=== PATIENT | female | born 1965 | race Caucasian/White ===

== ENCOUNTER 2017-02-21 08:10 | Inpatient (IN) | payer OTHER ==
[2017-02-21] MEDS ORDERED: levETIRAcetam 500 MG/5 ML INJECTION VIAL IVPB ONE ×2 (08:25→08:26)
[2017-02-21] MEDS ORDERED: LORAZEPAM CARPU-JECT 2 MG/ML DISP.SYRIN IVPUSH ONE (08:32)
[2017-02-21] MEDS ORDERED: LORAZEPAM CARPU-JECT 2 MG/ML DISP.SYRIN ONE (08:33)
--- NOTE | 2017-02-21 08:43 | PDOC ---
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 As per EMS, the patient at baseline is non verbal and non ambulatory Patient was noted to have multiple seizures at the Assisted and EMS was activated. En route, she had 2 witnessed seizures of what appeared to be tonic clonic seizures as per EMS. She was given 5 mg of IV Versed en route. As per her mortgage processor, the patients last seizure was 6 months ago. HPI is limited. <Tiffany Deng - Last Filed: 02/21/17 11:43> - General History Source: EMS, Assisted Records Exam Limitations: Clinical Condition <Josh Crabtree - Last Filed: 02/21/17 12:16> - General Chief Complaint: Seizure Stated Complaint: SEIZURE Time Seen by Provider: 02/21/17 08:15 Past History <Tiffany Deng - Last Filed: 02/21/17 11:43> - Past Medical History Seizures: Yes (EPILEPSY; NO SEIZURE SINCE 1994) Thyroid Disease: (EXOTROPIA/CONSTIPATION) - Immunization History Immunization Up to Date: Yes - Psycho/Social/Smoking Cessation Hx Anxiety: No Suicidal Ideation: No Smoking History: Never smoked Number of Cigarettes Smoked Daily: 0 Hx Alcohol Use: No Drug/Substance Use Hx: No Substance Use Type: None <Josh Crabtree - Last Filed: 02/21/17 12:16> - Past Medical History Allergies/Adverse Reactions: Allergies Allergy/AdvReac Type Severity Reaction Status Date / Time No Known Allergies Allergy Verified 02/21/17 08:45 Home Medications: Ambulatory Orders Baclofen 10 mg PO TID 05/06/15 Calcium Carbonate/Vitamin D3 [Oyster Shell 500 mg + Vit D Tb] 1 each PO BID Calcium Carbonate/Vitamin D3 [Vitamin D-3 400 Units Tablet] 1 each PO BID Carboxymethylcellulose Sodium [Refresh Liquigel] 15 ml OP Q4H 05/06/15 Cetirizine HCl [Zyrtec -] 10 mg PO DAILY 05/06/15 Chlorhexidine Gluconate 473 ml MM BID 05/06/15 Diazepam [Valium -] 15 mg PO BID 05/06/15 Docusate Liquid [Colace Liquid -] 25 mg PO DAILY 05/06/15 Olopatadine HCl [Pataday] 1 drop OU DAILY 05/06/15 Ranitidine [Zantac -] 150 mg PO BID 05/06/15 Docusate Sodium [Colace -] 100 mg PO DAILY #30 capsule 09/12/16 Review of Systems - Review of Systems Able to Perform ROS?: No <Tiffany Deng - Last Filed: 02/21/17 11:43> *Physical Exam - Vital Signs Last Vital Signs Temp Pulse Resp BP Pulse Ox 95.6 F L 80 20 133/95 100 02/21/17 08:40 02/21/17 08:40 02/21/17 08:40 02/21/17 08:40 02/21/17 08:40 - Physical Exam Comments: 02/21/17 08:56 GENERAL: Non ambulatory, non verbal. Profound mental retardation HEAD: No signs of trauma EYES: Sluggish pupils but reactive. Sclera anicteric, conjunctiva clear ENT: Auricles normal inspection, hearing grossly normal, nares patent, oropharynx clear without exudates. Moist mucosa NECK: Supple. LUNGS: Breath sounds equal, clear to auscultation bilaterally. No wheezes, and no crackles HEART: Regular rate and rhythm, normal S1 and S2, no murmurs, rubs or gallops ABDOMEN: Soft, nontender, normoactive bowel sounds. No guarding, no rebound. No masses MUSCULOSKELETAL: Severe scoliosis. EXTREMITIES: Contracted upper/lower extremities. NEUROLOGICAL: Does not follow commands. <Tiffany Deng - Last Filed: 02/21/17 11:43> Heart Score/ECG Review #1 ECG reviewed & interpreted by me at: 09:35 02/21/17 11:48 NSR 98 with 1st degree AV block, TWI III, T wave flat V5-v6, NO STD/SHONDA, QTC 474 <Josh Crabtree - Last Filed: 02/21/17 12:16> ED Treatment Course - LABORATORY CBC & Chemistry Diagram: 02/21/17 08:25 02/21/17 08:25 - RADIOLOGY Radiograph Interpretation: 02/21/17 09:19 EXAM: RAD/CHEST X-RAY PORTABLE Interpreted by Dr. Spencer Mobley IMPRESSION: Since the prior study of 01/20/2017, again noted is the severe scoliosis with convexity to the left with prominent mediastinum but clear lung lee. There is abdominal distention and an elevated right hemidiaphragm. EXAM: CT/HEAD CT WITHOUT CONTRAST Interpreted by Dr. Parag Vera IMPRESSION: No definite interval change is seen in comparison to a previous CT exam of 09/12/2016. There is no discrete infarct within the limitations of CT. No intracranial hemorrhage is noted. There is no obvious mass lesion on noncontrast imaging. No extra-axial fluid collection is seen. As on the prior study there is at least moderate dilatation of the lateral ventricles and third ventricle. The fourth ventricle is unremarkable in size. No periventricular interstitial edema is noted. As on the prior study there is partial imaging of bilateral ethmoid sinus mucosal thickening and a left sphenoid sinus mucus retention cyst/polyp. <Tiffany Deng - Last Filed: 02/21/17 11:43> - LABORATORY CBC & Chemistry Diagram: 02/21/17 08:25 02/21/17 08:25 - RADIOLOGY Radiology Studies Ordered: Category Date Time Status HEAD CT WITHOUT CONTRAST [CT] Stat CT Scan 02/21/17 08:25 Ordered CHEST X-RAY PORTABLE* [RAD] Stat Radiology 02/21/17 08:25 Ordered <Josh Crabtree - Last Filed: 02/21/17 12:16> Medical Decision Making - Medical Decision Making 02/21/17 10:48 Case discussed with Neurologist, Dr. Vincent Long. 02/21/17 11:43 MicroBlogged [facility] Hospitalist. <Tiffany Deng - Last Filed: 02/21/17 11:43> - Medical Decision Making 02/21/17 08:46 A portion of this note was documented by scribe services under my direction. I have reviewed the details of the note, within reason, and agree with the documentation with the following case summary and management plan written by me. Patient treated in the ED. Nursing notes are reviewed and incorporated into the medical decision-making. Vital signs reviewed. Peripheral IV access obtained by the nurse, laboratory studies are drawn and sent, reviewed and interpreted by myself. Vital Signs Temp Pulse Resp BP Pulse Ox 95.6 F L 80 20 133/95 100 02/21/17 08:40 02/21/17 08:40 02/21/17 08:40 02/21/17 08:40 02/21/17 08:40 51-year-old female from [facility] with history of profound mental retardation, [place] palsy with spastic quadriplegia, scoliosis, epilepsy, bilateral foot deformities, bilateral hip deformity disease status post right hip surgery, constipation, stigmatism, seizure disorder but not on medications presents with multiple seizures today. According to EMS and the mortgage processor, the patient typically does not have seizures. Patient has had multiple seizures. She is nonverbal. To was witnessed by EMS patient was given 5 IM with versed. One was witnessed by me which demonstrated left sided gaze deviation and grand mal seizures. Patient was given 1 g of Keppra and two grams of IV Ativan. We'll need to workup status epilepticus. We'll need to find underlying cause such as infectious. Head CT, labs, ECG, control seizures, and admit. 02/21/17 12:13 CBC, BMP 02/21/17 08:25 02/21/17 08:25 CMP Sodium 140 mmol/L (136-145) 02/21/17 08:25 Potassium 4.0 mmol/L (3.5-5.1) 02/21/17 08:25 Chloride 100 mmol/L (98-107) 02/21/17 08:25 Carbon Dioxide 31 mmol/L (21-32) 02/21/17 08:25 Anion Gap 9 (8-16) 02/21/17 08:25 BUN 10 mg/dL (7-18) D 02/21/17 08:25 Creatinine 0.6 mg/dL (0.55-1.02) D 02/21/17 08:25 Creat Clearance w eGFR > 60 (>60) 02/21/17 08:25 Random Glucose 81 mg/dL (74-106) 02/21/17 08:25 Lactic Acid 4.2 mmol/L (0.4-2.0) H* 02/21/17 08:25 Calcium 9.0 mg/dL (8.5-10.1) 02/21/17 08:25 Total Bilirubin 0.2 mg/dL (0.2-1.0) 02/21/17 08:25 AST 181 U/L (15-37) H D 02/21/17 08:25 ALT 205 U/L (12-78) H D 02/21/17 08:25 Alkaline Phosphatase 150 U/L (45-117) H D 02/21/17 08:25 Creatine Kinase 196 IU/L (26-192) H 02/21/17 08:25 CK-MB (CK-2) 6.729 ng/ml (0.5-3.6) H 02/21/17 08:25 Troponin I < 0.02 ng/ml (0.00-0.05) 02/21/17 08:25 Total Protein 7.2 g/dl (6.4-8.2) D 02/21/17 08:25 Albumin 3.4 g/dl (3.4-5.0) D 02/21/17 08:25 CT head and chest xray reviewed. No acute findings. UA negative. Given low temp, covered with vanc and zosyn. Case discussed with Dr. Long. Will follow as a disaster recovery consultant. Since given keppra, pt has not had another seizure. She has been stable. Case discussed with [facility] hospitalist. Will admit under med/surg admission. Case discussed in detail with admitting physician including history, physical exam and ancillary studies. Admitting physician has assumed care for the patient, will follow all pending diagnostics and will complete the evaluation and treatment. <Josh Crabtree - Last Filed: 02/21/17 12:16> *DC/Admit/Observation/Transfer - Attestations Scribe Attestion: 02/21/17 08:56 Documentation prepared by Tiffany Deng, acting as medical professionals for Josh Crabtree MD. <Tiffany Deng - Last Filed: 02/21/17 11:43> - Discharge Dispostion Admit: Yes <Josh Crabtree - Last Filed: 02/21/17 12:16> Diagnosis at time of Disposition: Status epilepticus - Discharge Dispostion Condition at time of disposition: Stable
[2017-02-21 08:44] VITALS: BMI 14.6
[2017-02-21 09:26] LABS: BASOPHIL 0.3 % (0-2.0); MCH 29.3 pg (25.7-33.7); MCHC 33.3 g/dl (32.0-36.0); MEAN CELL VOLUME 88.1 fl (80-96); MEAN PLT VOLUME 9.4 fl (7.5-11.1); NEUTROPHILS 78.2 % (42.8-82.8); PLATELET COUNT 125 K/MM3 (134-434); RDW 17.7 % (11.6-15.6); WHITE BLOOD COUNT 5.8 K/mm3 (4.0-10.0)
[2017-02-21 09:39] LABS: INR 0.96 (0.82-1.09); PROTHROMBIN TIME (PATIENT) 10.6 SEC (9.98-11.88)
[2017-02-21 09:42] LABS: ACTIVATED PTT 44.2 SECONDS (26.9-34.4)
[2017-02-21 09:49] LABS: ALBUMIN 3.4 g/dl (3.4-5.0); ANION GAP 9 (8-16); BILIRUBIN,TOTAL 0.2 mg/dL (0.2-1.0); CO2 31 mmol/L (21-32); COCKROFT - GAULT 60.2395; CREATININE 0.6 mg/dL (0.55-1.02); GLUCOSE,RANDOM 81 mg/dL (74-106); SGOT/AST 181 U/L (15-37); SGPT/ALT 205 U/L (12-78); TOT PROT 7.2 g/dl (6.4-8.2)
[2017-02-21 09:51] LABS: ALK PHOS 150 U/L (45-117); TROPONIN I < 0.02 ng/ml (0.00-0.05)
[2017-02-21] MEDS ORDERED: PIPERACILLIN/TAZOB 3.375 GM/50 ML PRE-DOCKED IVPB ONE (10:26)
[2017-02-21] MEDS ORDERED: VANCOMYCIN 1,000 MG in DEXTROSE 5%-WATER - 250 ML IVPB ONE (10:27)
[2017-02-21] MEDS ORDERED: PIPERACILLIN/TAZOB 3.375 GM 50 ML IVPB ONE (10:31)
[2017-02-21] MEDS ORDERED: DEXTROSE 50%-WATER 50 ML VIAL IVPUSH ONE (10:49)
[2017-02-21 11:04] LABS: URINE APPEARANCE CLEAR; URINE BILIRUBIN NEGATIVE (NEGATIVE); URINE BLOOD NEGATIVE (NEGATIVE); URINE COLOR STRAW; URINE GLUCOSE (UA) NEGATIVE (NEGATIVE); URINE KETONE NEGATIVE (NEGATIVE); URINE LEUK ESTERASE NEGATIVE (NEGATIVE); URINE NITRITE NEGATIVE (NEGATIVE); URINE PROTEIN NEGATIVE (NEGATIVE); URINE UROBILINOGEN NEGATIVE E.U./dl (0.2-1.0)
[2017-02-21] MEDS ORDERED: DEXTROSE 50%-WATER 50 ML DISP.SYRIN ONE (11:54)
--- NOTE | 2017-02-21 13:03 | HP ---
CHIEF COMPLAINT: Seizure PCP: Dr. Michele ([facility]) HISTORY OF PRESENT ILLNESS: This is a 51-year-old female resident of the [facility] with a history of profound mental retardation, cerebral palsy with spastic quadriplegia, scoliosis, epilepsy (maintained on diazepam 15mg po bid), and chronic constipation brought in to the ED via EMS following multiple seizures this morning. She had two tonic-clonic seizures en route and was given 5mg Versed IM by EMS. She had another witnessed seizure in the ED and was given 2mg Ativan IVP and 1g Keppra IVPB without further seizure episodes. ER course was notable for: (1) Lactic acid 4.2 (2) Head CT: Moderate dilatation of the lateral ventricles and the third ventricle which could be on the basis of aqueduct stenosis; no interval change when compared with prior study performed on 09/12/2016 Recent Travel: None Social History: [facility] resident Smoking: None Alcohol: None Family History: Non-contributory Allergies No Known Allergies Allergy (Verified 02/21/17 08:45) HOME MEDICATIONS: Home Medications Medication Instructions Recorded Baclofen 10 mg PO TID 05/06/15 Calcium Carbonate/Vitamin D3 1 each PO BID 05/06/15 [Oyster Shell 500 mg + Vit D Tb] Calcium Carbonate/Vitamin D3 1 each PO BID 05/06/15 [Vitamin D-3 400 Units Tablet] Carboxymethylcellulose Sodium 15 ml OP Q4H 05/06/15 [Refresh Liquigel] Cetirizine HCl [Zyrtec -] 10 mg PO DAILY 05/06/15 Chlorhexidine Gluconate 473 ml MM BID 05/06/15 Diazepam [Valium -] 15 mg PO BID 05/06/15 Docusate Liquid [Colace Liquid -] 25 mg PO DAILY 05/06/15 Olopatadine HCl [Pataday] 1 drop OU DAILY 05/06/15 Ranitidine [Zantac -] 150 mg PO BID 05/06/15 Docusate Sodium [Colace -] 100 mg PO DAILY #30 capsule 09/12/16 REVIEW OF SYSTEMS Patient is unable to participate. Mother and ticket printer and tagger have not been told that she had fevers or any other issues recently at the [facility]. PHYSICAL EXAMINATION GENERAL: Cachectic, contracted. HEAD: Normal with no signs of trauma. EYES: Pupils equal, round and reactive to light, extraocular movements intact, sclera anicteric, conjunctiva clear. No lid lag. EARS, NOSE, THROAT: Ears normal, nares patent, oropharynx clear without exudates. Moist mucous membranes. NECK: Normal range of motion, supple without lymphadenopathy, JVD, or masses. LUNGS: Scattered ronchi. No accessory muscle use. HEART: Regular rate and rhythm, normal S1 and S2 without murmur, rub or gallop. ABDOMEN: Soft, nontender, not distended, normoactive bowel sounds, no guarding, no rebound, no masses. No hepatomegaly or splenomegaly. MUSCULOSKELETAL: Normal range of motion at all joints. No bony deformities or tenderness. No CVA tenderness. UPPER EXTREMITIES: Contracted. No cyanosis. No clubbing. No peripheral edema. LOWER EXTREMITIES: Contracted. 2+ pulses, warm, well-perfused. No calf tenderness. No peripheral edema. NEUROLOGICAL: Nonverbal at baseline. SKIN: Warm, dry, normal turgor, no rashes or lesions noted, normal capillary refill. ASSESSMENT/PLAN: 51 year old female with known history of epilepsy presenting with breakthrough seizures. Problem List - Problem (1) Seizures Assessment/Plan: -Given Keppra 1g in ED; continue 500mg po bid -Seizure precautions Code(s): R56.9 - UNSPECIFIED CONVULSIONS (2) Thrombocytopenia Assessment/Plan: -Mild, no planned procedures or active bleeding -Monitor Code(s): D69.6 - THROMBOCYTOPENIA, UNSPECIFIED (3) Hypothermia Assessment/Plan: -Isolated measurement on arrival, repeat is normal -No other SIRS criteria present -Given antibiotics in ED out of suspicion for infection based on high lactate, however lactate may be secondary to seizure activity alone. Observe off abx. Give IVF, re-check lactate -Scattered ronchi on exam; repeat CXR tomorrow Code(s): T68.XXXA - HYPOTHERMIA, INITIAL ENCOUNTER (4) Elevated transaminase level Assessment/Plan: -Abdominal u/s -Follow Code(s): R74.0 - NONSPEC ELEV OF LEVELS OF TRANSAMNS & LACTIC ACID DEHYDRGNSE (5) DVT prophylaxis Assessment/Plan: -Lovenox 40mg sq daily Code(s): [id number] - Visit type - Emergency Visit Emergency Visit: Yes ED Registration Date: 02/21/17 Care time: The patient presented to the Emergency Department on the above date and was hospitalized for further evaluation of their emergent condition. - New Patient This patient is new to me today: Yes Date on this admission: 02/21/17 - Critical Care Critical Care patient: No
[2017-02-21] MEDS ORDERED: ONDANSETRON 4 MG/2 ML VIAL IVPB PRN (13:17)
[2017-02-21] MEDS ORDERED: LORAZEPAM CARPU-JECT 2 MG/ML DISP.SYRIN IVPUSH PRN (13:17)
[2017-02-21] MEDS ORDERED: BISACODYL 10 MG SUPP.RECT RC PRN (13:29)
[2017-02-21] MEDS ORDERED: SODIUM CHLORIDE 1,000 ML IV SCH (13:45)
--- NOTE | 2017-02-21 15:27 | EKG ---
Test Reason : Blood Pressure : / mmHG Vent. Rate : 098 BPM Atrial Rate : 098 BPM P-R Int : 216 ms QRS Dur : 082 ms QT Int : 372 ms P-R-T Axes : 031 029 001 degrees QTc Int : 474 ms SINUS RHYTHM WITH 1ST DEGREE A-V BLOCK NONSPECIFIC T WAVE ABNORMALITY ABNORMAL ECG WHEN COMPARED WITH ECG OF 20-JAN-2017 13:26, VENT. RATE HAS INCREASED BY 36 BPM NONSPECIFIC T WAVE ABNORMALITY, WORSE IN INFERIOR LEADS NONSPECIFIC T WAVE ABNORMALITY, WORSE IN ANTEROLATERAL LEADS CLINICAL CORRELATION IS RECOMMENDED BASELINE ARTIFACT Confirmed by MARI CORREA, THERESA ([id number]) on 02/21/2017 3:27:14 PM Referred By: Confirmed By:THERESA GUERRA MD
[2017-02-21] MEDS ORDERED: HYDROmorphone HCL CARPU-JECT 1 MG/1 ML DISP.SYRIN ONE (17:28)
[2017-02-21] MEDS ORDERED: ONDANSETRON 4 MG/2 ML VIAL ONE (17:28)
--- NOTE | 2017-02-21 18:27 | CONSULT ---
Consult - text type - Consultation Consultation Note: NEUROLOGY CONSULTATION is greatly appreciated: Events reviewed and patient examined in ED with her mother and [facility] childcare aide present. Both aide in history. 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 On baclofen, cetirizine, ranitidine and diazepam 15 mg BID. Last seizure was 6 mos. According to mother, Pt has been o Dilantin for most of her life. Transferred to [facility] 2 mos ago. According to Aide, Pt has not been on AED's since admission. Now transferred to ED after witnessed seizure. Given lorazepam and loaded with levetiracetam 500 mg IV. On levetiracetam 50 mg MARY ANN: febrile (?). Neck rigid. Scoliotic. Severe, contractures elbows, wrists, fingers, hips, knees, ankles. Dysmorphic. Neuro: Opens and closes eyes. Follows no commands. PE2 mm RRLA. No response to threat. Withdraws all 4's to pinch. Clonus at both wrists, ankles Brisk reflexes. IMP: Severe, B/L cerebral dysfunction (Severe static encephalopathy/ Cerebral palsy). Spastic tetrapareisis. Seizure disorder. SUGGEST: Continue levetiracetam elixor 500 mg q 12 hrs. R/o occult infection and Rx if indicated. Thank you very much, Vincent Long MD
[2017-02-21] MEDS: diazePAM 5 MG TABLET PO SCH (22:48)
[2017-02-21] MEDS: RANITIDINE HCL 150 MG TABLET (FP) PO SCH (22:48)
[2017-02-21] MEDS: CALCIUM 500MG/VIT-D 200 UNITS COMBO TABLET (FP) PO SCH (22:48)
[2017-02-21] MEDS: CHOLECALCIFEROL (VIT D3 ORAL SOLUTION) 400 UNIT/1 ML DROPS PO SCH (23:30)
[2017-02-21] MEDS: CHLORHEXIDINE GLUCONATE 0.12% 15ML CUP MM SCH (23:31)
[2017-02-21] MEDS: levETIRAcetam 500 MG/5 ML ORAL SOLUTION (UNIT-DOSE CUPS) PO SCH (23:31)
[2017-02-22 07:56] LABS: CALCIUM 8.8 mg/dL (8.5-10.1)
[2017-02-22 08:02] LABS: ALBUMIN 2.9 g/dl (3.4-5.0); ALK PHOS 136 U/L (45-117); ANION GAP 12 (8-16); BILIRUBIN,TOTAL 0.4 mg/dL (0.2-1.0); CO2 26 mmol/L (21-32); CREATININE 0.5 mg/dL (0.55-1.02); GLUCOSE,RANDOM 70 mg/dL (74-106); MAGNESIUM 1.9 mg/dL (1.8-2.4); SGOT/AST 156 U/L (15-37); SGPT/ALT 176 U/L (12-78); TOT PROT 6.2 g/dl (6.4-8.2)
[2017-02-22 08:14] LABS: MCH 29.3 pg (25.7-33.7); MCHC 33.7 g/dl (32.0-36.0); MEAN CELL VOLUME 87.1 fl (80-96); MEAN PLT VOLUME 9.2 fl (7.5-11.1); PLATELET COUNT 135 K/MM3 (134-434); RDW 18.1 % (11.6-15.6); WHITE BLOOD COUNT 9.7 K/mm3 (4.0-10.0)
[2017-02-22] MEDS ORDERED: SENNOSIDES 8.6MG TABLET (FP) PO SCH (10:00)
[2017-02-22] MEDS ORDERED: LORATADINE 10 MG TABLET PO SCH (10:00)
[2017-02-22 10:05] LABS: PLATELET ESTIMATE ADEQUATE (NORMAL)
[2017-02-22] MEDS: ENOXAPARIN NA (PORCINE) 40 MG/0.4 ML DISP.SYRIN SQ SCH (10:10)
[2017-02-22] MEDS: diazePAM 5 MG TABLET PO SCH (10:10)
[2017-02-22] MEDS: CHLORHEXIDINE GLUCONATE 0.12% 15ML CUP MM SCH (10:11)
[2017-02-22] MEDS: RANITIDINE HCL 150 MG TABLET (FP) PO SCH (10:11)
[2017-02-22] MEDS: CALCIUM 500MG/VIT-D 200 UNITS COMBO TABLET (FP) PO SCH (10:11)
[2017-02-22] MEDS: CHOLECALCIFEROL (VIT D3 ORAL SOLUTION) 400 UNIT/1 ML DROPS PO SCH (10:13)
[2017-02-22] MEDS: levETIRAcetam 500 MG/5 ML ORAL SOLUTION (UNIT-DOSE CUPS) PO SCH (10:13)
[2017-02-22] MEDS ORDERED: ACETAMINOPHEN 325 MG TABLET (FP) ONE (11:18)
--- NOTE | 2017-02-22 13:19 | PN ---
Physical Exam: SUBJECTIVE: Patient seen and examined. Aide at the bedside attempting to feed patient. Noted patient not swallowing spoonfuls properly. Patient warm to touch. Aide said pt drank small sips of apple juice this morning. OBJECTIVE: abdomen grossly distended, hypoactive bowel wounds Appears to be vomiting bile, NPO now, insert NGT to protect airway Adominal xray to r/o obstruction +blood culture pending organism, ID consulted Repeated blood cultures Tylenol for fever Vital Signs Period Temp Pulse Resp BP Sys/Ascencio Pulse Ox Last 24 Hr 97.0 F-100.3 F 95-117 18-20 83-102/57-73 96-99 GENERAL: lethargic NECK: Trachea midline, full range of motion, supple. LUNGS: Breath sounds diminished, HEART: tachycardia @117 ABDOMEN: distended abdomen, hypoactive bowel sounds EXTREMITIES: no edema. NEUROLOGICAL: Lethargic, has profound MR Laboratory Results - last 24 hr 02/22/17 02/22/17 06:00 06:00 WBC 9.7 D RBC 4.33 Hgb 12.7 Hct 37.7 MCV 87.1 MCHC 33.7 RDW 18.1 H Plt Count 135 MPV 9.2 Neutrophils % 90.0 H Lymphocytes % 5.0 L D Monocytes % 4.0 Eosinophils % 0.0 D Basophils % 0.0 Band Neutrophils 0.0 Differential Comment Manual diff done Platelet Estimate Adequate Sodium 138 Potassium 3.9 Chloride 100 Carbon Dioxide 26 Anion Gap 12 BUN 12 Creatinine 0.5 L Creat Clearance w eGFR > 60 Random Glucose 70 L Calcium 8.8 Magnesium 1.9 Total Bilirubin 0.4 D AST 156 H ALT 176 H Alkaline Phosphatase 136 H Total Protein 6.2 L Albumin 2.9 L Active Medications Generic Name Dose Route Start Last Admin Trade Name Freq PRN Reason Stop Dose Admin Bisacodyl 10 mg 02/21/17 13:29 Dulcolax Suppository - RC DAILY PRN CONSTIPATION Calcium Carbonate/Cholecalciferol 1 tab 02/21/17 22:00 02/22/17 10:11 Os-Hitesh 500+D - PO 1 tab BID DARWIN Administration Chlorhexidine Gluconate 30 ml 02/21/17 22:00 02/22/17 10:11 Peridex - MM 30 ml BID DARWIN Administration Cholecalciferol 400 unit 02/21/17 22:00 02/22/17 10:13 Vitamin D3 Oral Solution - PO 1 ml BID DARWIN Administration Diazepam 15 mg 02/21/17 22:00 02/22/17 10:10 Valium - PO 15 mg BID DARWIN Administration Enoxaparin Sodium 40 mg 02/22/17 10:00 02/22/17 10:10 Lovenox - SQ 40 mg DAILY DARWIN Administration Levetiracetam 500 mg 02/21/17 22:00 02/22/17 10:13 Keppra Oral Solution - PO 500 mg BID DARWIN Administration Loratadine 10 mg 02/22/17 10:00 02/22/17 10:11 Claritin - PO 10 mg DAILY DARWIN Administration Lorazepam 1 mg 02/21/17 13:17 Ativan Injection - IVPUSH Q2H PRN seizure Non-Formulary Medication 15 ml 02/21/17 14:00 Carboxymethylcellulose Sodium [Refresh Liquigel] OP QID DARWIN Ondansetron HCl 4 mg 02/21/17 13:17 Zofran Injection IVPB Q6H PRN NAUSEA Ranitidine HCl 150 mg 02/21/17 22:00 02/22/17 10:11 Zantac - PO 150 mg BID DARWIN Administration Senna 2 tab 02/22/17 10:00 02/22/17 10:11 Senna - PO 2 tab DAILY DARWIN Administration ASSESSMENT/PLAN: Patient is a 51 year old female who resides at [facility]. 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 She was reported to have had multiple seizures in the [facility] as well as en route to the hospital, where she had 2 witnessed seizures which appeared to be tonic clonic seizures as per ED notes. Neurology: Seizures - acute on chronic Assessment/Plan: Patients presents to ER with multiple witnessed seizure activity In ED given Lorazepam and loaded with levetiracetam 500 mg IV On Keppra 500mg q12 IV and Valium 15mg PO BID (home dose) Last seizure reported to be over 6 months ago Neuro notes reviewed, spoke to Dr. Long about NPO status and converting Valium to standing Ativan 0.5mg for suspected SBO Neurologist aware and in agreement GI: Abdominal distention/rule out SBO Assessment/Plan: Abdomen XRay pending Keep NPO NGT to low intermittent suction Convert Keppra to IV, will d/c valium and convert to standing dose of ativan 0.5mg q6 Monitor for seizures Consider GI consult if no improvement ID: Sepsis rule out - acute Assessement/Plan: Patient now having fevers, tachycardia, lethargy, hypotension Lactic acidosis on admission, now resolved blood culture pending organism, Repeated blood cultures pending ID consulted, started on Vancomycin Endocrine: Hypoglycemia - acute vs. chronic Assessment/Plan: BGMs q4 while NPO F.E.N. Fluids: D5 NS @ 75cc/hr Electrolytes: monitor BMP Nutrition: NPO - NG tube to LIT Prophylaxis: GI: Reglan, Protonix DVT: Lovenox 40mg Disposition: Full Code. Visit type - Emergency Visit Emergency Visit: Yes ED Registration Date: 02/21/17 Care time: The patient presented to the Emergency Department on the above date and was hospitalized for further evaluation of their emergent condition. - New Patient This patient is new to me today: Yes Date on this admission: 02/22/17 - Critical Care Critical Care patient: No - Discharge Referral Referred to [facility] Med [facility].C[facility] No
--- NOTE | 2017-02-22 13:25 | CONSULT ---
Consult Consult Specialty:: infectious diseases Reason for Consultation:: bacteremia,sepsis,lactic acidosis - History of Present Illness History of Present Illness: a 51-year-old female resident of the [facility] with a history of profound mental retardation, cerebral palsy with spastic quadriplegia, scoliosis, epilepsy (maintained on diazepam 15mg po bid), and chronic constipation In the ed patient had seizures and was treated for the same was called because now patient has positive blood cx patient on evaluation looks septic and has distended stomach - History Source History Provided By: Medical Record Limitations to Obtaining History: Clinical Condition - Alcohol/Substance Use Hx Alcohol Use: No - Smoking History Smoking history: Never smoked Aproximately how many cigarettes per day: 0 Home Medications - Allergies Allergies/Adverse Reactions: Allergies Allergy/AdvReac Type Severity Reaction Status Date / Time No Known Allergies Allergy Verified 02/21/17 08:45 - Home Medications Home Medications: Ambulatory Orders Bisacodyl [Biscolax] 10 mg RC DAILY PRN 02/21/17 Calcium 500Mg/Vit-D 200 Units [Os-Hitesh 500+D -] 1 combo PO BID 02/21/17 Carboxymethylcellulose Sodium [Refresh Liquigel] 15 ml OP QID 02/21/17 Cetirizine HCl [24Hour Allergy] 10 mg PO DAILY 02/21/17 Chlorhexidine Gluconate 30 ml MM BID 02/21/17 Cholecalciferol (Vitamin D3) [Vitamin D3 Oral Solution -] 400 unit PO BID Diazepam [Valium] 15 mg PO BID 02/21/17 Ranitidine [Zantac -] 150 mg PO BID 02/21/17 Sennosides [Senna] 2 tab PO DAILY 02/21/17 Review of Systems Unable to obtain ROS, reason: unable to obtain Physical Exam Vital Signs: Vital Signs Temperature 100.3 F H 02/22/17 10:00 Pulse Rate 117 H 02/22/17 10:00 Respiratory Rate 18 02/22/17 10:00 Blood Pressure 102/60 02/22/17 10:00 O2 Sat by Pulse Oximetry (%) 96 02/22/17 09:00 Constitutional: Yes: Other (contracted) Cardiovascular: Yes: Regular Rate and Rhythm Respiratory: Yes: Regular, Rhonchi Gastrointestinal: Yes: Distention, Hyperactive Bowel Sounds Musculoskeletal: Yes: Other Extremities: Yes: Other Neurological: Yes: Other (obtunded) Psychiatric: Yes: Other Labs: CBC, BMP 02/22/17 06:00 02/22/17 06:00 Imaging - Results Chest X-ray: Report Reviewed, Image Reviewed X-ray: Report Reviewed, Image Reviewed Cat Scan: Report Reviewed, Image Reviewed Assessment/Plan Seizures Abdominal distention Sepsis Hypoglycemia lactic acidosis plan iv fluids continue abx zosyn and vanco ng tube close monitoring for fever
[2017-02-22] MEDS ORDERED: ACETAMINOPHEN 1000 MG/100 ML VIAL (NON FORMULARY) IVPB ONE ×2 (13:28→15:15)
[2017-02-22] MEDS ORDERED: ACETAMINOPHEN 650 MG SUPP.RECT PR PRN (13:56)
[2017-02-22] MEDS ORDERED: PANTOPRAZOLE SODIUM 40 MG in SODIUM CHLORIDE 100 ML IVPB SCH (14:00)
[2017-02-22] MEDS ORDERED: LORAZEPAM CARPU-JECT 2 MG/ML DISP.SYRIN IVPUSH PRN (15:46)
[2017-02-22] MEDS ORDERED: LORAZEPAM CARPU-JECT 2 MG/ML DISP.SYRIN IVPUSH SCH ×3 (16:00→17:15)
[2017-02-22] MEDS: METOCLOPRAMIDE HCL INJECTION 10 MG/2 ML VIAL IVPB SCH ×2 (16:55→22:12)
[2017-02-22] MEDS: VANCOMYCIN 1,250 MG in DEXTROSE 5%-WATER - 250 ML IVPB SCH (16:55)
[2017-02-22] MEDS: DEXTROSE 5%-NORMAL SALINE 1,000 ML IV SCH (17:02)
[2017-02-22] MEDS ORDERED: PANTOPRAZOLE SODIUM 100 ML IVPB SCH (17:15)
[2017-02-22] MEDS ORDERED: BISACODYL 10 MG SUPP.RECT RC ONE (17:40)
[2017-02-22] MEDS ORDERED: BISACODYL 10 MG SUPP.RECT PR ONE (17:40)
[2017-02-22] MEDS ORDERED: PIPERACILLIN/TAZOB 3.375 GM/50 ML PRE-DOCKED IVPB ONE ×2 (20:00→22:15)
[2017-02-22] MEDS: LORazepam 2 MG/ML SDV VIAL IVPUSH SCH (22:12)
[2017-02-22] MEDS: levETIRAcetam 500 MG/5 ML INJECTION VIAL IVPB SCH (22:12)
[2017-02-23] MEDS: LORazepam 2 MG/ML SDV VIAL IVPUSH SCH ×3 (04:09→15:02)
[2017-02-23] MEDS: METOCLOPRAMIDE HCL INJECTION 10 MG/2 ML VIAL IVPB SCH ×2 (06:13→15:13)
[2017-02-23 08:10] LABS: BASOPHIL 0.3 % (0-2.0); EOSINOPHIL 0.1 % (0-4.5); MCH 29.6 pg (25.7-33.7); MCHC 33.6 g/dl (32.0-36.0); MEAN CELL VOLUME 88.1 fl (80-96); MEAN PLT VOLUME 9.4 fl (7.5-11.1); PLATELET COUNT 122 K/MM3 (134-434); RDW 18.3 % (11.6-15.6); WHITE BLOOD COUNT 9.5 K/mm3 (4.0-10.0)
--- NOTE | 2017-02-23 08:34 | PN ---
Physical Exam: SUBJECTIVE: Patient seen and examined. Aide at the bedside. Patient is non verbal at baseline. OBJECTIVE: abdomen less distended, hypoactive bowel wounds Vomiting yesterday, made NPO and NGT to protect airway Adominal xray shows large amount of retained stool +blood culture pending organism, ID consulted Repeated blood cultures pending Remains febrile 101F, hypotensive and tachycardic, now on Vanco and Zosyn Will order one time IV Tylenol and monitor AST/ALT elevated Vital Signs Period Temp Pulse Resp BP Sys/Ascencio Pulse Ox Last 24 Hr 97.3 F-100.4 F 104-130 18-20 88-102/49-62 96-96 GENERAL: lethargic NECK: Trachea midline, full range of motion, supple. LUNGS: Breath sounds diminished, HEART: tachycardia @101 ABDOMEN: less distended abdomen, hypoactive bowel sounds EXTREMITIES: no edema. NEUROLOGICAL: Lethargic, has profound MR, seizure precautions Laboratory Results - last 24 hr 02/22/17 02/22/17 02/23/17 06:00 17:29 07:15 WBC 9.5 RBC 3.86 Hgb 11.4 D Hct 34.0 MCV 88.1 MCHC 33.6 RDW 18.3 H Plt Count 122 L MPV 9.4 Neutrophils % 90.0 H 84.0 H Lymphocytes % 5.0 L D 8.9 D Monocytes % 4.0 6.7 Eosinophils % 0.0 D 0.1 D Basophils % 0.0 0.3 D Band Neutrophils 0.0 Differential Comment Manual diff done Platelet Estimate Adequate POC Glucometer 108 Active Medications Generic Name Dose Route Start Last Admin Trade Name Zhouq PRN Reason Stop Dose Admin Acetaminophen 650 mg 02/22/17 13:56 Tylenol Suppository - W[place] Q6H PRN FEVER OR PAIN Bisacodyl 10 mg 02/21/17 13:29 Dulcolax Suppository - RC DAILY PRN CONSTIPATION Enoxaparin Sodium 40 mg 02/22/17 10:00 02/22/17 10:10 Lovenox - SQ 40 mg DAILY DARWIN Administration Vancomycin HCl 1,250 mg/ 250 mls @ 166.667 mls/hr 02/22/17 13:30 02/22/17 16:55 Dextrose IVPB 166.667 mls/hr DAILY DARWIN Administration Protocol Dextrose/Sodium Chloride 1,000 mls @ 75 mls/hr 02/22/17 14:15 02/22/17 17:02 D5-Ns - IV 75 mls/hr ASDIR DARWIN Administration Levetiracetam 500 mg 02/22/17 22:00 02/22/17 22:12 Keppra Injection - IVPB 500 mg BID DARWIN Administration Lorazepam 0.5 mg 02/22/17 17:39 02/23/17 04:09 Ativan Injection - IVPUSH 0.5 mg Q6H-IV DARWIN Administration Metoclopramide HCl 10 mg 02/22/17 14:15 02/23/17 06:13 Reglan Injection - IVPB 10 mg Q8H DARWIN Administration Non-Formulary Medication 15 ml 02/21/17 14:00 Carboxymethylcellulose Sodium [Refresh Liquigel] OP QID DARWIN Ondansetron HCl 4 mg 02/21/17 13:17 Zofran Injection IVPB Q6H PRN NAUSEA Piperacillin Sod/Tazobactam Sod 3.375 gm 02/23/17 02:00 Zosyn 3.375gm Ivpb (Pre-Docked) IVPB Q8H-IV DARWIN Protocol ASSESSMENT/PLAN: Patient is a 51 year old female who resides at [facility]. 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 She was reported to have had multiple seizures in the [facility] as well as en route to the hospital, where she had 2 witnessed seizures which appeared to be tonic clonic seizures as per ED notes. ID: Sepsis - acute Assessement/Plan: Patient continues to have fevers, tachycardia, lethargy, hypotension Lactic acidosis on admission, now resolved blood culture pending organism, Repeated blood cultures pending ID consulted, started on Vancomycin and Zosyn Continue to keep NPO, IVFs, vitals q4 Neurology: Seizures - acute on chronic Assessment/Plan: Patients presents to ER with multiple witnessed seizure activity In ED given Lorazepam and loaded with levetiracetam 500 mg IV On Keppra 500mg q12 IV and Valium 15mg PO BID (home dose) Pt is NPO, Valium on hold and replaced with Ativan 0.5mg q6 Last seizure reported to be over 6 months ago GI: Abdominal distention/rule out SBO Assessment/Plan: Abdomen XRay shows fecal retention, no acute pathology Abdomen less distended today, hypoactive bowels NGT to LIT to protect airway for vomiting episodes apx 200cc of brown drainage noted hmg/hct stable Elevated AST/ALT Assessment/Plan: AST 181>156, ALT 205>176 Continue to trend Hepatitis panel ordered GI consult Endocrine: Hypoglycemia - acute vs. chronic Assessment/Plan: BGMs q4 while NPO F.E.N. Fluids: D5 NS @ 75cc/hr Electrolytes: monitor BMP Nutrition: NPO - NG tube to LIT Prophylaxis: GI: Reglan, Protonix BID DVT: Lovenox 40mg Disposition: Full Code. Visit type - Emergency Visit Emergency Visit: Yes ED Registration Date: 02/21/17 Care time: The patient presented to the Emergency Department on the above date and was hospitalized for further evaluation of their emergent condition. - New Patient This patient is new to me today: No - Critical Care Critical Care patient: No - Discharge Referral Referred to [facility] Med P.C.: No
[2017-02-23] MEDS ORDERED: ACETAMINOPHEN 1000 MG/100 ML VIAL (NON FORMULARY) IVPB ONE (08:35)
[2017-02-23 08:40] LABS: ALBUMIN 2.5 g/dl (3.4-5.0); ANION GAP 10 (8-16); CO2 25 mmol/L (21-32); GLUCOSE,RANDOM 90 mg/dL (74-106)
[2017-02-23 08:45] LABS: ALK PHOS 103 U/L (45-117); BILIRUBIN,TOTAL 0.5 mg/dL (0.2-1.0); CREATININE 0.5 mg/dL (0.55-1.02); SGOT/AST 98 U/L (15-37); SGPT/ALT 128 U/L (12-78); TOT PROT 5.4 g/dl (6.4-8.2)
[2017-02-23] MEDS ORDERED: PANTOPRAZOLE SODIUM 80 MG in SODIUM CHLORIDE 100 ML IVPB SCH (09:00)
[2017-02-23] MEDS ORDERED: PIPERACILLIN/TAZOB 3.375 GM/50 ML PRE-DOCKED IVPB ONE (09:00)
[2017-02-23] MEDS: levETIRAcetam 500 MG/5 ML INJECTION VIAL IVPB SCH ×2 (09:01→21:30)
[2017-02-23] MEDS: ENOXAPARIN NA (PORCINE) 40 MG/0.4 ML DISP.SYRIN SQ SCH (09:01)
[2017-02-23] MEDS ORDERED: POTASSIUM CHLORIDE 10 MEQ in DEXTROSE 5%-NORMAL SALINE 1,000 ML IVPB SCH ×2 (09:45→13:52)
[2017-02-23] MEDS ORDERED: PANTOPRAZOLE SODIUM 100 ML IVPB SCH ×2 (10:00→22:00)
[2017-02-23] MEDS: VANCOMYCIN 1,250 MG in DEXTROSE 5%-WATER - 250 ML IVPB SCH (10:57)
--- NOTE | 2017-02-23 14:05 | PN ---
Progress Note, Physician History of Present Illness: patient still not doing well still with sepsis and fevers but looks better than yesterday - Current Medication List Current Medications: Active Medications Acetaminophen (Tylenol Suppository -) 650 mg MS Q6H PRN PRN Reason: FEVER OR PAIN Last Admin: 02/23/17 09:29 Dose: 650 mg Acetaminophen (Ofirmev Injection -) 1,000 mg IVPB ONCE ONE Stop: 02/23/17 08:36 Last Admin: 02/23/17 09:52 Dose: Not Given Bisacodyl (Dulcolax Suppository -) 10 mg RC DAILY PRN PRN Reason: CONSTIPATION Last Admin: 02/23/17 09:28 Dose: 10 mg Enoxaparin Sodium (Lovenox -) 40 mg SQ DAILY [facility] Last Admin: 02/23/17 09:01 Dose: 40 mg Vancomycin HCl 1,250 mg/ (Dextrose) 250 mls @ 166.667 mls/hr IVPB DAILY DARWIN PRN Reason: Protocol Last Admin: 02/23/17 10:57 Dose: 166.667 mls/hr Dextrose/Sodium Chloride (D5-Ns -) 1,000 mls @ 75 mls/hr IV ASDIR [facility] Last Admin: 02/22/17 17:02 Dose: 75 mls/hr Pantoprazole Sodium (Protonix 40mg Ivpb (Pre-Docked)) 100 mls @ 200 mls/hr IVPB BID [facility] Last Admin: 02/23/17 10:18 Dose: 200 mls/hr Potassium Chloride 10 meq/ (Dextrose/Sodium Chloride) 1,005 mls @ 75 mls/hr IVPB Q13H [facility] Levetiracetam (Keppra Injection -) 500 mg IVPB BID [facility] Last Admin: 02/23/17 09:01 Dose: 500 mg Lorazepam (Ativan Injection -) 0.5 mg IVPUSH Q6H-IV DARWIN Last Admin: 02/23/17 09:38 Dose: Not Given Metoclopramide HCl (Reglan Injection -) 10 mg IVPB Q8H [facility] Last Admin: 02/23/17 06:13 Dose: 10 mg Non-Formulary Medication (Carboxymethylcellulose Sodium [Refresh Liquigel]) 15 ml OP QID [facility] Ondansetron HCl (Zofran Injection) 4 mg IVPB Q6H PRN PRN Reason: NAUSEA Piperacillin Sod/Tazobactam Sod (Zosyn 3.375gm Ivpb (Pre-Docked)) 3.375 gm IVPB Q8H-IV DARWIN PRN Reason: Protocol - Objective Vital Signs: Vital Signs Temperature 98.8 F 02/23/17 10:00 Pulse Rate 101 H 02/23/17 10:00 Respiratory Rate 18 02/23/17 10:00 Blood Pressure 94/59 02/23/17 10:00 O2 Sat by Pulse Oximetry (%) 96 02/23/17 09:00 Constitutional: Yes: Calm, Mild Distress Cardiovascular: Yes: Regular Rate and Rhythm Respiratory: Yes: Regular, Poor Air Entry Gastrointestinal: Yes: Soft, Other (ng tube in place) Musculoskeletal: Yes: Other Extremities: Yes: Other (contracted) Psychiatric: Yes: Other Labs: CBC, BMP 02/23/17 07:15 02/23/17 07:15 INR, PTT INR 0.96 (0.82-1.09) 02/21/17 08:25 Assessment/Plan Seizures Abdominal distention Sepsis Hypoglycemia lactic acidosis plan iv fluids cx result noted continue abx hydration
[2017-02-23] MEDS: PIPERACILLIN/TAZOB 3.375 GM 50 ML IVPB SCH ×2 (15:01→17:30)
[2017-02-23] MEDS: PIPERACILLIN/TAZOB 3.375 GM/50 ML PRE-DOCKED IVPB SCH (15:03)
[2017-02-23] MEDS ORDERED: SODIUM CHLORIDE 500 ML IV STA (16:14)
[2017-02-23] MEDS ORDERED: ONDANSETRON 4 MG/2 ML VIAL IVPB PRN (17:37)
[2017-02-23] MEDS ORDERED: BISACODYL 10 MG SUPP.RECT RC PRN (17:37)
[2017-02-23] MEDS: CARBOXYMETHYLCELLULOSE SODIUM OP SCH ×3 (17:46→18:17)
[2017-02-23] MEDS ORDERED: ACETAMINOPHEN 650 MG SUPP.RECT PR SCH (18:00)
[2017-02-23] MEDS: DEXTROSE 5%-NORMAL SALINE 1,000 ML IV SCH (18:17)
--- NOTE | 2017-02-23 18:47 | CON.GI ---
Consult Consult Specialty:: GI Referred by:: Hospitalists Reason for Consultation:: Abnormal LFTs, abdominal distention - History of Present Illness Chief Complaint: Patient non-verbal History of Present Illness: 51F admitted from [facility] for evaluation of seizures through ER. Her LFTs were elevated on admission, her abdomen was described as distended, she was disimpacted and started having BM's, had an NGT placed with 200cc aspirate suctioned as of now. She was noted to be hypotensive, started on Abx, seen by ID and is being transferred to the ICU. LDFTs have trended down and abdominal US was unable to evaluate soft tissue structures in the abdomen given her body habitus - History Source History Provided By: Medical Record, Caregiver (Nurse) - Past Medical History Additional Medical History: Profound MR - Alcohol/Substance Use Hx Alcohol Use: No - Smoking History Smoking history: Never smoked Aproximately how many cigarettes per day: 0 - Social History Usual Living Arrangement: Jail ADL: Support Services Place of : [facility] Home Medications - Allergies Allergies/Adverse Reactions: Allergies Allergy/AdvReac Type Severity Reaction Status Date / Time No Known Allergies Allergy Verified 02/21/17 08:45 - Home Medications Home Medications: Ambulatory Orders Bisacodyl [Biscolax] 10 mg RC DAILY PRN 02/21/17 Calcium 500Mg/Vit-D 200 Units [Os-Hitesh 500+D -] 1 combo PO BID 02/21/17 Carboxymethylcellulose Sodium [Refresh Liquigel] 15 ml OP QID 02/21/17 Cetirizine HCl [24Hour Allergy] 10 mg PO DAILY 02/21/17 Chlorhexidine Gluconate 30 ml MM BID 02/21/17 Cholecalciferol (Vitamin D3) [Vitamin D3 Oral Solution -] 400 unit PO BID Diazepam [Valium] 15 mg PO BID 02/21/17 Ranitidine [Zantac -] 150 mg PO BID 02/21/17 Sennosides [Senna] 2 tab PO DAILY 02/21/17 Family Disease History - Family Disease History Family History: Unable to Obtain Review of Systems Unable to obtain ROS, reason: Patient non-verbal Physical Exam-GI Vital Signs: Vital Signs Temperature 100.2 F H 02/23/17 14:00 Pulse Rate 102 H 02/23/17 14:00 Respiratory Rate 20 02/23/17 14:00 Blood Pressure 85/57 02/23/17 14:00 O2 Sat by Pulse Oximetry (%) 96 02/23/17 09:00 Constitutional: Yes: Anxious Eyes: No: Sclera Icterus Cardiovascular: Yes: Regular Rate and Rhythm Respiratory: Yes: Other (breath sounds by upper airway noise) Labs: CBC, BMP 02/23/17 07:15 02/23/17 07:15 INR, PTT INR 0.96 (0.82-1.09) 02/21/17 08:25 Imaging - Results Ultrasound: Report Reviewed Problem List - Problems (1) Elevated liver enzymes Assessment/Plan: Trending down without intervention. Suspect ractive secondary to systemic process and from seizure activity. Abdominal US was not a viable modaliy for evaluating solid organs. CT scan of the abdomen/pelvis could be considered to evaluate liver/biliary tract Continue to monitor LFTs Avoid hepatotoxic agents Code(s): R74.8 - ABNORMAL LEVELS OF OTHER SERUM ENZYMES (2) Constipation Assessment/Plan: MiraLAX 17g daily Ok with dulcolax suppository daily PRN Code(s): K59.00 - CONSTIPATION, UNSPECIFIED Qualifiers: Constipation type: unspecified constipation type Qualified Code(s): K59.00 - Constipation, unspecified
[2017-02-23] MEDS: LORAZEPAM CARPU-JECT 2 MG/ML DISP.SYRIN IVPUSH SCH (21:21)
[2017-02-23] MEDS ORDERED: PT OWN MED DRAWER 7, Y5N ONE (21:31)
[2017-02-23] MEDS ORDERED: PANTOPRAZOLE SODIUM 40 MG/100 ML PRE-DOCKED IVPB SCH (22:00)
[2017-02-23] MEDS ORDERED: METOCLOPRAMIDE HCL INJECTION 10 MG/2 ML VIAL IVPB SCH (22:00)
--- NOTE | 2017-02-23 23:07 | CONSULT ---
Consult Consult Specialty:: Pulmonary/Critical Care Reason for Consultation:: Shock - History of Present Illness Chief Complaint: Shock History of Present Illness: This is a 51 year old Group Home resident with a past medical history of severe mental retardation, cerebral palsy with spastic quadriplegia, scoliosis, and epilepsy BIBEMS for seizure activity with hospital course complicated by fever and hypotension now being admitted to ICU for further management of presumed septic shock. At baseline, patient is non-verbal and non-ambulatory. She was noticed to have multiple seizures in the [facility] for which EMS was activated. By report she had tonic clonic seizures for which she received versed with resolution. She was admitted and continued on AEDs. She has chronic constipation and was noted to have a distended abdomen and is s/p NGT placement on 02/22. Today she was febrile (TMax 100.3) and hypotensive to 80s/50s concerning for septic shock. Of note on admission blood cultures from 02/21 were positive for coag negative staph though repeat cultures have remained negative. She was started on Vanc/Zosyn and given 1 L IVF. She is now being admitted to the ICU for further management of shock. On arrival she is normotensive though hypoxic to low 90s on RA with productive cough of yellow sputum. STAT CXR ordered, gutierrez-culture ordered. Continued on Vanc/Zo. - History Source History Provided By: Medical Record Limitations to Obtaining History: Unresponsive - Past Medical History [employer]IT[employer] TE[employer]ER: Yes: Seizure, Other (MR, cerebral palsy) Additional Medical History: Profound MR - Alcohol/Substance Use Hx Alcohol Use: No - Smoking History Smoking history: Never smoked Aproximately how many cigarettes per day: 0 - Social History Usual Living Arrangement: Group Home ADL: Support Services Home Medications - Allergies Allergies/Adverse Reactions: Allergies Allergy/AdvReac Type Severity Reaction Status Date / Time No Known Allergies Allergy Verified 02/21/17 08:45 - Home Medications Home Medications: Ambulatory Orders Bisacodyl [Biscolax] 10 mg RC DAILY PRN 02/21/17 Calcium 500Mg/Vit-D 200 Units [Os-Hitesh 500+D -] 1 combo PO BID 02/21/17 Carboxymethylcellulose Sodium [Refresh Liquigel] 15 ml OP QID 02/21/17 Cetirizine HCl [24Hour Allergy] 10 mg PO DAILY 02/21/17 Chlorhexidine Gluconate 30 ml MM BID 02/21/17 Cholecalciferol (Vitamin D3) [Vitamin D3 Oral Solution -] 400 unit PO BID Diazepam [Valium] 15 mg PO BID 02/21/17 Ranitidine [Zantac -] 150 mg PO BID 02/21/17 Sennosides [Senna] 2 tab PO DAILY 02/21/17 Family Disease History - Family Disease History Family History: Unable to Obtain Review of Systems Unable to obtain ROS, reason: unresponsive Physical Exam Vital Signs: Vital Signs Temperature 99 F 02/23/17 20:02 Pulse Rate 99 H 02/23/17 20:02 Respiratory Rate 20 02/23/17 20:02 Blood Pressure 105/69 02/23/17 20:02 O2 Sat by Pulse Oximetry (%) 96 02/23/17 09:00 Home Medication List Medication Instructions Recorded Confirmed Type Bisacodyl [Biscolax] 10 mg RC DAILY PRN 02/21/17 02/21/17 History Calcium 500Mg/Vit-D 200 Units 1 combo PO BID 02/21/17 02/21/17 History [Os-Hitesh 500+D -] Carboxymethylcellulose Sodium 15 ml OP QID 02/21/17 02/21/17 History [Refresh Liquigel] Cetirizine HCl [24Hour Allergy] 10 mg PO DAILY 02/21/17 02/21/17 History Chlorhexidine Gluconate 30 ml MM BID 02/21/17 02/21/17 History Cholecalciferol (Vitamin D3) 400 unit PO BID 02/21/17 02/21/17 History [Vitamin D3 Oral Solution -] Diazepam [Valium] 15 mg PO BID 02/21/17 02/21/17 History Ranitidine [Zantac -] 150 mg PO BID 02/21/17 02/21/17 History Sennosides [Senna] 2 tab PO DAILY 02/21/17 02/21/17 History Active Medications Generic Name Dose Route Start Last Admin Trade Name Freq PRN Reason Stop Dose Admin Bisacodyl 10 mg 02/23/17 17:37 Dulcolax Suppository - RC DAILY PRN CONSTIPATION Enoxaparin Sodium 40 mg 02/24/17 10:00 Lovenox - SQ DAILY DARWIN Potassium Chloride 10 meq/ 1,005 mls @ 75 mls/hr 02/24/17 02:52 Dextrose/Sodium Chloride IVPB Q13H DARWIN Piperacillin Sod/Tazobactam Sod 50 mls @ 100 mls/hr 02/24/17 02:00 Zosyn 3.375gm Ivpb (Pre-Docked) IVPB Q8H-IV DARWIN Protocol Levetiracetam 500 mg 02/23/17 22:00 02/23/17 21:30 Keppra Injection - IVPB 500 mg BID DARWIN Administration Lorazepam 0.5 mg 02/23/17 21:00 02/23/17 21:21 Ativan Injection - IVPUSH Not Given Q6H-IV DARWIN Ondansetron HCl 4 mg 02/23/17 17:37 Zofran Injection IVPB Q6H PRN NAUSEA Constitutional: Yes: No Distress Eyes: Yes: PERRL HENT: Yes: Normocephalic Cardiovascular: Yes: Regular Rate and Rhythm, S1, S2 Respiratory: Yes: Cough, On Nasal O2, Rhonchi Gastrointestinal: Yes: Soft, Hypoactive Bowel Sounds Renal/: Yes: WNL Musculoskeletal: Yes: Joint Stiffness Extremities: Yes: Deformity Edema: No Integumentary: Yes: WNL Neurological: Yes: Unresponsive Labs: CBC WBC 7.8 K/mm3 (4.0-10.0) 02/23/17 23:00 RBC 3.76 M/mm3 (3.60-5.2) 02/23/17 23:00 Hgb 10.8 GM/dL (10.7-15.3) 02/23/17 23:00 Hct 33.0 % (32.4-45.2) 02/23/17 23:00 MCV 87.7 fl (80-96) 02/23/17 23:00 MCHC 32.7 g/dl (32.0-36.0) 02/23/17 23:00 RDW 18.3 % (11.6-15.6) H 02/23/17 23:00 Plt Count 113 K/MM3 (134-434) L 02/23/17 23:00 MPV 8.8 fl (7.5-11.1) 02/23/17 23:00 Neutrophils % 77.9 % (42.8-82.8) 02/23/17 23:00 Lymphocytes % 11.9 % (8-40) D 02/23/17 23:00 Monocytes % 9.2 % (3.8-10.2) 02/23/17 23:00 Eosinophils % 0.7 % (0-4.5) D 02/23/17 23:00 Basophils % 0.3 % (0-2.0) 02/23/17 23:00 Band Neutrophils 0.0 % (0-10) 02/22/17 06:00 Differential Comment Manual diff done 02/22/17 06:00 Platelet Estimate Adequate (NORMAL) 02/22/17 06:00 CMP Sodium 140 mmol/L (136-145) 02/23/17 07:15 Potassium 3.3 mmol/L (3.5-5.1) L 02/23/17 07:15 Chloride 105 mmol/L (98-107) 02/23/17 07:15 Carbon Dioxide 25 mmol/L (21-32) 02/23/17 07:15 Anion Gap 10 (8-16) 02/23/17 07:15 BUN 16 mg/dL (7-18) D 02/23/17 07:15 Creatinine 0.5 mg/dL (0.55-1.02) L 02/23/17 07:15 Creat Clearance w eGFR > 60 (>60) 02/23/17 07:15 POC Glucometer 108 UNITS (()) 02/22/17 17:29 Random Glucose 90 mg/dL (74-106) D 02/23/17 07:15 Lactic Acid 1.1 mmol/L (0.4-2.0) 02/21/17 11:44 Calcium 8.0 mg/dL (8.5-10.1) L 02/23/17 07:15 Magnesium 1.9 mg/dL (1.8-2.4) 02/22/17 06:00 Total Bilirubin 0.5 mg/dL (0.2-1.0) D 02/23/17 07:15 AST 98 U/L (15-37) H D 02/23/17 07:15 ALT 128 U/L (12-78) H D 02/23/17 07:15 Alkaline Phosphatase 103 U/L (45-117) D 02/23/17 07:15 Creatine Kinase 196 IU/L (26-192) H 02/21/17 08:25 CK-MB (CK-2) 6.729 ng/ml (0.5-3.6) H 02/21/17 08:25 Troponin I < 0.02 ng/ml (0.00-0.05) 02/21/17 08:25 Total Protein 5.4 g/dl (6.4-8.2) L 02/23/17 07:15 Albumin 2.5 g/dl (3.4-5.0) L 02/23/17 07:15 Hepatic Panel Total Bilirubin 0.5 mg/dL (0.2-1.0) D 02/23/17 07:15 AST 98 U/L (15-37) H D 02/23/17 07:15 ALT 128 U/L (12-78) H D 02/23/17 07:15 Alkaline Phosphatase 103 U/L (45-117) D 02/23/17 07:15 Albumin 2.5 g/dl (3.4-5.0) L 02/23/17 07:15 Imaging - Results Chest X-ray: Pending X-ray: Pending (abdominal xray for NGTube placement ordered) EKG: Pending Problem List - Problems (1) Seizures Code(s): R56.9 - UNSPECIFIED CONVULSIONS (2) Altered mental status Code(s): R41.82 - ALTERED MENTAL STATUS, UNSPECIFIED Qualifiers: Altered mental status type: unspecified Qualified Code(s): R41.82 - Altered mental status, unspecified (3) Fever Code(s): R50.9 - FEVER, UNSPECIFIED (4) Hypotension Code(s): I95.9 - HYPOTENSION, UNSPECIFIED Assessment/Plan This is a 51[place] resident with a past medical history of mental retardation , cerebral palsy with spastic quadriplegia, and seizures admitted with new onset seizure activity with course complicated by fever and hypotension now being transferred to the ICU for further management of shock presumably septic in the setting of hospital acquired PNA v. UTI v. bacteremia v. abdominal source. -ID following, continue Vanc/Zo -Gutierrez-culture -Trend lactate -IVFs as needed for goal MAP > 65 -CXR STAT -Abd XRay -Continue NGT to low intermittent suction -Aspiration precautions -NPO for now -Continue AEDs - Lovenox for DVT ppx FULL CODE MAC [place] CC Time: 35 minutes
[2017-02-23 23:13] LABS: BASOPHIL 0.3 % (0-2.0); EOSINOPHIL 0.7 % (0-4.5); MCH 28.7 pg (25.7-33.7); MCHC 32.7 g/dl (32.0-36.0); MEAN CELL VOLUME 87.7 fl (80-96); MEAN PLT VOLUME 8.8 fl (7.5-11.1); NEUTROPHILS 77.9 % (42.8-82.8); PLATELET COUNT 113 K/MM3 (134-434); RDW 18.3 % (11.6-15.6); WHITE BLOOD COUNT 7.8 K/mm3 (4.0-10.0)
[2017-02-23 23:29] LABS: INR 1.14 (0.82-1.09); PROTHROMBIN TIME (PATIENT) 12.6 SEC (9.98-11.88)
[2017-02-23 23:31] LABS: ACTIVATED PTT 35.3 SECONDS (26.9-34.4)
[2017-02-23 23:38] LABS: ALBUMIN 2.5 g/dl (3.4-5.0); ANION GAP 9 (8-16); BILIRUBIN,DIRECT 0.1 mg/dL (0.0-0.2); BILIRUBIN,TOTAL 0.5 mg/dL (0.2-1.0); CALCIUM 7.8 mg/dL (8.5-10.1); CO2 25 mmol/L (21-32); CREATININE 0.4 mg/dL (0.55-1.02); GLUCOSE,RANDOM 87 mg/dL (74-106); SGOT/AST 82 U/L (15-37); SGPT/ALT 117 U/L (12-78); TOT PROT 5.5 g/dl (6.4-8.2); TOT PROT 5.6 g/dl (6.4-8.2)
[2017-02-23 23:39] LABS: ALK PHOS 103 U/L (45-117)
[2017-02-24] MEDS ORDERED: ACETAMINOPHEN 650 MG SUPP.RECT PR SCH
[2017-02-24] MEDS: KCL 10 MEQ IVPB 100 ML IVPB SCH ×3 (00:45→02:26)
[2017-02-24] MEDS: PIPERACILLIN/TAZOB 3.375 GM 50 ML IVPB SCH ×3 (01:14→18:51)
[2017-02-24] MEDS ORDERED: POTASSIUM CHLORIDE 10 MEQ in DEXTROSE 5%-NORMAL SALINE 1,000 ML IVPB SCH (02:52)
[2017-02-24] MEDS: LORAZEPAM CARPU-JECT 2 MG/ML DISP.SYRIN IVPUSH SCH (03:00)
[2017-02-24 06:27] LABS: BASOPHIL 0.2 % (0-2.0); EOSINOPHIL 0.8 % (0-4.5); MCH 29.1 pg (25.7-33.7); MCHC 32.8 g/dl (32.0-36.0); MEAN CELL VOLUME 88.7 fl (80-96); MEAN PLT VOLUME 9.4 fl (7.5-11.1); NEUTROPHILS 79.3 % (42.8-82.8); PLATELET COUNT 117 K/MM3 (134-434); RDW 18.4 % (11.6-15.6); WHITE BLOOD COUNT 7.8 K/mm3 (4.0-10.0)
[2017-02-24 07:00] LABS: ALBUMIN 2.4 g/dl (3.4-5.0); ANION GAP 7 (8-16); CALCIUM 7.5 mg/dL (8.5-10.1); CO2 25 mmol/L (21-32); CREATININE 0.4 mg/dL (0.55-1.02); GLUCOSE,RANDOM 197 mg/dL (74-106); SGOT/AST 66 U/L (15-37); SGPT/ALT 104 U/L (12-78)
[2017-02-24 07:01] LABS: ALK PHOS 94 U/L (45-117); BILIRUBIN,TOTAL 0.4 mg/dL (0.2-1.0); TOT PROT 5.3 g/dl (6.4-8.2)
--- NOTE | 2017-02-24 07:15 | PN ---
Physical Exam: SUBJECTIVE: Patient seen and examined nonverbal, awake, alert, productive cough in bed. Aide at bedside says at baseline, pt does not have a cough. pt was transferred to ICU from med/surg floor due to concern for septic shock as pt was becoming hypotensive. OBJECTIVE: Vital Signs Period Temp Pulse Resp BP Sys/Ascencio Pulse Ox Last 24 Hr 98.6 F-100.3 F 90-116 18-26 85-122/57-78 96-96 GENERAL: The patient is awake in no acute distress. contracted in bed EYES: PERRL, sclera anicteric, conjunctiva clear ENT: oropharynx clear without exudates, moist mucous membranes. LUNGS: rhonchi, scattered crackles at bases. no wheezing, no accessory muscle use. HEART: Regular rhythm, tachycardic, S1, S2 without murmur, rub or gallop. ABDOMEN: Soft, nontender, nondistended, hypoactive bowel sounds, EXTREMITIES: + radial pulses, warm, well-perfused, no edema. all extremities contracted, severe scoliosis of the spine NEUROLOGICAL: pt is nonverbal/noncommunicative, profound MR Laboratory Results - last 24 hr 02/23/17 02/23/17 02/23/17 07:15 07:15 23:00 WBC 9.5 7.8 RBC 3.86 3.76 Hgb 11.4 D 10.8 Hct 34.0 33.0 MCV 88.1 87.7 MCHC 33.6 32.7 RDW 18.3 H 18.3 H Plt Count 122 L 113 L MPV 9.4 8.8 Neutrophils % 84.0 H 77.9 Lymphocytes % 8.9 D 11.9 D Monocytes % 6.7 9.2 Eosinophils % 0.1 D 0.7 D Basophils % 0.3 D 0.3 INR PTT (Actin FS) Sodium 140 Potassium 3.3 L Chloride 105 Carbon Dioxide 25 Anion Gap 10 BUN 16 D Creatinine 0.5 L Creat Clearance w eGFR > 60 Random Glucose 90 D Lactic Acid Calcium 8.0 L Total Bilirubin 0.5 D Direct Bilirubin AST 98 H D ALT 128 H D Alkaline Phosphatase 103 D Total Protein 5.4 L Albumin 2.5 L 02/23/17 02/23/17 02/23/17 23:00 23:00 23:00 WBC RBC Hgb Hct MCV MCHC RDW Plt Count MPV Neutrophils % Lymphocytes % Monocytes % Eosinophils % Basophils % INR 1.14 PTT (Actin FS) 35.3 H Sodium 141 Potassium 3.1 L Chloride 107 Carbon Dioxide 25 Anion Gap 9 BUN 13 Creatinine 0.4 L Creat Clearance w eGFR > 60 Random Glucose 87 Lactic Acid 0.7 Calcium 7.8 L Total Bilirubin 0.5 Direct Bilirubin AST 82 H ALT 117 H Alkaline Phosphatase 103 Total Protein 5.6 L Albumin 2.5 L 02/23/17 02/24/17 02/24/17 23:00 05:15 05:15 WBC 7.8 RBC 3.70 Hgb 10.8 Hct 32.8 MCV 88.7 MCHC 32.8 RDW 18.4 H Plt Count 117 L MPV 9.4 Neutrophils % 79.3 Lymphocytes % 11.6 Monocytes % 8.1 Eosinophils % 0.8 Basophils % 0.2 INR PTT (Actin FS) Sodium 141 Potassium 4.1 D Chloride 109 H Carbon Dioxide 25 Anion Gap 7 L BUN 11 Creatinine 0.4 L Creat Clearance w eGFR > 60 Random Glucose 197 H D Lactic Acid Calcium 7.5 L Total Bilirubin 0.5 0.4 Direct Bilirubin 0.1 AST 82 H 66 H ALT 118 H 104 H Alkaline Phosphatase 104 94 Total Protein 5.5 L 5.3 L Albumin 2.5 L 2.4 L Active Medications Generic Name Dose Route Start Last Admin Trade Name Freq PRN Reason Stop Dose Admin Bisacodyl 10 mg 02/23/17 17:37 Dulcolax Suppository - RC DAILY PRN CONSTIPATION Enoxaparin Sodium 40 mg 02/24/17 10:00 Lovenox - SQ DAILY BRANDEE Piperacillin Sod/Tazobactam Sod 50 mls @ 100 mls/hr 02/24/17 02:00 02/24/17 01: 14 Zosyn 3.375gm Ivpb (Pre-Docked) IVPB 100 mls/hr Q8H-IV BRANDEE Administration Protocol Levetiracetam 500 mg 02/23/17 22:00 02/23/17 21:30 Keppra Injection - IVPB 500 mg BID BRANDEE Administration Lorazepam 0.5 mg 02/23/17 21:00 02/24/17 03:00 Ativan Injection - IVPUSH Not Given Q6H-IV BRANDEE Ondansetron HCl 4 mg 02/23/17 17:37 Zofran Injection IVPB Q6H PRN NAUSEA ASSESSMENT/PLAN: 51 yr old woman with severe static encephalopathy, chronic spastic tetraparesis , and seizure disorder from [place] admitted for seizures found to have fever , hypoxia, and episode hypotension non-responsive to fluid bolus on med/surg floor transferred for concern of septic shock. Cardiovascular - pt did not require pressure support overnight, BP improved in the unit - tachycardia likely caused by fever Infectious Disease sepsis from UTI or aspiration pna zosyn 3.375gm IVPB q8hr gutierrez-cxed last night, pending results Renal florence in place for I&O monitoring Pulmonary saturing well on nasal cannula GI underwent disimpaction yesterday evening, has a hx of chronic constipation bowel regimen with dulcolax suppository zofran 4mg prn IVPB q6hr transaminitis- hepatitis panel pending pending swallow evaluation Neurological seizure d/o [id number] IVPB BID brandee ativan q6h, changed from brandee to prn as pt has not had seizure activity overnight and appears to be lethargic currently functional quadraplegia consult: Dr. bo DVT: lovenox 40sq diet; npo pending speech and swallow eval, at baseline pt takes po without difficulty a [place] Dispo: patient's condition has improved and she can be monitored further on Med/ surg floor Visit type - Emergency Visit Emergency Visit: No - New Patient This patient is new to me today: Yes Date on this admission: 02/24/17 - Critical Care Critical Care patient: Yes Total Critical Care Time (in minutes): 36 Critical Care Statement: The care of this patient involved high complexity decision making to prevent further life threatening deterioration of the patient 's condition and/or to evalute & treat vital organ system(s) failure or risk of failure.
[2017-02-24] MEDS ORDERED: LORAZEPAM CARPU-JECT 2 MG/ML DISP.SYRIN IVPUSH PRN (07:56)
[2017-02-24 09:18] LABS: URINE APPEARANCE SLCLOUDY; URINE BILIRUBIN NEGATIVE (NEGATIVE); URINE COLOR DKYELLOW; URINE GLUCOSE (UA) NEGATIVE (NEGATIVE); URINE KETONE 1+ (NEGATIVE); URINE NITRITE NEGATIVE (NEGATIVE); URINE PROTEIN NEGATIVE (NEGATIVE); URINE UROBILINOGEN NEGATIVE E.U./dl (0.2-1.0)
--- NOTE | 2017-02-24 09:19 | PN ---
Physical Exam: SUBJECTIVE: Patient seen and examined in the ICU. Non verbal at baseline. More awake, alert, eyes open. OBJECTIVE: Transferred to the ICU overnight Minimal output from NGT - will d/c Chest xray read with no evidence of pulmonary consol. or vascular congestion: on my read there is congestion of the right lung base +crackles of right lung base auscultated breathing rate in the 30s Vital Signs Period Temp Pulse Resp BP Sys/Ascencio Pulse Ox Last 24 Hr 98.6 F-100.3 F 90-116 18-26 85-122/57-78 96-99 GENERAL: lethargic, eyes open NECK: Trachea midline, full range of motion, supple. LUNGS: Breath sounds diminished, +crackles at right lung base HEART: sinus rhythm 93 on library monitor ABDOMEN: less distended abdomen, hypoactive bowel sounds EXTREMITIES: no edema. NEUROLOGICAL: Lethargic, has profound MR, seizure precautions Laboratory Results - last 24 hr 02/23/17 02/23/17 02/23/17 23:00 23:00 23:00 WBC 7.8 RBC 3.76 Hgb 10.8 Hct 33.0 MCV 87.7 MCHC 32.7 RDW 18.3 H Plt Count 113 L MPV 8.8 Neutrophils % 77.9 Lymphocytes % 11.9 D Monocytes % 9.2 Eosinophils % 0.7 D Basophils % 0.3 INR 1.14 PTT (Actin FS) 35.3 H Sodium 141 Potassium 3.1 L Chloride 107 Carbon Dioxide 25 Anion Gap 9 BUN 13 Creatinine 0.4 L Creat Clearance w eGFR > 60 Random Glucose 87 Lactic Acid Calcium 7.8 L Total Bilirubin 0.5 Direct Bilirubin AST 82 H ALT 117 H Alkaline Phosphatase 103 Total Protein 5.6 L Albumin 2.5 L Random Vancomycin 02/23/17 02/23/17 02/24/17 23:00 23:00 05:15 WBC 7.8 RBC 3.70 Hgb 10.8 Hct 32.8 MCV 88.7 MCHC 32.8 RDW 18.4 H Plt Count 117 L MPV 9.4 Neutrophils % 79.3 Lymphocytes % 11.6 Monocytes % 8.1 Eosinophils % 0.8 Basophils % 0.2 INR PTT (Actin FS) Sodium Potassium Chloride Carbon Dioxide Anion Gap BUN Creatinine Creat Clearance w eGFR Random Glucose Lactic Acid 0.7 Calcium Total Bilirubin 0.5 Direct Bilirubin 0.1 AST 82 H ALT 118 H Alkaline Phosphatase 104 Total Protein 5.5 L Albumin 2.5 L Random Vancomycin 02/24/17 02/24/17 05:15 05:15 WBC RBC Hgb Hct MCV MCHC RDW Plt Count MPV Neutrophils % Lymphocytes % Monocytes % Eosinophils % Basophils % INR PTT (Actin FS) Sodium 141 Potassium 4.1 D Chloride 109 H Carbon Dioxide 25 Anion Gap 7 L BUN 11 Creatinine 0.4 L Creat Clearance w eGFR > 60 Random Glucose 197 H D Lactic Acid Calcium 7.5 L Total Bilirubin 0.4 Direct Bilirubin AST 66 H ALT 104 H Alkaline Phosphatase 94 Total Protein 5.3 L Albumin 2.4 L Random Vancomycin 9.562 Active Medications Generic Name Dose Route Start Last Admin Trade Name Freq PRN Reason Stop Dose Admin Bisacodyl 10 mg 02/23/17 17:37 Dulcolax Suppository - RC DAILY PRN CONSTIPATION Enoxaparin Sodium 40 mg 02/24/17 10:00 Lovenox - SQ DAILY D[facility]WIN Piperacillin Sod/Tazobactam Sod 50 mls @ 100 mls/hr 02/24/17 02:00 02/24/17 01: 14 Zosyn 3.375gm Ivpb (Pre-Docked) IVPB 100 mls/hr Q8H-IV [facility]AR[facility] Administration Protocol Levetiracetam 500 mg 02/23/17 22:00 02/23/17 21:30 Keppra Injection - IVPB 500 mg BID [facility]WIN Administration Lorazepam 0.5 mg 02/24/17 07:56 Ativan Injection - IVPUSH Q6H-IV PRN MUSCLE SPASMS Ondansetron HCl 4 mg 02/23/17 17:37 Zofran Injection IVPB Q6H PRN NAUSEA ASSESSMENT/PLAN: Patient is a 51 year old female who resides at [facility]. 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 She was reported to have had multiple seizures in the [facility] as well as en route to the hospital, where she had 2 witnessed seizures which appeared to be tonic clonic seizures as per ED notes. Chest xray 02/23/2017: no evidence of pulmonary consol. or vascular congestion: on my read there is congestion of the right lung base, clinical finding + crackles ID: Sepsis - acute Assessement/Plan: Patient now with low grade fevers, heart rate 90s, more wake , blood pressure stabilizing - not on pressors Lactic acidosis on admission, now resolved initial blood culture with staph coag, repeated blood cultures pending ID consulted, started on Zosyn (day 2), was given one dose of Vancomycin 02/22 Continue IVFs Neurology: Seizures - acute on chronic Assessment/Plan: Patients presents to ER with multiple witnessed seizure activity On Keppra 500mg q12 IV and Ativan 0.5mg q6 Last reported seizure prior to admission was over 6 months ago GI: Abdominal distention/rule out SBO Assessment/Plan: Abdomen XRay shows fecal retention, no acute pathology Abdomen less distended today, hypoactive bowels NGT to be removed, minimal drainage overnight of 150cc Elevated AST/ALT Assessment/Plan: AST, ALT trending down Continue to trend Hepatitis panel ordered GI following Endocrine: Hypoglycemia - acute vs. chronic Assessment/Plan: BGMs q4 while NPO F.E.N. Fluids: D5 NS @ 75cc/hr Electrolytes: monitor BMP Nutrition: remove NGT, swallow evaluation Prophylaxis: GI: Reglan, Protonix BID DVT: Lovenox 40mg Disposition: Full Code. Visit type - Emergency Visit Emergency Visit: Yes ED Registration Date: 02/21/17 Care time: The patient presented to the Emergency Department on the above date and was hospitalized for further evaluation of their emergent condition. - New Patient This patient is new to me today: No - Critical Care Critical Care patient: Yes Total Critical Care Time (in minutes): 45 Critical Care Statement: The care of this patient involved high complexity decision making to prevent further life threatening deterioration of the patient 's condition and/or to evalute & treat vital organ system(s) failure or risk of failure.
[2017-02-24 09:36] LABS: URINE BLOOD 3+ (NEGATIVE); URINE LEUK ESTERASE 1+ (NEGATIVE)
[2017-02-24 09:41] LABS: URINE MUCUS RARE; URINE RBC 80 /hpf (0-3); URINE WBC 12 /hpf (3-5)
[2017-02-24] MEDS: levETIRAcetam 500 MG/5 ML INJECTION VIAL IVPB SCH ×2 (10:11→22:51)
[2017-02-24] MEDS: ENOXAPARIN NA (PORCINE) 40 MG/0.4 ML DISP.SYRIN SQ SCH (10:14)
--- NOTE | 2017-02-24 10:36 | CONSULT ---
Admitting History and Physical - Primary Care Physician PCP: Justyn Morse - Admission History of Present Illness: Per emr : "Patient is a 51 year old female who resides at [facility]. 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, Other (MR, cerebral palsy) - Smoking History Smoking history: Never smoked Aproximately how many cigarettes per day: 0 - Alcohol/Substance Use Hx Alcohol Use: No - Social History ADL: Support Services History - Admission Reason For Visit: STATUS EPILEPTICUS - Diagnostics X-ray: Report Reviewed - General Mental Status: Awake and Alert Ability to Follow Directions: Poor Head/Neck Control: Needs Assist Speech Evaluation - Communication Communication: Yes: Non-Communicable Oral Expression Ability: Yes: Non-Verbal, Non-Vocal - Swallow Evaluation/Bedside Assessment Current Nutritional Intake: NPO Oral Secretions: Yes: Drooling, Pooling Dentition: Yes: Adequate Lingual Movement: Symmetric Recommendations - Speech Evaluation, Impression/Plan Impression: Pt with profound cognitive deficits secondary to CP/MR, [facility] resident ,onset of seizures, resulting in admission. Pt is awake, intermittently establishes eye contact. Opens mouth responsively to spoon/cup. Tongue thrust, with tongue remaining fully extended outside of her mouth while swallowing, adversely affecting posterior transfer of the bolus and laryngeal elevation.Bite reflex when fed with spoon. Seems to transfer honey thick liquid better, due to viscosity and assistance of gravity.Pt cups tongue, allowing posterior transfer more easily with thick liquid than puree at this time. No audible upper airway wetness or cough but certainly an aspiration risk. Possibly audible wetness in naso pharynx with suspected nasopharyngeal regurgitation. Call placed to path at [place] and discussed feeding strategies. Pt was on puree/honey thick,ensure pudding,yogurt,prune juice. Likely limited change as compared to baseline swallowing status. - Dysphagia Impressions/Plan Swallowing Skills: Impaired Dysphagia Impressions: Moderate Impairment, Ongoing Evaluation *Silent aspiration: cannot be R/O at bedside Dysphagia Treatment Plan: Small Bites, Clear Pocket Food, Trial Feedings, Safe Rate, 1/2 tsp. at a time, Other (El;evate to 60 degrees.) Recommendations: Other (Monitor pulmonary status.) - Recommendations Diet Consistency: Dysphagia Pureed (mixed with liquid (gravy or a little ensure? ) to increase posterior flow of bolus.) Medication Administration: Crushed with applesauce (mixed with liquid to increase posterior flow of bolus.May be easiest via medicine cup, SMALL sip, wait for oral transfer, swallow.) Liquids: Honey Thick (May be easiest via medicine cup, SMALL sip, wait for oral transfer, swallow.)
--- NOTE | 2017-02-24 11:44 | PN ---
Teaching Attending Note Name of Resident: Cassidy Simon ATTENDING PHYSICIAN STATEMENT I saw and evaluated the patient. I reviewed the resident's note and discussed the case with the resident. I agree with the resident's findings and plan as documented. SUBJECTIVE: Pt seen and examined in the ICU. Blood pressures improving. Fever curve downtrending. OBJECTIVE: Last Vital Signs Temp Pulse Resp BP Pulse Ox 98.9 F 106 H 26 H 120/80 99 02/24/17 11:05 02/24/17 11:05 02/24/17 11:05 02/24/17 11:05 02/24/17 07:50 Intake & Output 02/21/17 02/22/17 02/23/17 02/24/17 23:59 23:59 23:59 23:59 Intake Total 687 485 3206 1250 Output Total 150 950 Balance 961 136 4736 300 Weight 88 lb 4 oz Gen: nonverbal, mildly tachypneic at rest Heart: tachycardic, regular Lung: bilateral rhonchi Abd: soft, nontender Ext: no edema CBC, BMP 02/24/17 05:15 02/24/17 05:15 Active Medications Bisacodyl (Dulcolax Suppository -) 10 mg RC DAILY PRN PRN Reason: CONSTIPATION Enoxaparin Sodium (Lovenox -) 40 mg SQ DAILY [facility] Last Admin: 02/24/17 10:14 Dose: 40 mg Piperacillin Sod/Tazobactam Sod (Zosyn 3.375gm Ivpb (Pre-Docked)) 50 mls @ 100 mls/hr IVPB Q8H-IV DARWIN PRN Reason: Protocol Last Admin: 02/24/17 10:14 Dose: 100 mls/hr Levetiracetam (Keppra Injection -) 500 mg IVPB BID [facility] Last Admin: 02/24/17 10:11 Dose: 500 mg Lorazepam (Ativan Injection -) 0.5 mg IVPUSH Q6H-IV PRN PRN Reason: MUSCLE SPASMS Ondansetron HCl (Zofran Injection) 4 mg IVPB Q6H PRN PRN Reason: NAUSEA ASSESSMENT AND PLAN: New Onset Seizure UTI r/o Pneumonia Sepsis Elevated LFTs Mental Retardation Cerebral Palsy Functional Quadriplegia - continue antibiotics - f/u cultures - check CXR - aspiration precautions - IVF - antiepileptics - O2 to keep Spo2 >90% - DVT prophylaxis - can monitor on floor critical care time spent in reviewing chart, evaluating patient and formulating plan 35 min
--- NOTE | 2017-02-24 17:12 | PN ---
Progress Note, Physician History of Present Illness: events noted from last night patient became hypotensive transferred to icu currently patient is stable more awake - Current Medication List Current Medications: Active Medications Bisacodyl (Dulcolax Suppository -) 10 mg RC DAILY PRN PRN Reason: CONSTIPATION Enoxaparin Sodium (Lovenox -) 40 mg SQ DAILY [facility] Last Admin: 02/24/17 10:14 Dose: 40 mg Piperacillin Sod/Tazobactam Sod (Zosyn 3.375gm Ivpb (Pre-Docked)) 50 mls @ 100 mls/hr IVPB Q8H-IV DARWIN PRN Reason: Protocol Last Admin: 02/24/17 10:14 Dose: 100 mls/hr Levetiracetam (Keppra Injection -) 500 mg IVPB BID [facility] Last Admin: 02/24/17 10:11 Dose: 500 mg Lorazepam (Ativan Injection -) 0.5 mg IVPUSH Q6H-IV PRN PRN Reason: MUSCLE SPASMS Ondansetron HCl (Zofran Injection) 4 mg IVPB Q6H PRN PRN Reason: NAUSEA - Objective Vital Signs: Vital Signs Temperature 98.9 F 02/24/17 10:00 Pulse Rate 88 02/24/17 13:17 Respiratory Rate 26 H 02/24/17 12:00 Blood Pressure 136/97 02/24/17 13:17 O2 Sat by Pulse Oximetry (%) 99 02/24/17 07:50 Constitutional: Yes: No Distress, Calm Cardiovascular: Yes: Regular Rate and Rhythm Respiratory: Yes: Regular, CTA Bilaterally Gastrointestinal: Yes: Normal Bowel Sounds, Soft Musculoskeletal: Yes: Other Extremities: Yes: Other Neurological: Yes: Alert, Other Psychiatric: Yes: Alert, Other Labs: CBC, BMP 02/24/17 05:15 02/24/17 05:15 INR, PTT INR 1.14 (0.82-1.09) 02/23/17 23:00 - ....Imaging Chest X-ray: Report Reviewed, Image Reviewed Assessment/Plan Seizures Abdominal distention Sepsis Hypoglycemia lactic acidosis ng tube removed plan iv fluids cx result noted continue zosyn monitor bp cc time 40 min
--- NOTE | 2017-02-24 18:16 | PN ---
GI Progress Note Subjective: No acute events NGT removed. Minimal output per nurse - Objective Vital Signs: Vital Signs Temperature 98.9 F 02/24/17 10:00 Pulse Rate 79 02/24/17 17:59 Respiratory Rate 26 H 02/24/17 12:00 Blood Pressure 136/97 02/24/17 13:17 O2 Sat by Pulse Oximetry (%) 100 02/24/17 17:59 Constitutional: Calm Eyes: No: Sclera Icterus Cardiovascular: Yes: Regular Rate and Rhythm Respiratory: Yes: Diminished (at bases w/ poor insp effort) Gastrointestinal Inspection: Yes: Distention (protuberant. severe spinal scoliosis making examination of the right abdomen and pelvis limited) ...Auscultate: Yes: Normoactive Bowel Sounds Extremities: Yes: Other (contractures) Edema: No Neurological: Yes: Other (awake) Labs: CBC, BMP 02/24/17 05:15 02/24/17 05:15 INR, PTT INR 1.14 (0.82-1.09) 02/23/17 23:00 Problem List - Problems (1) Elevated liver enzymes Assessment/Plan: Continuing to trend down Hepatitis serologies pending Code(s): R74.8 - ABNORMAL LEVELS OF OTHER SERUM ENZYMES (2) Constipation Assessment/Plan: MiraLAX 17g daily. If cannot take miralax the OK with dulcolax suppositories 1 IL daily Mineral oil enema 1 IL every other day as outpatient Code(s): K59.00 - CONSTIPATION, UNSPECIFIED Qualifiers: Constipation type: unspecified constipation type Qualified Code(s): K59.00 - Constipation, unspecified
[2017-02-25 00:06] LABS: HEP B SURFACE AB Reactive (.)
[2017-02-25] MEDS: PIPERACILLIN/TAZOB 3.375 GM 50 ML IVPB SCH ×4 (02:40→17:17)
[2017-02-25 06:36] LABS: BASOPHIL 0.3 % (0-2.0); EOSINOPHIL 1.5 % (0-4.5); MCH 29.4 pg (25.7-33.7); MCHC 33.6 g/dl (32.0-36.0); MEAN CELL VOLUME 87.6 fl (80-96); MEAN PLT VOLUME 8.5 fl (7.5-11.1); NEUTROPHILS 78.5 % (42.8-82.8); PLATELET COUNT 136 K/MM3 (134-434); RDW 17.7 % (11.6-15.6); WHITE BLOOD COUNT 7.3 K/mm3 (4.0-10.0)
[2017-02-25 07:13] LABS: ALBUMIN 2.4 g/dl (3.4-5.0); ANION GAP 6 (8-16); BILIRUBIN,TOTAL 0.4 mg/dL (0.2-1.0); CALCIUM 7.9 mg/dL (8.5-10.1); CO2 30 mmol/L (21-32); COCKROFT - GAULT 141.695; CREATININE 0.3 mg/dL (0.55-1.02); GLUCOSE,RANDOM 79 mg/dL (74-106); SGOT/AST 38 U/L (15-37); SGPT/ALT 78 U/L (12-78); TOT PROT 5.3 g/dl (6.4-8.2)
[2017-02-25 07:14] LABS: ALK PHOS 97 U/L (45-117)
[2017-02-25] MEDS: ENOXAPARIN NA (PORCINE) 40 MG/0.4 ML DISP.SYRIN SQ SCH ×2 (09:00→12:08)
[2017-02-25] MEDS: levETIRAcetam 500 MG/5 ML INJECTION VIAL IVPB SCH ×3 (09:00→22:10)
[2017-02-25] MEDS ORDERED: ONDANSETRON 4 MG/2 ML VIAL IVPB PRN (09:05)
[2017-02-25] MEDS ORDERED: LORAZEPAM CARPU-JECT 2 MG/ML DISP.SYRIN IVPUSH PRN (09:05)
--- NOTE | 2017-02-25 11:03 | PN ---
Physical Exam: SUBJECTIVE: Patient seen and examined. laying in bed, in no acute distress. episode of choking when being fed this morning on pureed diet. OBJECTIVE: Vital Signs Period Temp Pulse Resp BP Sys/Ascencio Pulse Ox Last 24 Hr 97.6 F-100.7 F 78-112 18-28 97-136/62-97 100-100 GENERAL: The patient is awake in no acute distress. contracted in bed EYES: PERRL, sclera anicteric, conjunctiva clear ENT: oropharynx clear without exudates, moist mucous membranes. LUNGS: rhonchi, scattered crackles at bases. no wheezing, no accessory muscle use. HEART: Regular rhythm, tachycardic, S1, S2 without murmur, rub or gallop. ABDOMEN: Soft, nontender, nondistended, hypoactive bowel sounds, EXTREMITIES: + radial pulses, warm, well-perfused, no edema. all extremities contracted, severe scoliosis of the spine NEUROLOGICAL: pt is nonverbal/noncommunicative, profound MR Laboratory Results - last 24 hr 02/23/17 02/24/17 02/24/17 07:20 07:00 11:42 WBC RBC Hgb Hct MCV MCHC RDW Plt Count MPV Neutrophils % Lymphocytes % Monocytes % Eosinophils % Basophils % Sodium Potassium Chloride Carbon Dioxide Anion Gap BUN Creatinine Creat Clearance w eGFR POC Glucometer 132.75436 Random Glucose Calcium Total Bilirubin AST ALT Alkaline Phosphatase Total Protein Albumin Ur Specific Maribel >= 1.030 H Hep A IgM Ab Confirm Negative Hepatitis A Ab Total Positive H Hep Bs Antigen Negative Hep Bs Antibody Reactive Hep B Core Total Ab Positive H 02/25/17 02/25/17 05:45 05:45 WBC 7.3 RBC 3.52 L Hgb 10.4 L Hct 30.9 L MCV 87.6 MCHC 33.6 RDW 17.7 H Plt Count 136 MPV 8.5 Neutrophils % 78.5 Lymphocytes % 11.3 Monocytes % 8.4 Eosinophils % 1.5 D Basophils % 0.3 Sodium 142 Potassium 3.6 Chloride 106 Carbon Dioxide 30 Anion Gap 6 L BUN 8 D Creatinine 0.3 L D Creat Clearance w eGFR > 60 POC Glucometer Random Glucose 79 D Calcium 7.9 L Total Bilirubin 0.4 AST 38 H D ALT 78 D Alkaline Phosphatase 97 Total Protein 5.3 L Albumin 2.4 L Ur Specific Maribel Hep A IgM Ab Confirm Hepatitis A Ab Total Hep Bs Antigen Hep Bs Antibody Hep B Core Total Ab Active Medications Generic Name Dose Route Start Last Admin Trade Name Freq PRN Reason Stop Dose Admin Bisacodyl 10 mg 02/25/17 09:05 Dulcolax Suppository - RC DAILY PRN CONSTIPATION Enoxaparin Sodium 40 mg 02/25/17 10:00 Lovenox - SQ DAILY [facility] Famotidine/Sodium Chloride 50 mls @ 100 mls/hr 02/25/17 10:00 Pepcid 20 Mg Premixed Ivpb - IVPB BID [facility] Piperacillin Sod/Tazobactam Sod 50 mls @ 100 mls/hr 02/25/17 10:00 Zosyn 3.375gm Ivpb (Pre-Docked) IVPB Q8H-IV BRAN[facility]E Protocol Levetiracetam 500 mg 02/25/17 10:00 Keppra Injection - IVPB BID [facility]E Lorazepam 0.5 mg 02/25/17 09:05 Ativan Injection - IVPUSH Q6H-IV PRN MUSCLE SPASMS Ondansetron HCl 4 mg 02/25/17 09:05 Zofran Injection IVPB Q6H PRN NAUSEA Polyethylene Glycol 17 gm 02/25/17 10:00 Miralax (For Daily Use) - PO DAILY BRAN[facility]E ASSESSMENT/PLAN: 51 yr old woman with severe static encephalopathy, chronic spastic tetraparesis , and seizure disorder from [place] admitted for seizures found to have fever , hypoxia, and episode hypotension non-responsive to fluid bolus on med/surg floor transferred for concern of septic shock. Cardiovascular - BP normotensive - tachycardia now intermittent Infectious Disease sepsis from UTI or aspiration pna zosyn 3.375gm IVPB q8hr + cleocin gutierrez-cxed: Bld cx NGTD, urine cx pending Renal florence in place for I&O monitoring Pulmonary saturing well on nasal cannula left lower infiltrate - likely aspiration pna GI hx of chronic constipation bowel regimen with dulcolax suppository zofran 4mg prn IVPB q6hr transaminitis- hepatitis panel pending - shows possible Heb B vaccine and Hep A antibody keep npo and on clinemix until pt's cup from [place] is brought in for evaluation by Elida Zapata, recommendations discussed with nursing for proper head position, consistency of food and feeding technique Neurological seizure d/o [id number] IVPB BID brandee ativan q6h prn functional quadraplegia consult: Dr. bo DVT: lovenox 40sq diet; npo pending further evaluation Dispo: patient's condition has improved and she can be monitored further on Med/ surg floor Visit type - Emergency Visit Emergency Visit: No - New Patient This patient is new to me today: No - Critical Care Critical Care patient: Yes Total Critical Care Time (in minutes): 36 Critical Care Statement: The care of this patient involved high complexity decision making to prevent further life threatening deterioration of the patient 's condition and/or to evalute & treat vital organ system(s) failure or risk of failure.
--- NOTE | 2017-02-25 11:15 | PN ---
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 Pt given cereal on a tsp with choking and resp distress. Swallowing reassessed. Seems more passive today, initially with tight lip seal, not accepting po trial. Pt became more accepting of care, opening mouth although more guarded. Protruding tongue with funnel shape, allowing liquid best. Pt accepted several small sips from me with a delayed, overtly functional swallow. Aspiration can not be r/o at bedside. REC: Position symmetrically,to 60 degrees/head flexed with pillow honey thick liquid via medicine cup, 1/2 tsp at a time, wait for swallow reflex. Puree mixed with liquid, either ensure compact or gravy, to thinned out consistency, may be best given via cup Spoke with [facility] Sp Path/cup/yara spoon used. Observe tolerance and for sufficient nutrition/hydration.
[2017-02-25] MEDS: FAMOTIDINE 20 MG/50 ML IVPB 50 ML IVPB SCH ×2 (12:09→22:10)
--- NOTE | 2017-02-25 12:18 | PN ---
Teaching Attending Note Name of Resident: Cassidy Simon ATTENDING PHYSICIAN STATEMENT I saw and evaluated the patient. I reviewed the resident's note and discussed the case with the resident. I agree with the resident's findings and plan as documented. SUBJECTIVE: Pt seen and examined in the ICU. Choking with eating this AM. CXR showing increasing left base consolidation. Low grade fever overnight. OBJECTIVE: Last Vital Signs Temp Pulse Resp BP Pulse Ox 99.8 F H 109 H 18 123/98 100 02/25/17 10:00 02/25/17 12:07 02/25/17 12:07 02/25/17 12:07 02/25/17 07:43 Intake & Output 02/22/17 02/23/17 02/24/17 02/25/17 23:59 23:59 23:59 23:59 Intake Total 850 2075 1875 150 Output Total 150 1550 300 Balance 850 1925 325 -150 Gen: NAD at rest Heart: tachycardic, regular Lung: bilateral rhonchi Abd: soft, nontender Ext: no edema CBC, BMP 02/25/17 05:45 02/25/17 05:45 Active Medications Bisacodyl (Dulcolax Suppository -) 10 mg RC DAILY PRN PRN Reason: CONSTIPATION Enoxaparin Sodium (Lovenox -) 40 mg SQ DAILY [facility] Last Admin: 02/25/17 12:08 Dose: Not Given Famotidine/Sodium Chloride (Pepcid 20 Mg Premixed Ivpb -) 50 mls @ 100 mls/hr IVPB BID [facility] Last Admin: 02/25/17 12:09 Dose: Not Given Piperacillin Sod/Tazobactam Sod (Zosyn 3.375gm Ivpb (Pre-Docked)) 50 mls @ 100 mls/hr IVPB Q8H-IV [facility] PRN Reason: Protocol Last Admin: 02/25/17 12:09 Dose: Not Given Levetiracetam (Keppra Injection -) 500 mg IVPB BID [facility] Last Admin: 02/25/17 12:08 Dose: Not Given Lorazepam (Ativan Injection -) 0.5 mg IVPUSH Q6H-IV PRN PRN Reason: MUSCLE SPASMS Ondansetron HCl (Zofran Injection) 4 mg IVPB Q6H PRN PRN Reason: NAUSEA Polyethylene Glycol (Miralax (For Daily Use) -) 17 gm PO DAILY [facility] ASSESSMENT AND PLAN: New Onset Seizure UTI Pneumonia Sepsis Elevated LFTs Mental Retardation Cerebral Palsy Functional Quadriplegia - continue antibiotics - aspiration precautions - IVF - antiepileptics - O2 to keep Spo2 >90% - DVT prophylaxis - can monitor on floor
--- NOTE | 2017-02-25 14:46 | PN ---
Physical Exam: SUBJECTIVE: Patient seen and examined, aide at the bedside. States patient was restless overnight. OBJECTIVE: Still having low grade fevers Unable to tolerate meals today, started on Clinimax Vital Signs Period Temp Pulse Resp BP Sys/Ascencio Pulse Ox Last 24 Hr 98 F-100.7 F 78-112 18-28 97-127/62-98 100-100 GENERAL: lethargic, eyes open NECK: Trachea midline, full range of motion, supple. LUNGS: Breath sounds diminished HEART: sinus rhythm 93 on alarm security or surveillance monitor ABDOMEN: less distended abdomen, hypoactive bowel sounds EXTREMITIES: no edema. NEUROLOGICAL: Lethargic, has profound MR, seizure precautions Laboratory Results - last 24 hr 02/23/17 02/24/17 02/25/17 07:20 17:33 05:45 WBC 7.3 RBC 3.52 L Hgb 10.4 L Hct 30.9 L MCV 87.6 MCHC 33.6 RDW 17.7 H Plt Count 136 MPV 8.5 Neutrophils % 78.5 Lymphocytes % 11.3 Monocytes % 8.4 Eosinophils % 1.5 D Basophils % 0.3 Sodium Potassium Chloride Carbon Dioxide Anion Gap BUN Creatinine Creat Clearance w eGFR Random Glucose POC Glucometer 97.19504 Calcium Total Bilirubin AST ALT Alkaline Phosphatase Total Protein Albumin Hep A IgM Ab Confirm Negative Hepatitis A Ab Total Positive H Hep Bs Antigen Negative Hep Bs Antibody Reactive Hep B Core Total Ab Positive H 02/25/17 05:45 WBC RBC Hgb Hct MCV MCHC RDW Plt Count MPV Neutrophils % Lymphocytes % Monocytes % Eosinophils % Basophils % Sodium 142 Potassium 3.6 Chloride 106 Carbon Dioxide 30 Anion Gap 6 L BUN 8 D Creatinine 0.3 L D Creat Clearance w eGFR > 60 Random Glucose 79 D POC Glucometer Calcium 7.9 L Total Bilirubin 0.4 AST 38 H D ALT 78 D Alkaline Phosphatase 97 Total Protein 5.3 L Albumin 2.4 L Hep A IgM Ab Confirm Hepatitis A Ab Total Hep Bs Antigen Hep Bs Antibody Hep B Core Total Ab Active Medications Generic Name Dose Route Start Last Admin Trade Name Freq PRN Reason Stop Dose Admin Bisacodyl 10 mg 02/25/17 09:05 Dulcolax Suppository - RC DAILY PRN CONSTIPATION Enoxaparin Sodium 40 mg 02/25/17 10:00 02/25/17 12:08 Lovenox - SQ Not Given DAILY DARWIN Famotidine/Sodium Chloride 50 mls @ 100 mls/hr 02/25/17 10:00 02/25/17 12:09 Pepcid 20 Mg Premixed Ivpb - IVPB Not Given BID DARWIN Piperacillin Sod/Tazobactam Sod 50 mls @ 100 mls/hr 02/25/17 10:00 02/25/17 12: 09 Zosyn 3.375gm Ivpb (Pre-Docked) IVPB Not Given Q8H-IV DARWIN Protocol Levetiracetam 500 mg 02/25/17 10:00 02/25/17 12:08 Keppra Injection - IVPB Not Given BID DARWIN Lorazepam 0.5 mg 02/25/17 09:05 Ativan Injection - IVPUSH Q6H-IV PRN MUSCLE SPASMS Ondansetron HCl 4 mg 02/25/17 09:05 Zofran Injection IVPB Q6H PRN NAUSEA Polyethylene Glycol 17 gm 02/25/17 10:00 Miralax (For Daily Use) - PO DAILY D[facility]WIN ASSESSMENT/PLAN: Patient is a 51 year old female who resides at [facility]. 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 She was reported to have had multiple seizures in the [facility] as well as en route to the hospital, where she had 2 witnessed seizures which appeared to be tonic clonic seizures as per ED notes. Chest xray 02/24/2017: left lower lobe consolidation. ID: Sepsis - acute Assessment/Plan: Patient now with low grade fevers, heart rate 90s, more wake, blood pressure stabilizing - not on pressors Lactic acidosis on admission, now resolved initial blood culture with staph coag, repeated blood cultures pending ID consulted, started on Zosyn (day 3), was given one dose of Vancomycin 02/22 Continue IVFs Neurology: Seizures - acute on chronic Assessment/Plan: Patients presents to ER with multiple witnessed seizure activity On Keppra 500mg q12 IV and Ativan 0.5mg q6 Last reported seizure prior to admission was over 6 months ago GI: Abdominal distention/rule out SBO Assessment/Plan: Abdomen XRay shows fecal retention, no acute pathology Abdomen less distended today, hypoactive bowels NGT to be removed, minimal drainage overnight of 150cc Elevated AST/ALT Assessment/Plan: AST, ALT trending down Continue to trend Hepatitis panel pending GI following Endocrine: Hypoglycemia - acute vs. chronic Assessment/Plan: BGMs q4 while NPO Protein Calorie Malnutrition Assessment/Plan: Hypokalemia resolved BMI 17.2, low albumin and total protein low She has profound MR, cerebral palsy, severe static encephalopahty NGT removed, RD consulted, swallow evaluation, Ensure with meals, pureed diet, honey thick liquids Monitor weights, intake and output Clinimax until patient able to tolerate pureed diet F.E.N. Fluids: started on Clinimax for poor PO intake Electrolytes: monitor BMP Nutrition: pureed diet, honey thick, aspiration precautions Prophylaxis: GI: zofran, miralax, dulcolax DVT: Lovenox 40mg Disposition: Full Code. Visit type - Emergency Visit Emergency Visit: Yes ED Registration Date: 02/21/17 Care time: The patient presented to the Emergency Department on the above date and was hospitalized for further evaluation of their emergent condition. - New Patient This patient is new to me today: No - Critical Care Critical Care patient: Yes Total Critical Care Time (in minutes): 60 Critical Care Statement: The care of this patient involved high complexity decision making to prevent further life threatening deterioration of the patient 's condition and/or to evalute & treat vital organ system(s) failure or risk of failure.
--- NOTE | 2017-02-25 15:23 | PN ---
Progress Note, Physician History of Present Illness: patient more awake but according to the aide who takes care of her she is not at par now spiking low grade fevers - Current Medication List Current Medications: Active Medications Bisacodyl (Dulcolax Suppository -) 10 mg RC DAILY PRN PRN Reason: CONSTIPATION Enoxaparin Sodium (Lovenox -) 40 mg SQ DAILY [facility] Last Admin: 02/25/17 12:08 Dose: Not Given Famotidine/Sodium Chloride (Pepcid 20 Mg Premixed Ivpb -) 50 mls @ 100 mls/hr IVPB BID [facility] Last Admin: 02/25/17 12:09 Dose: Not Given Piperacillin Sod/Tazobactam Sod (Zosyn 3.375gm Ivpb (Pre-Docked)) 50 mls @ 100 mls/hr IVPB Q8H-IV DARWIN PRN Reason: Protocol Last Admin: 02/25/17 12:09 Dose: Not Given Amino Acids (Clinimix -) 1,000 mls @ 42 mls/hr IV Q24H DARWIN Clindamycin Phosphate (Cleocin 600 Mg Premix Ivpb -) 50 mls @ 100 mls/hr IVPB Q6H-IV DARWIN Levetiracetam (Keppra Injection -) 500 mg IVPB BID [facility] Last Admin: 02/25/17 12:08 Dose: Not Given Lorazepam (Ativan Injection -) 0.5 mg IVPUSH Q6H-IV PRN PRN Reason: MUSCLE SPASMS Ondansetron HCl (Zofran Injection) 4 mg IVPB Q6H PRN PRN Reason: NAUSEA Polyethylene Glycol (Miralax (For Daily Use) -) 17 gm PO DAILY [facility] - Objective Vital Signs: Vital Signs Temperature 99.8 F H 02/25/17 10:00 Pulse Rate 109 H 02/25/17 12:07 Respiratory Rate 18 02/25/17 12:07 Blood Pressure 123/98 02/25/17 12:07 O2 Sat by Pulse Oximetry (%) 100 02/25/17 07:43 Constitutional: Yes: No Distress, Calm Cardiovascular: Yes: Regular Rate and Rhythm Respiratory: Yes: Regular, Poor Air Entry, Rhonchi Gastrointestinal: Yes: Normal Bowel Sounds, Soft Musculoskeletal: Yes: Other Extremities: Yes: Other Neurological: Yes: Alert Psychiatric: Yes: Alert Labs: CBC, BMP 02/25/17 05:45 02/25/17 05:45 INR, PTT INR 1.14 (0.82-1.09) 02/23/17 23:00 - ....Imaging Chest X-ray: Report Reviewed, Image Reviewed Assessment/Plan Seizures Abdominal distention Sepsis Hypoglycemia lactic acidosis ng tube removed plan iv fluids cx result noted continue zosyn will add clinda i suggest to keep the patient npo cc time 40 min
[2017-02-25] MEDS: POLYETHYLENE GLYCOL 3350 119 GM BTL PO SCH (15:24)
[2017-02-25] MEDS: CLINDAMYCIN 600MG PREMIX IVPB 50 ML IVPB SCH ×2 (16:10→21:00)
[2017-02-25] MEDS: AMINO ACIDS 4.25%/D5W 1,000 ML IV SCH (19:02)
--- NOTE | 2017-02-25 22:22 | PN ---
Progress Note (short form) - Note Progress Note: NEUROLOGY F/U: Events reviewed. Patient examined. Discussed with her two long-term caregivers at the bedside. Caregivers note that Pt is much more awake, alert and nearing her baseline except for some difficulty swallowing. "A whole lot better." On antibiotics but continues with intermittent low-grade temps. No seizures on levetiracetam 500 mg q 12 hrs. EXAM: Awake. Eyes open. Full roving EOM's. Blinks to threat all lee. Gag present. Tetraparesis with contractures. Brisk reflexes. IMP: Severe static encephalopathy. Seizure disorder Toxic-metabolic encephalopathy. Suggest: Continue antibiotics and hydration. Begin to feed cautiously with HOB elevated Continue Levetiracetam 500 mg q!2 hrs. Can give IV for now but would convert to elixor (PO or enteric feeding) as soon as feasible. Continue levetiracetam as out patient. No need to resume/restart diphenylhidantoin. Thank you very much, Vincent Long MD
[2017-02-26] MEDS: CLINDAMYCIN 600MG PREMIX IVPB 50 ML IVPB SCH ×4 (02:37→21:00)
[2017-02-26] MEDS: PIPERACILLIN/TAZOB 3.375 GM 50 ML IVPB SCH ×3 (02:38→18:12)
[2017-02-26] MEDS: levETIRAcetam 500 MG/5 ML INJECTION VIAL IVPB SCH ×2 (09:39→22:40)
[2017-02-26] MEDS: ENOXAPARIN NA (PORCINE) 40 MG/0.4 ML DISP.SYRIN SQ SCH (09:40)
[2017-02-26] MEDS: FAMOTIDINE 20 MG/50 ML IVPB 50 ML IVPB SCH ×2 (09:43→22:40)
[2017-02-26] MEDS: POLYETHYLENE GLYCOL 3350 119 GM BTL PO SCH (10:00)
--- NOTE | 2017-02-26 10:04 | PN ---
Progress Note, AUTOMATION APPLICATION ENGINEER - Note Progress Note: Selected Entries 02/25/17 02/25/17 02/25/17 02:00 06:00 07:42 Temperature 99.2 F 100.7 F H 99.8 F H 02/25/17 02/25/17 02/25/17 10:00 16:00 20:00 Temperature 99.8 F H 100 F H 100.2 F H 02/25/17 02/26/17 02/26/17 22:00 02:00 04:00 Temperature 100.3 F H 99.7 F H 99.2 F 02/26/17 02/26/17 06:00 08:00 Temperature 100 F H 99.9 F H Laboratory Tests 02/24/17 02/25/17 05:15 05:45 WBC 7.8 7.3 RCC NA reports she clenched her lips yesterday and did not eat all day. However, today pt accepted and tolerated all of hot cereal, mixed with ensure, and a little OJ. Pt now on Clinimix. Monitor PO tolerance/sufficient acceptance as she improves.
--- NOTE | 2017-02-26 11:05 | PN ---
Physical Exam: SUBJECTIVE: Patient seen and examined at the bedside. She is more awake and alert today. Aide at the bedside, states patient appears at her baseline. OBJECTIVE: continue Clinimax Still having fevers, may be aspirating feeds, make NPO now 2 liter of nasal cannula Non pitting edema of bilateral feet, likely secondary to fluid overload: monitor Vital Signs Period Temp Pulse Resp BP Sys/Ascencio Pulse Ox Last 24 Hr 99.2 F-100.3 F 88-109 18-28 102-129/58-98 100-100 GENERAL: more awake, eyes open, minimal eye contact NECK: Trachea midline, full range of motion, supple. LUNGS: Breath sounds diminished HEART: sinus rhythm on supervisor compressed yeast ABDOMEN: soft, non distended distended abdomen, +bowel sounds EXTREMITIES: non pitting edema of bilateral feet NEUROLOGICAL: profound MR, seizure precautions Laboratory Results - last 24 hr 02/24/17 17:33 POC Glucometer 97.19298 Active Medications Generic Name Dose Route Start Last Admin Trade Name Freq PRN Reason Stop Dose Admin Bisacodyl 10 mg 02/25/17 09:05 Dulcolax Suppository - RC DAILY PRN CONSTIPATION Enoxaparin Sodium 40 mg 02/25/17 10:00 02/26/17 09:40 Lovenox - SQ 40 mg DAILY DARWIN Administration Famotidine/Sodium Chloride 50 mls @ 100 mls/hr 02/25/17 10:00 02/26/17 09:43 Pepcid 20 Mg Premixed Ivpb - IVPB 100 mls/hr BID DARWIN Administration Piperacillin Sod/Tazobactam Sod 50 mls @ 100 mls/hr 02/25/17 10:00 02/26/17 09: 40 Zosyn 3.375gm Ivpb (Pre-Docked) IVPB 100 mls/hr Q8H-IV DARWIN Administration Protocol Amino Acids 1,000 mls @ 42 mls/hr 02/25/17 15:15 02/25/17 19:02 Clinimix - IV 42 mls/hr Q24H DARWIN Administration Clindamycin Phosphate 50 mls @ 100 mls/hr 02/25/17 15:30 02/26/17 09:39 Cleocin 600 Mg Premix Ivpb - IVPB 100 mls/hr Q6H-IV DARWIN Administration Levetiracetam 500 mg 02/25/17 10:00 02/26/17 09:39 Keppra Injection - IVPB 500 mg BID DARWIN Administration Lorazepam 0.5 mg 02/25/17 09:05 Ativan Injection - IVPUSH Q6H-IV PRN MUSCLE SPASMS Ondansetron HCl 4 mg 02/25/17 09:05 Zofran Injection IVPB Q6H PRN NAUSEA Polyethylene Glycol 17 gm 02/25/17 10:00 02/25/17 15:24 Miralax (For Daily Use) - PO Not Given DAILY DARWIN ASSESSMENT/PLAN: Patient is a 51 year old female who resides at [facility]. 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 She was reported to have had multiple seizures in the [facility] as well as en route to the hospital, where she had 2 witnessed seizures which appeared to be tonic clonic seizures as per ED notes. Chest xray 02/24/2017: left lower lobe consolidation. ID: Sepsis - improving Assessment/Plan: Patient now with low grade fevers, heart rate 90s, more wake, blood pressure stabilizing- not on pressors Lactic acidosis on admission, now resolved initial blood culture with staph coag, repeated blood cultures with no growth to date ID [email or web address] started on Zosyn (day 4), Clindamycin (day 2) One dose of Vancomycin 02/22 Neurology: Seizures - acute on chronic Assessment/Plan: Patients presents to ER with multiple witnessed seizure activity On Keppra 500mg q12 IV and Ativan 0.5mg q6 Last reported seizure prior to admission was over 6 months ago No seizure activity since admission Neuro following GI: Abdominal distention/rule out SBO Assessment/Plan: Abdomen XRay shows fecal retention, no acute pathology Abdomen less distended today, hypoactive bowels NGT removed NPO for persistent fevers, will start feeds when more stable Elevated AST/ALT Assessment/Plan: AST, ALT trending down Continue to trend Hepatitis panel pending GI following Endocrine: Hypoglycemia - acute vs. chronic Assessment/Plan: BGMs q4 while NPO Protein Calorie Malnutrition Assessment/Plan: Hypokalemia resolved BMI 17.2, low albumin and total protein low She has profound MR, cerebral palsy, severe static encephalopahty NGT removed, RD consulted, swallow evaluation, NPO for now until fevers resolve Clinimax until patient able to tolerate pureed diet Once more stable, start Ensure with meals, pureed diet, honey thick liquids F.E.N. Fluids: started on Clinimax for poor PO intake and suspected aspiration Electrolytes: monitor BMP Nutrition: pureed diet, honey thick, aspiration precautions Prophylaxis: GI: zofran, miralax, dulcolax DVT: Lovenox 40mg Disposition: Full Code. Requires ICU monitoring. Visit type - Emergency Visit Emergency Visit: Yes ED Registration Date: 02/21/17 Care time: The patient presented to the Emergency Department on the above date and was hospitalized for further evaluation of their emergent condition. - New Patient This patient is new to me today: No - Critical Care Critical Care patient: Yes Total Critical Care Time (in minutes): 45 Critical Care Statement: The care of this patient involved high complexity decision making to prevent further life threatening deterioration of the patient 's condition and/or to evalute & treat vital organ system(s) failure or risk of failure. - Discharge Referral Referred to [facility] Med P.C.: No
--- NOTE | 2017-02-26 14:31 | PN ---
Progress Note, Physician History of Present Illness: patient much better spoke with the aid patient now has been afebrile looking much awake and alert - Current Medication List Current Medications: Active Medications Bisacodyl (Dulcolax Suppository -) 10 mg RC DAILY PRN PRN Reason: CONSTIPATION Enoxaparin Sodium (Lovenox -) 40 mg SQ DAILY [facility] Last Admin: 02/26/17 09:40 Dose: 40 mg Famotidine/Sodium Chloride (Pepcid 20 Mg Premixed Ivpb -) 50 mls @ 100 mls/hr IVPB BID [facility] Last Admin: 02/26/17 09:43 Dose: 100 mls/hr Piperacillin Sod/Tazobactam Sod (Zosyn 3.375gm Ivpb (Pre-Docked)) 50 mls @ 100 mls/hr IVPB Q8H-IV DARWIN PRN Reason: Protocol Last Admin: 02/26/17 09:40 Dose: 100 mls/hr Amino Acids (Clinimix -) 1,000 mls @ 42 mls/hr IV Q24H [facility]ARWIN Last Admin: 02/25/17 19:02 Dose: 42 mls/hr Clindamycin Phosphate (Cleocin 600 Mg Premix Ivpb -) 50 mls @ 100 mls/hr IVPB Q6H-IV [facility] Last Admin: 02/26/17 09:39 Dose: 100 mls/hr Levetiracetam (Keppra Injection -) 500 mg IVPB BID [facility] Last Admin: 02/26/17 09:39 Dose: 500 mg Lorazepam (Ativan Injection -) 0.5 mg IVPUSH Q6H-IV PRN PRN Reason: MUSCLE SPASMS Ondansetron HCl (Zofran Injection) 4 mg IVPB Q6H PRN PRN Reason: NAUSEA Polyethylene Glycol (Miralax (For Daily Use) -) 17 gm PO DAILY [facility] Last Admin: 02/25/17 15:24 Dose: Not Given - Objective Vital Signs: Vital Signs Temperature 99.3 F 02/26/17 12:00 Pulse Rate 113 H 02/26/17 12:00 Respiratory Rate 19 02/26/17 12:00 Blood Pressure 106/74 02/26/17 12:00 O2 Sat by Pulse Oximetry (%) 100 02/26/17 09:00 Constitutional: Yes: No Distress, Calm Respiratory: Yes: Regular, CTA Bilaterally Gastrointestinal: Yes: Normal Bowel Sounds, Soft Musculoskeletal: Yes: WNL Extremities: Yes: WNL Neurological: Yes: Alert Psychiatric: Yes: Alert Labs: CBC, BMP 02/25/17 05:45 02/25/17 05:45 INR, PTT INR 1.14 (0.82-1.09) 02/23/17 23:00 Assessment/Plan Seizures Abdominal distention Sepsis Hypoglycemia lactic acidosis fever plan icontinue abx patient improving no new issues patient now afebrile rest ct as per icu cc time 40 min
--- NOTE | 2017-02-26 15:34 | PN ---
Teaching Attending Note Name of Resident: Cassidy Simon ATTENDING PHYSICIAN STATEMENT I saw and evaluated the patient. I reviewed the resident's note and discussed the case with the resident. I agree with the resident's findings and plan as documented. SUBJECTIVE: Patient seen and examined in the ICU. NAD on NC O2. No acute events overnight. OBJECTIVE: Intake & Output 02/23/17 02/24/17 02/25/17 02/26/17 23:59 23:59 23:59 23:59 Intake Total 2075 1875 500 100 Output Total 150 1550 600 325 Balance 1925 325 -100 -225 Last Vital Signs Temp Pulse Resp BP Pulse Ox 98.9 F 105 H 24 99/66 100 02/26/17 14:00 02/26/17 14:00 02/26/17 14:00 02/26/17 14:00 02/26/17 09:00 Active Medications Bisacodyl (Dulcolax Suppository -) 10 mg RC DAILY PRN PRN Reason: CONSTIPATION Enoxaparin Sodium (Lovenox -) 40 mg SQ DAILY [facility] Last Admin: 02/26/17 09:40 Dose: 40 mg Famotidine/Sodium Chloride (Pepcid 20 Mg Premixed Ivpb -) 50 mls @ 100 mls/hr IVPB BID [facility] Last Admin: 02/26/17 09:43 Dose: 100 mls/hr Piperacillin Sod/Tazobactam Sod (Zosyn 3.375gm Ivpb (Pre-Docked)) 50 mls @ 100 mls/hr IVPB Q8H-IV DARWIN PRN Reason: Protocol Last Admin: 02/26/17 09:40 Dose: 100 mls/hr Amino Acids (Clinimix -) 1,000 mls @ 42 mls/hr IV Q24H DARWIN Last Admin: 02/25/17 19:02 Dose: 42 mls/hr Clindamycin Phosphate (Cleocin 600 Mg Premix Ivpb -) 50 mls @ 100 mls/hr IVPB Q6H-IV [facility]WIN Last Admin: 02/26/17 09:39 Dose: 100 mls/hr Levetiracetam (Keppra Injection -) 500 mg IVPB BID [facility] Last Admin: 02/26/17 09:39 Dose: 500 mg Lorazepam (Ativan Injection -) 0.5 mg IVPUSH Q6H-IV PRN PRN Reason: MUSCLE SPASMS Ondansetron HCl (Zofran Injection) 4 mg IVPB Q6H PRN PRN Reason: NAUSEA Polyethylene Glycol (Miralax (For Daily Use) -) 17 gm PO DAILY [facility] Last Admin: 02/25/17 15:24 Dose: Not Given Gen: NAD at rest Heart: tachycardic, regular Lung: bilateral rhonchi Abd: soft, nontender Ext: no edema Laboratory Results - last 24 hr 02/26/17 10:47 POC Glucometer 153.05731 ASSESSMENT AND PLAN: New Onset Seizure UTI Pneumonia Sepsis Elevated LFTs Mental Retardation Cerebral Palsy Functional Quadriplegia - continue antibiotics - aspiration precautions - antiepileptics - O2 to keep Spo2 >90% - DVT prophylaxis - can monitor on floor Dr Alex
[2017-02-26] MEDS ORDERED: ACETAMINOPHEN 325 MG TABLET (FP) PO PRN (16:14)
[2017-02-26] MEDS ORDERED: ACETAMINOPHEN 325 MG TABLET (FP) ONE (16:16)
--- NOTE | 2017-02-26 16:39 | PN ---
Physical Exam: SUBJECTIVE: Patient seen and examined. laying in bed, in NAD. OBJECTIVE: Vital Signs Period Temp Pulse Resp BP Sys/Ascencio Pulse Ox Last 24 Hr 98.9 F-100.3 F 88-113 18-28 96-129/58-88 100-100 GENERAL: The patient is awake in no acute distress. contracted in bed EYES: PERRL, sclera anicteric, conjunctiva clear ENT: moist mucous membranes. LUNGS: rhonchi, quiet at bases. no wheezing, no accessory muscle use. HEART: Regular rhythm and rate, S1, S2 without murmur, rub or gallop. ABDOMEN: Soft, nontender, nondistended, hypoactive bowel sounds, EXTREMITIES: + radial pulses, warm, well-perfused, all extremities contracted, severe scoliosis of the spine NEUROLOGICAL: pt is nonverbal/noncommunicative, profound MR Laboratory Results - last 24 hr 02/26/17 10:47 POC Glucometer 153.30791 Active Medications Generic Name Dose Route Start Last Admin Trade Name Freq PRN Reason Stop Dose Admin Acetaminophen 650 mg 02/26/17 16:14 Tylenol - PO Q6H PRN FEVER OR PAIN Bisacodyl 10 mg 02/25/17 09:05 Dulcolax Suppository - RC DAILY PRN CONSTIPATION Enoxaparin Sodium 40 mg 02/25/17 10:00 02/26/17 09:40 Lovenox - SQ 40 mg DAILY [facility] Administration Famotidine/Sodium Chloride 50 mls @ 100 mls/hr 02/25/17 10:00 02/26/17 09:43 Pepcid 20 Mg Premixed Ivpb - IVPB 100 mls/hr BID [facility] Administration Piperacillin Sod/Tazobactam Sod 50 mls @ 100 mls/hr 02/25/17 10:00 02/26/17 09: 40 Zosyn 3.375gm Ivpb (Pre-Docked) IVPB 100 mls/hr Q8H-IV BRANDEE Administration Protocol Amino Acids 1,000 mls @ 42 mls/hr 02/25/17 15:15 02/25/17 19:02 Clinimix - IV 42 mls/hr Q24H BRAN[facility]E Administration Clindamycin Phosphate 50 mls @ 100 mls/hr 02/25/17 15:30 02/26/17 09:39 Cleocin 600 Mg Premix Ivpb - IVPB 100 mls/hr Q6H-IV [facility]E Administration Levetiracetam 500 mg 02/25/17 10:00 02/26/17 09:39 Keppra Injection - IVPB 500 mg BID [facility]E Administration Lorazepam 0.5 mg 02/25/17 09:05 Ativan Injection - IVPUSH Q6H-IV PRN MUSCLE SPASMS Ondansetron HCl 4 mg 02/25/17 09:05 Zofran Injection IVPB Q6H PRN NAUSEA Polyethylene Glycol 17 gm 02/25/17 10:00 02/25/17 15:24 Miralax (For Daily Use) - PO Not Given DAILY [facility]E ASSESSMENT/PLAN: 51 yr old woman with severe static encephalopathy, chronic spastic tetraparesis , and seizure disorder from [place] admitted for seizures found to have fever , hypoxia, and episode hypotension non-responsive to fluid bolus on med/surg floor transferred for concern of septic shock. Cardiovascular - BP normotensive - tachycardia decreased Infectious Disease sepsis from UTI or aspiration pna zosyn 3.375gm IVPB q8hr + cleocin gutierrez-cxed: Bld cx NGTD, urine cx pending Renal florence in place for I&O monitoring Pulmonary saturing well on nasal cannula left lower infiltrate - likely aspiration pna GI hx of chronic constipation bowel regimen with dulcolax suppository zofran 4mg prn IVPB q6hr transaminitis- shows possible Heb B vaccine and Hep A antibody keep npo and on clinemix until pt is no longer febrile Neurological seizure d/o [id number] IVPB BID brandee ativan q6h prn functional quadraplegia consult: Dr. bo DVT: lovenox 40sq diet; npo pending further evaluation Dispo: patient's condition has improved and she can be monitored further on Med/ surg floor Visit type - Emergency Visit Emergency Visit: No - New Patient This patient is new to me today: No - Critical Care Critical Care patient: Yes Total Critical Care Time (in minutes): 35 Critical Care Statement: The care of this patient involved high complexity decision making to prevent further life threatening deterioration of the patient 's condition and/or to evalute & treat vital organ system(s) failure or risk of failure.
[2017-02-26] MEDS: AMINO ACIDS 4.25%/D5W 1,000 ML IV SCH (22:39)
[2017-02-27] MEDS: PIPERACILLIN/TAZOB 3.375 GM 50 ML IVPB SCH ×3 (02:00→18:49)
[2017-02-27] MEDS: CLINDAMYCIN 600MG PREMIX IVPB 50 ML IVPB SCH ×4 (03:30→20:30)
[2017-02-27 07:30] LABS: ALBUMIN 2.3 g/dl (3.4-5.0); ANION GAP 11 (8-16); CALCIUM 7.9 mg/dL (8.5-10.1); CO2 29 mmol/L (21-32); CREATININE 0.3 mg/dL (0.55-1.02); GLUCOSE,RANDOM 100 mg/dL (74-106); SGOT/AST 66 U/L (15-37); SGPT/ALT 60 U/L (12-78)
[2017-02-27 07:32] LABS: ALK PHOS 96 U/L (45-117); BILIRUBIN,TOTAL 0.5 mg/dL (0.2-1.0); TOT PROT 5.4 g/dl (6.4-8.2)
[2017-02-27 07:46] LABS: BASOPHIL 0.2 % (0-2.0); EOSINOPHIL 1.2 % (0-4.5); MCH 29.9 pg (25.7-33.7); MCHC 34.6 g/dl (32.0-36.0); MEAN CELL VOLUME 86.6 fl (80-96); MEAN PLT VOLUME 8.6 fl (7.5-11.1); NEUTROPHILS 78.6 % (42.8-82.8); PLATELET COUNT 254 K/MM3 (134-434); RDW 17.8 % (11.6-15.6); WHITE BLOOD COUNT 8.8 K/mm3 (4.0-10.0)
[2017-02-27] MEDS: ENOXAPARIN NA (PORCINE) 40 MG/0.4 ML DISP.SYRIN SQ SCH (09:35)
[2017-02-27] MEDS: levETIRAcetam 500 MG/5 ML INJECTION VIAL IVPB SCH ×2 (09:35→21:35)
[2017-02-27] MEDS: POLYETHYLENE GLYCOL 3350 119 GM BTL PO SCH (09:36)
[2017-02-27] MEDS: AMINO ACIDS 4.25%/D5W 1,000 ML IV SCH ×2 (09:36→19:30)
[2017-02-27] MEDS: FAMOTIDINE 20 MG/50 ML IVPB 50 ML IVPB SCH ×2 (09:36→21:00)
--- NOTE | 2017-02-27 09:52 | PN ---
Progress Note (short form) - Note Progress Note: PULM / CCM
--- NOTE | 2017-02-27 10:09 | PN ---
Progress Note (short form) - Note Progress Note: PULM / CCM Pt seen & examined in the ICU. Awake. NAD. No Szs. Ready for Xprt --> Floor. Active Medications Acetaminophen (Tylenol -) 650 mg PO Q6H PRN PRN Reason: FEVER OR PAIN Last Admin: 02/26/17 17:00 Dose: 650 mg Acetaminophen (Tylenol Suppository -) 650 mg NV ONCE ONE Stop: 02/27/17 09:55 Bisacodyl (Dulcolax Suppository -) 10 mg RC DAILY PRN PRN Reason: CONSTIPATION Enoxaparin Sodium (Lovenox -) 40 mg SQ DAILY [facility] Last Admin: 02/27/17 09:35 Dose: 40 mg Famotidine/Sodium Chloride (Pepcid 20 Mg Premixed Ivpb -) 50 mls @ 100 mls/hr IVPB BID [facility] Last Admin: 02/27/17 09:36 Dose: 100 mls/hr Piperacillin Sod/Tazobactam Sod (Zosyn 3.375gm Ivpb (Pre-Docked)) 50 mls @ 100 mls/hr IVPB Q8H-IV [facility] PRN Reason: Protocol Last Admin: 02/27/17 09:36 Dose: 100 mls/hr Clindamycin Phosphate (Cleocin 600 Mg Premix Ivpb -) 50 mls @ 100 mls/hr IVPB Q6H-IV [facility] Last Admin: 02/27/17 09:35 Dose: 100 mls/hr Amino Acids (Clinimix -) 1,000 mls @ 42 mls/hr IV Q12H [facility] Last Admin: 02/27/17 09:36 Dose: Not Given Levetiracetam (Keppra Injection -) 500 mg IVPB BID [facility] Last Admin: 02/27/17 09:35 Dose: 500 mg Lorazepam (Ativan Injection -) 0.5 mg IVPUSH Q6H-IV PRN PRN Reason: MUSCLE SPASMS Ondansetron HCl (Zofran Injection) 4 mg IVPB Q6H PRN PRN Reason: NAUSEA Polyethylene Glycol (Miralax (For Daily Use) -) 17 gm PO DAILY [facility] Last Admin: 02/27/17 09:36 Dose: Not Given V/S Period Temp Pulse Resp BP Sys/Ascencio Pulse Ox Last 24 Hr 98.4 F-101.1 F 84-113 18-24 86-113/56-88 100-100 I/O's 02/24/17 02/25/17 02/26/17 02/27/17 23:59 23:59 23:59 23:59 Intake Total 1875 500 450 654 Output Total 1550 039 705 8425 Balance 325 100 -125 -446 GEN: Young woman, disabled, obvious severe MR, contracted, in bed, NAD HEENT: PERRL, an-icteric, MMM PULM: coarse B/L CV: nml S1 S2, RR, unable to appreciate any G/M/R ABD: + BS, S/S N/T N/D X4Q EXT: Contracted, + Pulses, WWPX4, peripheral edema NEURO: profound MR, Doesn't follow commands, does not track, does not attend CBC, BMP 02/27/17 05:20 02/27/17 05:20 Microbiology 02/23/17 23:00 Blood - Peripheral Venous Blood Culture - Preliminary NO GROWTH OBTAINED AFTER 72 HOURS, INCUBATION TO CONTINUE FOR 2 DAYS. 02/23/17 23:00 Blood - Peripheral Venous Blood Culture - Preliminary NO GROWTH OBTAINED AFTER 72 HOURS, INCUBATION TO CONTINUE FOR 2 DAYS. 02/22/17 10:42 Blood - Peripheral Venous Blood Culture - Preliminary NO GROWTH OBTAINED AFTER 96 HOURS, INCUBATION TO CONTINUE FOR 1 DAYS. 02/22/17 10:40 Blood - Peripheral Venous Blood Culture - Preliminary NO GROWTH OBTAINED AFTER 96 HOURS, INCUBATION TO CONTINUE FOR 1 DAYS. 02/24/17 07:00 Urine - Urine Clean Catch Urine Culture - Final 02/21/17 08:50 Blood - Peripheral Venous Blood Culture - Final NO GROWTH AFTER 5 DAYS INCUBATION 02/21/17 08:50 Blood - Peripheral Venous Blood Culture - Final Staphylococcus Capitis 02/21/17 10:21 Urine - Urine - Catheterized Urine Culture - Final CXR 02/27: No CVC, No ETT, multilobar pna, R side effusion (My Read) ASSESS: -PNA +/- UTI -Szs PLAN: -FiO2 for an SpO2 > 92% -Nebs prn -Resting comfortable -Cont Abx -F/u Clxrs -Trend LA -Gentle Diuresis -Strict I's & O's -Trend BUN/Cr -Replete e-lytes -Cont Bowel Rest -Cont TPN -BR -Cont AEDs -NEURO Consult -Cont Lovenox -Pepcid -Transfer --> Med/Surg Gee Ashby, ACNP- [id number] PULM / CCM
[2017-02-27] MEDS ORDERED: ACETAMINOPHEN 650 MG SUPP.RECT PR ONE ×2 (10:45→23:12)
--- NOTE | 2017-02-27 18:23 | PN ---
Physical Exam: SUBJECTIVE: Patient seen and examined in ICU. Pt is non verbal at baseline. Events: - Tmax 100.1 OBJECTIVE: Vital Signs Period Temp Pulse Resp BP Sys/Ascencio Pulse Ox Last 24 Hr 98.4 F-100.1 F 84-105 18-25 86-123/56-88 100-100 PE Neuro: no verbal, moans, does not follow commands, severe MR, awake Pulm: rhonchi at bases + NC CV: s1 s2 rrr no mrg Abd: s nt nd + bs : + [place] Ext: upper and lower contractures Laboratory Results - last 24 hr 02/27/17 02/27/17 05:20 05:20 WBC 8.8 RBC 3.60 Hgb 10.8 Hct 31.2 L MCV 86.6 MCHC 34.6 RDW 17.8 H Plt Count 254 D MPV 8.6 Neutrophils % 78.6 Lymphocytes % 9.0 D Monocytes % 11.0 H Eosinophils % 1.2 Basophils % 0.2 Sodium 140 Potassium 3.3 L Chloride 100 Carbon Dioxide 29 Anion Gap 11 BUN 9 Creatinine 0.3 L Creat Clearance w eGFR > 60 Random Glucose 100 D Calcium 7.9 L Total Bilirubin 0.5 D AST 66 H D ALT 60 D Alkaline Phosphatase 96 Total Protein 5.4 L Albumin 2.3 L 02/23/17 07:20 Hep A IgM Ab Confirm Negative Hepatitis A Ab Total Positive H Hep Bs Antigen Negative Hep Bs Antibody Reactive Hep B Core Total Ab Positive H Active Medications Generic Name Dose Route Start Last Admin Trade Name Freq PRN Reason Stop Dose Admin Acetaminophen 650 mg 02/26/17 16:14 02/26/17 17:00 Tylenol - PO 650 mg Q6H PRN Administration FEVER OR PAIN Bisacodyl 10 mg 02/25/17 09:05 Dulcolax Suppository - RC DAILY PRN CONSTIPATION Enoxaparin Sodium 40 mg 02/25/17 10:00 02/27/17 09:35 Lovenox - SQ 40 mg DAILY [facility] Administration Famotidine/Sodium Chloride 50 mls @ 100 mls/hr 02/25/17 10:00 02/27/17 09:36 Pepcid 20 Mg Premixed Ivpb - IVPB 100 mls/hr BID [facility] Administration Piperacillin Sod/Tazobactam Sod 50 mls @ 100 mls/hr 02/25/17 10:00 02/27/17 09: 36 Zosyn 3.375gm Ivpb (Pre-Docked) IVPB 100 mls/hr Q8H-IV [facility] Administration Protocol Clindamycin Phosphate 50 mls @ 100 mls/hr 02/25/17 15:30 02/27/17 16:00 Cleocin 600 Mg Premix Ivpb - IVPB 100 mls/hr Q6H-IV [facility] Administration Amino Acids 1,000 mls @ 42 mls/hr 02/26/17 18:15 02/27/17 09:36 Clinimix - IV Not Given Q12H [facility] Levetiracetam 500 mg 02/25/17 10:00 02/27/17 09:35 Keppra Injection - IVPB 500 mg BID [facility] Administration Lorazepam 0.5 mg 02/25/17 09:05 Ativan Injection - IVPUSH Q6H-IV PRN MUSCLE SPASMS Ondansetron HCl 4 mg 02/25/17 09:05 Zofran Injection IVPB Q6H PRN NAUSEA Polyethylene Glycol 17 gm 02/25/17 10:00 02/27/17 09:36 Miralax (For Daily Use) - PO Not Given DAILY [facility] Microbiology 02/22/17 10:42 Blood - Peripheral Venous Blood Culture - Final NO GROWTH AFTER 5 DAYS INCUBATION 02/22/17 10:40 Blood - Peripheral Venous Blood Culture - Final NO GROWTH AFTER 5 DAYS INCUBATION 02/23/17 23:00 Blood - Peripheral Venous Blood Culture - Preliminary NO GROWTH OBTAINED AFTER 72 HOURS, INCUBATION TO CONTINUE FOR 2 DAYS. 02/23/17 23:00 Blood - Peripheral Venous Blood Culture - Preliminary NO GROWTH OBTAINED AFTER 72 HOURS, INCUBATION TO CONTINUE FOR 2 DAYS. 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 Plan: 1. Severe sepsis d/t aspiration PNA vs UTI - Sepsis resolving - Repeat cultures NGTD - Continue Zosyn (day 5) Clinda (day 3) Vanco 02/22 2. Acute on chronic seizures - Keppra 500mg q12 - Ativan 0.5mg q6hr 3. Chronic constipation - Maintain bowel regimen 4. Functional quadriplegia - D/t Severe MR underlying neurological disorders 5 Nutrition/severe calorie malnutrition - Hold NGT feedings - Clinimix - Ensure with meals, pureed diet, honey thick liquids 6. Hypoglycemia - Blood sugar stable 7. DVT ppx - Lovenox 40mg Dispo: - Transfer to floor Visit type - Emergency Visit Emergency Visit: Yes ED Registration Date: 02/21/17 Care time: The patient presented to the Emergency Department on the above date and was hospitalized for further evaluation of their emergent condition. - New Patient This patient is new to me today: Yes Date on this admission: 02/27/17 - Critical Care Critical Care patient: No
[2017-02-27] MEDS ORDERED: POTASSIUM CHLORIDE ORAL LIQUID 20 MEQ/15 ML PO ONE (18:42)
[2017-02-27] MEDS: KCL 10 MEQ IVPB 100 ML IVPB SCH ×3 (20:29→23:58)
[2017-02-28] MEDS: PIPERACILLIN/TAZOB 3.375 GM 50 ML IVPB SCH ×3 (02:08→17:03)
[2017-02-28] MEDS: CLINDAMYCIN 600MG PREMIX IVPB 50 ML IVPB SCH ×4 (03:25→21:40)
[2017-02-28] MEDS: AMINO ACIDS 4.25%/D5W 1,000 ML IV SCH ×3 (06:14→19:38)
[2017-02-28 06:27] LABS: MCH 29.5 pg (25.7-33.7); MCHC 33.7 g/dl (32.0-36.0); MEAN CELL VOLUME 87.5 fl (80-96); MEAN PLT VOLUME 8.2 fl (7.5-11.1); PLATELET COUNT 340 K/MM3 (134-434); RDW 18.1 % (11.6-15.6); WHITE BLOOD COUNT 9.1 K/mm3 (4.0-10.0)
[2017-02-28 07:07] LABS: ANION GAP 8 (8-16); CALCIUM 7.8 mg/dL (8.5-10.1); CO2 30 mmol/L (21-32); CREATININE 0.3 mg/dL (0.55-1.02); GLUCOSE,RANDOM 89 mg/dL (74-106); MAGNESIUM 1.7 mg/dL (1.8-2.4); PHOSPHOROUS 2.9 mg/dL (2.5-4.9)
[2017-02-28] MEDS: POLYETHYLENE GLYCOL 3350 119 GM BTL PO SCH (08:59)
[2017-02-28] MEDS: ENOXAPARIN NA (PORCINE) 40 MG/0.4 ML DISP.SYRIN SQ SCH (08:59)
[2017-02-28] MEDS: levETIRAcetam 500 MG/5 ML INJECTION VIAL IVPB SCH ×2 (08:59→21:40)
[2017-02-28] MEDS: BISACODYL 10 MG SUPP.RECT RC PRN (09:00)
[2017-02-28] MEDS: FAMOTIDINE 20 MG/50 ML IVPB 50 ML IVPB SCH ×2 (09:00→21:40)
--- NOTE | 2017-02-28 13:59 | PN ---
Progress Note (short form) - Note Progress Note: Progress Note: PULM / CCM Pt seen & examined in the ICU No events overnight remains waiting for bed low grade temp but normotensive Active Medications Acetaminophen (Tylenol -) 650 mg PO Q6H PRN PRN Reason: FEVER OR PAIN Last Admin: 02/26/17 17:00 Dose: 650 mg Bisacodyl (Dulcolax Suppository -) 10 mg RC DAILY PRN PRN Reason: CONSTIPATION Last Admin: 02/28/17 09:00 Dose: 10 mg Enoxaparin Sodium (Lovenox -) 40 mg SQ DAILY [facility] Last Admin: 02/28/17 08:59 Dose: 40 mg Famotidine/Sodium Chloride (Pepcid 20 Mg Premixed Ivpb -) 50 mls @ 100 mls/hr IVPB BID [facility] Last Admin: 02/28/17 09:00 Dose: 100 mls/hr Piperacillin Sod/Tazobactam Sod (Zosyn 3.375gm Ivpb (Pre-Docked)) 50 mls @ 100 mls/hr IVPB Q8H-IV [facility] PRN Reason: Protocol Last Admin: 02/28/17 09:00 Dose: 100 mls/hr Clindamycin Phosphate (Cleocin 600 Mg Premix Ivpb -) 50 mls @ 100 mls/hr IVPB Q6H-IV [facility] Last Admin: 02/28/17 08:49 Dose: 100 mls/hr Amino Acids (Clinimix -) 1,000 mls @ 42 mls/hr IV Q12H [facility] Last Admin: 02/28/17 06:14 Dose: 42 mls/hr Levetiracetam (Keppra Injection -) 500 mg IVPB BID [facility] Last Admin: 02/28/17 08:59 Dose: 500 mg Lorazepam (Ativan Injection -) 0.5 mg IVPUSH Q6H-IV PRN PRN Reason: MUSCLE SPASMS Ondansetron HCl (Zofran Injection) 4 mg IVPB Q6H PRN PRN Reason: NAUSEA Polyethylene Glycol (Miralax (For Daily Use) -) 17 gm PO DAILY [facility] Last Admin: 02/28/17 08:59 Dose: Not Given Vital Signs Temp 99.2 F 02/28/17 08:00 Pulse 88 02/28/17 12:00 Resp 18 02/28/17 12:00 BP 123/86 02/28/17 12:00 Pulse Ox 100 02/28/17 10:35 Intake & Output 02/27/17 02/28/17 02/28/17 23:59 11:59 23:59 Intake Total 1230 150 Output Total 800 200 Balance 430 -50 Weight 40.426 kg Intake: IV 630 SALINE LOCK 630 IVPB 600 150 Output: Urine 800 200 Void 500 Benitez 300 200 Other: Voiding Method Indwelling Catheter Diaper Weight Measurement Method Built in [facility] GEN: Young woman, disabled, obvious severe MR, contracted, in bed, NAD HEENT: PERRL, an-icteric, MMM PULM: coarse B/L CV: nml S1 S2, RR, unable to appreciate any G/M/R ABD: + BS, S/S N/T N/D X4Q EXT: Contracted, + Pulses, WWPX4, peripheral edema NEURO: profound MR, Doesn't follow commands, does not track, does not attend CBC, BMP 02/28/17 05:15 02/28/17 05:15 Microbiology 02/23/17 23:00 Blood - Peripheral Venous Blood Culture - Preliminary NO GROWTH OBTAINED AFTER 72 HOURS, INCUBATION TO CONTINUE FOR 2 DAYS. 02/23/17 23:00 Blood - Peripheral Venous Blood Culture - Preliminary NO GROWTH OBTAINED AFTER 72 HOURS, INCUBATION TO CONTINUE FOR 2 DAYS. 02/22/17 10:42 Blood - Peripheral Venous Blood Culture - Preliminary NO GROWTH OBTAINED AFTER 96 HOURS, INCUBATION TO CONTINUE FOR 1 DAYS. 02/22/17 10:40 Blood - Peripheral Venous Blood Culture - Preliminary NO GROWTH OBTAINED AFTER 96 HOURS, INCUBATION TO CONTINUE FOR 1 DAYS. 02/24/17 07:00 Urine - Urine Clean Catch Urine Culture - Final 02/21/17 08:50 Blood - Peripheral Venous Blood Culture - Final NO GROWTH AFTER 5 DAYS INCUBATION 02/21/17 08:50 Blood - Peripheral Venous Blood Culture - Final Staphylococcus Capitis 02/21/17 10:21 Urine - Urine - Catheterized Urine Culture - Final CXR 02/27: No CVC, No ETT, multilobar pna, R side effusion (My Read) ASSESS: -PNA +/- UTI -Szs PLAN: -FiO2 for an SpO2 > 92% -Nebs prn -Resting comfortable -Cont Abx -F/u Clxrs -Trend LA -Gentle Diuresis -Strict I's & O's -Trend BUN/Cr -Replete e-lytes -Cont Bowel Rest -Cont TPN -BR -Cont AEDs -NEURO Consult -Cont Lovenox -Pepcid -Transfer --> Med/Surg Boone Borrero, [facility]- [id number] PULM / CCM
--- NOTE | 2017-02-28 14:35 | PN ---
Progress Note, Physician History of Present Illness: stable doing well no new issues patient on clinimax still npo has been afebrile - Current Medication List Current Medications: Active Medications Acetaminophen (Tylenol -) 650 mg PO Q6H PRN PRN Reason: FEVER OR PAIN Last Admin: 02/26/17 17:00 Dose: 650 mg Bisacodyl (Dulcolax Suppository -) 10 mg RC DAILY PRN PRN Reason: CONSTIPATION Last Admin: 02/28/17 09:00 Dose: 10 mg Enoxaparin Sodium (Lovenox -) 40 mg SQ DAILY [facility] Last Admin: 02/28/17 08:59 Dose: 40 mg Famotidine/Sodium Chloride (Pepcid 20 Mg Premixed Ivpb -) 50 mls @ 100 mls/hr IVPB BID [facility] Last Admin: 02/28/17 09:00 Dose: 100 mls/hr Piperacillin Sod/Tazobactam Sod (Zosyn 3.375gm Ivpb (Pre-Docked)) 50 mls @ 100 mls/hr IVPB Q8H-IV [facility] PRN Reason: Protocol Last Admin: 02/28/17 09:00 Dose: 100 mls/hr Clindamycin Phosphate (Cleocin 600 Mg Premix Ivpb -) 50 mls @ 100 mls/hr IVPB Q6H-IV [facility] Last Admin: 02/28/17 14:25 Dose: 100 mls/hr Amino Acids (Clinimix -) 1,000 mls @ 42 mls/hr IV Q12H [facility] Last Admin: 02/28/17 06:14 Dose: 42 mls/hr Levetiracetam (Keppra Injection -) 500 mg IVPB BID [facility] Last Admin: 02/28/17 08:59 Dose: 500 mg Lorazepam (Ativan Injection -) 0.5 mg IVPUSH Q6H-IV PRN PRN Reason: MUSCLE SPASMS Ondansetron HCl (Zofran Injection) 4 mg IVPB Q6H PRN PRN Reason: NAUSEA Polyethylene Glycol (Miralax (For Daily Use) -) 17 gm PO DAILY [facility] Last Admin: 02/28/17 08:59 Dose: Not Given - Objective Vital Signs: Vital Signs Temperature 99.8 F H 02/28/17 14:00 Pulse Rate 108 H 02/28/17 14:00 Respiratory Rate 18 06/18/17 14:00 Blood Pressure 125/83 02/28/17 14:00 O2 Sat by Pulse Oximetry (%) 100 02/28/17 10:35 Constitutional: Yes: No Distress, Calm Cardiovascular: Yes: Regular Rate and Rhythm Respiratory: Yes: Poor Air Entry, Rhonchi Gastrointestinal: Yes: Normal Bowel Sounds, Soft Musculoskeletal: Yes: Other Extremities: Yes: Other Neurological: Yes: Alert Psychiatric: Yes: Alert Labs: CBC, BMP 02/28/17 05:15 02/28/17 05:15 INR, PTT INR 1.14 (0.82-1.09) 02/23/17 23:00 Assessment/Plan Seizures Abdominal distention Sepsis Hypoglycemia lactic acidosis fever aspiration pneumonia plan continue abx patient improving no new issues patient now afebrile rest ct as per icu conside restarting feeds will decide on abx tomorrow cc time 40 min
[2017-02-28] MEDS ORDERED: MAGNESIUM SULF 50% (8.12 MEQ/2 ML-1 GM VIAL) IVPB ONE (17:00)
--- NOTE | 2017-02-28 17:15 | PN ---
Physical Exam: SUBJECTIVE: Patient seen and examined in ICU. No reports of vomiting. Events: - Low grade fever today, BP stable OBJECTIVE: Vital Signs Period Temp Pulse Resp BP Sys/Ascencio Pulse Ox Last 24 Hr 97.4 F-100.3 F 88-119 18-24 99-133/57-92 100-100 PE Neuro: no verbal, moans, does not follow commands, severe MR, awake Pulm: rhonchi at bases + NC CV: s1 s2 rrr no mrg Abd: s nt nd + bs : + [place] Ext: upper and lower contractures Laboratory Results - last 24 hr 02/28/17 02/28/17 05:15 05:15 WBC 9.1 RBC 3.36 L Hgb 9.9 L Hct 29.4 L MCV 87.5 MCHC 33.7 RDW 18.1 H Plt Count 340 D MPV 8.2 Sodium 139 Potassium 3.7 Chloride 101 Carbon Dioxide 30 Anion Gap 8 BUN 9 Creatinine 0.3 L Random Glucose 89 Calcium 7.8 L Phosphorus 2.9 Magnesium 1.7 L Active Medications Generic Name Dose Route Start Last Admin Trade Name Freq PRN Reason Stop Dose Admin Acetaminophen 650 mg 02/26/17 16:14 02/26/17 17:00 Tylenol - PO 650 mg Q6H PRN Administration FEVER OR PAIN Bisacodyl 10 mg 02/25/17 09:05 02/28/17 09:00 Dulcolax Suppository - RC 10 mg DAILY PRN Administration CONSTIPATION Enoxaparin Sodium 40 mg 02/25/17 10:00 02/28/17 08:59 Lovenox - SQ 40 mg DAILY [facility] Administration Famotidine/Sodium Chloride 50 mls @ 100 mls/hr 02/25/17 10:00 02/28/17 09:00 Pepcid 20 Mg Premixed Ivpb - IVPB 100 mls/hr BID [facility] Administration Piperacillin Sod/Tazobactam Sod 50 mls @ 100 mls/hr 02/25/17 10:00 02/28/17 17: 03 Zosyn 3.375gm Ivpb (Pre-Docked) IVPB 100 mls/hr Q8H-IV [facility] Administration Protocol Clindamycin Phosphate 50 mls @ 100 mls/hr 02/25/17 15:30 02/28/17 14:25 Cleocin 600 Mg Premix Ivpb - IVPB 100 mls/hr Q6H-IV [facility] Administration Amino Acids 1,000 mls @ 42 mls/hr 02/26/17 18:15 02/28/17 06:14 Clinimix - IV 42 mls/hr Q12H [facility] Administration Levetiracetam 500 mg 02/25/17 10:00 02/28/17 08:59 Keppra Injection - IVPB 500 mg BID [facility] Administration Lorazepam 0.5 mg 02/25/17 09:05 Ativan Injection - IVPUSH Q6H-IV PRN MUSCLE SPASMS Ondansetron HCl 4 mg 02/25/17 09:05 Zofran Injection IVPB Q6H PRN NAUSEA Polyethylene Glycol 17 gm 02/25/17 10:00 02/28/17 08:59 Miralax (For Daily Use) - PO Not Given DAILY [facility] Microbiology 02/23/17 23:00 Blood - Peripheral Venous Blood Culture - Preliminary NO GROWTH OBTAINED AFTER 96 HOURS, INCUBATION TO CONTINUE FOR 1 DAYS. 02/23/17 23:00 Blood - Peripheral Venous Blood Culture - Preliminary NO GROWTH OBTAINED AFTER 96 HOURS, INCUBATION TO CONTINUE FOR 1 DAYS. 02/22/17 10:42 Blood - Peripheral Venous Blood Culture - Final NO GROWTH AFTER 5 DAYS INCUBATION 02/22/17 10:40 Blood - Peripheral Venous Blood Culture - Final NO GROWTH AFTER 5 DAYS INCUBATION 02/24/17 07:00 Urine - Urine Clean Catch Urine Culture - Final 02/21/17 08:50 Blood - Peripheral Venous Blood Culture - Final NO GROWTH AFTER 5 DAYS INCUBATION 02/21/17 08:50 Blood - Peripheral Venous Blood Culture - Final Staphylococcus Capitis 02/21/17 10:21 Urine - Urine - Catheterized Urine Culture - Final Assessment: 51 [address] [facility] female of 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 Plan: 1. Severe sepsis d/t aspiration PNA vs UTI - Sepsis resolving - CXR: R base density - Zosyn (day 5) Clinda (day 4) s/p Vanco 02/22 2. Acute on chronic seizures - Keppra 500mg q12 - Ativan 0.5mg q6hr 3. Chronic constipation - Maintain bowel regimen 4. Functional quadriplegia - D/t Severe MR underlying neurological disorders 5 Nutrition/severe calorie malnutrition - [place] dysphasia pureed diet with endure to thin food, RN aware of how to feed d/w mother and Cornelius aids - Clinimix gtt 6. Hypoglycemia - Blood sugar stable 7. DVT ppx - Lovenox 40mg Dispo: - Transfer to floor Visit type - Emergency Visit Emergency Visit: Yes ED Registration Date: 02/21/17 Care time: The patient presented to the Emergency Department on the above date and was hospitalized for further evaluation of their emergent condition. - New Patient This patient is new to me today: No - Critical Care Critical Care patient: No
[2017-03-01] MEDS: CLINDAMYCIN 600MG PREMIX IVPB 50 ML IVPB SCH ×3 (02:18→17:23)
[2017-03-01] MEDS: PIPERACILLIN/TAZOB 3.375 GM 50 ML IVPB SCH ×2 (02:19→10:39)
[2017-03-01] MEDS: AMINO ACIDS 4.25%/D5W 1,000 ML IV SCH (06:13)
[2017-03-01 06:26] LABS: BASOPHIL 0.3 % (0-2.0); EOSINOPHIL 2.4 % (0-4.5); MCH 29.9 pg (25.7-33.7); MCHC 34.4 g/dl (32.0-36.0); MEAN PLT VOLUME 7.6 fl (7.5-11.1); PLATELET COUNT 444 K/MM3 (134-434); RDW 18.2 % (11.6-15.6); WHITE BLOOD COUNT 8.1 K/mm3 (4.0-10.0)
[2017-03-01 06:44] LABS: ANION GAP 5 (8-16); CO2 32 mmol/L (21-32); CREATININE 0.3 mg/dL (0.55-1.02); GLUCOSE,RANDOM 99 mg/dL (74-106); MAGNESIUM 2.2 mg/dL (1.8-2.4)
--- NOTE | 2017-03-01 07:04 | PN ---
Physical Exam: SUBJECTIVE: Patient seen and examined. awake, alert in bed, intermittently smiles and laughs. pt on her period OBJECTIVE: Vital Signs Period Temp Pulse Resp BP Sys/Ascencio Pulse Ox Last 24 Hr 99.0 F-100 F 78-110 12-21 94-128/62-96 100-100 GENERAL: The patient is awake in no acute distress. contracted in bed EYES: PERRL, sclera anicteric, conjunctiva clear ENT: moist mucous membranes. LUNGS: rhonchi, quiet at bases. no wheezing, no accessory muscle use. HEART: Regular rhythm and rate, S1, S2 without murmur, rub or gallop. ABDOMEN: Soft, nontender, nondistended, hypoactive bowel sounds EXTREMITIES: + radial pulses, warm, well-perfused, all extremities contracted, severe scoliosis of the spine, +edema in b/l feet NEUROLOGICAL: pt is nonverbal/noncommunicative, profound MR Laboratory Results - last 24 hr 02/28/17 03/01/17 03/01/17 05:15 05:10 05:10 WBC 8.1 RBC 3.17 L Hgb 9.5 L Hct 27.6 L MCV 87.0 MCHC 34.4 RDW 18.2 H Plt Count 444 H D MPV 7.6 Neutrophils % 74.0 Lymphocytes % 12.2 D Monocytes % 11.1 H Eosinophils % 2.4 D Basophils % 0.3 Sodium 139 137 Potassium 3.7 3.6 Chloride 101 100 Carbon Dioxide 30 32 Anion Gap 8 5 L BUN 9 9 Creatinine 0.3 L 0.3 L Random Glucose 89 99 Calcium 7.8 L 8.0 L Phosphorus 2.9 Magnesium 1.7 L 2.2 D Active Medications Generic Name Dose Route Start Last Admin Trade Name Freq PRN Reason Stop Dose Admin Acetaminophen 650 mg 02/26/17 16:14 02/26/17 17:00 Tylenol - PO 650 mg Q6H PRN Administration FEVER OR PAIN Bisacodyl 10 mg 02/25/17 09:05 02/28/17 09:00 Dulcolax Suppository - RC 10 mg DAILY PRN Administration CONSTIPATION Enoxaparin Sodium 40 mg 02/25/17 10:00 02/28/17 08:59 Lovenox - SQ 40 mg DAILY [facility] Administration Famotidine/Sodium Chloride 50 mls @ 100 mls/hr 02/25/17 10:00 02/28/17 21:40 Pepcid 20 Mg Premixed Ivpb - IVPB 100 mls/hr BID [facility] Administration Piperacillin Sod/Tazobactam Sod 50 mls @ 100 mls/hr 02/25/17 10:00 03/01/17 02: 19 Zosyn 3.375gm Ivpb (Pre-Docked) IVPB 100 mls/hr Q8H-IV [facility] Administration Protocol Clindamycin Phosphate 50 mls @ 100 mls/hr 02/25/17 15:30 03/01/17 02:18 Cleocin 600 Mg Premix Ivpb - IVPB 100 mls/hr Q6H-IV [facility] Administration Amino Acids 1,000 mls @ 42 mls/hr 02/26/17 18:15 03/01/17 06:13 Clinimix - IV Not Given Q12H [facility] Levetiracetam 500 mg 02/25/17 10:00 02/28/17 21:40 Keppra Injection - IVPB 500 mg BID [facility] Administration Lorazepam 0.5 mg 02/25/17 09:05 Ativan Injection - IVPUSH Q6H-IV PRN MUSCLE SPASMS Ondansetron HCl 4 mg 02/25/17 09:05 Zofran Injection IVPB Q6H PRN NAUSEA Polyethylene Glycol 17 gm 02/25/17 10:00 02/28/17 08:59 Miralax (For Daily Use) - PO Not Given DAILY [facility] Microbiology 02/23/17 23:00 Blood - Peripheral Venous Blood Culture - Final NO GROWTH AFTER 5 DAYS INCUBATION 02/23/17 23:00 Blood - Peripheral Venous Blood Culture - Final NO GROWTH AFTER 5 DAYS INCUBATION 02/22/17 10:42 Blood - Peripheral Venous Blood Culture - Final NO GROWTH AFTER 5 DAYS INCUBATION 02/22/17 10:40 Blood - Peripheral Venous Blood Culture - Final NO GROWTH AFTER 5 DAYS INCUBATION 02/24/17 07:00 Urine - Urine Clean Catch Urine Culture - Final 02/21/17 08:50 Blood - Peripheral Venous Blood Culture - Final NO GROWTH AFTER 5 DAYS INCUBATION 02/21/17 08:50 Blood - Peripheral Venous Blood Culture - Final Staphylococcus Capitis 02/21/17 10:21 Urine - Urine - Catheterized Urine Culture - Final ASSESSMENT/PLAN: 51 yr old woman with severe static encephalopathy, chronic spastic tetraparesis , and seizure disorder from [place] admitted for seizures found to have fever , hypoxia, and episode hypotension non-responsive to fluid bolus on med/surg floor transferred for concern of septic shock. Infectious Disease sepsis from likely aspiration pna zosyn 3.375gm IVPB q8hr + cleocin q6hr [id number]-cxed: Bld cx NGTD, urine cx NGTD, can likely monitor off abx, defer to ID for management Renal florence in place for I&O monitoring, can dc today Pulmonary saturing well on nasal cannula left lower infiltrate - likely aspiration pna GI hx of chronic constipation bowel regimen with dulcolax suppository prn zofran 4mg prn IVPB q6hr - completed 7 days for pna pt tolerating po well today, reassessed by albaro king this morning. can d/c clinimix since she is eating well Neurological seizure d/o [id number] IVPB BID [facility]win ativan q6h prn functional quadraplegia consult: Dr. bo DVT: lovenox 40sq diet; tolerating well with pureed thickened Dispo: patient's condition has improved and she can be monitored further on Med/ surg floor Visit type - Emergency Visit Emergency Visit: No - New Patient This patient is new to me today: No - Critical Care Critical Care patient: Yes Total Critical Care Time (in minutes): 36 Critical Care Statement: The care of this patient involved high complexity decision making to prevent further life threatening deterioration of the patient 's condition and/or to evalute & treat vital organ system(s) failure or risk of failure.
--- NOTE | 2017-03-01 10:54 | PN ---
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 Diet ordered again on 02/28. Pt reporting to prodrude tongue and not accept fodd, per [facility] NA. Tongue protrusion I believe is baseline for this pt, per conversation with Sp Path at [facility]. Pt more alert, smiling, occasionally vocalizing. Pt accepted PO trials for me, cupping tongue and accepting via cup and tonue. Some anterior spillage/drooling with tongue thrust. Rare brief cough. Continue PO trials, allowing pt time to swallow with each sip/tsp. Monitor Pulmonary status/PO tolerance/sufficient acceptance as she improves.
[2017-03-01] MEDS: levETIRAcetam 500 MG/5 ML INJECTION VIAL IVPB SCH ×2 (11:00→21:28)
[2017-03-01] MEDS: FAMOTIDINE 20 MG/50 ML IVPB 50 ML IVPB SCH ×2 (11:32→21:28)
[2017-03-01] MEDS: ENOXAPARIN NA (PORCINE) 40 MG/0.4 ML DISP.SYRIN SQ SCH (11:32)
[2017-03-01] MEDS: POLYETHYLENE GLYCOL 3350 119 GM BTL PO SCH (12:36)
[2017-03-01] MEDS ORDERED: ACETAMINOPHEN 650 MG SUPP.RECT PR ONE (15:52)
--- NOTE | 2017-03-01 15:55 | PN ---
Teaching Attending Note Name of Resident: Cassidy Simon ATTENDING PHYSICIAN STATEMENT I saw and evaluated the patient. I reviewed the resident's note and discussed the case with the resident. I agree with the resident's findings and plan as documented. SUBJECTIVE: Patient seen and examined in the ICU. NAD on NC O2. No acute events overnight. OBJECTIVE: Intake & Output 02/26/17 02/27/17 02/28/17 03/01/17 23:59 23:59 23:59 23:59 Intake Total 450 1884 1140 325 Output Total 575 1900 1000 525 Balance -125 -16 140 -200 Weight 89 lb 2 oz 90 lb 3.2 oz Last Vital Signs Temp Pulse Resp BP Pulse Ox 97.8 F 98 H 18 110/74 100 03/01/17 14:00 03/01/17 14:00 03/01/17 14:00 03/01/17 14:00 03/01/17 10:00 Active Medications Acetaminophen (Tylenol -) 650 mg PO Q6H PRN PRN Reason: FEVER OR PAIN Last Admin: 02/26/17 17:00 Dose: 650 mg Acetaminophen (Tylenol Suppository -) 650 mg AK ONCE ONE Stop: 03/01/17 15:53 Bisacodyl (Dulcolax Suppository -) 10 mg RC DAILY PRN PRN Reason: CONSTIPATION Last Admin: 02/28/17 09:00 Dose: 10 mg Enoxaparin Sodium (Lovenox -) 40 mg SQ DAILY [facility] Last Admin: 03/01/17 11:32 Dose: 40 mg Famotidine/Sodium Chloride (Pepcid 20 Mg Premixed Ivpb -) 50 mls @ 100 mls/hr IVPB BID [facility] Last Admin: 03/01/17 11:32 Dose: 100 mls/hr Piperacillin Sod/Tazobactam Sod (Zosyn 3.375gm Ivpb (Pre-Docked)) 50 mls @ 100 mls/hr IVPB Q8H-IV DARWIN PRN Reason: Protocol Last Admin: 03/01/17 10:39 Dose: 100 mls/hr Clindamycin Phosphate (Cleocin 600 Mg Premix Ivpb -) 50 mls @ 100 mls/hr IVPB Q6H-IV [facility] Last Admin: 03/01/17 09:50 Dose: 100 mls/hr Amino Acids (Clinimix -) 1,000 mls @ 42 mls/hr IV Q12H [facility] Last Admin: 03/01/17 06:13 Dose: Not Given Levetiracetam (Keppra Injection -) 500 mg IVPB BID [facility] Last Admin: 03/01/17 11:00 Dose: 500 mg Lorazepam (Ativan Injection -) 0.5 mg IVPUSH Q6H-IV PRN PRN Reason: MUSCLE SPASMS Ondansetron HCl (Zofran Injection) 4 mg IVPB Q6H PRN PRN Reason: NAUSEA Polyethylene Glycol (Miralax (For Daily Use) -) 17 gm PO DAILY [facility] Last Admin: 03/01/17 12:36 Dose: 17 gm Gen: NAD at rest Heart: tachycardic, regular Lung: bilateral rhonchi Abd: soft, nontender Ext: no edema Laboratory Results - last 24 hr 03/01/17 03/01/17 05:10 05:10 WBC 8.1 RBC 3.17 L Hgb 9.5 L Hct 27.6 L MCV 87.0 MCHC 34.4 RDW 18.2 H Plt Count 444 H D MPV 7.6 Neutrophils % 74.0 Lymphocytes % 12.2 D Monocytes % 11.1 H Eosinophils % 2.4 D Basophils % 0.3 Sodium 137 Potassium 3.6 Chloride 100 Carbon Dioxide 32 Anion Gap 5 L BUN 9 Creatinine 0.3 L Random Glucose 99 Calcium 8.0 L Magnesium 2.2 D ASSESSMENT AND PLAN: New Onset Seizure UTI Pneumonia Sepsis Elevated LFTs Mental Retardation Cerebral Palsy Functional Quadriplegia - (?) D/C ABX - aspiration precautions - antiepileptics - O2 to keep Spo2 >90% - DVT prophylaxis - can monitor on floor / DC home Dr Alex
[2017-03-01] MEDS: BISACODYL 10 MG SUPP.RECT RC PRN (15:58)
--- NOTE | 2017-03-01 16:27 | PN ---
Progress Note, Physician History of Present Illness: patient just spiked a fever speech and swallow evaluated the patient clinically patient awake and more alert no restlessness - Current Medication List Current Medications: Active Medications Acetaminophen (Tylenol -) 650 mg PO Q6H PRN PRN Reason: FEVER OR PAIN Last Admin: 02/26/17 17:00 Dose: 650 mg Bisacodyl (Dulcolax Suppository -) 10 mg RC DAILY PRN PRN Reason: CONSTIPATION Last Admin: 03/01/17 15:58 Dose: 10 mg Enoxaparin Sodium (Lovenox -) 40 mg SQ DAILY [facility] Last Admin: 03/01/17 11:32 Dose: 40 mg Famotidine/Sodium Chloride (Pepcid 20 Mg Premixed Ivpb -) 50 mls @ 100 mls/hr IVPB BID [facility] Last Admin: 03/01/17 11:32 Dose: 100 mls/hr Piperacillin Sod/Tazobactam Sod (Zosyn 3.375gm Ivpb (Pre-Docked)) 50 mls @ 100 mls/hr IVPB Q8H-IV [facility] PRN Reason: Protocol Last Admin: 03/01/17 10:39 Dose: 100 mls/hr Clindamycin Phosphate (Cleocin 600 Mg Premix Ivpb -) 50 mls @ 100 mls/hr IVPB Q6H-IV [facility] Last Admin: 03/01/17 09:50 Dose: 100 mls/hr Levetiracetam (Keppra Injection -) 500 mg IVPB BID [facility] Last Admin: 03/01/17 11:00 Dose: 500 mg Lorazepam (Ativan Injection -) 0.5 mg IVPUSH Q6H-IV PRN PRN Reason: MUSCLE SPASMS Ondansetron HCl (Zofran Injection) 4 mg IVPB Q6H PRN PRN Reason: NAUSEA Polyethylene Glycol (Miralax (For Daily Use) -) 17 gm PO DAILY [facility] Last Admin: 03/01/17 12:36 Dose: 17 gm - Objective Vital Signs: Vital Signs Temperature 100.1 F H 03/01/17 15:57 Pulse Rate 98 H 03/01/17 14:00 Respiratory Rate 18 03/01/17 14:00 Blood Pressure 110/74 03/01/17 14:00 O2 Sat by Pulse Oximetry (%) 100 03/01/17 10:00 Constitutional: Yes: No Distress, Calm Cardiovascular: Yes: Regular Rate and Rhythm Respiratory: Yes: Regular, Poor Air Entry Gastrointestinal: Yes: Normal Bowel Sounds, Soft Musculoskeletal: Yes: Other Extremities: Yes: Other Neurological: Yes: Alert Labs: CBC, BMP 03/01/17 05:10 03/01/17 05:10 INR, PTT INR 1.14 (0.82-1.09) 02/23/17 23:00 Assessment/Plan Seizures Abdominal distention Sepsis Hypoglycemia lactic acidosis fever aspiration pneumonia plan will stop abx and watch the patient if patient starts spiking then we will have to figure out further watch for any further fevers aspiration precautions rest as per icu cc time 40 min
--- NOTE | 2017-03-01 18:23 | PN ---
Physical Exam: SUBJECTIVE: Patient seen and examined. She is awake, eating slowly. Events: - Tmax 100.1 OBJECTIVE: Vital Signs Period Temp Pulse Resp BP Sys/Ascencio Pulse Ox Last 24 Hr 97.8 F-100.1 F 77-120 12-22 94-128/62-96 100-100 PE Neuro: no verbal, moans, does not follow commands, severe MR, awake Pulm: scattered rhonchi + NC CV: s1 s2 rrr no mrg Abd: s nt nd + bs : + florence Ext: upper and lower contractures Laboratory Results - last 24 hr 03/01/17 03/01/17 05:10 05:10 WBC 8.1 RBC 3.17 L Hgb 9.5 L Hct 27.6 L MCV 87.0 MCHC 34.4 RDW 18.2 H Plt Count 444 H D MPV 7.6 Neutrophils % 74.0 Lymphocytes % 12.2 D Monocytes % 11.1 H Eosinophils % 2.4 D Basophils % 0.3 Sodium 137 Potassium 3.6 Chloride 100 Carbon Dioxide 32 Anion Gap 5 L BUN 9 Creatinine 0.3 L Random Glucose 99 Calcium 8.0 L Magnesium 2.2 D Active Medications Generic Name Dose Route Start Last Admin Trade Name Freq PRN Reason Stop Dose Admin Acetaminophen 650 mg 02/26/17 16:14 02/26/17 17:00 Tylenol - PO 650 mg Q6H PRN Administration FEVER OR PAIN Bisacodyl 10 mg 02/25/17 09:05 03/01/17 15:58 Dulcolax Suppository - RC 10 mg DAILY PRN Administration CONSTIPATION Enoxaparin Sodium 40 mg 02/25/17 10:00 03/01/17 11:32 Lovenox - SQ 40 mg DAILY [facility] Administration Famotidine/Sodium Chloride 50 mls @ 100 mls/hr 02/25/17 10:00 03/01/17 11:32 Pepcid 20 Mg Premixed Ivpb - IVPB 100 mls/hr BID [facility] Administration Levetiracetam 500 mg 02/25/17 10:00 03/01/17 11:00 Keppra Injection - IVPB 500 mg BID [facility] Administration Lorazepam 0.5 mg 02/25/17 09:05 Ativan Injection - IVPUSH Q6H-IV PRN MUSCLE SPASMS Ondansetron HCl 4 mg 02/25/17 09:05 Zofran Injection IVPB Q6H PRN NAUSEA Polyethylene Glycol 17 gm 02/25/17 10:00 03/01/17 12:36 Miralax (For Daily Use) - PO 17 gm DAILY [facility] Administration Antibiotics: - Zosyn (days 5) - Clinda (days 4) - Vanco 02/22 Assessment: 51 [address] female of 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 Plan: 1. Severe sepsis d/t aspiration PNA vs UTI - Sepsis resolving - CXR: R base density - Stop antibiotics and observe - Discontinue florence 2. Acute on chronic seizures - Keppra 500mg q12 - Ativan 0.5mg q6hr 3. Chronic constipation - Maintain bowel regimen 4. Functional quadriplegia - D/t Severe MR underlying neurological disorders 5 Nutrition/severe calorie malnutrition - Dysphasia pureed diet with endure to thin food - Clinimix gtt 6. Hypoglycemia - Blood sugar stable 7. DVT ppx - Lovenox 40mg Dispo: - Transfer to floor Visit type - Emergency Visit Emergency Visit: Yes ED Registration Date: 02/21/17 Care time: The patient presented to the Emergency Department on the above date and was hospitalized for further evaluation of their emergent condition. - New Patient This patient is new to me today: No - Critical Care Critical Care patient: No
[2017-03-02 06:30] LABS: BASOPHIL 0.4 % (0-2.0); EOSINOPHIL 2.2 % (0-4.5); MCH 29.1 pg (25.7-33.7); MEAN CELL VOLUME 88.2 fl (80-96); MEAN PLT VOLUME 7.5 fl (7.5-11.1); NEUTROPHILS 70.2 % (42.8-82.8); PLATELET COUNT 520 K/MM3 (134-434); RDW 17.8 % (11.6-15.6); WHITE BLOOD COUNT 9.3 K/mm3 (4.0-10.0)
[2017-03-02 06:57] LABS: ANION GAP 6 (8-16); CALCIUM 8.9 mg/dL (8.5-10.1); CO2 33 mmol/L (21-32); CREATININE 0.3 mg/dL (0.55-1.02); GLUCOSE,RANDOM 89 mg/dL (74-106); MAGNESIUM 2.3 mg/dL (1.8-2.4)
--- NOTE | 2017-03-02 08:58 | PN ---
Physical Exam: SUBJECTIVE: Patient seen and examined. afebrile, normotensive, pt had some gurgling with feeding this morning. pt was repositioned leaning onto right side to minimize pt's normally hyperextended neck. less gurgling and no coughing in this position. Aid from [facility] at bedside given updated information about food consistency. OBJECTIVE: Vital Signs Period Temp Pulse Resp BP Sys/Ascencio Pulse Ox Last 24 Hr 97.8 F-100.7 F 85-120 14-25 91-122/59-86 100-100 GENERAL: The patient is awake in no acute distress. contracted in bed, examined while eating EYES: PERRL, sclera anicteric, conjunctiva clear ENT: moist mucous membranes. LUNGS: rhonchi, quiet at bases. no wheezing, no accessory muscle use. HEART: Regular rhythm and rate, S1, S2 without murmur, rub or gallop. ABDOMEN: Soft, nontender, nondistended, normoactive bowel sounds EXTREMITIES: + radial pulses, warm, well-perfused, all extremities contracted, severe scoliosis of the spine, +edema in b/l feet NEUROLOGICAL: pt is nonverbal/noncommunicative, profound MR Laboratory Results - last 24 hr 03/02/17 03/02/17 05:15 05:15 WBC 9.3 RBC 3.68 Hgb 10.7 D Hct 32.5 D MCV 88.2 MCHC 33.0 RDW 17.8 H Plt Count 520 H MPV 7.5 Neutrophils % 70.2 Lymphocytes % 14.3 Monocytes % 12.9 H Eosinophils % 2.2 Basophils % 0.4 Sodium 140 Potassium 4.4 D Chloride 101 Carbon Dioxide 33 H Anion Gap 6 L BUN 7 D Creatinine 0.3 L Random Glucose 89 Calcium 8.9 Phosphorus 3.0 Magnesium 2.3 Active Medications Generic Name Dose Route Start Last Admin Trade Name Freq PRN Reason Stop Dose Admin Acetaminophen 650 mg 02/26/17 16:14 02/26/17 17:00 Tylenol - PO 650 mg Q6H PRN Administration FEVER OR PAIN Bisacodyl 10 mg 02/25/17 09:05 03/01/17 15:58 Dulcolax Suppository - RC 10 mg DAILY PRN Administration CONSTIPATION Enoxaparin Sodium 40 mg 02/25/17 10:00 03/01/17 11:32 Lovenox - SQ 40 mg DAILY [facility] Administration Famotidine/Sodium Chloride 50 mls @ 100 mls/hr 02/25/17 10:00 03/01/17 21:28 Pepcid 20 Mg Premixed Ivpb - IVPB 100 mls/hr BID [facility] Administration Levetiracetam 500 mg 02/25/17 10:00 03/01/17 21:28 Keppra Injection - IVPB 500 mg BID [facility] Administration Lorazepam 0.5 mg 02/25/17 09:05 Ativan Injection - IVPUSH Q6H-IV PRN MUSCLE SPASMS Ondansetron HCl 4 mg 02/25/17 09:05 Zofran Injection IVPB Q6H PRN NAUSEA Polyethylene Glycol 17 gm 02/25/17 10:00 03/01/17 12:36 Miralax (For Daily Use) - PO 17 gm DAILY [facility] Administration ASSESSMENT/PLAN: 51 yr old woman with severe static encephalopathy, chronic spastic tetraparesis , and seizure disorder from [place] admitted for seizures found to have fever , hypoxia, and episode hypotension non-responsive to fluid bolus on med/surg floor transferred for concern of septic shock. Infectious Disease improved, afebrile overnight Renal florence removed Pulmonary saturing well, nasal cannula prn left lower infiltrate cleared on chest xray GI hx of chronic constipation bowel regimen with dulcolax suppository prn pt tolerating po well today, education and information conveyed to [place] staff member at bedside Neurological seizure d/o - no further episodes of seizures [id number] po BID brandee ativan q6h prn functional quadraplegia consult: Dr. bo DVT: lovenox 40sq diet; tolerating well with pureed thickened Dispo: patient's condition has improved and she can be monitored further on Med/ surg floor Visit type - Emergency Visit Emergency Visit: No - New Patient This patient is new to me today: No - Critical Care Critical Care patient: Yes Total Critical Care Time (in minutes): 36 Critical Care Statement: The care of this patient involved high complexity decision making to prevent further life threatening deterioration of the patient 's condition and/or to evalute & treat vital organ system(s) failure or risk of failure.
[2017-03-02] MEDS: POLYETHYLENE GLYCOL 3350 119 GM BTL PO SCH (10:04)
[2017-03-02] MEDS: levETIRAcetam 500 MG/5 ML INJECTION VIAL IVPB SCH (10:04)
[2017-03-02] MEDS: FAMOTIDINE 20 MG/50 ML IVPB 50 ML IVPB SCH (10:07)
[2017-03-02] MEDS: ENOXAPARIN NA (PORCINE) 40 MG/0.4 ML DISP.SYRIN SQ SCH (10:07)
--- NOTE | 2017-03-02 10:15 | DS ---
Physical Exam: SUBJECTIVE: Patient seen and examined, no fevers this AM. No issues overnight Events: - Voiding freely following d/c florence OBJECTIVE: Vital Signs Period Temp Pulse Resp BP Sys/Ascencio Pulse Ox Last 24 Hr 97.8 F-100.7 F 85-120 14-25 91-122/59-86 100-100 PE Neuro: no verbal, moans, does not follow commands, severe MR, awake Pulm: scattered rhonchi CV: s1 s2 rrr no mrg Abd: s nt nd + bs Ext: upper and lower contractures Laboratory Results - last 24 hr 03/02/17 03/02/17 05:15 05:15 WBC 9.3 RBC 3.68 Hgb 10.7 D Hct 32.5 D MCV 88.2 MCHC 33.0 RDW 17.8 H Plt Count 520 H MPV 7.5 Neutrophils % 70.2 Lymphocytes % 14.3 Monocytes % 12.9 H Eosinophils % 2.2 Basophils % 0.4 Sodium 140 Potassium 4.4 D Chloride 101 Carbon Dioxide 33 H Anion Gap 6 L BUN 7 D Creatinine 0.3 L Random Glucose 89 Calcium 8.9 Phosphorus 3.0 Magnesium 2.3 HOSPITAL COURSE: Date of Admission:02/21/17 Date of Discharge: 03/02/17 Minutes to complete discharge: 37 Discharge Summary Reason For Visit: STATUS EPILEPTICUS Current Active Problems Cerebral palsy (Acute) DVT prophylaxis (Acute) Elevated liver enzymes (Acute) Elevated transaminase level (Acute) Fever (Acute) Functional quadriplegia (Acute) Hypotension (Acute) Hypothermia (Acute) Mental retardation (Acute) Seizures (Acute) Status epilepticus (Acute) Thrombocytopenia (Acute) Hospital Course: Initial Hospital Course: Briefly, this 51 year old female resident of the [facility] with a history of profound mental retardation, cerebral palsy with spastic quadriplegia, scoliosis, epilepsy (maintained on diazepam 15mg po bid), and chronic constipation brought in to the ED via EMS following multiple seizures. She had two tonic-clonic seizures en route and was given 5mg Versed IM by EMS. She had another witnessed seizure in the ED and was given 2mg Ativan IVP and 1g Keppra IVPB without further seizure episodes. 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 Plan: 1. Severe sepsis d/t aspiration PNA vs UTI - Sepsis resolving - Off antibiotics, no further fevers observed on discharge 2. Acute on chronic seizures - No further seizures noted - Started on Keppra 500mg q12 oral solution, to maintain - Ativan 0.5mg q6hr PRN 3. Chronic constipation - Maintain bowel regimen 4. Functional quadriplegia - D/t Severe MR underlying neurological disorders 5 Nutrition/severe calorie malnutrition - Dysphasia pureed diet with endure to thin food 6. Hypoglycemia - Blood sugar stable Dispo: - Return to Dr. Ryne Cornelius accepted pt Condition: Stable - Instructions Diet, Activity, Other Instructions: Please return to the ED for any new, persistent, or worsening symptoms. Follow up with your PCP in 1 week Take medications as directed on discharge medication list New med: keppra 500mg oral solution BID Disposition[facility] - Home Medications Comprehensive Discharge Medication List: Current Medications Generic Name Dose Route Start Last Admin Trade Name Freq PRN Reason Stop Dose Admin Acetaminophen 650 mg 02/26/17 16:14 02/26/17 17:00 Tylenol - PO 650 mg Q6H PRN Administration FEVER OR PAIN Bisacodyl 10 mg 02/25/17 09:05 03/01/17 15:58 Dulcolax Suppository - RC 10 mg DAILY PRN Administration CONSTIPATION Enoxaparin Sodium 40 mg 02/25/17 10:00 03/02/17 10:07 Lovenox - SQ 40 mg DAILY [facility] Administration Levetiracetam 500 mg 03/02/17 22:00 Keppra Oral Solution - PO BID D[facility]WIN Lorazepam 0.5 mg 02/25/17 09:05 Ativan Injection - IVPUSH Q6H-IV PRN MUSCLE SPASMS Ondansetron HCl 4 mg 02/25/17 09:05 Zofran Injection IVPB Q6H PRN NAUSEA Polyethylene Glycol 17 gm 02/25/17 10:00 03/02/17 10:04 Miralax (For Daily Use) - PO 17 gm DAILY [facility] Administration This patient is new to me today: No Emergency Visit: Yes ED Registration Date: 02/21/17 Care time: The patient presented to the Emergency Department on the above date and was hospitalized for further evaluation of their emergent condition. Critical Care patient: No - Discharge Referral Referred to [facility] Med P.C.: No
[2017-03-02 10:26] VITALS: PULSE 111
--- NOTE | 2017-03-02 10:34 | PN ---
Progress Note, [employer] REPA[employer]ER - Note Progress Note: Selected Entries 02/28/17 02/28/17 03/01/17 19:18 22:00 00:00 Breakfast Lunch Supper 25% 25% Temperature 99.9 F H 03/01/17 03/01/17 03/01/17 02:00 04:00 06:00 Breakfast Lunch Supper Temperature 99.3 F 99.1 F 99.0 F 03/01/17 03/01/17 03/01/17 10:00 10:59 14:00 Breakfast 25% Lunch 25% Supper Temperature 98.3 F 97.8 F 03/01/17 03/01/17 03/01/17 15:57 18:00 19:00 Breakfast Lunch Supper Temperature 100.1 F H 100.1 F H 100.3 F H 03/01/17 03/01/17 03/02/17 21:00 23:00 03:00 Breakfast Lunch Supper Temperature 100.3 F H 100.7 F H 99.6 F 03/02/17 03/02/17 03/02/17 05:00 10:11 10:25 Breakfast 50% Lunch Supper Temperature 98.8 F 97 F L Laboratory Tests 03/01/17 03/02/17 05:10 05:15 WBC 8.1 9.3 Reviewed head position/swallowing safety with staff. Pt did well with dinner last night. Miralax can not be mixed in thickened liquid, as chemically it turns into a thin liquid. Pending discharge.
[2017-03-02 12:54] VITALS: BP 125/78; TEMP 99.8
--- NOTE | 2017-03-02 13:02 | PN ---
Teaching Attending Note Name of Resident: Cassidy Simon ATTENDING PHYSICIAN STATEMENT I saw and evaluated the patient. I reviewed the resident's note and discussed the case with the resident. I agree with the resident's findings and plan as documented. SUBJECTIVE: Patient seen and examined in the ICU. NAD on NC O2. No acute events overnight. Intake & Output 02/27/17 02/28/17 03/01/17 03/02/17 23:59 23:59 23:59 23:59 Intake Total 1884 1140 903 200 Output Total 1900 1000 525 450 Balance -16 140 378 -250 Weight 89 lb 2 oz 90 lb 3.2 oz 79 lb 4.8 oz Last Vital Signs Temp Pulse Resp BP Pulse Ox 99.8 F H 111 H 28 H 125/78 100 03/02/17 12:00 03/02/17 12:00 03/02/17 12:00 03/02/17 12:00 03/02/17 09:37 Active Medications Acetaminophen (Tylenol -) 650 mg PO Q6H PRN PRN Reason: FEVER OR PAIN Last Admin: 02/26/17 17:00 Dose: 650 mg Bisacodyl (Dulcolax Suppository -) 10 mg RC DAILY PRN PRN Reason: CONSTIPATION Last Admin: 03/01/17 15:58 Dose: 10 mg Enoxaparin Sodium (Lovenox -) 40 mg SQ DAILY [facility]WIN Last Admin: 03/02/17 10:07 Dose: 40 mg Levetiracetam (Keppra Oral Solution -) 500 mg PO BID DARWIN Lorazepam (Ativan Injection -) 0.5 mg IVPUSH Q6H-IV PRN PRN Reason: MUSCLE SPASMS Ondansetron HCl (Zofran Injection) 4 mg IVPB Q6H PRN PRN Reason: NAUSEA Polyethylene Glycol (Miralax (For Daily Use) -) 17 gm PO DAILY DARWIN Last Admin: 03/02/17 10:04 Dose: 17 gm Gen: NAD at rest Heart: S1S2, regular Lung: bilateral rhonchi Abd: soft, nontender Ext: no edema Laboratory Results - last 24 hr 03/02/17 03/02/17 05:15 05:15 WBC 9.3 RBC 3.68 Hgb 10.7 D Hct 32.5 D MCV 88.2 MCHC 33.0 RDW 17.8 H Plt Count 520 H MPV 7.5 Neutrophils % 70.2 Lymphocytes % 14.3 Monocytes % 12.9 H Eosinophils % 2.2 Basophils % 0.4 Sodium 140 Potassium 4.4 D Chloride 101 Carbon Dioxide 33 H Anion Gap 6 L BUN 7 D Creatinine 0.3 L Random Glucose 89 Calcium 8.9 Phosphorus 3.0 Magnesium 2.3 ASSESSMENT AND PLAN: New Onset Seizure UTI Pneumonia Sepsis Elevated LFTs Mental Retardation Cerebral Palsy Functional Quadriplegia - Monitor off ABX - aspiration precautions - antiepileptics - O2 to keep Spo2 >90% - DVT prophylaxis - D/C Dr Alex
[2017-03-02] MEDS ORDERED: levETIRAcetam 500 MG/5 ML ORAL SOLUTION (UNIT-DOSE CUPS) PO SCH (22:00)
== END 2017-03-02 14:28 | DRG 720 ==
LOC: JER 08:10 → JERBED 12:16 → J8W 19:36 → JICU 02-23 21:53
PROVIDERS: ADMIT Internal Medicine; ATTEND Nurse Practitioner Acute Care
PROC: 0D9670Z Drainage of Stomach with Drainage Device, Via Natural or Artificial Opening (ICD-10-PCS; principal; 2017-02-22)
PROC: 3E0336Z Introduction of Nutritional Substance into Peripheral Vein, Percutaneous Approach (ICD-10-PCS; 2017-02-24)
DX: A41.9 Sepsis, unspecified organism (principal); J69.0 Pneumonitis due to inhalation of food and vomit; G80.9 Cerebral palsy, unspecified; F73 Profound intellectual disabilities; R53.2 Functional quadriplegia; E43 Unspecified severe protein-calorie malnutrition; Z68.1 Body mass index [BMI] 19.9 or less, adult; K59.09 Other constipation; G93.49 Other encephalopathy; Q66.9 Congenital deformity of feet, unspecified; Q65.9 Congenital deformity of hip, unspecified; M41.9 Scoliosis, unspecified; G40.909 Epilepsy, unspecified, not intractable, without status epilepticus; E16.2 Hypoglycemia, unspecified; R74.0 Nonspecific elevation of levels of transaminase and lactic acid dehydrogenase [LDH]; R68.0 Hypothermia, not associated with low environmental temperature
CPT/HCPCS: 36415; 70450-TC; 71010-TC; 74000-TC; 74020-TC; 76700-TC; 80048; 80053; 80076; 81003; 81015; 82550; 82553; 83605; 83735; 84100; 84484; 85025; 85027; 85610; 85730; 86704; 86706; 86708; 86850; 86900; 86901; 87040; 87086; 87186; 87340; 93005; 93010; 99284-25; G0480

== ENCOUNTER 2017-06-13 01:58 | Emergency (ER) | payer OTHER ==
--- NOTE | 2017-06-13 02:07 | PDOC ---
History of Present Illness - General Stated Complaint: VOMITING Time Seen by Provider: 06/13/17 02:07 Past History - Travel Traveled outside of the country in the last 30 days: No Close contact w/someone who was outside of country & ill: No - Past Medical History Allergies/Adverse Reactions: Allergies Allergy/AdvReac Type Severity Reaction Status Date / Time No Known Allergies Allergy Verified 06/13/17 02:16 Home Medications: Ambulatory Orders Bisacodyl [Biscolax] 10 mg RC DAILY PRN 02/21/17 Calcium 500Mg/Vit-D 200 Units [Os-Hitesh 500+D -] 1 combo PO BID 02/21/17 Cetirizine HCl [24Hour Allergy] 10 mg PO DAILY 02/21/17 Chlorhexidine Gluconate 30 ml MM BID 02/21/17 Diazepam [Valium] 15 mg PO BID 02/21/17 Ranitidine [Zantac -] 150 mg PO BID 02/21/17 Sennosides [Senna] 2 tab PO DAILY 02/21/17 Levetiracetam [Keppra Oral Solution -] 500 mg PO BID #1 bottle 03/02/17 Baclofen 10 mg PO TID 06/13/17 Diazepam [Diastat Acudial] 10 mg RC PRN PRN 06/13/17 Seizures: Yes (EPILEPSY; NO SEIZURE SINCE 1994) Thyroid Disease: (EXOTROPIA/CONSTIPATION) - Immunization History Immunization Up to Date: Yes - Suicide/Smoking/Psychosocial Hx Smoking History: Never smoked Number of Cigarettes Smoked Daily: 0 Hx Alcohol Use: No Drug/Substance Use Hx: No Substance Use Type: None Review of Systems - Review of Systems Able to Perform ROS?: No Comments:: 06/13/17 03:15 Pt with MR and developmental disorders cant answer Qs and her aide from the home doesn't really know her either. *Physical Exam - Physical Exam General Appearance: Yes: Nourished, Thin HEENT: positive: EOMI, RUDDY, TMs Normal, Pharynx Normal Neck: positive: Trachea midline, Supple Respiratory/Chest: positive: Lungs Clear, Normal Breath Sounds. negative: Respiratory Distress Cardiovascular: positive: Regular Rhythm, Regular Rate, S1, S2 Gastrointestinal/Abdominal: positive: Increased Bowel Sounds, Distended, Other ( tympanitic to percussion; pt may have obstruction) Musculoskeletal: positive: Other (contractures in all 4 extemities. Pt flexed like a pretzel) Extremity: positive: Normal Capillary Refill Integumentary: positive: Dry, Warm Neurologic: positive: Alert Procedures - Additional Procedures Additional Procedures: other (NG suction; followed by oral contrast for CT scan installation.) ED Treatment Course - LABORATORY CBC & Chemistry Diagram: 06/13/17 02:50 06/13/17 02:50 Comment: labs normal; lactic acid normal; alk phos elevated; pt will get a sono GB Medical Decision Making - Medical Decision Making 06/13/17 05:03 Pt comes from a [facility]. SHe had vomiting. NO fever and no chills. Abd was distended in the ER. NGT placed and hooked to suction. Later we insilled oral contrast. Pt is going for CT scan at this time to r/o obstruction colitis, etc. Pt will be sent for GB sono in the AM when the sono dept opens. 06/13/17 07:[address] still penidng; sono pending signed out to the day attending. *DC/Admit/Observation/Transfer Diagnosis at time of Disposition: Constipation - Discharge Dispostion Disposition: [facility] Condition at time of disposition: Good - Referrals Referrals: James Michele Jr [Non Staff, Medical] - - Patient Instructions Printed Discharge Instructions: DI for Constipation Additional Instructions: Please start a bowel regiment for constipation. Please return to the ED with any further complaints.
[2017-06-13 02:45] VITALS: BMI 16.6
[2017-06-13 03:01] LABS: BASOPHIL 0.6 % (0-2.0); EOSINOPHIL 4.3 % (0-4.5); MCH 28.7 pg (25.7-33.7); MCHC 33.4 g/dl (32.0-36.0); MEAN CELL VOLUME 85.9 fl (80-96); MEAN PLT VOLUME 8.5 fl (7.5-11.1); NEUTROPHILS 61.4 % (42.8-82.8); PLATELET COUNT 235 K/MM3 (134-434); RDW 17.7 % (11.6-15.6); WHITE BLOOD COUNT 7.1 K/mm3 (4.0-10.0)
[2017-06-13 03:13] LABS: INR 1.03 (0.82-1.09); PROTHROMBIN TIME (PATIENT) 11.3 SEC (9.98-11.88)
[2017-06-13 03:34] LABS: AMYLASE 85 U/L (25-115)
[2017-06-13 03:38] LABS: ALBUMIN 2.9 g/dl (3.4-5.0); ALK PHOS 163 U/L (45-117); ANION GAP 10 (8-16); BILIRUBIN,TOTAL 0.3 mg/dL (0.2-1.0); CALCIUM 8.4 mg/dL (8.5-10.1); CO2 30 mmol/L (21-32); CREATININE 0.4 mg/dL (0.55-1.02); GLUCOSE,RANDOM 79 mg/dL (74-106); SGPT/ALT 39 U/L (12-78)
[2017-06-13] MEDS ORDERED: SODIUM CHLORIDE 0.9% 500 ML INFUS.BAG IV ONE (03:38)
[2017-06-13 03:39] LABS: SGOT/AST 56 U/L (15-37)
[2017-06-13] MEDS ORDERED: FAMOTIDINE 20 MG/50 ML IVPB 50 ML IVPB ONE ×2 (03:39→04:22)
[2017-06-13] MEDS ORDERED: METOCLOPRAMIDE HCL INJECTION 10 MG/2 ML VIAL IVPB ONE (03:39)
[2017-06-13] MEDS ORDERED: METOCLOPRAMIDE HCL INJECTION 10 MG/2 ML VIAL ONE (04:21)
--- NOTE | 2017-06-13 07:08 | PDOC ---
*Physical Exam - Vital Signs Last Vital Signs Temp Pulse Resp BP Pulse Ox 96.4 F L 92 H 18 106/70 97 06/13/17 02:13 06/13/17 02:13 06/13/17 02:13 06/13/17 02:13 06/13/17 02:13 - Physical Exam Comments: 06/13/17 07:18 Gen: awake, MR, nonverbal HEENT: NGT in place Heart: +s1s2 reg Lungs: cta b/l abd: soft, nt/nd Ext: contracted extremities ED Treatment Course - LABORATORY CBC & Chemistry Diagram: 06/13/17 02:50 06/13/17 02:50 - ADDITIONAL ORDERS Additional order review: Laboratory Results 06/13/17 06/13/17 06/13/17 02:50 02:50 02:50 PT with INR INR Sodium 138 Potassium 5.1 Chloride 98 Carbon Dioxide 30 Anion Gap 10 BUN 12 D Creatinine 0.4 L D Creat Clearance w eGFR > 60 Random Glucose 79 Lactic Acid 1.7 Calcium 8.4 L Total Bilirubin 0.3 D AST 56 H ALT 39 D Alkaline Phosphatase 163 H D Total Protein 7.0 D Albumin 2.9 L D Total Amylase 85 Lipase 138 140 06/13/17 02:50 PT with INR 11.30 INR 1.03 Sodium Potassium Chloride Carbon Dioxide Anion Gap BUN Creatinine Creat Clearance w eGFR Random Glucose Lactic Acid Calcium Total Bilirubin AST ALT Alkaline Phosphatase Total Protein Albumin Total Amylase Lipase 06/13/17 02:50 RBC 4.55 D MCV 85.9 MCHC 33.4 RDW 17.7 H MPV 8.5 D Neutrophils % 61.4 Lymphocytes % 23.5 D Monocytes % 10.2 Eosinophils % 4.3 D Basophils % 0.6 - Medications Given in the ED: ED Medications Discontinued Medications Generic Name Dose Route Start Last Admin Trade Name Freq PRN Reason Stop Dose Admin Famotidine/Sodium Chloride 50 mls @ 100 mls/hr 06/13/17 03:39 06/13/17 04:25 Pepcid 20 Mg Premixed Ivpb - IVPB 06/13/17 04:08 100 mls/hr ONCE ONE Administration Metoclopramide HCl 10 mg 06/13/17 03:39 06/13/17 04:46 Reglan Injection - IVPB 06/13/17 03:40 10 mg ONCE ONE Administration Sodium Chloride 1,000 ml 06/13/17 03:38 06/13/17 03:40 Normal Saline - IV 06/13/17 03:39 1,000 ml ONCE ONE Administration Medical Decision Making - Medical Decision Making 06/13/17 07:19 pt with n/v from [place], signed out pending CT abd/pelvis -labs reviewed. -pending CT imaging and read -currently no vomiting in the ED even after contrast 06/13/17 09:51 ct imaging reviewed that shows constipation, will give enema here. will remove NGT 06/13/17 11:11 pt received enema. stable for d/c to home. discussed imaging results with the patients brilliandeer lopper from the [place]. Pt stable for d/c to home with recommendation for adding a GI cocktail. *DC/Admit/Observation/Transfer Diagnosis at time of Disposition: Constipation - Discharge Dispostion Admit: No - Referrals Referrals: James Michele Jr [Non Staff, Medical] - - Patient Instructions Printed Discharge Instructions: DI for Constipation Additional Instructions: Please start a bowel regiment for constipation. Please return to the ED with any further complaints. - Attestations Physician Attestion: 06/13/17 11:16 I, Dr. Delfina Johnson, DO, attest that this document has been prepared under my direction and personally reviewed by me in its entirety. I further attest, that it accurately reflects all work, treatment, procedures and medical decision -making performed by me.
[2017-06-13 07:50] VITALS: TEMP 97.7
[2017-06-13] MEDS ORDERED: BISACODYL 10 MG SUPP.RECT PR ONE (09:30)
[2017-06-13] MEDS ORDERED: BISACODYL 10 MG SUPP.RECT RC ONE (10:34)
[2017-06-13 11:43] VITALS: BP 90/58; PULSE 92
== END 2017-06-13 12:24 ==
LOC: JER 01:58
DX: K59.00 Constipation, unspecified (principal); Z86.69 Personal history of other diseases of the nervous system and sense organs; F79 Unspecified intellectual disabilities
CPT/HCPCS: 36415; 74176-TC; 76705-TC; 80053; 82150; 83605; 83690; 85025; 85610; 99283-25

== ENCOUNTER 2018-06-09 15:32 | Inpatient (IN) | payer OTHER ==
--- NOTE | 2018-06-09 15:40 | PDOC ---
Rapid Medical Evaluation Time Seen by Provider: 06/09/18 15:37 Medical Evaluation: Allergies Allergy/AdvReac Type Severity Reaction Status Date / Time No Known Allergies Allergy Verified 06/13/17 02:16 I have performed a brief in-person evaluation of this patient. The patient presents with a chief complaint of: from [facility]. Fever today of 102. was given tylenol this morning. Pertinent physical exam findings: Dry cough. Patient is non verbal. I have ordered the following: septic work up The patient will proceed to the ED for further evaluation. Discharge Disposition - Diagnosis Fever - Referrals - Patient Instructions - Post Discharge Activity
[2018-06-09] MEDS ORDERED: ALBUTEROL SO4 2.5/IPRATROPIUM 0.5 INH SOL 3 ML VIAL.NEB. NEB ONE ×6 (16:28→21:13)
--- NOTE | 2018-06-09 16:30 | PDOC ---
Attending Attestation - Resident Resident Name: KaurRios - ED Attending Attestation I have performed the following: I have examined & evaluated the patient, The case was reviewed & discussed with the resident, I agree w/resident's findings & plan, Exceptions are as noted - HPI HPI: 06/09/18 16:30 52y F from [facility], hx of MR, CP, seizure d/o presents from [facility] for fever, cough x 2 days. pt hd a few episodes of vomiting yesterday but non today. tolerated oral intake today. history from aide as pt is nonverbal. on exam general: in no distress skin: hot to the touch card: slightly tachycardic neuro: looks at me when i say her name pulm: no respiratory distress, lungs with scattered wheezing abd:soft nontender MSK: scolosis sepsis orderset obtained labs pending cxr shows no actue pathology - Physicial Exam PE: 06/12/18 16:47 see above - Medical Decision Making 06/09/18 20:18 labs reviewed LA noted at 3.5 will frank for further management / fluid reusitation pts sat also low at 93. will treat for clinical pna
[2018-06-09] MEDS ORDERED: ACETAMINOPHEN 650 MG SUPP.RECT PR ONE (18:01)
--- NOTE | 2018-06-09 18:12 | PDOC ---
History of Present Illness - General Chief Complaint: Shortness of Breath Stated Complaint: SOB/valdez nsg home Time Seen by Provider: 06/09/18 15:37 History Source: Patient - History of Present Illness Initial Comments: 06/09/18 18:13 his is a 51-year-old female resident of the [facility] with a history of profound mental retardation, cerebral palsy with spastic quadriplegia , scoliosis, epilepsy (maintained on diazepam 15mg po bid), and chronic constipation brought in to the ED via EMS following fever,cough x 2 days. pt had episodes of vomiting yesterday but none today. Past History - Past Medical History Allergies/Adverse Reactions: Allergies Allergy/AdvReac Type Severity Reaction Status Date / Time No Known Allergies Allergy Verified 06/09/18 15:38 Home Medications: Ambulatory Orders Bisacodyl [Biscolax] 10 mg RC DAILY PRN 02/21/17 Calcium 500Mg/Vit-D 200 Units [Os-Hitesh 500+D -] 1 combo PO BID 02/21/17 Cetirizine HCl [24Hour Allergy] 10 mg PO DAILY 02/21/17 Chlorhexidine Gluconate 30 ml MM BID 02/21/17 Diazepam [Valium] 15 mg PO BID 02/21/17 Ranitidine [Zantac -] 150 mg PO BID 02/21/17 Sennosides [Senna] 2 tab PO DAILY 02/21/17 levETIRAcetam [Keppra Oral Solution -] 500 mg PO BID #1 bottle 03/02/17 Baclofen 10 mg PO TID 06/13/17 Diazepam [Diastat Acudial] 10 mg RC PRN PRN 06/13/17 COPD: No Seizures: Yes (EPILEPSY; NO SEIZURE SINCE 1994) Thyroid Disease: (EXOTROPIA/CONSTIPATION) Other medical history: profound M.R,Cerbral Palsy with spastic quadriplegia, scoliosis, - Immunization History Immunization Up to Date: Yes - Suicide/Smoking/Psychosocial Hx Smoking History: Unknown if ever smoked Have you smoked in the past 12 months: No Number of Cigarettes Smoked Daily: 0 Information on smoking cessation initiated: No Hx Alcohol Use: No Drug/Substance Use Hx: No Substance Use Type: None Review of Systems - Review of Systems Able to Perform ROS?: No (Unable to communicate) *Physical Exam - Vital Signs Last Vital Signs Temp Pulse Resp BP Pulse Ox 114 H 24 H 109/65 93 L 06/09/18 15:38 06/09/18 15:38 06/09/18 15:38 06/09/18 15:38 - Physical Exam General Appearance: Yes: Nourished, Appropriately Dressed HEENT: positive: EOMI, RUDDY Respiratory/Chest: positive: Crackles, Rhonchi. negative: Chest Tender ED Treatment Course - LABORATORY CBC & Chemistry Diagram: 06/09/18 18:00 06/09/18 18:00 Medical Decision Making - Medical Decision Making 06/09/18 23:00 Sepsis pneumonia vs UTI - Basic labs - Blood Culture - Lactate - EKg - CXR - UA, Ucx Lactate 3.6, no elevated WBC 3 duoneb treatments given for dyspnea and low sat Waiting to get UA, Ucx Start vanc/zosyn, fluids - Admit Repeat lactate. 06/09/18 23:18 EKG: EKG: Sinus tachycardia, possible left atrial enlargement, low voltage QRS, cannot rule out anterior infarct, age undetermined. ST & T wave abnormality, consider inferior ischemia. 06/09/18 23:45 Urine negative for UTI. Despite CXR read patient is showing signs of dyspnea and is coughing. Source of infection likely to be respiratory. *DC/Admit/Observation/Transfer Diagnosis at time of Disposition: Fever - Discharge Dispostion Condition at time of disposition: Stable Decision to Admit order: Yes - Referrals - Patient Instructions - Post Discharge Activity
[2018-06-09] MEDS ORDERED: ACETAMINOPHEN 325 MG SUPP.RECT ONE (18:44)
[2018-06-09 18:50] LABS: BASO % 0.3 % (0-2.0); EOS % 0.6 % (0-4.5); HEMATOCRIT 38.5 % (32.4-45.2); HEMOGLOBIN 12.9 GM/dL (10.7-15.3); LYMPH % 15.5 % (8-40); MCH 30.8 pg (25.7-33.7); MCHC 33.5 g/dl (32.0-36.0); MEAN CELL VOLUME 92.1 fl (80-96); MONO % 10.1 % (3.8-10.2); NEUT % 73.5 % (42.8-82.8); RBC 4.19 M/mm3 (3.60-5.2); RDW 14.6 % (11.6-15.6); WHITE BLOOD COUNT 6.5 K/mm3 (4.0-10.0)
[2018-06-09 19:00] LABS: VENOUS PC02 45.2 mmHg (38-52); VENOUS PH 7.38 (7.32-7.42); VENOUS PO2 56.2 mmHg (28-48)
[2018-06-09 19:15] LABS: INR 1.04 (0.83-1.09); PROTHROMBIN TIME (PATIENT) 11.7 SEC (9.7-13.0)
[2018-06-09 19:24] LABS: ALBUMIN 3.4 g/dl (3.4-5.0); ALK PHOS 114 U/L (45-117); ANION GAP 14 MMOL/L (8-16); BILIRUBIN,TOTAL 0.3 mg/dL (0.2-1); BLOOD UREA NITROGEN 15 mg/dL (7-18); CHLORIDE 100 mmol/L (98-107); CO2 24 mmol/L (21-32); CREATININE 0.5 mg/dL (0.55-1.3); GLUCOSE,RANDOM 112 mg/dL (74-106); POTASSIUM 3.7 mmol/L (3.5-5.1); SGOT/AST 39 U/L (15-37); SGPT/ALT 38 U/L (13-61); SODIUM 139 mmol/L (136-145); TOT PROT 7.3 g/dl (6.4-8.2)
[2018-06-09] MEDS ORDERED: KETAMINE HCL 500 MG/10 ML VIAL IV ONE (19:53)
[2018-06-09] MEDS ORDERED: SODIUM CHLORIDE 1,000 ML IV STA (20:39)
[2018-06-09] MEDS ORDERED: PIPERACILLIN/TAZOB 3.375 GM 3.375 GM in DEXTROSE 5%-WATER - 50 ML IVPB ONE (20:40)
[2018-06-09] MEDS ORDERED: PIPERACILLIN/TAZOB 3.375 GM 3.375 GM/50 ML BAG IVPB ONE (20:50)
[2018-06-09 20:55] LABS: PLATELET ESTIMATE ADEQUATE
[2018-06-09] MEDS: VANCOMYCIN 1,250 MG in DEXTROSE 5%-WATER - 250 ML IVPB SCH (22:01)
[2018-06-09 23:17] LABS: URINE APPEARANCE SLCLOUDY; URINE BILIRUBIN NEGATIVE (<2.0 mg/dL); URINE COLOR DKYELLOW; URINE GLUCOSE (UA) NEGATIVE (NEGATIVE); URINE KETONE NEGATIVE (NEGATIVE); URINE LEUK ESTERASE TRACE (NEGATIVE); URINE NITRITE NEGATIVE (NEGATIVE); URINE UROBILINOGEN NEGATIVE mg/dL (0.2-1.0)
[2018-06-09 23:21] LABS: URINE PROTEIN 1+ (NEGATIVE)
--- NOTE | 2018-06-09 23:23 | PN ---
Teaching Attending Note Name of Resident: Aurelio Ruffin ATTENDING PHYSICIAN STATEMENT I saw and evaluated the patient. I reviewed the resident's note and discussed the case with the resident. I agree with the resident's findings and plan as documented. SUBJECTIVE: 52 y/o F with severe MR and CP brought from [facility] for fever, cough and vomiting. Patient is nonverbal and history taken from Aide and ED notes. OBJECTIVE: Agree with Exam as documented in H&P CBCD WBC 6.5 K/mm3 (4.0-10.0) 06/09/18 18:00 RBC 4.19 M/mm3 (3.60-5.2) 06/09/18 18:00 Hgb 12.9 GM/dL (10.7-15.3) 06/09/18 18:00 Hct 38.5 % (32.4-45.2) 06/09/18 18:00 MCV 92.1 fl (80-96) 06/09/18 18:00 MCHC 33.5 g/dl (32.0-36.0) 06/09/18 18:00 RDW 14.6 % (11.6-15.6) D 06/09/18 18:00 Plt Count No Result Required. 06/09/18 18:00 CMP Sodium 139 mmol/L (136-145) 06/09/18 18:00 Potassium 3.7 mmol/L (3.5-5.1) 06/09/18 18:00 Chloride 100 mmol/L (98-107) 06/09/18 18:00 Carbon Dioxide 24 mmol/L (21-32) 06/09/18 18:00 Anion Gap 14 MMOL/L (8-16) 06/09/18 18:00 BUN 15 mg/dL (7-18) 06/09/18 18:00 Creatinine 0.5 mg/dL (0.55-1.3) L 06/09/18 18:00 Creat Clearance w eGFR > 60 (>60) 06/09/18 18:00 Random Glucose 112 mg/dL (74-106) H 06/09/18 18:00 Calcium 9.0 mg/dL (8.5-10.1) 06/09/18 18:00 Total Bilirubin 0.3 mg/dL (0.2-1) 06/09/18 18:00 AST 39 U/L (15-37) H 06/09/18 18:00 ALT 38 U/L (13-61) 06/09/18 18:00 Alkaline Phosphatase 114 U/L (45-117) 06/09/18 18:00 Total Protein 7.3 g/dl (6.4-8.2) 06/09/18 18:00 Albumin 3.4 g/dl (3.4-5.0) 06/09/18 18:00 CARDIAC ENZYMES Troponin I < 0.02 ng/ml (0.00-0.05) 06/09/18 18:00 ASSESSMENT AND PLAN: Severe Sepsis - Lactic acid 3.6 most likely secondary to Pneumonia possible aspiration pneumonia IVF NS Zosyn and Vancomycin Nebs Tylenol prn ID consult DVT prophlyaxis.
[2018-06-09 23:27] LABS: EPI CELLS RARE /HPF (FEW); URINE MUCUS RARE
--- NOTE | 2018-06-10 00:31 | HP ---
CHIEF COMPLAINT: Fever PCP: Dr Michele-[facility] HISTORY OF PRESENT ILLNESS: Pt is nonverbal. 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 Pt presented to [facility] this evening (06/09/18) due to fever (Tmax unspecified at [place], 103.5 in ED) and a new cough. Per aid, pt has been having shallow breathing since this yesterday evening. Pt was given albuterol treatment at 1:55 pm yesterday and Robitussin at 10:25 am. Pt presented to our ED with similar presentation in June of last year. ER course was notable for: (1)Lactic Acid 3.6 (2)Vanc and Zosyn in ED (3) O2 SAT 93% Recent Travel: Negative PAST MEDICAL HISTORY: Per HPI PAST SURGICAL HISTORY: Social History: Smoking: negative Alcohol: negative Drugs: negative Family History: Allergies No Known Allergies Allergy (Verified 06/09/18 15:38) HOME MEDICATIONS: Home Medications Medication Instructions Recorded Bisacodyl [Biscolax] 10 mg RC DAILY PRN 02/21/17 Calcium 500Mg/Vit-D 200 Units 1 combo PO BID 02/21/17 [Os-Hitesh 500+D -] Cetirizine HCl [24Hour Allergy] 10 mg PO DAILY 02/21/17 Chlorhexidine Gluconate 30 ml MM BID 02/21/17 Diazepam [Valium] 15 mg PO BID 02/21/17 Ranitidine [Zantac -] 150 mg PO BID 02/21/17 Sennosides [Senna] 2 tab PO DAILY 02/21/17 levETIRAcetam [Keppra Oral 500 mg PO BID #1 bottle 03/02/17 Solution -] Baclofen 10 mg PO TID 06/13/17 Albuterol 0.083% Nebulizer Suzanne 1 neb NEB Q6H 06/09/18 [Ventolin 0.083% Nebulizer Soln -] Cholecalciferol (Vitamin D3) 400 unit PO DAILY 06/09/18 [Vitamin D3] Diazepam [Diastat Acudial] 1 each RC DAILY 06/09/18 Olopatadine HCl [Pataday] 2.5 ml OP DAILY 06/09/18 Psyllium Husk [Metamucil] 0.4 gm PO DAILY 06/09/18 REVIEW OF SYSTEMS UNABLE TO OBTAIN PER HPI. PHYSICAL EXAMINATION Vital Signs - 24 hr 06/09/18 06/09/18 15:38 18:00 Temperature 103 F H Pulse Rate 114 H Respiratory 24 H Rate Blood Pressure 109/65 O2 Sat by Pulse 93 L Oximetry (%) GENERAL: Appears at baseline per aid, responds to name HEAD: nc/at EYES: perrla, eomi EARS, NOSE, THROAT: MMM NECK: No JVD, no thyromegaly, no lympadenopathy appreciated LUNGS: Expiratory wheezing and crackles appreciated. HEART: RRR S1 S2 No MRG ABDOMEN: DISTENDED, TYMPANIC, BREATH SOUNDS HEARD IN ABDOMEN. Bowel sounds are decreased in all 4 quadrants. UPPER EXTREMITIES: Contractures b/l, warm to touch, pulses 1+ b/l. LOWER EXTREMITIES: Contractures b/l, pulses 1+ b/l. NEUROLOGICAL: baseline SKIN: Warm, dry, normal turgor, no rashes or lesions noted, normal capillary refill. Laboratory Results - last 24 hr 06/09/18 06/09/18 06/09/18 18:00 18:00 18:00 WBC 6.5 RBC 4.19 Hgb 12.9 Hct 38.5 MCV 92.1 MCH 30.8 MCHC 33.5 RDW 14.6 D Plt Count No Result Required. Absolute Neuts (auto) 4.8 Neutrophils % 73.5 Lymphocytes % 15.5 D Monocytes % 10.1 Eosinophils % 0.6 D Basophils % 0.3 Nucleated RBC % 0 Platelet Estimate Adequate Platelet Comment PT with INR 11.70 INR 1.04 PTT (Actin FS) 23.0 L VBG pH 7.38 POC VBG pCO2 45.2 POC VBG pO2 56.2 H Mixed VBG HCO3 26.3 H Sodium Potassium Chloride Carbon Dioxide Anion Gap BUN Creatinine Creat Clearance w eGFR Random Glucose Lactic Acid Calcium Total Bilirubin AST ALT Alkaline Phosphatase Troponin I Total Protein Albumin Urine Color Urine Appearance Urine pH Ur Specific [place] Urine Protein Urine Glucose (UA) Urine Ketones Urine Blood Urine Nitrite Urine Bilirubin Urine Urobilinogen Ur Leukocyte Esterase Urine WBC (Auto) Urine RBC (Auto) Ur Epithelial Cells Urine Mucus 06/09/18 06/09/18 06/09/18 18:00 18:00 22:59 WBC RBC Hgb Hct MCV MCH MCHC RDW Plt Count Absolute Neuts (auto) Neutrophils % Lymphocytes % Monocytes % Eosinophils % Basophils % Nucleated RBC % Platelet Estimate Platelet Comment PT with INR INR PTT (Actin FS) VBG pH POC VBG pCO2 POC VBG pO2 Mixed VBG HCO3 Sodium 139 Potassium 3.7 Chloride 100 Carbon Dioxide 24 Anion Gap 14 BUN 15 Creatinine 0.5 L Creat Clearance w eGFR > 60 Random Glucose 112 H Lactic Acid 3.6 H* Calcium 9.0 Total Bilirubin 0.3 AST 39 H ALT 38 Alkaline Phosphatase 114 Troponin I < 0.02 Total Protein 7.3 Albumin 3.4 Urine Color Dkyellow Urine Appearance Slcloudy Urine pH 5.0 Ur Specific [place] 1.034 Urine Protein 1+ H Urine Glucose (UA) Negative Urine Ketones Negative Urine Blood Negative Urine Nitrite Negative Urine Bilirubin Negative Urine Urobilinogen Negative Ur Leukocyte Esterase Trace Urine WBC (Auto) 8 Urine RBC (Auto) 13 Ur Epithelial Cells Rare Urine Mucus Rare ASSESSMENT/PLAN: Pt is a 52 y/o lady from [facility] with a significant past medical history of mental retardation, cerebral palsy with spastic quadriplegia, scoliosis, epilepsy(last seizure activity February of 2017, currently receiving diazepam 5 mg 3 tabs po BID and Keppra 500 mg BID), b/l foot contractures, b/l hip deformities s/p R hip surgery, constipation, myopia, astigmatism, and exotropia. # Fever 2/2 Aspiration pneumonia? 3/4 SIRS Criteria met--> Temp 103.5, RR 22, HR 114. Source Respiratory? -Tmax 103.5 in ED -Lactic Acid 3.6 in ED--> now 2.6 -Contine Vancomycin and Zosyn -I.D Dr Martinez On Board -Repeat BMP, Lactic Acid level in am -Suction prn -F/u Blood Cultures -Repeat CXR in am -Continue Fluids FEN LR's Monitor Electrolytes NPO DVT ppx: Dispo: continue to monitor on floor. Visit type - Emergency Visit Emergency Visit: Yes ED Registration Date: 06/09/18 Care time: The patient presented to the Emergency Department on the above date and was hospitalized for further evaluation of their emergent condition. - New Patient This patient is new to me today: Yes Date on this admission: 06/10/18 - Critical Care Critical Care patient: No Hospitalist Screening - Colonoscopy Questionnaire Colonoscopy Questionnaire: Colonoscopy Questionnaire - Patient: 50 - 75 years old and never had a screening colonoscopy: Unknown History of colon or rectal polyps, or CA: Unknown History of IBD, Crohn's disease or UC: Unknown History of abdominal radiation therapy as a child: Unknown - Relative: 1 with colon or rectal CA, or polyps at age 60 or younger: Unknown Colon or rectal CA diagnosed at age 45 or younger: Unknown Multiple relatives with colon or rectal CA: Unknown - Outcome: Screening Result: Negative Screen
[2018-06-10] MEDS ORDERED: ACETAMINOPHEN 1000 MG/100 ML VIAL (NON FORMULARY) IVPB ONE (01:27)
[2018-06-10] MEDS ORDERED: LACTATED RINGERS SOLUTION 1,000 ML/1,000 ML INFUS.BAG IV SCH ×2 (01:30→08:05)
[2018-06-10] MEDS ORDERED: ACETAMINOPHEN INJECTION 100 ML IVPB ONE (01:36)
[2018-06-10 07:26] LABS: BASO % 0.3 % (0-2.0); EOS % 0.3 % (0-4.5); HEMATOCRIT 31.5 % (32.4-45.2); HEMOGLOBIN 10.5 GM/dL (10.7-15.3); MCH 30.2 pg (25.7-33.7); MCHC 33.3 g/dl (32.0-36.0); MEAN CELL VOLUME 90.7 fl (80-96); MEAN PLT VOLUME 7.8 fl (7.5-11.1); MONO % 14.8 % (3.8-10.2); NEUT % 61.6 % (42.8-82.8); PLATELET COUNT 180 K/MM3 (134-434); RBC 3.47 M/mm3 (3.60-5.2); RDW 14.3 % (11.6-15.6); WHITE BLOOD COUNT 4.7 K/mm3 (4.0-10.0)
[2018-06-10 07:53] LABS: INR 1.14 (0.83-1.09); PROTHROMBIN TIME (PATIENT) 12.9 SEC (9.7-13.0)
[2018-06-10 07:56] LABS: ACTIVATED PTT 31.5 SECONDS (25.2-36.5)
[2018-06-10] MEDS: BACLOFEN 10 MG TABLET (FP) PO SCH ×3 (08:11→22:51)
[2018-06-10 08:26] LABS: ANION GAP 10 MMOL/L (8-16); BLOOD UREA NITROGEN 12 mg/dL (7-18); CALCIUM 8.6 mg/dL (8.5-10.1); CHLORIDE 105 mmol/L (98-107); CO2 26 mmol/L (21-32); CREATININE 0.4 mg/dL (0.55-1.3); GLUCOSE,RANDOM 82 mg/dL (74-106); MAGNESIUM 1.9 mg/dL (1.8-2.4); PHOSPHOROUS 3.6 mg/dL (2.5-4.9); POTASSIUM 3.8 mmol/L (3.5-5.1); SODIUM 141 mmol/L (136-145)
[2018-06-10] MEDS ORDERED: levETIRAcetam 500 MG/5 ML ORAL SOLUTION (UNIT-DOSE CUPS) PO SCH (10:00)
[2018-06-10] MEDS ORDERED: HEPARIN NA (PORCINE) 5,000 UNITS/ML 1ML VIAL SQ SCH (10:00)
[2018-06-10] MEDS ORDERED: diazePAM 5 MG TABLET PO SCH (10:00)
--- NOTE | 2018-06-10 11:18 | EKG ---
Test Reason : Blood Pressure : / mmHG Vent. Rate : 124 BPM Atrial Rate : 124 BPM P-R Int : 152 ms QRS Dur : 068 ms QT Int : 286 ms P-R-T Axes : 053 031 -08 degrees QTc Int : 410 ms POOR DATA QUALITY, INTERPRETATION MAY BE ADVERSELY AFFECTED SINUS TACHYCARDIA POSSIBLE LEFT ATRIAL ENLARGEMENT LOW VOLTAGE QRS CANNOT RULE OUT ANTERIOR INFARCT , AGE UNDETERMINED ABNORMAL ECG WHEN COMPARED WITH ECG OF 21-FEB-2017 09:35, VT INTERVAL HAS DECREASED Confirmed by JACQUELYN CORREA, WILDA ([id number]) on 06/10/2018 11:18:25 AM Referred By: Confirmed By:WILDA VALLADARES MD
[2018-06-10] MEDS: AZITHROMYCIN IVPB 500 MG in DEXTROSE 5%-WATER - 250 ML IVPB SCH (11:29)
[2018-06-10] MEDS ORDERED: PIPERACILLIN/TAZOB 3.375 GM 3.375 GM in DEXTROSE 5%-WATER - 50 ML IVPB ONE (11:30)
[2018-06-10] MEDS ORDERED: PIPERACILLIN/TAZOBACTAM 3.375 GM VIAL IVPB ONE ×2 (12:38→18:49)
[2018-06-10] MEDS ORDERED: DEXTROSE 5%-WATER - 50 ML IVPB ONE ×2 (12:38→18:50)
--- NOTE | 2018-06-10 13:06 | CON.ID ---
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 patient was brought to the hospital because of fevers and shallow breathing patient was worked up and found to have pneumonia family in the room and discussed with the family - History Source History Provided By: Transfer Record Limitations to Obtaining History: Clinical Condition - Past Medical History ABSTRACT CHECKER: Yes: Seizure, Other (MR, cerebral palsy) Additional Medical History: Profound MR - Alcohol/Substance Use Hx Alcohol Use: No - Smoking History Smoking history: Unknown if ever smoked Have you smoked in the past 12 months: No Aproximately how many cigarettes per day: 0 - Social History Usual Living Arrangement: [facility] ADL: Support Services Home Medications - Allergies Allergies/Adverse Reactions: Allergies Allergy/AdvReac Type Severity Reaction Status Date / Time No Known Allergies Allergy Verified 06/09/18 15:38 - Home Medications Home Medications: Ambulatory Orders Bisacodyl [Biscolax] 10 mg RC DAILY PRN 02/21/17 Calcium 500Mg/Vit-D 200 Units [Os-Hitesh 500+D -] 1 combo PO BID 02/21/17 Cetirizine HCl [24Hour Allergy] 10 mg PO DAILY 02/21/17 Chlorhexidine Gluconate 30 ml MM BID 02/21/17 Diazepam [Valium] 15 mg PO BID 02/21/17 Ranitidine [Zantac -] 150 mg PO BID 02/21/17 Sennosides [Senna] 2 tab PO DAILY 02/21/17 levETIRAcetam [Keppra Oral Solution -] 500 mg PO BID #1 bottle 03/02/17 Baclofen 10 mg PO TID 06/13/17 Albuterol 0.083% Nebulizer Suzanne [Ventolin 0.083% Nebulizer Soln -] 1 neb NEB Q6H 06/09/18 Cholecalciferol (Vitamin D3) [Vitamin D3] 400 unit PO DAILY 06/09/18 Diazepam [Diastat Acudial] 1 each RC DAILY 06/09/18 Olopatadine HCl [Pataday] 2.5 ml OP DAILY 06/09/18 Psyllium Husk [Metamucil] 0.4 gm PO DAILY 06/09/18 Omeprazole 20 mg PO DAILY 06/10/18 Review of Systems Unable to obtain ROS, reason: unable to obtain Physical Exam Vital Signs: Vital Signs Temperature 100.8 F H 06/10/18 09:00 Pulse Rate 101 H 06/10/18 09:00 Respiratory Rate 22 H 06/10/18 09:00 Blood Pressure 126/69 06/10/18 09:00 O2 Sat by Pulse Oximetry (%) 96 06/10/18 02:20 Constitutional: Yes: No Distress, Calm, Other Eyes: Yes: Conjunctiva Clear Neck: Yes: Supple, Trachea Midline Cardiovascular: Yes: Regular Rate and Rhythm Respiratory: Yes: Poor Air Entry (bases), Rhonchi (bilaterally), Other ( decreased rt side) Gastrointestinal: Yes: Normal Bowel Sounds, Soft Musculoskeletal: Yes: WNL Extremities: Yes: WNL Neurological: Yes: Alert, Other Psychiatric: Yes: Other Labs: CBC, BMP 06/10/18 06:00 06/10/18 06:00 Imaging - Results Chest X-ray: Report Reviewed, Image Reviewed Cat Scan: Report Reviewed, Image Reviewed Assessment/Plan patient with multiple medical issues and from [place] brought to the hospital for shallow breathing and fevers pneumonia fever lactic acidosis mental retardation plan zosyn swallow study keep on fluids rest continue current mgmt
[2018-06-10] MEDS ORDERED: ACETAMINOPHEN 1000 MG/100 ML VIAL (NON FORMULARY) IVPB PRN (14:41)
[2018-06-10] MEDS ORDERED: diazePAM ACUDIAL 5-7.5-10 MG 1 EACH KIT RC SCH (14:45)
[2018-06-10] MEDS ORDERED: FLU VACCINE QUAD 60 MCG/0.5 ML (MDV 18-19) IM ONE (15:00)
[2018-06-10] MEDS: PSYLLIUM 5.85 GM PACKET PO SCH (15:26)
[2018-06-10] MEDS: LORATADINE 10 MG TABLET PO SCH (15:26)
[2018-06-10] MEDS: PANTOPRAZOLE 20 MG TABLET (FP) PO SCH (15:26)
--- NOTE | 2018-06-10 15:31 | PN ---
Physical Exam: SUBJECTIVE: Patient seen and examined this AM. She is nonverbal so history taken from chart, night residents, and [facility] worker present at bedside. She is comfortable in bed but coughing. OBJECTIVE: Vital Signs Period Temp Pulse Resp BP Sys/Ascencio Pulse Ox Last 24 Hr 98.9 F-103.5 F 100-114 20-24 108-126/60-69 93-97 GENERAL: Awake, in no acute distress HEAD: Microcephalic, atraumatic. EYES: PERRL, no scleral icterus EARS, NOSE, THROAT: oropharynx clear with this mucus secretions. Moist mucous membranes. LUNGS: Course breath sounds diffusely HEART: Regular rate and rhythm, normal S1 and S2 without murmur ABDOMEN: Soft, nontender to palpation, normoactive bowel sounds MUSCULOSKELETAL: No bony deformities or tenderness. EXTREMITIES: Contracted SKIN: Warm, dry, no rashes or lesions noted Laboratory Results - last 24 hr 06/09/18 06/09/18 06/09/18 18:00 18:00 18:00 WBC 6.5 RBC 4.19 Hgb 12.9 Hct 38.5 MCV 92.1 MCH 30.8 MCHC 33.5 RDW 14.6 D Plt Count No Result Required. MPV Absolute Neuts (auto) 4.8 Neutrophils % 73.5 Lymphocytes % 15.5 D Monocytes % 10.1 Eosinophils % 0.6 D Basophils % 0.3 Nucleated RBC % 0 Platelet Estimate Adequate Platelet Comment PT with INR 11.70 INR 1.04 PTT (Actin FS) 23.0 L VBG pH 7.38 POC VBG pCO2 45.2 POC VBG pO2 56.2 H Mixed VBG HCO3 26.3 H Sodium Potassium Chloride Carbon Dioxide Anion Gap BUN Creatinine Creat Clearance w eGFR Random Glucose Lactic Acid Calcium Phosphorus Magnesium Total Bilirubin AST ALT Alkaline Phosphatase Troponin I Total Protein Albumin Urine Color Urine Appearance Urine pH Ur Specific [place] Urine Protein Urine Glucose (UA) Urine Ketones Urine Blood Urine Nitrite Urine Bilirubin Urine Urobilinogen Ur Leukocyte Esterase Urine WBC (Auto) Urine RBC (Auto) Ur Epithelial Cells Urine Mucus 06/09/18 06/09/18 06/09/18 18:00 18:00 22:59 WBC RBC Hgb Hct MCV MCH MCHC RDW Plt Count MPV Absolute Neuts (auto) Neutrophils % Lymphocytes % Monocytes % Eosinophils % Basophils % Nucleated RBC % Platelet Estimate Platelet Comment PT with INR INR PTT (Actin FS) VBG pH POC VBG pCO2 POC VBG pO2 Mixed VBG HCO3 Sodium 139 Potassium 3.7 Chloride 100 Carbon Dioxide 24 Anion Gap 14 BUN 15 Creatinine 0.5 L Creat Clearance w eGFR > 60 Random Glucose 112 H Lactic Acid 3.6 H* Calcium 9.0 Phosphorus Magnesium Total Bilirubin 0.3 AST 39 H ALT 38 Alkaline Phosphatase 114 Troponin I < 0.02 Total Protein 7.3 Albumin 3.4 Urine Color Dkyellow Urine Appearance Slcloudy Urine pH 5.0 Ur Specific [place] 1.034 Urine Protein 1+ H Urine Glucose (UA) Negative Urine Ketones Negative Urine Blood Negative Urine Nitrite Negative Urine Bilirubin Negative Urine Urobilinogen Negative Ur Leukocyte Esterase Trace Urine WBC (Auto) 8 Urine RBC (Auto) 13 Ur Epithelial Cells Rare Urine Mucus Rare 06/09/18 06/10/18 06/10/18 23:31 06:00 06:00 WBC 4.7 RBC 3.47 L Hgb 10.5 L Hct 31.5 L D MCV 90.7 MCH 30.2 MCHC 33.3 RDW 14.3 Plt Count 180 D MPV 7.8 Absolute Neuts (auto) 2.9 Neutrophils % 61.6 Lymphocytes % 23.0 D Monocytes % 14.8 H Eosinophils % 0.3 Basophils % 0.3 Nucleated RBC % 0 Platelet Estimate Platelet Comment PT with INR 12.90 INR 1.14 H PTT (Actin FS) 31.5 VBG pH POC VBG pCO2 POC VBG pO2 Mixed VBG HCO3 Sodium Potassium Chloride Carbon Dioxide Anion Gap BUN Creatinine Creat Clearance w eGFR Random Glucose Lactic Acid 2.6 H* Calcium Phosphorus Magnesium Total Bilirubin AST ALT Alkaline Phosphatase Troponin I Total Protein Albumin Urine Color Urine Appearance Urine pH Ur Specific [place] Urine Protein Urine Glucose (UA) Urine Ketones Urine Blood Urine Nitrite Urine Bilirubin Urine Urobilinogen Ur Leukocyte Esterase Urine WBC (Auto) Urine RBC (Auto) Ur Epithelial Cells Urine Mucus 06/10/18 06/10/18 06:00 06:00 WBC RBC Hgb Hct MCV MCH MCHC RDW Plt Count MPV Absolute Neuts (auto) Neutrophils % Lymphocytes % Monocytes % Eosinophils % Basophils % Nucleated RBC % Platelet Estimate Platelet Comment PT with INR INR PTT (Actin FS) VBG pH POC VBG pCO2 POC VBG pO2 Mixed VBG HCO3 Sodium 141 Potassium 3.8 Chloride 105 Carbon Dioxide 26 Anion Gap 10 BUN 12 Creatinine 0.4 L Creat Clearance w eGFR > 60 Random Glucose 82 Lactic Acid 0.7 Calcium 8.6 Phosphorus 3.6 Magnesium 1.9 Total Bilirubin AST ALT Alkaline Phosphatase Troponin I Total Protein Albumin Urine Color Urine Appearance Urine pH Ur Specific [place] Urine Protein Urine Glucose (UA) Urine Ketones Urine Blood Urine Nitrite Urine Bilirubin Urine Urobilinogen Ur Leukocyte Esterase Urine WBC (Auto) Urine RBC (Auto) Ur Epithelial Cells Urine Mucus Active Medications Generic Name Dose Route Start Last Admin Trade Name Freq PRN Reason Stop Dose Admin Acetaminophen 750 mg 06/10/18 15:23 Ofirmev Injection - IVPB Q8H-IV PRN FEVER Albuterol Sulfate 1 amp 06/10/18 16:00 Ventolin 0.083% Nebulizer Soln - NEB RQID [facility] Baclofen 10 mg 06/10/18 08:00 06/10/18 14:12 Lioresal - PO Not Given TID DARWIN Bisacodyl 10 mg 06/10/18 14:38 Dulcolax Suppository - RC DAILY PRN CONSTIPATION Calcium Carbonate/Cholecalciferol 1 tab 06/10/18 22:00 Os-Hitesh 500+D - PO BID [facility] Chlorhexidine Gluconate 30 ml 06/10/18 22:00 Peridex - MM BID [facility] Cholecalciferol 400 unit 06/11/18 10:00 Vitamin D3 - PO DAILY [facility] Diazepam 15 mg 06/10/18 10:00 06/10/18 11:35 Valium - PO Not Given BID [facility] Heparin Sodium (Porcine) 5,000 unit 06/10/18 10:00 06/10/18 11:36 Heparin - SQ 5,000 unit BID [facility]WIN Administration Vancomycin HCl 1,250 mg/ 250 mls @ 250 mls/2 hr 06/09/18 20:45 06/09/18 22:01 Dextrose IVPB 250 mls/2 hr Q24H [facility]WIN Administration Protocol Lactated Ringer's 1,000 ml in 1,000 mls @ 100 mls/hr 06/10/18 08:05 06/10/18 08:27 Lactated Ringers Solution IV 100 mls/hr ASDIR DARWIN Administration Azithromycin 500 mg/ Dextrose 250 mls @ 250 mls/hr 06/10/18 11:15 06/10/18 11 :29 IVPB 250 mls/hr DAILY [facility] Administration Piperacillin Sod/Tazobactam 50 mls @ 100 mls/hr 06/10/18 18:00 Sod 3.375 gm/ Dextrose IVPB Q8H-IV DARWIN Protocol Levetiracetam 500 mg 06/10/18 10:00 06/10/18 11:35 Keppra Oral Solution - PO Not Given BID [facility] Loratadine 10 mg 06/10/18 14:45 Claritin - PO DAILY [facility] Non-Formulary Medication 2.5 ml 06/11/18 10:00 Olopatadine Hcl [Pataday] OP DAILY [facility] Pantoprazole Sodium 20 mg 06/10/18 14:45 Protonix - PO DAILY [facility] Psyllium Hydrophilic Mucilloid 5.85 gm 06/10/18 14:45 Metamucil (Sugar-Free) - PO DAILY [facility] Ranitidine HCl 150 mg 06/10/18 22:00 Zantac - PO BID DAWRIN Senna 2 tab 06/11/18 10:00 Senna - PO DAILY [facility] ASSESSMENT/PLAN: 52 yo Female with PMH Cerebral Palsy with spastic quadriplegia, Mental Retardation, Epilepsy, Scoliosis presented from [facility] for vomiting followed by high fevers and cough. Sepsis secondary to Aspiration pneumonia vs pneumonitis -Febrile 103.5 on admission, Tachycardic, tachypnic -CXR: No gross evidence of infiltration -Chest CT: RUL congestion suspicious for pneumonia vs pneumonitis -ID consult appreciated Azithromycin 500 mg IV Daily, Zosyn 3.375 gm Q8 IV, Vancomycin 1250 mg IV Daily -Ventolin NEBs QID Epilepsy -Keppra 500 mg PO BID switched to IV -Ativan 1gm TID DARWIN Spasticity -Pt on Baclofen 10 mg TID -Unable to give for now due to strict NPO -Will monitor carefully for increased spasticity and start baclofen as soon as pt tolerates PO -Discussed with pharmacy, no possible replacement without NG tube which pt will not tolerate DVT Prophylaxis -Heparin 5000 units SQ TID FEN -Fluids: D5 LR @ 100 cc/hr -Electrolytes: No electrolyte abnormalities, BMP in AM -Nutrition: Strict NPO until lethargy improves Disposition Med/Surg Visit type - Emergency Visit Emergency Visit: Yes ED Registration Date: 06/09/18 Care time: The patient presented to the Emergency Department on the above date and was hospitalized for further evaluation of their emergent condition. - New Patient This patient is new to me today: Yes Date on this admission: 06/10/18 - Critical Care Critical Care patient: No
[2018-06-10] MEDS: ALBUTEROL SO4 0.083% IH SOL 2.5 MG/3 ML VIAL.NEB. NEB SCH ×2 (16:03→20:38)
--- NOTE | 2018-06-10 16:38 | CONSULT ---
Admitting History and Physical - Past Medical History CARRIER BLOWER: Yes: Seizure, Other (MR, cerebral palsy) - Smoking History Smoking history: Unknown if ever smoked Have you smoked in the past 12 months: No Aproximately how many cigarettes per day: 0 - Alcohol/Substance Use Hx Alcohol Use: No - Social History ADL: Support Services History - Admission Reason For Visit: FEVER Speech Evaluation - Communication Primary Language: JAPANESE Communication: Yes: Non-Communicable Oral Expression Ability: Yes: Non-Verbal - Speech Production Apraxia: No Able to Make Needs Known: Yes: Severely Impaired Intelligibility: Yes: Severely Impaired - Speech Characteristics Voice Loudness: Moderately Soft/Quiet Speech Pattern: Impaired Speech Clarity: < 100% Voice Comment: no vocalizations observed. pt is non-verbal - Language/Auditory Comprehension Follows: Yes: 1 Stage Simple Commands (no demonstrated), 2 Stage Simple Commands (no demonstrated), Complex Commands (no demonstrated) Observation: Able to respond to yes/no queries: No, Comprehends Conversational Speech: No, Benefits from Slow Speech: No, Benefits from Repetiton: Yes, Benefits from Increased Volume of Speech: No - Language/Verbal Expression Able to Respond to Simple Queries: Yes: Severely Impaired Able to Communicate Wants and Needs: Yes: Severely Impaired Functional Communication Status: Yes: Severely Impaired Aware of Errors: No Attempts to Correct Errors: No Use of Gestures: No Written Expression: Pt unable Oral Expression: NON verbal Reading Comprehension: Pt unable Calculations: Pt unable Attention: Yes: Profound Impairment - Memory/Perception senior care Memory: Yes: Severely Impaired Short Term Memory: Yes: Severely Impaired - Swallow Evaluation/Bedside Assessment Current Nutritional Intake: NPO (except meds) Oral Secretions: Yes: WFL Tracheostomy Present: No Patient on Ventilator: No Dentition: Yes: Adequate Facial Symmetry at Rest: Symmetrical Facial Symmetry on Retraction: Symmetrical Facial Movement: Involuntary Sensation: Reduced Left Facial Comment: Pt lethargic at bedside. Informal observation appears WFL Lips, Comment: Pt lethargic at bedside. Informal observation appears WFL Lingual Speed of Movement: Reduced Lingual Movement Strgth Against Opposition: Reduced Lingual Comment: Pt lethargic at bedside. Informal observation appears WFL Gag Reflex: Weak Bite Reflex: Absent Laryngeal Elevation: Impaired Laryngeal Movement: Unable to Palpate Needs Assistance: Yes Rate of Intake: WFL Coughing/Throat Clear: No Change in Voice: No Other Findings/Remarks: 52 yo female seen at bedside by SENIOR SYSTEMS ENGINEER for swallow eval to r/o dysphagia with aide present. Pt presents with profound intellectual disabilities, non-verbal, CP and seizures. Admitted to [facility] with suspected right lobe PNA. Pt is from [facility] home on [address] Current diet is NPO but at home she consumes pureed with honey thicken liquids with total assistance. At bedside pt is lethargic and behavioral instructor reports fever (103). Pt also presents with rapid heart rate, occasional cough and wet gurgly breath sounds. Pt was not responsive during this session. Given initial bedside observation and current reduced mental status, no po trials were offered at this time. Pt is not safe for swallow trials. Recommendations - Speech Evaluation, Impression/Plan Impression: Pt presents with moderate to severe dysphagia and is currently at risk for aspiration at this time. Continue NPO status until fever breaks and pt is responsive. Meds can be given orally with pureed if pt is awake and alert. Bundle Helper Goals: tolerate the least restrictive diet without s/s of aspiration - Dysphagia Impressions/Plan Swallowing Skills: Impaired Dysphagia Impressions: Moderate Impairment, Risk of Aspiration, Suspect Aspiration *Silent aspiration: cannot be R/O at bedside Dysphagia Treatment Plan: Other Dysphagia Evaluation Summary: Continue NPO status until fever breaks and pt is alert. Pt can be given medication with puree when mental status improves. Observe standard aspiration precautions. Results given verbally to rn relief chargeMOISÉS Morin and to pcp via chart. SENIOR SYSTEMS ENGINEER to follow up for swallow eval when pt health and respiratory status improves. - Recommendations Diet Consistency: NPO Medication Administration: Crushed with applesauce (give with puree) Liquids: NPO
[2018-06-10] MEDS: ACETAMINOPHEN 1000 MG/100 ML VIAL (NON FORMULARY) IVPB PRN (17:17)
--- NOTE | 2018-06-10 18:14 | PN ---
Teaching Attending Note Name of Resident: Pedro Morejon ATTENDING PHYSICIAN STATEMENT I saw and evaluated the patient. I reviewed the resident's note and discussed the case with the resident. I agree with the resident's findings and plan as documented with exceptions below. SUBJECTIVE: Patient seen and examined. non verbal, unable to assess for ROS. OBJECTIVE: Vital Signs Period Temp Pulse Resp BP Sys/Ascencio Pulse Ox Last 24 Hr 98.9 F-103.5 F 100-111 20-24 108-126/60-69 96-97 Intake & Output 06/07/18 06/08/18 06/09/18 06/10/18 23:59 23:59 23:59 23:59 Intake Total 875 Balance 875 Weight 145 lb 100 lb 6 oz General: non verbal, audible upper airway wheeze/rales Chest: markedly limited exam due to body habitus and lack of co-operation, scatted rhonchi and coarse rales Abdomen:soft, ND, positive bowel sounds Extremities: contractures Active Medications Acetaminophen (Ofirmev Injection -) 750 mg IVPB Q8H PRN PRN Reason: FEVER Last Admin: 06/10/18 17:17 Dose: 750 mg Albuterol Sulfate (Ventolin 0.083% Nebulizer Soln -) 1 amp NEB RQID [facility] Last Admin: 06/10/18 16:03 Dose: 1 amp Baclofen (Lioresal -) 10 mg PO TID [facility] Last Admin: 06/10/18 14:12 Dose: Not Given Bisacodyl (Dulcolax Suppository -) 10 mg RC DAILY PRN PRN Reason: CONSTIPATION Calcium Carbonate/Cholecalciferol (Os-Hitesh 500+D -) 1 tab PO BID [facility] Chlorhexidine Gluconate (Peridex -) 30 ml MM BID DARWIN Cholecalciferol (Vitamin D3 -) 400 unit PO DAILY [facility] Heparin Sodium (Porcine) (Heparin -) 5,000 unit SQ BID [facility] Last Admin: 06/10/18 11:36 Dose: 5,000 unit Vancomycin HCl 1,250 mg/ (Dextrose) 250 mls @ 250 mls/2 hr IVPB Q24H [facility]; Protocol Last Admin: 06/09/18 22:01 Dose: 250 mls/2 hr Lactated Ringer's (Lactated Ringers Solution) 1,000 ml in 1,000 mls @ 100 mls/ hr IV ASDIR DARWIN Last Admin: 06/10/18 08:27 Dose: 100 mls/hr Azithromycin 500 mg/ Dextrose 250 mls @ 250 mls/hr IVPB DAILY [facility] Last Admin: 06/10/18 11:29 Dose: 250 mls/hr Piperacillin Sod/Tazobactam (Sod 3.375 gm/ Dextrose) 50 mls @ 100 mls/hr IVPB Q8H-IV DARWIN; Protocol Levetiracetam (Keppra Injection -) 500 mg IVPB BID [facility] Loratadine (Claritin -) 10 mg PO DAILY [facility] Last Admin: 06/10/18 15:26 Dose: Not Given Lorazepam (Ativan Injection -) 1 mg IVPUSH TID [facility] Non-Formulary Medication (Olopatadine Hcl [Pataday]) 2.5 ml OP DAILY [facility] Pantoprazole Sodium (Protonix -) 20 mg PO DAILY [facility] Last Admin: 06/10/18 15:26 Dose: Not Given Psyllium Hydrophilic Mucilloid (Metamucil (Sugar-Free) -) 5.85 gm PO DAILY [facility] Last Admin: 06/10/18 15:26 Dose: Not Given Ranitidine HCl (Zantac -) 150 mg PO BID [facility] Senna (Senna -) 2 tab PO DAILY [facility] Laboratory Results - last 24 hr 06/09/18 06/09/18 06/09/18 18:00 18:00 18:00 WBC 6.5 RBC 4.19 Hgb 12.9 Hct 38.5 MCV 92.1 MCH 30.8 MCHC 33.5 RDW 14.6 D Plt Count No Result Required. MPV Absolute Neuts (auto) 4.8 Neutrophils % 73.5 Lymphocytes % 15.5 D Monocytes % 10.1 Eosinophils % 0.6 D Basophils % 0.3 Nucleated RBC % 0 Platelet Estimate Adequate Platelet Comment PT with INR 11.70 INR 1.04 PTT (Actin FS) 23.0 L VBG pH 7.38 POC VBG pCO2 45.2 POC VBG pO2 56.2 H Mixed VBG HCO3 26.3 H Sodium Potassium Chloride Carbon Dioxide Anion Gap BUN Creatinine Creat Clearance w eGFR Random Glucose Lactic Acid Calcium Phosphorus Magnesium Total Bilirubin AST ALT Alkaline Phosphatase Troponin I Total Protein Albumin Urine Color Urine Appearance Urine pH Ur Specific [place] Urine Protein Urine Glucose (UA) Urine Ketones Urine Blood Urine Nitrite Urine Bilirubin Urine Urobilinogen Ur Leukocyte Esterase Urine WBC (Auto) Urine RBC (Auto) Ur Epithelial Cells Urine Mucus 06/09/18 06/09/18 06/09/18 18:00 18:00 22:59 WBC RBC Hgb Hct MCV MCH MCHC RDW Plt Count MPV Absolute Neuts (auto) Neutrophils % Lymphocytes % Monocytes % Eosinophils % Basophils % Nucleated RBC % Platelet Estimate Platelet Comment PT with INR INR PTT (Actin FS) VBG pH POC VBG pCO2 POC VBG pO2 Mixed VBG HCO3 Sodium 139 Potassium 3.7 Chloride 100 Carbon Dioxide 24 Anion Gap 14 BUN 15 Creatinine 0.5 L Creat Clearance w eGFR > 60 Random Glucose 112 H Lactic Acid 3.6 H* Calcium 9.0 Phosphorus Magnesium Total Bilirubin 0.3 AST 39 H ALT 38 Alkaline Phosphatase 114 Troponin I < 0.02 Total Protein 7.3 Albumin 3.4 Urine Color Dkyellow Urine Appearance Slcloudy Urine pH 5.0 Ur Specific [place] 1.034 Urine Protein 1+ H Urine Glucose (UA) Negative Urine Ketones Negative Urine Blood Negative Urine Nitrite Negative Urine Bilirubin Negative Urine Urobilinogen Negative Ur Leukocyte Esterase Trace Urine WBC (Auto) 8 Urine RBC (Auto) 13 Ur Epithelial Cells Rare Urine Mucus Rare 06/09/18 06/10/18 06/10/18 23:31 06:00 06:00 WBC 4.7 RBC 3.47 L Hgb 10.5 L Hct 31.5 L D MCV 90.7 MCH 30.2 MCHC 33.3 RDW 14.3 Plt Count 180 D MPV 7.8 Absolute Neuts (auto) 2.9 Neutrophils % 61.6 Lymphocytes % 23.0 D Monocytes % 14.8 H Eosinophils % 0.3 Basophils % 0.3 Nucleated RBC % 0 Platelet Estimate Platelet Comment PT with INR 12.90 INR 1.14 H PTT (Actin FS) 31.5 VBG pH POC VBG pCO2 POC VBG pO2 Mixed VBG HCO3 Sodium Potassium Chloride Carbon Dioxide Anion Gap BUN Creatinine Creat Clearance w eGFR Random Glucose Lactic Acid 2.6 H* Calcium Phosphorus Magnesium Total Bilirubin AST ALT Alkaline Phosphatase Troponin I Total Protein Albumin Urine Color Urine Appearance Urine pH Ur Specific [place] Urine Protein Urine Glucose (UA) Urine Ketones Urine Blood Urine Nitrite Urine Bilirubin Urine Urobilinogen Ur Leukocyte Esterase Urine WBC (Auto) Urine RBC (Auto) Ur Epithelial Cells Urine Mucus 06/10/18 06/10/18 06:00 06:00 WBC RBC Hgb Hct MCV MCH MCHC RDW Plt Count MPV Absolute Neuts (auto) Neutrophils % Lymphocytes % Monocytes % Eosinophils % Basophils % Nucleated RBC % Platelet Estimate Platelet Comment PT with INR INR PTT (Actin FS) VBG pH POC VBG pCO2 POC VBG pO2 Mixed VBG HCO3 Sodium 141 Potassium 3.8 Chloride 105 Carbon Dioxide 26 Anion Gap 10 BUN 12 Creatinine 0.4 L Creat Clearance w eGFR > 60 Random Glucose 82 Lactic Acid 0.7 Calcium 8.6 Phosphorus 3.6 Magnesium 1.9 Total Bilirubin AST ALT Alkaline Phosphatase Troponin I Total Protein Albumin Urine Color Urine Appearance Urine pH Ur Specific [place] Urine Protein Urine Glucose (UA) Urine Ketones Urine Blood Urine Nitrite Urine Bilirubin Urine Urobilinogen Ur Leukocyte Esterase Urine WBC (Auto) Urine RBC (Auto) Ur Epithelial Cells Urine Mucus Microbiology 06/10/18 14:30 Nasopharyngeal Swab Influenza Types A,B Antigen - Final 06/10/18 14:30 Nasopharyngeal Swab - Final CT chest results reviewed - possible RUL PNA ASSESSMENT AND PLAN: 52 yom with PMHx of mental retardation, cerebral palsy with spastic quadriplegia , scoliosis, epilepsy(last seizure activity February of 2017, currently receiving diazepam 5 mg 3 tabs po BID and Keppra 500 mg BID), b/l foot contractures, 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 CT chest noted. Add nebs. Check PNA studies. Flu swab neg. FOllow up blood cx, Sputum cx as available. Speech/swallow input noted, NPO Aspiration precautions. IVF D5-LR. KEppra to IV, Ativan IV while NPO. Seizure precautions. DVTPPX lovenox DIspo pending clinical improvement. Plan discussed with aide at bedside and all questions answered.
[2018-06-10] MEDS: DEXTROSE 5%-LACTATED RINGERS 1,000 ML IV SCH (18:19)
[2018-06-10] MEDS: PIPERACILLIN/TAZOB 3.375 GM 3.375 GM in DEXTROSE 5%-WATER - 50 ML IVPB SCH (18:52)
[2018-06-10] MEDS: VANCOMYCIN 1,250 MG in DEXTROSE 5%-WATER - 250 ML IVPB SCH (21:23)
[2018-06-10] MEDS: levETIRAcetam 500 MG/5 ML INJECTION VIAL IVPB SCH (22:50)
[2018-06-10] MEDS: HEPARIN NA (PORCINE) 5,000 UNITS/ML 1ML VIAL SQ SCH (22:50)
[2018-06-10] MEDS: RANITIDINE HCL 150 MG TABLET (FP) PO SCH (22:51)
[2018-06-10] MEDS: CALCIUM 500MG/VIT-D 200 UNITS COMBO TABLET (FP) PO SCH (22:51)
[2018-06-10] MEDS: CHLORHEXIDINE GLUCONATE 0.12% 15ML CUP MM SCH (22:51)
[2018-06-10] MEDS: LORazepam 2 MG/ML SDV VIAL IVPUSH SCH (23:06)
[2018-06-11] MEDS ORDERED: PIPERACILLIN/TAZOBACTAM 3.375 GM VIAL IVPB ONE ×3 (02:54→16:59)
[2018-06-11] MEDS ORDERED: DEXTROSE 5%-WATER - 50 ML IVPB ONE ×3 (02:54→16:59)
[2018-06-11] MEDS: PIPERACILLIN/TAZOB 3.375 GM 3.375 GM in DEXTROSE 5%-WATER - 50 ML IVPB SCH ×3 (02:58→17:04)
[2018-06-11] MEDS: ACETAMINOPHEN 1000 MG/100 ML VIAL (NON FORMULARY) IVPB PRN ×2 (05:38→20:07)
[2018-06-11] MEDS: LORazepam 2 MG/ML SDV VIAL IVPUSH SCH ×3 (05:39→21:27)
[2018-06-11] MEDS: HEPARIN NA (PORCINE) 5,000 UNITS/ML 1ML VIAL SQ SCH ×3 (05:41→21:28)
[2018-06-11] MEDS: BACLOFEN 10 MG TABLET (FP) PO SCH ×3 (05:42→21:26)
[2018-06-11] MEDS ORDERED: SODIUM CHLORIDE 1,000 ML IV STA (07:30)
[2018-06-11] MEDS: ALBUTEROL SO4 0.083% IH SOL 2.5 MG/3 ML VIAL.NEB. NEB SCH ×4 (07:35→20:15)
--- NOTE | 2018-06-11 09:17 | PN ---
Physical Exam: SUBJECTIVE: Patient seen and examined this AM. The aide was present and says that at baseline the pt tolerates pureed diet with meds crushed. Pt is currently resting comfortably in bed. The aide says she has not seen the pt in a few days but says she is better now than when she saw her last. OBJECTIVE: Vital Signs Period Temp Pulse Resp BP Sys/Ascencio Pulse Ox Last 24 Hr 97.9 F-103.1 F 66-104 18-18 92-95/54-57 97 GENERAL: Awake, in no acute distress HEAD: Microcephalic, atraumatic. EYES: PERRL, no scleral icterus EARS, NOSE, THROAT: oropharynx clear with less mucus secretions. Moist mucous membranes. LUNGS: Course breath sounds diffusely which some wheezing, poor inspiratory effort HEART: Regular rate and rhythm, normal S1 and S2 without murmur ABDOMEN: Soft, nontender to palpation, normoactive bowel sounds MUSCULOSKELETAL: Severe levoscoliosis EXTREMITIES: Contracted SKIN: Warm, dry, no rashes or lesions noted Active Medications Generic Name Dose Route Start Last Admin Trade Name Freq PRN Reason Stop Dose Admin Acetaminophen 750 mg 06/10/18 15:23 06/11/18 05:38 Ofirmev Injection - IVPB 750 mg Q8H PRN Administration FEVER Albuterol Sulfate 1 amp 06/10/18 16:00 06/11/18 07:35 Ventolin 0.083% Nebulizer Soln - NEB 1 amp RQID [facility] Administration Baclofen 10 mg 06/10/18 08:00 06/11/18 05:42 Lioresal - PO Not Given TID [facility] Bisacodyl 10 mg 06/10/18 14:38 Dulcolax Suppository - RC DAILY PRN CONSTIPATION Calcium Carbonate/Cholecalciferol 1 tab 06/10/18 22:00 06/10/18 22:51 Os-Hitesh 500+D - PO Not Given BID [facility] Chlorhexidine Gluconate 30 ml 06/10/18 22:00 06/10/18 22:51 Peridex - MM Not Given BID [facility] Cholecalciferol 400 unit 06/11/18 10:00 Vitamin D3 - PO DAILY [facility] Heparin Sodium (Porcine) 5,000 unit 06/10/18 22:00 06/11/18 05:41 Heparin - SQ 5,000 unit TID [facility] Administration Vancomycin HCl 1,250 mg/ 250 mls @ 250 mls/2 hr 06/09/18 20:45 06/10/18 21:23 Dextrose IVPB 250 mls/2 hr Q24H [facility] Administration Protocol Azithromycin 500 mg/ Dextrose 250 mls @ 250 mls/hr 06/10/18 11:15 06/10/18 11 :29 IVPB 250 mls/hr DAILY [facility] Administration Piperacillin Sod/Tazobactam 50 mls @ 100 mls/hr 06/10/18 18:00 06/11/18 02:58 Sod 3.375 gm/ Dextrose IVPB 100 mls/hr Q8H-IV [facility] Administration Protocol Dextrose/Lactated Ringer's 1,000 mls @ 100 mls/hr 06/10/18 18:15 06/10/18 18: 19 D5-Lr - IV 100 mls/hr ASDIR [facility] Administration Levetiracetam 500 mg 06/10/18 22:00 06/10/18 22:50 Keppra Injection - IVPB 500 mg BID [facility] Administration Loratadine 10 mg 06/10/18 14:45 06/10/18 15:26 Claritin - PO Not Given DAILY [facility] Lorazepam 1 mg 06/10/18 22:00 06/11/18 05:39 Ativan Injection - IVPUSH 1 mg TID [facility] Administration Non-Formulary Medication 2.5 ml 06/11/18 10:00 Olopatadine Hcl [Pataday] OP DAILY [facility] Pantoprazole Sodium 20 mg 06/10/18 14:45 06/10/18 15:26 Protonix - PO Not Given DAILY [facility] Psyllium Hydrophilic Mucilloid 5.85 gm 06/10/18 14:45 06/10/18 15:26 Metamucil (Sugar-Free) - PO Not Given DAILY [facility] Ranitidine HCl 150 mg 06/10/18 22:00 06/10/18 22:51 Zantac - PO Not Given BID [facility] Senna 2 tab 06/11/18 10:00 Senna - PO DAILY [facility] ASSESSMENT/PLAN: 52 yo Female with PMH Cerebral Palsy with spastic quadriplegia, Mental Retardation, Epilepsy, Scoliosis presented from [facility] for vomiting followed by high fevers and cough. Sepsis secondary to Aspiration pneumonia vs pneumonitis -Febrile 103.5 on admission, Tachycardic, tachypnic -CXR: No gross evidence of infiltration -Chest CT: RUL congestion suspicious for pneumonia vs pneumonitis -ID consult appreciated Azithromycin 500 mg IV Daily, Zosyn 3.375 gm Q8 IV, Vancomycin 1250 mg IV Daily -Ventolin NEBs QID -Lactic acid mildly elevated on admission 3.6, resolved Epilepsy -Keppra 500 mg PO BID switched to IV -Ativan 1gm TID [facility] Spasticity -Pt on Baclofen 10 mg TID -Unable to give for now due to strict NPO -Will monitor carefully for increased spasticity and start baclofen as soon as pt tolerates PO -Discussed with pharmacy, no possible replacement without NG tube which pt will not tolerate DVT Prophylaxis -Heparin 5000 units SQ TID FEN -Fluids: D5 LR @ 100 cc/hr -Electrolytes: No electrolyte abnormalities, BMP in AM -Nutrition: Strict NPO until lethargy improves Disposition Med/Surg Visit type - Emergency Visit Emergency Visit: Yes ED Registration Date: 06/09/18 Care time: The patient presented to the Emergency Department on the above date and was hospitalized for further evaluation of their emergent condition. - New Patient This patient is new to me today: No - Critical Care Critical Care patient: No
[2018-06-11] MEDS ORDERED: PATIENT'S OWN MEDICATION (NON-FORMULARY) (Olopatadine Hcl [Pataday] 2.5 ML) OP SCH (10:00)
--- NOTE | 2018-06-11 10:00 | PN ---
Teaching Attending Note Name of Resident: Pedro Morejon ATTENDING PHYSICIAN STATEMENT I saw and evaluated the patient. I reviewed the resident's note and discussed the case with the resident. I agree with the resident's findings and plan as documented with exceptions below. SUBJECTIVE: Patient seen and examined. non verbal, unable to assess for ROS. OBJECTIVE: Vital Signs Period Temp Pulse Resp BP Sys/Ascencio Pulse Ox Last 24 Hr 97.9 F-103.1 F 66-112 18-18 92-112/54-60 97 Intake & Output 06/08/18 06/09/18 06/10/18 06/11/18 23:59 23:59 23:59 23:59 Intake Total 2175 1250 Balance 2175 1250 Weight 145 lb 100 lb 6 oz General: lying in bed, less rhoncherous than yesterday Chest: improved coarse rhonchi today, positive air entry. limited exam due to body habitus and lack of effort Abdomen:Soft, ND, positive bowel sounds Extremities: contractures Active Medications Acetaminophen (Ofirmev Injection -) 750 mg IVPB Q8H PRN PRN Reason: FEVER Last Admin: 06/11/18 05:38 Dose: 750 mg Albuterol Sulfate (Ventolin 0.083% Nebulizer Soln -) 1 amp NEB RQID [facility] Last Admin: 06/11/18 07:35 Dose: 1 amp Baclofen (Lioresal -) 10 mg PO TID [facility] Last Admin: 06/11/18 05:42 Dose: Not Given Bisacodyl (Dulcolax Suppository -) 10 mg RC DAILY PRN PRN Reason: CONSTIPATION Calcium Carbonate/Cholecalciferol (Os-Hitesh 500+D -) 1 tab PO BID [facility] Last Admin: 06/10/18 22:51 Dose: Not Given Chlorhexidine Gluconate (Peridex -) 30 ml MM BID [facility] Last Admin: 06/10/18 22:51 Dose: Not Given Cholecalciferol (Vitamin D3 -) 400 unit PO DAILY [facility] Heparin Sodium (Porcine) (Heparin -) 5,000 unit SQ TID [facility] Last Admin: 06/11/18 05:41 Dose: 5,000 unit Vancomycin HCl 1,250 mg/ (Dextrose) 250 mls @ 250 mls/2 hr IVPB Q24H [facility]; Protocol Last Admin: 06/10/18 21:23 Dose: 250 mls/2 hr Azithromycin 500 mg/ Dextrose 250 mls @ 250 mls/hr IVPB DAILY [facility] Last Admin: 06/10/18 11:29 Dose: 250 mls/hr Piperacillin Sod/Tazobactam (Sod 3.375 gm/ Dextrose) 50 mls @ 100 mls/hr IVPB Q8H-IV [facility]; Protocol Last Admin: 06/11/18 02:58 Dose: 100 mls/hr Dextrose/Lactated Ringer's (D5-Lr -) 1,000 mls @ 100 mls/hr IV ASDIR [facility] Last Admin: 06/10/18 18:19 Dose: 100 mls/hr Levetiracetam (Keppra Injection -) 500 mg IVPB BID [facility] Last Admin: 06/10/18 22:50 Dose: 500 mg Loratadine (Claritin -) 10 mg PO DAILY [facility] Last Admin: 06/10/18 15:26 Dose: Not Given Lorazepam (Ativan Injection -) 1 mg IVPUSH TID [facility] Last Admin: 06/11/18 05:39 Dose: 1 mg Non-Formulary Medication (Olopatadine Hcl [Pataday]) 2.5 ml OP DAILY [facility] Pantoprazole Sodium (Protonix -) 20 mg PO DAILY [facility] Last Admin: 06/10/18 15:26 Dose: Not Given Psyllium Hydrophilic Mucilloid (Metamucil (Sugar-Free) -) 5.85 gm PO DAILY [facility] Last Admin: 06/10/18 15:26 Dose: Not Given Ranitidine HCl (Zantac -) 150 mg PO BID [facility] Last Admin: 06/10/18 22:51 Dose: Not Given Senna (Senna -) 2 tab PO DAILY [facility] Microbiology 06/09/18 22:59 Urine - Urine - Catheterized Urine Culture - Final NO GROWTH OBTAINED 06/09/18 18:00 Blood - Peripheral Venous Blood Culture - Preliminary NO GROWTH OBTAINED AFTER 24 HOURS, INCUBATION TO CONTINUE FOR 4 DAYS. 06/09/18 17:30 Blood - Peripheral Venous Blood Culture - Preliminary NO GROWTH OBTAINED AFTER 24 HOURS, INCUBATION TO CONTINUE FOR 4 DAYS. 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 CT chest noted. Standing and prn nebs. Check PNA studies. Flu swab neg. FOllow up blood cx, Sputum cx as available. Speech/swallow input noted, NPO Aspiration precautions. IVF D5-LR. KEppra to IV, Ativan IV while NPO. Seizure precautions. DVTPPX lovenox DIspo pending clinical improvement. Plan discussed with aide at bedside and all questions answered.
[2018-06-11] MEDS: levETIRAcetam 500 MG/5 ML INJECTION VIAL IVPB SCH ×2 (10:08→22:21)
[2018-06-11 10:55] LABS: BASO % 0.2 % (0-2.0); EOS % 0.6 % (0-4.5); HEMATOCRIT 31.2 % (32.4-45.2); HEMOGLOBIN 10.7 GM/dL (10.7-15.3); LYMPH % 16.6 % (8-40); MCH 31.1 pg (25.7-33.7); MCHC 34.2 g/dl (32.0-36.0); MEAN CELL VOLUME 90.9 fl (80-96); MEAN PLT VOLUME 7.6 fl (7.5-11.1); MONO % 16.3 % (3.8-10.2); NEUT % 66.3 % (42.8-82.8); PLATELET COUNT 223 K/MM3 (134-434); RBC 3.44 M/mm3 (3.60-5.2); RDW 14.2 % (11.6-15.6); WHITE BLOOD COUNT 4.4 K/mm3 (4.0-10.0)
[2018-06-11] MEDS: LORATADINE 10 MG TABLET PO SCH (10:56)
[2018-06-11] MEDS: PSYLLIUM 5.85 GM PACKET PO SCH (10:56)
[2018-06-11] MEDS: CALCIUM 500MG/VIT-D 200 UNITS COMBO TABLET (FP) PO SCH ×2 (10:57→21:26)
[2018-06-11] MEDS: SENNOSIDES 8.6MG TABLET (FP) PO SCH (10:57)
[2018-06-11] MEDS: CHLORHEXIDINE GLUCONATE 0.12% 15ML CUP MM SCH ×2 (10:57→21:26)
[2018-06-11] MEDS: RANITIDINE HCL 150 MG TABLET (FP) PO SCH ×2 (10:57→21:26)
[2018-06-11] MEDS: CHOLECALCIFEROL (VITAMIN D3) 400 UNIT TABLET (FP) PO SCH (10:57)
[2018-06-11] MEDS: PANTOPRAZOLE 20 MG TABLET (FP) PO SCH (10:57)
[2018-06-11] MEDS ORDERED: PT OWN MED DRAWER 7, Y5N ONE ×2 (11:04→20:05)
[2018-06-11 11:25] LABS: ALBUMIN 2.5 g/dl (3.4-5.0); ALK PHOS 82 U/L (45-117); ANION GAP 12 MMOL/L (8-16); BILIRUBIN,TOTAL 0.5 mg/dL (0.2-1); BLOOD UREA NITROGEN 8 mg/dL (7-18); CHLORIDE 106 mmol/L (98-107); CO2 23 mmol/L (21-32); CREATININE 0.3 mg/dL (0.55-1.3); GLUCOSE,RANDOM 77 mg/dL (74-106); POTASSIUM 3.5 mmol/L (3.5-5.1); SGOT/AST 90 U/L (15-37); SGPT/ALT 42 U/L (13-61); SODIUM 142 mmol/L (136-145); TOT PROT 5.8 g/dl (6.4-8.2)
[2018-06-11] MEDS: AZITHROMYCIN IVPB 500 MG in DEXTROSE 5%-WATER - 250 ML IVPB SCH (13:10)
[2018-06-11] MEDS: AZITHROMYCIN IVPB 250 ML IVPB SCH (13:13)
[2018-06-11] MEDS: DEXTROSE 5%-LACTATED RINGERS 1,000 ML IV SCH ×2 (17:04→19:12)
--- NOTE | 2018-06-11 17:19 | PN ---
Progress Note, Physician History of Present Illness: Pt with mild tachypnea. Febrile to 102.7F. Nonverbal, mentally retarded. - Current Medication List Current Medications: Active Medications Acetaminophen (Ofirmev Injection -) 750 mg IVPB Q8H PRN PRN Reason: FEVER Last Admin: 06/11/18 05:38 Dose: 750 mg Albuterol Sulfate (Ventolin 0.083% Nebulizer Soln -) 1 amp NEB RQID [facility] Last Admin: 06/11/18 11:56 Dose: 1 amp Baclofen (Lioresal -) 10 mg PO TID [facility] Last Admin: 06/11/18 14:50 Dose: Not Given Bisacodyl (Dulcolax Suppository -) 10 mg RC DAILY PRN PRN Reason: CONSTIPATION Calcium Carbonate/Cholecalciferol (Os-Hitesh 500+D -) 1 tab PO BID [facility] Last Admin: 06/11/18 10:57 Dose: Not Given Chlorhexidine Gluconate (Peridex -) 30 ml MM BID [facility] Last Admin: 06/11/18 10:57 Dose: Not Given Cholecalciferol (Vitamin D3 -) 400 unit PO DAILY [facility] Last Admin: 06/11/18 10:57 Dose: Not Given Heparin Sodium (Porcine) (Heparin -) 5,000 unit SQ TID [facility] Last Admin: 06/11/18 14:49 Dose: 5,000 unit Vancomycin HCl 1,250 mg/ (Dextrose) 250 mls @ 250 mls/2 hr IVPB Q24H [facility]; Protocol Last Admin: 06/10/18 21:23 Dose: 250 mls/2 hr Piperacillin Sod/Tazobactam (Sod 3.375 gm/ Dextrose) 50 mls @ 100 mls/hr IVPB Q8H-IV [facility]; Protocol Last Admin: 06/11/18 17:04 Dose: 100 mls/hr Dextrose/Lactated Ringer's (D5-Lr -) 1,000 mls @ 100 mls/hr IV ASDIR [facility] Last Admin: 06/11/18 17:04 Dose: 100 mls/hr Azithromycin (Zithromax 500mg Ivpb (Pre-Docked)) 250 mls @ 250 mls/hr IVPB DAILY [facility] Stop: 06/12/18 10:59 Last Admin: 06/11/18 13:13 Dose: 250 mls/hr Levetiracetam (Keppra Injection -) 500 mg IVPB BID [facility] Last Admin: 06/11/18 10:08 Dose: 500 mg Loratadine (Claritin -) 10 mg PO DAILY [facility] Last Admin: 06/11/18 10:56 Dose: Not Given Lorazepam (Ativan Injection -) 1 mg IVPUSH TID [facility] Last Admin: 06/11/18 14:49 Dose: 1 mg Non-Formulary Medication (Olopatadine Hcl [Pataday]) 2.5 ml OP DAILY [facility] Pantoprazole Sodium (Protonix -) 20 mg PO DAILY [facility] Last Admin: 06/11/18 10:57 Dose: Not Given Psyllium Hydrophilic Mucilloid (Metamucil (Sugar-Free) -) 5.85 gm PO DAILY [facility] Last Admin: 06/11/18 10:56 Dose: Not Given Ranitidine HCl (Zantac -) 150 mg PO BID [facility] Last Admin: 06/11/18 10:57 Dose: Not Given Senna (Senna -) 2 tab PO DAILY [facility] Last Admin: 06/11/18 10:57 Dose: Not Given - Objective Vital Signs: Vital Signs Temperature 98.6 F 06/11/18 12:04 Pulse Rate 112 H 06/11/18 09:30 Respiratory Rate 18 06/11/18 09:30 Blood Pressure 112/60 06/11/18 09:30 O2 Sat by Pulse Oximetry (%) 97 06/11/18 09:00 Neck: Yes: Supple Cardiovascular: Yes: Tachycardia Respiratory: Yes: Rhonchi Gastrointestinal: Yes: Normal Bowel Sounds, Soft Extremities: Yes: Other (spastic) Integumentary: Yes: WNL Neurological: Yes: Other (nonverbal, not following commands) Labs: CBC, BMP 06/11/18 10:30 06/11/18 10:30 INR, PTT INR 1.14 (0.83-1.09) H 06/10/18 06:00 Microbiology 06/09/18 22:59 Urine - Urine - Catheterized Urine Culture - Final NO GROWTH OBTAINED 06/09/18 18:00 Blood - Peripheral Venous Blood Culture - Preliminary NO GROWTH OBTAINED AFTER 24 HOURS, INCUBATION TO CONTINUE FOR 4 DAYS. 06/09/18 17:30 Blood - Peripheral Venous Blood Culture - Preliminary NO GROWTH OBTAINED AFTER 24 HOURS, INCUBATION TO CONTINUE FOR 4 DAYS. 06/10/18 14:30 Nasopharyngeal Swab Influenza Types A,B Antigen - Final 06/10/18 14:30 Nasopharyngeal Swab - Final - ....Imaging Chest X-ray: Report Reviewed Problem List - Problems (1) Fever Code(s): R50.9 - FEVER, UNSPECIFIED (2) Cerebral palsy Code(s): G80.9 - CEREBRAL PALSY, UNSPECIFIED (3) Functional quadriplegia Code(s): R53.2 - FUNCTIONAL QUADRIPLEGIA (4) Mental retardation Code(s): F79 - UNSPECIFIED INTELLECTUAL DISABILITIES (5) Seizures Code(s): R56.9 - UNSPECIFIED CONVULSIONS Assessment/Plan 52 y.o. female [place] resident with PMH of mental retardation, cerebral palsy, spastic quadriplegia, seizure disorder admitted for shortness of breath and fever PNA - HCAP vs Aspiration Sepsis Pt febrile, mildly tachypneic Continue broad spectrum antibiotics empirically for now Vancomycin Trough prior to 4th dose, monitor renal function Blood cultures no growth Aspiration precautions Continue monitor vitals closely
[2018-06-11] MEDS: VANCOMYCIN 1,250 MG in DEXTROSE 5%-WATER - 250 ML IVPB SCH (20:51)
[2018-06-12] MEDS: DEXTROSE 5%-LACTATED RINGERS 1,000 ML IV SCH ×2 (01:00→10:09)
[2018-06-12] MEDS ORDERED: PIPERACILLIN/TAZOBACTAM 3.375 GM VIAL IVPB ONE ×2 (02:42→09:32)
[2018-06-12] MEDS ORDERED: DEXTROSE 5%-WATER - 50 ML IVPB ONE ×2 (02:43→09:32)
[2018-06-12] MEDS: PIPERACILLIN/TAZOB 3.375 GM 3.375 GM in DEXTROSE 5%-WATER - 50 ML IVPB SCH ×3 (02:51→18:11)
[2018-06-12] MEDS: HEPARIN NA (PORCINE) 5,000 UNITS/ML 1ML VIAL SQ SCH ×3 (05:41→21:18)
[2018-06-12] MEDS: LORazepam 2 MG/ML SDV VIAL IVPUSH SCH ×4 (05:42→21:18)
[2018-06-12] MEDS: BACLOFEN 10 MG TABLET (FP) PO SCH ×3 (05:48→21:22)
[2018-06-12] MEDS: ACETAMINOPHEN 1000 MG/100 ML VIAL (NON FORMULARY) IVPB PRN (06:31)
[2018-06-12] MEDS: ALBUTEROL SO4 0.083% IH SOL 2.5 MG/3 ML VIAL.NEB. NEB SCH ×4 (07:40→20:51)
[2018-06-12 08:38] LABS: BASO % 0.3 % (0-2.0); EOS % 1.5 % (0-4.5); HEMATOCRIT 29.9 % (32.4-45.2); LYMPH % 15.1 % (8-40); MCH 30.4 pg (25.7-33.7); MCHC 33.3 g/dl (32.0-36.0); MEAN CELL VOLUME 91.3 fl (80-96); MEAN PLT VOLUME 7.5 fl (7.5-11.1); MONO % 12.4 % (3.8-10.2); NEUT % 70.7 % (42.8-82.8); PLATELET COUNT 215 K/MM3 (134-434); RBC 3.28 M/mm3 (3.60-5.2); RDW 14.1 % (11.6-15.6); WHITE BLOOD COUNT 4.7 K/mm3 (4.0-10.0)
[2018-06-12 08:52] LABS: ANION GAP 7 MMOL/L (8-16); BLOOD UREA NITROGEN 6 mg/dL (7-18); CALCIUM 8.1 mg/dL (8.5-10.1); CHLORIDE 104 mmol/L (98-107); CO2 27 mmol/L (21-32); CREATININE 0.4 mg/dL (0.55-1.3); GLUCOSE,RANDOM 111 mg/dL (74-106); MAGNESIUM 1.8 mg/dL (1.8-2.4); PHOSPHOROUS 2.8 mg/dL (2.5-4.9); POTASSIUM 3.2 mmol/L (3.5-5.1); SODIUM 139 mmol/L (136-145)
[2018-06-12] MEDS: levETIRAcetam 500 MG/5 ML INJECTION VIAL IVPB SCH ×2 (10:09→21:18)
[2018-06-12] MEDS: LORATADINE 10 MG TABLET PO SCH (10:10)
[2018-06-12] MEDS: RANITIDINE HCL 150 MG TABLET (FP) PO SCH ×2 (10:10→21:18)
[2018-06-12] MEDS: AZITHROMYCIN IVPB 250 ML IVPB SCH (10:10)
[2018-06-12] MEDS: CHOLECALCIFEROL (VITAMIN D3) 400 UNIT TABLET (FP) PO SCH (10:10)
[2018-06-12] MEDS: CHLORHEXIDINE GLUCONATE 0.12% 15ML CUP MM SCH ×2 (10:11→21:19)
[2018-06-12] MEDS: CALCIUM 500MG/VIT-D 200 UNITS COMBO TABLET (FP) PO SCH ×2 (10:11→21:19)
[2018-06-12] MEDS: SENNOSIDES 8.6MG TABLET (FP) PO SCH (10:11)
[2018-06-12] MEDS: PANTOPRAZOLE 20 MG TABLET (FP) PO SCH (10:11)
[2018-06-12] MEDS: PSYLLIUM 5.85 GM PACKET PO SCH (10:11)
[2018-06-12] MEDS: KCL 10 MEQ IVPB 10 MEQ/100 ML INFUS.BAG IVPB SCH ×3 (11:45→14:27)
[2018-06-12] MEDS ORDERED: ALBUTEROL SO4 0.042% IH SOL 1.25 MG/3 ML VIAL.NEB NEB PRN (14:30)
[2018-06-12] MEDS ORDERED: methylPREDNISolone NA SUCC 40 MG/1 ML VIAL IVPUSH ONE (15:30)
--- NOTE | 2018-06-12 16:39 | PN ---
Progress Note, Physician History of Present Illness: Pt appears comfortable. Tmax 101.2, currently 99.4F. - Current Medication List Current Medications: Active Medications Albuterol Sulfate (Ventolin 0.083% Nebulizer Soln -) 1 amp NEB RQID [facility] Last Admin: 06/12/18 15:00 Dose: 1 amp Albuterol Sulfate (Ventolin 0.042trength) -) 1 amp NEB Q3H PRN PRN Reason: SHORT OF BREATH/WHEEZING Baclofen (Lioresal -) 10 mg PO TID [facility] Last Admin: 06/12/18 14:26 Dose: Not Given Bisacodyl (Dulcolax Suppository -) 10 mg RC DAILY PRN PRN Reason: CONSTIPATION Calcium Carbonate/Cholecalciferol (Os-Hitesh 500+D -) 1 tab PO BID [facility] Last Admin: 06/12/18 10:11 Dose: Not Given Chlorhexidine Gluconate (Peridex -) 30 ml MM BID [facility] Last Admin: 06/12/18 10:11 Dose: Not Given Cholecalciferol (Vitamin D3 -) 400 unit PO DAILY [facility] Last Admin: 06/12/18 10:10 Dose: Not Given Heparin Sodium (Porcine) (Heparin -) 5,000 unit SQ TID [facility] Last Admin: 06/12/18 13:32 Dose: 5,000 unit Vancomycin HCl 1,250 mg/ (Dextrose) 250 mls @ 250 mls/2 hr IVPB Q24H [facility]; Protocol Last Admin: 06/11/18 20:51 Dose: 250 mls/2 hr Piperacillin Sod/Tazobactam (Sod 3.375 gm/ Dextrose) 50 mls @ 100 mls/hr IVPB Q8H-IV [facility]; Protocol Last Admin: 06/12/18 09:37 Dose: 100 mls/hr Dextrose/Lactated Ringer's (D5-Lr -) 1,000 mls @ 100 mls/hr IV ASDIR [facility] Last Admin: 06/12/18 10:09 Dose: 100 mls/hr Levetiracetam (Keppra Injection -) 500 mg IVPB BID [facility] Last Admin: 06/12/18 10:09 Dose: 500 mg Loratadine (Claritin -) 10 mg PO DAILY [facility] Last Admin: 06/12/18 10:10 Dose: Not Given Lorazepam (Ativan Injection -) 2 mg IVPUSH TID [facility] Last Admin: 06/12/18 15:33 Dose: 2 mg Methylprednisolone Sodium Succinate (Solu-Medrol -) 40 mg IVPUSH BID [facility] Non-Formulary Medication (Olopatadine Hcl [Pataday]) 2.5 ml OP DAILY [facility] Pantoprazole Sodium (Protonix -) 20 mg PO DAILY [facility] Last Admin: 06/12/18 10:11 Dose: Not Given Psyllium Hydrophilic Mucilloid (Metamucil (Sugar-Free) -) 5.85 gm PO DAILY [facility] Last Admin: 06/12/18 10:11 Dose: Not Given Ranitidine HCl (Zantac -) 150 mg PO BID [facility] Last Admin: 06/12/18 10:10 Dose: Not Given Senna (Senna -) 2 tab PO DAILY [facility] Last Admin: 06/12/18 10:11 Dose: Not Given - Objective Vital Signs: Vital Signs Temperature 100.4 F H 06/12/18 10:00 Pulse Rate 115 H 06/12/18 10:00 Respiratory Rate 22 H 06/12/18 10:00 Blood Pressure 110/64 06/12/18 10:00 O2 Sat by Pulse Oximetry (%) 97 06/12/18 09:00 Constitutional: Yes: No Distress, Calm Cardiovascular: Yes: Tachycardia Respiratory: Yes: Diminished (on Rt) Gastrointestinal: Yes: Normal Bowel Sounds, Soft Extremities: Yes: WNL Edema: No Integumentary: Yes: WNL Neurological: Yes: Other (arousable) Labs: CBC, BMP 06/12/18 07:13 06/12/18 07:13 INR, PTT INR 1.14 (0.83-1.09) H 06/10/18 06:00 Microbiology 06/09/18 18:00 Blood - Peripheral Venous Blood Culture - Preliminary NO GROWTH OBTAINED AFTER 48 HOURS, INCUBATION TO CONTINUE FOR 3 DAYS. 06/09/18 17:30 Blood - Peripheral Venous Blood Culture - Preliminary NO GROWTH OBTAINED AFTER 48 HOURS, INCUBATION TO CONTINUE FOR 3 DAYS. 06/09/18 22:59 Urine - Urine - Catheterized Urine Culture - Final NO GROWTH OBTAINED 06/10/18 14:30 Nasopharyngeal Swab Influenza Types A,B Antigen - Final 06/10/18 14:30 Nasopharyngeal Swab - Final Problem List - Problems (1) Fever Code(s): R50.9 - FEVER, UNSPECIFIED (2) Cerebral palsy Code(s): G80.9 - CEREBRAL PALSY, UNSPECIFIED (3) Functional quadriplegia Code(s): R53.2 - FUNCTIONAL QUADRIPLEGIA (4) Mental retardation Code(s): F79 - UNSPECIFIED INTELLECTUAL DISABILITIES (5) Seizures Code(s): R56.9 - UNSPECIFIED CONVULSIONS Assessment/Plan 52 y.o. female [place] resident with PMH of mental retardation, cerebral palsy, spastic quadriplegia, seizure disorder admitted for shortness of breath and fever RUL PNA Sepsis Fever -- pt with Tmax 101.2, appears to be in less distress -- continue current antibiotics -- Vancomycin trough prior to tonight's dose ordered --Blood cultures no growth on admission, will repeat --Aspiration precautions, continue suction Continue monitor vitals closely
--- NOTE | 2018-06-12 17:25 | PN ---
Physical Exam: SUBJECTIVE: Patient seen and examined, non verbal, wheezy, unable to assess for ROS. OBJECTIVE: Vital Signs Period Temp Pulse Resp BP Sys/Ascencio Pulse Ox Last 24 Hr 100.4 F-101.6 F 107-115 21-24 110-116/64-72 97-97 General: lying in bed, less rhoncherous than yesterday Chest: improved coarse rhonchi today, positive air entry. limited exam due to body habitus and lack of effort Abdomen:Soft, ND, positive bowel sounds Extremities: contractures CVS'S1s2 regular, tachycardic. Laboratory Results - last 24 hr 06/12/18 06/12/18 07:13 07:13 WBC 4.7 RBC 3.28 L Hgb 10.0 L Hct 29.9 L MCV 91.3 MCH 30.4 MCHC 33.3 RDW 14.1 Plt Count 215 MPV 7.5 Absolute Neuts (auto) 3.4 Neutrophils % 70.7 Lymphocytes % 15.1 Monocytes % 12.4 H Eosinophils % 1.5 D Basophils % 0.3 Nucleated RBC % 0 Sodium 139 Potassium 3.2 L Chloride 104 Carbon Dioxide 27 Anion Gap 7 L BUN 6 L Creatinine 0.4 L Creat Clearance w eGFR > 60 Random Glucose 111 H Calcium 8.1 L Phosphorus 2.8 Magnesium 1.8 Active Medications Generic Name Dose Route Start Last Admin Trade Name Freq PRN Reason Stop Dose Admin Albuterol Sulfate 1 amp 06/10/18 16:00 06/12/18 15:00 Ventolin 0.083% Nebulizer Soln - NEB 1 amp RQID [facility] Administration Albuterol Sulfate 1 amp 06/12/18 14:30 Ventolin 0.042trength) - NEB Q3H PRN SHORT OF BREATH/WHEEZING Baclofen 10 mg 06/10/18 08:00 06/12/18 14:26 Lioresal - PO Not Given TID [facility] Bisacodyl 10 mg 06/10/18 14:38 Dulcolax Suppository - RC DAILY PRN CONSTIPATION Calcium Carbonate/Cholecalciferol 1 tab 06/10/18 22:00 06/12/18 10:11 Os-Hitesh 500+D - PO Not Given BID [facility] Chlorhexidine Gluconate 30 ml 06/10/18 22:00 06/12/18 10:11 Peridex - MM Not Given BID [facility] Cholecalciferol 400 unit 06/11/18 10:00 06/12/18 10:10 Vitamin D3 - PO Not Given DAILY [facility] Heparin Sodium (Porcine) 5,000 unit 06/10/18 22:00 06/12/18 13:32 Heparin - SQ 5,000 unit TID [facility] Administration Vancomycin HCl 1,250 mg/ 250 mls @ 250 mls/2 hr 06/09/18 20:45 06/11/18 20:51 Dextrose IVPB 250 mls/2 hr Q24H [facility] Administration Protocol Piperacillin Sod/Tazobactam 50 mls @ 100 mls/hr 06/10/18 18:00 06/12/18 09:37 Sod 3.375 gm/ Dextrose IVPB 100 mls/hr Q8H-IV [facility] Administration Protocol Dextrose/Lactated Ringer's 1,000 mls @ 100 mls/hr 06/10/18 18:15 06/12/18 10: 09 D5-Lr - IV 100 mls/hr ASDIR [facility] Administration Levetiracetam 500 mg 06/10/18 22:00 06/12/18 10:09 Keppra Injection - IVPB 500 mg BID [facility] Administration Loratadine 10 mg 06/10/18 14:45 06/12/18 10:10 Claritin - PO Not Given DAILY [facility] Lorazepam 2 mg 06/12/18 15:30 06/12/18 15:33 Ativan Injection - IVPUSH 2 mg TID [facility] Administration Methylprednisolone Sodium Succinate 40 mg 06/12/18 22:00 Solu-Medrol - IVPUSH BID [facility] Non-Formulary Medication 2.5 ml 06/11/18 10:00 Olopatadine Hcl [Pataday] OP DAILY [facility] Pantoprazole Sodium 20 mg 06/10/18 14:45 06/12/18 10:11 Protonix - PO Not Given DAILY [facility] Psyllium Hydrophilic Mucilloid 5.85 gm 06/10/18 14:45 06/12/18 10:11 Metamucil (Sugar-Free) - PO Not Given DAILY [facility] Ranitidine HCl 150 mg 06/10/18 22:00 06/12/18 10:10 Zantac - PO Not Given BID [facility] Senna 2 tab 06/11/18 10:00 06/12/18 10:11 Senna - PO Not Given DAILY [facility] Microbiology 06/09/18 18:00 Blood - Peripheral Venous Blood Culture - Preliminary NO GROWTH OBTAINED AFTER 48 HOURS, INCUBATION TO CONTINUE FOR 3 DAYS. 06/09/18 17:30 Blood - Peripheral Venous Blood Culture - Preliminary NO GROWTH OBTAINED AFTER 48 HOURS, INCUBATION TO CONTINUE FOR 3 DAYS. 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 ID input noted. Urine NA studies (straight cath x 1) Increased wheezing, start solumedrol 40 mg BID, standing and prn nebs. Pulmonary input. Aspiration precautions, chest PT as able. CT chest noted. Flu swab neg. Blood cx neg so far, Sputum cx as available. Speech/swallow input noted, NPO IVF D5-LR. KEppra to IV, Feet twitching, increase ativan 2 mg TID, (equivalent dosing for home valium), monitor for respiratory depression. Seizure precautions. DVTPPX lovenox DIspo pending clinical improvement. Plan discussed with aide at bedside and nursing in detail and all questions answered. Visit type - Emergency Visit Emergency Visit: Yes ED Registration Date: 06/09/18 Care time: The patient presented to the Emergency Department on the above date and was hospitalized for further evaluation of their emergent condition. - New Patient This patient is new to me today: No - Critical Care Critical Care patient: No - Discharge Referral Referred to [facility] No
[2018-06-12] MEDS: methylPREDNISolone NA SUCC 40 MG/1 ML VIAL IVPUSH SCH (21:18)
[2018-06-12] MEDS: VANCOMYCIN 1,250 MG in DEXTROSE 5%-WATER - 250 ML IVPB SCH (21:18)
[2018-06-13] MEDS ORDERED: ACETAMINOPHEN 1000 MG/100 ML VIAL (NON FORMULARY) IVPB ONE (00:15)
[2018-06-13] MEDS ORDERED: PIPERACILLIN/TAZOBACTAM 3.375 GM VIAL IVPB ONE ×3 (00:28→16:09)
[2018-06-13] MEDS: PIPERACILLIN/TAZOB 3.375 GM 3.375 GM in DEXTROSE 5%-WATER - 50 ML IVPB SCH ×3 (01:30→17:09)
[2018-06-13] MEDS: DEXTROSE 5%-LACTATED RINGERS 1,000 ML IV SCH ×2 (05:18→17:12)
[2018-06-13] MEDS: LORazepam 2 MG/ML SDV VIAL IVPUSH SCH ×3 (05:19→21:45)
[2018-06-13] MEDS: HEPARIN NA (PORCINE) 5,000 UNITS/ML 1ML VIAL SQ SCH ×3 (05:19→21:44)
[2018-06-13] MEDS: BACLOFEN 10 MG TABLET (FP) PO SCH ×3 (05:20→22:09)
[2018-06-13] MEDS: ALBUTEROL SO4 0.083% IH SOL 2.5 MG/3 ML VIAL.NEB. NEB SCH ×4 (07:15→22:30)
[2018-06-13 07:48] LABS: BASO % 0.6 % (0-2.0); EOS % 0.1 % (0-4.5); HEMATOCRIT 32.8 % (32.4-45.2); HEMOGLOBIN 10.7 GM/dL (10.7-15.3); LYMPH % 14.1 % (8-40); MCHC 32.7 g/dl (32.0-36.0); MEAN CELL VOLUME 91.6 fl (80-96); MEAN PLT VOLUME 7.8 fl (7.5-11.1); NEUT % 82.2 % (42.8-82.8); RBC 3.58 M/mm3 (3.60-5.2); RDW 14.3 % (11.6-15.6); WHITE BLOOD COUNT 4.1 K/mm3 (4.0-10.0)
[2018-06-13] MEDS: levETIRAcetam 500 MG/5 ML INJECTION VIAL IVPB SCH ×2 (09:37→21:44)
[2018-06-13] MEDS: methylPREDNISolone NA SUCC 40 MG/1 ML VIAL IVPUSH SCH (09:38)
[2018-06-13] MEDS: CHLORHEXIDINE GLUCONATE 0.12% 15ML CUP MM SCH ×2 (09:52→22:09)
[2018-06-13] MEDS: CALCIUM 500MG/VIT-D 200 UNITS COMBO TABLET (FP) PO SCH ×2 (09:52→22:09)
[2018-06-13] MEDS: PSYLLIUM 5.85 GM PACKET PO SCH (09:52)
[2018-06-13] MEDS: LORATADINE 10 MG TABLET PO SCH (09:52)
[2018-06-13] MEDS: PANTOPRAZOLE 20 MG TABLET (FP) PO SCH (09:52)
[2018-06-13] MEDS: CHOLECALCIFEROL (VITAMIN D3) 400 UNIT TABLET (FP) PO SCH (09:53)
[2018-06-13] MEDS: RANITIDINE HCL 150 MG TABLET (FP) PO SCH ×2 (09:53→22:10)
[2018-06-13] MEDS: SENNOSIDES 8.6MG TABLET (FP) PO SCH (09:53)
[2018-06-13 10:03] LABS: ALBUMIN 2.4 g/dl (3.4-5.0); ALK PHOS 82 U/L (45-117); ANION GAP 6 MMOL/L (8-16); BILIRUBIN,TOTAL 0.3 mg/dL (0.2-1); BLOOD UREA NITROGEN 6 mg/dL (7-18); CHLORIDE 105 mmol/L (98-107); CO2 27 mmol/L (21-32); CREATININE 0.4 mg/dL (0.55-1.3); GLUCOSE,RANDOM 152 mg/dL (74-106); POTASSIUM 3.7 mmol/L (3.5-5.1); SGOT/AST 72 U/L (15-37); SGPT/ALT 49 U/L (13-61); SODIUM 138 mmol/L (136-145); TOT PROT 5.8 g/dl (6.4-8.2)
[2018-06-13] MEDS ORDERED: AZITHROMYCIN IVPB SCH (10:15)
--- NOTE | 2018-06-13 10:17 | PN ---
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 - Current Medication List Current Medications: Active Medications Albuterol Sulfate (Ventolin 0.083% Nebulizer Soln -) 1 amp NEB RQID [facility] Last Admin: 06/13/18 07:15 Dose: 1 amp Albuterol Sulfate (Ventolin 0.042trength) -) 1 amp NEB Q3H PRN PRN Reason: SHORT OF BREATH/WHEEZING Baclofen (Lioresal -) 10 mg PO TID [facility] Last Admin: 06/13/18 05:20 Dose: Not Given Bisacodyl (Dulcolax Suppository -) 10 mg RC DAILY PRN PRN Reason: CONSTIPATION Calcium Carbonate/Cholecalciferol (Os-Hitesh 500+D -) 1 tab PO BID [facility] Last Admin: 06/13/18 09:52 Dose: Not Given Chlorhexidine Gluconate (Peridex -) 30 ml MM BID [facility] Last Admin: 06/13/18 09:52 Dose: Not Given Cholecalciferol (Vitamin D3 -) 400 unit PO DAILY [facility] Last Admin: 06/13/18 09:53 Dose: Not Given Heparin Sodium (Porcine) (Heparin -) 5,000 unit SQ TID [facility] Last Admin: 06/13/18 05:19 Dose: 5,000 unit Piperacillin Sod/Tazobactam (Sod 3.375 gm/ Dextrose) 50 mls @ 100 mls/hr IVPB Q8H-IV [facility]; Protocol Last Admin: 06/13/18 09:34 Dose: 100 mls/hr Dextrose/Lactated Ringer's (D5-Lr -) 1,000 mls @ 100 mls/hr IV ASDIR [facility] Last Admin: 06/13/18 05:18 Dose: 100 mls/hr Azithromycin (Zithromax 500mg Ivpb (Pre-Docked)) 500 mls @ 250 mls/hr IVPB DAILY [facility] Levetiracetam (Keppra Injection -) 500 mg IVPB BID [facility] Last Admin: 06/13/18 09:37 Dose: 500 mg Loratadine (Claritin -) 10 mg PO DAILY [facility] Last Admin: 06/13/18 09:52 Dose: Not Given Lorazepam (Ativan Injection -) 2 mg IVPUSH TID [facility] Last Admin: 10/01/18 05:19 Dose: 2 mg Methylprednisolone Sodium Succinate (Solu-Medrol -) 40 mg IVPUSH BID [facility] Last Admin: 06/13/18 09:38 Dose: 40 mg Pantoprazole Sodium (Protonix -) 20 mg PO DAILY [facility] Last Admin: 06/13/18 09:52 Dose: Not Given Psyllium Hydrophilic Mucilloid (Metamucil (Sugar-Free) -) 5.85 gm PO DAILY [facility] Last Admin: 06/13/18 09:52 Dose: Not Given Ranitidine HCl (Zantac -) 150 mg PO BID [facility] Last Admin: 06/13/18 09:53 Dose: Not Given Senna (Senna -) 2 tab PO DAILY [facility] Last Admin: 06/13/18 09:53 Dose: Not Given - Objective Vital Signs: Vital Signs Temperature 98.5 F 06/13/18 05:00 Pulse Rate 64 06/13/18 05:00 Respiratory Rate 21 H 06/12/18 19:34 Blood Pressure 140/69 06/13/18 05:00 O2 Sat by Pulse Oximetry (%) 97 06/12/18 21:00 Constitutional: Yes: No Distress, Calm Cardiovascular: Yes: Regular Rate and Rhythm Respiratory: Yes: Regular, Rhonchi, Other Gastrointestinal: Yes: Normal Bowel Sounds, Soft Musculoskeletal: Yes: WNL Extremities: Yes: Other Neurological: Yes: Alert, Other Psychiatric: Yes: Alert Labs: CBC, BMP 06/13/18 06:10 06/13/18 08:49 INR, PTT INR 1.14 (0.83-1.09) H 06/10/18 06:00 Assessment/Plan patient with multiple medical issues and from [place] brought to the hospital for shallow breathing and fevers pneumonia fever lactic acidosis mental retardation plan continue zosyn will stop vanco rest as per the team patient improving
--- NOTE | 2018-06-13 10:17 | PN ---
Progress Note, MARKETING RESEARCH ANALYST - Note Progress Note: 52 yo seen at bedside for follow up to swallow eval with recommendations of NPO. At bedside strident quality still persist with congestion but no fever this a.m. Pt given po trials of puree with total assistance revealed good acceptance, reduced labial containment with tongue thrust. Pharyngeal swallow appears timely with positive s/s of aspiration at bedside. Increased respiration, increased strident sounds. Recommendations: continue NPO status at this time. Consider alternate method for offering meds and hydration. MARKETING RESEARCH ANALYST to follow up when congestion is resolved.
[2018-06-13] MEDS ORDERED: AZITHROMYCIN IVPB 250 ML IVPB SCH (10:58)
[2018-06-13] MEDS ORDERED: AZITHROMYCIN IVPB 500 MG/250 ML BAG IVPB SCH (10:59)
--- NOTE | 2018-06-13 11:45 | CON.PULM ---
Consult Consult Specialty:: PULM/CCM Referred by:: JUDY Reason for Consultation:: SOB - History of Present Illness Chief Complaint: SOB History of Present Illness: 52 F, past medical history of mental retardation, cerebral palsy, spastic quadriplegia, scoliosis, epilepsy, b/l foot contractures, b/l hip deformities s/ p Right hip surgery, constipation, myopia, astigmatism, and exotropia. Admitted from [place] due to fevers and difficulty breathing. Patient is not able to provide information so the history is taken from the chart. No apparent travel history or sick contacts. 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, Other (MR, cerebral palsy) Additional Medical History: Profound MR - Alcohol/Substance Use Hx Alcohol Use: No - Smoking History Smoking history: Unknown if ever smoked Have you smoked in the past 12 months: No Aproximately how many cigarettes per day: 0 - Social History Usual Living Arrangement: Intermediate ADL: Support Services Home Medications - Allergies Allergies/Adverse Reactions: Allergies Allergy/AdvReac Type Severity Reaction Status Date / Time No Known Allergies Allergy Verified 06/09/18 15:38 - Home Medications Home Medications: Ambulatory Orders Bisacodyl [Biscolax] 10 mg RC DAILY PRN 02/21/17 Calcium 500Mg/Vit-D 200 Units [Os-Hitesh 500+D -] 1 combo PO BID 02/21/17 Cetirizine HCl [24Hour Allergy] 10 mg PO DAILY 02/21/17 Chlorhexidine Gluconate 30 ml MM BID 02/21/17 Diazepam [Valium] 15 mg PO BID 02/21/17 Ranitidine [Zantac -] 150 mg PO BID 02/21/17 Sennosides [Senna] 2 tab PO DAILY 02/21/17 levETIRAcetam [Keppra Oral Solution -] 500 mg PO BID #1 bottle 03/02/17 Baclofen 10 mg PO TID 06/13/17 Albuterol 0.083% Nebulizer Suzanne [Ventolin 0.083% Nebulizer Soln -] 1 neb NEB Q6H 06/09/18 Cholecalciferol (Vitamin D3) [Vitamin D3] 400 unit PO DAILY 06/09/18 Diazepam [Diastat Acudial] 1 each RC DAILY 06/09/18 Olopatadine HCl [Pataday] 2.5 ml OP DAILY 06/09/18 Psyllium Husk [Metamucil] 0.4 gm PO DAILY 06/09/18 Omeprazole 20 mg PO DAILY 06/10/18 Review of Systems Unable to obtain ROS, reason: unable to provide Physical Exam Vital Sings: Vital Signs Temperature 98.5 F 06/13/18 05:00 Pulse Rate 64 06/13/18 05:00 Respiratory Rate 21 H 06/12/18 19:34 Blood Pressure 140/69 06/13/18 05:00 O2 Sat by Pulse Oximetry (%) 97 06/12/18 21:00 Constitutional: Yes: No Distress Eyes: Yes: Conjunctiva Clear, EOM Intact HENT: Yes: Atraumatic Neck: Yes: Supple, Trachea Midline Cardiovascular: Yes: Regular Rate and Rhythm Respiratory: Yes: Cough, Diminished, On Nasal O2, Rhonchi. No: Accessory Muscle Use, Rales, SOB, SOB on Exertion, Stridor, Tachypnea, Wheezes ...Inspection: Yes: WNL ...Clubbing: No Gastrointestinal: Yes: Normal Bowel Sounds, Soft Renal/: Yes: WNL Musculoskeletal: Yes: Joint Stiffness Extremities: Yes: Shortened Edema: No Peripheral Pulses WNL: Yes Integumentary: Yes: WNL Neurological: Yes: Alert Psychiatric: Yes: Alert Labs: CBC, BMP 06/13/18 06:10 06/13/18 08:49 Imaging - Results Chest X-ray: Report Reviewed, Image Reviewed Cat Scan: Report Reviewed, Image Reviewed Problem List - Problems (1) Pneumonia Code(s): J18.9 - PNEUMONIA, UNSPECIFIED ORGANISM (2) Aspiration pneumonia Code(s): J69.0 - PNEUMONITIS DUE TO INHALATION OF FOOD AND VOMIT (3) Fever Code(s): R50.9 - FEVER, UNSPECIFIED (4) Altered mental status Code(s): R41.82 - ALTERED MENTAL STATUS, UNSPECIFIED Qualifiers: Altered mental status type: unspecified Qualified Code(s): R41.82 - Altered mental status, unspecified (5) Cerebral palsy Code(s): G80.9 - CEREBRAL PALSY, UNSPECIFIED (6) Constipation Code(s): K59.00 - CONSTIPATION, UNSPECIFIED (7) Functional quadriplegia Code(s): R53.2 - FUNCTIONAL QUADRIPLEGIA (8) Mental retardation Code(s): F79 - UNSPECIFIED INTELLECTUAL DISABILITIES (9) Seizures Code(s): R56.9 - UNSPECIFIED CONVULSIONS Assessment/Plan ABX per ID Aspiration precautions Daily Medrol x 5 days O2 as needed Swallow evaluation noted VTE prophylaxis BD TX Will follow Thank you. Dr Alex
--- NOTE | 2018-06-13 13:30 | PN ---
Physical Exam: SUBJECTIVE: Patient seen and examined this AM. Resting comfortably in bed and doing better than before on appearance and as per aid. Weekend events noted. Pt is no longer shaking and is laying still and comfortable in bed. OBJECTIVE: Vital Signs Period Temp Pulse Resp BP Sys/Ascencio Pulse Ox Last 24 Hr 98.5 F-99.7 F 64-92 21 124-140/69-76 97 GENERAL: Awake, in no acute distress HEAD: Microcephalic, atraumatic. EYES: PERRL, no scleral icterus EARS, NOSE, THROAT: oropharynx clear with less mucus secretions. Moist mucous membranes. LUNGS: Course breath sounds improving, with some wheezing, poor inspiratory effort, audible gurgling improved HEART: Regular rate and rhythm, normal S1 and S2 without murmur ABDOMEN: Soft, nontender to palpation, normoactive bowel sounds MUSCULOSKELETAL: Severe levoscoliosis EXTREMITIES: Contracted SKIN: Warm, dry, no rashes or lesions noted Laboratory Results - last 24 hr 06/12/18 06/13/18 06/13/18 20:30 06:10 06:10 WBC 4.1 RBC 3.58 L Hgb 10.7 Hct 32.8 MCV 91.6 MCH 30.0 MCHC 32.7 RDW 14.3 Plt Count MPV 7.8 Absolute Neuts (auto) 3.4 Neutrophils % 82.2 Lymphocytes % 14.1 Monocytes % 3.0 L Eosinophils % 0.1 D Basophils % 0.6 Nucleated RBC % 0 Platelet Comment Platelet clumped see Sodium Cancelled Potassium Cancelled Chloride Cancelled Carbon Dioxide Cancelled Anion Gap Cancelled BUN Cancelled Creatinine Cancelled Creat Clearance w eGFR Cancelled Random Glucose Cancelled Calcium Cancelled Phosphorus Cancelled Magnesium Cancelled Total Bilirubin Cancelled AST Cancelled ALT Cancelled Alkaline Phosphatase Cancelled Total Protein Cancelled Albumin Cancelled Vancomycin Pre-Dose 5.9 L 06/13/18 08:49 WBC RBC Hgb Hct MCV MCH MCHC RDW Plt Count MPV Absolute Neuts (auto) Neutrophils % Lymphocytes % Monocytes % Eosinophils % Basophils % Nucleated RBC % Platelet Comment Sodium 138 Potassium 3.7 Chloride 105 Carbon Dioxide 27 Anion Gap 6 L BUN 6 L Creatinine 0.4 L Creat Clearance w eGFR > 60 Random Glucose 152 H Calcium 9.0 Phosphorus Magnesium Total Bilirubin 0.3 AST 72 H ALT 49 Alkaline Phosphatase 82 Total Protein 5.8 L Albumin 2.4 L Vancomycin Pre-Dose Active Medications Generic Name Dose Route Start Last Admin Trade Name Freq PRN Reason Stop Dose Admin Albuterol Sulfate 1 amp 06/10/18 16:00 06/13/18 11:27 Ventolin 0.083% Nebulizer Soln - NEB 1 amp RQID [facility] Administration Albuterol Sulfate 1 amp 06/12/18 14:30 Ventolin 0.042trength) - NEB Q3H PRN SHORT OF BREATH/WHEEZING Baclofen 10 mg 06/10/18 08:00 06/13/18 13:23 Lioresal - PO Not Given TID [facility] Bisacodyl 10 mg 06/10/18 14:38 Dulcolax Suppository - RC DAILY PRN CONSTIPATION Calcium Carbonate/Cholecalciferol 1 tab 06/10/18 22:00 06/13/18 09:52 Os-Hitesh 500+D - PO Not Given BID [facility] Chlorhexidine Gluconate 30 ml 06/10/18 22:00 06/13/18 09:52 Peridex - MM Not Given BID [facility] Cholecalciferol 400 unit 06/11/18 10:00 06/13/18 09:53 Vitamin D3 - PO Not Given DAILY [facility] Heparin Sodium (Porcine) 5,000 unit 06/10/18 22:00 06/13/18 13:22 Heparin - SQ 5,000 unit TID [facility] Administration Piperacillin Sod/Tazobactam 50 mls @ 100 mls/hr 06/10/18 18:00 06/13/18 09:34 Sod 3.375 gm/ Dextrose IVPB 100 mls/hr Q8H-IV [facility] Administration Protocol Dextrose/Lactated Ringer's 1,000 mls @ 100 mls/hr 06/10/18 18:15 06/13/18 05: 18 D5-Lr - IV 100 mls/hr ASDIR [facility] Administration Azithromycin 500 mg in 250 mls @ 250 mls/hr 06/13/18 10:59 Zithromax 500mg Ivpb (Pre-Docked) IVPB DAILY [facility] Levetiracetam 500 mg 06/10/18 22:00 06/13/18 09:37 Keppra Injection - IVPB 500 mg BID [facility] Administration Loratadine 10 mg 06/10/18 14:45 06/13/18 09:52 Claritin - PO Not Given DAILY [facility] Lorazepam 2 mg 06/12/18 15:30 06/13/18 13:23 Ativan Injection - IVPUSH 2 mg TID [facility] Administration Methylprednisolone Sodium Succinate 40 mg 06/14/18 10:00 Solu-Medrol - IVPUSH 06/18/18 10:01 DAILY [facility] Pantoprazole Sodium 20 mg 06/10/18 14:45 06/13/18 09:52 Protonix - PO Not Given DAILY [facility] Psyllium Hydrophilic Mucilloid 5.85 gm 06/10/18 14:45 06/13/18 09:52 Metamucil (Sugar-Free) - PO Not Given DAILY [facility] Ranitidine HCl 150 mg 06/10/18 22:00 06/13/18 09:53 Zantac - PO Not Given BID [facility] Senna 2 tab 06/11/18 10:00 06/13/18 09:53 Senna - PO Not Given DAILY [facility] ASSESSMENT/PLAN: 52 yo Female with PMH Cerebral Palsy with spastic quadriplegia, Mental Retardation, Epilepsy, Scoliosis presented from [facility] for vomiting followed by high fevers and cough. Sepsis secondary to Aspiration pneumonia vs pneumonitis -Febrile 103.5 on admission, Tachycardic, tachypnic -Fevers improving -CXR: No gross evidence of infiltration -Chest CT: RUL congestion suspicious for pneumonia vs pneumonitis -ID consult appreciated Zosyn 3.375 gm Q8 IV -Ventolin NEBs QID -Lactic acid mildly elevated on admission 3.6, resolved -Clinically improving Epilepsy -Keppra 500 mg PO BID switched to IV -Ativan 2 gm TID [facility] Spasticity -Pt on Baclofen 10 mg TID -Unable to give for now due to strict NPO -Will monitor carefully for increased spasticity and start baclofen as soon as pt tolerates PO -Discussed with pharmacy, no possible replacement without NG tube which pt will not tolerate -Increased Ativan to 2 gm TID DVT Prophylaxis -Heparin 5000 units SQ TID FEN -Fluids: D5 LR @ 100 cc/hr -Electrolytes: No electrolyte abnormalities, BMP in AM -Nutrition: Strict NPO until lethargy improves Disposition Med/Surg Visit type - Emergency Visit Emergency Visit: Yes ED Registration Date: 06/09/18 Care time: The patient presented to the Emergency Department on the above date and was hospitalized for further evaluation of their emergent condition. - New Patient This patient is new to me today: No - Critical Care Critical Care patient: No
--- NOTE | 2018-06-13 15:34 | PN ---
Teaching Attending Note Name of Resident: Pedro Morejon ATTENDING PHYSICIAN STATEMENT I saw and evaluated the patient. I reviewed the resident's note and discussed the case with the resident. I agree with the resident's findings and plan as documented with exceptions below. SUBJECTIVE: Patient seen and examined. non verbal but looks more comfortable. OBJECTIVE: Vital Signs Period Temp Pulse Resp BP Sys/Ascencio Pulse Ox Last 24 Hr 98.5 F-99.7 F 64-92 20-21 124-140/57-76 97-97 Intake & Output 06/10/18 06/11/18 06/12/18 06/13/18 23:59 23:59 23:59 23:59 Intake Total 2175 3600 2850 1375 Output Total 1 2 1 Balance 2175 3599 2848 1374 Weight 100 lb 6 oz General: lying in bed, breathing better Chest: improved air entry, decreased rhonchi today Abdomen:soft, NT, positive bowel sounds Extremities: contractures Active Medications Albuterol Sulfate (Ventolin 0.083% Nebulizer Soln -) 1 amp NEB RQID [facility] Last Admin: 06/13/18 16:08 Dose: 1 amp Albuterol Sulfate (Ventolin 0.042trength) -) 1 amp NEB Q3H PRN PRN Reason: SHORT OF BREATH/WHEEZING Baclofen (Lioresal -) 10 mg PO TID [facility] Last Admin: 06/13/18 13:23 Dose: Not Given Bisacodyl (Dulcolax Suppository -) 10 mg RC DAILY PRN PRN Reason: CONSTIPATION Calcium Carbonate/Cholecalciferol (Os-Hitesh 500+D -) 1 tab PO BID [facility] Last Admin: 06/13/18 09:52 Dose: Not Given Chlorhexidine Gluconate (Peridex -) 30 ml MM BID [facility] Last Admin: 06/13/18 09:52 Dose: Not Given Cholecalciferol (Vitamin D3 -) 400 unit PO DAILY [facility] Last Admin: 06/13/18 09:53 Dose: Not Given Heparin Sodium (Porcine) (Heparin -) 5,000 unit SQ TID [facility] Last Admin: 06/13/18 13:22 Dose: 5,000 unit Piperacillin Sod/Tazobactam (Sod 3.375 gm/ Dextrose) 50 mls @ 100 mls/hr IVPB Q8H-IV [facility]; Protocol Last Admin: 06/13/18 17:09 Dose: 100 mls/hr Dextrose/Lactated Ringer's (D5-Lr -) 1,000 mls @ 100 mls/hr IV ASDIR [facility] Last Admin: 06/13/18 17:12 Dose: 100 mls/hr Azithromycin (Zithromax 500mg Ivpb (Pre-Docked)) 500 mg in 250 mls @ 250 mls/ hr IVPB DAILY [facility] Levetiracetam (Keppra Injection -) 500 mg IVPB BID [facility] Last Admin: 06/13/18 09:37 Dose: 500 mg Loratadine (Claritin -) 10 mg PO DAILY [facility] Last Admin: 06/13/18 09:52 Dose: Not Given Lorazepam (Ativan Injection -) 2 mg IVPUSH TID [facility] Last Admin: 06/13/18 13:23 Dose: 2 mg Methylprednisolone Sodium Succinate (Solu-Medrol -) 40 mg IVPUSH DAILY [facility] Stop: 06/18/18 10:01 Pantoprazole Sodium (Protonix -) 20 mg PO DAILY [facility] Last Admin: 06/13/18 09:52 Dose: Not Given Psyllium Hydrophilic Mucilloid (Metamucil (Sugar-Free) -) 5.85 gm PO DAILY [facility] Last Admin: 06/13/18 09:52 Dose: Not Given Ranitidine HCl (Zantac -) 150 mg PO BID [facility] Last Admin: 06/13/18 09:53 Dose: Not Given Senna (Senna -) 2 tab PO DAILY [facility] Last Admin: 06/13/18 09:53 Dose: Not Given Laboratory Results - last 24 hr 06/12/18 06/13/18 06/13/18 20:30 06:10 06:10 WBC 4.1 RBC 3.58 L Hgb 10.7 Hct 32.8 MCV 91.6 MCH 30.0 MCHC 32.7 RDW 14.3 Plt Count MPV 7.8 Absolute Neuts (auto) 3.4 Neutrophils % 82.2 Lymphocytes % 14.1 Monocytes % 3.0 L Eosinophils % 0.1 D Basophils % 0.6 Nucleated RBC % 0 Platelet Comment Platelet clumped see Sodium Cancelled Potassium Cancelled Chloride Cancelled Carbon Dioxide Cancelled Anion Gap Cancelled BUN Cancelled Creatinine Cancelled Creat Clearance w eGFR Cancelled Random Glucose Cancelled Calcium Cancelled Phosphorus Cancelled Magnesium Cancelled Total Bilirubin Cancelled AST Cancelled ALT Cancelled Alkaline Phosphatase Cancelled Total Protein Cancelled Albumin Cancelled Vancomycin Pre-Dose 5.9 L 06/13/18 08:49 WBC RBC Hgb Hct MCV MCH MCHC RDW Plt Count MPV Absolute Neuts (auto) Neutrophils % Lymphocytes % Monocytes % Eosinophils % Basophils % Nucleated RBC % Platelet Comment Sodium 138 Potassium 3.7 Chloride 105 Carbon Dioxide 27 Anion Gap 6 L BUN 6 L Creatinine 0.4 L Creat Clearance w eGFR > 60 Random Glucose 152 H Calcium 9.0 Phosphorus Magnesium Total Bilirubin 0.3 AST 72 H ALT 49 Alkaline Phosphatase 82 Total Protein 5.8 L Albumin 2.4 L Vancomycin Pre-Dose Microbiology 06/12/18 17:00 Blood - Peripheral Venous Blood Culture - Preliminary NO GROWTH OBTAINED AFTER 24 HOURS, INCUBATION TO CONTINUE FOR 4 DAYS. 06/13/18 04:10 Urine For Antigen Detection Legionella Antigen - Final 06/13/18 04:10 Urine For Antigen Detection Streptococcus pneumoniae Antigen (M - Final 06/09/18 18:00 Blood - Peripheral Venous Blood Culture - Preliminary NO GROWTH OBTAINED AFTER 72 HOURS, INCUBATION TO CONTINUE FOR 2 DAYS. 06/09/18 17:30 Blood - Peripheral Venous Blood Culture - Preliminary NO GROWTH OBTAINED AFTER 72 HOURS, INCUBATION TO CONTINUE FOR 2 DAYS. 06/09/18 22:59 Urine - Urine - Catheterized Urine Culture - Final NO GROWTH OBTAINED 06/10/18 14:30 Nasopharyngeal Swab Influenza Types A,B Antigen - Final 06/10/18 14:30 Nasopharyngeal Swab - Final ASSESSMENT AND PLAN: 52 yom with PMHx of mental retardation, cerebral palsy with spastic quadriplegia , scoliosis, epilepsy(last seizure activity February of 2017, currently receiving diazepam 5 mg 3 tabs po BID and Keppra 500 mg BID), b/l foot contractures, b/l hip deformaties s/p R hip surgery, constipation, myopia, astigmatism, and exotropia, admitted with RUL PNA, likely aspiration with sepsis -RUL PNA with sepsis, likely aspiration -Acute hypoxic respiratory distress -Lactic acidosis, resolved -High aspiration risk -Cerebral palsy -Seizure disorder -Mental retardation -Scoliosis Plan: Fevers improved, clinically improved. Zosyn day 4. ID input noted. D/c azithromycin/vancomycin. Urine PNA studies neg. Taper solumedrol to 40 mg once daily. Standing and prn nebs. Pulmonary input appreciated. CT chest noted. Flu swab neg. Blood cx neg so far. Sputum cx as available. Speech/swallow input noted. NPO. Continue IVF for now. KEppra to IV, Feet twitching on 06/12, increased ativan 2 mg TID, (equivalent dosing for home valium), monitor for respiratory depression. Seizure precautions. DVTPPX lovenox DIspo pending clinical improvement. Plan discussed with aide at bedside and nursing in detail and all questions answered.
[2018-06-13] MEDS ORDERED: DEXTROSE 5%-WATER - 50 ML IVPB ONE (16:09)
[2018-06-14] MEDS ORDERED: PIPERACILLIN/TAZOBACTAM 3.375 GM VIAL IVPB ONE ×3 (01:01→18:10)
[2018-06-14] MEDS ORDERED: DEXTROSE 5%-WATER - 50 ML IVPB ONE ×3 (01:02→18:10)
[2018-06-14] MEDS: PIPERACILLIN/TAZOB 3.375 GM 3.375 GM in DEXTROSE 5%-WATER - 50 ML IVPB SCH ×4 (01:31→18:14)
--- NOTE | 2018-06-14 04:11 | HOSP ---
Physical Examination Vital Signs: Vital Signs Temperature 98.7 F 06/13/18 18:00 Pulse Rate 94 H 06/13/18 18:00 Respiratory Rate 20 06/13/18 18:00 Blood Pressure 119/70 06/13/18 18:00 O2 Sat by Pulse Oximetry (%) 97 06/13/18 09:00 Labs: CBC, BMP 06/13/18 06:10 06/13/18 08:49 Hospitalist Encounter Assessment: Was called to see pt because of swelling and change in respirations. Per nurse, pt has slowly been developing peripheral edema and O2 sat has slowly been dropping throughout the evening. Sats have been in the low-mid 90's this evening. Pt's hands have become more edematous. Nurse notes that IV lock has been functioning well all day, but prior to paging hospitalist, IV catheter appeared to be dislodged and was not flushing and so was removed. On exam, both hands edematous. No erythema. Palpable pulses. Cardiac exam rrr, normal s1s2. Lung exam limited due to contracted limbs and severe scoliosis. Air entry heard bilaterally. No crackles appreciated. Will elevate limbs and hold fluids at this time. Visit type - Emergency Visit Emergency Visit: Yes ED Registration Date: 06/09/18 Care time: The patient presented to the Emergency Department on the above date and was hospitalized for further evaluation of their emergent condition. - New Patient This patient is new to me today: No - Critical Care Critical Care patient: No
[2018-06-14] MEDS: LORazepam 2 MG/ML SDV VIAL IVPUSH SCH ×3 (06:38→22:47)
[2018-06-14] MEDS: BACLOFEN 10 MG TABLET (FP) PO SCH ×3 (06:39→22:52)
[2018-06-14] MEDS: HEPARIN NA (PORCINE) 5,000 UNITS/ML 1ML VIAL SQ SCH ×3 (06:53→22:47)
[2018-06-14 07:20] LABS: HEMATOCRIT 30.1 % (32.4-45.2); HEMOGLOBIN 9.7 GM/dL (10.7-15.3); MCH 29.9 pg (25.7-33.7); MCHC 32.4 g/dl (32.0-36.0); MEAN CELL VOLUME 92.3 fl (80-96); MEAN PLT VOLUME 8.2 fl (7.5-11.1); PLATELET COUNT 258 K/MM3 (134-434); RBC 3.26 M/mm3 (3.60-5.2); RDW 14.5 % (11.6-15.6); WHITE BLOOD COUNT 6.5 K/mm3 (4.0-10.0)
[2018-06-14] MEDS: ALBUTEROL SO4 0.083% IH SOL 2.5 MG/3 ML VIAL.NEB. NEB SCH ×4 (07:40→20:25)
[2018-06-14 08:06] LABS: ALBUMIN 2.2 g/dl (3.4-5.0); ALK PHOS 74 U/L (45-117); ANION GAP 5 MMOL/L (8-16); BILIRUBIN,TOTAL 0.3 mg/dL (0.2-1); BLOOD UREA NITROGEN 6 mg/dL (7-18); CALCIUM 8.3 mg/dL (8.5-10.1); CHLORIDE 106 mmol/L (98-107); CO2 33 mmol/L (21-32); CREATININE 0.4 mg/dL (0.55-1.3); GLUCOSE,RANDOM 88 mg/dL (74-106); POTASSIUM 3.5 mmol/L (3.5-5.1); SGOT/AST 62 U/L (15-37); SGPT/ALT 44 U/L (13-61); SODIUM 143 mmol/L (136-145); TOT PROT 5.2 g/dl (6.4-8.2)
--- NOTE | 2018-06-14 09:36 | PN ---
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 - Current Medication List Current Medications: Active Medications Albuterol Sulfate (Ventolin 0.083% Nebulizer Soln -) 1 amp NEB RQID [facility] Last Admin: 06/14/18 07:40 Dose: 1 amp Albuterol Sulfate (Ventolin 0.042trength) -) 1 amp NEB Q3H PRN PRN Reason: SHORT OF BREATH/WHEEZING Baclofen (Lioresal -) 10 mg PO TID [facility] Last Admin: 06/14/18 06:39 Dose: Not Given Bisacodyl (Dulcolax Suppository -) 10 mg RC DAILY PRN PRN Reason: CONSTIPATION Calcium Carbonate/Cholecalciferol (Os-Hitesh 500+D -) 1 tab PO BID [facility] Last Admin: 06/13/18 22:09 Dose: Not Given Chlorhexidine Gluconate (Peridex -) 30 ml MM BID [facility] Last Admin: 06/13/18 22:09 Dose: Not Given Cholecalciferol (Vitamin D3 -) 400 unit PO DAILY [facility] Last Admin: 06/13/18 09:53 Dose: Not Given Heparin Sodium (Porcine) (Heparin -) 5,000 unit SQ TID [facility] Last Admin: 06/14/18 06:53 Dose: 5,000 unit Piperacillin Sod/Tazobactam (Sod 3.375 gm/ Dextrose) 50 mls @ 100 mls/hr IVPB Q8H-IV [facility]; Protocol Last Admin: 06/14/18 01:31 Dose: 100 mls/hr Levetiracetam (Keppra Injection -) 500 mg IVPB BID [facility] Last Admin: 06/13/18 21:44 Dose: 500 mg Loratadine (Claritin -) 10 mg PO DAILY [facility] Last Admin: 06/13/18 09:52 Dose: Not Given Lorazepam (Ativan Injection -) 2 mg IVPUSH TID [facility] Last Admin: 06/14/18 06:38 Dose: Not Given Methylprednisolone Sodium Succinate (Solu-Medrol -) 40 mg IVPUSH DAILY [facility] Stop: 06/18/18 10:01 Pantoprazole Sodium (Protonix -) 20 mg PO DAILY [facility] Last Admin: 06/13/18 09:52 Dose: Not Given Psyllium Hydrophilic Mucilloid (Metamucil (Sugar-Free) -) 5.85 gm PO DAILY [facility] Last Admin: 06/13/18 09:52 Dose: Not Given Ranitidine HCl (Zantac -) 150 mg PO BID [facility] Last Admin: 06/13/18 22:10 Dose: Not Given Senna (Senna -) 2 tab PO DAILY [facility] Last Admin: 06/13/18 09:53 Dose: Not Given - Objective Vital Signs: Vital Signs Temperature 100.0 F H 06/14/18 06:28 Pulse Rate 93 H 06/14/18 06:28 Respiratory Rate 20 06/14/18 06:28 Blood Pressure 107/55 L 06/14/18 06:28 O2 Sat by Pulse Oximetry (%) 92 L 06/13/18 21:00 Constitutional: Yes: No Distress, Calm Neck: Yes: Supple Cardiovascular: Yes: Regular Rate and Rhythm Respiratory: Yes: Regular, On Nasal O2, Poor Air Entry, Rhonchi Gastrointestinal: Yes: Normal Bowel Sounds, Soft Musculoskeletal: Yes: WNL Extremities: Yes: WNL Neurological: Yes: Alert, Other Psychiatric: Yes: Other Labs: CBC, BMP 06/14/18 06:00 06/14/18 06:00 INR, PTT INR 1.14 (0.83-1.09) H 06/10/18 06:00 Assessment/Plan Problem List - Problems (1) Pneumonia Code(s): J18.9 - PNEUMONIA, UNSPECIFIED ORGANISM (2) Aspiration pneumonia Code(s): J69.0 - PNEUMONITIS DUE TO INHALATION OF FOOD AND VOMIT (3) Fever Code(s): R50.9 - FEVER, UNSPECIFIED (4) Altered mental status Code(s): R41.82 - ALTERED MENTAL STATUS, UNSPECIFIED Qualifiers: Altered mental status type: unspecified Qualified Code(s): R41.82 - Altered mental status, unspecified (5) Cerebral palsy Code(s): G80.9 - CEREBRAL PALSY, UNSPECIFIED (6) Constipation Code(s): K59.00 - CONSTIPATION, UNSPECIFIED (7) Functional quadriplegia Code(s): R53.2 - FUNCTIONAL QUADRIPLEGIA (8) Mental retardation Code(s): F79 - UNSPECIFIED INTELLECTUAL DISABILITIES (9) Seizures Code(s): R56.9 - UNSPECIFIED CONVULSIONS plan continue zosyn asp precautions rest as per the team patient improving
[2018-06-14] MEDS: SENNOSIDES 8.6MG TABLET (FP) PO SCH (09:48)
[2018-06-14] MEDS: LORATADINE 10 MG TABLET PO SCH (09:48)
[2018-06-14] MEDS: PANTOPRAZOLE 20 MG TABLET (FP) PO SCH (09:48)
[2018-06-14] MEDS: CHOLECALCIFEROL (VITAMIN D3) 400 UNIT TABLET (FP) PO SCH (09:48)
[2018-06-14] MEDS: CALCIUM 500MG/VIT-D 200 UNITS COMBO TABLET (FP) PO SCH ×2 (09:48→22:52)
[2018-06-14] MEDS: RANITIDINE HCL 150 MG TABLET (FP) PO SCH ×2 (09:48→22:52)
[2018-06-14] MEDS: CHLORHEXIDINE GLUCONATE 0.12% 15ML CUP MM SCH ×2 (09:49→22:52)
[2018-06-14] MEDS: levETIRAcetam 500 MG/5 ML INJECTION VIAL IVPB SCH ×3 (09:49→22:47)
[2018-06-14] MEDS: PSYLLIUM 5.85 GM PACKET PO SCH (09:49)
[2018-06-14] MEDS: methylPREDNISolone NA SUCC 40 MG/1 ML VIAL IVPUSH SCH ×2 (09:50→11:21)
--- NOTE | 2018-06-14 11:22 | PN ---
Progress Note (short form) - Note Progress Note: Appears stable. Breathing is non-labored on NC O2. Sounds less congested. Intake & Output 06/11/18 06/12/18 06/13/18 06/14/18 23:59 23:59 23:59 23:59 Intake Total 3600 2850 2750 850 Output Total 1 2 2 Balance 3599 2848 2748 850 Last Vital Signs Temp Pulse Resp BP Pulse Ox 100.0 F H 93 H 20 107/55 L 92 L 06/14/18 06:28 06/14/18 06:28 06/14/18 06:28 06/14/18 06:28 06/13/18 21:00 Active Medications Albuterol Sulfate (Ventolin 0.083% Nebulizer Soln -) 1 amp NEB RQID [facility] Last Admin: 06/14/18 07:40 Dose: 1 amp Albuterol Sulfate (Ventolin 0.042trength) -) 1 amp NEB Q3H PRN PRN Reason: SHORT OF BREATH/WHEEZING Baclofen (Lioresal -) 10 mg PO TID [facility] Last Admin: 06/14/18 06:39 Dose: Not Given Bisacodyl (Dulcolax Suppository -) 10 mg RC DAILY PRN PRN Reason: CONSTIPATION Calcium Carbonate/Cholecalciferol (Os-Hitesh 500+D -) 1 tab PO BID [facility] Last Admin: 06/14/18 09:48 Dose: 1 tab Chlorhexidine Gluconate (Peridex -) 30 ml MM BID [facility] Last Admin: 06/14/18 09:49 Dose: 30 ml Cholecalciferol (Vitamin D3 -) 400 unit PO DAILY [facility] Last Admin: 06/14/18 09:48 Dose: 400 unit Heparin Sodium (Porcine) (Heparin -) 5,000 unit SQ TID [facility] Last Admin: 06/14/18 06:53 Dose: 5,000 unit Piperacillin Sod/Tazobactam (Sod 3.375 gm/ Dextrose) 50 mls @ 100 mls/hr IVPB Q8H-IV [facility]; Protocol Last Admin: 06/14/18 09:50 Dose: Not Given Levetiracetam (Keppra Injection -) 500 mg IVPB BID [facility] Last Admin: 06/14/18 09:49 Dose: Not Given Loratadine (Claritin -) 10 mg PO DAILY [facility] Last Admin: 06/14/18 09:48 Dose: 10 mg Lorazepam (Ativan Injection -) 2 mg IVPUSH TID [facility] Last Admin: 06/14/18 06:38 Dose: Not Given Methylprednisolone Sodium Succinate (Solu-Medrol -) 40 mg IVPUSH DAILY [facility] Stop: 06/18/18 10:01 Last Admin: 06/14/18 09:50 Dose: Not Given Pantoprazole Sodium (Protonix -) 20 mg PO DAILY [facility] Last Admin: 06/14/18 09:48 Dose: 20 mg Psyllium Hydrophilic Mucilloid (Metamucil (Sugar-Free) -) 5.85 gm PO DAILY [facility] Last Admin: 06/14/18 09:49 Dose: Not Given Ranitidine HCl (Zantac -) 150 mg PO BID [facility] Last Admin: 06/14/18 09:48 Dose: 150 mg Senna (Senna -) 2 tab PO DAILY [facility] Last Admin: 06/14/18 09:48 Dose: 2 tab Constitutional: Yes: No Distress Eyes: Yes: Conjunctiva Clear, EOM Intact HENT: Yes: Atraumatic Neck: Yes: Supple, Trachea Midline Cardiovascular: Yes: Regular Rate and Rhythm Respiratory: Yes: Cough, Diminished, On Nasal O2, Rhonchi. No: Accessory Muscle Use, Rales, SOB, SOB on Exertion, Stridor, Tachypnea, Wheezes ...Inspection: Yes: WNL ...Clubbing: No Gastrointestinal: Yes: Normal Bowel Sounds, Soft Renal/: Yes: WNL Musculoskeletal: Yes: Joint Stiffness Extremities: Yes: Shortened Edema: No Peripheral Pulses WNL: Yes Integumentary: Yes: WNL Neurological: Yes: Alert Psychiatric: Yes: Alert Labs: Laboratory Results - last 24 hr 06/14/18 06/14/18 06:00 06:00 WBC 6.5 RBC 3.26 L Hgb 9.7 L Hct 30.1 L MCV 92.3 MCH 29.9 MCHC 32.4 RDW 14.5 Plt Count 258 MPV 8.2 Sodium 143 Potassium 3.5 Chloride 106 Carbon Dioxide 33 H Anion Gap 5 L BUN 6 L Creatinine 0.4 L Creat Clearance w eGFR > 60 Random Glucose 88 Calcium 8.3 L Total Bilirubin 0.3 AST 62 H ALT 44 Alkaline Phosphatase 74 Total Protein 5.2 L Albumin 2.2 L Problem List - Problems (1) Pneumonia Code(s): J18.9 - PNEUMONIA, UNSPECIFIED ORGANISM (2) Aspiration pneumonia Code(s): J69.0 - PNEUMONITIS DUE TO INHALATION OF FOOD AND VOMIT (3) Fever Code(s): R50.9 - FEVER, UNSPECIFIED (4) Altered mental status Code(s): R41.82 - ALTERED MENTAL STATUS, UNSPECIFIED Qualifiers: Altered mental status type: unspecified Qualified Code(s): R41.82 - Altered mental status, unspecified (5) Cerebral palsy Code(s): G80.9 - CEREBRAL PALSY, UNSPECIFIED (6) Constipation Code(s): K59.00 - CONSTIPATION, UNSPECIFIED (7) Functional quadriplegia Code(s): R53.2 - FUNCTIONAL QUADRIPLEGIA (8) Mental retardation Code(s): F79 - UNSPECIFIED INTELLECTUAL DISABILITIES (9) Seizures Code(s): R56.9 - UNSPECIFIED CONVULSIONS Assessment/Plan ABX per ID Aspiration precautions Daily Medrol x 5 days in total O2 as needed Consider a trial of PO intake as she appears clinically improved VTE prophylaxis BD TX Dr Alex Problem List - Problems (1) Pneumonia Code(s): J18.9 - PNEUMONIA, UNSPECIFIED ORGANISM (2) Aspiration pneumonia Code(s): J69.0 - PNEUMONITIS DUE TO INHALATION OF FOOD AND VOMIT (3) Fever Code(s): R50.9 - FEVER, UNSPECIFIED (4) Altered mental status Code(s): R41.82 - ALTERED MENTAL STATUS, UNSPECIFIED Qualifiers: Altered mental status type: unspecified Qualified Code(s): R41.82 - Altered mental status, unspecified (5) Cerebral palsy Code(s): G80.9 - CEREBRAL PALSY, UNSPECIFIED (6) Constipation Code(s): K59.00 - CONSTIPATION, UNSPECIFIED (7) Functional quadriplegia Code(s): R53.2 - FUNCTIONAL QUADRIPLEGIA (8) Mental retardation Code(s): F79 - UNSPECIFIED INTELLECTUAL DISABILITIES (9) Seizures Code(s): R56.9 - UNSPECIFIED CONVULSIONS
--- NOTE | 2018-06-14 13:00 | PN ---
Physical Exam: SUBJECTIVE: Patient seen and examined this AM. She mostly back at baseline as per her aide who is in the room with her. She is resting comfortably in bed. Overnight events noted. OBJECTIVE: Vital Signs Period Temp Pulse Resp BP Sys/Ascencio Pulse Ox Last 24 Hr 97.3 F-100.0 F 93-95 20-20 107-119/55-70 92-94 GENERAL: Awake, in no acute distress HEAD: Microcephalic, atraumatic. EYES: PERRL, no scleral icterus EARS, NOSE, THROAT: oropharynx clear with less mucus secretions. Moist mucous membranes. LUNGS: Course breath sounds improving, with some wheezing, poor inspiratory effort, audible gurgling improved HEART: Regular rate and rhythm, normal S1 and S2 without murmur ABDOMEN: Soft, nontender to palpation, normoactive bowel sounds MUSCULOSKELETAL: Severe levoscoliosis EXTREMITIES: Contracted, some dependent edema in b/l UE SKIN: Warm, dry, no rashes or lesions noted Laboratory Results - last 24 hr 06/14/18 06/14/18 06:00 06:00 WBC 6.5 RBC 3.26 L Hgb 9.7 L Hct 30.1 L MCV 92.3 MCH 29.9 MCHC 32.4 RDW 14.5 Plt Count 258 MPV 8.2 Sodium 143 Potassium 3.5 Chloride 106 Carbon Dioxide 33 H Anion Gap 5 L BUN 6 L Creatinine 0.4 L Creat Clearance w eGFR > 60 Random Glucose 88 Calcium 8.3 L Total Bilirubin 0.3 AST 62 H ALT 44 Alkaline Phosphatase 74 Total Protein 5.2 L Albumin 2.2 L Active Medications Generic Name Dose Route Start Last Admin Trade Name Freq PRN Reason Stop Dose Admin Albuterol Sulfate 1 amp 06/10/18 16:00 06/14/18 12:12 Ventolin 0.083% Nebulizer Soln - NEB 1 amp RQID [facility] Administration Albuterol Sulfate 1 amp 06/12/18 14:30 Ventolin 0.042trength) - [facility] Q3H PRN SHORT OF BREATH/WHEEZING Baclofen 10 mg 06/10/18 08:00 06/14/18 06:39 Lioresal - PO Not Given TID [facility] Bisacodyl 10 mg 06/10/18 14:38 Dulcolax Suppository - RC DAILY PRN CONSTIPATION Calcium Carbonate/Cholecalciferol 1 tab 06/10/18 22:00 06/14/18 09:48 Os-Hitesh 500+D - PO 1 tab BID [facility] Administration Chlorhexidine Gluconate 30 ml 06/10/18 22:00 06/14/18 09:49 Peridex - MM 30 ml BID [facility] Administration Cholecalciferol 400 unit 06/11/18 10:00 06/14/18 09:48 Vitamin D3 - PO 400 unit DAILY [facility] Administration Heparin Sodium (Porcine) 5,000 unit 06/10/18 22:00 06/14/18 06:53 Heparin - SQ 5,000 unit TID [facility] Administration Piperacillin Sod/Tazobactam 50 mls @ 100 mls/hr 06/10/18 18:00 06/14/18 12:32 Sod 3.375 gm/ Dextrose IVPB 100 mls/hr Q8H-IV [facility] Administration Protocol Levetiracetam 500 mg 06/10/18 22:00 06/14/18 11:22 Keppra Injection - IVPB 500 mg BID [facility] Administration Loratadine 10 mg 06/10/18 14:45 06/14/18 09:48 Claritin - PO 10 mg DAILY [facility] Administration Lorazepam 2 mg 06/12/18 15:30 06/14/18 06:38 Ativan Injection - IVPUSH Not Given TID [facility] Methylprednisolone Sodium Succinate 40 mg 06/14/18 10:00 06/14/18 11:21 Solu-Medrol - IVPUSH 06/18/18 10:01 40 mg DAILY [facility] Administration Pantoprazole Sodium 20 mg 06/10/18 14:45 06/14/18 09:48 Protonix - PO 20 mg DAILY [facility] Administration Psyllium Hydrophilic Mucilloid 5.85 gm 06/10/18 14:45 06/14/18 09:49 Metamucil (Sugar-Free) - PO Not Given DAILY [facility] Ranitidine HCl 150 mg 06/10/18 22:00 06/14/18 09:48 Zantac - PO 150 mg BID [facility] Administration Senna 2 tab 06/11/18 10:00 06/14/18 09:48 Senna - PO 2 tab DAILY [facility] Administration ASSESSMENT/PLAN: 52 yo Female with PMH Cerebral Palsy with spastic quadriplegia, Mental Retardation, Epilepsy, Scoliosis presented from [facility] [place] for vomiting followed by high fevers and cough. Sepsis secondary to Aspiration pneumonia vs pneumonitis -Febrile 103.5 on admission, Tachycardic, tachypnic -Fevers improving -CXR: No gross evidence of infiltration -Chest CT: RUL congestion suspicious for pneumonia vs pneumonitis -ID consult appreciated Zosyn 3.375 gm Q8 IV -Ventolin NEBs QID -Lactic acid mildly elevated on admission 3.6, resolved -Clinically improving -Speech and Swallow eval to restart PO, pt is clinically back to baseline as per aide Epilepsy -Keppra 500 mg PO BID switched to IV until tolerates PO -Ativan 2 gm TID [facility] Spasticity -Pt on Baclofen 10 mg TID -Unable to give for now due to strict NPO -Will monitor carefully for increased spasticity and start baclofen as soon as pt tolerates PO -Discussed with pharmacy, no possible replacement without NG tube which pt will likely not tolerate -Ativan 2 gm TID DVT Prophylaxis -Heparin 5000 units SQ TID [facility] -Fluids: none -Electrolytes: No electrolyte abnormalities, BMP in AM -Nutrition: Strict NPO until lethargy improves Disposition Med/Surg Visit type - Emergency Visit Emergency Visit: Yes ED Registration Date: 06/09/18 Care time: The patient presented to the Emergency Department on the above date and was hospitalized for further evaluation of their emergent condition. - New Patient This patient is new to me today: No - Critical Care Critical Care patient: No
--- NOTE | 2018-06-14 14:51 | PN ---
Teaching Attending Note Name of Resident: Pedro Morejon ATTENDING PHYSICIAN STATEMENT I reviewed the resident's note and discussed the case with the resident. I agree with the resident's findings and plan as documented. SUBJECTIVE:multiple attempts to see patient but was being changed. 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 Sepsis due to RUL PNA- likely aspiration. clinically improved. afebrile. on zosyn day 5. lost IV access this AM and attempting to secure another site. if unable to obtain will need to d/w ID if able to transition to po. Repeat swallow eval to see if aspiration risk. mental status was noted to be improved today per nursing staff. if not will need to consider alternate feeding options. 2. Acute hypoxic respiratory distress- due to PNA. now resolved. short course of steroids. medrol 40mg IV daily. can switch to po if unable to secure access. saturating well on room air 3. Lactic acidosis, resolved 4. Cerebral palsy 5. Seizure disorder- no seizure like motion noted. cont anti-eleptics. 6. Mental retardation 7. Scoliosis 8. DVT ppx- lovenox
[2018-06-15] MEDS ORDERED: DEXTROSE 5%-WATER - 50 ML IVPB ONE ×3 (01:33→17:35)
[2018-06-15] MEDS ORDERED: PIPERACILLIN/TAZOBACTAM 3.375 GM VIAL IVPB ONE ×3 (01:33→17:35)
[2018-06-15] MEDS: PIPERACILLIN/TAZOB 3.375 GM 3.375 GM in DEXTROSE 5%-WATER - 50 ML IVPB SCH ×3 (02:25→17:48)
[2018-06-15] MEDS: HEPARIN NA (PORCINE) 5,000 UNITS/ML 1ML VIAL SQ SCH ×3 (06:39→21:20)
[2018-06-15] MEDS: BACLOFEN 10 MG TABLET (FP) PO SCH ×3 (06:39→21:21)
[2018-06-15] MEDS: LORazepam 2 MG/ML SDV VIAL IVPUSH SCH ×3 (06:39→21:27)
[2018-06-15] MEDS: ALBUTEROL SO4 0.083% IH SOL 2.5 MG/3 ML VIAL.NEB. NEB SCH ×2 (08:09→12:49)
--- NOTE | 2018-06-15 08:32 | PN ---
Physical Exam: SUBJECTIVE: Patient seen and examined this AM. She is sleeping comfortably in bed. As per the aide she still is having some periods of wheezing with some mild tachypnea, though it resolves completely with a breathing treatment. OBJECTIVE: Vital Signs Period Temp Pulse Resp BP Sys/Ascencio Pulse Ox Last 24 Hr 97.3 F-99.8 F 82-95 18-20 106-137/60-78 94-100 GENERAL: Asleep, in no acute distress HEAD: Microcephalic, atraumatic. EYES: PERRL, no scleral icterus EARS, NOSE, THROAT: oropharynx clear with less mucus secretions. Moist mucous membranes. LUNGS: Course breath sounds improving, with some wheezing, poor inspiratory effort HEART: Regular rate and rhythm, normal S1 and S2 without murmur ABDOMEN: Soft, nontender to palpation, normoactive bowel sounds MUSCULOSKELETAL: Severe levoscoliosis EXTREMITIES: Contracted, some dependent edema in b/l UE, IV in place on left forearm without erythema or infiltration SKIN: Warm, dry, no rashes or lesions noted Active Medications Generic Name Dose Route Start Last Admin Trade Name Freq PRN Reason Stop Dose Admin Albuterol Sulfate 1 amp 06/10/18 16:00 06/15/18 08:09 Ventolin 0.083% Nebulizer Soln - NEB 1 amp RQID [facility] Administration Albuterol Sulfate 1 amp 06/12/18 14:30 Ventolin 0.042trength) - [facility]B Q3H PRN SHORT OF BREATH/WHEEZING Baclofen 10 mg 06/10/18 08:00 06/15/18 06:39 Lioresal - PO Not Given TID [facility] Bisacodyl 10 mg 06/10/18 14:38 Dulcolax Suppository - RC DAILY PRN CONSTIPATION Calcium Carbonate/Cholecalciferol 1 tab 06/10/18 22:00 06/14/18 22:52 Os-Hitesh 500+D - PO Not Given BID [facility] Chlorhexidine Gluconate 30 ml 06/10/18 22:00 06/14/18 22:52 Peridex - MM Not Given BID [facility] Cholecalciferol 400 unit 06/11/18 10:00 06/14/18 09:48 Vitamin D3 - PO 400 unit DAILY [facility] Administration Heparin Sodium (Porcine) 5,000 unit 06/10/18 22:00 10/03/18 06:39 Heparin - SQ 5,000 unit TID [facility] Administration Piperacillin Sod/Tazobactam 50 mls @ 100 mls/hr 06/10/18 18:00 06/15/18 02:25 Sod 3.375 gm/ Dextrose IVPB 100 mls/hr Q8H-IV [facility] Administration Protocol Levetiracetam 500 mg 06/10/18 22:00 06/14/18 22:47 Keppra Injection - IVPB 500 mg BID [facility] Administration Loratadine 10 mg 06/10/18 14:45 06/14/18 09:48 Claritin - PO 10 mg DAILY [facility] Administration Lorazepam 2 mg 06/12/18 15:30 06/15/18 06:39 Ativan Injection - IVPUSH 2 mg TID [facility] Administration Methylprednisolone Sodium Succinate 40 mg 06/14/18 10:00 06/14/18 11:21 Solu-Medrol - IVPUSH 06/18/18 10:01 40 mg DAILY [facility] Administration Pantoprazole Sodium 20 mg 06/10/18 14:45 06/14/18 09:48 Protonix - PO 20 mg DAILY [facility] Administration Psyllium Hydrophilic Mucilloid 5.85 gm 06/10/18 14:45 06/14/18 09:49 Metamucil (Sugar-Free) - PO Not Given DAILY [facility] Ranitidine HCl 150 mg 06/10/18 22:00 06/14/18 22:52 Zantac - PO Not Given BID [facility] Senna 2 tab 06/11/18 10:00 06/14/18 09:48 Senna - PO 2 tab DAILY [facility] Administration ASSESSMENT/PLAN: 52 yo Female with PMH Cerebral Palsy with spastic quadriplegia, Mental Retardation, Epilepsy, Scoliosis presented from [facility] for vomiting followed by high fevers and cough. Sepsis secondary to Aspiration pneumonia vs pneumonitis -Febrile 103.5 on admission, Tachycardic, tachypnic -Fevers improving -CXR: No gross evidence of infiltration -Chest CT: RUL congestion suspicious for pneumonia vs pneumonitis -ID consult appreciated Zosyn 3.375 gm Q8 IV -Ventolin NEBs QID -Pulmonology consult appreciated -Methylprednisolone 40 mg IV Day 2 of 5 while inpatient -Lactic acid mildly elevated on admission 3.6, resolved -Clinically improving -Speech and Swallow eval to restart PO, pt is clinically back to baseline as per aide Epilepsy -Keppra 500 mg PO BID switched to IV until tolerates PO -Ativan 2 gm TID [facility] Spasticity -Pt on Baclofen 10 mg TID -Unable to give for now due to strict NPO -Will monitor carefully for increased spasticity and start baclofen as soon as pt tolerates PO -Discussed with pharmacy, no possible replacement without NG tube which pt will likely not tolerate -Ativan 2 gm TID DVT Prophylaxis -Heparin 5000 units SQ TID FEN -Fluids: none -Electrolytes: No electrolyte abnormalities, BMP in AM -Nutrition: Trial dysphagia puree with nectar thickened liquids Disposition Med/Surg Visit type - Emergency Visit Emergency Visit: Yes ED Registration Date: 06/09/18 Care time: The patient presented to the Emergency Department on the above date and was hospitalized for further evaluation of their emergent condition. - New Patient This patient is new to me today: No - Critical Care Critical Care patient: No
[2018-06-15] MEDS: levETIRAcetam 500 MG/5 ML INJECTION VIAL IVPB SCH ×2 (09:26→21:21)
[2018-06-15] MEDS: methylPREDNISolone NA SUCC 40 MG/1 ML VIAL IVPUSH SCH (09:26)
[2018-06-15] MEDS: RANITIDINE HCL 150 MG TABLET (FP) PO SCH ×2 (09:27→21:21)
[2018-06-15] MEDS: PANTOPRAZOLE 20 MG TABLET (FP) PO SCH (09:27)
[2018-06-15] MEDS: CHLORHEXIDINE GLUCONATE 0.12% 15ML CUP MM SCH ×2 (09:27→21:21)
[2018-06-15] MEDS: LORATADINE 10 MG TABLET PO SCH (09:27)
[2018-06-15] MEDS: CALCIUM 500MG/VIT-D 200 UNITS COMBO TABLET (FP) PO SCH ×2 (09:27→21:21)
[2018-06-15] MEDS: SENNOSIDES 8.6MG TABLET (FP) PO SCH (09:27)
[2018-06-15] MEDS: PSYLLIUM 5.85 GM PACKET PO SCH (09:27)
[2018-06-15] MEDS: CHOLECALCIFEROL (VITAMIN D3) 400 UNIT TABLET (FP) PO SCH (09:27)
--- NOTE | 2018-06-15 11:28 | PN ---
Teaching Attending Note Name of Resident: Pedro Morejon ATTENDING PHYSICIAN STATEMENT I saw and evaluated the patient. I reviewed the resident's note and discussed the case with the resident. I agree with the resident's findings and plan as documented. SUBJECTIVE:resting comfortable OBJECTIVE: Last Vital Signs Temp Pulse Resp BP Pulse Ox 99.8 F H 106 H 20 125/67 100 06/15/18 09:13 06/15/18 09:13 06/15/18 09:13 06/15/18 09:13 06/14/18 21:00 General NAD CV S1 S2 RRR Lungs coarse breath sounds anteriorly. 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 Sepsis due to RUL PNA- likely aspiration. clinically improved. afebrile. on zosyn day 6. more alert today. will assess to see if can advance diet. was on puree at facility. will d/w ID about abx duration 2. Acute hypoxic respiratory distress- due to PNA. improved. 93% on RA. on medrol 40mg day 2/. pulm on board 3. Lactic acidosis, resolved 4. Cerebral palsy 5. Seizure disorder- no seizure like motion noted. cont anti-eleptics. 6. Mental retardation 7. Scoliosis 8. DVT ppx- lovenox
--- NOTE | 2018-06-15 12:39 | PN ---
Progress Note, Physician History of Present Illness: patient according to healthcare network pricing consultant does not looks good patient without oxygen desats continues to need oxygen otherwise looks comfortable - Current Medication List Current Medications: Active Medications Albuterol Sulfate (Ventolin 0.083% Nebulizer Soln -) 1 amp NEB RQID [facility] Last Admin: 06/15/18 08:09 Dose: 1 amp Albuterol Sulfate (Ventolin 0.042trength) -) 1 amp NEB Q3H PRN PRN Reason: SHORT OF BREATH/WHEEZING Baclofen (Lioresal -) 10 mg PO TID [facility] Last Admin: 06/15/18 06:39 Dose: Not Given Bisacodyl (Dulcolax Suppository -) 10 mg RC DAILY PRN PRN Reason: CONSTIPATION Calcium Carbonate/Cholecalciferol (Os-Hitesh 500+D -) 1 tab PO BID [facility] Last Admin: 06/15/18 09:27 Dose: Not Given Chlorhexidine Gluconate (Peridex -) 30 ml MM BID [facility] Last Admin: 06/15/18 09:27 Dose: Not Given Cholecalciferol (Vitamin D3 -) 400 unit PO DAILY [facility] Last Admin: 06/15/18 09:27 Dose: Not Given Heparin Sodium (Porcine) (Heparin -) 5,000 unit SQ TID [facility] Last Admin: 06/15/18 06:39 Dose: 5,000 unit Piperacillin Sod/Tazobactam (Sod 3.375 gm/ Dextrose) 50 mls @ 100 mls/hr IVPB Q8H-IV [facility]; Protocol Last Admin: 06/15/18 10:26 Dose: 100 mls/hr Levetiracetam (Keppra Injection -) 500 mg IVPB BID [facility] Last Admin: 06/15/18 09:26 Dose: 500 mg Loratadine (Claritin -) 10 mg PO DAILY [facility] Last Admin: 06/15/18 09:27 Dose: Not Given Lorazepam (Ativan Injection -) 2 mg IVPUSH TID [facility] Last Admin: 06/15/18 06:39 Dose: 2 mg Methylprednisolone Sodium Succinate (Solu-Medrol -) 40 mg IVPUSH DAILY [facility] Stop: 06/18/18 10:01 Last Admin: 06/15/18 09:26 Dose: 40 mg Pantoprazole Sodium (Protonix -) 20 mg PO DAILY [facility] Last Admin: 06/15/18 09:27 Dose: Not Given Psyllium Hydrophilic Mucilloid (Metamucil (Sugar-Free) -) 5.85 gm PO DAILY [facility] Last Admin: 06/15/18 09:27 Dose: Not Given Ranitidine HCl (Zantac -) 150 mg PO BID [facility] Last Admin: 06/15/18 09:27 Dose: Not Given Senna (Senna -) 2 tab PO DAILY [facility] Last Admin: 06/15/18 09:27 Dose: Not Given - Objective Vital Signs: Vital Signs Temperature 99.8 F H 06/15/18 09:13 Pulse Rate 106 H 06/15/18 09:13 Respiratory Rate 20 06/15/18 09:13 Blood Pressure 125/67 06/15/18 09:13 O2 Sat by Pulse Oximetry (%) 100 06/14/18 21:00 Constitutional: Yes: Calm Cardiovascular: Yes: Regular Rate and Rhythm Respiratory: Yes: Regular, On Nasal O2, Other (decreased air entry) Gastrointestinal: Yes: Normal Bowel Sounds, Soft Musculoskeletal: Yes: Other Extremities: Yes: Other (contracted) Neurological: Yes: Alert, Other Labs: CBC, BMP 06/14/18 06:00 06/14/18 06:00 INR, PTT INR 1.14 (0.83-1.09) H 06/10/18 06:00 Assessment/Plan Problem List - Problems (1) Pneumonia Code(s): J18.9 - PNEUMONIA, UNSPECIFIED ORGANISM (2) Aspiration pneumonia Code(s): J69.0 - PNEUMONITIS DUE TO INHALATION OF FOOD AND VOMIT (3) Fever Code(s): R50.9 - FEVER, UNSPECIFIED (4) Altered mental status Code(s): R41.82 - ALTERED MENTAL STATUS, UNSPECIFIED Qualifiers: Altered mental status type: unspecified Qualified Code(s): R41.82 - Altered mental status, unspecified (5) Cerebral palsy Code(s): G80.9 - CEREBRAL PALSY, UNSPECIFIED (6) Constipation Code(s): K59.00 - CONSTIPATION, UNSPECIFIED (7) Functional quadriplegia Code(s): R53.2 - FUNCTIONAL QUADRIPLEGIA (8) Mental retardation Code(s): F79 - UNSPECIFIED INTELLECTUAL DISABILITIES (9) Seizures Code(s): R56.9 - UNSPECIFIED CONVULSIONS plan continue zosyn asp precautions rest as per the team neb treatments
--- NOTE | 2018-06-15 14:13 | PN ---
Progress Note, Physician History of Present Illness: PULMONARY AWAKE,CONGESTED,+ HYPOXIC EARLIER ON RA 85% - Current Medication List Current Medications: Active Medications Albuterol Sulfate (Ventolin 0.083% Nebulizer Soln -) 1 amp NEB RQID [facility] Last Admin: 06/15/18 12:49 Dose: 1 amp Albuterol Sulfate (Ventolin 0.042trength) -) 1 amp NEB Q3H PRN PRN Reason: SHORT OF BREATH/WHEEZING Baclofen (Lioresal -) 10 mg PO TID [facility] Last Admin: 06/15/18 13:43 Dose: Not Given Bisacodyl (Dulcolax Suppository -) 10 mg RC DAILY PRN PRN Reason: CONSTIPATION Calcium Carbonate/Cholecalciferol (Os-Hitesh 500+D -) 1 tab PO BID [facility] Last Admin: 06/15/18 09:27 Dose: Not Given Chlorhexidine Gluconate (Peridex -) 30 ml MM BID [facility] Last Admin: 06/15/18 09:27 Dose: Not Given Cholecalciferol (Vitamin D3 -) 400 unit PO DAILY [facility] Last Admin: 06/15/18 09:27 Dose: Not Given Heparin Sodium (Porcine) (Heparin -) 5,000 unit SQ TID [facility] Last Admin: 06/15/18 13:43 Dose: 5,000 unit Piperacillin Sod/Tazobactam (Sod 3.375 gm/ Dextrose) 50 mls @ 100 mls/hr IVPB Q8H-IV [facility]; Protocol Last Admin: 06/15/18 10:26 Dose: 100 mls/hr Levetiracetam (Keppra Injection -) 500 mg IVPB BID [facility] Last Admin: 06/15/18 09:26 Dose: 500 mg Loratadine (Claritin -) 10 mg PO DAILY [facility] Last Admin: 06/15/18 09:27 Dose: Not Given Lorazepam (Ativan Injection -) 2 mg IVPUSH TID [facility] Last Admin: 06/15/18 13:43 Dose: 2 mg Methylprednisolone Sodium Succinate (Solu-Medrol -) 40 mg IVPUSH DAILY [facility] Stop: 06/18/18 10:01 Last Admin: 06/15/18 09:26 Dose: 40 mg Pantoprazole Sodium (Protonix -) 20 mg PO DAILY [facility] Last Admin: 06/15/18 09:27 Dose: Not Given Psyllium Hydrophilic Mucilloid (Metamucil (Sugar-Free) -) 5.85 gm PO DAILY [facility] Last Admin: 06/15/18 09:27 Dose: Not Given Ranitidine HCl (Zantac -) 150 mg PO BID [facility] Last Admin: 06/15/18 09:27 Dose: Not Given Senna (Senna -) 2 tab PO DAILY [facility] Last Admin: 06/15/18 09:27 Dose: Not Given - Objective Vital Signs: Vital Signs Temperature 99.8 F H 06/15/18 09:13 Pulse Rate 106 H 06/15/18 09:13 Respiratory Rate 20 06/15/18 09:13 Blood Pressure 125/67 06/15/18 09:13 O2 Sat by Pulse Oximetry (%) 100 06/14/18 21:00 Constitutional: Yes: Well Nourished, Calm Eyes: Yes: WNL HENT: Yes: WNL Neck: Yes: WNL Cardiovascular: Yes: Regular Rate and Rhythm, S1, S2 Respiratory: Yes: Rhonchi (BILATERAL RHONCHI) Gastrointestinal: Yes: Normal Bowel Sounds, Soft Extremities: Yes: Shortened, Other (CONTRACTED) Edema: No Labs: Assessment/Plan Problem List - Problems (1) Pneumonia Code(s): J18.9 - PNEUMONIA, UNSPECIFIED ORGANISM (2) Aspiration pneumonia Code(s): J69.0 - PNEUMONITIS DUE TO INHALATION OF FOOD AND VOMIT (3) Fever Code(s): R50.9 - FEVER, UNSPECIFIED (4) Altered mental status Code(s): R41.82 - ALTERED MENTAL STATUS, UNSPECIFIED Qualifiers: Altered mental status type: unspecified Qualified Code(s): R41.82 - Altered mental status, unspecified (5) Cerebral palsy Code(s): G80.9 - CEREBRAL PALSY, UNSPECIFIED (6) Constipation Code(s): K59.00 - CONSTIPATION, UNSPECIFIED (7) Functional quadriplegia Code(s): R53.2 - FUNCTIONAL QUADRIPLEGIA (8) Mental retardation Code(s): F79 - UNSPECIFIED INTELLECTUAL DISABILITIES (9) Seizures Code(s): R56.9 - UNSPECIFIED CONVULSIONS Assessment/Plan ABX per ID Aspiration precautions Medrol O2 as needed VTE prophylaxis BD TX Dr Matt Problem List - Problems (1) Pneumonia Code(s): J18.9 - PNEUMONIA, UNSPECIFIED ORGANISM (2) Aspiration pneumonia Code(s): J69.0 - PNEUMONITIS DUE TO INHALATION OF FOOD AND VOMIT (3) Fever Code(s): R50.9 - FEVER, UNSPECIFIED (4) Altered mental status Code(s): R41.82 - ALTERED MENTAL STATUS, UNSPECIFIED Qualifiers: Altered mental status type: unspecified Qualified Code(s): R41.82 - Altered mental status, unspecified (5) Cerebral palsy Code(s): G80.9 - CEREBRAL PALSY, UNSPECIFIED (6) Constipation Code(s): K59.00 - CONSTIPATION, UNSPECIFIED (7) Functional quadriplegia Code(s): R53.2 - FUNCTIONAL QUADRIPLEGIA (8) Mental retardation Code(s): F79 - UNSPECIFIED INTELLECTUAL DISABILITIES (9) Seizures Code(s): R56.9 - UNSPECIFIED CONVULSIONS
[2018-06-15] MEDS ORDERED: ALBUTEROL SO4 0.083% IH SOL 2.5 MG/3 ML VIAL.NEB. NEB ONE (15:05)
--- NOTE | 2018-06-15 15:17 | PN ---
Progress Note, PLASTER DIE MAKER - Note Progress Note: 2 BUILD AND DEPLOYMENT ENGINEER's from [employer] present. They say pt looks "better" but not at baseline. Alert, readily accepted trial of 1/2 tsp applesauce, with tongue thrust, unable to achieve bilabial closure, with no laryngeal swallow observed. Audible upper airway wetness/ suctioned. Selected Entries 06/15/18 06/15/18 06/15/18 02:00 05:22 09:13 Lunch Temperature 98.6 F 98.4 F 99.8 F H 06/15/18 14:59 Lunch NPO Temperature Laboratory Tests 06/14/18 06:00 WBC 6.5 Continue NPO.
[2018-06-15] MEDS: ARFORMOTEROL TARTRATE 15 MCG/2 ML VIAL NEB SCH (20:32)
[2018-06-16] MEDS ORDERED: DEXTROSE 5%-WATER - 50 ML IVPB ONE ×3 (01:25→17:14)
[2018-06-16] MEDS ORDERED: PIPERACILLIN/TAZOBACTAM 3.375 GM VIAL IVPB ONE ×3 (01:25→17:13)
[2018-06-16] MEDS: PIPERACILLIN/TAZOB 3.375 GM 3.375 GM in DEXTROSE 5%-WATER - 50 ML IVPB SCH ×3 (01:37→18:54)
[2018-06-16] MEDS: BACLOFEN 10 MG TABLET (FP) PO SCH ×3 (05:29→22:44)
[2018-06-16] MEDS: HEPARIN NA (PORCINE) 5,000 UNITS/ML 1ML VIAL SQ SCH ×3 (05:29→22:44)
[2018-06-16] MEDS: LORazepam 2 MG/ML SDV VIAL IVPUSH SCH ×3 (05:29→22:44)
[2018-06-16 07:18] LABS: HEMATOCRIT 33.6 % (32.4-45.2); HEMOGLOBIN 10.9 GM/dL (10.7-15.3); MCH 30.2 pg (25.7-33.7); MCHC 32.4 g/dl (32.0-36.0); MEAN CELL VOLUME 93.1 fl (80-96); PLATELET COUNT 311 K/MM3 (134-434); RBC 3.61 M/mm3 (3.60-5.2); RDW 14.7 % (11.6-15.6); WHITE BLOOD COUNT 8.7 K/mm3 (4.0-10.0)
[2018-06-16] MEDS: ARFORMOTEROL TARTRATE 15 MCG/2 ML VIAL NEB SCH ×2 (07:25→20:56)
[2018-06-16 07:38] LABS: ALBUMIN 2.4 g/dl (3.4-5.0); ALK PHOS 94 U/L (45-117); ANION GAP 9 MMOL/L (8-16); BILIRUBIN,TOTAL 0.6 mg/dL (0.2-1); BLOOD UREA NITROGEN 10 mg/dL (7-18); CHLORIDE 104 mmol/L (98-107); CO2 29 mmol/L (21-32); CREATININE 0.5 mg/dL (0.55-1.3); GLUCOSE,RANDOM 65 mg/dL (74-106); MAGNESIUM 1.9 mg/dL (1.8-2.4); PHOSPHOROUS 3.3 mg/dL (2.5-4.9); POTASSIUM 3.5 mmol/L (3.5-5.1); SGOT/AST 48 U/L (15-37); SGPT/ALT 46 U/L (13-61); SODIUM 142 mmol/L (136-145); TOT PROT 5.6 g/dl (6.4-8.2)
[2018-06-16] MEDS ORDERED: D5-1/2NS+20 MEQ KCL - 20 MEQ/1,000 ML INFUS.BAG IV SCH (08:45)
[2018-06-16] MEDS: PSYLLIUM 5.85 GM PACKET PO SCH (10:23)
[2018-06-16] MEDS: CHOLECALCIFEROL (VITAMIN D3) 400 UNIT TABLET (FP) PO SCH (10:23)
[2018-06-16] MEDS: SENNOSIDES 8.6MG TABLET (FP) PO SCH (10:23)
[2018-06-16] MEDS: CHLORHEXIDINE GLUCONATE 0.12% 15ML CUP MM SCH ×2 (10:23→22:45)
[2018-06-16] MEDS: PANTOPRAZOLE 20 MG TABLET (FP) PO SCH (10:23)
[2018-06-16] MEDS: RANITIDINE HCL 150 MG TABLET (FP) PO SCH ×2 (10:23→22:45)
[2018-06-16] MEDS: CALCIUM 500MG/VIT-D 200 UNITS COMBO TABLET (FP) PO SCH ×2 (10:23→22:45)
[2018-06-16] MEDS: LORATADINE 10 MG TABLET PO SCH (10:23)
[2018-06-16] MEDS: levETIRAcetam 500 MG/5 ML INJECTION VIAL IVPB SCH ×2 (10:27→22:44)
[2018-06-16] MEDS: methylPREDNISolone NA SUCC 40 MG/1 ML VIAL IVPUSH SCH (10:30)
--- NOTE | 2018-06-16 11:58 | PN ---
Progress Note (short form) - Note Progress Note: Appears stable. Breathing is non-labored on NC O2. Desats to low 80's when off O2. Still NPO. Sounds less congested overall but still with audible congestion. Intake & Output 06/13/18 06/14/18 06/15/18 06/16/18 23:59 23:59 23:59 23:59 Intake Total 2750 850 350 200 Output Total 2 2 Balance 2748 848 350 200 Weight 100 lb Last Vital Signs Temp Pulse Resp BP Pulse Ox 98.5 F 111 H 20 128/75 95 06/16/18 09:27 06/16/18 09:27 06/16/18 09:27 06/16/18 09:27 06/15/18 21:00 Active Medications Arformoterol Tartrate (Brovana (Restricted To Pulmonology/Resp) -) 1 amp NEB RBID [facility] Last Admin: 06/16/18 07:25 Dose: 1 amp Baclofen (Lioresal -) 10 mg PO TID [facility] Last Admin: 06/16/18 05:29 Dose: Not Given Bisacodyl (Dulcolax Suppository -) 10 mg RC DAILY PRN PRN Reason: CONSTIPATION Calcium Carbonate/Cholecalciferol (Os-Hitesh 500+D -) 1 tab PO BID [facility] Last Admin: 06/16/18 10:23 Dose: Not Given Chlorhexidine Gluconate (Peridex -) 30 ml MM BID [facility] Last Admin: 06/16/18 10:23 Dose: Not Given Cholecalciferol (Vitamin D3 -) 400 unit PO DAILY [facility] Last Admin: 06/16/18 10:23 Dose: Not Given Heparin Sodium (Porcine) (Heparin -) 5,000 unit SQ TID [facility] Last Admin: 06/16/18 05:29 Dose: 5,000 unit Piperacillin Sod/Tazobactam (Sod 3.375 gm/ Dextrose) 50 mls @ 100 mls/hr IVPB Q8H-IV [facility]; Protocol Last Admin: 06/16/18 10:32 Dose: 100 mls/hr Potassium Chloride/Dextrose/Sod Cl (D5-1/2ns+20 Meq Kcl -) 20 meq in 1,000 mls @ 50 mls/hr IV ASDIR [facility] Last Admin: 06/16/18 09:04 Dose: 50 mls/hr Levetiracetam (Keppra Injection -) 500 mg IVPB BID [facility] Last Admin: 06/16/18 10:27 Dose: 500 mg Loratadine (Claritin -) 10 mg PO DAILY [facility] Last Admin: 06/16/18 10:23 Dose: Not Given Lorazepam (Ativan Injection -) 2 mg IVPUSH TID [facility] Last Admin: 06/16/18 05:29 Dose: 2 mg Methylprednisolone Sodium Succinate (Solu-Medrol -) 40 mg IVPUSH DAILY [facility] Stop: 06/18/18 10:01 Last Admin: 06/16/18 10:30 Dose: 40 mg Pantoprazole Sodium (Protonix -) 20 mg PO DAILY [facility] Last Admin: 06/16/18 10:23 Dose: Not Given Psyllium Hydrophilic Mucilloid (Metamucil (Sugar-Free) -) 5.85 gm PO DAILY [facility] Last Admin: 06/16/18 10:23 Dose: Not Given Ranitidine HCl (Zantac -) 150 mg PO BID [facility] Last Admin: 06/16/18 10:23 Dose: Not Given Senna (Senna -) 2 tab PO DAILY [facility] Last Admin: 06/16/18 10:23 Dose: Not Given Constitutional: Yes: No Distress Eyes: Yes: Conjunctiva Clear, EOM Intact HENT: Yes: Atraumatic Neck: Yes: Supple, Trachea Midline Cardiovascular: Yes: Regular Rate and Rhythm Respiratory: Yes: Cough, Diminished, On Nasal O2, Rhonchi. No: Accessory Muscle Use, Rales, SOB, SOB on Exertion, Stridor, Tachypnea, Wheezes ...Inspection: Yes: WNL ...Clubbing: No Gastrointestinal: Yes: Normal Bowel Sounds, Soft Renal/: Yes: WNL Musculoskeletal: Yes: Joint Stiffness Extremities: Yes: Shortened Edema: No Peripheral Pulses WNL: Yes Integumentary: Yes: WNL Neurological: Yes: Alert Psychiatric: Yes: Alert Labs: Laboratory Results - last 24 hr 06/16/18 06/16/18 06:30 06:30 WBC 8.7 RBC 3.61 Hgb 10.9 Hct 33.6 MCV 93.1 MCH 30.2 MCHC 32.4 RDW 14.7 Plt Count 311 D MPV 8.0 Sodium 142 Potassium 3.5 Chloride 104 Carbon Dioxide 29 Anion Gap 9 BUN 10 Creatinine 0.5 L Creat Clearance w eGFR > 60 Random Glucose 65 L Calcium 8.0 L Phosphorus 3.3 Magnesium 1.9 Total Bilirubin 0.6 AST 48 H ALT 46 Alkaline Phosphatase 94 Total Protein 5.6 L Albumin 2.4 L Problem List - Problems (1) Pneumonia Code(s): J18.9 - PNEUMONIA, UNSPECIFIED ORGANISM (2) Aspiration pneumonia Code(s): J69.0 - PNEUMONITIS DUE TO INHALATION OF FOOD AND VOMIT (3) Fever Code(s): R50.9 - FEVER, UNSPECIFIED (4) Altered mental status Code(s): R41.82 - ALTERED MENTAL STATUS, UNSPECIFIED Qualifiers: Altered mental status type: unspecified Qualified Code(s): R41.82 - Altered mental status, unspecified (5) Cerebral palsy Code(s): G80.9 - CEREBRAL PALSY, UNSPECIFIED (6) Constipation Code(s): K59.00 - CONSTIPATION, UNSPECIFIED (7) Functional quadriplegia Code(s): R53.2 - FUNCTIONAL QUADRIPLEGIA (8) Mental retardation Code(s): F79 - UNSPECIFIED INTELLECTUAL DISABILITIES (9) Seizures Code(s): R56.9 - UNSPECIFIED CONVULSIONS Assessment/Plan ABX per ID Aspiration precautions Daily Medrol x 5 days in total O2 as needed PO when cleared by S&S VTE prophylaxis BD TX Chest PT May benefit from periodic deep nasal suctioning Dr Alex Problem List - Problems (1) Pneumonia Code(s): J18.9 - PNEUMONIA, UNSPECIFIED ORGANISM (2) Aspiration pneumonia Code(s): J69.0 - PNEUMONITIS DUE TO INHALATION OF FOOD AND VOMIT (3) Fever Code(s): R50.9 - FEVER, UNSPECIFIED (4) Altered mental status Code(s): R41.82 - ALTERED MENTAL STATUS, UNSPECIFIED Qualifiers: Altered mental status type: unspecified Qualified Code(s): R41.82 - Altered mental status, unspecified (5) Cerebral palsy Code(s): G80.9 - CEREBRAL PALSY, UNSPECIFIED (6) Constipation Code(s): K59.00 - CONSTIPATION, UNSPECIFIED (7) Functional quadriplegia Code(s): R53.2 - FUNCTIONAL QUADRIPLEGIA (8) Mental retardation Code(s): F79 - UNSPECIFIED INTELLECTUAL DISABILITIES (9) Seizures Code(s): R56.9 - UNSPECIFIED CONVULSIONS
--- NOTE | 2018-06-16 15:33 | PN ---
Progress Note, STONE ROUGHER - Note Progress Note: Overall, lakes[place] congestion. Swallow reassessed, with tongue thrust, less drooling with delayed labored swallow with tongue protruded. Audible upper airway vocal wetness after each 1/ 2 tsp trial of puree. [facility] reports that this is new, not pt's baseline. It takes her a long time to eat but pt is not congested and no vocal wetness at baseline. REC: continue NPO. Consider NGT? Clinimix? MBS when improved- Wednesday? to r/o aspiration
--- NOTE | 2018-06-16 15:48 | PN ---
Progress Note, Physician History of Present Illness: still congested spiked a fever inspite of zosyn - Current Medication List Current Medications: Active Medications Arformoterol Tartrate (Brovana (Restricted To Pulmonology/Resp) -) 1 amp NEB RBID [facility] Last Admin: 06/16/18 07:25 Dose: 1 amp Baclofen (Lioresal -) 10 mg PO TID [facility] Last Admin: 06/16/18 14:17 Dose: Not Given Bisacodyl (Dulcolax Suppository -) 10 mg RC DAILY PRN PRN Reason: CONSTIPATION Calcium Carbonate/Cholecalciferol (Os-Hitesh 500+D -) 1 tab PO BID [facility] Last Admin: 06/16/18 10:23 Dose: Not Given Chlorhexidine Gluconate (Peridex -) 30 ml MM BID [facility] Last Admin: 06/16/18 10:23 Dose: Not Given Cholecalciferol (Vitamin D3 -) 400 unit PO DAILY [facility] Last Admin: 06/16/18 10:23 Dose: Not Given Heparin Sodium (Porcine) (Heparin -) 5,000 unit SQ TID [facility] Last Admin: 06/16/18 14:16 Dose: 5,000 unit Piperacillin Sod/Tazobactam (Sod 3.375 gm/ Dextrose) 50 mls @ 100 mls/hr IVPB Q8H-IV [facility]; Protocol Last Admin: 06/16/18 10:32 Dose: 100 mls/hr Potassium Chloride/Dextrose/Sod Cl (D5-1/2ns+20 Meq Kcl -) 20 meq in 1,000 mls @ 50 mls/hr IV ASDIR [facility] Last Admin: 06/16/18 09:04 Dose: 50 mls/hr Levetiracetam (Keppra Injection -) 500 mg IVPB BID [facility] Last Admin: 06/16/18 10:27 Dose: 500 mg Loratadine (Claritin -) 10 mg PO DAILY [facility] Last Admin: 06/16/18 10:23 Dose: Not Given Lorazepam (Ativan Injection -) 2 mg IVPUSH TID [facility] Last Admin: 06/16/18 14:16 Dose: 2 mg Methylprednisolone Sodium Succinate (Solu-Medrol -) 40 mg IVPUSH DAILY [facility] Stop: 06/18/18 10:01 Last Admin: 06/16/18 10:30 Dose: 40 mg Pantoprazole Sodium (Protonix -) 20 mg PO DAILY [facility] Last Admin: 06/16/18 10:23 Dose: Not Given Psyllium Hydrophilic Mucilloid (Metamucil (Sugar-Free) -) 5.85 gm PO DAILY [facility] Last Admin: 06/16/18 10:23 Dose: Not Given Ranitidine HCl (Zantac -) 150 mg PO BID [facility] Last Admin: 06/16/18 10:23 Dose: Not Given Senna (Senna -) 2 tab PO DAILY [facility] Last Admin: 06/16/18 10:23 Dose: Not Given - Objective Vital Signs: Vital Signs Temperature 98.5 F 06/16/18 09:27 Pulse Rate 111 H 06/16/18 09:27 Respiratory Rate 20 06/16/18 09:27 Blood Pressure 128/75 06/16/18 09:27 O2 Sat by Pulse Oximetry (%) 95 06/16/18 09:00 Constitutional: Yes: No Distress, Calm Cardiovascular: Yes: Regular Rate and Rhythm Respiratory: Yes: Poor Air Entry, Rhonchi Gastrointestinal: Yes: Normal Bowel Sounds, Soft Musculoskeletal: Yes: WNL Extremities: Yes: WNL Neurological: Yes: Alert, Other Labs: CBC, BMP 06/16/18 06:30 06/16/18 06:30 INR, PTT INR 1.14 (0.83-1.09) H 06/10/18 06:00 Assessment/Plan Problem List - Problems (1) Pneumonia Code(s): J18.9 - PNEUMONIA, UNSPECIFIED ORGANISM (2) Aspiration pneumonia Code(s): J69.0 - PNEUMONITIS DUE TO INHALATION OF FOOD AND VOMIT (3) Fever Code(s): R50.9 - FEVER, UNSPECIFIED (4) Altered mental status Code(s): R41.82 - ALTERED MENTAL STATUS, UNSPECIFIED Qualifiers: Altered mental status type: unspecified Qualified Code(s): R41.82 - Altered mental status, unspecified (5) Cerebral palsy Code(s): G80.9 - CEREBRAL PALSY, UNSPECIFIED (6) Constipation Code(s): K59.00 - CONSTIPATION, UNSPECIFIED (7) Functional quadriplegia Code(s): R53.2 - FUNCTIONAL QUADRIPLEGIA (8) Mental retardation Code(s): F79 - UNSPECIFIED INTELLECTUAL DISABILITIES (9) Seizures Code(s): R56.9 - UNSPECIFIED CONVULSIONS plan continue zosyn asp precautions rest as per the team neb treatments will add santhosh
--- NOTE | 2018-06-16 16:32 | PN ---
Teaching Attending Note Name of Resident: Pedro Morejon ATTENDING PHYSICIAN STATEMENT I saw and evaluated the patient. I reviewed the resident's note and discussed the case with the resident. I agree with the resident's findings and plan as documented. SUBJECTIVE:resting comfortable OBJECTIVE: Last Vital Signs Temp Pulse Resp BP Pulse Ox 100.3 F H 111 H 20 128/75 95 06/16/18 15:50 06/16/18 09:27 06/16/18 09:27 06/16/18 09:27 06/16/18 09:00 General NAD Lungs coarse breath sounds anteriorly. 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 Sepsis due to RUL PNA- likely aspiration. clinically improved. afebrile. on zosyn day 7. as per aid is at her baseline at this time. will repeat swallow eval. if unable to advance diet will place NGT and start TF. 2. Acute hypoxic respiratory distress- due to PNA. improved. 93% on RA. has noted to occasionally de-saturate but believe this to be positional. on medrol 40mg day 11/15. pulm on board 3. Lactic acidosis, resolved 4. Cerebral palsy 5. Seizure disorder- no seizure like motion noted. cont anti-eleptics. 6. Mental retardation 7. Scoliosis 8. DVT ppx- lovenox
[2018-06-16] MEDS: VANCOMYCIN 1 GRAM (PRE-DOCKED) 1,000 MG/250 ML BAG IVPB SCH (16:33)
--- NOTE | 2018-06-16 16:51 | PN ---
Physical Exam: SUBJECTIVE: Patient seen and examined this AM. As per the aide she is clinically improving. She still is having some cough and not tolerating any PO. OBJECTIVE: Vital Signs Period Temp Pulse Resp BP Sys/Ascencio Pulse Ox Last 24 Hr 97.7 F-100.3 F 94-111 20-22 119-130/64-80 95-95 GENERAL: Asleep, in no acute distress HEAD: Microcephalic, atraumatic. EYES: PERRL, no scleral icterus EARS, NOSE, THROAT: oropharynx clear with less mucus secretions. Moist mucous membranes. LUNGS: Course breath sounds improving, with some wheezing, poor inspiratory effort HEART: Regular rate and rhythm, normal S1 and S2 without murmur ABDOMEN: Soft, nontender to palpation, normoactive bowel sounds MUSCULOSKELETAL: Severe levoscoliosis EXTREMITIES: Contracted, some dependent edema in b/l UE, IV in place on left forearm without erythema or infiltration SKIN: Warm, dry, no rashes or lesions noted Laboratory Results - last 24 hr 06/16/18 06/16/18 06:30 06:30 WBC 8.7 RBC 3.61 Hgb 10.9 Hct 33.6 MCV 93.1 MCH 30.2 MCHC 32.4 RDW 14.7 Plt Count 311 D MPV 8.0 Sodium 142 Potassium 3.5 Chloride 104 Carbon Dioxide 29 Anion Gap 9 BUN 10 Creatinine 0.5 L Creat Clearance w eGFR > 60 Random Glucose 65 L Calcium 8.0 L Phosphorus 3.3 Magnesium 1.9 Total Bilirubin 0.6 AST 48 H ALT 46 Alkaline Phosphatase 94 Total Protein 5.6 L Albumin 2.4 L Active Medications Generic Name Dose Route Start Last Admin Trade Name Freq PRN Reason Stop Dose Admin Arformoterol Tartrate 1 amp 06/15/18 20:00 06/16/18 07:25 Brovana (Restricted To Pulmonology/Resp) - NEB 1 amp RBID [facility] Administration Baclofen 10 mg 06/10/18 08:00 06/16/18 14:17 Lioresal - PO Not Given TID [facility] Bisacodyl 10 mg 06/10/18 14:38 Dulcolax Suppository - RC DAILY PRN CONSTIPATION Calcium Carbonate/Cholecalciferol 1 tab 06/10/18 22:00 06/16/18 10:23 Os-Hitesh 500+D - PO Not Given BID [facility] Chlorhexidine Gluconate 30 ml 06/10/18 22:00 06/16/18 10:23 Peridex - MM Not Given BID [facility] Cholecalciferol 400 unit 06/11/18 10:00 06/16/18 10:23 Vitamin D3 - PO Not Given DAILY [facility] Heparin Sodium (Porcine) 5,000 unit 06/10/18 22:00 06/16/18 14:16 Heparin - SQ 5,000 unit TID [facility] Administration Piperacillin Sod/Tazobactam 50 mls @ 100 mls/hr 06/10/18 18:00 06/16/18 10:32 Sod 3.375 gm/ Dextrose IVPB 100 mls/hr Q8H-IV [facility] Administration Protocol Potassium Chloride/Dextrose/Sod Cl 20 meq in 1,000 mls @ 50 mls/hr 06/16/18 08 :45 06/16/18 09:04 D5-1/2ns+20 Meq Kcl - IV 50 mls/hr ASDIR [facility] Administration Vancomycin HCl 1,000 mg in 250 mls @ 200 mls/hr 06/16/18 16:00 06/16/18 16:33 Vancomycin (Pre-Docked) IVPB 200 mls/hr Q24H [facility] Administration Protocol Levetiracetam 500 mg 06/10/18 22:00 06/16/18 10:27 Keppra Injection - IVPB 500 mg BID [facility] Administration Loratadine 10 mg 06/10/18 14:45 06/16/18 10:23 Claritin - PO Not Given DAILY [facility] Lorazepam 2 mg 06/12/18 15:30 06/16/18 14:16 Ativan Injection - IVPUSH 2 mg TID [facility] Administration Methylprednisolone Sodium Succinate 40 mg 06/14/18 10:00 06/16/18 10:30 Solu-Medrol - IVPUSH 06/18/18 10:01 40 mg DAILY [facility] Administration Pantoprazole Sodium 20 mg 06/10/18 14:45 06/16/18 10:23 Protonix - PO Not Given DAILY [facility] Psyllium Hydrophilic Mucilloid 5.85 gm 06/10/18 14:45 06/16/18 10:23 Metamucil (Sugar-Free) - PO Not Given DAILY [facility] Ranitidine HCl 150 mg 06/10/18 22:00 06/16/18 10:23 Zantac - PO Not Given BID [facility] Senna 2 tab 06/11/18 10:00 06/16/18 10:23 Senna - PO Not Given DAILY [facility] ASSESSMENT/PLAN: 52 yo Female with PMH Cerebral Palsy with spastic quadriplegia, Mental Retardation, Epilepsy, Scoliosis presented from [facility] for vomiting followed by high fevers and cough. Sepsis secondary to Aspiration pneumonia vs pneumonitis -Febrile 103.5 on admission, Tachycardic, tachypnic -Fevers improving -CXR: No gross evidence of infiltration -Chest CT: RUL congestion suspicious for pneumonia vs pneumonitis -ID consult appreciated Zosyn 3.375 gm Q8 IV -Ventolin NEBs QID -Pulmonology consult appreciated -Methylprednisolone 40 mg IV Day 3 of 5 while inpatient -Lactic acid mildly elevated on admission 3.6, resolved -Clinically improving -Speech and Swallow eval, still not tolerating PO, consider NGT Epilepsy -Keppra 500 mg PO BID switched to IV until tolerates PO -Ativan 2 gm TID [facility] Spasticity -Pt on Baclofen 10 mg TID -Unable to give for now due to strict NPO -Will monitor carefully for increased spasticity and start baclofen as soon as pt tolerates PO -Discussed with pharmacy, no possible replacement without NG tube which pt will likely not tolerate -Ativan 2 gm TID DVT Prophylaxis -Heparin 5000 units SQ TID FEN -Fluids: D5 1/2 NS with 20 units K @ 50 cc/hr -Electrolytes: No electrolyte abnormalities, BMP in AM -Nutrition: NPO per speech and swallow Disposition Med/Surg Visit type - Emergency Visit Emergency Visit: Yes ED Registration Date: 06/09/18 Care time: The patient presented to the Emergency Department on the above date and was hospitalized for further evaluation of their emergent condition. - New Patient This patient is new to me today: No - Critical Care Critical Care patient: No
[2018-06-16] MEDS ORDERED: PT OWN MED DRAWER 7, Y5N ONE (22:22)
[2018-06-17] MEDS ORDERED: PIPERACILLIN/TAZOBACTAM 3.375 GM VIAL IVPB ONE ×3 (01:45→18:11)
[2018-06-17] MEDS ORDERED: DEXTROSE 5%-WATER - 50 ML IVPB ONE ×2 (01:45→18:12)
[2018-06-17] MEDS: PIPERACILLIN/TAZOB 3.375 GM 3.375 GM in DEXTROSE 5%-WATER - 50 ML IVPB SCH ×3 (01:52→18:16)
[2018-06-17] MEDS: LORazepam 2 MG/ML SDV VIAL IVPUSH SCH ×3 (05:38→21:31)
[2018-06-17] MEDS: HEPARIN NA (PORCINE) 5,000 UNITS/ML 1ML VIAL SQ SCH ×3 (05:38→21:31)
[2018-06-17] MEDS: BACLOFEN 10 MG TABLET (FP) PO SCH ×3 (05:38→21:38)
[2018-06-17] MEDS: ARFORMOTEROL TARTRATE 15 MCG/2 ML VIAL NEB SCH ×2 (07:30→08:15)
--- NOTE | 2018-06-17 08:29 | PN ---
Physical Exam: SUBJECTIVE: Patient seen and examined this AM. NG tube in place and Jevity currently running. Pt is comfortable and resting in bed smiling. OBJECTIVE: Vital Signs Period Temp Pulse Resp BP Sys/Ascencio Pulse Ox Last 24 Hr 98.5 F-100.3 F 80-111 20-20 115-135/66-77 95-95 GENERAL: Asleep, in no acute distress HEAD: Microcephalic, atraumatic. EYES: PERRL, no scleral icterus EARS, NOSE, THROAT: oropharynx clear with less mucus secretions. Moist mucous membranes. NG tube in place and secured. LUNGS: Course breath sounds improving, with some wheezing, poor inspiratory effort HEART: Regular rate and rhythm, normal S1 and S2 without murmur ABDOMEN: Soft, nontender to palpation, normoactive bowel sounds MUSCULOSKELETAL: Severe levoscoliosis EXTREMITIES: Contracted, some dependent edema in b/l UE, IV in place on left forearm without erythema or infiltration SKIN: Warm, dry, no rashes or lesions noted Active Medications Generic Name Dose Route Start Last Admin Trade Name Freq PRN Reason Stop Dose Admin Arformoterol Tartrate 1 amp 06/15/18 20:00 06/16/18 20:56 Brovana (Restricted To Pulmonology/Resp) - NEB 1 amp RBID [facility]AR[facility] Administration Baclofen 10 mg 06/10/18 08:00 06/17/18 05:38 Lioresal - PO 10 mg TID [facility] Administration Bisacodyl 10 mg 06/10/18 14:38 Dulcolax Suppository - RC DAILY PRN CONSTIPATION Calcium Carbonate/Cholecalciferol 1 tab 06/10/18 22:00 06/16/18 22:45 Os-Hitesh 500+D - PO 1 tab BID [facility] Administration Chlorhexidine Gluconate 30 ml 06/10/18 22:00 06/16/18 22:45 Peridex - MM Not Given BID [facility] Cholecalciferol 400 unit 06/11/18 10:00 06/16/18 10:23 Vitamin D3 - PO Not Given DAILY [facility] Heparin Sodium (Porcine) 5,000 unit 06/10/18 22:00 06/17/18 05:38 Heparin - SQ 5,000 unit TID [facility] Administration Piperacillin Sod/Tazobactam 50 mls @ 100 mls/hr 06/10/18 18:00 06/17/18 01:52 Sod 3.375 gm/ Dextrose IVPB 100 mls/hr Q8H-IV [facility] Administration Protocol Vancomycin HCl 1,000 mg in 250 mls @ 200 mls/hr 06/16/18 16:00 06/16/18 16:33 Vancomycin (Pre-Docked) IVPB 200 mls/hr Q24H [facility] Administration Protocol Levetiracetam 500 mg 06/10/18 22:00 06/16/18 22:44 Keppra Injection - IVPB 500 mg BID [facility] Administration Loratadine 10 mg 06/10/18 14:45 06/16/18 10:23 Claritin - PO Not Given DAILY [facility] Lorazepam 2 mg 06/12/18 15:30 06/17/18 05:38 Ativan Injection - IVPUSH 2 mg TID [facility] Administration Methylprednisolone Sodium Succinate 40 mg 06/14/18 10:00 06/16/18 10:30 Solu-Medrol - IVPUSH 06/18/18 10:01 40 mg DAILY [facility] Administration Pantoprazole Sodium 20 mg 06/10/18 14:45 06/16/18 10:23 Protonix - PO Not Given DAILY [facility] Psyllium Hydrophilic Mucilloid 5.85 gm 06/10/18 14:45 06/16/18 10:23 Metamucil (Sugar-Free) - PO Not Given DAILY [facility] Ranitidine HCl 150 mg 06/10/18 22:00 06/16/18 22:45 Zantac - PO 150 mg BID [facility] Administration Senna 2 tab 06/11/18 10:00 06/16/18 10:23 Senna - PO Not Given DAILY [facility] ASSESSMENT/PLAN: 52 yo Female with PMH Cerebral Palsy with spastic quadriplegia, Mental Retardation, Epilepsy, Scoliosis presented from [facility] [place] for [place] followed by high fevers and cough. Sepsis secondary to Aspiration pneumonia vs pneumonitis -Febrile 103.5 on admission, Tachycardic, tachypnic -Fevers improving -CXR: No gross evidence of infiltration -Chest CT: RUL congestion suspicious for pneumonia vs pneumonitis -ID consult appreciated Zosyn 3.375 gm Q8 IV, Vancomycin 1 gm IV Daily -Ventolin NEBs QID -Pulmonology consult appreciated -Methylprednisolone 40 mg IV Day 4 of 5 while inpatient -Lactic acid mildly elevated on admission 3.6, resolved -Clinically improving -NPO, NG Tube with jevity feeds as below Abdominal Distension -Noted after starting feeds, jevity temoporarily held -KUB Flat plate - bowel distension concerning for ileus, no obstruction or fecal impaction noted -Resume feeds at 20 cc/hr with no titration instructions for now -NG tube residual checks Qshift, hold if > 150 cc Epilepsy -Keppra 500 mg PO BID switched to IV until tolerates PO -Ativan 2 gm TID [facility] Spasticity -Pt on Baclofen 10 mg TID -Unable to give for now due to strict NPO -Will monitor carefully for increased spasticity and start baclofen as soon as pt tolerates PO -Discussed with pharmacy, no possible replacement without NG tube which pt will likely not tolerate -Ativan 2 gm TID DVT Prophylaxis -Heparin 5000 units SQ TID FEN -Fluids: none -Electrolytes: No electrolyte abnormalities, BMP in AM -Nutrition: NPO per speech and swallow, NG tube, Jevity 1.5 @ 20 cc/hr Disposition Med/Surg Visit type - Emergency Visit Emergency Visit: Yes ED Registration Date: 06/09/18 Care time: The patient presented to the Emergency Department on the above date and was hospitalized for further evaluation of their emergent condition. - New Patient This patient is new to me today: No - Critical Care Critical Care patient: No
[2018-06-17 08:30] LABS: HEMOGLOBIN 10.9 GM/dL (10.7-15.3); MCH 30.5 pg (25.7-33.7); MEAN CELL VOLUME 92.4 fl (80-96); MEAN PLT VOLUME 6.8 fl (7.5-11.1); PLATELET COUNT 392 K/MM3 (134-434); RBC 3.57 M/mm3 (3.60-5.2); RDW 14.4 % (11.6-15.6); WHITE BLOOD COUNT 8.7 K/mm3 (4.0-10.0)
--- NOTE | 2018-06-17 10:04 | PN ---
Progress Note, Physician History of Present Illness: patient still congested ng in place afebrile now awake - Current Medication List Current Medications: Active Medications Arformoterol Tartrate (Brovana (Restricted To Pulmonology/Resp) -) 1 amp NEB RBID [facility] Last Admin: 06/17/18 07:30 Dose: 1 amp Baclofen (Lioresal -) 10 mg PO TID [facility] Last Admin: 06/17/18 05:38 Dose: 10 mg Bisacodyl (Dulcolax Suppository -) 10 mg RC DAILY PRN PRN Reason: CONSTIPATION Calcium Carbonate/Cholecalciferol (Os-Hitesh 500+D -) 1 tab PO BID [facility] Last Admin: 06/16/18 22:45 Dose: 1 tab Chlorhexidine Gluconate (Peridex -) 30 ml MM BID [facility] Last Admin: 06/16/18 22:45 Dose: Not Given Cholecalciferol (Vitamin D3 -) 400 unit PO DAILY [facility] Last Admin: 06/16/18 10:23 Dose: Not Given Heparin Sodium (Porcine) (Heparin -) 5,000 unit SQ TID [facility] Last Admin: 06/17/18 05:38 Dose: 5,000 unit Piperacillin Sod/Tazobactam (Sod 3.375 gm/ Dextrose) 50 mls @ 100 mls/hr IVPB Q8H-IV [facility]; Protocol Last Admin: 06/17/18 01:52 Dose: 100 mls/hr Vancomycin HCl (Vancomycin (Pre-Docked)) 1,000 mg in 250 mls @ 200 mls/hr IVPB Q24H [facility]; Protocol Last Admin: 06/16/18 16:33 Dose: 200 mls/hr Levetiracetam (Keppra Injection -) 500 mg IVPB BID [facility] Last Admin: 06/16/18 22:44 Dose: 500 mg Loratadine (Claritin -) 10 mg PO DAILY [facility] Last Admin: 06/16/18 10:23 Dose: Not Given Lorazepam (Ativan Injection -) 2 mg IVPUSH TID [facility] Last Admin: 06/17/18 05:38 Dose: 2 mg Methylprednisolone Sodium Succinate (Solu-Medrol -) 40 mg IVPUSH DAILY [facility] Stop: 06/18/18 10:01 Last Admin: 06/16/18 10:30 Dose: 40 mg Pantoprazole Sodium (Protonix -) 20 mg PO DAILY [facility] Last Admin: 06/16/18 10:23 Dose: Not Given Psyllium Hydrophilic Mucilloid (Metamucil (Sugar-Free) -) 5.85 gm PO DAILY [facility] Last Admin: 06/16/18 10:23 Dose: Not Given Ranitidine HCl (Zantac -) 150 mg PO BID [facility] Last Admin: 06/16/18 22:45 Dose: 150 mg Senna (Senna -) 2 tab PO DAILY [facility] Last Admin: 06/16/18 10:23 Dose: Not Given - Objective Vital Signs: Vital Signs Temperature 98.1 F 06/17/18 09:50 Pulse Rate 67 06/17/18 09:50 Respiratory Rate 20 06/17/18 09:50 Blood Pressure 124/75 06/17/18 09:50 O2 Sat by Pulse Oximetry (%) 95 06/16/18 21:00 Constitutional: Yes: No Distress, Calm Cardiovascular: Yes: Regular Rate and Rhythm Respiratory: Yes: Poor Air Entry, Rhonchi Gastrointestinal: Yes: Normal Bowel Sounds, Soft, Other (ng in place) Musculoskeletal: Yes: WNL Extremities: Yes: Other Neurological: Yes: Alert, Other Labs: CBC, BMP 06/17/18 07:46 06/16/18 06:30 INR, PTT INR 1.14 (0.83-1.09) H 06/10/18 06:00 Assessment/Plan Problem List - Problems (1) Pneumonia Code(s): J18.9 - PNEUMONIA, UNSPECIFIED ORGANISM (2) Aspiration pneumonia Code(s): J69.0 - PNEUMONITIS DUE TO INHALATION OF FOOD AND VOMIT (3) Fever Code(s): R50.9 - FEVER, UNSPECIFIED (4) Altered mental status Code(s): R41.82 - ALTERED MENTAL STATUS, UNSPECIFIED Qualifiers: Altered mental status type: unspecified Qualified Code(s): R41.82 - Altered mental status, unspecified (5) Cerebral palsy Code(s): G80.9 - CEREBRAL PALSY, UNSPECIFIED (6) Constipation Code(s): K59.00 - CONSTIPATION, UNSPECIFIED (7) Functional quadriplegia Code(s): R53.2 - FUNCTIONAL QUADRIPLEGIA (8) Mental retardation Code(s): F79 - UNSPECIFIED INTELLECTUAL DISABILITIES (9) Seizures Code(s): R56.9 - UNSPECIFIED CONVULSIONS plan continue abx ng feeding rest as per the team asp precautions
[2018-06-17] MEDS: methylPREDNISolone NA SUCC 40 MG/1 ML VIAL IVPUSH SCH (11:15)
[2018-06-17] MEDS: levETIRAcetam 500 MG/5 ML INJECTION VIAL IVPB SCH ×2 (11:17→21:31)
[2018-06-17] MEDS: BISACODYL 10 MG SUPP.RECT RC PRN (11:35)
[2018-06-17] MEDS: PANTOPRAZOLE 20 MG TABLET (FP) PO SCH (11:44)
[2018-06-17] MEDS: CALCIUM 500MG/VIT-D 200 UNITS COMBO TABLET (FP) PO SCH ×2 (11:44→21:38)
[2018-06-17] MEDS: LORATADINE 10 MG TABLET PO SCH (11:44)
[2018-06-17] MEDS: CHLORHEXIDINE GLUCONATE 0.12% 15ML CUP MM SCH ×2 (11:44→21:38)
[2018-06-17] MEDS: PSYLLIUM 5.85 GM PACKET PO SCH (11:44)
[2018-06-17] MEDS: RANITIDINE HCL 150 MG TABLET (FP) PO SCH ×2 (11:45→21:39)
[2018-06-17] MEDS: CHOLECALCIFEROL (VITAMIN D3) 400 UNIT TABLET (FP) PO SCH (11:45)
[2018-06-17] MEDS: SENNOSIDES 8.6MG TABLET (FP) PO SCH (11:45)
--- NOTE | 2018-06-17 13:13 | PN ---
Teaching Attending Note Name of Resident: Pedro Morejon ATTENDING PHYSICIAN STATEMENT I saw and evaluated the patient. I reviewed the resident's note and discussed the case with the resident. I agree with the resident's findings and plan as documented. SUBJECTIVE:resting comfortable Reported that her abdomen appeared distended. TF were held. residuals are not high. has not had BM in 4-5 days OBJECTIVE: Last Vital Signs Temp Pulse Resp BP Pulse Ox 98.1 F 67 20 124/75 95 06/17/18 09:50 06/17/18 09:50 06/17/18 09:50 06/17/18 09:50 06/16/18 21:00 General NAD, alert, tracking Lungs coarse breath sounds anteriorly. 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 Sepsis due to RUL PNA- likely aspiration. had low grade fever yesterday and started on vanco. no leukocytosis. CXR done to confirm NGT placement showing questionable L base infiltrate but more likely atelectasis as pt clinically improved. (mental status is better and less supplemental oxygen). RUL infiltrate resolved. on zosyn day 8. Repeat swallow eval as pt appears to be most alert since arrival. if not will need MBS. 2. Abdominal distention- not appreciated on my exam however hard to obtain good exam as pt is unable to lay flat. hold TF at this time and obtain AXR. concern for ileus vs constipation. if nothing concerning can resume TF and will need to start bowel regimen 3. Acute hypoxic respiratory distress- due to PNA. improved. on medrol 40mg day 4/5. nebs/ chest PT. pulm on board 4. Lactic acidosis, resolved 5. Cerebral palsy 6. Seizure disorder- no seizure like motion noted. cont anti-eleptics. 7. Mental retardation 8. Scoliosis 9. DVT ppx- lovenox
--- NOTE | 2018-06-17 13:39 | PN ---
Progress Note (short form) - Note Progress Note: PULMONARY APPEARS STABLE BREATHING NON LABORED AFEBRILE TODAY NGT/O2 NASAL PALE/ANICTERIC SCATTERED CONGESTIVE BREATH SOUNDS S1S2 BS+ NO EDEMA LABS/MEDS/NOTES/IMAGES/MICRO REVIEWED (1) Pneumonia Code(s): J18.9 - PNEUMONIA, UNSPECIFIED ORGANISM (2) Aspiration pneumonia Code(s): J69.0 - PNEUMONITIS DUE TO INHALATION OF FOOD AND VOMIT (3) Fever Code(s): R50.9 - FEVER, UNSPECIFIED (4) Altered mental status Code(s): R41.82 - ALTERED MENTAL STATUS, UNSPECIFIED Qualifiers: Altered mental status type: unspecified Qualified Code(s): R41.82 - Altered mental status, unspecified (5) Cerebral palsy Code(s): G80.9 - CEREBRAL PALSY, UNSPECIFIED (6) Constipation Code(s): K59.00 - CONSTIPATION, UNSPECIFIED (7) Functional quadriplegia Code(s): R53.2 - FUNCTIONAL QUADRIPLEGIA (8) Mental retardation Code(s): F79 - UNSPECIFIED INTELLECTUAL DISABILITIES (9) Seizures Code(s): R56.9 - UNSPECIFIED CONVULSIONS Assessment/Plan ABX per ID Aspiration precautions Daily Medrol x 5 days in total O2 as needed PO when cleared by S&S VTE prophylaxis BD TX Chest PT May benefit from periodic deep nasal suctioning Nicola MORALES MD
[2018-06-17] MEDS: VANCOMYCIN 1 GRAM (PRE-DOCKED) 1,000 MG/250 ML BAG IVPB SCH (16:22)
[2018-06-18] MEDS ORDERED: PIPERACILLIN/TAZOBACTAM 3.375 GM VIAL IVPB ONE ×3 (02:01→17:20)
[2018-06-18] MEDS ORDERED: DEXTROSE 5%-WATER - 50 ML IVPB ONE ×3 (02:01→17:20)
[2018-06-18] MEDS: PIPERACILLIN/TAZOB 3.375 GM 3.375 GM in DEXTROSE 5%-WATER - 50 ML IVPB SCH ×3 (02:10→17:22)
[2018-06-18] MEDS: BACLOFEN 10 MG TABLET (FP) PO SCH ×4 (06:00→21:54)
[2018-06-18] MEDS: LORazepam 2 MG/ML SDV VIAL IVPUSH SCH ×3 (06:00→21:16)
[2018-06-18] MEDS: HEPARIN NA (PORCINE) 5,000 UNITS/ML 1ML VIAL SQ SCH ×3 (06:00→21:16)
[2018-06-18] MEDS: ARFORMOTEROL TARTRATE 15 MCG/2 ML VIAL NEB SCH ×2 (08:20→20:45)
[2018-06-18] MEDS ORDERED: PT OWN MED DRAWER 7, Y5N ONE (10:17)
[2018-06-18] MEDS: levETIRAcetam 500 MG/5 ML INJECTION VIAL IVPB SCH ×3 (10:25→21:36)
[2018-06-18] MEDS: PSYLLIUM 5.85 GM PACKET PO SCH (10:25)
[2018-06-18] MEDS: SENNOSIDES 8.6MG TABLET (FP) PO SCH (10:26)
[2018-06-18] MEDS: CALCIUM 500MG/VIT-D 200 UNITS COMBO TABLET (FP) PO SCH ×3 (10:26→21:54)
[2018-06-18] MEDS: CHOLECALCIFEROL (VITAMIN D3) 400 UNIT TABLET (FP) PO SCH (10:26)
[2018-06-18] MEDS: PANTOPRAZOLE 20 MG TABLET (FP) PO SCH (10:26)
[2018-06-18] MEDS: RANITIDINE HCL 150 MG TABLET (FP) PO SCH ×3 (10:27→21:55)
[2018-06-18] MEDS: CHLORHEXIDINE GLUCONATE 0.12% 15ML CUP MM SCH ×2 (10:28→21:16)
[2018-06-18] MEDS: LORATADINE 10 MG TABLET PO SCH (10:28)
[2018-06-18] MEDS: methylPREDNISolone NA SUCC 40 MG/1 ML VIAL IVPUSH SCH (10:33)
--- NOTE | 2018-06-18 10:52 | PN ---
Progress Note (short form) - Note Progress Note: resting comfortable Current Medications Generic Name Dose Route Start Last Admin Trade Name Freq PRN Reason Stop Dose Admin Arformoterol Tartrate 1 amp 06/15/18 20:00 06/18/18 08:20 Brovana (Restricted To Pulmonology/Resp) - NEB 1 amp RBID [facility] Administration Baclofen 10 mg 06/10/18 08:00 06/18/18 06:00 Lioresal - PO Not Given TID [facility] Bisacodyl 10 mg 06/10/18 14:38 06/17/18 11:35 Dulcolax Suppository - RC 10 mg DAILY PRN Administration CONSTIPATION Calcium Carbonate/Cholecalciferol 1 tab 06/10/18 22:00 06/18/18 10:26 Os-Hitesh 500+D - PO 1 tab BID [facility] Administration Chlorhexidine Gluconate 30 ml 06/10/18 22:00 06/18/18 10:28 Peridex - MM Not Given BID [facility] Cholecalciferol 400 unit 06/11/18 10:00 06/18/18 10:26 Vitamin D3 - PO 400 unit DAILY [facility] Administration Heparin Sodium (Porcine) 5,000 unit 06/10/18 22:00 06/18/18 06:00 Heparin - SQ 5,000 unit TID [facility] Administration Piperacillin Sod/Tazobactam 50 mls @ 100 mls/hr 06/10/18 18:00 06/18/18 10:27 Sod 3.375 gm/ Dextrose IVPB 100 mls/hr Q8H-IV [facility] Administration Protocol Vancomycin HCl 1,000 mg in 250 mls @ 200 mls/hr 06/16/18 16:00 06/17/18 16:22 Vancomycin (Pre-Docked) IVPB 200 mls/hr Q24H [facility] Administration Protocol Levetiracetam 500 mg 06/10/18 22:00 06/18/18 10:25 Keppra Injection - IVPB 500 mg BID [facility] Administration Loratadine 10 mg 06/10/18 14:45 06/17/18 11:44 Claritin - PO Not Given DAILY [facility] Lorazepam 2 mg 06/12/18 15:30 06/18/18 06:00 Ativan Injection - IVPUSH 2 mg TID [facility] Administration Pantoprazole Sodium 20 mg 06/10/18 14:45 06/18/18 10:26 Protonix - PO 20 mg DAILY [facility] Administration Psyllium Hydrophilic Mucilloid 5.85 gm 06/10/18 14:45 06/18/18 10:25 Metamucil (Sugar-Free) - PO Not Given DAILY [facility] Ranitidine HCl 150 mg 06/10/18 22:00 06/18/18 10:27 Zantac - PO 150 mg BID [facility] Administration Senna 2 tab 06/11/18 10:00 06/18/18 10:26 Senna - PO 2 tab DAILY [facility] Administration Last Vital Signs Temp Pulse Resp BP Pulse Ox 99.3 F 68 20 127/76 97 06/18/18 06:00 06/18/18 06:00 06/18/18 06:00 06/18/18 06:00 06/17/18 21:00 General NAD, alert, tracking Lungs coarse breath sounds anteriorly. abdomen soft NT/ND extremities contracted CBCD WBC 8.7 K/mm3 (4.0-10.0) 06/17/18 07:46 RBC 3.57 M/mm3 (3.60-5.2) L 06/17/18 07:46 Hgb 10.9 GM/dL (10.7-15.3) 06/17/18 07:46 Hct 33.0 % (32.4-45.2) 06/17/18 07:46 MCV 92.4 fl (80-96) 06/17/18 07:46 MCHC 33.0 g/dl (32.0-36.0) 06/17/18 07:46 RDW 14.4 % (11.6-15.6) 06/17/18 07:46 Plt Count 392 K/MM3 (134-434) D 06/17/18 07:46 MPV 6.8 fl (7.5-11.1) L D 06/17/18 07:46 CMP Sodium 142 mmol/L (136-145) 06/16/18 06:30 Potassium 3.5 mmol/L (3.5-5.1) 06/16/18 06:30 Chloride 104 mmol/L (98-107) 06/16/18 06:30 Carbon Dioxide 29 mmol/L (21-32) 06/16/18 06:30 Anion Gap 9 MMOL/L (8-16) 10/04/18 06:30 BUN 10 mg/dL (7-18) 06/16/18 06:30 Creatinine 0.5 mg/dL (0.55-1.3) L 06/16/18 06:30 Creat Clearance w eGFR > 60 (>60) 06/16/18 06:30 Calcium 8.0 mg/dL (8.5-10.1) L 06/16/18 06:30 Total Bilirubin 0.6 mg/dL (0.2-1) 06/16/18 06:30 AST 48 U/L (15-37) H 06/16/18 06:30 ALT 46 U/L (13-61) 06/16/18 06:30 Alkaline Phosphatase 94 U/L (45-117) 06/16/18 06:30 Total Protein 5.6 g/dl (6.4-8.2) L 06/16/18 06:30 Albumin 2.4 g/dl (3.4-5.0) L 06/16/18 06:30 Microbiology 06/12/18 20:30 Blood Culture - Final Blood - Peripheral Venous NO GROWTH AFTER 5 DAYS INCUBATION 06/12/18 17:00 Blood Culture - Final Blood - Peripheral Venous NO GROWTH AFTER 5 DAYS INCUBATION ASSESSMENT AND PLAN: 52 yo M with PMHx of mental retardation, cerebral palsy with spastic quadriplegia, scoliosis, epilepsy(last seizure activity February of 2017, currently receiving diazepam 5 mg 3 tabs po BID and Keppra 500 mg BID), b/l foot contractures, 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 Sepsis due to RUL PNA- likely aspiration. afebrile. no leukcoytosis. refusing RN to suction. will cont to attempt. On vanco day 3 and zosyn day 9. tolerating TF. plan for MBS on Wednesday. 2. Abdominal distention-AXR showing ileus. tolerating TF with low residuals. good sized BM reported by aide. will cont to monitor. 3. Acute hypoxic respiratory distress- due to PNA. improved. on medrol 40mg day 01/15. nebs/ chest PT. pulm on board 4. Lactic acidosis, resolved 5. Cerebral palsy 6. Seizure disorder- no seizure like motion noted. cont anti-eleptics. 7. Mental retardation 8. Scoliosis 9. DVT ppx- lovenox Visit type - Emergency Visit Emergency Visit: Yes ED Registration Date: 06/09/18 Care time: The patient presented to the Emergency Department on the above date and was hospitalized for further evaluation of their emergent condition. - New Patient This patient is new to me today: No - Critical Care Critical Care patient: No - Discharge Referral Referred to [facility] Med P.C[facility] No
--- NOTE | 2018-06-18 13:58 | PN ---
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 - Current Medication List Current Medications: Active Medications Arformoterol Tartrate (Brovana (Restricted To Pulmonology/Resp) -) 1 amp NEB RBID [facility] Last Admin: 06/18/18 08:20 Dose: 1 amp Baclofen (Lioresal -) 10 mg PO TID [facility] Last Admin: 06/18/18 06:00 Dose: Not Given Bisacodyl (Dulcolax Suppository -) 10 mg RC DAILY PRN PRN Reason: CONSTIPATION Last Admin: 06/17/18 11:35 Dose: 10 mg Calcium Carbonate/Cholecalciferol (Os-Hitesh 500+D -) 1 tab PO BID [facility] Last Admin: 06/18/18 10:26 Dose: 1 tab Chlorhexidine Gluconate (Peridex -) 30 ml MM BID [facility] Last Admin: 06/18/18 10:28 Dose: Not Given Cholecalciferol (Vitamin D3 -) 400 unit PO DAILY [facility] Last Admin: 06/18/18 10:26 Dose: 400 unit Heparin Sodium (Porcine) (Heparin -) 5,000 unit SQ TID [facility] Last Admin: 06/18/18 06:00 Dose: 5,000 unit Piperacillin Sod/Tazobactam (Sod 3.375 gm/ Dextrose) 50 mls @ 100 mls/hr IVPB Q8H-IV [facility]; Protocol Last Admin: 06/18/18 10:27 Dose: 100 mls/hr Vancomycin HCl (Vancomycin (Pre-Docked)) 1,000 mg in 250 mls @ 200 mls/hr IVPB Q24H [facility]; Protocol Last Admin: 06/17/18 16:22 Dose: 200 mls/hr Levetiracetam (Keppra Injection -) 500 mg IVPB BID [facility] Last Admin: 06/18/18 10:25 Dose: 500 mg Loratadine (Claritin -) 10 mg PO DAILY [facility] Last Admin: 06/17/18 11:44 Dose: Not Given Lorazepam (Ativan Injection -) 2 mg IVPUSH TID [facility] Last Admin: 06/18/18 06:00 Dose: 2 mg Pantoprazole Sodium (Protonix -) 20 mg PO DAILY [facility] Last Admin: 06/18/18 10:26 Dose: 20 mg Psyllium Hydrophilic Mucilloid (Metamucil (Sugar-Free) -) 5.85 gm PO DAILY [facility] Last Admin: 06/18/18 10:25 Dose: Not Given Ranitidine HCl (Zantac -) 150 mg PO BID [facility] Last Admin: 06/18/18 10:27 Dose: 150 mg Senna (Senna -) 2 tab PO DAILY [facility] Last Admin: 06/18/18 10:26 Dose: 2 tab - Objective Vital Signs: Vital Signs Temperature 99.3 F 06/18/18 06:00 Pulse Rate 68 06/18/18 06:00 Respiratory Rate 20 06/18/18 06:00 Blood Pressure 127/76 06/18/18 06:00 O2 Sat by Pulse Oximetry (%) 97 06/17/18 21:00 Constitutional: Yes: Calm Cardiovascular: Yes: Regular Rate and Rhythm Respiratory: Yes: Poor Air Entry, Rhonchi Gastrointestinal: Yes: Normal Bowel Sounds, Soft, Other (ng tube in place) Musculoskeletal: Yes: WNL Extremities: Yes: WNL Neurological: Yes: Alert, Other Psychiatric: Yes: Other Labs: CBC, BMP 06/17/18 07:46 06/16/18 06:30 INR, PTT INR 1.14 (0.83-1.09) H 06/10/18 06:00 Assessment/Plan Problem List - Problems (1) Pneumonia Code(s): J18.9 - PNEUMONIA, UNSPECIFIED ORGANISM (2) Aspiration pneumonia Code(s): J69.0 - PNEUMONITIS DUE TO INHALATION OF FOOD AND VOMIT (3) Fever Code(s): R50.9 - FEVER, UNSPECIFIED (4) Altered mental status Code(s): R41.82 - ALTERED MENTAL STATUS, UNSPECIFIED Qualifiers: Altered mental status type: unspecified Qualified Code(s): R41.82 - Altered mental status, unspecified (5) Cerebral palsy Code(s): G80.9 - CEREBRAL PALSY, UNSPECIFIED (6) Constipation Code(s): K59.00 - CONSTIPATION, UNSPECIFIED (7) Functional quadriplegia Code(s): R53.2 - FUNCTIONAL QUADRIPLEGIA (8) Mental retardation Code(s): F79 - UNSPECIFIED INTELLECTUAL DISABILITIES (9) Seizures Code(s): R56.9 - UNSPECIFIED CONVULSIONS plan continue abx ng feeding rest as per the team asp precautions
--- NOTE | 2018-06-18 14:29 | PN ---
Progress Note (short form) - Note Progress Note: PULMONARY APPEARS STABLE BREATHING NON LABORED LOW GRADE TEMP TODAY NGT/O2 NASAL PALE/ANICTERIC SCATTERED CONGESTIVE BREATH SOUNDS S1S2 BS+ NO EDEMA LABS/MEDS/NOTES/IMAGES/MICRO REVIEWED (1) Pneumonia Code(s): J18.9 - PNEUMONIA, UNSPECIFIED ORGANISM (2) Aspiration pneumonia Code(s): J69.0 - PNEUMONITIS DUE TO INHALATION OF FOOD AND VOMIT (3) Fever Code(s): R50.9 - FEVER, UNSPECIFIED (4) Altered mental status Code(s): R41.82 - ALTERED MENTAL STATUS, UNSPECIFIED Qualifiers: Altered mental status type: unspecified Qualified Code(s): R41.82 - Altered mental status, unspecified (5) Cerebral palsy Code(s): G80.9 - CEREBRAL PALSY, UNSPECIFIED (6) Constipation Code(s): K59.00 - CONSTIPATION, UNSPECIFIED (7) Functional quadriplegia Code(s): R53.2 - FUNCTIONAL QUADRIPLEGIA (8) Mental retardation Code(s): F79 - UNSPECIFIED INTELLECTUAL DISABILITIES (9) Seizures Code(s): R56.9 - UNSPECIFIED CONVULSIONS Assessment/Plan ABX per ID Aspiration precautions O2 as needed PO when cleared by S&S VTE prophylaxis BD TX Chest PT May benefit from periodic deep nasal suctioning but patient resists Nicola MORALES MD
[2018-06-18] MEDS: VANCOMYCIN 1 GRAM (PRE-DOCKED) 1,000 MG/250 ML BAG IVPB SCH (18:22)
[2018-06-19] MEDS ORDERED: PIPERACILLIN/TAZOBACTAM 3.375 GM VIAL IVPB ONE ×3 (00:43→16:33)
[2018-06-19] MEDS ORDERED: DEXTROSE 5%-WATER - 50 ML IVPB ONE ×3 (00:44→16:33)
[2018-06-19] MEDS: PIPERACILLIN/TAZOB 3.375 GM 3.375 GM in DEXTROSE 5%-WATER - 50 ML IVPB SCH ×3 (02:33→17:18)
[2018-06-19] MEDS: HEPARIN NA (PORCINE) 5,000 UNITS/ML 1ML VIAL SQ SCH ×3 (06:08→22:24)
[2018-06-19] MEDS: LORazepam 2 MG/ML SDV VIAL IVPUSH SCH ×3 (06:08→22:24)
[2018-06-19] MEDS: BACLOFEN 10 MG TABLET (FP) PO SCH ×3 (06:08→22:24)
[2018-06-19] MEDS: ARFORMOTEROL TARTRATE 15 MCG/2 ML VIAL NEB SCH ×2 (07:15→20:44)
--- NOTE | 2018-06-19 07:51 | PN ---
Physical Exam: SUBJECTIVE: Patient seen and examined this AM. She is resting comfortably in bed with no acute agitation. OBJECTIVE: Vital Signs Period Temp Pulse Resp BP Sys/Ascencio Pulse Ox Last 24 Hr 98.4 F-99.0 F 67-102 18-20 117-128/63-84 97-97 GENERAL: Awake,nonverbal, in no acute distress HEAD: Microcephalic, atraumatic. EYES: PERRL, no scleral icterus EARS, NOSE, THROAT: oropharynx clear with less mucus secretions. Moist mucous membranes. NG tube in place and secured. LUNGS: Course breath sounds improving, with some wheezing, poor inspiratory effort HEART: Regular rate and rhythm, normal S1 and S2 without murmur ABDOMEN: Soft, nontender to palpation, normoactive bowel sounds MUSCULOSKELETAL: Severe levoscoliosis EXTREMITIES: Contracted, some dependent edema in b/l UE, IV in place on right forearm without erythema or infiltration SKIN: Warm, dry, no rashes or lesions noted Active Medications Generic Name Dose Route Start Last Admin Trade Name Freq PRN Reason Stop Dose Admin Arformoterol Tartrate 1 amp 06/15/18 20:00 06/18/18 20:45 Brovana (Restricted To Pulmonology/Resp) - NEB 1 amp RBID [facility] Administration Baclofen 10 mg 06/10/18 08:00 06/19/18 06:08 Lioresal - PO 10 mg TID [facility] Administration Bisacodyl 10 mg 06/10/18 14:38 06/17/18 11:35 Dulcolax Suppository - RC 10 mg DAILY PRN Administration CONSTIPATION Calcium Carbonate/Cholecalciferol 1 tab 06/10/18 22:00 06/18/18 21:54 Os-Hitesh 500+D - PO Not Given BID [facility] Chlorhexidine Gluconate 30 ml 06/10/18 22:00 06/18/18 21:16 Peridex - MM Not Given BID [facility] Cholecalciferol 400 unit 06/11/18 10:00 06/18/18 10:26 Vitamin D3 - PO 400 unit DAILY [facility] Administration Heparin Sodium (Porcine) 5,000 unit 06/10/18 22:00 06/19/18 06:08 Heparin - SQ 5,000 unit TID [facility] Administration Piperacillin Sod/Tazobactam 50 mls @ 100 mls/hr 06/10/18 18:00 06/19/18 02:33 Sod 3.375 gm/ Dextrose IVPB 100 mls/hr Q8H-IV [facility] Administration Protocol Vancomycin HCl 1,000 mg in 250 mls @ 200 mls/hr 06/16/18 16:00 06/18/18 18:22 Vancomycin (Pre-Docked) IVPB 200 mls/hr Q24H [facility] Administration Protocol Levetiracetam 500 mg 06/10/18 22:00 06/18/18 21:36 Keppra Injection - IVPB 500 mg BID [facility] Administration Loratadine 10 mg 06/10/18 14:45 06/17/18 11:44 Claritin - PO Not Given DAILY [facility] Lorazepam 2 mg 06/12/18 15:30 06/19/18 06:08 Ativan Injection - IVPUSH 2 mg TID [facility] Administration Pantoprazole Sodium 20 mg 06/10/18 14:45 06/18/18 10:26 Protonix - PO 20 mg DAILY [facility] Administration Psyllium Hydrophilic Mucilloid 5.85 gm 06/10/18 14:45 06/18/18 10:25 Metamucil (Sugar-Free) - PO Not Given DAILY [facility] Ranitidine HCl 150 mg 06/10/18 22:00 06/18/18 21:55 Zantac - PO Not Given BID [facility] Senna 2 tab 06/11/18 10:00 06/18/18 10:26 Senna - PO 2 tab DAILY [facility] Administration ASSESSMENT/PLAN: 52 yo Female with PMH Cerebral Palsy with spastic quadriplegia, Mental Retardation, Epilepsy, Scoliosis presented from [facility] for vomiting followed by high fevers and cough. Sepsis secondary to Aspiration pneumonia vs pneumonitis -Febrile 103.5 on admission, Tachycardic, tachypnic -Fevers improving -CXR: No gross evidence of infiltration -Chest CT: RUL congestion suspicious for pneumonia vs pneumonitis -ID consult appreciated Zosyn 3.375 gm Q8 IV, Vancomycin 1 gm IV Daily -Ventolin NEBs QID -Pulmonology consult appreciated -NPO, NG Tube with jevity feeds as below, MBS on Wednesday -Still requiring O2 positionally, will attempt to wean off Abdominal Distension -Noted after starting feeds, jevity temoporarily held -KUB Flat plate - bowel distension concerning for ileus, no obstruction or fecal impaction noted -Resume feeds at 20 cc/hr with no titration instructions for now -NG tube residual checks Qshift, hold if > 150 cc Epilepsy -Keppra 500 mg PO BID switched to IV until tolerates PO -Ativan 2 gm TID [facility] Spasticity -Pt on Baclofen 10 mg TID -Unable to give for now due to strict NPO -Will monitor carefully for increased spasticity and start baclofen as soon as pt tolerates PO -Discussed with pharmacy, no possible replacement without NG tube which pt will likely not tolerate -Ativan 2 gm TID DVT Prophylaxis -Heparin 5000 units SQ TID [facility]EN -Fluids: none -Electrolytes: No electrolyte abnormalities, BMP in AM -Nutrition: NPO per speech and swallow, NG tube, Jevity 1.5 @ 20 cc/hr Disposition Med/Surg Visit type - Emergency Visit Emergency Visit: Yes ED Registration Date: 06/09/18 Care time: The patient presented to the Emergency Department on the above date and was hospitalized for further evaluation of their emergent condition. - New Patient This patient is new to me today: No - Critical Care Critical Care patient: No
[2018-06-19] MEDS: CALCIUM 500MG/VIT-D 200 UNITS COMBO TABLET (FP) PO SCH ×2 (09:07→22:24)
[2018-06-19] MEDS: RANITIDINE HCL 150 MG TABLET (FP) PO SCH ×2 (09:07→22:24)
[2018-06-19] MEDS: CHOLECALCIFEROL (VITAMIN D3) 400 UNIT TABLET (FP) PO SCH (09:07)
[2018-06-19] MEDS: levETIRAcetam 500 MG/5 ML INJECTION VIAL IVPB SCH ×2 (09:07→22:24)
[2018-06-19] MEDS: SENNOSIDES 8.6MG TABLET (FP) PO SCH (09:07)
[2018-06-19] MEDS: LORATADINE 10 MG TABLET PO SCH (09:07)
[2018-06-19] MEDS: PANTOPRAZOLE 20 MG TABLET (FP) PO SCH (09:07)
[2018-06-19] MEDS: PSYLLIUM 5.85 GM PACKET PO SCH (09:07)
[2018-06-19] MEDS: CHLORHEXIDINE GLUCONATE 0.12% 15ML CUP MM SCH ×2 (10:12→22:25)
--- NOTE | 2018-06-19 10:56 | PN ---
Progress Note (short form) - Note Progress Note: PULMONARY SLEEPING/AIDE NOT PRESENT LOW GRADE TEMP/TACHY NGT/O2 NASAL PALE/ANICTERIC SCATTERED CONGESTIVE BREATH SOUNDS S1S2 BS+ NO EDEMA LABS/MEDS/NOTES/IMAGES/MICRO REVIEWED (1) Pneumonia Code(s): J18.9 - PNEUMONIA, UNSPECIFIED ORGANISM (2) Aspiration pneumonia Code(s): J69.0 - PNEUMONITIS DUE TO INHALATION OF FOOD AND VOMIT (3) Fever Code(s): R50.9 - FEVER, UNSPECIFIED (4) Altered mental status Code(s): R41.82 - ALTERED MENTAL STATUS, UNSPECIFIED Qualifiers: Altered mental status type: unspecified Qualified Code(s): R41.82 - Altered mental status, unspecified (5) Cerebral palsy Code(s): G80.9 - CEREBRAL PALSY, UNSPECIFIED (6) Constipation Code(s): K59.00 - CONSTIPATION, UNSPECIFIED (7) Functional quadriplegia Code(s): R53.2 - FUNCTIONAL QUADRIPLEGIA (8) Mental retardation Code(s): F79 - UNSPECIFIED INTELLECTUAL DISABILITIES (9) Seizures Code(s): R56.9 - UNSPECIFIED CONVULSIONS Assessment/Plan ABX per ID Aspiration precautions O2 as needed PO when cleared by S&S VTE prophylaxis BD TX Chest PT May benefit from periodic deep nasal suctioning but patient resists Nicola MORALES MD
--- NOTE | 2018-06-19 12:26 | PN ---
Progress Note, Physician History of Present Illness: low grade temp otherwise comfortable on ng tube feeding - Current Medication List Current Medications: Active Medications Arformoterol Tartrate (Brovana (Restricted To Pulmonology/Resp) -) 1 amp NEB RBID [facility] Last Admin: 06/19/18 07:15 Dose: 1 amp Baclofen (Lioresal -) 10 mg PO TID [facility] Last Admin: 06/19/18 06:08 Dose: 10 mg Bisacodyl (Dulcolax Suppository -) 10 mg RC DAILY PRN PRN Reason: CONSTIPATION Last Admin: 06/17/18 11:35 Dose: 10 mg Calcium Carbonate/Cholecalciferol (Os-Hitesh 500+D -) 1 tab PO BID [facility] Last Admin: 06/19/18 09:07 Dose: 1 tab Chlorhexidine Gluconate (Peridex -) 30 ml MM BID [facility] Last Admin: 06/19/18 10:12 Dose: Not Given Cholecalciferol (Vitamin D3 -) 400 unit PO DAILY [facility] Last Admin: 06/19/18 09:07 Dose: 400 unit Heparin Sodium (Porcine) (Heparin -) 5,000 unit SQ TID [facility] Last Admin: 06/19/18 06:08 Dose: 5,000 unit Piperacillin Sod/Tazobactam (Sod 3.375 gm/ Dextrose) 50 mls @ 100 mls/hr IVPB Q8H-IV [facility]; Protocol Last Admin: 06/19/18 10:12 Dose: 100 mls/hr Vancomycin HCl (Vancomycin (Pre-Docked)) 1,000 mg in 250 mls @ 200 mls/hr IVPB Q24H [facility]; Protocol Last Admin: 06/18/18 18:22 Dose: 200 mls/hr Levetiracetam (Keppra Injection -) 500 mg IVPB BID [facility] Last Admin: 06/19/18 09:07 Dose: 500 mg Loratadine (Claritin -) 10 mg PO DAILY [facility] Last Admin: 06/19/18 09:07 Dose: 10 mg Lorazepam (Ativan Injection -) 2 mg IVPUSH TID [facility] Last Admin: 06/19/18 06:08 Dose: 2 mg Pantoprazole Sodium (Protonix -) 20 mg PO DAILY [facility] Last Admin: 06/19/18 09:07 Dose: 20 mg Psyllium Hydrophilic Mucilloid (Metamucil (Sugar-Free) -) 5.85 gm PO DAILY [facility] Last Admin: 06/19/18 09:07 Dose: 5.85 gm Ranitidine HCl (Zantac -) 150 mg PO BID [facility] Last Admin: 06/19/18 09:07 Dose: 150 mg Senna (Senna -) 2 tab PO DAILY [facility] Last Admin: 06/19/18 09:07 Dose: 2 tab - Objective Vital Signs: Vital Signs Temperature 99.0 F 06/19/18 05:29 Pulse Rate 102 H 06/19/18 05:29 Respiratory Rate 20 06/19/18 05:29 Blood Pressure 117/78 06/19/18 05:29 O2 Sat by Pulse Oximetry (%) 97 06/18/18 20:48 Constitutional: Yes: No Distress, Calm Cardiovascular: Yes: Regular Rate and Rhythm Respiratory: Yes: Poor Air Entry, Rhonchi Gastrointestinal: Yes: Normal Bowel Sounds, Soft Musculoskeletal: Yes: Other Extremities: Yes: Other Neurological: Yes: Alert Labs: CBC, BMP 06/17/18 07:46 06/16/18 06:30 INR, PTT INR 1.14 (0.83-1.09) H 06/10/18 06:00 Assessment/Plan Problem List - Problems (1) Pneumonia Code(s): J18.9 - PNEUMONIA, UNSPECIFIED ORGANISM (2) Aspiration pneumonia Code(s): J69.0 - PNEUMONITIS DUE TO INHALATION OF FOOD AND VOMIT (3) Fever Code(s): R50.9 - FEVER, UNSPECIFIED (4) Altered mental status Code(s): R41.82 - ALTERED MENTAL STATUS, UNSPECIFIED Qualifiers: Altered mental status type: unspecified Qualified Code(s): R41.82 - Altered mental status, unspecified (5) Cerebral palsy Code(s): G80.9 - CEREBRAL PALSY, UNSPECIFIED (6) Constipation Code(s): K59.00 - CONSTIPATION, UNSPECIFIED (7) Functional quadriplegia Code(s): R53.2 - FUNCTIONAL QUADRIPLEGIA (8) Mental retardation Code(s): F79 - UNSPECIFIED INTELLECTUAL DISABILITIES (9) Seizures Code(s): R56.9 - UNSPECIFIED CONVULSIONS plan continue abx ng feeding rest as per the team asp precautions pul on case
--- NOTE | 2018-06-19 14:59 | PN ---
Teaching Attending Note Name of Resident: Pedro Morejon ATTENDING PHYSICIAN STATEMENT I saw and evaluated the patient. I reviewed the resident's note and discussed the case with the resident. I agree with the resident's findings and plan as documented. SUBJECTIVE:resting comfortable OBJECTIVE: Last Vital Signs Temp Pulse Resp BP Pulse Ox 99.0 F 113 H 20 138/76 97 06/19/18 05:29 06/19/18 14:00 06/19/18 14:00 06/19/18 14:00 06/18/18 20:48 General NAD Lungs course breath sounds anteriorly Abdomen soft slightly distended. 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 Sepsis due to RUL PNA- likely aspiration. afebrile. no leukcoytosis. On vanco day 4 and zosyn day 10. tolerating TF. aspiration precautions. plan for MBS on Wednesday. 2. Abdominal distention-AXR showing ileus. tolerating TF with low residuals. BM last night. will cont to monitor. 3. Acute hypoxic respiratory distress- due to PNA. improved.d/c steroids. titrate down supplemental oxygen as tolerated. spO2 >90%. nebs/ chest PT. pulm on board 4. Lactic acidosis, resolved 5. Cerebral palsy 6. Seizure disorder- no seizure like motion noted. cont anti-eleptics. 7. Mental retardation 8. Scoliosis 9. DVT ppx- lovenox
[2018-06-19] MEDS: VANCOMYCIN 1 GRAM (PRE-DOCKED) 1,000 MG/250 ML BAG IVPB SCH (16:35)
[2018-06-20] MEDS ORDERED: DEXTROSE 5%-WATER - 50 ML IVPB ONE ×2 (02:15→10:10)
[2018-06-20] MEDS ORDERED: PIPERACILLIN/TAZOBACTAM 3.375 GM VIAL IVPB ONE ×3 (02:15→18:55)
[2018-06-20] MEDS: PIPERACILLIN/TAZOB 3.375 GM 3.375 GM in DEXTROSE 5%-WATER - 50 ML IVPB SCH ×3 (02:36→19:33)
[2018-06-20] MEDS ORDERED: ACETAMINOPHEN 650 MG SUPP.RECT PR ONE (05:53)
[2018-06-20] MEDS: LORazepam 2 MG/ML SDV VIAL IVPUSH SCH ×2 (06:02→14:36)
[2018-06-20] MEDS: HEPARIN NA (PORCINE) 5,000 UNITS/ML 1ML VIAL SQ SCH ×3 (06:02→22:18)
[2018-06-20] MEDS: BACLOFEN 10 MG TABLET (FP) PO SCH ×3 (06:02→22:12)
[2018-06-20] MEDS: ARFORMOTEROL TARTRATE 15 MCG/2 ML VIAL NEB SCH ×2 (07:20→20:53)
--- NOTE | 2018-06-20 09:33 | PN ---
Physical Exam: SUBJECTIVE: Patient seen and examined this AM. No events noted overnight. Pt resting comfortably and smiling in bed. OBJECTIVE: Vital Signs Period Temp Pulse Resp BP Sys/Ascencio Pulse Ox Last 24 Hr 100.4 F-100.9 F 50-113 18-20 90-138/50-97 97 GENERAL: Awake,nonverbal, in no acute distress HEAD: Microcephalic, atraumatic. EYES: PERRL, no scleral icterus EARS, NOSE, THROAT: oropharynx clear with less mucus secretions. Moist mucous membranes. NG tube in place and secured. LUNGS: Minimal rhonchi diffusely, expiratory wheezes still noted HEART: Regular rate and rhythm, normal S1 and S2 without murmur ABDOMEN: Soft, nontender to palpation, normoactive bowel sounds MUSCULOSKELETAL: Severe levoscoliosis EXTREMITIES: Contracted, some dependent edema in b/l UE, IV in place on right forearm without erythema or infiltration SKIN: Warm, dry, no rashes or lesions noted Active Medications Generic Name Dose Route Start Last Admin Trade Name Freq PRN Reason Stop Dose Admin Arformoterol Tartrate 1 amp 06/15/18 20:00 06/20/18 07:20 Brovana (Restricted To Pulmonology/Resp) - NEB 1 amp RBID [facility] Administration Baclofen 10 mg 06/10/18 08:00 06/20/18 06:02 Lioresal - PO 10 mg TID [facility] Administration Bisacodyl 10 mg 06/10/18 14:38 06/17/18 11:35 Dulcolax Suppository - RC 10 mg DAILY PRN Administration CONSTIPATION Calcium Carbonate/Cholecalciferol 1 tab 06/10/18 22:00 06/19/18 22:24 Os-Hitesh 500+D - PO 1 tab BID [facility] Administration Chlorhexidine Gluconate 30 ml 06/10/18 22:00 06/19/18 22:25 Peridex - MM Not Given BID [facility] Cholecalciferol 400 unit 06/11/18 10:00 06/19/18 09:07 Vitamin D3 - PO 400 unit DAILY [facility] Administration Heparin Sodium (Porcine) 5,000 unit 06/10/18 22:00 06/20/18 06:02 Heparin - SQ 5,000 unit TID [facility] Administration Piperacillin Sod/Tazobactam 50 mls @ 100 mls/hr 06/10/18 18:00 06/20/18 02:36 Sod 3.375 gm/ Dextrose IVPB 100 mls/hr Q8H-IV [facility] Administration Protocol Vancomycin HCl 1,000 mg in 250 mls @ 200 mls/hr 06/16/18 16:00 06/19/18 16:35 Vancomycin (Pre-Docked) IVPB 200 mls/hr Q24H [facility] Administration Protocol Levetiracetam 500 mg 06/10/18 22:00 06/19/18 22:24 Keppra Injection - IVPB 500 mg BID [facility] Administration Loratadine 10 mg 06/10/18 14:45 06/19/18 09:07 Claritin - PO 10 mg DAILY [facility] Administration Lorazepam 2 mg 06/12/18 15:30 06/20/18 06:02 Ativan Injection - IVPUSH 2 mg TID [facility] Administration Pantoprazole Sodium 20 mg 06/10/18 14:45 06/19/18 09:07 Protonix - PO 20 mg DAILY [facility] Administration Psyllium Hydrophilic Mucilloid 5.85 gm 06/10/18 14:45 06/19/18 09:07 Metamucil (Sugar-Free) - PO 5.85 gm DAILY [facility] Administration Ranitidine HCl 150 mg 06/10/18 22:00 06/19/18 22:24 Zantac - PO 150 mg BID [facility] Administration Senna 2 tab 06/11/18 10:00 06/19/18 09:07 Senna - PO 2 tab DAILY [facility] Administration ASSESSMENT/PLAN: 52 yo Female with PMH Cerebral Palsy with spastic quadriplegia, Mental Retardation, Epilepsy, Scoliosis presented from [facility] for vomiting followed by high fevers and cough. Sepsis secondary to Aspiration pneumonia vs pneumonitis -Febrile 103.5 on admission, Tachycardic, tachypnic -Fevers improving -Chest CT: RUL congestion suspicious for pneumonia vs pneumonitis -ID consult appreciated Zosyn 3.375 gm Q8 IV, Vancomycin 1 gm IV Daily -Ventolin NEBs QID -Pulmonology consult appreciated -Continued fevers, vomiting today, hold tube feeds and begin clinimix -Repeat blood/urine cultures with continued fevers, CXR unchanged -Modified barium swallow noted for possible silent aspiration, recommendation to consider PEG even if just for temporary feeding -Discuss possibility of need for PEG with Family/Proxy -Still requiring O2 positionally, will attempt to wean off Abdominal Distension - improved -KUB Flat plate - bowel distension concerning for ileus, no obstruction or fecal impaction noted -Feeds held with vomiting and concern for continued aspiration Epilepsy -Keppra 500 mg PO BID switched to IV until tolerates PO -Restart on home valium 15 mg PO BID via NG tube Spasticity -Pt on Baclofen 10 mg TID given via NG tube -Ativan 2 gm TID DVT Prophylaxis -Heparin 5000 units SQ TID FEN -Fluids: Clinimix @ 42 cc/hr -Electrolytes: No electrolyte abnormalities, BMP in AM -Nutrition: NPO, hold tube feeds, begin Clinimix Disposition Med/Surg Visit type - Emergency Visit Emergency Visit: Yes ED Registration Date: 06/09/18 Care time: The patient presented to the Emergency Department on the above date and was hospitalized for further evaluation of their emergent condition. - New Patient This patient is new to me today: No - Critical Care Critical Care patient: No
[2018-06-20] MEDS: CHLORHEXIDINE GLUCONATE 0.12% 15ML CUP MM SCH ×2 (10:53→22:12)
--- NOTE | 2018-06-20 10:55 | PN ---
Progress Note (short form) - Note Progress Note: PULMONARY Febrile this AM. Awake on enteral feeds. Vital Signs Period Temp Pulse Resp BP Sys/Ascencio Pulse Ox Last 24 Hr 100.9 F-101.2 F 96-113 20-20 96-138/52-76 97 Gen: awake Heart: RRR Lung: scattered rhonchi Abd: soft, nontender Ext: no edema CBC, BMP 06/17/18 07:46 06/16/18 06:30 Active Medications Arformoterol Tartrate (Brovana (Restricted To Pulmonology/Resp) -) 1 amp NEB RBID [facility] Last Admin: 06/20/18 07:20 Dose: 1 amp Baclofen (Lioresal -) 10 mg PO TID [facility] Last Admin: 06/20/18 06:02 Dose: 10 mg Bisacodyl (Dulcolax Suppository -) 10 mg RC DAILY PRN PRN Reason: CONSTIPATION Last Admin: 06/17/18 11:35 Dose: 10 mg Calcium Carbonate/Cholecalciferol (Os-Hitesh 500+D -) 1 tab PO BID [facility] Last Admin: 06/19/18 22:24 Dose: 1 tab Chlorhexidine Gluconate (Peridex -) 30 ml MM BID [facility] Last Admin: 06/20/18 10:53 Dose: Not Given Cholecalciferol (Vitamin D3 -) 400 unit PO DAILY [facility] Last Admin: 06/19/18 09:07 Dose: 400 unit Heparin Sodium (Porcine) (Heparin -) 5,000 unit SQ TID [facility] Last Admin: 06/20/18 06:02 Dose: 5,000 unit Piperacillin Sod/Tazobactam (Sod 3.375 gm/ Dextrose) 50 mls @ 100 mls/hr IVPB Q8H-IV [facility]; Protocol Last Admin: 06/20/18 02:36 Dose: 100 mls/hr Vancomycin HCl (Vancomycin (Pre-Docked)) 1,000 mg in 250 mls @ 200 mls/hr IVPB Q24H [facility]; Protocol Last Admin: 06/19/18 16:35 Dose: 200 mls/hr Levetiracetam (Keppra Injection -) 500 mg IVPB BID [facility] Last Admin: 06/19/18 22:24 Dose: 500 mg Loratadine (Claritin -) 10 mg PO DAILY [facility] Last Admin: 06/19/18 09:07 Dose: 10 mg Lorazepam (Ativan Injection -) 2 mg IVPUSH TID [facility] Last Admin: 06/20/18 06:02 Dose: 2 mg Pantoprazole Sodium (Protonix -) 20 mg PO DAILY [facility] Last Admin: 06/19/18 09:07 Dose: 20 mg Psyllium Hydrophilic Mucilloid (Metamucil (Sugar-Free) -) 5.85 gm PO DAILY [facility] Last Admin: 06/19/18 09:07 Dose: 5.85 gm Ranitidine HCl (Zantac -) 150 mg PO BID [facility] Last Admin: 06/19/18 22:24 Dose: 150 mg Senna (Senna -) 2 tab PO DAILY [facility] Last Admin: 06/19/18 09:07 Dose: 2 tab A/P Pneumonia likely Aspiration Sepsis Seizure Disorder Cerebral Palsy Mental Retardation - continue antibiotics - reculture if febrile - repeat CXR - aspiration precautions - DVT prophylaxis
[2018-06-20] MEDS: levETIRAcetam 500 MG/5 ML INJECTION VIAL IVPB SCH ×2 (10:58→22:19)
[2018-06-20] MEDS: SENNOSIDES 8.6MG TABLET (FP) PO SCH (10:59)
[2018-06-20] MEDS: CALCIUM 500MG/VIT-D 200 UNITS COMBO TABLET (FP) PO SCH ×2 (10:59→22:12)
[2018-06-20] MEDS: LORATADINE 10 MG TABLET PO SCH (11:00)
[2018-06-20] MEDS: PANTOPRAZOLE 20 MG TABLET (FP) PO SCH (11:00)
[2018-06-20] MEDS: RANITIDINE HCL 150 MG TABLET (FP) PO SCH ×2 (11:00→22:12)
[2018-06-20] MEDS: CHOLECALCIFEROL (VITAMIN D3) 400 UNIT TABLET (FP) PO SCH (11:00)
[2018-06-20] MEDS: PSYLLIUM 5.85 GM PACKET PO SCH ×2 (11:00→11:33)
--- NOTE | 2018-06-20 14:52 | PN ---
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 - Current Medication List Current Medications: Active Medications Arformoterol Tartrate (Brovana (Restricted To Pulmonology/Resp) -) 1 amp NEB RBID [facility] Last Admin: 06/20/18 07:20 Dose: 1 amp Baclofen (Lioresal -) 10 mg PO TID [facility] Last Admin: 06/20/18 14:33 Dose: Not Given Bisacodyl (Dulcolax Suppository -) 10 mg RC DAILY PRN PRN Reason: CONSTIPATION Last Admin: 06/17/18 11:35 Dose: 10 mg Calcium Carbonate/Cholecalciferol (Os-Hitesh 500+D -) 1 tab PO BID [facility] Last Admin: 06/20/18 10:59 Dose: 1 tab Chlorhexidine Gluconate (Peridex -) 30 ml MM BID [facility] Last Admin: 06/20/18 10:53 Dose: Not Given Cholecalciferol (Vitamin D3 -) 400 unit PO DAILY [facility] Last Admin: 06/20/18 11:00 Dose: 400 unit Heparin Sodium (Porcine) (Heparin -) 5,000 unit SQ TID [facility] Last Admin: 06/20/18 14:36 Dose: 5,000 unit Piperacillin Sod/Tazobactam (Sod 3.375 gm/ Dextrose) 50 mls @ 100 mls/hr IVPB Q8H-IV [facility]; Protocol Last Admin: 06/20/18 10:58 Dose: 100 mls/hr Vancomycin HCl (Vancomycin (Pre-Docked)) 1,000 mg in 250 mls @ 200 mls/hr IVPB Q24H [facility]; Protocol Last Admin: 06/19/18 16:35 Dose: 200 mls/hr Levetiracetam (Keppra Injection -) 500 mg IVPB BID [facility] Last Admin: 06/20/18 10:58 Dose: 500 mg Loratadine (Claritin -) 10 mg PO DAILY [facility] Last Admin: 06/20/18 11:00 Dose: 10 mg Lorazepam (Ativan Injection -) 2 mg IVPUSH TID [facility] Last Admin: 06/20/18 14:36 Dose: 2 mg Pantoprazole Sodium (Protonix -) 20 mg PO DAILY [facility] Last Admin: 06/20/18 11:00 Dose: 20 mg Psyllium Hydrophilic Mucilloid (Metamucil (Sugar-Free) -) 5.85 gm PO DAILY [facility] Last Admin: 06/20/18 11:33 Dose: Not Given Ranitidine HCl (Zantac -) 150 mg PO BID [facility] Last Admin: 06/20/18 11:00 Dose: 150 mg Senna (Senna -) 2 tab PO DAILY [facility] Last Admin: 06/20/18 10:59 Dose: 2 tab - Objective Vital Signs: Vital Signs Temperature 101.2 F H 06/20/18 09:51 Pulse Rate 96 H 06/20/18 09:51 Respiratory Rate 20 06/20/18 09:51 Blood Pressure 96/53 L 06/20/18 09:51 O2 Sat by Pulse Oximetry (%) 97 06/19/18 21:00 Constitutional: Yes: No Distress HENT: Yes: Atraumatic Neck: Yes: Supple Cardiovascular: Yes: Regular Rate and Rhythm, Tachycardia Respiratory: Yes: Poor Air Entry, Rhonchi Gastrointestinal: Yes: Normal Bowel Sounds, Soft Extremities: Yes: Other (contracted) Neurological: Yes: Alert Psychiatric: Yes: Other Labs: CBC, BMP 06/17/18 07:46 06/16/18 06:30 INR, PTT INR 1.14 (0.83-1.09) H 06/10/18 06:00 Assessment/Plan Problem List - Problems (1) Pneumonia Code(s): J18.9 - PNEUMONIA, UNSPECIFIED ORGANISM (2) Aspiration pneumonia Code(s): J69.0 - PNEUMONITIS DUE TO INHALATION OF FOOD AND VOMIT (3) Fever Code(s): R50.9 - FEVER, UNSPECIFIED (4) Altered mental status Code(s): R41.82 - ALTERED MENTAL STATUS, UNSPECIFIED Qualifiers: Altered mental status type: unspecified Qualified Code(s): R41.82 - Altered mental status, unspecified (5) Cerebral palsy Code(s): G80.9 - CEREBRAL PALSY, UNSPECIFIED (6) Constipation Code(s): K59.00 - CONSTIPATION, UNSPECIFIED (7) Functional quadriplegia Code(s): R53.2 - FUNCTIONAL QUADRIPLEGIA (8) Mental retardation Code(s): F79 - UNSPECIFIED INTELLECTUAL DISABILITIES (9) Seizures Code(s): R56.9 - UNSPECIFIED CONVULSIONS patient continues to have repeats fevers inspite being on abx plan continue to monitor all cx have been negative so far continue abx for now g tube being considered aspiration precautions
[2018-06-20] MEDS ORDERED: ACETAMINOPHEN 325 MG SUPP.RECT PR PRN (16:14)
--- NOTE | 2018-06-20 17:25 | PN ---
Teaching Attending Note Name of Resident: Pedro Morejon ATTENDING PHYSICIAN STATEMENT I saw and evaluated the patient. I reviewed the resident's note and discussed the case with the resident. I agree with the resident's findings and plan as documented. SUBJECTIVE:resting comfortable OBJECTIVE: Last Vital Signs Temp Pulse Resp BP Pulse Ox 99.9 F H 109 H 20 127/79 97 06/20/18 13:00 06/20/18 13:00 06/20/18 13:00 06/20/18 13:00 06/19/18 21:00 General NAD, tracking Lungs course breath sounds anteriorly Abdomen soft slightly distended. 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 Sepsis due to RUL PNA- Tm 100.9. concern pt is silently aspirating. hold TF at this time. Plan for MBS today. she is alert and if she is unable to swallow will need to consider PEG. if faily MBS will start clinimix and strict NPO. On vanco day 5 and zosyn day 11. check vanco level today. aspiration precautions. 2. Abdominal distention-AXR showing ileus. abdomen soft with regular BM 3. Acute hypoxic respiratory distress- due to PNA. titrate down supplemental oxygen as tolerated. spO2 >90%. nebs/ chest PT. pulm on board 4. Lactic acidosis, resolved 5. Cerebral palsy 6. Seizure disorder- no seizure like motion noted. cont anti-eleptics. 7. Mental retardation 8. Scoliosis 9. DVT ppx- lovenox
[2018-06-20 17:58] LABS: URINE APPEARANCE CLEAR; URINE BILIRUBIN NEGATIVE (<2.0 mg/dL); URINE COLOR YELLOW; URINE GLUCOSE (UA) NEGATIVE (NEGATIVE); URINE KETONE NEGATIVE (NEGATIVE); URINE LEUK ESTERASE NEGATIVE (NEGATIVE); URINE NITRITE NEGATIVE (NEGATIVE); URINE PROTEIN NEGATIVE (NEGATIVE); URINE UROBILINOGEN NEGATIVE mg/dL (0.2-1.0)
[2018-06-20] MEDS: VANCOMYCIN 1 GRAM (PRE-DOCKED) 1,000 MG/250 ML BAG IVPB SCH (19:53)
[2018-06-20] MEDS ORDERED: LORazepam 2 MG/ML SDV VIAL IVPUSH ONE (22:00)
[2018-06-21] MEDS: AMINO ACIDS 4.25%/D5W 1,000 ML IV SCH ×3 (00:30→18:28)
[2018-06-21] MEDS ORDERED: DEXTROSE 5%-WATER - 50 ML IVPB ONE ×3 (01:11→17:14)
[2018-06-21] MEDS ORDERED: PIPERACILLIN/TAZOBACTAM 3.375 GM VIAL IVPB ONE ×3 (01:11→17:14)
[2018-06-21] MEDS: PIPERACILLIN/TAZOB 3.375 GM 3.375 GM in DEXTROSE 5%-WATER - 50 ML IVPB SCH ×3 (01:42→21:17)
[2018-06-21] MEDS: BACLOFEN 10 MG TABLET (FP) PO SCH ×3 (06:37→21:23)
[2018-06-21] MEDS: HEPARIN NA (PORCINE) 5,000 UNITS/ML 1ML VIAL SQ SCH ×3 (06:38→22:13)
[2018-06-21 07:18] LABS: BASO % 0.3 % (0-2.0); EOS % 2.8 % (0-4.5); HEMOGLOBIN 10.3 GM/dL (10.7-15.3); LYMPH % 5.6 % (8-40); MCH 34.5 pg (25.7-33.7); MCHC 34.4 g/dl (32.0-36.0); MEAN CELL VOLUME 100.1 fl (80-96); MEAN PLT VOLUME 7.2 fl (7.5-11.1); MONO % 4.1 % (3.8-10.2); NEUT % 87.2 % (42.8-82.8); PLATELET COUNT 333 K/MM3 (134-434); RBC 2.99 M/mm3 (3.60-5.2); RDW 14.4 % (11.6-15.6); WHITE BLOOD COUNT 10.1 K/mm3 (4.0-10.0)
[2018-06-21] MEDS: ARFORMOTEROL TARTRATE 15 MCG/2 ML VIAL NEB SCH (07:27)
[2018-06-21 07:40] LABS: ANION GAP 6 MMOL/L (8-16); BLOOD UREA NITROGEN 10 mg/dL (7-18); CALCIUM 8.1 mg/dL (8.5-10.1); CHLORIDE 101 mmol/L (98-107); CO2 30 mmol/L (21-32); CREATININE 0.4 mg/dL (0.55-1.3); GLUCOSE,RANDOM 97 mg/dL (74-106); MAGNESIUM 2.1 mg/dL (1.8-2.4); PHOSPHOROUS 2.2 mg/dL (2.5-4.9); SODIUM 137 mmol/L (136-145)
[2018-06-21] MEDS ORDERED: LORazepam 2 MG/ML SDV VIAL IVPUSH PRN (08:57)
[2018-06-21] MEDS: ACETAMINOPHEN 325 MG SUPP.RECT PR PRN ×3 (09:20→22:22)
[2018-06-21] MEDS ORDERED: diazePAM 5 MG TABLET PO SCH (10:00)
[2018-06-21] MEDS: levETIRAcetam 500 MG/5 ML INJECTION VIAL IVPB SCH ×2 (10:36→22:09)
--- NOTE | 2018-06-21 10:50 | PN ---
Progress Note (short form) - Note Progress Note: PULMONARY Remains febrile this AM. More tachypneic today. MBS could not rule out aspiration, enteral feeds stopped and started on PPN. Vital Signs Period Temp Pulse Resp BP Sys/Ascencio Pulse Ox Last 24 Hr 99.3 F-101.5 F 54-122 18-20 59-150/36-82 97 Gen: mildly tachypneic at rest Heart: RRR Lung: scattered rhonchi Abd: soft, nontender Ext: no edema CBC, BMP 06/21/18 06:45 06/21/18 06:45 Active Medications Acetaminophen (Tylenol Suppository -) 650 mg [place] Q6H PRN PRN Reason: FEVER Last Admin: 06/21/18 09:20 Dose: 650 mg Arformoterol Tartrate (Brovana (Restricted To Pulmonology/Resp) -) 1 amp NEB RBID [facility] Last Admin: 06/21/18 07:27 Dose: 1 amp Baclofen (Lioresal -) 10 mg PO TID [facility] Last Admin: 06/21/18 06:37 Dose: Not Given Bisacodyl (Dulcolax Suppository -) 10 mg RC DAILY PRN PRN Reason: CONSTIPATION Last Admin: 06/17/18 11:35 Dose: 10 mg Calcium Carbonate/Cholecalciferol (Os-Hitesh 500+D -) 1 tab PO BID [facility] Last Admin: 06/20/18 22:12 Dose: Not Given Chlorhexidine Gluconate (Peridex -) 30 ml MM BID [facility] Last Admin: 06/20/18 22:12 Dose: Not Given Cholecalciferol (Vitamin D3 -) 400 unit PO DAILY [facility] Last Admin: 06/20/18 11:00 Dose: 400 unit Heparin Sodium (Porcine) (Heparin -) 5,000 unit SQ TID [facility] Last Admin: 06/21/18 06:38 Dose: 5,000 unit Piperacillin Sod/Tazobactam (Sod 3.375 gm/ Dextrose) 50 mls @ 100 mls/hr IVPB Q8H-IV [facility]; Protocol Last Admin: 06/21/18 10:36 Dose: 100 mls/hr Vancomycin HCl (Vancomycin (Pre-Docked)) 1,000 mg in 250 mls @ 200 mls/hr IVPB Q24H [facility]; Protocol Last Admin: 06/20/18 19:53 Dose: 200 mls/hr Amino Acids (Clinimix -) 1,000 mls @ 42 mls/hr IV Q12H [facility] Last Admin: 06/21/18 04:00 Dose: Not Given Levetiracetam (Keppra Injection -) 500 mg IVPB BID [facility] Last Admin: 06/21/18 10:36 Dose: 500 mg Loratadine (Claritin -) 10 mg PO DAILY [facility] Last Admin: 06/20/18 11:00 Dose: 10 mg Lorazepam (Ativan Injection -) 2 mg IVPUSH TID PRN PRN Reason: ANXIETY Pantoprazole Sodium (Protonix -) 20 mg PO DAILY [facility] Last Admin: 06/20/18 11:00 Dose: 20 mg Psyllium Hydrophilic Mucilloid (Metamucil (Sugar-Free) -) 5.85 gm PO DAILY [facility] Last Admin: 06/20/18 11:33 Dose: Not Given Ranitidine HCl (Zantac -) 150 mg PO BID [facility] Last Admin: 06/20/18 22:12 Dose: Not Given Senna (Senna -) 2 tab PO DAILY [facility] Last Admin: 06/20/18 10:59 Dose: 2 tab A/P Pneumonia likely Aspiration Sepsis Seizure Disorder Cerebral Palsy Mental Retardation - continue antibiotics - f/u repeat cultures - aspiration precautions - continue PPN - may need PEG placement - DVT prophylaxis
--- NOTE | 2018-06-21 11:13 | PN ---
Physical Exam: SUBJECTIVE: Patient seen and examined this AM. She is resting comfortably in bed. No overnight events noted. OBJECTIVE: Vital Signs Period Temp Pulse Resp BP Sys/Ascencio Pulse Ox Last 24 Hr 99.3 F-101.5 F 54-122 18-20 59-150/36-82 97 GENERAL: Awake,nonverbal, in no acute distress HEAD: Microcephalic, atraumatic. EYES: PERRL, no scleral icterus EARS, NOSE, THROAT: oropharynx clear with less mucus secretions. Moist mucous membranes. NG tube in place and secured. LUNGS: Minimal rhonchi diffusely, expiratory wheezes still noted HEART: Regular rate and rhythm, normal S1 and S2 without murmur ABDOMEN: Soft, nontender to palpation, normoactive bowel sounds MUSCULOSKELETAL: Severe levoscoliosis EXTREMITIES: Contracted, some dependent edema in b/l UE, IV in place on right forearm without erythema or infiltration SKIN: Warm, dry, no rashes or lesions noted Laboratory Results - last 24 hr 06/20/18 06/20/18 06/21/18 16:00 17:00 06:45 WBC 10.1 H RBC 2.99 L Hgb 10.3 L Hct 30.0 L MCV 100.1 H MCH 34.5 H D MCHC 34.4 RDW 14.4 Plt Count 333 MPV 7.2 L Absolute Neuts (auto) 8.8 H Neutrophils % 87.2 H Lymphocytes % 5.6 L D Monocytes % 4.1 Eosinophils % 2.8 D Basophils % 0.3 Nucleated RBC % 0 Sodium Potassium Chloride Carbon Dioxide Anion Gap BUN Creatinine Creat Clearance w eGFR Random Glucose Calcium Phosphorus Magnesium Urine Color Yellow Urine Appearance Clear Urine pH 7.0 D Ur Specific [place] 1.020 Urine Protein Negative Urine Glucose (UA) Negative Urine Ketones Negative Urine Blood Negative Urine Nitrite Negative Urine Bilirubin Negative Urine Urobilinogen Negative Ur Leukocyte Esterase Negative Vancomycin Pre-Dose 6.4 L 06/21/18 06:45 WBC RBC Hgb Hct MCV MCH MCHC RDW Plt Count MPV Absolute Neuts (auto) Neutrophils % Lymphocytes % Monocytes % Eosinophils % Basophils % Nucleated RBC % Sodium 137 Potassium 4.0 Chloride 101 Carbon Dioxide 30 Anion Gap 6 L BUN 10 Creatinine 0.4 L Creat Clearance w eGFR > 60 Random Glucose 97 Calcium 8.1 L Phosphorus 2.2 L Magnesium 2.1 Urine Color Urine Appearance Urine pH Ur Specific Kay[place] Urine Protein Urine Glucose (UA) Urine Ketones Urine Blood Urine Nitrite Urine Bilirubin Urine Urobilinogen Ur Leukocyte Esterase Vancomycin Pre-Dose Active Medications Generic Name Dose Route Start Last Admin Trade Name Kashif PRN Reason Stop Dose Admin Acetaminophen 650 mg 06/21/18 08:58 06/21/18 09:20 Tylenol Suppository - [place] 650 mg Q6H PRN Administration FEVER Albuterol Sulfate 1 amp 06/21/18 11:00 Ventolin 0.083% Nebulizer Soln - NEB Q4H PRN SHORT OF BREATH/WHEEZING Albuterol/Ipratropium 1 amp 06/21/18 12:00 Duoneb - NEB RQID [facility] Baclofen 10 mg 06/10/18 08:00 06/21/18 06:37 Lioresal - PO Not Given TID [facility] Bisacodyl 10 mg 06/10/18 14:38 06/17/18 11:35 Dulcolax Suppository - RC 10 mg DAILY PRN Administration CONSTIPATION Calcium Carbonate/Cholecalciferol 1 tab 06/10/18 22:00 06/20/18 22:12 Os-Hitesh 500+D - PO Not Given BID [facility] Chlorhexidine Gluconate 30 ml 06/10/18 22:00 06/20/18 22:12 Peridex - MM Not Given BID [facility] Cholecalciferol 400 unit 06/11/18 10:00 06/20/18 11:00 Vitamin D3 - PO 400 unit DAILY [facility] Administration Heparin Sodium (Porcine) 5,000 unit 06/10/18 22:00 06/21/18 06:38 Heparin - SQ 5,000 unit TID [facility] Administration Piperacillin Sod/Tazobactam 50 mls @ 100 mls/hr 06/10/18 18:00 06/21/18 10:36 Sod 3.375 gm/ Dextrose IVPB 100 mls/hr Q8H-IV [facility] Administration Protocol Vancomycin HCl 1,000 mg in 250 mls @ 200 mls/hr 06/16/18 16:00 06/20/18 19:53 Vancomycin (Pre-Docked) IVPB 200 mls/hr Q24H [facility] Administration Protocol Amino Acids 1,000 mls @ 42 mls/hr 06/20/18 15:45 06/21/18 04:00 Clinimix - IV Not Given Q12H [facility] Levetiracetam 500 mg 06/10/18 22:00 06/21/18 10:36 Keppra Injection - IVPB 500 mg BID [facility] Administration Loratadine 10 mg 06/10/18 14:45 06/20/18 11:00 Claritin - PO 10 mg DAILY [facility] Administration Lorazepam 2 mg 06/21/18 14:00 Ativan Injection - IVPUSH TID [facility] Pantoprazole Sodium 20 mg 06/10/18 14:45 06/20/18 11:00 Protonix - PO 20 mg DAILY [facility] Administration Psyllium Hydrophilic Mucilloid 5.85 gm 06/10/18 14:45 06/20/18 11:33 Metamucil (Sugar-Free) - PO Not Given DAILY [facility] Ranitidine HCl 150 mg 06/10/18 22:00 06/20/18 22:12 Zantac - PO Not Given BID [facility] Senna 2 tab 06/11/18 10:00 06/20/18 10:59 Senna - PO 2 tab DAILY [facility] Administration ASSESSMENT/PLAN: 52 yo Female with PMH Cerebral Palsy with spastic quadriplegia, Mental Retardation, Epilepsy, Scoliosis presented from [facility] for vomiting followed by high fevers and cough. Sepsis secondary to Aspiration pneumonia vs pneumonitis -Febrile 103.5 on admission, Tachycardic, tachypnic -Fevers improving -Chest CT: RUL congestion suspicious for pneumonia vs pneumonitis -ID consult appreciated Zosyn 3.375 gm Q8 IV, Vancomycin 1 gm IV Daily -Ventolin NEBs QID -Pulmonology consult appreciated -Continued fevers, vomiting today, hold tube feeds and begin clinimix -Repeat blood/urine cultures with continued fevers, CXR unchanged -Modified barium swallow noted for possible silent aspiration, recommendation to consider PEG even if just for temporary feeding -Extensive discussion with Pts sister and mother, Family is amenable to PEG insertion if medically necessary for feeding -Family states that pt does better when sitting up in her wheelchair than when lying in bed -Reevaluate in AM and consider GI consult for PEG insertion -Still requiring O2 positionally, will attempt to wean off Abdominal Distension - improved -KUB Flat plate - bowel distension concerning for ileus, no obstruction or fecal impaction noted -Feeds held with vomiting and concern for continued aspiration Epilepsy -Keppra 500 mg PO BID switched to IV until tolerates PO -Ativan 2gm IV TID Spasticity -Pt on Baclofen 10 mg TID, holding as not tolerating NGT feeds -Ativan 2 gm IV TID DVT Prophylaxis -Heparin 5000 units SQ TID [facility] -Fluids: Clinimix @ 42 cc/hr -Electrolytes: No electrolyte abnormalities, BMP in AM -Nutrition: NPO, hold tube feeds, begin Clinimix Disposition Med/Surg Visit type - Emergency Visit Emergency Visit: Yes ED Registration Date: 06/09/18 Care time: The patient presented to the Emergency Department on the above date and was hospitalized for further evaluation of their emergent condition. - New Patient This patient is new to me today: No - Critical Care Critical Care patient: No
[2018-06-21] MEDS: ALBUTEROL SO4 2.5/IPRATROPIUM 0.5 INH SOL 3 ML VIAL.NEB. NEB SCH ×3 (12:00→20:00)
[2018-06-21] MEDS: PANTOPRAZOLE 20 MG TABLET (FP) PO SCH (14:21)
[2018-06-21] MEDS: SENNOSIDES 8.6MG TABLET (FP) PO SCH (14:21)
[2018-06-21] MEDS: PSYLLIUM 5.85 GM PACKET PO SCH (14:21)
[2018-06-21] MEDS: CALCIUM 500MG/VIT-D 200 UNITS COMBO TABLET (FP) PO SCH ×2 (14:21→21:23)
[2018-06-21] MEDS: CHLORHEXIDINE GLUCONATE 0.12% 15ML CUP MM SCH ×2 (14:21→22:12)
[2018-06-21] MEDS: CHOLECALCIFEROL (VITAMIN D3) 400 UNIT TABLET (FP) PO SCH (14:21)
[2018-06-21] MEDS: LORATADINE 10 MG TABLET PO SCH (14:21)
[2018-06-21] MEDS: RANITIDINE HCL 150 MG TABLET (FP) PO SCH ×2 (14:22→21:23)
--- NOTE | 2018-06-21 14:43 | PN ---
Progress Note, SENSOR TECHNICIAN - Note Progress Note: Selected Entries 06/21/18 06/21/18 06/21/18 05:48 09:00 13:36 Temperature 99.7 F H 101.5 F H 100.4 F H Laboratory Tests 06/21/18 06:45 WBC 10.1 H Remains febrile . More tachypneic today. Enteral feeds stopped and started on PPN. MBS results reviewed with staff. PEG being considered.
--- NOTE | 2018-06-21 14:56 | PN ---
Progress Note, Physician History of Present Illness: patient was tachy spiked fever - Current Medication List Current Medications: Active Medications Acetaminophen (Tylenol Suppository -) 650 mg [place] Q6H PRN PRN Reason: FEVER Last Admin: 06/21/18 09:20 Dose: 650 mg Albuterol Sulfate (Ventolin 0.083% Nebulizer Soln -) 1 amp NEB Q4H PRN PRN Reason: SHORT OF BREATH/WHEEZING Albuterol/Ipratropium (Duoneb -) 1 amp NEB RQID [facility] Last Admin: 06/21/18 12:00 Dose: 1 amp Baclofen (Lioresal -) 10 mg PO TID [facility] Last Admin: 06/21/18 06:37 Dose: Not Given Bisacodyl (Dulcolax Suppository -) 10 mg RC DAILY PRN PRN Reason: CONSTIPATION Last Admin: 06/17/18 11:35 Dose: 10 mg Calcium Carbonate/Cholecalciferol (Os-Hitesh 500+D -) 1 tab PO BID [facility] Last Admin: 06/21/18 14:21 Dose: Not Given Chlorhexidine Gluconate (Peridex -) 30 ml MM BID [facility] Last Admin: 06/21/18 14:21 Dose: Not Given Cholecalciferol (Vitamin D3 -) 400 unit PO DAILY [facility] Last Admin: 06/21/18 14:21 Dose: Not Given Heparin Sodium (Porcine) (Heparin -) 5,000 unit SQ TID [facility] Last Admin: 06/21/18 06:38 Dose: 5,000 unit Piperacillin Sod/Tazobactam (Sod 3.375 gm/ Dextrose) 50 mls @ 100 mls/hr IVPB Q8H-IV [facility]; Protocol Last Admin: 06/21/18 10:36 Dose: 100 mls/hr Amino Acids (Clinimix -) 1,000 mls @ 42 mls/hr IV Q12H [facility] Last Admin: 06/21/18 04:00 Dose: Not Given Vancomycin HCl 1,500 mg/ (Dextrose) 500 mls @ 250 mls/hr IVPB Q24H [facility]; Protocol Levetiracetam (Keppra Injection -) 500 mg IVPB BID [facility] Last Admin: 06/21/18 10:36 Dose: 500 mg Loratadine (Claritin -) 10 mg PO DAILY [facility] Last Admin: 06/21/18 14:21 Dose: Not Given Lorazepam (Ativan Injection -) 2 mg IVPUSH TID [facility] Pantoprazole Sodium (Protonix -) 20 mg PO DAILY [facility] Last Admin: 06/21/18 14:21 Dose: Not Given Psyllium Hydrophilic Mucilloid (Metamucil (Sugar-Free) -) 5.85 gm PO DAILY [facility] Last Admin: 06/21/18 14:21 Dose: Not Given Ranitidine HCl (Zantac -) 150 mg PO BID [facility] Last Admin: 06/21/18 14:22 Dose: Not Given Senna (Senna -) 2 tab PO DAILY [facility] Last Admin: 06/21/18 14:21 Dose: Not Given - Objective Vital Signs: Vital Signs Temperature 100.4 F H 06/21/18 13:36 Pulse Rate 118 H 06/21/18 13:36 Respiratory Rate 30 H 06/21/18 13:36 Blood Pressure 97/67 06/21/18 13:36 O2 Sat by Pulse Oximetry (%) 100 06/21/18 09:00 Constitutional: Yes: No Distress, Calm Cardiovascular: Yes: Regular Rate and Rhythm Respiratory: Yes: Regular, Poor Air Entry, Rhonchi Gastrointestinal: Yes: Normal Bowel Sounds, Soft Musculoskeletal: Yes: WNL Extremities: Yes: Other Neurological: Yes: Alert, Other Labs: CBC, BMP 06/21/18 06:45 06/21/18 06:45 INR, PTT INR 1.14 (0.83-1.09) H 06/10/18 06:00 Assessment/Plan Problem List - Problems (1) Pneumonia Code(s): J18.9 - PNEUMONIA, UNSPECIFIED ORGANISM (2) Aspiration pneumonia Code(s): J69.0 - PNEUMONITIS DUE TO INHALATION OF FOOD AND VOMIT (3) Fever Code(s): R50.9 - FEVER, UNSPECIFIED (4) Altered mental status Code(s): R41.82 - ALTERED MENTAL STATUS, UNSPECIFIED Qualifiers: Altered mental status type: unspecified Qualified Code(s): R41.82 - Altered mental status, unspecified (5) Cerebral palsy Code(s): G80.9 - CEREBRAL PALSY, UNSPECIFIED (6) Constipation Code(s): K59.00 - CONSTIPATION, UNSPECIFIED (7) Functional quadriplegia Code(s): R53.2 - FUNCTIONAL QUADRIPLEGIA (8) Mental retardation Code(s): F79 - UNSPECIFIED INTELLECTUAL DISABILITIES (9) Seizures Code(s): R56.9 - UNSPECIFIED CONVULSIONS plan continue abx increased dose of vanco await for cx reports plan for peg tube rest as per the team
[2018-06-21] MEDS: LORazepam 2 MG/ML SDV VIAL IVPUSH SCH ×2 (15:04→21:20)
--- NOTE | 2018-06-21 15:06 | PN ---
Teaching Attending Note Name of Resident: Pedro Morejon ATTENDING PHYSICIAN STATEMENT I saw and evaluated the patient. I reviewed the resident's note and discussed the case with the resident. I agree with the resident's findings and plan as documented with exceptions below. SUBJECTIVE: Patient seen and examined. non verbal, more tachypneic, unable to assess for ROS. OBJECTIVE: Vital Signs Period Temp Pulse Resp BP Sys/Ascencio Pulse Ox Last 24 Hr 99.3 F-101.5 F 54-122 18-40 59-150/36-82 97-100 Intake & Output 06/18/18 06/19/18 06/20/18 06/21/18 23:59 23:59 23:59 23:59 Intake Total 750 790 790 0 Output Total 10 Balance 750 790 780 0 General: tachypneic, non verbal Chest: coarse rales Abdomen:Soft, positive bowel sounds, no grimacing on exam Extremities: contractures Active Medications Acetaminophen (Tylenol Suppository -) 650 mg NV Q6H PRN PRN Reason: FEVER Last Admin: 06/21/18 15:04 Dose: 650 mg Albuterol Sulfate (Ventolin 0.083% Nebulizer Soln -) 1 amp NEB Q4H PRN PRN Reason: SHORT OF BREATH/WHEEZING Albuterol/Ipratropium (Duoneb -) 1 amp NEB RQID [facility] Last Admin: 06/21/18 12:00 Dose: 1 amp Baclofen (Lioresal -) 10 mg PO TID [facility] Last Admin: 06/21/18 15:03 Dose: Not Given Bisacodyl (Dulcolax Suppository -) 10 mg RC DAILY PRN PRN Reason: CONSTIPATION Last Admin: 06/17/18 11:35 Dose: 10 mg Calcium Carbonate/Cholecalciferol (Os-Hitesh 500+D -) 1 tab PO BID [facility] Last Admin: 06/21/18 14:21 Dose: Not Given Chlorhexidine Gluconate (Peridex -) 30 ml MM BID [facility] Last Admin: 06/21/18 14:21 Dose: Not Given Cholecalciferol (Vitamin D3 -) 400 unit PO DAILY [facility] Last Admin: 06/21/18 14:21 Dose: Not Given Heparin Sodium (Porcine) (Heparin -) 5,000 unit SQ TID [facility] Last Admin: 10/09/18 15:04 Dose: 5,000 unit Piperacillin Sod/Tazobactam (Sod 3.375 gm/ Dextrose) 50 mls @ 100 mls/hr IVPB Q8H-IV [facility]; Protocol Last Admin: 06/21/18 10:36 Dose: 100 mls/hr Amino Acids (Clinimix -) 1,000 mls @ 42 mls/hr IV Q12H [facility] Last Admin: 06/21/18 04:00 Dose: Not Given Vancomycin HCl 1,500 mg/ (Dextrose) 500 mls @ 250 mls/hr IVPB Q24H [facility]; Protocol Levetiracetam (Keppra Injection -) 500 mg IVPB BID [facility] Last Admin: 06/21/18 10:36 Dose: 500 mg Loratadine (Claritin -) 10 mg PO DAILY [facility] Last Admin: 06/21/18 14:21 Dose: Not Given Lorazepam (Ativan Injection -) 2 mg IVPUSH TID [facility] Last Admin: 06/21/18 15:04 Dose: 2 mg Pantoprazole Sodium (Protonix -) 20 mg PO DAILY [facility] Last Admin: 06/21/18 14:21 Dose: Not Given Psyllium Hydrophilic Mucilloid (Metamucil (Sugar-Free) -) 5.85 gm PO DAILY [facility] Last Admin: 06/21/18 14:21 Dose: Not Given Ranitidine HCl (Zantac -) 150 mg PO BID [facility] Last Admin: 06/21/18 14:22 Dose: Not Given Senna (Senna -) 2 tab PO DAILY [facility] Last Admin: 06/21/18 14:21 Dose: Not Given Laboratory Results - last 24 hr 06/20/18 06/20/18 06/21/18 16:00 17:00 06:45 WBC 10.1 H RBC 2.99 L Hgb 10.3 L Hct 30.0 L MCV 100.1 H MCH 34.5 H D MCHC 34.4 RDW 14.4 Plt Count 333 MPV 7.2 L Absolute Neuts (auto) 8.8 H Neutrophils % 87.2 H Lymphocytes % 5.6 L D Monocytes % 4.1 Eosinophils % 2.8 D Basophils % 0.3 Nucleated RBC % 0 Sodium Potassium Chloride Carbon Dioxide Anion Gap BUN Creatinine Creat Clearance w eGFR Random Glucose Calcium Phosphorus Magnesium Urine Color Yellow Urine Appearance Clear Urine pH 7.0 D Ur Specific [place] 1.020 Urine Protein Negative Urine Glucose (UA) Negative Urine Ketones Negative Urine Blood Negative Urine Nitrite Negative Urine Bilirubin Negative Urine Urobilinogen Negative Ur Leukocyte Esterase Negative Vancomycin Pre-Dose 6.4 L 06/21/18 06:45 WBC RBC Hgb Hct MCV MCH MCHC RDW Plt Count MPV Absolute Neuts (auto) Neutrophils % Lymphocytes % Monocytes % Eosinophils % Basophils % Nucleated RBC % Sodium 137 Potassium 4.0 Chloride 101 Carbon Dioxide 30 Anion Gap 6 L BUN 10 Creatinine 0.4 L Creat Clearance w eGFR > 60 Random Glucose 97 Calcium 8.1 L Phosphorus 2.2 L Magnesium 2.1 Urine Color Urine Appearance Urine pH Ur Specific [place] Urine Protein Urine Glucose (UA) Urine Ketones Urine Blood Urine Nitrite Urine Bilirubin Urine Urobilinogen Ur Leukocyte Esterase Vancomycin Pre-Dose Microbiology 06/12/18 20:30 Blood - Peripheral Venous Blood Culture - Final NO GROWTH AFTER 5 DAYS INCUBATION 06/12/18 17:00 Blood - Peripheral Venous Blood Culture - Final NO GROWTH AFTER 5 DAYS INCUBATION 06/09/18 18:00 Blood - Peripheral Venous Blood Culture - Final NO GROWTH AFTER 5 DAYS INCUBATION 06/09/18 17:30 Blood - Peripheral Venous Blood Culture - Final NO GROWTH AFTER 5 DAYS INCUBATION 06/13/18 04:10 Urine - Urine - Catheterized Urine Culture - Final NO GROWTH OBTAINED 06/13/18 04:10 Urine For Antigen Detection Legionella Antigen - Final 06/13/18 04:10 Urine For Antigen Detection Streptococcus pneumoniae Antigen (M - Final 06/09/18 22:59 Urine - Urine - Catheterized Urine Culture - Final NO GROWTH OBTAINED 06/10/18 14:30 Nasopharyngeal Swab Influenza Types A,B Antigen - Final 06/10/18 14:30 Nasopharyngeal Swab - Final ASSESSMENT AND PLAN: 52 yom with PMHx of mental retardation, cerebral palsy with spastic quadriplegia , scoliosis, epilepsy(last seizure activity February of 2017, currently receiving diazepam 5 mg 3 tabs po BID and Keppra 500 mg BID), b/l foot contractures, 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 Zosyn day 12, vanco day 6 ID input noted. Speech/swallow input noted. On Clinimix currently. Aspiration precautions. Family agreable to PEG placement. GI consult. Unable to take PO meds. ATivan IV TID while NPO given h/o seizures when tapered off benzos. DVTPPX dispo pending clinical improvement. Plan discussed with aide at bedside,all questions answered.
[2018-06-21] MEDS: VANCOMYCIN 1,500 MG in DEXTROSE 5%-WATER - 500 ML IVPB SCH (16:41)
--- NOTE | 2018-06-21 17:56 | CON.GI ---
Consult Consult Specialty:: GI - History of Present Illness History of Present Illness: Pt is nonverbal. Information taken from paperwork provided from [facility] and [facility].Pt is a 52 y/o lady from 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 Pt presented to [facility] this evening (06/09/18) due to fever (Tmax unspecified at [place], 103.5 in ED) and a new cough. Per aid, pt has been having shallow breathing since this yesterday evening. Pt was given albuterol treatment at 1:55 pm yesterday and Robitussin at 10:25 am. Pt presented to our ED with similar presentation in June of last year. - Past Medical History FRAME OPENER: Yes: Seizure, Other (MR, cerebral palsy) Additional Medical History: Profound MR - Alcohol/Substance Use Hx Alcohol Use: No - Smoking History Smoking history: Unknown if ever smoked Have you smoked in the past 12 months: No Aproximately how many cigarettes per day: 0 - Social History Usual Living Arrangement: Residential ADL: Support Services Home Medications - Allergies Allergies/Adverse Reactions: Allergies Allergy/AdvReac Type Severity Reaction Status Date / Time No Known Allergies Allergy Verified 06/09/18 15:38 - Home Medications Home Medications: Ambulatory Orders Bisacodyl [Biscolax] 10 mg RC DAILY PRN 02/21/17 Calcium 500Mg/Vit-D 200 Units [Os-Hitesh 500+D -] 1 combo PO BID 02/21/17 Cetirizine HCl [24Hour Allergy] 10 mg PO DAILY 02/21/17 Chlorhexidine Gluconate 30 ml MM BID 02/21/17 Diazepam [Valium] 15 mg PO BID 02/21/17 Ranitidine [Zantac -] 150 mg PO BID 02/21/17 Sennosides [Senna] 2 tab PO DAILY 02/21/17 levETIRAcetam [Keppra Oral Solution -] 500 mg PO BID #1 bottle 03/02/17 Baclofen 10 mg PO TID 06/13/17 Albuterol 0.083% Nebulizer Suzanne [Ventolin 0.083% Nebulizer Soln -] 1 neb NEB Q6H 06/09/18 Cholecalciferol (Vitamin D3) [Vitamin D3] 400 unit PO DAILY 06/09/18 Diazepam [Diastat Acudial] 1 each RC DAILY 06/09/18 Olopatadine HCl [Pataday] 2.5 ml OP DAILY 06/09/18 Psyllium Husk [Metamucil] 0.4 gm PO DAILY 06/09/18 Omeprazole 20 mg PO DAILY 06/10/18 Physical Exam-GI Vital Signs: Vital Signs Temperature 100.1 F H 06/21/18 16:49 Pulse Rate 115 H 06/21/18 16:49 Respiratory Rate 25 H 06/21/18 16:49 Blood Pressure 89/58 L 06/21/18 16:49 O2 Sat by Pulse Oximetry (%) 100 06/21/18 09:00 Labs: CBC, BMP 06/21/18 06:45 06/21/18 06:45 INR, PTT INR 1.14 (0.83-1.09) H 06/10/18 06:00
[2018-06-21] MEDS: NYSTATIN 100000 UNIT/GM TOPICAL OINTMENT 15 GM TUBE TP SCH (22:16)
[2018-06-21] MEDS: BISACODYL 10 MG SUPP.RECT RC PRN (22:21)
[2018-06-21] MEDS: ALBUTEROL SO4 0.083% IH SOL 2.5 MG/3 ML VIAL.NEB. NEB PRN (23:10)
[2018-06-22] MEDS ORDERED: PIPERACILLIN/TAZOBACTAM 3.375 GM VIAL IVPB ONE ×3 (01:13→16:48)
[2018-06-22] MEDS ORDERED: DEXTROSE 5%-WATER - 50 ML IVPB ONE ×3 (01:13→16:48)
[2018-06-22] MEDS: PIPERACILLIN/TAZOB 3.375 GM 3.375 GM in DEXTROSE 5%-WATER - 50 ML IVPB SCH ×4 (01:20→17:48)
[2018-06-22] MEDS: AMINO ACIDS 4.25%/D5W 1,000 ML IV SCH ×3 (03:45→17:20)
[2018-06-22] MEDS: ACETAMINOPHEN 325 MG SUPP.RECT PR PRN ×2 (04:54→18:06)
[2018-06-22] MEDS: BACLOFEN 10 MG TABLET (FP) PO SCH ×3 (05:41→22:17)
[2018-06-22] MEDS: LORazepam 2 MG/ML SDV VIAL IVPUSH SCH ×3 (05:41→22:18)
[2018-06-22] MEDS: HEPARIN NA (PORCINE) 5,000 UNITS/ML 1ML VIAL SQ SCH ×3 (05:41→22:18)
[2018-06-22 07:51] LABS: BASO % 0.1 % (0-2.0); EOS % 2.4 % (0-4.5); HEMATOCRIT 27.3 % (32.4-45.2); HEMOGLOBIN 9.4 GM/dL (10.7-15.3); LYMPH % 7.2 % (8-40); MCH 35.6 pg (25.7-33.7); MCHC 34.6 g/dl (32.0-36.0); MEAN CELL VOLUME 102.9 fl (80-96); MEAN PLT VOLUME 8.1 fl (7.5-11.1); NEUT % 85.3 % (42.8-82.8); RBC 2.65 M/mm3 (3.60-5.2); RDW 14.9 % (11.6-15.6); WHITE BLOOD COUNT 10.6 K/mm3 (4.0-10.0)
[2018-06-22] MEDS: ALBUTEROL SO4 2.5/IPRATROPIUM 0.5 INH SOL 3 ML VIAL.NEB. NEB SCH ×4 (08:10→20:09)
[2018-06-22 08:32] LABS: ANION GAP 5 MMOL/L (8-16); BLOOD UREA NITROGEN 9 mg/dL (7-18); CALCIUM 8.5 mg/dL (8.5-10.1); CHLORIDE 104 mmol/L (98-107); CO2 28 mmol/L (21-32); CREATININE 0.3 mg/dL (0.55-1.3); GLUCOSE,RANDOM 94 mg/dL (74-106); MAGNESIUM 1.9 mg/dL (1.8-2.4); POTASSIUM 3.9 mmol/L (3.5-5.1); SODIUM 137 mmol/L (136-145)
[2018-06-22] MEDS: CALCIUM 500MG/VIT-D 200 UNITS COMBO TABLET (FP) PO SCH ×2 (10:10→22:17)
[2018-06-22] MEDS: CHLORHEXIDINE GLUCONATE 0.12% 15ML CUP MM SCH ×2 (10:10→22:17)
[2018-06-22] MEDS: LORATADINE 10 MG TABLET PO SCH (10:10)
[2018-06-22] MEDS: SENNOSIDES 8.6MG TABLET (FP) PO SCH (10:11)
[2018-06-22] MEDS: CHOLECALCIFEROL (VITAMIN D3) 400 UNIT TABLET (FP) PO SCH (10:11)
[2018-06-22] MEDS: PANTOPRAZOLE SODIUM 40 MG VIAL IVPUSH SCH (10:13)
[2018-06-22] MEDS: levETIRAcetam 500 MG/5 ML INJECTION VIAL IVPB SCH ×2 (10:13→22:18)
[2018-06-22 10:49] LABS: ANISOCYTOSIS 3+; MACROCYTOSIS 0; PLATELET ESTIMATE NORMAL
--- NOTE | 2018-06-22 11:14 | PN ---
Progress Note, [facility] - Note Progress Note: Selected Entries 06/21/18 06/21/18 06/21/18 05:48 09:00 13:36 Temperature 99.7 F H 101.5 F H 100.4 F H Laboratory Tests 06/21/18 06:45 WBC 10.1 H Selected Entries 06/21/18 06/21/18 06/21/18 05:48 09:00 13:36 Supper Temperature 99.7 F H 101.5 F H 100.4 F H 06/21/18 06/21/18 06/21/18 15:16 16:49 18:00 Supper Temperature 101.3 F H 100.1 F H 100.1 F H 06/21/18 06/22/18 06/22/18 22:50 03:30 06:21 Supper NPO Temperature 102.7 F H 100.5 F H Laboratory Tests 06/21/18 06/22/18 06:45 07:25 WBC 10.1 H 10.6 H MBS results reviewed with staff. PEG being considered.
--- NOTE | 2018-06-22 12:34 | PN ---
Progress Note, Physician History of Present Illness: fevers continue abx have been adjusted still spiking fevers - Current Medication List Current Medications: Active Medications Acetaminophen (Tylenol Suppository -) 650 mg RI Q6H PRN PRN Reason: FEVER Last Admin: 06/22/18 04:54 Dose: 650 mg Albuterol Sulfate (Ventolin 0.083% Nebulizer Soln -) 1 amp NEB Q4H PRN PRN Reason: SHORT OF BREATH/WHEEZING Last Admin: 06/21/18 23:10 Dose: 1 amp Albuterol/Ipratropium (Duoneb -) 1 amp NEB RQID [facility] Last Admin: 06/22/18 08:10 Dose: 1 amp Baclofen (Lioresal -) 10 mg PO TID [facility] Last Admin: 06/22/18 05:41 Dose: Not Given Bisacodyl (Dulcolax Suppository -) 10 mg RC DAILY PRN PRN Reason: CONSTIPATION Last Admin: 06/17/18 11:35 Dose: 10 mg Calcium Carbonate/Cholecalciferol (Os-Hitesh 500+D -) 1 tab PO BID [facility] Last Admin: 06/22/18 10:10 Dose: Not Given Chlorhexidine Gluconate (Peridex -) 30 ml MM BID [facility] Last Admin: 06/22/18 10:10 Dose: Not Given Cholecalciferol (Vitamin D3 -) 400 unit PO DAILY [facility] Last Admin: 06/22/18 10:11 Dose: Not Given Heparin Sodium (Porcine) (Heparin -) 5,000 unit SQ TID [facility] Last Admin: 06/22/18 05:41 Dose: 5,000 unit Piperacillin Sod/Tazobactam (Sod 3.375 gm/ Dextrose) 50 mls @ 100 mls/hr IVPB Q8H-IV [facility]; Protocol Last Admin: 06/22/18 10:14 Dose: 100 mls/hr Amino Acids (Clinimix -) 1,000 mls @ 42 mls/hr IV Q12H [facility] Last Admin: 06/22/18 09:27 Dose: 42 mls/hr Vancomycin HCl 1,500 mg/ (Dextrose) 500 mls @ 250 mls/hr IVPB Q24H [facility]; Protocol Last Admin: 06/21/18 16:41 Dose: 250 mls/hr Levetiracetam (Keppra Injection -) 500 mg IVPB BID [facility] Last Admin: 06/22/18 10:13 Dose: 500 mg Loratadine (Claritin -) 10 mg PO DAILY [facility] Last Admin: 06/22/18 10:10 Dose: Not Given Lorazepam (Ativan Injection -) 2 mg IVPUSH TID [facility] Last Admin: 06/22/18 05:41 Dose: 2 mg Nystatin (Mycostatin Ointment -) 1 applic TP BID [facility] Last Admin: 06/21/18 22:16 Dose: 1 applic Pantoprazole Sodium (Protonix Iv) 20 mg IVPUSH DAILY [facility] Last Admin: 06/22/18 10:13 Dose: 20 mg Senna (Senna -) 2 tab PO DAILY [facility] Last Admin: 06/22/18 10:11 Dose: Not Given - Objective Vital Signs: Vital Signs Temperature 100.5 F H 06/22/18 06:21 Pulse Rate 58 L 06/22/18 06:21 Respiratory Rate 25 H 06/22/18 06:21 Blood Pressure 100/54 L 06/22/18 06:21 O2 Sat by Pulse Oximetry (%) 100 06/21/18 20:12 Constitutional: Yes: Calm Cardiovascular: Yes: Regular Rate and Rhythm, Tachycardia Respiratory: Yes: On Nasal O2, Poor Air Entry, Rhonchi Gastrointestinal: Yes: Normal Bowel Sounds, Soft Musculoskeletal: Yes: WNL Extremities: Yes: Other Neurological: Yes: Other Labs: CBC, BMP 06/22/18 07:25 06/22/18 07:25 INR, PTT INR 1.14 (0.83-1.09) H 06/10/18 06:00 Assessment/Plan Problem List - Problems (1) Pneumonia Code(s): J18.9 - PNEUMONIA, UNSPECIFIED ORGANISM (2) Aspiration pneumonia Code(s): J69.0 - PNEUMONITIS DUE TO INHALATION OF FOOD AND VOMIT (3) Fever Code(s): R50.9 - FEVER, UNSPECIFIED (4) Altered mental status Code(s): R41.82 - ALTERED MENTAL STATUS, UNSPECIFIED Qualifiers: Altered mental status type: unspecified Qualified Code(s): R41.82 - Altered mental status, unspecified (5) Cerebral palsy Code(s): G80.9 - CEREBRAL PALSY, UNSPECIFIED (6) Constipation Code(s): K59.00 - CONSTIPATION, UNSPECIFIED (7) Functional quadriplegia Code(s): R53.2 - FUNCTIONAL QUADRIPLEGIA (8) Mental retardation Code(s): F79 - UNSPECIFIED INTELLECTUAL DISABILITIES (9) Seizures Code(s): R56.9 - UNSPECIFIED CONVULSIONS patient continues to have repeats fevers inspite being on abx plan continue to monitor hydration continue abx for now g tube being considered aspiration precautions
--- NOTE | 2018-06-22 13:36 | PN ---
Physical Exam: SUBJECTIVE: Patient seen and examined this AM. She is similar to yesterday. Discussed with aide the current plan and that family was spoken with and agreeable to PEG insertion if medically necessary. OBJECTIVE: Vital Signs Period Temp Pulse Resp BP Sys/Ascencio Pulse Ox Last 24 Hr 100.1 F-102.7 F 58-118 25-30 89-100/54-67 100 GENERAL: Awake,nonverbal, in no acute distress HEAD: Microcephalic, atraumatic. EYES: PERRL, no scleral icterus EARS, NOSE, THROAT: oropharynx clear with less mucus secretions. Moist mucous membranes. NG tube in place and secured. LUNGS: Minimal rhonchi diffusely, expiratory wheezes HEART: Regular rate and rhythm, normal S1 and S2 without murmur ABDOMEN: Soft, nontender to palpation, normoactive bowel sounds MUSCULOSKELETAL: Severe levoscoliosis EXTREMITIES: Contracted, trace dependent edema in b/l UE SKIN: Warm, dry, no rashes or lesions noted Laboratory Results - last 24 hr 06/22/18 06/22/18 07:25 07:25 WBC 10.6 H RBC 2.65 L Hgb 9.4 L Hct 27.3 L MCV 102.9 H MCH 35.6 H MCHC 34.6 RDW 14.9 Plt Count MPV 8.1 D Absolute Neuts (auto) 9.0 H Neutrophils % 85.3 H Neutrophils % (Manual) 91.0 H Band Neutrophils % 0.0 Lymphocytes % 7.2 L D Lymphocytes % (Manual) 6.0 L Monocytes % 5.0 Monocytes % (Manual) 2 L Eosinophils % 2.4 Eosinophils % (Manual) 0.0 Basophils % 0.1 Basophils % (Manual) 0.0 Myelocytes % (Man) 1 Promyelocytes % (Man) 0 Blast Cells % (Manual) 0 Nucleated RBC % 0 Metamyelocytes 0 Hypochromia 2+ Platelet Estimate Normal Polychromasia 3+ Poikilocytosis 3+ Anisocytosis 3+ Microcytosis 3+ Macrocytosis 0 Sodium 137 Potassium 3.9 Chloride 104 Carbon Dioxide 28 Anion Gap 5 L BUN 9 Creatinine 0.3 L Creat Clearance w eGFR > 60 Random Glucose 94 Calcium 8.5 Phosphorus 2.0 L Magnesium 1.9 Active Medications Generic Name Dose Route Start Last Admin Trade Name Freq PRN Reason Stop Dose Admin Acetaminophen 650 mg 06/21/18 08:58 06/22/18 04:54 Tylenol Suppository - [place] 650 mg Q6H PRN Administration FEVER Albuterol Sulfate 1 amp 06/21/18 11:00 06/21/18 23:10 Ventolin 0.083% Nebulizer Soln - NEB 1 amp Q4H PRN Administration SHORT OF BREATH/WHEEZING Albuterol/Ipratropium 1 amp 06/21/18 12:00 06/22/18 08:10 Duoneb - NEB 1 amp RQID [facility] Administration Baclofen 10 mg 06/10/18 08:00 06/22/18 05:41 Lioresal - PO Not Given TID [facility] Bisacodyl 10 mg 06/10/18 14:38 06/17/18 11:35 Dulcolax Suppository - RC 10 mg DAILY PRN Administration CONSTIPATION Calcium Carbonate/Cholecalciferol 1 tab 06/10/18 22:00 06/22/18 10:10 Os-Hitesh 500+D - PO Not Given BID [facility] Chlorhexidine Gluconate 30 ml 06/10/18 22:00 06/22/18 10:10 Peridex - MM Not Given BID [facility] Cholecalciferol 400 unit 06/11/18 10:00 06/22/18 10:11 Vitamin D3 - PO Not Given DAILY [facility] Heparin Sodium (Porcine) 5,000 unit 06/10/18 22:00 06/22/18 05:41 Heparin - SQ 5,000 unit TID [facility] Administration Piperacillin Sod/Tazobactam 50 mls @ 100 mls/hr 06/10/18 18:00 06/22/18 10:14 Sod 3.375 gm/ Dextrose IVPB 100 mls/hr Q8H-IV [facility] Administration Protocol Amino Acids 1,000 mls @ 42 mls/hr 06/20/18 15:45 06/22/18 09:27 Clinimix - IV 42 mls/hr Q12H [facility] Administration Vancomycin HCl 1,500 mg/ 500 mls @ 250 mls/hr 06/21/18 15:00 06/21/18 16:41 Dextrose IVPB 250 mls/hr Q24H [facility] Administration Protocol Levetiracetam 500 mg 06/10/18 22:00 06/22/18 10:13 Keppra Injection - IVPB 500 mg BID [facility] Administration Loratadine 10 mg 06/10/18 14:45 06/22/18 10:10 Claritin - PO Not Given DAILY [facility] Lorazepam 2 mg 06/21/18 14:00 06/22/18 05:41 Ativan Injection - IVPUSH 2 mg TID [facility] Administration Nystatin 1 applic 06/21/18 22:00 06/21/18 22:16 Mycostatin Ointment - TP 1 applic BID [facility] Administration Pantoprazole Sodium 20 mg 06/22/18 10:00 06/22/18 10:13 Protonix Iv IVPUSH 20 mg DAILY [facility] Administration Senna 2 tab 06/11/18 10:00 06/22/18 10:11 Senna - PO Not Given DAILY [facility] ASSESSMENT/PLAN: 52 yo Female with PMH Cerebral Palsy with spastic quadriplegia, Mental Retardation, Epilepsy, Scoliosis presented from [facility] for vomiting followed by high fevers and cough. Sepsis secondary to Aspiration pneumonia vs pneumonitis -Febrile 103.5 on admission, Tachycardic, tachypnic -Fevers improving -Chest CT: RUL congestion suspicious for pneumonia vs pneumonitis -ID consult appreciated Zosyn 3.375 gm Q8 IV, Vancomycin 1 gm IV Daily -Ventolin NEBs QID -Pulmonology consult appreciated -Continued fevers, 102 overnight -Repeat blood/urine cultures negative, CXR unchanged -Modified barium swallow noted for possible silent aspiration, recommendation to consider PEG even if just for temporary feeding -Extensive discussion with Pts sister and mother, Family is amenable to PEG insertion if medically necessary for feeding -Family states that pt does better when sitting up in her wheelchair than when lying in bed -GI consulted for evaluation of possible PEG insertion -Still requiring O2 positionally, will attempt to wean off -Scopolamine Patch in attempt to decrease secretions Abdominal Distension - improved -KUB Flat plate - bowel distension concerning for ileus, no obstruction or fecal impaction noted -Feeds held with vomiting and concern for continued aspiration Epilepsy -Keppra 500 mg PO BID switched to IV until tolerates PO -Ativan 2gm IV TID Spasticity -Pt on Baclofen 10 mg TID, holding as not tolerating NGT feeds -Ativan 2 gm IV TID DVT Prophylaxis -Heparin 5000 units SQ TID [facility] -Fluids: Clinimix @ 42 cc/hr -Electrolytes: No electrolyte abnormalities, BMP in AM -Nutrition: NPO, hold tube feeds, Clinimix Disposition Med/Surg Visit type - Emergency Visit Emergency Visit: Yes ED Registration Date: 06/09/18 Care time: The patient presented to the Emergency Department on the above date and was hospitalized for further evaluation of their emergent condition. - New Patient This patient is new to me today: No - Critical Care Critical Care patient: No
[2018-06-22] MEDS ORDERED: SCOPOLAMINE HYDROBROMIDE 1 PATCH PATCH.TD72 TD SCH (13:45)
--- NOTE | 2018-06-22 14:21 | PN ---
Progress Note, Physician History of Present Illness: PULMONARY AWAKE,CONGESTED,MILDY TACHYPNEIC - Current Medication List Current Medications: Active Medications Acetaminophen (Tylenol Suppository -) 650 mg AL Q6H PRN PRN Reason: FEVER Last Admin: 06/22/18 04:54 Dose: 650 mg Albuterol Sulfate (Ventolin 0.083% Nebulizer Soln -) 1 amp NEB Q4H PRN PRN Reason: SHORT OF BREATH/WHEEZING Last Admin: 06/21/18 23:10 Dose: 1 amp Albuterol/Ipratropium (Duoneb -) 1 amp NEB RQID [facility] Last Admin: 06/22/18 08:10 Dose: 1 amp Baclofen (Lioresal -) 10 mg PO TID [facility] Last Admin: 06/22/18 05:41 Dose: Not Given Bisacodyl (Dulcolax Suppository -) 10 mg RC DAILY PRN PRN Reason: CONSTIPATION Last Admin: 06/17/18 11:35 Dose: 10 mg Calcium Carbonate/Cholecalciferol (Os-Hitesh 500+D -) 1 tab PO BID [facility] Last Admin: 06/22/18 10:10 Dose: Not Given Chlorhexidine Gluconate (Peridex -) 30 ml MM BID [facility] Last Admin: 06/22/18 10:10 Dose: Not Given Cholecalciferol (Vitamin D3 -) 400 unit PO DAILY [facility] Last Admin: 06/22/18 10:11 Dose: Not Given Heparin Sodium (Porcine) (Heparin -) 5,000 unit SQ TID [facility] Last Admin: 06/22/18 05:41 Dose: 5,000 unit Piperacillin Sod/Tazobactam (Sod 3.375 gm/ Dextrose) 50 mls @ 100 mls/hr IVPB Q8H-IV [facility]; Protocol Last Admin: 06/22/18 10:14 Dose: 100 mls/hr Amino Acids (Clinimix -) 1,000 mls @ 42 mls/hr IV Q12H [facility] Last Admin: 06/22/18 09:27 Dose: 42 mls/hr Vancomycin HCl 1,500 mg/ (Dextrose) 500 mls @ 250 mls/hr IVPB Q24H [facility]; Protocol Last Admin: 06/21/18 16:41 Dose: 250 mls/hr Levetiracetam (Keppra Injection -) 500 mg IVPB BID [facility] Last Admin: 06/22/18 10:13 Dose: 500 mg Loratadine (Claritin -) 10 mg PO DAILY [facility] Last Admin: 06/22/18 10:10 Dose: Not Given Lorazepam (Ativan Injection -) 2 mg IVPUSH TID [facility] Last Admin: 06/22/18 05:41 Dose: 2 mg Nystatin (Mycostatin Ointment -) 1 applic TP BID [facility] Last Admin: 06/21/18 22:16 Dose: 1 applic Pantoprazole Sodium (Protonix Iv) 20 mg IVPUSH DAILY [facility] Last Admin: 06/22/18 10:13 Dose: 20 mg Scopolamine HBr (Transderm-Scop -) 1 patch TD Q3D@1000 [facility] Senna (Senna -) 2 tab PO DAILY [facility] Last Admin: 06/22/18 10:11 Dose: Not Given - Objective Vital Signs: Vital Signs Temperature 100.5 F H 06/22/18 06:21 Pulse Rate 58 L 06/22/18 06:21 Respiratory Rate 25 H 06/22/18 06:21 Blood Pressure 100/54 L 06/22/18 06:21 O2 Sat by Pulse Oximetry (%) 100 06/21/18 20:12 Constitutional: Yes: Calm, Other (MILDY TACHYPNIEC) Eyes: Yes: WNL HENT: Yes: WNL Neck: Yes: WNL Cardiovascular: Yes: Regular Rate and Rhythm, S1, S2 Respiratory: Yes: Rhonchi (BILATERAL RHONCHI) Gastrointestinal: Yes: Normal Bowel Sounds, Soft Extremities: Yes: Other (BILATERAL LOWER EXT CONTRACTURES) Labs: CBC, BMP 06/22/18 07:25 06/22/18 07:25 INR, PTT INR 1.14 (0.83-1.09) H 06/10/18 06:00 Assessment/Plan A/P Pneumonia likely Aspiration Sepsis Seizure Disorder Cerebral Palsy Mental Retardation - continue antibiotics as per ID - repeat CXR - aspiration precautions - DVT prophylaxis DR [facility]
--- NOTE | 2018-06-22 14:38 | PN ---
Teaching Attending Note Name of Resident: Pedro Morejon ATTENDING PHYSICIAN STATEMENT I saw and evaluated the patient. I reviewed the resident's note and discussed the case with the resident. I agree with the resident's findings and plan as documented with exceptions below. SUBJECTIVE: Patient seen and examined. non verbal, unable to do ROS. OBJECTIVE: Vital Signs Period Temp Pulse Resp BP Sys/Ascencio Pulse Ox Last 24 Hr 100.1 F-102.7 F 58-115 25-25 89-100/54-58 100 Intake & Output 06/19/18 06/20/18 06/21/18 06/22/18 23:59 23:59 23:59 23:59 Intake Total 790 790 678 578 Output Total 10 Balance 790 780 678 578 General: sitting in bed, still tachypneic with coarse audible rales Chest; coarse scattered rales bilaterally Abdomen:soft, positive bowel sounds Extremities: contractures Active Medications Acetaminophen (Tylenol Suppository -) 650 mg [place] Q6H PRN PRN Reason: FEVER Last Admin: 06/22/18 04:54 Dose: 650 mg Albuterol Sulfate (Ventolin 0.083% Nebulizer Soln -) 1 amp NEB Q4H PRN PRN Reason: SHORT OF BREATH/WHEEZING Last Admin: 06/21/18 23:10 Dose: 1 amp Albuterol/Ipratropium (Duoneb -) 1 amp NEB RQID [facility] Last Admin: 06/22/18 08:10 Dose: 1 amp Baclofen (Lioresal -) 10 mg PO TID [facility] Last Admin: 06/22/18 05:41 Dose: Not Given Bisacodyl (Dulcolax Suppository -) 10 mg RC DAILY PRN PRN Reason: CONSTIPATION Last Admin: 06/17/18 11:35 Dose: 10 mg Calcium Carbonate/Cholecalciferol (Os-Hitesh 500+D -) 1 tab PO BID [facility] Last Admin: 06/22/18 10:10 Dose: Not Given Chlorhexidine Gluconate (Peridex -) 30 ml MM BID [facility] Last Admin: 06/22/18 10:10 Dose: Not Given Cholecalciferol (Vitamin D3 -) 400 unit PO DAILY [facility] Last Admin: 06/22/18 10:11 Dose: Not Given Heparin Sodium (Porcine) (Heparin -) 5,000 unit SQ TID [facility] Last Admin: 10/10/18 05:41 Dose: 5,000 unit Piperacillin Sod/Tazobactam (Sod 3.375 gm/ Dextrose) 50 mls @ 100 mls/hr IVPB Q8H-IV [facility]; Protocol Last Admin: 06/22/18 10:14 Dose: 100 mls/hr Amino Acids (Clinimix -) 1,000 mls @ 42 mls/hr IV Q12H [facility] Last Admin: 06/22/18 09:27 Dose: 42 mls/hr Vancomycin HCl 1,500 mg/ (Dextrose) 500 mls @ 250 mls/hr IVPB Q24H [facility]; Protocol Last Admin: 06/21/18 16:41 Dose: 250 mls/hr Levetiracetam (Keppra Injection -) 500 mg IVPB BID [facility] Last Admin: 06/22/18 10:13 Dose: 500 mg Loratadine (Claritin -) 10 mg PO DAILY [facility] Last Admin: 06/22/18 10:10 Dose: Not Given Lorazepam (Ativan Injection -) 2 mg IVPUSH TID [facility] Last Admin: 06/22/18 05:41 Dose: 2 mg Nystatin (Mycostatin Ointment -) 1 applic TP BID [facility] Last Admin: 06/21/18 22:16 Dose: 1 applic Pantoprazole Sodium (Protonix Iv) 20 mg IVPUSH DAILY [facility] Last Admin: 06/22/18 10:13 Dose: 20 mg Scopolamine HBr (Transderm-Scop -) 1 patch TD Q3D@1000 [facility] Senna (Senna -) 2 tab PO DAILY [facility] Last Admin: 06/22/18 10:11 Dose: Not Given Laboratory Results - last 24 hr 06/22/18 06/22/18 07:25 07:25 WBC 10.6 H RBC 2.65 L Hgb 9.4 L Hct 27.3 L MCV 102.9 H MCH 35.6 H MCHC 34.6 RDW 14.9 Plt Count MPV 8.1 D Absolute Neuts (auto) 9.0 H Neutrophils % 85.3 H Neutrophils % (Manual) 91.0 H Band Neutrophils % 0.0 Lymphocytes % 7.2 L D Lymphocytes % (Manual) 6.0 L Monocytes % 5.0 Monocytes % (Manual) 2 L Eosinophils % 2.4 Eosinophils % (Manual) 0.0 Basophils % 0.1 Basophils % (Manual) 0.0 Myelocytes % (Man) 1 Promyelocytes % (Man) 0 Blast Cells % (Manual) 0 Nucleated RBC % 0 Metamyelocytes 0 Hypochromia 2+ Platelet Estimate Normal Polychromasia 3+ Poikilocytosis 3+ Anisocytosis 3+ Microcytosis 3+ Macrocytosis 0 Sodium 137 Potassium 3.9 Chloride 104 Carbon Dioxide 28 Anion Gap 5 L BUN 9 Creatinine 0.3 L Creat Clearance w eGFR > 60 Random Glucose 94 Calcium 8.5 Phosphorus 2.0 L Magnesium 1.9 Microbiology 06/20/18 17:00 Urine - Urine - Catheterized Urine Culture - Final NO GROWTH OBTAINED 06/20/18 16:00 Blood - Peripheral Venous Blood Culture - Preliminary NO GROWTH OBTAINED AFTER 24 HOURS, INCUBATION TO CONTINUE FOR 4 DAYS. 06/20/18 15:20 Blood - Peripheral Venous Blood Culture - Preliminary NO GROWTH OBTAINED AFTER 24 HOURS, INCUBATION TO CONTINUE FOR 4 DAYS. 06/12/18 20:30 Blood - Peripheral Venous Blood Culture - Final NO GROWTH AFTER 5 DAYS INCUBATION 06/12/18 17:00 Blood - Peripheral Venous Blood Culture - Final NO GROWTH AFTER 5 DAYS INCUBATION 06/09/18 18:00 Blood - Peripheral Venous Blood Culture - Final NO GROWTH AFTER 5 DAYS INCUBATION 06/09/18 17:30 Blood - Peripheral Venous Blood Culture - Final NO GROWTH AFTER 5 DAYS INCUBATION 06/13/18 04:10 Urine - Urine - Catheterized Urine Culture - Final NO GROWTH OBTAINED 06/13/18 04:10 Urine For Antigen Detection Legionella Antigen - Final 06/13/18 04:10 Urine For Antigen Detection Streptococcus pneumoniae Antigen (M - Final 06/09/18 22:59 Urine - Urine - Catheterized Urine Culture - Final NO GROWTH OBTAINED 06/10/18 14:30 Nasopharyngeal Swab Influenza Types A,B Antigen - Final 06/10/18 14:30 Nasopharyngeal Swab - Final ASSESSMENT AND PLAN: 52 yom with PMHx of mental retardation, cerebral palsy with spastic quadriplegia , scoliosis, epilepsy(last seizure activity February of 2017, currently receiving diazepam 5 mg 3 tabs po BID and Keppra 500 mg BID), b/l foot contractures, 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 Zosyn day 13, vanco day 7 Discuss with ID. Blood cx neg so far. GI consulted for possible PEG, likely once respiratory status stabilizes. Strict NPO for now. Pulmonary input appreciated. Add scopolamine patch. Speech/swallow input noted. On Clinimix currently. Aspiration precautions. Family agreable to PEG placement. Unable to take PO meds. ATivan IV TID while NPO given h/o seizures when tapered off benzos. Replete phos. DVTPPX dispo pending clinical improvement. Close respiratory status monitoring for now. Plan discussed with aide at bedside,all questions answered.
[2018-06-22] MEDS ORDERED: SODIUM PHOSPHATE - 30 MM in DEXTROSE 5%-WATER - 500 ML IVPB ONE (14:41)
[2018-06-22] MEDS: NYSTATIN 100000 UNIT/GM TOPICAL OINTMENT 15 GM TUBE TP SCH ×2 (15:08→22:19)
[2018-06-22] MEDS: VANCOMYCIN 1,500 MG in DEXTROSE 5%-WATER - 500 ML IVPB SCH (15:41)
[2018-06-22] MEDS ORDERED: PT OWN MED DRAWER 7, Y5N ONE (19:39)
[2018-06-22] MEDS: BISACODYL 10 MG SUPP.RECT RC PRN (23:25)
[2018-06-23] MEDS ORDERED: PIPERACILLIN/TAZOBACTAM 3.375 GM VIAL IVPB ONE ×2 (01:47→10:00)
[2018-06-23] MEDS ORDERED: DEXTROSE 5%-WATER - 50 ML IVPB ONE ×2 (01:47→10:00)
[2018-06-23] MEDS: PIPERACILLIN/TAZOB 3.375 GM 3.375 GM in DEXTROSE 5%-WATER - 50 ML IVPB SCH ×2 (01:50→10:39)
[2018-06-23] MEDS: HEPARIN NA (PORCINE) 5,000 UNITS/ML 1ML VIAL SQ SCH (06:09)
[2018-06-23] MEDS: LORazepam 2 MG/ML SDV VIAL IVPUSH SCH ×3 (06:09→21:47)
[2018-06-23] MEDS: BACLOFEN 10 MG TABLET (FP) PO SCH ×3 (06:10→21:27)
[2018-06-23] MEDS: AMINO ACIDS 4.25%/D5W 1,000 ML IV SCH ×2 (06:10→20:30)
[2018-06-23 08:01] LABS: BASO % 0.3 % (0-2.0); EOS % 2.9 % (0-4.5); HEMATOCRIT 25.1 % (32.4-45.2); HEMOGLOBIN 9.6 GM/dL (10.7-15.3); LYMPH % 6.4 % (8-40); MCH 40.2 pg (25.7-33.7); MCHC 38.2 g/dl (32.0-36.0); MEAN CELL VOLUME 105.2 fl (80-96); MEAN PLT VOLUME 7.8 fl (7.5-11.1); MONO % 8.3 % (3.8-10.2); NEUT % 82.1 % (42.8-82.8); PLATELET COUNT 327 K/MM3 (134-434); RBC 2.39 M/mm3 (3.60-5.2); RDW 14.7 % (11.6-15.6); WHITE BLOOD COUNT 7.8 K/mm3 (4.0-10.0)
--- NOTE | 2018-06-23 08:11 | PN ---
Teaching Attending Note Name of Resident: Pedro Morejon ATTENDING PHYSICIAN STATEMENT I saw and evaluated the patient. I reviewed the resident's note and discussed the case with the resident. I agree with the resident's findings and plan as documented with exceptions below. SUBJECTIVE: Patient seen and examined. non verbal, unable to do ROS. OBJECTIVE: Vital Signs Period Temp Pulse Resp BP Sys/Ascencio Pulse Ox Last 24 Hr 100.4 F-102.6 F 58-110 18-22 112-136/66-91 100-100 Intake & Output 06/20/18 06/21/18 06/22/18 06/23/18 23:59 23:59 23:59 23:59 Intake Total 450 011 2269 750 Output Total 10 Balance 459 114 0147 750 General: still with tachypnea, overall unchanged Chest: poor effort, scattered rhonchi, decreased breath sounds more left base to mid chest Abdomen: soft, ND, NT, rash groin and axially region Extremities: contractures Active Medications Acetaminophen (Tylenol Suppository -) 650 mg [place] Q6H PRN PRN Reason: FEVER Last Admin: 06/22/18 18:06 Dose: 650 mg Albuterol Sulfate (Ventolin 0.083% Nebulizer Soln -) 1 amp NEB Q4H PRN PRN Reason: SHORT OF BREATH/WHEEZING Last Admin: 06/21/18 23:10 Dose: 1 amp Albuterol/Ipratropium (Duoneb -) 1 amp NEB RQID ON [facility] OF [facility] Last Admin: 06/22/18 20:09 Dose: 1 amp Baclofen (Lioresal -) 10 mg PO TID [facility] Last Admin: 06/23/18 06:10 Dose: Not Given Bisacodyl (Dulcolax Suppository -) 10 mg RC DAILY PRN PRN Reason: CONSTIPATION Last Admin: 06/22/18 23:25 Dose: 10 mg Calcium Carbonate/Cholecalciferol (Os-Hitesh 500+D -) 1 tab PO BID [facility] Last Admin: 06/22/18 22:17 Dose: Not Given Chlorhexidine Gluconate (Peridex -) 30 ml MM BID [facility] Last Admin: 06/22/18 22:17 Dose: Not Given Cholecalciferol (Vitamin D3 -) 400 unit PO DAILY [facility] Last Admin: 06/22/18 10:11 Dose: Not Given Heparin Sodium (Porcine) (Heparin -) 5,000 unit SQ TID [facility] Last Admin: 06/23/18 06:09 Dose: 5,000 unit Piperacillin Sod/Tazobactam (Sod 3.375 gm/ Dextrose) 50 mls @ 100 mls/hr IVPB Q8H-IV [facility]; Protocol Last Admin: 06/23/18 01:50 Dose: 100 mls/hr Amino Acids (Clinimix -) 1,000 mls @ 42 mls/hr IV Q12H [facility] Last Admin: 06/23/18 06:10 Dose: Not Given Vancomycin HCl 1,500 mg/ (Dextrose) 500 mls @ 250 mls/hr IVPB Q24H [facility]; Protocol Last Admin: 06/22/18 15:41 Dose: 250 mls/hr Levetiracetam (Keppra Injection -) 500 mg IVPB BID [facility] Last Admin: 06/22/18 22:18 Dose: 500 mg Loratadine (Claritin -) 10 mg PO DAILY [facility] Last Admin: 06/22/18 10:10 Dose: Not Given Lorazepam (Ativan Injection -) 2 mg IVPUSH TID [facility] Last Admin: 06/23/18 06:09 Dose: 2 mg Nystatin (Mycostatin Ointment -) 1 applic TP BID [facility] Last Admin: 06/22/18 22:19 Dose: 1 applic Pantoprazole Sodium (Protonix Iv) 20 mg IVPUSH DAILY [facility] Last Admin: 06/22/18 10:13 Dose: 20 mg Scopolamine HBr (Transderm-Scop -) 1 patch TD Q3D@1000 [facility] Last Admin: 06/22/18 15:08 Dose: 1 patch Senna (Senna -) 2 tab PO DAILY [facility] Last Admin: 06/22/18 10:11 Dose: Not Given Microbiology 06/20/18 16:00 Blood - Peripheral Venous Blood Culture - Preliminary NO GROWTH OBTAINED AFTER 48 HOURS, INCUBATION TO CONTINUE FOR 3 DAYS. 06/20/18 15:20 Blood - Peripheral Venous Blood Culture - Preliminary NO GROWTH OBTAINED AFTER 48 HOURS, INCUBATION TO CONTINUE FOR 3 DAYS. 06/20/18 17:00 Urine - Urine - Catheterized Urine Culture - Final NO GROWTH OBTAINED 06/12/18 20:30 Blood - Peripheral Venous Blood Culture - Final NO GROWTH AFTER 5 DAYS INCUBATION 06/12/18 17:00 Blood - Peripheral Venous Blood Culture - Final NO GROWTH AFTER 5 DAYS INCUBATION 06/09/18 18:00 Blood - Peripheral Venous Blood Culture - Final NO GROWTH AFTER 5 DAYS INCUBATION 06/09/18 17:30 Blood - Peripheral Venous Blood Culture - Final NO GROWTH AFTER 5 DAYS INCUBATION 06/13/18 04:10 Urine - Urine - Catheterized Urine Culture - Final NO GROWTH OBTAINED 06/13/18 04:10 Urine For Antigen Detection Legionella Antigen - Final 06/13/18 04:10 Urine For Antigen Detection Streptococcus pneumoniae Antigen (M - Final 06/09/18 22:59 Urine - Urine - Catheterized Urine Culture - Final NO GROWTH OBTAINED 06/10/18 14:30 Nasopharyngeal Swab Influenza Types A,B Antigen - Final 06/10/18 14:30 Nasopharyngeal Swab - Final CXR limited but suspected worsening LLL infiltrate CT chest reviewed by me looks large left pleural effusion, awaiting official read by Dr. 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 Discussed with Dr. Lockhart/Dr. Cruz. PLan for US guided thoracentesis +/- Chest tube insertion based on pleural fluid , send pleural fluid studies. Discussed with Dr. Martinez, plan to change to meropenem/vancomycin. zosyn day 15 and vanco day 9 today, monitor vanco levels. Scopolamine patch to possibly decrease secretions and aspiration. Blood cx neg so far. Strict NPO for now. Will need to consider TPN if prolonged NPO anticipated. Speech/swallow input noted. On Clinimix currently. Aspiration precautions. Family agreable to PEG placement. GI consulted for possible PEG, likely once respiratory status stabilizes. Unable to take PO meds. ATivan IV TID while NPO given h/o seizures when tapered off benzos. Nystatin cream. Replete phos prn. DVTPPX dispo pending clinical improvement. Close respiratory status monitoring for now. Plan discussed with aide at bedside,all questions answered. Total time spent including patient visit, discussion with RN, aide and cordination of care with Dr. Lockhart, Dr. Martinez, Dr. Cruz 40 min.
[2018-06-23 08:19] LABS: ANION GAP 7 MMOL/L (8-16); BLOOD UREA NITROGEN 7 mg/dL (7-18); CALCIUM 8.1 mg/dL (8.5-10.1); CHLORIDE 99 mmol/L (98-107); CO2 30 mmol/L (21-32); CREATININE 0.4 mg/dL (0.55-1.3); GLUCOSE,RANDOM 96 mg/dL (74-106); MAGNESIUM 1.9 mg/dL (1.8-2.4); PHOSPHOROUS 3.3 mg/dL (2.5-4.9); POTASSIUM 3.6 mmol/L (3.5-5.1); SODIUM 137 mmol/L (136-145)
[2018-06-23] MEDS: ALBUTEROL SO4 2.5/IPRATROPIUM 0.5 INH SOL 3 ML VIAL.NEB. NEB SCH ×4 (08:41→19:45)
--- NOTE | 2018-06-23 09:44 | PN ---
Physical Exam: SUBJECTIVE: Patient seen and examined this AM. Resting comfortably in bed, audible gurgling noted. As per aide, patient is not currently at her baseline, she is less interactive and not smiling as she regularly does. Aide also reports a rash that has begun forming in her groin region that spreads to underneath around her butt as well. OBJECTIVE: Vital Signs Period Temp Pulse Resp BP Sys/Ascencio Pulse Ox Last 24 Hr 100.4 F-102.6 F 58-110 18-22 112-136/66-91 100 GENERAL: Awake,nonverbal, in no acute distress HEAD: Microcephalic, atraumatic. EYES: PERRL, no scleral icterus EARS, NOSE, THROAT: oropharynx with mucus secretions. Moist mucous membranes. LUNGS: Rhonchi diffusely, expiratory wheezes HEART: Regular rate and rhythm, normal S1 and S2 without murmur ABDOMEN: Soft, nontender to palpation, normoactive bowel sounds MUSCULOSKELETAL: Severe levoscoliosis EXTREMITIES: Contracted, trace dependent edema in b/l UE SKIN: Erythematous rash on left groin, perivaginal area, and continues around to perianal region Laboratory Results - last 24 hr 06/22/18 06/23/18 06/23/18 07:25 07:00 07:00 WBC 7.8 RBC 2.39 L Hgb 9.6 L Hct 25.1 L MCV 105.2 H MCH 40.2 H D MCHC 38.2 H RDW 14.7 Plt Count 327 MPV 7.8 Absolute Neuts (auto) 6.4 Neutrophils % 82.1 Neutrophils % (Manual) 91.0 H Band Neutrophils % 0.0 Lymphocytes % 6.4 L Lymphocytes % (Manual) 6.0 L Monocytes % 8.3 Monocytes % (Manual) 2 L Eosinophils % 2.9 Eosinophils % (Manual) 0.0 Basophils % 0.3 Basophils % (Manual) 0.0 Myelocytes % (Man) 1 Promyelocytes % (Man) 0 Blast Cells % (Manual) 0 Nucleated RBC % 0 Metamyelocytes 0 Hypochromia 2+ Platelet Estimate Normal Polychromasia 3+ Poikilocytosis 3+ Anisocytosis 3+ Microcytosis 3+ Macrocytosis 0 Sodium 137 Potassium 3.6 Chloride 99 Carbon Dioxide 30 Anion Gap 7 L BUN 7 Creatinine 0.4 L Creat Clearance w eGFR > 60 Random Glucose 96 Calcium 8.1 L Phosphorus 3.3 Magnesium 1.9 Active Medications Generic Name Dose Route Start Last Admin Trade Name Freq PRN Reason Stop Dose Admin Acetaminophen 650 mg 06/21/18 08:58 06/22/18 18:06 Tylenol Suppository - [place] 650 mg Q6H PRN Administration FEVER Albuterol Sulfate 1 amp 06/21/18 11:00 06/21/18 23:10 Ventolin 0.083% Nebulizer Soln - NEB 1 amp Q4H PRN Administration SHORT OF BREATH/WHEEZING Albuterol/Ipratropium 1 amp 06/21/18 12:00 06/23/18 08:41 Duoneb - NEB 1 amp RQID [facility] Administration Baclofen 10 mg 06/10/18 08:00 06/23/18 06:10 Lioresal - PO Not Given TID [facility] Bisacodyl 10 mg 06/10/18 14:38 06/22/18 23:25 Dulcolax Suppository - RC 10 mg DAILY PRN Administration CONSTIPATION Calcium Carbonate/Cholecalciferol 1 tab 06/10/18 22:00 06/22/18 22:17 Os-Hitesh 500+D - PO Not Given BID [facility] Chlorhexidine Gluconate 30 ml 06/10/18 22:00 06/22/18 22:17 Peridex - MM Not Given BID [facility] Cholecalciferol 400 unit 06/11/18 10:00 06/22/18 10:11 Vitamin D3 - PO Not Given DAILY [facility] Heparin Sodium (Porcine) 5,000 unit 06/10/18 22:00 06/23/18 06:09 Heparin - SQ 5,000 unit TID [facility] Administration Piperacillin Sod/Tazobactam 50 mls @ 100 mls/hr 06/10/18 18:00 06/23/18 01:50 Sod 3.375 gm/ Dextrose IVPB 100 mls/hr Q8H-IV [facility] Administration Protocol Amino Acids 1,000 mls @ 42 mls/hr 06/20/18 15:45 06/23/18 06:10 Clinimix - IV Not Given Q12H [facility] Vancomycin HCl 1,500 mg/ 500 mls @ 250 mls/hr 06/21/18 15:00 06/22/18 15:41 Dextrose IVPB 250 mls/hr Q24H [facility] Administration Protocol Levetiracetam 500 mg 06/10/18 22:00 06/22/18 22:18 Keppra Injection - IVPB 500 mg BID [facility] Administration Loratadine 10 mg 06/10/18 14:45 06/22/18 10:10 Claritin - PO Not Given DAILY [facility] Lorazepam 2 mg 06/21/18 14:00 06/23/18 06:09 Ativan Injection - IVPUSH 2 mg TID [facility] Administration Nystatin 1 applic 06/21/18 22:00 06/22/18 22:19 Mycostatin Ointment - TP 1 applic BID [facility] Administration Pantoprazole Sodium 20 mg 06/22/18 10:00 06/22/18 10:13 Protonix Iv IVPUSH 20 mg DAILY [facility] Administration Scopolamine HBr 1 patch 06/22/18 13:45 06/22/18 15:08 Transderm-Scop - TD 1 patch Q3D@1000 [facility] Administration Senna 2 tab 06/11/18 10:00 06/22/18 10:11 Senna - PO Not Given DAILY [facility] ASSESSMENT/PLAN: 52 yo Female with PMH Cerebral Palsy with spastic quadriplegia, Mental Retardation, Epilepsy, Scoliosis presented from [facility]– [place][Note 2] for vomiting followed by high fevers and cough. Sepsis secondary to Aspiration pneumonia vs pneumonitis -Febrile 103.5 on admission, Tachycardic, tachypnic -Fevers improving -Chest CT: RUL congestion suspicious for pneumonia vs pneumonitis -ID consult appreciated Zosyn 3.375 gm Q8 IV, Vancomycin 1 gm IV Daily, case discussed, will likely switch to Meropenem -Ventolin NEBs QID -Pulmonology consult appreciated -Continued fevers, 102 overnight -Repeat blood/urine cultures negative, CXR unchanged -Modified barium swallow noted for possible silent aspiration, recommendation to consider PEG even if just for temporary feeding -Extensive discussion with Pts sister and mother, Family is amenable to PEG insertion if medically necessary for feeding -Family states that pt does better when sitting up in her wheelchair than when lying in bed -GI consulted for evaluation of possible PEG insertion -Still requiring O2 positionally, will attempt to wean off -Scopolamine Patch in attempt to decrease secretions -Repeat Chest CT pending Abdominal Distension - improved -KUB Flat plate - bowel distension concerning for ileus, no obstruction or fecal impaction noted -Feeds held with vomiting and concern for continued aspiration Epilepsy -Keppra 500 mg PO BID switched to IV until tolerates PO -Ativan 2gm IV TID Spasticity -Pt on Baclofen 10 mg TID, holding as not tolerating NGT feeds -Ativan 2 gm IV TID DVT Prophylaxis -Heparin 5000 units SQ TID FEN -Fluids: Clinimix @ 42 cc/hr -Electrolytes: Low Mag, replete, BMP in AM -Nutrition: NPO, hold tube feeds, Clinimix Disposition Med/Surg Visit type - Emergency Visit Emergency Visit: Yes ED Registration Date: 06/09/18 Care time: The patient presented to the Emergency Department on the above date and was hospitalized for further evaluation of their emergent condition. - New Patient This patient is new to me today: No - Critical Care Critical Care patient: No
[2018-06-23] MEDS: LORATADINE 10 MG TABLET PO SCH (10:38)
[2018-06-23] MEDS: levETIRAcetam 500 MG/5 ML INJECTION VIAL IVPB SCH ×2 (10:38→21:47)
[2018-06-23] MEDS: PANTOPRAZOLE SODIUM 40 MG VIAL IVPUSH SCH (10:38)
[2018-06-23] MEDS: CALCIUM 500MG/VIT-D 200 UNITS COMBO TABLET (FP) PO SCH ×2 (10:38→21:28)
[2018-06-23] MEDS: CHLORHEXIDINE GLUCONATE 0.12% 15ML CUP MM SCH ×2 (10:39→21:28)
[2018-06-23] MEDS: CHOLECALCIFEROL (VITAMIN D3) 400 UNIT TABLET (FP) PO SCH (10:39)
[2018-06-23] MEDS: SENNOSIDES 8.6MG TABLET (FP) PO SCH (10:39)
[2018-06-23] MEDS: ACETAMINOPHEN 325 MG SUPP.RECT PR PRN (10:42)
[2018-06-23] MEDS: NYSTATIN 100000 UNIT/GM TOPICAL OINTMENT 15 GM TUBE TP SCH ×2 (10:43→21:47)
--- NOTE | 2018-06-23 10:51 | PN ---
Progress Note (short form) - Note Progress Note: PULMONARY Remains febrile. Pt nonverbal. Vital Signs Period Temp Pulse Resp BP Sys/Ascencio Pulse Ox Last 24 Hr 100.4 F-102.6 F 99-110 18-21 114-136/71-91 100 Gen: mildly tachypneic at rest Heart: RRR Lung: scattered rhonchi Abd: soft, nontender Ext: no edema CBC, BMP 06/23/18 07:00 06/23/18 07:00 Active Medications Acetaminophen (Tylenol Suppository -) 650 mg [place] Q6H PRN PRN Reason: FEVER Last Admin: 06/23/18 10:42 Dose: 650 mg Albuterol Sulfate (Ventolin 0.083% Nebulizer Soln -) 1 amp NEB Q4H PRN PRN Reason: SHORT OF BREATH/WHEEZING Last Admin: 06/21/18 23:10 Dose: 1 amp Albuterol/Ipratropium (Duoneb -) 1 amp NEB RQID [facility] Last Admin: 06/23/18 08:41 Dose: 1 amp Baclofen (Lioresal -) 10 mg PO TID [facility] Last Admin: 06/23/18 06:10 Dose: Not Given Bisacodyl (Dulcolax Suppository -) 10 mg RC DAILY PRN PRN Reason: CONSTIPATION Last Admin: 06/22/18 23:25 Dose: 10 mg Calcium Carbonate/Cholecalciferol (Os-Hitesh 500+D -) 1 tab PO BID [facility] Last Admin: 06/23/18 10:38 Dose: Not Given Chlorhexidine Gluconate (Peridex -) 30 ml MM BID [facility] Last Admin: 06/23/18 10:39 Dose: Not Given Cholecalciferol (Vitamin D3 -) 400 unit PO DAILY [facility] Last Admin: 06/23/18 10:39 Dose: Not Given Heparin Sodium (Porcine) (Heparin -) 5,000 unit SQ TID [facility] Last Admin: 06/23/18 06:09 Dose: 5,000 unit Piperacillin Sod/Tazobactam (Sod 3.375 gm/ Dextrose) 50 mls @ 100 mls/hr IVPB Q8H-IV [facility]; Protocol Last Admin: 06/23/18 10:39 Dose: 100 mls/hr Amino Acids (Clinimix -) 1,000 mls @ 42 mls/hr IV Q12H [facility] Last Admin: 06/23/18 06:10 Dose: Not Given Vancomycin HCl 1,500 mg/ (Dextrose) 500 mls @ 250 mls/hr IVPB Q24H [facility]; Protocol Last Admin: 06/22/18 15:41 Dose: 250 mls/hr Levetiracetam (Keppra Injection -) 500 mg IVPB BID [facility] Last Admin: 06/23/18 10:38 Dose: 500 mg Loratadine (Claritin -) 10 mg PO DAILY [facility] Last Admin: 06/23/18 10:38 Dose: Not Given Lorazepam (Ativan Injection -) 2 mg IVPUSH TID [facility] Last Admin: 06/23/18 06:09 Dose: 2 mg Nystatin (Mycostatin Ointment -) 1 applic TP BID [facility] Last Admin: 06/23/18 10:43 Dose: 1 applic Pantoprazole Sodium (Protonix Iv) 20 mg IVPUSH DAILY [facility] Last Admin: 06/23/18 10:38 Dose: 20 mg Scopolamine HBr (Transderm-Scop -) 1 patch TD Q3D@1000 [facility] Last Admin: 06/22/18 15:08 Dose: 1 patch Senna (Senna -) 2 tab PO DAILY [facility] Last Admin: 06/23/18 10:39 Dose: Not Given A/P Pneumonia likely Aspiration Sepsis Seizure Disorder Cerebral Palsy Mental Retardation - continue antibiotics - aspiration precautions - continue PPN - will likely need PEG placement - DVT prophylaxis
[2018-06-23 12:24] LABS: ARTERIAL BLD GAS O2 SATURATION 95.2 % (90-98.9); ARTERIAL BLOOD GAS PCO2 39.5 mmHg (35-45); ARTERIAL BLOOD GAS PO2 69.9 mmHg (80-100); ARTERIAL BLOOD GAS pH 7.47 (7.35-7.45)
[2018-06-23 12:26] LABS: ALLENS TEST POSITIVE
[2018-06-23 12:50] LABS: ANISOCYTOSIS 2+; MACROCYTOSIS 2+
[2018-06-23] MEDS ORDERED: MAGNESIUM SULF 50% (8.12 MEQ/2 ML-1 GM VIAL) IVPB ONE ×2 (13:56→16:00)
[2018-06-23] MEDS ORDERED: PT OWN MED DRAWER 7, Y5N ONE (14:20)
[2018-06-23] MEDS: VANCOMYCIN 1,500 MG in DEXTROSE 5%-WATER - 500 ML IVPB SCH (14:24)
[2018-06-23] MEDS ORDERED: MAGNESIUM 1GM/D5W - 1 GM/100 ML IVPB IVPB ONE (15:00)
--- NOTE | 2018-06-23 15:28 | PN ---
Progress Note, Physician History of Present Illness: continues to spike fever patient using accessory muscles of resp on face mask - Current Medication List Current Medications: Active Medications Acetaminophen (Tylenol Suppository -) 650 mg [place] Q6H PRN PRN Reason: FEVER Last Admin: 06/23/18 10:42 Dose: 650 mg Albuterol Sulfate (Ventolin 0.083% Nebulizer Soln -) 1 amp NEB Q4H PRN PRN Reason: SHORT OF BREATH/WHEEZING Last Admin: 06/21/18 23:10 Dose: 1 amp Albuterol/Ipratropium (Duoneb -) 1 amp NEB RQID [facility] Last Admin: 06/23/18 12:05 Dose: 1 amp Baclofen (Lioresal -) 10 mg PO TID [facility] Last Admin: 06/23/18 14:25 Dose: Not Given Bisacodyl (Dulcolax Suppository -) 10 mg RC DAILY PRN PRN Reason: CONSTIPATION Last Admin: 06/22/18 23:25 Dose: 10 mg Calcium Carbonate/Cholecalciferol (Os-Hitesh 500+D -) 1 tab PO BID [facility] Last Admin: 06/23/18 10:38 Dose: Not Given Chlorhexidine Gluconate (Peridex -) 30 ml MM BID [facility] Last Admin: 06/23/18 10:39 Dose: Not Given Cholecalciferol (Vitamin D3 -) 400 unit PO DAILY [facility] Last Admin: 06/23/18 10:39 Dose: Not Given Piperacillin Sod/Tazobactam (Sod 3.375 gm/ Dextrose) 50 mls @ 100 mls/hr IVPB Q8H-IV [facility]; Protocol Last Admin: 06/23/18 10:39 Dose: 100 mls/hr Amino Acids (Clinimix -) 1,000 mls @ 42 mls/hr IV Q12H [facility] Last Admin: 06/23/18 06:10 Dose: Not Given Vancomycin HCl 1,500 mg/ (Dextrose) 500 mls @ 250 mls/hr IVPB Q24H [facility]; Protocol Last Admin: 06/23/18 14:24 Dose: 250 mls/hr Magnesium Sulfate/Dextrose (Magnesium 1gm/D5w -) 1 gm in 100 mls @ 100 mls/hr IVPB ONCE ONE Stop: 06/23/18 15:59 Levetiracetam (Keppra Injection -) 500 mg IVPB BID [facility] Last Admin: 06/23/18 10:38 Dose: 500 mg Loratadine (Claritin -) 10 mg PO DAILY [facility] Last Admin: 06/23/18 10:38 Dose: Not Given Lorazepam (Ativan Injection -) 2 mg IVPUSH TID [facility] Last Admin: 06/23/18 14:24 Dose: 2 mg Nystatin (Mycostatin Ointment -) 1 applic TP BID [facility] Last Admin: 06/23/18 10:43 Dose: 1 applic Pantoprazole Sodium (Protonix Iv) 20 mg IVPUSH DAILY [facility] Last Admin: 06/23/18 10:38 Dose: 20 mg Scopolamine HBr (Transderm-Scop -) 1 patch TD Q3D@1000 [facility] Last Admin: 06/22/18 15:08 Dose: 1 patch Senna (Senna -) 2 tab PO DAILY [facility] Last Admin: 06/23/18 10:39 Dose: Not Given - Objective Vital Signs: Vital Signs Temperature 102.2 F H 06/23/18 14:00 Pulse Rate 127 H 06/23/18 14:00 Respiratory Rate 21 H 06/23/18 14:00 Blood Pressure 129/74 06/23/18 14:00 O2 Sat by Pulse Oximetry (%) 100 06/22/18 21:00 Constitutional: Yes: Mild Distress, Other Cardiovascular: Yes: Regular Rate and Rhythm Respiratory: Yes: Poor Air Entry, Rhonchi, Other (on face mask) Gastrointestinal: Yes: Normal Bowel Sounds, Soft Musculoskeletal: Yes: WNL Extremities: Yes: Other (contracted) Neurological: Yes: Alert, Other Labs: CBC, BMP 06/23/18 07:00 06/23/18 07:00 INR, PTT INR 1.14 (0.83-1.09) H 06/10/18 06:00 Assessment/Plan Problem List - Problems (1) Pneumonia Code(s): J18.9 - PNEUMONIA, UNSPECIFIED ORGANISM (2) Aspiration pneumonia Code(s): J69.0 - PNEUMONITIS DUE TO INHALATION OF FOOD AND VOMIT (3) Fever Code(s): R50.9 - FEVER, UNSPECIFIED (4) Altered mental status Code(s): R41.82 - ALTERED MENTAL STATUS, UNSPECIFIED Qualifiers: Altered mental status type: unspecified Qualified Code(s): R41.82 - Altered mental status, unspecified (5) Cerebral palsy Code(s): G80.9 - CEREBRAL PALSY, UNSPECIFIED (6) Constipation Code(s): K59.00 - CONSTIPATION, UNSPECIFIED (7) Functional quadriplegia Code(s): R53.2 - FUNCTIONAL QUADRIPLEGIA (8) Mental retardation Code(s): F79 - UNSPECIFIED INTELLECTUAL DISABILITIES (9) Seizures Code(s): R56.9 - UNSPECIFIED CONVULSIONS plan continue abx will change to meropenam monitor for resp status if detoriates might need intubate=ion resend cx if she spikes tomorrow if she continues to spike will add levaquin
--- NOTE | 2018-06-23 17:41 | PN ---
Progress Note (short form) - Note Progress Note: Patient seen and evaluated by ICU team. Hemodynamically stable, blood gases are reassuring. Recommend steroids and bronchodilators. Continue to monitor on med- surg floors.
[2018-06-23 17:54] LABS: ARTERIAL BLD GAS O2 SATURATION 93.6 % (90-98.9); ARTERIAL BLOOD GAS BASE EXCESS 6.5 meq/l (-2-2); ARTERIAL BLOOD GAS PCO2 40.5 mmHg (35-45); ARTERIAL BLOOD GAS PO2 63.4 mmHg (80-100); ARTERIAL BLOOD GAS pH 7.49 (7.35-7.45)
[2018-06-23] MEDS: MEROPENEM 1 GM in DEXTROSE 5%-WATER 100 ML IVPB SCH (18:00)
[2018-06-23 18:41] LABS: ALLENS TEST POSITIVE
[2018-06-24] MEDS: ACETAMINOPHEN 325 MG SUPP.RECT PR PRN ×2 (01:47→22:12)
[2018-06-24] MEDS: MEROPENEM 1 GM in DEXTROSE 5%-WATER 100 ML IVPB SCH ×3 (01:47→17:43)
[2018-06-24] MEDS: BACLOFEN 10 MG TABLET (FP) PO SCH ×3 (05:43→22:10)
[2018-06-24] MEDS: LORazepam 2 MG/ML SDV VIAL IVPUSH SCH ×3 (05:44→22:10)
[2018-06-24] MEDS: AMINO ACIDS 4.25%/D5W 1,000 ML IV SCH ×2 (05:46→16:55)
[2018-06-24] MEDS: HEPARIN NA (PORCINE) 5,000 UNITS/ML 1ML VIAL SQ SCH (07:38)
[2018-06-24 08:37] LABS: HEMATOCRIT 21.9 % (32.4-45.2); HEMOGLOBIN 9.1 GM/dL (10.7-15.3); MCHC 41.5 g/dl (32.0-36.0); MEAN CELL VOLUME 107.4 fl (80-96); MEAN PLT VOLUME 7.7 fl (7.5-11.1); PLATELET COUNT 337 K/MM3 (134-434); RBC 2.04 M/mm3 (3.60-5.2); RDW 15.1 % (11.6-15.6); WHITE BLOOD COUNT 8.5 K/mm3 (4.0-10.0)
[2018-06-24 08:41] LABS: MCH 44.5 pg (25.7-33.7)
[2018-06-24] MEDS: ALBUTEROL SO4 2.5/IPRATROPIUM 0.5 INH SOL 3 ML VIAL.NEB. NEB SCH ×4 (08:51→21:00)
[2018-06-24 08:59] LABS: ANION GAP 4 MMOL/L (8-16); BLOOD UREA NITROGEN 8 mg/dL (7-18); CALCIUM 8.5 mg/dL (8.5-10.1); CHLORIDE 99 mmol/L (98-107); CO2 31 mmol/L (21-32); CREATININE 0.4 mg/dL (0.55-1.3); GLUCOSE,RANDOM 93 mg/dL (74-106); MAGNESIUM 2.2 mg/dL (1.8-2.4); PHOSPHOROUS 1.9 mg/dL (2.5-4.9); SODIUM 134 mmol/L (136-145)
[2018-06-24] MEDS: levETIRAcetam 500 MG/5 ML INJECTION VIAL IVPB SCH ×2 (10:40→22:10)
[2018-06-24] MEDS: PANTOPRAZOLE SODIUM 40 MG VIAL IVPUSH SCH (10:42)
[2018-06-24] MEDS: SCOPOLAMINE HYDROBROMIDE 1 PATCH PATCH.TD72 TD SCH ×3 (10:44→11:24)
[2018-06-24] MEDS: LORATADINE 10 MG TABLET PO SCH (10:54)
[2018-06-24] MEDS: SENNOSIDES 8.6MG TABLET (FP) PO SCH (10:54)
[2018-06-24] MEDS: CHOLECALCIFEROL (VITAMIN D3) 400 UNIT TABLET (FP) PO SCH (10:54)
[2018-06-24] MEDS: CHLORHEXIDINE GLUCONATE 0.12% 15ML CUP MM SCH ×2 (10:54→22:11)
[2018-06-24] MEDS: CALCIUM 500MG/VIT-D 200 UNITS COMBO TABLET (FP) PO SCH ×2 (10:54→22:10)
[2018-06-24] MEDS: NYSTATIN 100000 UNIT/GM TOPICAL OINTMENT 15 GM TUBE TP SCH ×2 (10:55→22:10)
--- NOTE | 2018-06-24 12:23 | PN ---
Progress Note, Physician History of Present Illness: continues to spike fever high grade inspite of broad spectrum abx patient going for pleural tap today family in room spoke wiht family still with resp effort on mask - Current Medication List Current Medications: Active Medications Acetaminophen (Tylenol Suppository -) 650 mg [place] Q6H PRN PRN Reason: FEVER Last Admin: 06/24/18 01:47 Dose: 650 mg Albuterol Sulfate (Ventolin 0.083% Nebulizer Soln -) 1 amp NEB Q4H PRN PRN Reason: SHORT OF BREATH/WHEEZING Last Admin: 06/21/18 23:10 Dose: 1 amp Albuterol/Ipratropium (Duoneb -) 1 amp NEB RQID [facility] Last Admin: 06/24/18 12:15 Dose: 1 amp Baclofen (Lioresal -) 10 mg PO TID [facility] Last Admin: 06/24/18 05:43 Dose: Not Given Bisacodyl (Dulcolax Suppository -) 10 mg RC DAILY PRN PRN Reason: CONSTIPATION Last Admin: 06/22/18 23:25 Dose: 10 mg Calcium Carbonate/Cholecalciferol (Os-Hitesh 500+D -) 1 tab PO BID [facility] Last Admin: 06/24/18 10:54 Dose: Not Given Chlorhexidine Gluconate (Peridex -) 30 ml MM BID [facility] Last Admin: 06/24/18 10:54 Dose: Not Given Cholecalciferol (Vitamin D3 -) 400 unit PO DAILY [facility] Last Admin: 06/24/18 10:54 Dose: Not Given Amino Acids (Clinimix -) 1,000 mls @ 42 mls/hr IV Q12H [facility] Last Admin: 06/24/18 05:46 Dose: 42 mls/hr Vancomycin HCl 1,500 mg/ (Dextrose) 500 mls @ 250 mls/hr IVPB Q24H [facility]; Protocol Last Admin: 06/23/18 14:24 Dose: 250 mls/hr Meropenem 1 gm/ Dextrose 100 mls @ 200 mls/hr IVPB Q8H-IV [facility] Last Admin: 06/24/18 10:40 Dose: 200 mls/hr Levofloxacin (Levaquin 750 Mg Premixed Ivpb -) 750 mg in 150 mls @ 150 mls/hr IVPB DAILY [facility]; Protocol Levetiracetam (Keppra Injection -) 500 mg IVPB BID [facility] Last Admin: 06/24/18 10:40 Dose: 500 mg Loratadine (Claritin -) 10 mg PO DAILY [facility] Last Admin: 06/24/18 10:54 Dose: Not Given Lorazepam (Ativan Injection -) 2 mg IVPUSH TID [facility] Last Admin: 06/24/18 05:44 Dose: 2 mg Nystatin (Mycostatin Ointment -) 1 applic TP BID [facility] Last Admin: 06/24/18 10:55 Dose: 1 applic Pantoprazole Sodium (Protonix Iv) 20 mg IVPUSH DAILY [facility] Last Admin: 06/24/18 10:42 Dose: 20 mg Scopolamine HBr (Transderm-Scop -) 1 patch TD Q72H [facility] Last Admin: 06/24/18 11:24 Dose: 1 patch Senna (Senna -) 2 tab PO DAILY [facility] Last Admin: 06/24/18 10:54 Dose: Not Given - Objective Vital Signs: Vital Signs Temperature 99.7 F H 06/24/18 11:30 Pulse Rate 116 H 06/24/18 08:15 Respiratory Rate 24 H 06/24/18 08:15 Blood Pressure 127/95 06/24/18 08:15 O2 Sat by Pulse Oximetry (%) 97 06/23/18 22:00 Constitutional: Yes: Calm, Mild Distress Cardiovascular: Yes: Regular Rate and Rhythm Respiratory: Yes: Other (on mask tachypnoea) Gastrointestinal: Yes: Normal Bowel Sounds, Soft Musculoskeletal: Yes: WNL Extremities: Yes: Other (tracted) Neurological: Yes: Other Psychiatric: Yes: Other Labs: CBC, BMP 06/24/18 08:05 06/24/18 08:05 INR, PTT INR 1.14 (0.83-1.09) H 06/10/18 06:00 Assessment/Plan Problem List - Problems (1) Pneumonia Code(s): J18.9 - PNEUMONIA, UNSPECIFIED ORGANISM (2) Aspiration pneumonia Code(s): J69.0 - PNEUMONITIS DUE TO INHALATION OF FOOD AND VOMIT (3) Fever Code(s): R50.9 - FEVER, UNSPECIFIED (4) Altered mental status Code(s): R41.82 - ALTERED MENTAL STATUS, UNSPECIFIED Qualifiers: Altered mental status type: unspecified Qualified Code(s): R41.82 - Altered mental status, unspecified (5) Cerebral palsy Code(s): G80.9 - CEREBRAL PALSY, UNSPECIFIED (6) Constipation Code(s): K59.00 - CONSTIPATION, UNSPECIFIED (7) Functional quadriplegia Code(s): R53.2 - FUNCTIONAL QUADRIPLEGIA (8) Mental retardation Code(s): F79 - UNSPECIFIED INTELLECTUAL DISABILITIES (9) Seizures Code(s): R56.9 - UNSPECIFIED CONVULSIONS plan continue abx will add levaquin urine for leg ag ordered for tap today close watch on resp status rest as per the team urine for cx ordered if spikes fever send blood cx
--- NOTE | 2018-06-24 14:00 | PN ---
Teaching Attending Note Name of Resident: Pedro Morejon ATTENDING PHYSICIAN STATEMENT I saw and evaluated the patient. I reviewed the resident's note and discussed the case with the resident. I agree with the resident's findings and plan as documented with exceptions below. SUBJECTIVE: Patient seen and examined. non verbal, unable to assess for ROS. OBJECTIVE: Vital Signs Period Temp Pulse Resp BP Sys/Ascencio Pulse Ox Last 24 Hr 99.7 F-102.2 F 103-127 21-24 102-129/62-95 97 Intake & Output 06/21/18 06/22/18 06/23/18 06/24/18 23:59 23:59 23:59 23:59 Intake Total 678 1478 1650 404 Balance 678 1478 1650 404 General: some tachypnea with coarse rales Chest: scattered coarse rales, with decresaed breath sounds left base, limited exam given lack of co-operation Abdomen:soft, distended, positive bowel sounds but obscured by breath sounds Extremities: in contractures Active Medications Acetaminophen (Tylenol Suppository -) 650 mg [place] Q6H PRN PRN Reason: FEVER Last Admin: 06/24/18 01:47 Dose: 650 mg Albuterol Sulfate (Ventolin 0.083% Nebulizer Soln -) 1 amp NEB Q4H PRN PRN Reason: SHORT OF BREATH/WHEEZING Last Admin: 06/21/18 23:10 Dose: 1 amp Albuterol/Ipratropium (Duoneb -) 1 amp NEB RQID [facility] Last Admin: 06/24/18 12:15 Dose: 1 amp Baclofen (Lioresal -) 10 mg PO TID [facility] Last Admin: 06/24/18 05:43 Dose: Not Given Bisacodyl (Dulcolax Suppository -) 10 mg RC DAILY PRN PRN Reason: CONSTIPATION Last Admin: 06/22/18 23:25 Dose: 10 mg Calcium Carbonate/Cholecalciferol (Os-Hitesh 500+D -) 1 tab PO BID [facility] Last Admin: 06/24/18 10:54 Dose: Not Given Chlorhexidine Gluconate (Peridex -) 30 ml MM BID [facility] Last Admin: 06/24/18 10:54 Dose: Not Given Cholecalciferol (Vitamin D3 -) 400 unit PO DAILY [facility] Last Admin: 06/24/18 10:54 Dose: Not Given Amino Acids (Clinimix -) 1,000 mls @ 42 mls/hr IV Q12H [facility] Last Admin: 06/24/18 05:46 Dose: 42 mls/hr Vancomycin HCl 1,500 mg/ (Dextrose) 500 mls @ 250 mls/hr IVPB Q24H [facility]; Protocol Last Admin: 06/23/18 14:24 Dose: 250 mls/hr Meropenem 1 gm/ Dextrose 100 mls @ 200 mls/hr IVPB Q8H-IV [facility] Last Admin: 06/24/18 10:40 Dose: 200 mls/hr Levofloxacin (Levaquin 750 Mg Premixed Ivpb -) 750 mg in 150 mls @ 150 mls/hr IVPB DAILY [facility]; Protocol Last Admin: 06/24/18 12:29 Dose: 150 mls/hr Levetiracetam (Keppra Injection -) 500 mg IVPB BID [facility] Last Admin: 06/24/18 10:40 Dose: 500 mg Loratadine (Claritin -) 10 mg PO DAILY [facility] Last Admin: 06/24/18 10:54 Dose: Not Given Lorazepam (Ativan Injection -) 2 mg IVPUSH TID [facility] Last Admin: 06/24/18 05:44 Dose: 2 mg Nystatin (Mycostatin Ointment -) 1 applic TP BID [facility] Last Admin: 06/24/18 10:55 Dose: 1 applic Pantoprazole Sodium (Protonix Iv) 20 mg IVPUSH DAILY [facility] Last Admin: 06/24/18 10:42 Dose: 20 mg Scopolamine HBr (Transderm-Scop -) 1 patch TD Q72H [facility] Last Admin: 06/24/18 11:24 Dose: 1 patch Senna (Senna -) 2 tab PO DAILY [facility] Last Admin: 06/24/18 10:54 Dose: Not Given Laboratory Results - last 24 hr 06/23/18 06/23/18 06/24/18 15:35 17:45 08:05 WBC RBC Hgb Hct MCV MCH MCHC RDW Plt Count MPV Anticoagulation Therapy No Result Required. Puncture Site Right radial ABG pH 7.49 H ABG pCO2 at Pt Temp 40.5 ABG pO2 at Pt Temp 63.4 L ABG HCO3 30.1 H ABG O2 Sat (Measured) 93.6 ABG O2 Content 11.9 L ABG Base Excess 6.5 H Kahlil Test Positive O2 Delivery Device No Result Required. Oxygen Flow Rate 1.5l Vent Mode No Result Required. Vent Rate No Result Required. Mechanical Rate No Result Required. Pressure Support Vent No Result Required. Sodium 134 L Potassium 4.0 Chloride 99 Carbon Dioxide 31 Anion Gap 4 L BUN 8 Creatinine 0.4 L Creat Clearance w eGFR > 60 Random Glucose 93 Calcium 8.5 Phosphorus 1.9 L Magnesium 2.2 Vancomycin Pre-Dose 8.0 L 06/24/18 08:05 WBC 8.5 RBC 2.04 L Hgb 9.1 L Hct 21.9 L MCV 107.4 H MCH 44.5 H D MCHC 41.5 H RDW 15.1 Plt Count 337 MPV 7.7 Anticoagulation Therapy Puncture Site ABG pH ABG pCO2 at Pt Temp ABG pO2 at Pt Temp ABG HCO3 ABG O2 Sat (Measured) ABG O2 Content ABG Base Excess Kahlil Test O2 Delivery Device Oxygen Flow Rate Vent Mode Vent Rate Mechanical Rate Pressure Support Vent Sodium Potassium Chloride Carbon Dioxide Anion Gap BUN Creatinine Creat Clearance w eGFR Random Glucose Calcium Phosphorus Magnesium Vancomycin Pre-Dose Microbiology 06/20/18 16:00 Blood - Peripheral Venous Blood Culture - Preliminary NO GROWTH OBTAINED AFTER 72 HOURS, INCUBATION TO CONTINUE FOR 2 DAYS. 06/20/18 15:20 Blood - Peripheral Venous Blood Culture - Preliminary NO GROWTH OBTAINED AFTER 72 HOURS, INCUBATION TO CONTINUE FOR 2 DAYS. 06/20/18 17:00 Urine - Urine - Catheterized Urine Culture - Final NO GROWTH OBTAINED 06/12/18 20:30 Blood - Peripheral Venous Blood Culture - Final NO GROWTH AFTER 5 DAYS INCUBATION 06/12/18 17:00 Blood - Peripheral Venous Blood Culture - Final NO GROWTH AFTER 5 DAYS INCUBATION 06/09/18 18:00 Blood - Peripheral Venous Blood Culture - Final NO GROWTH AFTER 5 DAYS INCUBATION 06/09/18 17:30 Blood - Peripheral Venous Blood Culture - Final NO GROWTH AFTER 5 DAYS INCUBATION 06/13/18 04:10 Urine - Urine - Catheterized Urine Culture - Final NO GROWTH OBTAINED 06/13/18 04:10 Urine For Antigen Detection Legionella Antigen - Final 06/13/18 04:10 Urine For Antigen Detection Streptococcus pneumoniae Antigen (M - Final 06/09/18 22:59 Urine - Urine - Catheterized Urine Culture - Final NO GROWTH OBTAINED 06/10/18 14:30 Nasopharyngeal Swab Influenza Types A,B Antigen - Final 06/10/18 14:30 Nasopharyngeal Swab - Final CT chest results and images reviewed ASSESSMENT AND PLAN: 52 yom with PMHx of mental retardation, cerebral palsy with spastic quadriplegia , scoliosis, epilepsy(last seizure activity February of 2017, currently receiving diazepam 5 mg 3 tabs po BID and Keppra 500 mg BID), b/l foot contractures, 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 Discussed TPN option with familiy, declined central access or TPN but agreable to PEG when medically able to. On clinimix, continue. ID input noted. Meropenem day 2 (after 14 days of zosyn), vanco day 10. Vanco levels noted, repeat today, redose accordingly. Scopolamine patch to possibly decrease secretions and aspiration. Blood cx neg so far. Repeat if recurrent fevers. Strict NPO for now. Aspiration precautions. Possible IR guided PEG placement when medical issues improve. Unable to take PO meds. ATivan IV TID while NPO given h/o seizures when tapered off benzos. Nystatin cream. Replete phos prn. DVTPPX dispo pending clinical improvement. Close respiratory status monitoring for now. ICU input appreciated. Close monitoring for now. Plan discussed with aide at bedside,all questions answered. total time spent including discussion with pulmonary, IR, ID,family and co-ordination of care 45 min.
[2018-06-24 14:46] LABS: URINE APPEARANCE CLEAR; URINE BILIRUBIN NEGATIVE (<2.0 mg/dL); URINE COLOR STRAW; URINE GLUCOSE (UA) NEGATIVE (NEGATIVE); URINE KETONE TRACE (NEGATIVE); URINE LEUK ESTERASE NEGATIVE (NEGATIVE); URINE NITRITE NEGATIVE (NEGATIVE); URINE PROTEIN NEGATIVE (NEGATIVE); URINE UROBILINOGEN NEGATIVE mg/dL (0.2-1.0)
[2018-06-24 15:42] LABS: EPI CELLS RARE /HPF (FEW)
--- NOTE | 2018-06-24 16:05 | PN ---
Physical Exam: SUBJECTIVE: Patient seen and examined this AM. She is resting comfortably and smiling today. Audible gurgling still present all morning as per the aide. OBJECTIVE: Vital Signs Period Temp Pulse Resp BP Sys/Ascencio Pulse Ox Last 24 Hr 99.7 F-101.8 F 103-125 22-24 102-127/62-95 97 GENERAL: Awake,nonverbal, in no acute distress HEAD: Microcephalic, atraumatic. EYES: PERRL, no scleral icterus EARS, NOSE, THROAT: oropharynx with mucus secretions. Moist mucous membranes. Audible gurgling noted LUNGS: Rhonchi diffusely, expiratory wheezes HEART: Regular rate and rhythm, normal S1 and S2 without murmur ABDOMEN: Soft, nontender to palpation, normoactive bowel sounds MUSCULOSKELETAL: Severe levoscoliosis EXTREMITIES: Contracted, trace dependent edema in b/l UE SKIN: Erythematous rash on left groin, perivaginal area, and continues around to perianal region, improving Laboratory Results - last 24 hr 06/23/18 06/23/18 06/24/18 15:35 17:45 08:05 WBC RBC Hgb Hct MCV MCH MCHC RDW Plt Count MPV Anticoagulation Therapy No Result Required. Puncture Site Right radial ABG pH 7.49 H ABG pCO2 at Pt Temp 40.5 ABG pO2 at Pt Temp 63.4 L ABG HCO3 30.1 H ABG O2 Sat (Measured) 93.6 ABG O2 Content 11.9 L ABG Base Excess 6.5 H Kahlil Test Positive O2 Delivery Device No Result Required. Oxygen Flow Rate 1.5l Vent Mode No Result Required. Vent Rate No Result Required. Mechanical Rate No Result Required. Pressure Support Vent No Result Required. Sodium 134 L Potassium 4.0 Chloride 99 Carbon Dioxide 31 Anion Gap 4 L BUN 8 Creatinine 0.4 L Creat Clearance w eGFR > 60 Random Glucose 93 Calcium 8.5 Phosphorus 1.9 L Magnesium 2.2 Urine Color Urine Appearance Urine pH Ur Specific [place] Urine Protein Urine Glucose (UA) Urine Ketones Urine Blood Urine Nitrite Urine Bilirubin Urine Urobilinogen Ur Leukocyte Esterase Urine WBC (Auto) Urine RBC (Auto) Ur Epithelial Cells Vancomycin Pre-Dose 8.0 L 06/24/18 06/24/18 08:05 13:05 WBC 8.5 RBC 2.04 L Hgb 9.1 L Hct 21.9 L MCV 107.4 H MCH 44.5 H D MCHC 41.5 H RDW 15.1 Plt Count 337 MPV 7.7 Anticoagulation Therapy Puncture Site ABG pH ABG pCO2 at Pt Temp ABG pO2 at Pt Temp ABG HCO3 ABG O2 Sat (Measured) ABG O2 Content ABG Base Excess Kahlil Test O2 Delivery Device Oxygen Flow Rate Vent Mode Vent Rate Mechanical Rate Pressure Support Vent Sodium Potassium Chloride Carbon Dioxide Anion Gap BUN Creatinine Creat Clearance w eGFR Random Glucose Calcium Phosphorus Magnesium Urine Color Straw Urine Appearance Clear Urine pH 7.0 Ur Specific [place] 1.004 L Urine Protein Negative Urine Glucose (UA) Negative Urine Ketones Trace H Urine Blood 1+ H Urine Nitrite Negative Urine Bilirubin Negative Urine Urobilinogen Negative Ur Leukocyte Esterase Negative Urine WBC (Auto) 3 Urine RBC (Auto) <1 Ur Epithelial Cells Rare Vancomycin Pre-Dose Active Medications Generic Name Dose Route Start Last Admin Trade Name Freq PRN Reason Stop Dose Admin Acetaminophen 650 mg 06/21/18 08:58 06/24/18 01:47 Tylenol Suppository - [place] 650 mg Q6H PRN Administration FEVER Albuterol Sulfate 1 amp 06/21/18 11:00 06/21/18 23:10 Ventolin 0.083% Nebulizer Soln - NEB 1 amp Q4H PRN Administration SHORT OF BREATH/WHEEZING Albuterol/Ipratropium 1 amp 06/21/18 12:00 06/24/18 12:15 Duoneb - NEB 1 amp RQID [facility] Administration Baclofen 10 mg 06/10/18 08:00 06/24/18 05:43 Lioresal - PO Not Given TID [facility] Bisacodyl 10 mg 06/10/18 14:38 06/22/18 23:25 Dulcolax Suppository - RC 10 mg DAILY PRN Administration CONSTIPATION Calcium Carbonate/Cholecalciferol 1 tab 06/10/18 22:00 06/24/18 10:54 Os-Hitesh 500+D - PO Not Given BID [facility] Chlorhexidine Gluconate 30 ml 06/10/18 22:00 06/24/18 10:54 Peridex - MM Not Given BID [facility] Cholecalciferol 400 unit 06/11/18 10:00 06/24/18 10:54 Vitamin D3 - PO Not Given DAILY [facility] Amino Acids 1,000 mls @ 42 mls/hr 10/08/18 15:45 06/24/18 05:46 Clinimix - IV 42 mls/hr Q12H [facility] Administration Vancomycin HCl 1,500 mg/ 500 mls @ 250 mls/hr 06/21/18 15:00 06/23/18 14:24 Dextrose IVPB 250 mls/hr Q24H [facility] Administration Protocol Meropenem 1 gm/ Dextrose 100 mls @ 200 mls/hr 06/23/18 18:00 06/24/18 10:40 IVPB 200 mls/hr Q8H-IV [facility] Administration Levofloxacin 750 mg in 150 mls @ 150 mls/hr 06/24/18 12:15 06/24/18 12:29 Levaquin 750 Mg Premixed Ivpb - IVPB 150 mls/hr DAILY [facility] Administration Protocol Levetiracetam 500 mg 06/10/18 22:00 06/24/18 10:40 Keppra Injection - IVPB 500 mg BID [facility] Administration Loratadine 10 mg 06/10/18 14:45 06/24/18 10:54 Claritin - PO Not Given DAILY [facility] Lorazepam 2 mg 06/21/18 14:00 06/24/18 05:44 Ativan Injection - IVPUSH 2 mg TID [facility] Administration Nystatin 1 applic 06/21/18 22:00 06/24/18 10:55 Mycostatin Ointment - TP 1 applic BID [facility] Administration Pantoprazole Sodium 20 mg 06/22/18 10:00 06/24/18 10:42 Protonix Iv IVPUSH 20 mg DAILY [facility] Administration Scopolamine HBr 1 patch 06/24/18 12:00 06/24/18 11:24 Transderm-Scop - TD 1 patch Q72H [facility] Administration Senna 2 tab 06/11/18 10:00 06/24/18 10:54 Senna - PO Not Given DAILY [facility] ASSESSMENT/PLAN: 52 yo Female with PMH Cerebral Palsy with spastic quadriplegia, Mental Retardation, Epilepsy, Scoliosis presented from [facility] for vomiting followed by high fevers and cough. Sepsis secondary to Aspiration pneumonia vs pneumonitis -Febrile 103.5 on admission, Tachycardic, tachypnic -Fevers improved from admission but continuing -Chest CT: RUL congestion suspicious for pneumonia vs pneumonitis -ID consult appreciated Meropenem 1gm IV Q8 -Ventolin NEBs QID -Pulmonology consult appreciated -Repeat blood/urine cultures negative, CXR unchanged -Modified barium swallow noted for possible silent aspiration, recommendation to consider PEG even if just for temporary feeding -Extensive discussion with Pts sister and mother, Family is amenable to PEG insertion if medically necessary for feeding -Family states that pt does better when sitting up in her wheelchair than when lying in bed -Still requiring O2 positionally, will attempt to wean off -Scopolamine Patch in attempt to decrease secretions -Repeat Chest CT with increasing infiltrate, IR for Thoracentesis Severe Malnutrition -Pt has not tolerated PO or tube feeds for prolonged time -BMI 18.3 -GI consulted for evaluation of possible PEG insertion, awaiting recommendation -Currently on Clinimix -Extensive conversation with family about possible need for PEG as well as temporary need for Central line and TPN -Family agreeable for PEG insertion though they do not want central line insertion or TPN at this time -Discussed with IR about possible PEG insertion on Wednesday, pt will need NG tube placed Wednesday Abdominal Distension - improved -KUB Flat plate - bowel distension concerning for ileus, no obstruction or fecal impaction noted -Feeds held with vomiting and concern for continued aspiration Epilepsy -Keppra 500 mg PO BID IV until tolerates PO -Ativan 2gm IV TID Spasticity -Pt on Baclofen 10 mg TID, holding as not tolerating NGT feeds -Ativan 2 gm IV TID DVT Prophylaxis -Heparin 5000 units SQ TID FEN -Fluids: Clinimix @ 42 cc/hr -Electrolytes: Low Mag, replete, BMP in AM -Nutrition: NPO, hold tube feeds, Clinimix, pt will likely need PEG Tube Placement Disposition Med/Surg Visit type - Emergency Visit Emergency Visit: Yes ED Registration Date: 06/09/18 Care time: The patient presented to the Emergency Department on the above date and was hospitalized for further evaluation of their emergent condition. - New Patient This patient is new to me today: No - Critical Care Critical Care patient: No
[2018-06-24 18:47] LABS: PLEURAL FLUID APPEARANCE SLIGHTLY CLOUDY; PLEURAL FLUID COLOR YELLOW; PLEURAL FLUID RBC 499 /mm3
[2018-06-24 21:28] LABS: PLEURAL FLUID LYMPHOCYTES 11 %; PLEURAL FLUID MACROPHAGES 89 %; PLEURAL FLUID NEUTROPHIL 0 %
[2018-06-24] MEDS: VANCOMYCIN 1,500 MG in DEXTROSE 5%-WATER - 500 ML IVPB SCH (21:29)
[2018-06-24] MEDS: ALBUTEROL SO4 0.083% IH SOL 2.5 MG/3 ML VIAL.NEB. NEB PRN (23:37)
[2018-06-25] MEDS ORDERED: PT OWN MED DRAWER 7, Y5N ONE (01:29)
[2018-06-25] MEDS: MEROPENEM 1 GM in DEXTROSE 5%-WATER 100 ML IVPB SCH ×3 (01:42→19:22)
[2018-06-25] MEDS: ALBUTEROL SO4 0.083% IH SOL 2.5 MG/3 ML VIAL.NEB. NEB PRN (02:57)
[2018-06-25] MEDS: AMINO ACIDS 4.25%/D5W 1,000 ML IV SCH ×2 (03:55→18:09)
[2018-06-25] MEDS: BACLOFEN 10 MG TABLET (FP) PO SCH ×3 (06:28→22:02)
[2018-06-25] MEDS: LORazepam 2 MG/ML SDV VIAL IVPUSH SCH ×3 (06:28→22:01)
[2018-06-25] MEDS: ALBUTEROL SO4 2.5/IPRATROPIUM 0.5 INH SOL 3 ML VIAL.NEB. NEB SCH ×4 (08:00→20:05)
[2018-06-25 08:59] LABS: ANION GAP 6 MMOL/L (8-16); BLOOD UREA NITROGEN 8 mg/dL (7-18); CALCIUM 8.6 mg/dL (8.5-10.1); CHLORIDE 97 mmol/L (98-107); CO2 31 mmol/L (21-32); CREATININE 0.3 mg/dL (0.55-1.3); GLUCOSE,RANDOM 100 mg/dL (74-106); MAGNESIUM 1.9 mg/dL (1.8-2.4); PHOSPHOROUS 1.3 mg/dL (2.5-4.9); POTASSIUM 3.7 mmol/L (3.5-5.1); SODIUM 134 mmol/L (136-145)
[2018-06-25 09:15] LABS: HEMATOCRIT 24.7 % (32.4-45.2); HEMOGLOBIN 8.7 GM/dL (10.7-15.3); MCH 35.2 pg (25.7-33.7); MCHC 35.3 g/dl (32.0-36.0); MEAN CELL VOLUME 99.7 fl (80-96); MEAN PLT VOLUME 7.9 fl (7.5-11.1); PLATELET COUNT 341 K/MM3 (134-434); RBC 2.47 M/mm3 (3.60-5.2); RDW 15.1 % (11.6-15.6); WHITE BLOOD COUNT 9.9 K/mm3 (4.0-10.0)
--- NOTE | 2018-06-25 09:31 | PN ---
Teaching Attending Note Name of Resident: Spencer Hyatt ATTENDING PHYSICIAN STATEMENT I saw and evaluated the patient. I reviewed the resident's note and discussed the case with the resident. I agree with the resident's findings and plan as documented with exceptions below. SUBJECTIVE: Patient seen and examined, more awake today, still with some tachypnea, non verbal OBJECTIVE: Vital Signs Period Temp Pulse Resp BP Sys/Ascencio Pulse Ox Last 24 Hr 99.6 F-100.5 F 110-110 20-21 100-130/65-70 97 Intake & Output 06/22/18 06/23/18 06/24/18 06/25/18 23:59 23:59 23:59 23:59 Intake Total 1478 5521 727 9926 Balance 1478 2118 528 [id number] General: some improvement in tachypnea, more awake Chest: poor effort, coarse rales improved, decreased breath sounds at bases Abdomen:Soft, unchanged distension, no grimacing, positive bowel sounds Extremities: contractures Active Medications Acetaminophen (Tylenol Suppository -) 650 mg [place] Q6H PRN PRN Reason: FEVER Last Admin: 06/24/18 22:12 Dose: 650 mg Albuterol Sulfate (Ventolin 0.083% Nebulizer Soln -) 1 amp NEB Q4H PRN PRN Reason: SHORT OF BREATH/WHEEZING Last Admin: 06/25/18 02:57 Dose: 1 amp Albuterol/Ipratropium (Duoneb -) 1 amp NEB RQID [facility] Last Admin: 06/25/18 08:00 Dose: 1 amp Baclofen (Lioresal -) 10 mg PO TID [facility] Last Admin: 06/25/18 06:28 Dose: Not Given Bisacodyl (Dulcolax Suppository -) 10 mg RC DAILY PRN PRN Reason: CONSTIPATION Last Admin: 06/22/18 23:25 Dose: 10 mg Calcium Carbonate/Cholecalciferol (Os-Hitesh 500+D -) 1 tab PO BID [facility] Last Admin: 06/24/18 22:10 Dose: Not Given Chlorhexidine Gluconate (Peridex -) 30 ml MM BID [facility] Last Admin: 06/24/18 22:11 Dose: Not Given Cholecalciferol (Vitamin D3 -) 400 unit PO DAILY [facility] Last Admin: 06/24/18 10:54 Dose: Not Given Amino Acids (Clinimix -) 1,000 mls @ 42 mls/hr IV Q12H [facility] Last Admin: 06/25/18 03:55 Dose: Not Given Vancomycin HCl 1,500 mg/ (Dextrose) 500 mls @ 250 mls/hr IVPB Q24H [facility]; Protocol Last Admin: 06/24/18 21:29 Dose: 250 mls/hr Meropenem 1 gm/ Dextrose 100 mls @ 200 mls/hr IVPB Q8H-IV [facility] Last Admin: 06/25/18 01:42 Dose: 200 mls/hr Levofloxacin (Levaquin 750 Mg Premixed Ivpb -) 750 mg in 150 mls @ 150 mls/hr IVPB DAILY [facility]; Protocol Last Admin: 06/24/18 12:29 Dose: 150 mls/hr Levetiracetam (Keppra Injection -) 500 mg IVPB BID [facility] Last Admin: 06/24/18 22:10 Dose: 500 mg Loratadine (Claritin -) 10 mg PO DAILY [facility] Last Admin: 06/24/18 10:54 Dose: Not Given Lorazepam (Ativan Injection -) 2 mg IVPUSH TID [facility] Last Admin: 06/25/18 06:28 Dose: 2 mg Nystatin (Mycostatin Ointment -) 1 applic TP BID [facility] Last Admin: 06/24/18 22:10 Dose: 1 applic Pantoprazole Sodium (Protonix Iv) 20 mg IVPUSH DAILY [facility] Last Admin: 06/24/18 10:42 Dose: 20 mg Scopolamine HBr (Transderm-Scop -) 1 patch TD Q72H [facility] Last Admin: 06/24/18 11:24 Dose: 1 patch Senna (Senna -) 2 tab PO DAILY [facility] Last Admin: 06/24/18 10:54 Dose: Not Given Laboratory Results - last 24 hr 06/24/18 06/24/18 06/24/18 13:05 14:30 16:30 WBC RBC Hgb Hct MCV MCH MCHC RDW Plt Count MPV Sodium Potassium Chloride Carbon Dioxide Anion Gap BUN Creatinine Creat Clearance w eGFR Random Glucose Calcium Phosphorus Magnesium Urine Color Straw Urine Appearance Clear Urine pH 7.0 Ur Specific [place] 1.004 L Urine Protein Negative Urine Glucose (UA) Negative Urine Ketones Trace H Urine Blood 1+ H Urine Nitrite Negative Urine Bilirubin Negative Urine Urobilinogen Negative Ur Leukocyte Esterase Negative Urine WBC (Auto) 3 Urine RBC (Auto) <1 Ur Epithelial Cells Rare Pleural Fluid Source Pleural Pleural Color Yellow Pleural Appearance Slightly cloudy Pleural WBC 277 Pleural RBC 499 Pleural Neutrophils 0 Pleural Lymphocytes 11 Pleural Macrophages 89 Vancomycin Pre-Dose 9.6 L 06/25/18 06/25/18 07:30 07:30 WBC 9.9 RBC 2.47 L Hgb 8.7 L Hct 24.7 L MCV 99.7 H D MCH 35.2 H D MCHC 35.3 RDW 15.1 Plt Count 341 MPV 7.9 Sodium 134 L Potassium 3.7 Chloride 97 L Carbon Dioxide 31 Anion Gap 6 L BUN 8 Creatinine 0.3 L Creat Clearance w eGFR > 60 Random Glucose 100 Calcium 8.6 Phosphorus 1.3 L Magnesium 1.9 Urine Color Urine Appearance Urine pH Ur Specific [place] Urine Protein Urine Glucose (UA) Urine Ketones Urine Blood Urine Nitrite Urine Bilirubin Urine Urobilinogen Ur Leukocyte Esterase Urine WBC (Auto) Urine RBC (Auto) Ur Epithelial Cells Pleural Fluid Source Pleural Color Pleural Appearance Pleural WBC Pleural RBC Pleural Neutrophils Pleural Lymphocytes Pleural Macrophages Vancomycin Pre-Dose Microbiology 06/20/18 16:00 Blood - Peripheral Venous Blood Culture - Preliminary NO GROWTH OBTAINED AFTER 96 HOURS, INCUBATION TO CONTINUE FOR 1 DAYS. 06/20/18 15:20 Blood - Peripheral Venous Blood Culture - Preliminary NO GROWTH OBTAINED AFTER 96 HOURS, INCUBATION TO CONTINUE FOR 1 DAYS. 06/24/18 13:05 Urine For Antigen Detection Legionella Antigen - Final 06/24/18 13:05 Urine For Antigen Detection Streptococcus pneumoniae Antigen (M - Final 06/20/18 17:00 Urine - Urine - Catheterized Urine Culture - Final NO GROWTH OBTAINED 06/12/18 20:30 Blood - Peripheral Venous Blood Culture - Final NO GROWTH AFTER 5 DAYS INCUBATION 06/12/18 17:00 Blood - Peripheral Venous Blood Culture - Final NO GROWTH AFTER 5 DAYS INCUBATION 06/09/18 18:00 Blood - Peripheral Venous Blood Culture - Final NO GROWTH AFTER 5 DAYS INCUBATION 06/09/18 17:30 Blood - Peripheral Venous Blood Culture - Final NO GROWTH AFTER 5 DAYS INCUBATION 06/13/18 04:10 Urine - Urine - Catheterized Urine Culture - Final NO GROWTH OBTAINED 06/13/18 04:10 Urine For Antigen Detection Legionella Antigen - Final 06/13/18 04:10 Urine For Antigen Detection Streptococcus pneumoniae Antigen (M - Final 06/09/18 22:59 Urine - Urine - Catheterized Urine Culture - Final NO GROWTH OBTAINED 06/10/18 14:30 Nasopharyngeal Swab Influenza Types A,B Antigen - Final 06/10/18 14:30 Nasopharyngeal Swab - Final ASSESSMENT AND PLAN: 52 yom with PMHx of mental retardation, cerebral palsy with spastic quadriplegia , scoliosis, epilepsy(last seizure activity February of 2017, currently receiving diazepam 5 mg 3 tabs po BID and Keppra 500 mg BID), b/l foot contractures, 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 Follow up pleural fluid studies. Meropenem, day 3, levaquin day 2 (after 14 days of zosyn), Vanco day 11, levels noted. Fever curve and respiratory status seem to be improving over last 24 hours. Hold off on steroids for now. Standing and prn nebs. Scopolamine patch to possibly decrease secretions and aspiration. Blood cx neg so far. Strict NPO for now. Discussed TPN option with familiy, declined central access or TPN but agreable to PEG when medically able to. On clinimix, continue. Aspiration precautions. Possible IR guided PEG placement when medical issues improve, NG tube night before intended procedure. Unable to take PO meds. Ativan IV TID while NPO given h/o seizures when tapered off benzos. Nystatin cream. Replete phos prn. DVTPPX dispo pending clinical improvement. Close respiratory status monitoring for now. Plan discussed with aide at bedside,all questions answered.
[2018-06-25] MEDS ORDERED: methylPREDNISolone NA SUCC 40 MG/1 ML VIAL IVPUSH SCH (10:00)
[2018-06-25] MEDS: NYSTATIN 100000 UNIT/GM TOPICAL OINTMENT 15 GM TUBE TP SCH ×2 (10:00→22:02)
[2018-06-25] MEDS: PANTOPRAZOLE SODIUM 40 MG VIAL IVPUSH SCH (10:00)
[2018-06-25] MEDS: levETIRAcetam 500 MG/5 ML INJECTION VIAL IVPB SCH ×2 (10:39→22:01)
--- NOTE | 2018-06-25 13:47 | PN ---
Progress Note (short form) - Note Progress Note: Breathing is non-labored on NC O2. Mother and aide at the bedside. Audible congestion. Intake & Output 06/22/18 06/23/18 06/24/18 06/25/18 23:59 23:59 23:59 23:59 Intake Total 1478 7229 746 1388 Balance 1478 9049 653 2750 Last Vital Signs Temp Pulse Resp BP Pulse Ox 99.6 F 110 H 20 100/65 97 06/25/18 05:33 06/25/18 05:33 06/25/18 05:33 06/25/18 05:33 06/24/18 22:00 Active Medications Acetaminophen (Tylenol Suppository -) 650 mg [place] Q6H PRN PRN Reason: FEVER Last Admin: 06/24/18 22:12 Dose: 650 mg Albuterol Sulfate (Ventolin 0.083% Nebulizer Soln -) 1 amp NEB Q4H PRN PRN Reason: SHORT OF BREATH/WHEEZING Last Admin: 06/25/18 02:57 Dose: 1 amp Albuterol/Ipratropium (Duoneb -) 1 amp NEB RQID [facility] Last Admin: 06/25/18 12:08 Dose: 1 amp Baclofen (Lioresal -) 10 mg PO TID [facility] Last Admin: 06/25/18 06:28 Dose: Not Given Bisacodyl (Dulcolax Suppository -) 10 mg RC DAILY PRN PRN Reason: CONSTIPATION Last Admin: 06/22/18 23:25 Dose: 10 mg Calcium Carbonate/Cholecalciferol (Os-Hitesh 500+D -) 1 tab PO BID [facility] Last Admin: 06/24/18 22:10 Dose: Not Given Chlorhexidine Gluconate (Peridex -) 30 ml MM BID [facility] Last Admin: 06/24/18 22:11 Dose: Not Given Cholecalciferol (Vitamin D3 -) 400 unit PO DAILY [facility] Last Admin: 06/24/18 10:54 Dose: Not Given Amino Acids (Clinimix -) 1,000 mls @ 42 mls/hr IV Q12H [facility] Last Admin: 06/25/18 03:55 Dose: Not Given Vancomycin HCl 1,500 mg/ (Dextrose) 500 mls @ 250 mls/hr IVPB Q24H [facility]; Protocol Last Admin: 06/24/18 21:29 Dose: 250 mls/hr Meropenem 1 gm/ Dextrose 100 mls @ 200 mls/hr IVPB Q8H-IV [facility] Last Admin: 06/25/18 01:42 Dose: 200 mls/hr Levofloxacin (Levaquin 750 Mg Premixed Ivpb -) 750 mg in 150 mls @ 150 mls/hr IVPB DAILY [facility]; Protocol Last Admin: 06/25/18 10:40 Dose: 150 mls/hr Levetiracetam (Keppra Injection -) 500 mg IVPB BID [facility] Last Admin: 06/25/18 10:39 Dose: 500 mg Loratadine (Claritin -) 10 mg PO DAILY [facility] Last Admin: 06/24/18 10:54 Dose: Not Given Lorazepam (Ativan Injection -) 2 mg IVPUSH TID [facility] Last Admin: 06/25/18 06:28 Dose: 2 mg Nystatin (Mycostatin Ointment -) 1 applic TP BID [facility] Last Admin: 06/24/18 22:10 Dose: 1 applic Pantoprazole Sodium (Protonix Iv) 20 mg IVPUSH DAILY [facility] Last Admin: 06/24/18 10:42 Dose: 20 mg Scopolamine HBr (Transderm-Scop -) 1 patch TD Q72H [facility] Last Admin: 06/24/18 11:24 Dose: 1 patch Senna (Senna -) 2 tab PO DAILY [facility] Last Admin: 06/24/18 10:54 Dose: Not Given Constitutional: Yes: No Distress Eyes: Yes: Conjunctiva Clear, EOM Intact HENT: Yes: Atraumatic Neck: Yes: Supple, Trachea Midline Cardiovascular: Yes: Regular Rate and Rhythm Respiratory: Yes: Cough, Diminished, On Nasal O2, Rhonchi. No: Accessory Muscle Use, Rales, SOB, SOB on Exertion, Stridor, Tachypnea, Wheezes ...Inspection: Yes: WNL ...Clubbing: No Gastrointestinal: Yes: Normal Bowel Sounds, Soft Renal/: Yes: WNL Musculoskeletal: Yes: Joint Stiffness Extremities: Yes: Shortened Edema: No Peripheral Pulses WNL: Yes Integumentary: Yes: WNL Neurological: Yes: Alert Psychiatric: Yes: Alert Labs: Laboratory Results - last 24 hr 06/24/18 06/24/18 06/24/18 13:05 14:30 16:30 WBC RBC Hgb Hct MCV MCH MCHC RDW Plt Count MPV Sodium Potassium Chloride Carbon Dioxide Anion Gap BUN Creatinine Creat Clearance w eGFR Random Glucose Calcium Phosphorus Magnesium Urine Color Straw Urine Appearance Clear Urine pH 7.0 Ur Specific [place] 1.004 L Urine Protein Negative Urine Glucose (UA) Negative Urine Ketones Trace H Urine Blood 1+ H Urine Nitrite Negative Urine Bilirubin Negative Urine Urobilinogen Negative Ur Leukocyte Esterase Negative Urine WBC (Auto) 3 Urine RBC (Auto) <1 Ur Epithelial Cells Rare Pleural Fluid Source Pleural Pleural Color Yellow Pleural Appearance Slightly cloudy Pleural WBC 277 Pleural RBC 499 Pleural Neutrophils 0 Pleural Lymphocytes 11 Pleural Macrophages 89 Vancomycin Pre-Dose 9.6 L 06/25/18 06/25/18 07:30 07:30 WBC 9.9 RBC 2.47 L Hgb 8.7 L Hct 24.7 L MCV 99.7 H D MCH 35.2 H D MCHC 35.3 RDW 15.1 Plt Count 341 MPV 7.9 Sodium 134 L Potassium 3.7 Chloride 97 L Carbon Dioxide 31 Anion Gap 6 L BUN 8 Creatinine 0.3 L Creat Clearance w eGFR > 60 Random Glucose 100 Calcium 8.6 Phosphorus 1.3 L Magnesium 1.9 Urine Color Urine Appearance Urine pH Ur Specific [place] Urine Protein Urine Glucose (UA) Urine Ketones Urine Blood Urine Nitrite Urine Bilirubin Urine Urobilinogen Ur Leukocyte Esterase Urine WBC (Auto) Urine RBC (Auto) Ur Epithelial Cells Pleural Fluid Source Pleural Color Pleural Appearance Pleural WBC Pleural RBC Pleural Neutrophils Pleural Lymphocytes Pleural Macrophages Vancomycin Pre-Dose Problem List - Problems (1) Pneumonia Code(s): J18.9 - PNEUMONIA, UNSPECIFIED ORGANISM (2) Aspiration pneumonia Code(s): J69.0 - PNEUMONITIS DUE TO INHALATION OF FOOD AND VOMIT (3) Fever Code(s): R50.9 - FEVER, UNSPECIFIED (4) Altered mental status Code(s): R41.82 - ALTERED MENTAL STATUS, UNSPECIFIED Qualifiers: Altered mental status type: unspecified Qualified Code(s): R41.82 - Altered mental status, unspecified (5) Cerebral palsy Code(s): G80.9 - CEREBRAL PALSY, UNSPECIFIED (6) Constipation Code(s): K59.00 - CONSTIPATION, UNSPECIFIED (7) Functional quadriplegia Code(s): R53.2 - FUNCTIONAL QUADRIPLEGIA (8) Mental retardation Code(s): F79 - UNSPECIFIED INTELLECTUAL DISABILITIES (9) Seizures Code(s): R56.9 - UNSPECIFIED CONVULSIONS Assessment/Plan Follow pleural fluid analysis/cultures ABX per ID Aspiration precautions O2 as needed PO when cleared by S&S VTE prophylaxis BD TX Chest PT OOB to her own wheelchair May need PEG Dr Alex Problem List - Problems (1) Pneumonia Code(s): J18.9 - PNEUMONIA, UNSPECIFIED ORGANISM (2) Aspiration pneumonia Code(s): J69.0 - PNEUMONITIS DUE TO INHALATION OF FOOD AND VOMIT (3) Fever Code(s): R50.9 - FEVER, UNSPECIFIED (4) Altered mental status Code(s): R41.82 - ALTERED MENTAL STATUS, UNSPECIFIED Qualifiers: Altered mental status type: unspecified Qualified Code(s): R41.82 - Altered mental status, unspecified (5) Cerebral palsy Code(s): G80.9 - CEREBRAL PALSY, UNSPECIFIED (6) Constipation Code(s): K59.00 - CONSTIPATION, UNSPECIFIED (7) Functional quadriplegia Code(s): R53.2 - FUNCTIONAL QUADRIPLEGIA (8) Mental retardation Code(s): F79 - UNSPECIFIED INTELLECTUAL DISABILITIES (9) Seizures Code(s): R56.9 - UNSPECIFIED CONVULSIONS
[2018-06-25] MEDS: LORATADINE 10 MG TABLET PO SCH (14:01)
[2018-06-25] MEDS: CALCIUM 500MG/VIT-D 200 UNITS COMBO TABLET (FP) PO SCH ×2 (14:02→22:02)
[2018-06-25] MEDS: SENNOSIDES 8.6MG TABLET (FP) PO SCH (14:03)
[2018-06-25] MEDS: CHOLECALCIFEROL (VITAMIN D3) 400 UNIT TABLET (FP) PO SCH (14:03)
[2018-06-25] MEDS: CHLORHEXIDINE GLUCONATE 0.12% 15ML CUP MM SCH ×2 (14:03→22:39)
--- NOTE | 2018-06-25 15:38 | PN ---
Physical Exam: SUBJECTIVE: No events overnight. Pt lost IV access this afternoon. OBJECTIVE: Vital Signs Period Temp Pulse Resp BP Sys/Ascencio Pulse Ox Last 24 Hr 99.6 F-100.5 F 110-110 20-21 100-130/65-70 97 GENERAL: Awake,nonverbal, in no acute distress HEAD: Microcephalic, atraumatic. EYES: PERRL, no scleral icterus EARS, NOSE, THROAT: no oropharynx secretions. Moist mucous membranes. LUNGS: Improved scattered rhonchi compared to previous exams, no wheezing or rales. No accessory muscle use. HEART: Regular rate and rhythm, normal S1 and S2 without murmur ABDOMEN: Soft, nontender to palpation, normoactive bowel sounds MUSCULOSKELETAL: Severe levoscoliosis EXTREMITIES: Contracted, trace dependent edema in b/l UE Laboratory Results - last 24 hr 06/24/18 06/24/18 06/24/18 13:05 14:30 16:30 WBC RBC Hgb Hct MCV MCH MCHC RDW Plt Count MPV Sodium Potassium Chloride Carbon Dioxide Anion Gap BUN Creatinine Creat Clearance w eGFR Random Glucose Calcium Phosphorus Magnesium Urine WBC (Auto) 3 Urine RBC (Auto) <1 Ur Epithelial Cells Rare Pleural Fluid Source Pleural Pleural Color Yellow Pleural Appearance Slightly cloudy Pleural WBC 277 Pleural RBC 499 Pleural Neutrophils 0 Pleural Lymphocytes 11 Pleural Macrophages 89 Vancomycin Pre-Dose 9.6 L 06/25/18 06/25/18 07:30 07:30 WBC 9.9 RBC 2.47 L Hgb 8.7 L Hct 24.7 L MCV 99.7 H D MCH 35.2 H D MCHC 35.3 RDW 15.1 Plt Count 341 MPV 7.9 Sodium 134 L Potassium 3.7 Chloride 97 L Carbon Dioxide 31 Anion Gap 6 L BUN 8 Creatinine 0.3 L Creat Clearance w eGFR > 60 Random Glucose 100 Calcium 8.6 Phosphorus 1.3 L Magnesium 1.9 Urine WBC (Auto) Urine RBC (Auto) Ur Epithelial Cells Pleural Fluid Source Pleural Color Pleural Appearance Pleural WBC Pleural RBC Pleural Neutrophils Pleural Lymphocytes Pleural Macrophages Vancomycin Pre-Dose Active Medications Generic Name Dose Route Start Last Admin Trade Name Freq PRN Reason Stop Dose Admin Acetaminophen 650 mg 06/21/18 08:58 06/24/18 22:12 Tylenol Suppository - [place] 650 mg Q6H PRN Administration FEVER Albuterol Sulfate 1 amp 06/21/18 11:00 06/25/18 02:57 Ventolin 0.083% Nebulizer Soln - NEB 1 amp Q4H PRN Administration SHORT OF BREATH/WHEEZING Albuterol/Ipratropium 1 amp 06/21/18 12:00 06/25/18 12:08 Duoneb - NEB 1 amp RQID [facility] Administration Baclofen 10 mg 06/10/18 08:00 06/25/18 14:03 Lioresal - PO Not Given TID [facility] Bisacodyl 10 mg 06/10/18 14:38 06/22/18 23:25 Dulcolax Suppository - RC 10 mg DAILY PRN Administration CONSTIPATION Calcium Carbonate/Cholecalciferol 1 tab 06/10/18 22:00 06/25/18 14:02 Os-Hitesh 500+D - PO Not Given BID [facility] Chlorhexidine Gluconate 30 ml 06/10/18 22:00 06/25/18 14:03 Peridex - MM Not Given BID [facility] Cholecalciferol 400 unit 06/11/18 10:00 06/25/18 14:03 Vitamin D3 - PO Not Given DAILY [facility] Amino Acids 1,000 mls @ 42 mls/hr 06/20/18 15:45 06/25/18 03:55 Clinimix - IV Not Given Q12H [facility] Vancomycin HCl 1,500 mg/ 500 mls @ 250 mls/hr 06/21/18 15:00 06/24/18 21:29 Dextrose IVPB 250 mls/hr Q24H [facility] Administration Protocol Meropenem 1 gm/ Dextrose 100 mls @ 200 mls/hr 06/23/18 18:00 06/25/18 10:14 IVPB 200 mls/hr Q8H-IV [facility] Administration Levofloxacin 750 mg in 150 mls @ 150 mls/hr 06/24/18 12:15 06/25/18 10:40 Levaquin 750 Mg Premixed Ivpb - IVPB 150 mls/hr DAILY [facility] Administration Protocol Levetiracetam 500 mg 06/10/18 22:00 06/25/18 10:39 Keppra Injection - IVPB 500 mg BID [facility] Administration Loratadine 10 mg 06/10/18 14:45 06/25/18 14:01 Claritin - PO Not Given DAILY [facility] Lorazepam 2 mg 06/21/18 14:00 06/25/18 14:15 Ativan Injection - IVPUSH 2 mg TID [facility] Administration Nystatin 1 applic 06/21/18 22:00 06/25/18 10:00 Mycostatin Ointment - TP 1 applic BID [facility] Administration Pantoprazole Sodium 20 mg 06/22/18 10:00 06/25/18 10:00 Protonix Iv IVPUSH 20 mg DAILY [facility] Administration Scopolamine HBr 1 patch 06/24/18 12:00 06/24/18 11:24 Transderm-Scop - TD 1 patch Q72H [facility] Administration Senna 2 tab 06/11/18 10:00 06/25/18 14:03 Senna - PO Not Given DAILY [facility] ASSESSMENT/PLAN: 52 yo Female with PMH Cerebral Palsy with spastic quadriplegia, Mental Retardation, Epilepsy, Scoliosis presented from [facility] for vomiting followed by high fevers and cough. Sepsis 2/2 to aspiration pneumonitits Severe malnutrition Functional quadriplegia Abdominal distention (resolved) Epilepsy history Cerebral palsy history Developmental abnormality Neuro: at baseline Continue Keppra 500mg BID IV Continue Ativan 2gm IV TID Continue Baclofen TID 10mg Resp: Thoracentesis 06/24 - f/u pleural studies as some are still pending Continue Duoneb standing QID Continue albuterol PRN for increased shortness of breath Now off steroids Aspiration precautions Continue Chest PT Pulmonology on board ID: Vanco day 11 Meropenem day 3 Levaquin day 2 ID on board Pt's fevers have been overall decreasing; monitor temperatures Blood cultures without growth currently PPX: DVT - Heparin SQ TID FEN Fluids: None currently Electrolytes: Nutrition: Strict NPO (being followed by S&S), Clinimix @42cc/hr; pt would benefit from IR PEG tube insertion (will need NGT prior to procedure) Dispo: Continue monitoring Case discussed with Dr. Luciana Hyatt, DO - IM PGY-2 Visit type - Emergency Visit Emergency Visit: Yes ED Registration Date: 06/09/18 Care time: The patient presented to the Emergency Department on the above date and was hospitalized for further evaluation of their emergent condition. - New Patient This patient is new to me today: No - Critical Care Critical Care patient: No
[2018-06-25] MEDS: VANCOMYCIN 1,500 MG in DEXTROSE 5%-WATER - 500 ML IVPB SCH (16:00)
[2018-06-25] MEDS ORDERED: SODIUM PHOSPHATE - 30 MM in DEXTROSE 5%-WATER - 500 ML IVPB ONE (16:30)
--- NOTE | 2018-06-25 18:13 | PN ---
Progress Note, Physician History of Present Illness: Pt is alert, on O2 NC, without acute resp. distress. Tmax 100.5F - Current Medication List Current Medications: Active Medications Acetaminophen (Tylenol Suppository -) 650 mg DE Q6H PRN PRN Reason: FEVER Last Admin: 06/24/18 22:12 Dose: 650 mg Albuterol Sulfate (Ventolin 0.083% Nebulizer Soln -) 1 amp NEB Q4H PRN PRN Reason: SHORT OF BREATH/WHEEZING Last Admin: 06/25/18 02:57 Dose: 1 amp Albuterol/Ipratropium (Duoneb -) 1 amp NEB RQID [facility] Last Admin: 06/25/18 12:08 Dose: 1 amp Baclofen (Lioresal -) 10 mg PO TID [facility] Last Admin: 06/25/18 14:03 Dose: Not Given Bisacodyl (Dulcolax Suppository -) 10 mg RC DAILY PRN PRN Reason: CONSTIPATION Last Admin: 06/22/18 23:25 Dose: 10 mg Calcium Carbonate/Cholecalciferol (Os-Hitesh 500+D -) 1 tab PO BID [facility] Last Admin: 06/25/18 14:02 Dose: Not Given Chlorhexidine Gluconate (Peridex -) 30 ml MM BID [facility] Last Admin: 06/25/18 14:03 Dose: Not Given Cholecalciferol (Vitamin D3 -) 400 unit PO DAILY [facility] Last Admin: 06/25/18 14:03 Dose: Not Given Amino Acids (Clinimix -) 1,000 mls @ 42 mls/hr IV Q12H [facility] Last Admin: 06/25/18 03:55 Dose: Not Given Vancomycin HCl 1,500 mg/ (Dextrose) 500 mls @ 250 mls/hr IVPB Q24H [facility]; Protocol Last Admin: 06/25/18 16:00 Dose: 250 mls/hr Meropenem 1 gm/ Dextrose 100 mls @ 200 mls/hr IVPB Q8H-IV [facility] Last Admin: 06/25/18 10:14 Dose: 200 mls/hr Levofloxacin (Levaquin 750 Mg Premixed Ivpb -) 750 mg in 150 mls @ 150 mls/hr IVPB DAILY [facility]; Protocol Last Admin: 06/25/18 10:40 Dose: 150 mls/hr Sodium Phosphate 30 mm/ (Dextrose) 510 mls @ 85 mls/hr IVPB ONCE ONE Stop: 06/25/18 22:29 Levetiracetam (Keppra Injection -) 500 mg IVPB BID [facility] Last Admin: 06/25/18 10:39 Dose: 500 mg Loratadine (Claritin -) 10 mg PO DAILY [facility] Last Admin: 06/25/18 14:01 Dose: Not Given Lorazepam (Ativan Injection -) 2 mg IVPUSH TID [facility] Last Admin: 06/25/18 14:15 Dose: 2 mg Nystatin (Mycostatin Ointment -) 1 applic TP BID [facility] Last Admin: 06/25/18 10:00 Dose: 1 applic Pantoprazole Sodium (Protonix Iv) 20 mg IVPUSH DAILY [facility] Last Admin: 06/25/18 10:00 Dose: 20 mg Scopolamine HBr (Transderm-Scop -) 1 patch TD Q72H [facility] Last Admin: 06/24/18 11:24 Dose: 1 patch Senna (Senna -) 2 tab PO DAILY [facility] Last Admin: 06/25/18 14:03 Dose: Not Given - Objective Vital Signs: Vital Signs Temperature 99.4 F 06/25/18 10:00 Pulse Rate 106 H 06/25/18 10:00 Respiratory Rate 20 06/25/18 10:00 Blood Pressure 110/70 06/25/18 10:00 O2 Sat by Pulse Oximetry (%) 97 06/25/18 15:44 Constitutional: Yes: No Distress Cardiovascular: Yes: Regular Rate and Rhythm Respiratory: Yes: Rhonchi Gastrointestinal: Yes: Normal Bowel Sounds, Soft Musculoskeletal: Yes: Other (contracted) Edema: No Integumentary: Yes: WNL Neurological: Yes: Alert Labs: CBC, BMP 06/25/18 07:30 06/25/18 07:30 INR, PTT INR 1.14 (0.83-1.09) H 06/10/18 06:00 Microbiology 06/20/18 16:00 Blood - Peripheral Venous Blood Culture - Final NO GROWTH AFTER 5 DAYS INCUBATION 06/24/18 16:30 Pleural Fluid Gram Stain - Final 06/20/18 15:20 Blood - Peripheral Venous Blood Culture - Final NO GROWTH AFTER 5 DAYS INCUBATION 06/24/18 13:05 Urine - Urine - Catheterized Urine Culture - Final NO GROWTH OBTAINED 06/24/18 13:05 Urine For Antigen Detection Legionella Antigen - Final 06/24/18 13:05 Urine For Antigen Detection Streptococcus pneumoniae Antigen (M - Final 06/20/18 17:00 Urine - Urine - Catheterized Urine Culture - Final NO GROWTH OBTAINED 06/12/18 20:30 Blood - Peripheral Venous Blood Culture - Final NO GROWTH AFTER 5 DAYS INCUBATION 06/12/18 17:00 Blood - Peripheral Venous Blood Culture - Final NO GROWTH AFTER 5 DAYS INCUBATION 06/09/18 18:00 Blood - Peripheral Venous Blood Culture - Final NO GROWTH AFTER 5 DAYS INCUBATION 06/09/18 17:30 Blood - Peripheral Venous Blood Culture - Final NO GROWTH AFTER 5 DAYS INCUBATION 06/13/18 04:10 Urine - Urine - Catheterized Urine Culture - Final NO GROWTH OBTAINED 06/13/18 04:10 Urine For Antigen Detection Legionella Antigen - Final 06/13/18 04:10 Urine For Antigen Detection Streptococcus pneumoniae Antigen (M - Final 06/09/18 22:59 Urine - Urine - Catheterized Urine Culture - Final NO GROWTH OBTAINED 06/10/18 14:30 Nasopharyngeal Swab Influenza Types A,B Antigen - Final 06/10/18 14:30 Nasopharyngeal Swab - Final Problem List - Problems (1) Fever Code(s): R50.9 - FEVER, UNSPECIFIED (2) Cerebral palsy Code(s): G80.9 - CEREBRAL PALSY, UNSPECIFIED (3) Functional quadriplegia Code(s): R53.2 - FUNCTIONAL QUADRIPLEGIA (4) Mental retardation Code(s): F79 - UNSPECIFIED INTELLECTUAL DISABILITIES (5) Seizures Code(s): R56.9 - UNSPECIFIED CONVULSIONS (6) Pneumonia Code(s): J18.9 - PNEUMONIA, UNSPECIFIED ORGANISM Assessment/Plan Fever Pneumonia -- Tmax 100.5F, no acute distress -- culture results noted, f/u pleural culture results, still pending -- cont. Meropenem/Vancomycin/Levaquin for now -- monitor temperature trend, O2 saturation
[2018-06-25] MEDS: ACETAMINOPHEN 325 MG SUPP.RECT PR PRN (22:03)
[2018-06-26] MEDS: MEROPENEM 1 GM in DEXTROSE 5%-WATER 100 ML IVPB SCH ×3 (01:56→17:39)
[2018-06-26] MEDS: AMINO ACIDS 4.25%/D5W 1,000 ML IV SCH ×2 (04:00→16:01)
[2018-06-26] MEDS: LORazepam 2 MG/ML SDV VIAL IVPUSH SCH ×3 (05:43→21:26)
[2018-06-26] MEDS: BACLOFEN 10 MG TABLET (FP) PO SCH ×3 (05:43→21:26)
[2018-06-26] MEDS: ALBUTEROL SO4 2.5/IPRATROPIUM 0.5 INH SOL 3 ML VIAL.NEB. NEB SCH (07:30)
[2018-06-26 08:07] LABS: ANION GAP 7 MMOL/L (8-16); BLOOD UREA NITROGEN 6 mg/dL (7-18); CALCIUM 8.2 mg/dL (8.5-10.1); CHLORIDE 94 mmol/L (98-107); CO2 34 mmol/L (21-32); CREATININE 0.4 mg/dL (0.55-1.3); GLUCOSE,RANDOM 111 mg/dL (74-106); MAGNESIUM 1.9 mg/dL (1.8-2.4); PHOSPHOROUS 2.6 mg/dL (2.5-4.9); POTASSIUM 3.1 mmol/L (3.5-5.1); SODIUM 135 mmol/L (136-145)
[2018-06-26 08:14] LABS: HEMATOCRIT 23.8 % (32.4-45.2); HEMOGLOBIN 8.5 GM/dL (10.7-15.3); MCH 34.9 pg (25.7-33.7); MCHC 35.7 g/dl (32.0-36.0); MEAN CELL VOLUME 97.9 fl (80-96); MEAN PLT VOLUME 7.5 fl (7.5-11.1); PLATELET COUNT 333 K/MM3 (134-434); RBC 2.43 M/mm3 (3.60-5.2); RDW 14.9 % (11.6-15.6); WHITE BLOOD COUNT 8.6 K/mm3 (4.0-10.0)
[2018-06-26] MEDS: SENNOSIDES 8.6MG TABLET (FP) PO SCH ×2 (09:52→13:31)
[2018-06-26] MEDS: CALCIUM 500MG/VIT-D 200 UNITS COMBO TABLET (FP) PO SCH ×3 (09:53→21:27)
[2018-06-26] MEDS: levETIRAcetam 500 MG/5 ML INJECTION VIAL IVPB SCH ×2 (09:53→21:26)
[2018-06-26] MEDS: CHOLECALCIFEROL (VITAMIN D3) 400 UNIT TABLET (FP) PO SCH ×2 (09:53→13:31)
[2018-06-26] MEDS: NYSTATIN 100000 UNIT/GM TOPICAL OINTMENT 15 GM TUBE TP SCH ×2 (10:00→21:43)
[2018-06-26] MEDS: CHLORHEXIDINE GLUCONATE 0.12% 15ML CUP MM SCH ×2 (10:02→21:27)
[2018-06-26] MEDS: LORATADINE 10 MG TABLET PO SCH (10:02)
[2018-06-26] MEDS: PANTOPRAZOLE SODIUM 40 MG VIAL IVPUSH SCH (10:19)
--- NOTE | 2018-06-26 11:51 | PN ---
Progress Note (short form) - Note Progress Note: Breathing is non-labored on NC O2. Low grade temps. Aide at the bedside. Audible congestion. Intake & Output 06/23/18 06/24/18 06/25/18 06/26/18 23:59 23:59 23:59 23:59 Intake Total 1204 294 4104 800 Balance 7944 964 0302 800 Last Vital Signs Temp Pulse Resp BP Pulse Ox 99.4 F 105 H 22 H 138/76 96 06/26/18 05:57 06/26/18 05:20 06/26/18 05:20 06/26/18 05:20 06/25/18 21:00 Active Medications Acetaminophen (Tylenol Suppository -) 650 mg MS Q6H PRN PRN Reason: FEVER Last Admin: 06/25/18 22:03 Dose: 650 mg Albuterol/Ipratropium (Duoneb -) 1 amp NEB RQID [facility] Last Admin: 06/26/18 07:30 Dose: 1 amp Baclofen (Lioresal -) 10 mg PO TID [facility] Last Admin: 06/26/18 05:43 Dose: Not Given Bisacodyl (Dulcolax Suppository -) 10 mg RC DAILY PRN PRN Reason: CONSTIPATION Last Admin: 06/22/18 23:25 Dose: 10 mg Calcium Carbonate/Cholecalciferol (Os-Hitesh 500+D -) 1 tab PO BID [facility] Last Admin: 06/25/18 22:02 Dose: Not Given Chlorhexidine Gluconate (Peridex -) 30 ml MM BID [facility] Last Admin: 06/26/18 10:02 Dose: Not Given Cholecalciferol (Vitamin D3 -) 400 unit PO DAILY [facility] Last Admin: 06/25/18 14:03 Dose: Not Given Amino Acids (Clinimix -) 1,000 mls @ 42 mls/hr IV Q12H [facility] Last Admin: 06/26/18 04:00 Dose: Not Given Vancomycin HCl 1,500 mg/ (Dextrose) 500 mls @ 250 mls/hr IVPB Q24H [facility]; Protocol Last Admin: 06/25/18 16:00 Dose: 250 mls/hr Meropenem 1 gm/ Dextrose 100 mls @ 200 mls/hr IVPB Q8H-IV [facility] Last Admin: 06/26/18 09:59 Dose: 200 mls/hr Levofloxacin (Levaquin 750 Mg Premixed Ivpb -) 750 mg in 150 mls @ 150 mls/hr IVPB DAILY [facility]; Protocol Last Admin: 06/26/18 09:59 Dose: 150 mls/hr Levetiracetam (Keppra Injection -) 500 mg IVPB BID [facility] Last Admin: 06/26/18 09:53 Dose: 500 mg Loratadine (Claritin -) 10 mg PO DAILY [facility] Last Admin: 06/26/18 10:02 Dose: Not Given Lorazepam (Ativan Injection -) 2 mg IVPUSH TID [facility] Last Admin: 06/26/18 05:43 Dose: 2 mg Nystatin (Mycostatin Ointment -) 1 applic TP BID [facility] Last Admin: 06/26/18 10:00 Dose: 1 applic Pantoprazole Sodium (Protonix Iv) 20 mg IVPUSH DAILY [facility] Last Admin: 06/26/18 10:19 Dose: 20 mg Scopolamine HBr (Transderm-Scop -) 1 patch TD Q72H [facility] Last Admin: 06/24/18 11:24 Dose: 1 patch Senna (Senna -) 2 tab PO DAILY [facility] Last Admin: 06/25/18 14:03 Dose: Not Given Constitutional: Yes: No Distress, Audible rhonchi Eyes: Yes: Conjunctiva Clear, EOM Intact HENT: Yes: Atraumatic Neck: Yes: Supple, Trachea Midline Cardiovascular: Yes: Regular Rate and Rhythm Respiratory: Yes: Cough, Diminished, On Nasal O2, Rhonchi. No: Accessory Muscle Use, Rales, SOB, SOB on Exertion, Stridor, Tachypnea, Wheezes ...Inspection: Yes: WNL ...Clubbing: No Gastrointestinal: Yes: Normal Bowel Sounds, Soft Renal/: Yes: WNL Musculoskeletal: Yes: Joint Stiffness Extremities: Yes: Shortened Edema: No Peripheral Pulses WNL: Yes Integumentary: Yes: WNL Neurological: Yes: Alert Psychiatric: Yes: Alert Labs: Laboratory Results - last 24 hr 06/24/18 06/26/18 06/26/18 16:30 06:10 06:10 WBC 8.6 RBC 2.43 L Hgb 8.5 L Hct 23.8 L MCV 97.9 H MCH 34.9 H MCHC 35.7 RDW 14.9 Plt Count 333 MPV 7.5 Sodium 135 L Potassium 3.1 L Chloride 94 L Carbon Dioxide 34 H Anion Gap 7 L BUN 6 L Creatinine 0.4 L Creat Clearance w eGFR > 60 Random Glucose 111 H Calcium 8.2 L Phosphorus 2.6 Magnesium 1.9 Pleural Fluid Source Pleural Pleural Color Yellow Pleural Appearance Slightly cloudy Pleural WBC 277 Pleural RBC 499 Pleural Neutrophils 0 Pleural Lymphocytes 11 Pleural Macrophages 89 Problem List - Problems (1) Pneumonia Code(s): J18.9 - PNEUMONIA, UNSPECIFIED ORGANISM (2) Aspiration pneumonia Code(s): J69.0 - PNEUMONITIS DUE TO INHALATION OF FOOD AND VOMIT (3) Fever Code(s): R50.9 - FEVER, UNSPECIFIED (4) Altered mental status Code(s): R41.82 - ALTERED MENTAL STATUS, UNSPECIFIED Qualifiers: Altered mental status type: unspecified Qualified Code(s): R41.82 - Altered mental status, unspecified (5) Cerebral palsy Code(s): G80.9 - CEREBRAL PALSY, UNSPECIFIED (6) Constipation Code(s): K59.00 - CONSTIPATION, UNSPECIFIED (7) Functional quadriplegia Code(s): R53.2 - FUNCTIONAL QUADRIPLEGIA (8) Mental retardation Code(s): F79 - UNSPECIFIED INTELLECTUAL DISABILITIES (9) Seizures Code(s): R56.9 - UNSPECIFIED CONVULSIONS Assessment/Plan Follow pleural fluid analysis/cultures: Prelim (-) ABX per ID Aspiration precautions O2 as needed PO when cleared by S&S VTE prophylaxis BD TX Chest PT OOB to her own wheelchair May need PEG Dr Alex Problem List - Problems (1) Pneumonia Code(s): J18.9 - PNEUMONIA, UNSPECIFIED ORGANISM (2) Aspiration pneumonia Code(s): J69.0 - PNEUMONITIS DUE TO INHALATION OF FOOD AND VOMIT (3) Fever Code(s): R50.9 - FEVER, UNSPECIFIED (4) Altered mental status Code(s): R41.82 - ALTERED MENTAL STATUS, UNSPECIFIED Qualifiers: Altered mental status type: unspecified Qualified Code(s): R41.82 - Altered mental status, unspecified (5) Cerebral palsy Code(s): G80.9 - CEREBRAL PALSY, UNSPECIFIED (6) Constipation Code(s): K59.00 - CONSTIPATION, UNSPECIFIED (7) Functional quadriplegia Code(s): R53.2 - FUNCTIONAL QUADRIPLEGIA (8) Mental retardation Code(s): F79 - UNSPECIFIED INTELLECTUAL DISABILITIES (9) Seizures Code(s): R56.9 - UNSPECIFIED CONVULSIONS
--- NOTE | 2018-06-26 14:15 | PN ---
Physical Exam: SUBJECTIVE: Patient seen and examined, breathing more comfortably, non verbal, aide at bedside OBJECTIVE: Vital Signs Period Temp Pulse Resp BP Sys/Ascencio Pulse Ox Last 24 Hr 99.4 F-100.9 F 105-110 22-24 101-138/56-76 96-97 GENERAL: less tachypneic today Chest: poor effort, improved coarse rales, decreased air entry all over Abdomen:Soft, positive bowel sounds, No voluntary or involuntary guarding or rigidity Extremities: contractures Laboratory Results - last 24 hr 06/26/18 06/26/18 06:10 06:10 WBC 8.6 RBC 2.43 L Hgb 8.5 L Hct 23.8 L MCV 97.9 H MCH 34.9 H MCHC 35.7 RDW 14.9 Plt Count 333 MPV 7.5 Sodium 135 L Potassium 3.1 L Chloride 94 L Carbon Dioxide 34 H Anion Gap 7 L BUN 6 L Creatinine 0.4 L Creat Clearance w eGFR > 60 Random Glucose 111 H Calcium 8.2 L Phosphorus 2.6 Magnesium 1.9 Active Medications Generic Name Dose Route Start Last Admin Trade Name Freq PRN Reason Stop Dose Admin Acetaminophen 650 mg 06/21/18 08:58 06/25/18 22:03 Tylenol Suppository - HI 650 mg Q6H PRN Administration FEVER Baclofen 10 mg 06/10/18 08:00 06/26/18 13:32 Lioresal - PO Not Given TID [facility] Bisacodyl 10 mg 06/10/18 14:38 06/22/18 23:25 Dulcolax Suppository - RC 10 mg DAILY PRN Administration CONSTIPATION Calcium Carbonate/Cholecalciferol 1 tab 06/10/18 22:00 06/26/18 13:31 Os-Hitesh 500+D - PO Not Given BID [facility] Chlorhexidine Gluconate 30 ml 06/10/18 22:00 06/26/18 10:02 Peridex - MM Not Given BID [facility] Cholecalciferol 400 unit 06/11/18 10:00 06/26/18 13:31 Vitamin D3 - PO Not Given DAILY [facility] Amino Acids 1,000 mls @ 42 mls/hr 06/20/18 15:45 06/26/18 04:00 Clinimix - IV Not Given Q12H [facility] Vancomycin HCl 1,500 mg/ 500 mls @ 250 mls/hr 06/21/18 15:00 06/25/18 16:00 Dextrose IVPB 250 mls/hr Q24H [facility] Administration Protocol Meropenem 1 gm/ Dextrose 100 mls @ 200 mls/hr 06/23/18 18:00 06/26/18 09:59 IVPB 200 mls/hr Q8H-IV [facility] Administration Levofloxacin 750 mg in 150 mls @ 150 mls/hr 06/24/18 12:15 06/26/18 09:59 Levaquin 750 Mg Premixed Ivpb - IVPB 150 mls/hr DAILY [facility] Administration Protocol Levetiracetam 500 mg 06/10/18 22:00 06/26/18 09:53 Keppra Injection - IVPB 500 mg BID [facility] Administration Loratadine 10 mg 06/10/18 14:45 06/26/18 10:02 Claritin - PO Not Given DAILY [facility] Lorazepam 2 mg 06/21/18 14:00 06/26/18 05:43 Ativan Injection - IVPUSH 2 mg TID [facility] Administration Nystatin 1 applic 06/21/18 22:00 06/26/18 10:00 Mycostatin Ointment - TP 1 applic BID [facility] Administration Pantoprazole Sodium 20 mg 06/22/18 10:00 06/26/18 10:19 Protonix Iv IVPUSH 20 mg DAILY [facility] Administration Scopolamine HBr 1 patch 06/24/18 12:00 06/24/18 11:24 Transderm-Scop - TD 1 patch Q72H [facility] Administration Senna 2 tab 06/11/18 10:00 06/26/18 13:31 Senna - PO Not Given DAILY [facility] ASSESSMENT/PLAN: 52 yom with PMHx of mental retardation, cerebral palsy with spastic quadriplegia , scoliosis, epilepsy(last seizure activity February of 2017, currently receiving diazepam 5 mg 3 tabs po BID and Keppra 500 mg BID), b/l foot contractures, 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 Follow up pleural fluid studies, neg so far. (Called lab, pleural fluid chemistry send out) Meropenem, day 4, levaquin day 3 (after 14 days of zosyn), Vanco day 12, levels noted. Fever curve and respiratory status seem to be improving , monitor for now. KUB. Abdominal imaging if persistent fevers and no clear etiology Hold off on steroids for now. Standing and prn nebs. Scopolamine patch to possibly decrease secretions and aspiration. Blood cx neg so far. Strict NPO for now. Discussed TPN option with familiy, declined central access or TPN but agreable to PEG when medically able to. On clinimix, continue. Aspiration precautions. Possible IR guided PEG placement when medical issues improve, NG tube night before intended procedure. Unable to take PO meds. Ativan IV TID while NPO given h/o seizures when tapered off benzos. Nystatin cream. Replete phos prn. DVTPPX dispo pending clinical improvement. Close respiratory status monitoring for now. Plan discussed with aide at bedside and nusring in detail,all questions answered. Visit type - Emergency Visit Emergency Visit: Yes ED Registration Date: 06/09/18 Care time: The patient presented to the Emergency Department on the above date and was hospitalized for further evaluation of their emergent condition. - New Patient This patient is new to me today: No - Critical Care Critical Care patient: No - Discharge Referral Referred to [facility] Med P.C.: No
[2018-06-26] MEDS: VANCOMYCIN 1,500 MG in DEXTROSE 5%-WATER - 500 ML IVPB SCH (15:02)
--- NOTE | 2018-06-26 17:43 | PN ---
Progress Note, Physician History of Present Illness: Pt is alert, without acute respiratory distress. Suctioned earlier with copious secretions. Remains febrile. 101.6F while on antibiotics. - Current Medication List Current Medications: Active Medications Acetaminophen (Tylenol Suppository -) 650 mg [place] Q6H PRN PRN Reason: FEVER Last Admin: 06/25/18 22:03 Dose: 650 mg Baclofen (Lioresal -) 10 mg PO TID [facility] Last Admin: 06/26/18 13:32 Dose: Not Given Bisacodyl (Dulcolax Suppository -) 10 mg RC DAILY PRN PRN Reason: CONSTIPATION Last Admin: 06/22/18 23:25 Dose: 10 mg Calcium Carbonate/Cholecalciferol (Os-Hitesh 500+D -) 1 tab PO BID [facility] Last Admin: 06/26/18 13:31 Dose: Not Given Chlorhexidine Gluconate (Peridex -) 30 ml MM BID [facility] Last Admin: 06/26/18 10:02 Dose: Not Given Cholecalciferol (Vitamin D3 -) 400 unit PO DAILY [facility] Last Admin: 06/26/18 13:31 Dose: Not Given Fat Emulsion Intravenous (Intralipid -) 250 ml IV DAILY@2200 [facility] Amino Acids (Clinimix -) 1,000 mls @ 42 mls/hr IV Q12H [facility] Last Admin: 06/26/18 16:01 Dose: Not Given Vancomycin HCl 1,500 mg/ (Dextrose) 500 mls @ 250 mls/hr IVPB Q24H [facility]; Protocol Last Admin: 06/26/18 15:02 Dose: 250 mls/hr Meropenem 1 gm/ Dextrose 100 mls @ 200 mls/hr IVPB Q8H-IV [facility] Last Admin: 06/26/18 09:59 Dose: 200 mls/hr Levofloxacin (Levaquin 750 Mg Premixed Ivpb -) 750 mg in 150 mls @ 150 mls/hr IVPB DAILY [facility]; Protocol Last Admin: 06/26/18 09:59 Dose: 150 mls/hr Levetiracetam (Keppra Injection -) 500 mg IVPB BID [facility] Last Admin: 06/26/18 09:53 Dose: 500 mg Loratadine (Claritin -) 10 mg PO DAILY [facility] Last Admin: 06/26/18 10:02 Dose: Not Given Lorazepam (Ativan Injection -) 2 mg IVPUSH TID [facility] Last Admin: 06/26/18 14:00 Dose: 2 mg Nystatin (Mycostatin Ointment -) 1 applic TP BID [facility] Last Admin: 06/26/18 10:00 Dose: 1 applic Pantoprazole Sodium (Protonix Iv) 20 mg IVPUSH DAILY [facility] Last Admin: 06/26/18 10:19 Dose: 20 mg Scopolamine HBr (Transderm-Scop -) 1 patch TD Q72H [facility] Last Admin: 06/24/18 11:24 Dose: 1 patch Senna (Senna -) 2 tab PO DAILY [facility] Last Admin: 06/26/18 13:31 Dose: Not Given - Objective Vital Signs: Vital Signs Temperature 99.4 F 06/26/18 05:57 Pulse Rate 105 H 06/26/18 05:20 Respiratory Rate 22 H 06/26/18 05:20 Blood Pressure 138/76 06/26/18 05:20 O2 Sat by Pulse Oximetry (%) 96 06/25/18 21:00 Constitutional: Yes: No Distress Cardiovascular: Yes: Regular Rate and Rhythm Respiratory: Yes: Rhonchi (diffuse) Gastrointestinal: Yes: Normal Bowel Sounds, Soft Neurological: Yes: Alert, Other (nonverbal) Labs: CBC, BMP 06/26/18 06:10 06/26/18 06:10 INR, PTT INR 1.14 (0.83-1.09) H 06/10/18 06:00 Microbiology 06/24/18 16:30 Pleural Fluid PETE Preparation - Preliminary 06/24/18 16:30 Pleural Fluid Fungal Culture - Preliminary 06/24/18 16:30 Pleural Fluid Gram Stain - Final 06/24/18 16:30 Pleural Fluid Body Fluid Culture - Preliminary NO AEROBIC GROWTH, 24 HRS 06/20/18 16:00 Blood - Peripheral Venous Blood Culture - Final NO GROWTH AFTER 5 DAYS INCUBATION 06/20/18 15:20 Blood - Peripheral Venous Blood Culture - Final NO GROWTH AFTER 5 DAYS INCUBATION 06/24/18 13:05 Urine - Urine - Catheterized Urine Culture - Final NO GROWTH OBTAINED 06/24/18 13:05 Urine For Antigen Detection Legionella Antigen - Final 06/24/18 13:05 Urine For Antigen Detection Streptococcus pneumoniae Antigen (M - Final 06/20/18 17:00 Urine - Urine - Catheterized Urine Culture - Final NO GROWTH OBTAINED 06/12/18 20:30 Blood - Peripheral Venous Blood Culture - Final NO GROWTH AFTER 5 DAYS INCUBATION 06/12/18 17:00 Blood - Peripheral Venous Blood Culture - Final NO GROWTH AFTER 5 DAYS INCUBATION 06/09/18 18:00 Blood - Peripheral Venous Blood Culture - Final NO GROWTH AFTER 5 DAYS INCUBATION 06/09/18 17:30 Blood - Peripheral Venous Blood Culture - Final NO GROWTH AFTER 5 DAYS INCUBATION 06/13/18 04:10 Urine - Urine - Catheterized Urine Culture - Final NO GROWTH OBTAINED 06/13/18 04:10 Urine For Antigen Detection Legionella Antigen - Final 06/13/18 04:10 Urine For Antigen Detection Streptococcus pneumoniae Antigen (M - Final 06/09/18 22:59 Urine - Urine - Catheterized Urine Culture - Final NO GROWTH OBTAINED 06/10/18 14:30 Nasopharyngeal Swab Influenza Types A,B Antigen - Final 06/10/18 14:30 Nasopharyngeal Swab - Final Problem List - Problems (1) Fever Code(s): R50.9 - FEVER, UNSPECIFIED (2) Cerebral palsy Code(s): G80.9 - CEREBRAL PALSY, UNSPECIFIED (3) Functional quadriplegia Code(s): R53.2 - FUNCTIONAL QUADRIPLEGIA (4) Mental retardation Code(s): F79 - UNSPECIFIED INTELLECTUAL DISABILITIES (5) Seizures Code(s): R56.9 - UNSPECIFIED CONVULSIONS (6) Pneumonia Code(s): J18.9 - PNEUMONIA, UNSPECIFIED ORGANISM Assessment/Plan Fever - persistent despite broad spectrum antibiotics, unclear etiology Pneumonia, likely aspiration Pleural effusion s/p drainage by IR Severe MR -- all cultures neg. so far, pleural fluid culture neg. 24hrs -- cont. antibiotics for now -- agree with abd imaging -- cont. suctioning, aspiration precautions -- repeat sputum culture if secretions persist cont. monitor vitals, temp trend currently without acute distress
[2018-06-26] MEDS ORDERED: PT OWN MED DRAWER 7, Y5N ONE (21:30)
[2018-06-26] MEDS: FAT EMULSIONS 20% 250 ML PREMIX INFUS.BAG IV SCH ×2 (22:22→22:23)
[2018-06-27] MEDS: ACETAMINOPHEN 325 MG SUPP.RECT PR PRN ×3 (01:47→23:00)
[2018-06-27] MEDS: MEROPENEM 1 GM in DEXTROSE 5%-WATER 100 ML IVPB SCH ×3 (02:19→17:45)
[2018-06-27] MEDS: AMINO ACIDS 4.25%/D5W 1,000 ML IV SCH (04:32)
--- NOTE | 2018-06-27 05:30 | HOSP ---
Subjective - Review of Symptoms Events since last encounter: Paged by nurse because pt had lost IV access. Saw pt at bedside and attempted to get IV access with Dr. Zeng in the left AC as well as R upper chest multiple times, but were all unsuccessful. Will sign out to day team as pt is on multiple meds and needs access. Physical Examination Vital Signs: Vital Signs Temperature 99.7 F H 06/27/18 04:48 Pulse Rate 110 H 06/27/18 04:48 Respiratory Rate 20 06/27/18 04:48 Blood Pressure 122/72 06/27/18 04:48 O2 Sat by Pulse Oximetry (%) 95 06/26/18 09:00 Labs: CBC, BMP 06/26/18 06:10 06/26/18 06:10
[2018-06-27] MEDS: LORazepam 2 MG/ML SDV VIAL IVPUSH SCH ×3 (05:37→22:00)
[2018-06-27] MEDS: BACLOFEN 10 MG TABLET (FP) PO SCH ×3 (05:37→22:00)
[2018-06-27 07:20] LABS: BASO % 0.7 % (0-2.0); EOS % 2.2 % (0-4.5); HEMATOCRIT 23.7 % (32.4-45.2); HEMOGLOBIN 8.8 GM/dL (10.7-15.3); LYMPH % 10.2 % (8-40); MCH 38.2 pg (25.7-33.7); MCHC 37.2 g/dl (32.0-36.0); MEAN CELL VOLUME 102.6 fl (80-96); MONO % 8.5 % (3.8-10.2); NEUT % 78.4 % (42.8-82.8); PLATELET COUNT 438 K/MM3 (134-434); RBC 2.31 M/mm3 (3.60-5.2); RDW 14.3 % (11.6-15.6); WHITE BLOOD COUNT 6.6 K/mm3 (4.0-10.0)
[2018-06-27 08:05] LABS: ALBUMIN 2.5 g/dl (3.4-5.0); ALK PHOS 94 U/L (45-117); ANION GAP -3 MMOL/L (8-16); BILIRUBIN,TOTAL 0.9 mg/dL (0.2-1); BLOOD UREA NITROGEN 7 mg/dL (7-18); CHLORIDE 99 mmol/L (98-107); CO2 34 mmol/L (21-32); CREATININE 0.3 mg/dL (0.55-1.3); GLUCOSE,RANDOM 93 mg/dL (74-106); MAGNESIUM 1.9 mg/dL (1.8-2.4); PHOSPHOROUS 1.2 mg/dL (2.5-4.9); POTASSIUM 3.5 mmol/L (3.5-5.1); SGOT/AST 19 U/L (15-37); SGPT/ALT 19 U/L (13-61); SODIUM 130 mmol/L (136-145); TOT PROT 6.1 g/dl (6.4-8.2)
--- NOTE | 2018-06-27 08:48 | PN ---
Teaching Attending Note Name of Resident: Pedro Morejon ATTENDING PHYSICIAN STATEMENT I saw and evaluated the patient. I reviewed the resident's note and discussed the case with the resident. I agree with the resident's findings and plan as documented with exceptions below. SUBJECTIVE: patient seen and examined. non verbal, some tachypnea. OBJECTIVE: Vital Signs Period Temp Pulse Resp BP Sys/Ascencio Pulse Ox Last 24 Hr 99.7 F-101.6 F 103-118 20-22 112-147/72-80 95-100 Intake & Output 06/24/18 06/25/18 06/26/18 06/27/18 23:59 23:59 23:59 23:59 Intake Total 904 1136 2262 512 Balance 904 1136 2262 512 General; lying in bed, mild tachypnea, no acute distress Chest: scattered coarse rales, but improved Abdomen: soft, mild distension unchanged, positive bowel sounds Extremities: contractures Active Medications Acetaminophen (Tylenol Suppository -) 650 mg MO Q6H PRN PRN Reason: FEVER Last Admin: 06/27/18 08:33 Dose: 650 mg Baclofen (Lioresal -) 10 mg PO TID [facility] Last Admin: 06/27/18 05:37 Dose: Not Given Bisacodyl (Dulcolax Suppository -) 10 mg RC DAILY PRN PRN Reason: CONSTIPATION Last Admin: 06/22/18 23:25 Dose: 10 mg Calcium Carbonate/Cholecalciferol (Os-Hitesh 500+D -) 1 tab PO BID [facility] Last Admin: 06/26/18 21:27 Dose: Not Given Chlorhexidine Gluconate (Peridex -) 30 ml MM BID [facility] Last Admin: 06/26/18 21:27 Dose: Not Given Cholecalciferol (Vitamin D3 -) 400 unit PO DAILY [facility] Last Admin: 06/26/18 13:31 Dose: Not Given Fat Emulsion Intravenous (Intralipid -) 250 ml IV DAILY@2200 [facility] Last Admin: 06/26/18 22:23 Dose: 250 ml Amino Acids (Clinimix -) 1,000 mls @ 42 mls/hr IV Q12H [facility] Last Admin: 06/27/18 04:32 Dose: Not Given Vancomycin HCl 1,500 mg/ (Dextrose) 500 mls @ 250 mls/hr IVPB Q24H [facility]; Protocol Last Admin: 06/26/18 15:02 Dose: 250 mls/hr Meropenem 1 gm/ Dextrose 100 mls @ 200 mls/hr IVPB Q8H-IV [facility] Last Admin: 06/27/18 02:19 Dose: Not Given Levofloxacin (Levaquin 750 Mg Premixed Ivpb -) 750 mg in 150 mls @ 150 mls/hr IVPB DAILY [facility]; Protocol Last Admin: 06/26/18 09:59 Dose: 150 mls/hr Levetiracetam (Keppra Injection -) 500 mg IVPB BID [facility] Last Admin: 06/26/18 21:26 Dose: 500 mg Loratadine (Claritin -) 10 mg PO DAILY [facility] Last Admin: 06/26/18 10:02 Dose: Not Given Lorazepam (Ativan Injection -) 2 mg IVPUSH TID [facility] Last Admin: 06/27/18 05:37 Dose: Not Given Nystatin (Mycostatin Ointment -) 1 applic TP BID [facility] Last Admin: 06/26/18 21:43 Dose: 1 applic Pantoprazole Sodium (Protonix Iv) 20 mg IVPUSH DAILY [facility] Last Admin: 06/26/18 10:19 Dose: 20 mg Scopolamine HBr (Transderm-Scop -) 1 patch TD Q72H [facility] Last Admin: 06/24/18 11:24 Dose: 1 patch Senna (Senna -) 2 tab PO DAILY [facility] Last Admin: 06/26/18 13:31 Dose: Not Given Laboratory Results - last 24 hr 06/27/18 06/27/18 06:30 06:30 WBC 6.6 RBC 2.31 L Hgb 8.8 L Hct 23.7 L MCV 102.6 H MCH 38.2 H MCHC 37.2 H RDW 14.3 Plt Count 438 H D MPV 7.0 L Absolute Neuts (auto) 5.2 Neutrophils % 78.4 Lymphocytes % 10.2 D Monocytes % 8.5 Eosinophils % 2.2 Basophils % 0.7 Nucleated RBC % 0 Sodium 130 L Potassium 3.5 Chloride 99 Carbon Dioxide 34 H Anion Gap -3 L BUN 7 Creatinine 0.3 L Creat Clearance w eGFR > 60 Random Glucose 93 Calcium 9.0 Phosphorus 1.2 L Magnesium 1.9 Total Bilirubin 0.9 AST 19 ALT 19 Alkaline Phosphatase 94 Total Protein 6.1 L Albumin 2.5 L ASSESSMENT AND PLAN: 52 yom with PMHx of mental retardation, cerebral palsy with spastic quadriplegia , scoliosis, epilepsy(last seizure activity February of 2017, currently receiving diazepam 5 mg 3 tabs po BID and Keppra 500 mg BID), b/l foot contractures, 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 Pleural fluid studies neg so far. (Called lab, pleural fluid chemistry send out) Meropenem, day 5, levaquin day 4 (after 14 days of zosyn), Vanco day 13, levels noted. Persistent fevers. Discussed with ID, plan to hold levaquin/vanco for today, continue meropenem Mother agreable to central access as needed for medications and TPN. Ongoing fevers, tenuous respiratory, high aspiration risk with NG or PEG feedings. Strict NPO for now. Surgery input appreciated. Central line place. Nutriton/renal input for possible TPN Plan for IR guided PEG when fevers improved and respiratory status stable, will need NG placed night before as discussed with Dr. Cruz. No abdominal concerns currently to warrant additional imaging. Hold off on steroids for now. Standing and prn nebs. Scopolamine patch to possibly decrease secretions and aspiration. Blood cx neg so far. Aspiration precautions. Ativan IV TID while NPO given h/o seizures when tapered off benzos. Nystatin cream. Replete phos prn. DVTPPX dispo pending clinical improvement. Close respiratory status monitoring for now. Plan discussed with mother and aide at bedside and ID/renal,all questions answered.
[2018-06-27] MEDS: levETIRAcetam 500 MG/5 ML INJECTION VIAL IVPB SCH ×2 (09:43→22:00)
[2018-06-27] MEDS: PANTOPRAZOLE SODIUM 40 MG VIAL IVPUSH SCH (09:43)
[2018-06-27] MEDS: CHLORHEXIDINE GLUCONATE 0.12% 15ML CUP MM SCH ×2 (09:56→22:04)
[2018-06-27] MEDS: SENNOSIDES 8.6MG TABLET (FP) PO SCH (09:56)
[2018-06-27] MEDS: LORATADINE 10 MG TABLET PO SCH (09:56)
[2018-06-27] MEDS: CALCIUM 500MG/VIT-D 200 UNITS COMBO TABLET (FP) PO SCH ×2 (09:56→22:04)
[2018-06-27] MEDS: CHOLECALCIFEROL (VITAMIN D3) 400 UNIT TABLET (FP) PO SCH (09:56)
--- NOTE | 2018-06-27 09:56 | PN ---
Physical Exam: SUBJECTIVE: Patient seen and examined this AM. Overnight events noted. Pt without IV access. Pt resting comfortably in bed and improved from Wednesday as per aide. OBJECTIVE: Vital Signs Period Temp Pulse Resp BP Sys/Ascencio Pulse Ox Last 24 Hr 99.7 F-101.6 F 103-118 20-22 112-147/72-80 100 GENERAL: Awake,nonverbal, in no acute distress HEAD: Microcephalic, atraumatic. EYES: PERRL, no scleral icterus EARS, NOSE, THROAT: oropharynx with mucus secretions. Moist mucous membranes. Audible gurgling noted LUNGS: Rhonchi diffusely, expiratory wheezes HEART: Regular rate and rhythm, normal S1 and S2 without murmur ABDOMEN: Soft, nontender to palpation, normoactive bowel sounds MUSCULOSKELETAL: Severe levoscoliosis EXTREMITIES: Contracted, trace dependent edema in b/l UE SKIN: Erythematous rash on left groin, perivaginal area, and continues around to perianal region, improving Laboratory Results - last 24 hr 06/27/18 06/27/18 06:30 06:30 WBC 6.6 RBC 2.31 L Hgb 8.8 L Hct 23.7 L MCV 102.6 H MCH 38.2 H MCHC 37.2 H RDW 14.3 Plt Count 438 H D MPV 7.0 L Absolute Neuts (auto) 5.2 Neutrophils % 78.4 Lymphocytes % 10.2 D Monocytes % 8.5 Eosinophils % 2.2 Basophils % 0.7 Nucleated RBC % 0 Sodium 130 L Potassium 3.5 Chloride 99 Carbon Dioxide 34 H Anion Gap -3 L BUN 7 Creatinine 0.3 L Creat Clearance w eGFR > 60 Random Glucose 93 Calcium 9.0 Phosphorus 1.2 L Magnesium 1.9 Total Bilirubin 0.9 AST 19 ALT 19 Alkaline Phosphatase 94 Total Protein 6.1 L Albumin 2.5 L Active Medications Generic Name Dose Route Start Last Admin Trade Name Freq PRN Reason Stop Dose Admin Acetaminophen 650 mg 06/21/18 08:58 06/27/18 08:33 Tylenol Suppository - [place] 650 mg Q6H PRN Administration FEVER Baclofen 10 mg 06/10/18 08:00 06/27/18 05:37 Lioresal - PO Not Given TID [facility] Bisacodyl 10 mg 06/10/18 14:38 06/22/18 23:25 Dulcolax Suppository - RC 10 mg DAILY PRN Administration CONSTIPATION Calcium Carbonate/Cholecalciferol 1 tab 06/10/18 22:00 06/26/18 21:27 Os-Hitesh 500+D - PO Not Given BID [facility] Chlorhexidine Gluconate 30 ml 06/10/18 22:00 06/26/18 21:27 Peridex - MM Not Given BID [facility] Cholecalciferol 400 unit 06/11/18 10:00 06/26/18 13:31 Vitamin D3 - PO Not Given DAILY [facility] Fat Emulsion Intravenous 250 ml 06/26/18 22:00 06/26/18 22:23 Intralipid - IV 250 ml DAILY@2200 [facility] Administration Amino Acids 1,000 mls @ 42 mls/hr 06/20/18 15:45 06/27/18 04:32 Clinimix - IV Not Given Q12H [facility] Vancomycin HCl 1,500 mg/ 500 mls @ 250 mls/hr 06/21/18 15:00 06/26/18 15:02 Dextrose IVPB 250 mls/hr Q24H [facility] Administration Protocol Meropenem 1 gm/ Dextrose 100 mls @ 200 mls/hr 06/23/18 18:00 06/27/18 02:19 IVPB Not Given Q8H-IV [facility] Levofloxacin 750 mg in 150 mls @ 150 mls/hr 06/24/18 12:15 06/26/18 09:59 Levaquin 750 Mg Premixed Ivpb - IVPB 150 mls/hr DAILY [facility] Administration Protocol Levetiracetam 500 mg 06/10/18 22:00 06/27/18 09:43 Keppra Injection - IVPB 500 mg BID [facility] Administration Loratadine 10 mg 06/10/18 14:45 06/26/18 10:02 Claritin - PO Not Given DAILY [facility] Lorazepam 2 mg 06/21/18 14:00 06/27/18 05:37 Ativan Injection - IVPUSH Not Given TID [facility] Nystatin 1 applic 06/21/18 22:00 06/26/18 21:43 Mycostatin Ointment - TP 1 applic BID [facility] Administration Pantoprazole Sodium 20 mg 06/22/18 10:00 06/27/18 09:43 Protonix Iv IVPUSH 20 mg DAILY [facility] Administration Scopolamine HBr 1 patch 06/24/18 12:00 06/24/18 11:24 Transderm-Scop - TD 1 patch Q72H [facility] Administration Senna 2 tab 06/11/18 10:00 06/26/18 13:31 Senna - PO Not Given DAILY [facility] ASSESSMENT/PLAN: 52 yo Female with PMH Cerebral Palsy with spastic quadriplegia, Mental Retardation, Epilepsy, Scoliosis presented from [facility] [place] for vomiting followed by high fevers and cough. Sepsis secondary to Aspiration pneumonia vs pneumonitis -Febrile 103.5 on admission, Tachycardic, tachypnic -Fevers improved from admission but continuing -Chest CT: RUL congestion suspicious for pneumonia vs pneumonitis -ID consult appreciated Meropenem 1gm IV Q8 -Ventolin NEBs QID -Pulmonology consult appreciated -Repeat blood/urine cultures negative, CXR unchanged -Modified barium swallow noted for possible silent aspiration, recommendation to consider PEG even if just for temporary feeding -Extensive discussion with Pts sister and mother, Family is amenable to PEG insertion if medically necessary for feeding -Family states that pt does better when sitting up in her wheelchair than when lying in bed -Still requiring O2 positionally, will attempt to wean off -Scopolamine Patch in attempt to decrease secretions -Repeat Chest CT with increasing infiltrate, IR Thoracentesis, initial fluid analysis negative, pending final results Severe Malnutrition -Pt has not tolerated PO or tube feeds for prolonged time -BMI 18.3 -Repeat weight -GI consulted for evaluation of possible PEG insertion, awaiting recommendation -Extensive conversation with family about possible need for PEG as well as temporary need for Central line and TPN -Family agreeable for PEG insertion, after extensive family discussion, they are amenable to CV line and TPN -Discussed with IR about possible PEG insertion, pt will need NG tube placed night before, pending clinical improvement -CV line placed today, Nephrology and dietary consulted for TPN recommendations Abdominal Distension - improved -KUB Flat plate - bowel distension concerning for ileus, no obstruction or fecal impaction noted -Feeds held with vomiting and concern for continued aspiration Epilepsy -Keppra 500 mg PO BID IV until tolerates PO -Ativan 2gm IV TID Spasticity -Pt on Baclofen 10 mg TID, holding as not tolerating NGT feeds -Ativan 2 gm IV TID DVT Prophylaxis -Heparin 5000 units SQ TID FEN -Fluids: none -Electrolytes: Low Mag, Low Phos, replete, BMP in AM -Nutrition: NPO, awaiting TPN recommendations, pt will likely need PEG Tube Placement Disposition Med/Surg Visit type - Emergency Visit Emergency Visit: Yes ED Registration Date: 06/09/18 Care time: The patient presented to the Emergency Department on the above date and was hospitalized for further evaluation of their emergent condition. - New Patient This patient is new to me today: No - Critical Care Critical Care patient: No
[2018-06-27] MEDS ORDERED: PT OWN MED DRAWER 7, Y5N ONE ×2 (10:32→17:44)
[2018-06-27] MEDS: NYSTATIN 100000 UNIT/GM TOPICAL OINTMENT 15 GM TUBE TP SCH ×2 (10:59→22:02)
[2018-06-27] MEDS: SCOPOLAMINE HYDROBROMIDE 1 PATCH PATCH.TD72 TD SCH (11:34)
--- NOTE | 2018-06-27 12:17 | PN ---
Progress Note, Physician History of Present Illness: patient continues to spike fever no definate source yet noted all cx are negative so far patient npo - Current Medication List Current Medications: Active Medications Acetaminophen (Tylenol Suppository -) 650 mg MD Q6H PRN PRN Reason: FEVER Last Admin: 06/27/18 08:33 Dose: 650 mg Baclofen (Lioresal -) 10 mg PO TID [facility] Last Admin: 06/27/18 05:37 Dose: Not Given Bisacodyl (Dulcolax Suppository -) 10 mg RC DAILY PRN PRN Reason: CONSTIPATION Last Admin: 06/22/18 23:25 Dose: 10 mg Calcium Carbonate/Cholecalciferol (Os-Hitesh 500+D -) 1 tab PO BID [facility] Last Admin: 06/27/18 09:56 Dose: Not Given Chlorhexidine Gluconate (Peridex -) 30 ml MM BID [facility] Last Admin: 06/27/18 09:56 Dose: Not Given Cholecalciferol (Vitamin D3 -) 400 unit PO DAILY [facility] Last Admin: 06/27/18 09:56 Dose: Not Given Fat Emulsion Intravenous (Intralipid -) 250 ml IV DAILY@2200 [facility] Last Admin: 06/26/18 22:23 Dose: 250 ml Amino Acids (Clinimix -) 1,000 mls @ 42 mls/hr IV Q12H [facility] Last Admin: 06/27/18 04:32 Dose: Not Given Meropenem 1 gm/ Dextrose 100 mls @ 200 mls/hr IVPB Q8H-IV [facility] Last Admin: 06/27/18 10:33 Dose: 200 mls/hr Levetiracetam (Keppra Injection -) 500 mg IVPB BID [facility] Last Admin: 06/27/18 09:43 Dose: 500 mg Loratadine (Claritin -) 10 mg PO DAILY [facility] Last Admin: 06/27/18 09:56 Dose: Not Given Lorazepam (Ativan Injection -) 2 mg IVPUSH TID [facility] Last Admin: 06/27/18 05:37 Dose: Not Given Nystatin (Mycostatin Ointment -) 1 applic TP BID [facility] Last Admin: 06/27/18 10:59 Dose: 1 applic Pantoprazole Sodium (Protonix Iv) 20 mg IVPUSH DAILY [facility] Last Admin: 06/27/18 09:43 Dose: 20 mg Scopolamine HBr (Transderm-Scop -) 1 patch TD Q72H [facility] Last Admin: 06/27/18 11:34 Dose: 1 patch Senna (Senna -) 2 tab PO DAILY [facility] Last Admin: 06/27/18 09:56 Dose: Not Given - Objective Vital Signs: Vital Signs Temperature 100.6 F H 06/27/18 10:00 Pulse Rate 118 H 06/27/18 08:34 Respiratory Rate 20 06/27/18 08:34 Blood Pressure 147/80 06/27/18 08:34 O2 Sat by Pulse Oximetry (%) 100 06/26/18 21:00 Constitutional: Yes: Other Neck: Yes: Supple Respiratory: Yes: Poor Air Entry, Rhonchi Gastrointestinal: Yes: Normal Bowel Sounds, Soft Neurological: Yes: Alert, Other Labs: CBC, BMP 06/27/18 06:30 06/27/18 06:30 INR, PTT INR 1.14 (0.83-1.09) H 06/10/18 06:00 Assessment/Plan Problem List - Problems (1) Pneumonia Code(s): J18.9 - PNEUMONIA, UNSPECIFIED ORGANISM (2) Aspiration pneumonia Code(s): J69.0 - PNEUMONITIS DUE TO INHALATION OF FOOD AND VOMIT (3) Fever Code(s): R50.9 - FEVER, UNSPECIFIED (4) Altered mental status Code(s): R41.82 - ALTERED MENTAL STATUS, UNSPECIFIED Qualifiers: Altered mental status type: unspecified Qualified Code(s): R41.82 - Altered mental status, unspecified (5) Cerebral palsy Code(s): G80.9 - CEREBRAL PALSY, UNSPECIFIED (6) Constipation Code(s): K59.00 - CONSTIPATION, UNSPECIFIED (7) Functional quadriplegia Code(s): R53.2 - FUNCTIONAL QUADRIPLEGIA (8) Mental retardation Code(s): F79 - UNSPECIFIED INTELLECTUAL DISABILITIES (9) Seizures Code(s): R56.9 - UNSPECIFIED CONVULSIONS patient continues to have repeats fevers inspite being on abx plan i am going to stop vanco and levaquin will continue meropenam ordered a sputum cx if possible we should gutierrez scan her nutrition rest as per the team
--- NOTE | 2018-06-27 12:23 | PN ---
Progress Note (short form) - Note Progress Note: Breathing is non-labored on NC O2. Less audible congestion. According to the mother/aide she was in her motorized chair most of the afternoon yesterday. Intake & Output 06/24/18 06/25/18 06/26/18 06/27/18 23:59 23:59 23:59 23:59 Intake Total 904 1136 2262 512 Balance 904 1136 2262 512 Last Vital Signs Temp Pulse Resp BP Pulse Ox 100.6 F H 118 H 20 147/80 100 06/27/18 10:00 06/27/18 08:34 06/27/18 08:34 06/27/18 08:34 06/26/18 21:00 Active Medications Acetaminophen (Tylenol Suppository -) 650 mg [place] Q6H PRN PRN Reason: FEVER Last Admin: 06/27/18 08:33 Dose: 650 mg Baclofen (Lioresal -) 10 mg PO TID [facility] Last Admin: 06/27/18 05:37 Dose: Not Given Bisacodyl (Dulcolax Suppository -) 10 mg RC DAILY PRN PRN Reason: CONSTIPATION Last Admin: 06/22/18 23:25 Dose: 10 mg Calcium Carbonate/Cholecalciferol (Os-Hitesh 500+D -) 1 tab PO BID [facility] Last Admin: 06/27/18 09:56 Dose: Not Given Chlorhexidine Gluconate (Peridex -) 30 ml MM BID [facility] Last Admin: 06/27/18 09:56 Dose: Not Given Cholecalciferol (Vitamin D3 -) 400 unit PO DAILY [facility] Last Admin: 06/27/18 09:56 Dose: Not Given Fat Emulsion Intravenous (Intralipid -) 250 ml IV DAILY@2200 [facility] Last Admin: 06/26/18 22:23 Dose: 250 ml Amino Acids (Clinimix -) 1,000 mls @ 42 mls/hr IV Q12H [facility] Last Admin: 06/27/18 04:32 Dose: Not Given Meropenem 1 gm/ Dextrose 100 mls @ 200 mls/hr IVPB Q8H-IV [facility] Last Admin: 06/27/18 10:33 Dose: 200 mls/hr Levetiracetam (Keppra Injection -) 500 mg IVPB BID [facility] Last Admin: 06/27/18 09:43 Dose: 500 mg Loratadine (Claritin -) 10 mg PO DAILY [facility] Last Admin: 06/27/18 09:56 Dose: Not Given Lorazepam (Ativan Injection -) 2 mg IVPUSH TID [facility] Last Admin: 06/27/18 05:37 Dose: Not Given Nystatin (Mycostatin Ointment -) 1 applic TP BID [facility] Last Admin: 06/27/18 10:59 Dose: 1 applic Pantoprazole Sodium (Protonix Iv) 20 mg IVPUSH DAILY [facility] Last Admin: 06/27/18 09:43 Dose: 20 mg Scopolamine HBr (Transderm-Scop -) 1 patch TD Q72H [facility] Last Admin: 06/27/18 11:34 Dose: 1 patch Senna (Senna -) 2 tab PO DAILY [facility] Last Admin: 06/27/18 09:56 Dose: Not Given Constitutional: Yes: No Distress, Less audible rhonchi Eyes: Yes: Conjunctiva Clear, EOM Intact HENT: Yes: Atraumatic Neck: Yes: Supple, Trachea Midline Cardiovascular: Yes: Regular Rate and Rhythm Respiratory: Yes: Cough, Diminished, On Nasal O2, Rhonchi. No: Accessory Muscle Use, Wheezes ...Inspection: Yes: WNL ...Clubbing: No Gastrointestinal: Yes: Normal Bowel Sounds, Soft Renal/: Yes: WNL Musculoskeletal: Yes: Joint Stiffness Extremities: Yes: Shortened Edema: No Peripheral Pulses WNL: Yes Integumentary: Yes: WNL Neurological: Yes: Awake Psychiatric: Yes: Awake Labs: Laboratory Results - last 24 hr 06/27/18 06/27/18 06:30 06:30 WBC 6.6 RBC 2.31 L Hgb 8.8 L Hct 23.7 L MCV 102.6 H MCH 38.2 H MCHC 37.2 H RDW 14.3 Plt Count 438 H D MPV 7.0 L Absolute Neuts (auto) 5.2 Neutrophils % 78.4 Lymphocytes % 10.2 D Monocytes % 8.5 Eosinophils % 2.2 Basophils % 0.7 Nucleated RBC % 0 Sodium 130 L Potassium 3.5 Chloride 99 Carbon Dioxide 34 H Anion Gap -3 L BUN 7 Creatinine 0.3 L Creat Clearance w eGFR > 60 Random Glucose 93 Calcium 9.0 Phosphorus 1.2 L Magnesium 1.9 Total Bilirubin 0.9 AST 19 ALT 19 Alkaline Phosphatase 94 Total Protein 6.1 L Albumin 2.5 L Problem List - Problems (1) Pneumonia Code(s): J18.9 - PNEUMONIA, UNSPECIFIED ORGANISM (2) Aspiration pneumonia Code(s): J69.0 - PNEUMONITIS DUE TO INHALATION OF FOOD AND VOMIT (3) Fever Code(s): R50.9 - FEVER, UNSPECIFIED (4) Altered mental status Code(s): R41.82 - ALTERED MENTAL STATUS, UNSPECIFIED Qualifiers: Altered mental status type: unspecified Qualified Code(s): R41.82 - Altered mental status, unspecified (5) Cerebral palsy Code(s): G80.9 - CEREBRAL PALSY, UNSPECIFIED (6) Constipation Code(s): K59.00 - CONSTIPATION, UNSPECIFIED (7) Functional quadriplegia Code(s): R53.2 - FUNCTIONAL QUADRIPLEGIA (8) Mental retardation Code(s): F79 - UNSPECIFIED INTELLECTUAL DISABILITIES (9) Seizures Code(s): R56.9 - UNSPECIFIED CONVULSIONS Assessment/Plan Follow final pleural fluid analysis/cultures: Prelim (-) ABX per ID Aspiration precautions O2 as needed For central access VTE prophylaxis BD TX Chest PT OOB to her own wheelchair May need PEG Dr Alex Problem List - Problems (1) Pneumonia Code(s): J18.9 - PNEUMONIA, UNSPECIFIED ORGANISM (2) Aspiration pneumonia Code(s): J69.0 - PNEUMONITIS DUE TO INHALATION OF FOOD AND VOMIT (3) Fever Code(s): R50.9 - FEVER, UNSPECIFIED (4) Altered mental status Code(s): R41.82 - ALTERED MENTAL STATUS, UNSPECIFIED Qualifiers: Altered mental status type: unspecified Qualified Code(s): R41.82 - Altered mental status, unspecified (5) Cerebral palsy Code(s): G80.9 - CEREBRAL PALSY, UNSPECIFIED (6) Constipation Code(s): K59.00 - CONSTIPATION, UNSPECIFIED (7) Functional quadriplegia Code(s): R53.2 - FUNCTIONAL QUADRIPLEGIA (8) Mental retardation Code(s): F79 - UNSPECIFIED INTELLECTUAL DISABILITIES (9) Seizures Code(s): R56.9 - UNSPECIFIED CONVULSIONS
--- NOTE | 2018-06-27 14:30 | PROC ---
Central Line Insertion - Procedure Note TIME OUT performed prior to this procedure with verbal confirmation of correct patient identity, correct side, agreement of the procedure, correct patient position, availability of necessary equipment. The consent form is complete and accurate. Risk of possible infection, bleeding and pneumothorax have been discussed with the patient. Safety precautions based on patient history or medication use has been addressed. Indication: Parenteral Nutrition Central Line: Triple Lumen Catheter Position: Supine Area prepped with Chlorhexidine solution then draped using sterile barrier protection. Anesthesia: Lidocaine 1% Technique used: Seldinger Ultrasound Guided Assistance: Yes Site: Right Internal Jugular Dark venous non-pulsatile flow noted from hub of needle. The catheter was introduced. Guide wire removed intact. Each port aspirated then flushed with sterile normal saline and capped. Line secured to skin with silk suture. Biopatch placed around base of line. Sterile occlusive dressing applied. No complications. Patient tolerated the procedure well. STAT chest xray ordered to confirm position and rule out pneumothorax Senior GABINO Culver was present and assisted in the entire exam and procedure.
[2018-06-27] MEDS: HEPARIN NA (PORCINE) 5,000 UNITS/ML 1ML VIAL SQ SCH ×2 (14:45→22:00)
[2018-06-27] MEDS ORDERED: LIDOCAINE HCL 1%, 10 MG/ML (50 mL VIAL) SQ ONE (15:45)
[2018-06-27] MEDS ORDERED: SODIUM PHOSPHATE - 30 MM in SODIUM CHLORIDE 250 ML IVPB ONE (17:08)
[2018-06-27] MEDS ORDERED: SODIUM PHOSPHATE - 30 MM in SODIUM CHLORIDE 500 ML IVPB ONE (17:14)
[2018-06-27 23:56] VITALS: BMI 17.2
[2018-06-28] MEDS: MEROPENEM 1 GM in DEXTROSE 5%-WATER 100 ML IVPB SCH ×3 (01:05→17:41)
[2018-06-28] MEDS: FAT EMULSIONS 20% 250 ML PREMIX INFUS.BAG IV SCH ×2 (01:54→22:47)
[2018-06-28] MEDS: LORazepam 2 MG/ML SDV VIAL IVPUSH SCH (05:47)
[2018-06-28] MEDS: HEPARIN NA (PORCINE) 5,000 UNITS/ML 1ML VIAL SQ SCH ×3 (05:47→22:47)
[2018-06-28] MEDS: BACLOFEN 10 MG TABLET (FP) PO SCH ×3 (05:47→22:00)
[2018-06-28] MEDS: ACETAMINOPHEN 325 MG SUPP.RECT PR PRN ×3 (06:30→22:00)
[2018-06-28 07:40] LABS: ANION GAP 7 MMOL/L (8-16); BLOOD UREA NITROGEN 6 mg/dL (7-18); CALCIUM 7.9 mg/dL (8.5-10.1); CHLORIDE 97 mmol/L (98-107); CO2 35 mmol/L (21-32); CREATININE 0.3 mg/dL (0.55-1.3); GLUCOSE,RANDOM 91 mg/dL (74-106); PHOSPHOROUS 2.2 mg/dL (2.5-4.9); SODIUM 140 mmol/L (136-145)
[2018-06-28 08:21] LABS: HEMOGLOBIN 8.3 GM/dL (10.7-15.3); MCH 34.6 pg (25.7-33.7); MCHC 35.9 g/dl (32.0-36.0); MEAN CELL VOLUME 96.4 fl (80-96); MEAN PLT VOLUME 7.1 fl (7.5-11.1); PLATELET COUNT 443 K/MM3 (134-434); RBC 2.39 M/mm3 (3.60-5.2); RDW 15.5 % (11.6-15.6)
[2018-06-28 08:42] LABS: TOTAL PROTEIN,PLEURAL FLUID 1.5
[2018-06-28 08:43] LABS: GLUCOSE,PLEURAL FLUID 103
[2018-06-28] MEDS: CHOLECALCIFEROL (VITAMIN D3) 400 UNIT TABLET (FP) PO SCH (09:54)
[2018-06-28] MEDS: CALCIUM 500MG/VIT-D 200 UNITS COMBO TABLET (FP) PO SCH ×2 (09:54→23:09)
[2018-06-28] MEDS: LORATADINE 10 MG TABLET PO SCH (09:54)
[2018-06-28] MEDS: CHLORHEXIDINE GLUCONATE 0.12% 15ML CUP MM SCH ×2 (09:54→23:00)
[2018-06-28] MEDS: SENNOSIDES 8.6MG TABLET (FP) PO SCH (09:54)
[2018-06-28] MEDS ORDERED: PT OWN MED DRAWER 7, Y5N ONE (09:56)
[2018-06-28] MEDS: PANTOPRAZOLE SODIUM 40 MG VIAL IVPUSH SCH (09:59)
[2018-06-28] MEDS: NYSTATIN 100000 UNIT/GM TOPICAL OINTMENT 15 GM TUBE TP SCH ×2 (10:00→23:00)
[2018-06-28] MEDS: levETIRAcetam 500 MG/5 ML INJECTION VIAL IVPB SCH ×2 (10:52→22:47)
--- NOTE | 2018-06-28 11:16 | PN ---
Progress Note (short form) - Note Progress Note: Breathing appears overall much improved on NC O2. Much less audible congestion. Noted R IJ TLC inserted last night. CXR: no acute process noted / resolution of previous infiltrates Intake & Output 06/25/18 06/26/18 06/27/18 06/28/18 23:59 23:59 23:59 23:59 Intake Total 1136 2262 1012 850 Balance 1136 2262 1012 850 Weight 94 lb 100 lb 6 oz Last Vital Signs Temp Pulse Resp BP Pulse Ox 100.2 F H 105 H 20 107/61 98 06/28/18 10:00 06/28/18 10:00 06/28/18 10:00 06/28/18 10:00 06/27/18 21:00 Active Medications Acetaminophen (Tylenol Suppository -) 650 mg ME Q6H PRN PRN Reason: FEVER Last Admin: 06/28/18 06:30 Dose: 650 mg Baclofen (Lioresal -) 10 mg PO TID [facility] Last Admin: 06/28/18 05:47 Dose: Not Given Bisacodyl (Dulcolax Suppository -) 10 mg RC DAILY PRN PRN Reason: CONSTIPATION Last Admin: 06/22/18 23:25 Dose: 10 mg Calcium Carbonate/Cholecalciferol (Os-Hitesh 500+D -) 1 tab PO BID [facility] Last Admin: 06/28/18 09:54 Dose: Not Given Chlorhexidine Gluconate (Peridex -) 30 ml MM BID [facility] Last Admin: 06/28/18 09:54 Dose: Not Given Cholecalciferol (Vitamin D3 -) 400 unit PO DAILY [facility] Last Admin: 06/28/18 09:54 Dose: Not Given Fat Emulsion Intravenous (Intralipid -) 250 ml IV DAILY@2200 [facility] Last Admin: 06/28/18 01:54 Dose: 250 ml Heparin Sodium (Porcine) (Heparin -) 5,000 unit SQ TID [facility] Last Admin: 06/28/18 05:47 Dose: 5,000 unit Meropenem 1 gm/ Dextrose 100 mls @ 200 mls/hr IVPB Q8H-IV [facility] Last Admin: 06/28/18 09:57 Dose: 200 mls/hr Levetiracetam (Keppra Injection -) 500 mg IVPB BID [facility] Last Admin: 06/28/18 10:52 Dose: 500 mg Loratadine (Claritin -) 10 mg PO DAILY [facility] Last Admin: 06/28/18 09:54 Dose: Not Given Lorazepam (Ativan Injection -) 2 mg IVPUSH TID [facility] Last Admin: 06/28/18 05:47 Dose: 2 mg Nystatin (Mycostatin Ointment -) 1 applic TP BID [facility] Last Admin: 06/28/18 10:00 Dose: 1 applic Pantoprazole Sodium (Protonix Iv) 20 mg IVPUSH DAILY [facility] Last Admin: 06/28/18 09:59 Dose: 20 mg Scopolamine HBr (Transderm-Scop -) 1 patch TD Q72H [facility] Last Admin: 06/27/18 11:34 Dose: 1 patch Senna (Senna -) 2 tab PO DAILY [facility] Last Admin: 06/28/18 09:54 Dose: Not Given Constitutional: Yes: No Distress, Less audible rhonchi Eyes: Yes: Conjunctiva Clear, EOM Intact HENT: Yes: Atraumatic Neck: Yes: Supple, Trachea Midline Cardiovascular: Yes: Regular Rate and Rhythm Respiratory: Yes: Cough, Diminished, On Nasal O2, Rhonchi. No: Accessory Muscle Use, Wheezes ...Inspection: Yes: WNL ...Clubbing: No Gastrointestinal: Yes: Normal Bowel Sounds, Soft Renal/: Yes: WNL Musculoskeletal: Yes: Joint Stiffness Extremities: Yes: Shortened Edema: No Peripheral Pulses WNL: Yes Integumentary: Yes: WNL Neurological: Yes: Awake Psychiatric: Yes: Awake Labs: Laboratory Results - last 24 hr 06/24/18 06/28/18 06/28/18 16:30 06:30 06:30 WBC 8.0 RBC 2.39 L Hgb 8.3 L Hct 23.0 L MCV 96.4 H D MCH 34.6 H MCHC 35.9 RDW 15.5 Plt Count 443 H MPV 7.1 L Sodium 140 Potassium 3.0 L Chloride 97 L Carbon Dioxide 35 H Anion Gap 7 L BUN 6 L Creatinine 0.3 L Creat Clearance w eGFR > 60 Random Glucose 91 Calcium 7.9 L Phosphorus 2.2 L Magnesium 2.0 Pleural Total Protein 1.5 Pleural Albumin 1 Pleural LDH 92 Pleural Glucose 103 Pleural Amylase 17 Pleural Triglycerides 14 Problem List - Problems (1) Pneumonia Code(s): J18.9 - PNEUMONIA, UNSPECIFIED ORGANISM (2) Aspiration pneumonia Code(s): J69.0 - PNEUMONITIS DUE TO INHALATION OF FOOD AND VOMIT (3) Fever Code(s): R50.9 - FEVER, UNSPECIFIED (4) Altered mental status Code(s): R41.82 - ALTERED MENTAL STATUS, UNSPECIFIED Qualifiers: Altered mental status type: unspecified Qualified Code(s): R41.82 - Altered mental status, unspecified (5) Cerebral palsy Code(s): G80.9 - CEREBRAL PALSY, UNSPECIFIED (6) Constipation Code(s): K59.00 - CONSTIPATION, UNSPECIFIED (7) Functional quadriplegia Code(s): R53.2 - FUNCTIONAL QUADRIPLEGIA (8) Mental retardation Code(s): F79 - UNSPECIFIED INTELLECTUAL DISABILITIES (9) Seizures Code(s): R56.9 - UNSPECIFIED CONVULSIONS Assessment/Plan ABX per ID: (?) consider drug holiday Aspiration precautions O2 as needed VTE prophylaxis BD TX Chest PT OOB to her own wheelchair May need PEG Consider reevaluate swallow to take enteral nutrition Dr Alex Problem List - Problems (1) Pneumonia Code(s): J18.9 - PNEUMONIA, UNSPECIFIED ORGANISM (2) Aspiration pneumonia Code(s): J69.0 - PNEUMONITIS DUE TO INHALATION OF FOOD AND VOMIT (3) Fever Code(s): R50.9 - FEVER, UNSPECIFIED (4) Altered mental status Code(s): R41.82 - ALTERED MENTAL STATUS, UNSPECIFIED Qualifiers: Altered mental status type: unspecified Qualified Code(s): R41.82 - Altered mental status, unspecified (5) Cerebral palsy Code(s): G80.9 - CEREBRAL PALSY, UNSPECIFIED (6) Constipation Code(s): K59.00 - CONSTIPATION, UNSPECIFIED (7) Functional quadriplegia Code(s): R53.2 - FUNCTIONAL QUADRIPLEGIA (8) Mental retardation Code(s): F79 - UNSPECIFIED INTELLECTUAL DISABILITIES (9) Seizures Code(s): R56.9 - UNSPECIFIED CONVULSIONS
[2018-06-28] MEDS ORDERED: POTASSIUM PHOSPHATE 15 MM in DEXTROSE 5%-WATER - 250 ML IVPB ONE (12:02)
--- NOTE | 2018-06-28 12:04 | CONSULT ---
Consult Consult Specialty:: Nephrology Reason for Consultation:: TPN - History of Present Illness Chief Complaint: initially presented with fever and cough History of Present Illness: Pt is a 52 year old female with pmhx of developemental delay, epilepsy, cerebral palsy who presented from [facility] for fever and cough. She has been hospitalized since 06/09. Pt is unable to give history. Chart was reviewed and I discussed the hospital course with the medical team. Pt has been NPO for about 2 weeks. They called for TPN. Plan is for a peg tube once stable. Pt did not tolerated an NG tube and is at risk for aspiration. - History Source History Provided By: Medical Record - Past Medical History RELATIONS MGR: Yes: Seizure, Other (MR, cerebral palsy) Gastrointestinal: Yes: Constipation, GERD Heme/Onc: Yes: Anemia Additional Medical History: Profound MR - Alcohol/Substance Use Hx Alcohol Use: No - Smoking History Smoking history: Unknown if ever smoked Have you smoked in the past 12 months: No Aproximately how many cigarettes per day: 0 - Social History Usual Living Arrangement: Long-Term ADL: Support Services Home Medications - Allergies Allergies/Adverse Reactions: Allergies Allergy/AdvReac Type Severity Reaction Status Date / Time No Known Allergies Allergy Verified 06/09/18 15:38 - Home Medications Home Medications: Ambulatory Orders Bisacodyl [Biscolax] 10 mg RC DAILY PRN 02/21/17 Calcium 500Mg/Vit-D 200 Units [Os-Hitesh 500+D -] 1 combo PO BID 02/21/17 Cetirizine HCl [24Hour Allergy] 10 mg PO DAILY 02/21/17 Chlorhexidine Gluconate 30 ml MM BID 02/21/17 Diazepam [Valium] 15 mg PO BID 02/21/17 Ranitidine [Zantac -] 150 mg PO BID 02/21/17 Sennosides [Senna] 2 tab PO DAILY 02/21/17 levETIRAcetam [Keppra Oral Solution -] 500 mg PO BID #1 bottle 03/02/17 Baclofen 10 mg PO TID 06/13/17 Albuterol 0.083% Nebulizer Suzanne [Ventolin 0.083% Nebulizer Soln -] 1 neb NEB Q6H 06/09/18 Cholecalciferol (Vitamin D3) [Vitamin D3] 400 unit PO DAILY 06/09/18 Diazepam [Diastat Acudial] 1 each RC DAILY 06/09/18 Olopatadine HCl [Pataday] 2.5 ml OP DAILY 06/09/18 Psyllium Husk [Metamucil] 0.4 gm PO DAILY 06/09/18 Omeprazole 20 mg PO DAILY 06/10/18 Family Disease History - Family Disease History Family History: Unable to Obtain Review of Systems Unable to obtain ROS, reason: MR and CP Physical Exam Vital Signs: Vital Signs Temperature 100.2 F H 06/28/18 10:00 Pulse Rate 105 H 06/28/18 10:00 Respiratory Rate 20 06/28/18 10:00 Blood Pressure 107/61 06/28/18 10:00 O2 Sat by Pulse Oximetry (%) 98 06/27/18 21:00 Constitutional: Yes: Calm Eyes: Yes: Conjunctiva Clear Cardiovascular: Yes: S1, S2 Respiratory: Yes: On Nasal O2 Gastrointestinal: Yes: Soft Renal/: Yes: Incontinence Musculoskeletal: Yes: Muscle Weakness Edema: No Neurological: Yes: Pre-Existing Deficit Labs: CBC, BMP 06/28/18 06:30 06/28/18 06:30 Imaging - Results Chest X-ray: Report Reviewed Problem List - Problems (1) Hypokalemia Code(s): E87.6 - HYPOKALEMIA (2) Aspiration pneumonia Code(s): J69.0 - PNEUMONITIS DUE TO INHALATION OF FOOD AND VOMIT (3) Fever Code(s): R50.9 - FEVER, UNSPECIFIED (4) Pneumonia Code(s): J18.9 - PNEUMONIA, UNSPECIFIED ORGANISM (5) Cerebral palsy Code(s): G80.9 - CEREBRAL PALSY, UNSPECIFIED (6) Constipation Code(s): K59.00 - CONSTIPATION, UNSPECIFIED Assessment/Plan Current Medications Generic Name Dose Route Start Last Admin Trade Name Freq PRN Reason Stop Dose Admin Acetaminophen 650 mg 06/21/18 08:58 06/28/18 06:30 Tylenol Suppository - ID 650 mg Q6H PRN Administration FEVER Baclofen 10 mg 06/10/18 08:00 06/28/18 05:47 Lioresal - PO Not Given TID [facility] Bisacodyl 10 mg 06/10/18 14:38 06/22/18 23:25 Dulcolax Suppository - RC 10 mg DAILY PRN Administration CONSTIPATION Calcium Carbonate/Cholecalciferol 1 tab 06/10/18 22:00 06/28/18 09:54 Os-Hitesh 500+D - PO Not Given BID [facility] Chlorhexidine Gluconate 30 ml 06/10/18 22:00 06/28/18 09:54 Peridex - MM Not Given BID [facility] Cholecalciferol 400 unit 06/11/18 10:00 06/28/18 09:54 Vitamin D3 - PO Not Given DAILY [facility] Fat Emulsion Intravenous 250 ml 06/26/18 22:00 06/28/18 01:54 Intralipid - IV 250 ml DAILY@2200 [facility] Administration Heparin Sodium (Porcine) 5,000 unit 06/27/18 14:30 06/28/18 05:47 Heparin - SQ 5,000 unit TID [facility] Administration Meropenem 1 gm/ Dextrose 100 mls @ 200 mls/hr 06/23/18 18:00 06/28/18 09:57 IVPB 200 mls/hr Q8H-IV [facility] Administration Potassium Chloride 10 meq in 100 mls @ 100 mls/hr 06/28/18 12:15 Potassium Chloride 10 Meq Premix Ivpb - IVPB 06/28/18 15:14 Q60M [facility] Potassium Phosphate 15 mm/ 255 mls @ 62.5 mls/hr 06/28/18 12:02 Dextrose IVPB 06/28/18 16:06 ONCE ONE Levetiracetam 500 mg 06/10/18 22:00 06/28/18 10:52 Keppra Injection - IVPB 500 mg BID [facility] Administration Loratadine 10 mg 06/10/18 14:45 06/28/18 09:54 Claritin - PO Not Given DAILY [facility] Lorazepam 2 mg 06/21/18 14:00 06/28/18 05:47 Ativan Injection - IVPUSH 2 mg TID [facility] Administration Nystatin 1 applic 06/21/18 22:00 06/28/18 10:00 Mycostatin Ointment - TP 1 applic BID [facility] Administration Pantoprazole Sodium 20 mg 06/22/18 10:00 06/28/18 09:59 Protonix Iv IVPUSH 20 mg DAILY [facility] Administration Scopolamine HBr 1 patch 06/24/18 12:00 06/27/18 11:34 Transderm-Scop - TD 1 patch Q72H [facility] Administration Senna 2 tab 06/11/18 10:00 06/28/18 09:54 Senna - PO Not Given DAILY [facility] Impression 1. PNA 2. hypokalemia 3. hypophosphatemia 4. epilepsy 5. cerebral palsy 6. developemental delay 7. pleural effusion 8. malnutrition 9. developemental delay Plan - replace phos - replace mag - will start tpn, called and discussed with dietary team - orders written - will start gradually - monitor for signs on refeeding - check phos levels daily Dr Snow
[2018-06-28] MEDS: KCL 10 MEQ IVPB 10 MEQ/100 ML INFUS.BAG IVPB SCH ×3 (12:19→14:08)
--- NOTE | 2018-06-28 13:08 | PN ---
Progress Note, Physician History of Present Illness: improving less congestion only on one abx more awake and alert still with fevers - Current Medication List Current Medications: Active Medications Acetaminophen (Tylenol Suppository -) 650 mg RI Q6H PRN PRN Reason: FEVER Last Admin: 06/28/18 12:49 Dose: 650 mg Baclofen (Lioresal -) 10 mg PO TID [facility] Last Admin: 06/28/18 05:47 Dose: Not Given Bisacodyl (Dulcolax Suppository -) 10 mg RC DAILY PRN PRN Reason: CONSTIPATION Last Admin: 06/22/18 23:25 Dose: 10 mg Calcium Carbonate/Cholecalciferol (Os-Hitesh 500+D -) 1 tab PO BID [facility] Last Admin: 06/28/18 09:54 Dose: Not Given Chlorhexidine Gluconate (Peridex -) 30 ml MM BID [facility] Last Admin: 06/28/18 09:54 Dose: Not Given Cholecalciferol (Vitamin D3 -) 400 unit PO DAILY [facility] Last Admin: 06/28/18 09:54 Dose: Not Given Fat Emulsion Intravenous (Intralipid -) 250 ml IV DAILY@2200 [facility] Last Admin: 06/28/18 01:54 Dose: 250 ml Heparin Sodium (Porcine) (Heparin -) 5,000 unit SQ TID [facility] Last Admin: 06/28/18 05:47 Dose: 5,000 unit Meropenem 1 gm/ Dextrose 100 mls @ 200 mls/hr IVPB Q8H-IV [facility] Last Admin: 06/28/18 09:57 Dose: 200 mls/hr Potassium Chloride (Potassium Chloride 10 Meq Premix Ivpb -) 10 meq in 100 mls @ 100 mls/hr IVPB Q60M [facility] Stop: 06/28/18 15:14 Last Admin: 06/28/18 12:19 Dose: 100 mls/hr Potassium Phosphate 15 mm/ (Dextrose) 255 mls @ 62.5 mls/hr IVPB ONCE ONE Stop: 06/28/18 16:06 Last Admin: 06/28/18 12:49 Dose: 62.5 mls/hr Fat Emulsion Intravenous (Intralipid -) 250 mls @ 20.833 mls/hr IV DAILY@2200 [facility] Levetiracetam (Keppra Injection -) 500 mg IVPB BID [facility] Last Admin: 06/28/18 10:52 Dose: 500 mg Loratadine (Claritin -) 10 mg PO DAILY [facility] Last Admin: 06/28/18 09:54 Dose: Not Given Lorazepam (Ativan Injection -) 2 mg IVPUSH TID [facility] Last Admin: 06/28/18 05:47 Dose: 2 mg Nystatin (Mycostatin Ointment -) 1 applic TP BID [facility] Last Admin: 06/28/18 10:00 Dose: 1 applic Pantoprazole Sodium (Protonix Iv) 20 mg IVPUSH DAILY [facility] Last Admin: 06/28/18 09:59 Dose: 20 mg Scopolamine HBr (Transderm-Scop -) 1 patch TD Q72H [facility] Last Admin: 06/27/18 11:34 Dose: 1 patch Senna (Senna -) 2 tab PO DAILY [facility] Last Admin: 06/28/18 09:54 Dose: Not Given - Objective Vital Signs: Vital Signs Temperature 100.0 F H 06/28/18 12:47 Pulse Rate 105 H 06/28/18 10:00 Respiratory Rate 20 06/28/18 10:00 Blood Pressure 107/61 06/28/18 10:00 O2 Sat by Pulse Oximetry (%) 98 06/27/18 21:00 Constitutional: Yes: No Distress, Calm Cardiovascular: Yes: Regular Rate and Rhythm, Tachycardia Respiratory: Yes: Regular, CTA Bilaterally Gastrointestinal: Yes: Normal Bowel Sounds, Soft Musculoskeletal: Yes: WNL Extremities: Yes: Other Neurological: Yes: Alert, Other Labs: CBC, BMP 06/28/18 06:30 06/28/18 06:30 INR, PTT INR 1.14 (0.83-1.09) H 06/10/18 06:00 Assessment/Plan Problem List - Problems (1) Pneumonia Code(s): J18.9 - PNEUMONIA, UNSPECIFIED ORGANISM (2) Aspiration pneumonia Code(s): J69.0 - PNEUMONITIS DUE TO INHALATION OF FOOD AND VOMIT (3) Fever Code(s): R50.9 - FEVER, UNSPECIFIED (4) Altered mental status Code(s): R41.82 - ALTERED MENTAL STATUS, UNSPECIFIED Qualifiers: Altered mental status type: unspecified Qualified Code(s): R41.82 - Altered mental status, unspecified (5) Cerebral palsy Code(s): G80.9 - CEREBRAL PALSY, UNSPECIFIED (6) Constipation Code(s): K59.00 - CONSTIPATION, UNSPECIFIED (7) Functional quadriplegia Code(s): R53.2 - FUNCTIONAL QUADRIPLEGIA (8) Mental retardation Code(s): F79 - UNSPECIFIED INTELLECTUAL DISABILITIES (9) Seizures Code(s): R56.9 - UNSPECIFIED CONVULSIONS patient continues to have repeats fevers inspite being on abx plan continue to monitor hydration continue abx for now will consider giving abx holiday aspiration precautions
--- NOTE | 2018-06-28 13:47 | PN ---
Physical Exam: SUBJECTIVE: Patient seen and examined this AM. She is resting comfortably in bed and smiling. OBJECTIVE: Vital Signs Period Temp Pulse Resp BP Sys/Ascencio Pulse Ox Last 24 Hr 100.0 F-101.6 F 105-120 20-20 101-118/61-68 98 GENERAL: Awake,nonverbal, in no acute distress HEAD: Microcephalic, atraumatic. EYES: PERRL, no scleral icterus EARS, NOSE, THROAT: oropharynx with mucus secretions. Moist mucous membranes. LUNGS: Rhonchi diffusely, expiratory wheezes HEART: Regular rate and rhythm, normal S1 and S2 without murmur ABDOMEN: Soft, nontender to palpation, normoactive bowel sounds MUSCULOSKELETAL: Severe levoscoliosis EXTREMITIES: Contracted, trace dependent edema in b/l UE SKIN: Erythematous rash on left groin, perivaginal area, and continues around to perianal region, mostly resolved, no other ulcerations or wounds Laboratory Results - last 24 hr 06/24/18 06/28/18 06/28/18 16:30 06:30 06:30 WBC 8.0 RBC 2.39 L Hgb 8.3 L Hct 23.0 L MCV 96.4 H D MCH 34.6 H MCHC 35.9 RDW 15.5 Plt Count 443 H MPV 7.1 L Sodium 140 Potassium 3.0 L Chloride 97 L Carbon Dioxide 35 H Anion Gap 7 L BUN 6 L Creatinine 0.3 L Creat Clearance w eGFR > 60 Random Glucose 91 Calcium 7.9 L Phosphorus 2.2 L Magnesium 2.0 Pleural Total Protein 1.5 Pleural Albumin 1 Pleural LDH 92 Pleural Glucose 103 Pleural Amylase 17 Pleural Triglycerides 14 Active Medications Generic Name Dose Route Start Last Admin Trade Name Freq PRN Reason Stop Dose Admin Acetaminophen 650 mg 06/21/18 08:58 06/28/18 12:49 Tylenol Suppository - [place] 650 mg Q6H PRN Administration FEVER Baclofen 10 mg 06/10/18 08:00 06/28/18 05:47 Lioresal - PO Not Given TID [facility] Bisacodyl 10 mg 06/10/18 14:38 06/22/18 23:25 Dulcolax Suppository - RC 10 mg DAILY PRN Administration CONSTIPATION Calcium Carbonate/Cholecalciferol 1 tab 06/10/18 22:00 10/16/18 09:54 Os-Hitesh 500+D - PO Not Given BID [facility] Chlorhexidine Gluconate 30 ml 06/10/18 22:00 06/28/18 09:54 Peridex - MM Not Given BID [facility] Cholecalciferol 400 unit 06/11/18 10:00 06/28/18 09:54 Vitamin D3 - PO Not Given DAILY [facility] Fat Emulsion Intravenous 250 ml 06/26/18 22:00 06/28/18 01:54 Intralipid - IV 250 ml DAILY@2200 [facility] Administration Heparin Sodium (Porcine) 5,000 unit 06/27/18 14:30 06/28/18 05:47 Heparin - SQ 5,000 unit TID [facility] Administration Meropenem 1 gm/ Dextrose 100 mls @ 200 mls/hr 06/23/18 18:00 06/28/18 09:57 IVPB 200 mls/hr Q8H-IV [facility] Administration Potassium Chloride 10 meq in 100 mls @ 100 mls/hr 06/28/18 12:15 06/28/18 13: 15 Potassium Chloride 10 Meq Premix Ivpb - IVPB 06/28/18 15:14 100 mls/hr Q60M [facility] Administration Potassium Phosphate 15 mm/ 255 mls @ 62.5 mls/hr 06/28/18 12:02 06/28/18 12: 49 Dextrose IVPB 06/28/18 16:06 62.5 mls/hr ONCE ONE Administration Fat Emulsion Intravenous 250 mls @ 20.833 mls/hr 06/28/18 22:00 Intralipid - IV DAILY@2200 [facility] Potassium Phosphate 15 mm/ 1,000 mls @ 41.667 mls/hr 06/28/18 16:00 Multivitamins/Minerals 10 ml/ IVPB Sterile Water/ Amino Acids/ DAILY@1600 [facility] Dextrose Levetiracetam 500 mg 06/10/18 22:00 06/28/18 10:52 Keppra Injection - IVPB 500 mg BID [facility] Administration Loratadine 10 mg 06/10/18 14:45 06/28/18 09:54 Claritin - PO Not Given DAILY [facility] Lorazepam 2 mg 06/21/18 14:00 06/28/18 05:47 Ativan Injection - IVPUSH 2 mg TID [facility] Administration Nystatin 1 applic 06/21/18 22:00 10/16/18 10:00 Mycostatin Ointment - TP 1 applic BID [facility] Administration Pantoprazole Sodium 20 mg 06/22/18 10:00 06/28/18 09:59 Protonix Iv IVPUSH 20 mg DAILY [facility] Administration Scopolamine HBr 1 patch 06/24/18 12:00 06/27/18 11:34 Transderm-Scop - TD 1 patch Q72H [facility] Administration Senna 2 tab 06/11/18 10:00 06/28/18 09:54 Senna - PO Not Given DAILY [facility] ASSESSMENT/PLAN: 52 yo Female with PMH Cerebral Palsy with spastic quadriplegia, Mental Retardation, Epilepsy, Scoliosis presented from [facility] for vomiting followed by high fevers and cough. Sepsis secondary to Aspiration pneumonia vs pneumonitis -Febrile 103.5 on admission, Tachycardic, tachypnic -Fevers improved from admission but continuing -Chest CT: RUL congestion suspicious for pneumonia vs pneumonitis -ID consult appreciated Meropenem 1gm IV Q8 -Ventolin NEBs QID -Pulmonology consult appreciated -Repeat blood/urine cultures negative, CXR unchanged -Modified barium swallow noted for possible silent aspiration, recommendation to consider PEG even if just for temporary feeding -Extensive discussion with Pts sister and mother, Family is amenable to PEG insertion if medically necessary for feeding -Family states that pt does better when sitting up in her wheelchair than when lying in bed -wean off O2 -Scopolamine Patch in attempt to decrease secretions -Repeat Chest CT with increasing infiltrate, IR Thoracentesis, initial fluid analysis negative Severe Malnutrition -Pt has not tolerated PO or tube feeds for prolonged time -BMI 18.4 -GI consulted for evaluation of possible PEG insertion, awaiting recommendation -Extensive conversation with family about possible need for PEG as well as temporary need for Central line and TPN -Family agreeable for PEG insertion -Discussed with IR about possible PEG insertion, pt will need NG tube placed night before, pending clinical improvement -CV line noted out today, replaced by surgical PA, CXR pending Abdominal Distension - improved -KUB Flat plate - bowel distension concerning for ileus, no obstruction or fecal impaction noted -Feeds held with vomiting and concern for continued aspiration Epilepsy -Keppra 500 mg PO BID IV until tolerates PO -Ativan 2gm IV TID Spasticity -Pt on Baclofen 10 mg TID, holding as not tolerating NGT feeds -Ativan 2 gm IV TID DVT Prophylaxis -Heparin 5000 units SQ TID FEN -Fluids: none -Electrolytes: Low Mag, Low Phos, replete, BMP in AM -Nutrition: NPO, TPN as per nephrology, pt will likely need PEG Tube Placement Disposition Med/Surg Visit type - Emergency Visit Emergency Visit: Yes ED Registration Date: 06/09/18 Care time: The patient presented to the Emergency Department on the above date and was hospitalized for further evaluation of their emergent condition. - New Patient This patient is new to me today: No - Critical Care Critical Care patient: No
--- NOTE | 2018-06-28 13:53 | PN ---
Teaching Attending Note Name of Resident: Pedro Morejon ATTENDING PHYSICIAN STATEMENT I saw and evaluated the patient. I reviewed the resident's note and discussed the case with the resident. I agree with the resident's findings and plan as documented. SUBJECTIVE:resting comfortable OBJECTIVE: Last Vital Signs Temp Pulse Resp BP Pulse Ox 100.0 F H 105 H 20 107/61 98 06/28/18 12:47 06/28/18 10:00 06/28/18 10:00 06/28/18 10:00 06/27/18 21:00 General NAD, tracking Lungs course breath sounds anteriorly Abdomen soft NT/ND back no signs of pressure ulcer or infection on backside. 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 Sepsis due to RUL PNA- Tm 101.6. continues to have intermittent fevers. has been NPO but can still have silent aspirations. abx switched to Meropenem for 6 days now without resolution of fevers. thoracentesis done on 06/24 that is negative. no obvious other signs of infection. will obtain CT chest/abdomen/ pelvis to evaluate for other source. central line placed yesterday for TPN. ID on board. 2. severe malnutriton- as evident by body habitus and BMI. concern for aspiration. family agreed to PEG placement. plan for IR to be done once afebrile. Central line placed yesterday to initate TPN. Nephro consulted for orders. 3. Abdominal distention-was tolerating feeds. appears stable 4. Acute hypoxic respiratory distress- due to PNA. titrate down supplemental oxygen as tolerated. spO2 >90%. nebs/ chest PT. pulm on board 5. Lactic acidosis, resolved 6. Cerebral palsy 7. Seizure disorder- no seizure like motion noted. cont anti-eleptics. 8. Mental retardation 9. Scoliosis 10. DVT ppx- lovenox
--- NOTE | 2018-06-28 15:32 | PATH ---
Cytology Non-Gynecological Report Patient Name: FERN SAENZ [facility]. Rec. #: [id number] /Age/Gender: 1965 (Age: 52) / F Account: [id number] Location: [address] [place] [address] Taken: 06/24/2018 Received: 06/28/2018 Reported: 06/28/2018 Physicians: Kenn Chowdhury M.D. Specimen(s) Received LEFT PLEURAL FLUID Clinical History Pleural effusion Final Diagnosis PLEURAL FLUID, LEFT, THORACENTESIS: SATISFACTORY FOR EVALUATION NO MALIGNANT CELLS IDENTIFIED. MESOTHELIAL CELLS, MACROPHAGES, AND FEW LYMPHOCYTES PRESENT. Electronically Signed Kamla Lockett M.D. Gross Description Approximately 50 cc of yellow fluid received fixed in 50% alcohol. One cytofunnel prepared and Pap stained. One cellblock prepared.
[2018-06-28] MEDS ORDERED: [UNRECOGNIZED DRUG - OTHER] IVPB SCH (16:00)
[2018-06-28] MEDS ORDERED: POTASSIUM PHOSPHATE IVPB SCH (16:00)
[2018-06-28] MEDS ORDERED: MULTIVIT IVPB SCH (16:00)
--- NOTE | 2018-06-28 16:36 | PROC ---
Central Line Insertion - Procedure Note TIME OUT performed prior to this procedure with verbal confirmation of correct patient identity, correct side, agreement of the procedure, correct patient position, availability of necessary equipment. The consent form is complete and accurate. Risk of possible infection, bleeding and pneumothorax have been discussed with the patient. Safety precautions based on patient history or medication use has been addressed. Indication: Parenteral Nutrition Consent on Chart: Yes Central Line: Triple Lumen Catheter Position: Trendelenburg Area prepped with Chlorhexidine solution then draped using sterile barrier protection. Anesthesia: Lidocaine 1% Technique used: Seldinger Ultrasound Guided Assistance: Yes Site: Left Internal Jugular Dark venous non-pulsatile flow noted from hub of needle. The catheter was introduced. Guide wire removed intact. Each port aspirated then flushed with sterile normal saline and capped. Line secured to skin with silk suture. Biopatch placed around base of line. Sterile occlusive dressing applied. No complications. Patient tolerated the procedure well. STAT chest xray ordered to confirm position and rule out pneumothorax
[2018-06-28] MEDS ORDERED: FAT EMULSIONS 250 ML IV SCH (22:00)
[2018-06-29] MEDS: MEROPENEM 1 GM in DEXTROSE 5%-WATER 100 ML IVPB SCH ×2 (01:18→09:57)
[2018-06-29] MEDS: BACLOFEN 10 MG TABLET (FP) PO SCH ×3 (05:58→21:19)
[2018-06-29] MEDS: HEPARIN NA (PORCINE) 5,000 UNITS/ML 1ML VIAL SQ SCH ×2 (06:00→13:51)
[2018-06-29] MEDS: ACETAMINOPHEN 325 MG SUPP.RECT PR PRN (06:52)
[2018-06-29 07:45] LABS: ALBUMIN 2.2 g/dl (3.4-5.0); ALK PHOS 86 U/L (45-117); ANION GAP 8 MMOL/L (8-16); BILIRUBIN,TOTAL 0.4 mg/dL (0.2-1); BLOOD UREA NITROGEN 9 mg/dL (7-18); CALCIUM 8.1 mg/dL (8.5-10.1); CHLORIDE 98 mmol/L (98-107); CHOLESTEROL 145 mg/dL (50-200); CO2 33 mmol/L (21-32); CREATININE 0.3 mg/dL (0.55-1.3); GLUCOSE,RANDOM 107 mg/dL (74-106); HDL CHOLESTEROL 31 mg/dL (40-60); POTASSIUM 3.6 mmol/L (3.5-5.1); SGOT/AST 17 U/L (15-37); SGPT/ALT 14 U/L (13-61); SODIUM 139 mmol/L (136-145); TOT PROT 5.5 g/dl (6.4-8.2); TRIGLYCERIDES 179 mg/dL (0-150)
[2018-06-29] MEDS ORDERED: PT OWN MED DRAWER 7, Y5N ONE (09:47)
--- NOTE | 2018-06-29 09:54 | PN ---
Physical Exam: SUBJECTIVE: Patient seen and examined this AM. She is resting comfortably in bed. OBJECTIVE: Vital Signs Period Temp Pulse Resp BP Sys/Ascencio Pulse Ox Last 24 Hr 99.7 F-100.9 F 98-105 20-20 95-114/55-67 97 GENERAL: Awake,nonverbal, in no acute distress HEAD: Microcephalic, atraumatic. EYES: PERRL, no scleral icterus EARS, NOSE, THROAT: oropharynx with mucus secretions. Moist mucous membranes. LUNGS: Rhonchi diffusely HEART: Regular rate and rhythm, normal S1 and S2 without murmur ABDOMEN: Soft, nontender to palpation, normoactive bowel sounds MUSCULOSKELETAL: Severe levoscoliosis EXTREMITIES: Contracted, trace dependent edema in b/l UE SKIN: Minimal erythematous rash on left groin, mostly resolved Laboratory Results - last 24 hr 06/29/18 06:00 Sodium 139 Potassium 3.6 Chloride 98 Carbon Dioxide 33 H Anion Gap 8 BUN 9 Creatinine 0.3 L Creat Clearance w eGFR > 60 Random Glucose 107 H Calcium 8.1 L Phosphorus 2.0 L Magnesium 2.0 Total Bilirubin 0.4 AST 17 ALT 14 Alkaline Phosphatase 86 Total Protein 5.5 L Albumin 2.2 L Triglycerides 179 H Cholesterol 145 Total LDL Cholesterol 89 HDL Cholesterol 31 L Active Medications Generic Name Dose Route Start Last Admin Trade Name Freq PRN Reason Stop Dose Admin Acetaminophen 650 mg 06/21/18 08:58 06/29/18 06:52 Tylenol Suppository - [place] 650 mg Q6H PRN Administration FEVER Baclofen 10 mg 06/10/18 08:00 06/29/18 05:58 Lioresal - PO Not Given TID [facility] Bisacodyl 10 mg 06/10/18 14:38 06/22/18 23:25 Dulcolax Suppository - RC 10 mg DAILY PRN Administration CONSTIPATION Calcium Carbonate/Cholecalciferol 1 tab 06/10/18 22:00 06/28/18 23:09 Os-Hitesh 500+D - PO Not Given BID [facility] Chlorhexidine Gluconate 30 ml 06/10/18 22:00 06/28/18 23:00 Peridex - MM Not Given BID [facility] Cholecalciferol 400 unit 06/11/18 10:00 06/28/18 09:54 Vitamin D3 - PO Not Given DAILY [facility] Fat Emulsion Intravenous 250 ml 06/26/18 22:00 10/16/18 22:47 Intralipid - IV 250 ml DAILY@2200 [facility] Administration Heparin Sodium (Porcine) 5,000 unit 06/27/18 14:30 06/29/18 06:00 Heparin - SQ 5,000 unit TID [facility] Administration Meropenem 1 gm/ Dextrose 100 mls @ 200 mls/hr 06/23/18 18:00 06/29/18 01:18 IVPB 200 mls/hr Q8H-IV [facility] Administration Potassium Phosphate 15 mm/ 1,000 mls @ 41.667 mls/hr 06/28/18 16:00 06/28/18 17:40 Multivitamins/Minerals 10 ml/ IVPB 41.667 mls/hr Sterile Water/ Amino Acids/ DAILY@1600 [facility] Administration Dextrose Levetiracetam 500 mg 06/10/18 22:00 06/28/18 22:47 Keppra Injection - IVPB 500 mg BID [facility] Administration Loratadine 10 mg 06/10/18 14:45 06/28/18 09:54 Claritin - PO Not Given DAILY [facility] Nystatin 1 applic 06/21/18 22:00 06/28/18 23:00 Mycostatin Ointment - TP Not Given BID [facility] Pantoprazole Sodium 20 mg 06/22/18 10:00 06/28/18 09:59 Protonix Iv IVPUSH 20 mg DAILY [facility] Administration Scopolamine HBr 1 patch 06/24/18 12:00 06/27/18 11:34 Transderm-Scop - TD 1 patch Q72H [facility] Administration Senna 2 tab 06/11/18 10:00 06/28/18 09:54 Senna - PO Not Given DAILY [facility] ASSESSMENT/PLAN: 52 yo Female with PMH Cerebral Palsy with spastic quadriplegia, Mental Retardation, Epilepsy, Scoliosis presented from [facility] for vomiting followed by high fevers and cough. Sepsis secondary to Aspiration pneumonia vs pneumonitis -Febrile 103.5 on admission, Tachycardic, tachypnic -Fevers improved from admission but continuing -Chest CT: RUL congestion suspicious for pneumonia vs pneumonitis -ID consult appreciated Meropenem 1gm IV Q8 -Ventolin NEBs QID -Pulmonology consult appreciated -Repeat CXR pending -Modified barium swallow noted for possible silent aspiration -Family states that pt does better when sitting up in her wheelchair than when lying in bed -wean off O2 -Scopolamine Patch in attempt to decrease secretions -Repeat Chest CT with increasing infiltrate, IR Thoracentesis, initial fluid analysis negative -CT Chest/Abdomen/Pelvis with contrast Severe Malnutrition -Pt has not tolerated PO or tube feeds for prolonged time -BMI 18.4 -GI consulted for evaluation of possible PEG insertion, awaiting recommendation -Extensive conversation with family about possible need for PEG as well as temporary need for Central line and TPN -Currently receiving TPN via central line as per nephrology -Family agreeable for PEG insertion -Discussed with IR about possible PEG insertion, NG tube tonight for contrast prep, KUB for 7AM Epilepsy -Keppra 500 mg PO BID IV until tolerates PO -Ativan 2gm IV TID Spasticity -Pt on Baclofen 10 mg TID, holding as not tolerating NGT feeds -Ativan 2 gm IV TID DVT Prophylaxis -Heparin 5000 units SQ TID, hold tonight for possible PEG placement FEN -Fluids: none -Electrolytes: Low Mag, Low Phos, replete, BMP in AM -Nutrition: NPO, TPN as per nephrology, pt possibly for PEG Tube Placement in AM Disposition Med/Surg Visit type - Emergency Visit Emergency Visit: Yes ED Registration Date: 06/09/18 Care time: The patient presented to the Emergency Department on the above date and was hospitalized for further evaluation of their emergent condition. - New Patient This patient is new to me today: No - Critical Care Critical Care patient: No
[2018-06-29] MEDS: NYSTATIN 100000 UNIT/GM TOPICAL OINTMENT 15 GM TUBE TP SCH ×2 (09:57→21:18)
[2018-06-29] MEDS: LORATADINE 10 MG TABLET PO SCH (09:57)
[2018-06-29] MEDS: levETIRAcetam 500 MG/5 ML INJECTION VIAL IVPB SCH ×2 (09:57→21:10)
[2018-06-29] MEDS: CALCIUM 500MG/VIT-D 200 UNITS COMBO TABLET (FP) PO SCH ×2 (09:58→21:19)
[2018-06-29] MEDS: CHLORHEXIDINE GLUCONATE 0.12% 15ML CUP MM SCH ×2 (09:58→21:19)
[2018-06-29] MEDS: CHOLECALCIFEROL (VITAMIN D3) 400 UNIT TABLET (FP) PO SCH (09:58)
[2018-06-29] MEDS: SENNOSIDES 8.6MG TABLET (FP) PO SCH (09:58)
[2018-06-29] MEDS: PANTOPRAZOLE SODIUM 40 MG VIAL IVPUSH SCH (10:01)
--- NOTE | 2018-06-29 12:17 | PN ---
Progress Note, Physician History of Present Illness: Pt seen and examined at bedside. No great change overnight. - Current Medication List Current Medications: Active Medications Acetaminophen (Tylenol Suppository -) 650 mg ID Q6H PRN PRN Reason: FEVER Last Admin: 06/29/18 06:52 Dose: 650 mg Baclofen (Lioresal -) 10 mg PO TID [facility] Last Admin: 06/29/18 05:58 Dose: Not Given Bisacodyl (Dulcolax Suppository -) 10 mg RC DAILY PRN PRN Reason: CONSTIPATION Last Admin: 06/22/18 23:25 Dose: 10 mg Calcium Carbonate/Cholecalciferol (Os-Hitesh 500+D -) 1 tab PO BID [facility] Last Admin: 06/29/18 09:58 Dose: Not Given Chlorhexidine Gluconate (Peridex -) 30 ml MM BID [facility] Last Admin: 06/29/18 09:58 Dose: Not Given Cholecalciferol (Vitamin D3 -) 400 unit PO DAILY [facility] Last Admin: 06/29/18 09:58 Dose: Not Given Fat Emulsion Intravenous (Intralipid -) 250 ml IV DAILY@2200 [facility] Last Admin: 06/28/18 22:47 Dose: 250 ml Heparin Sodium (Porcine) (Heparin -) 5,000 unit SQ TID [facility] Last Admin: 06/29/18 06:00 Dose: 5,000 unit Meropenem 1 gm/ Dextrose 100 mls @ 200 mls/hr IVPB Q8H-IV [facility] Last Admin: 06/29/18 09:57 Dose: 200 mls/hr Potassium Phosphate 15 mm/Multivitamins/Minerals 10 ml/Sterile Water/ Amino Acids/Dextrose 1,000 mls @ 41.667 mls/hr IVPB DAILY@1600 [facility] Last Admin: 06/28/18 17:40 Dose: 41.667 mls/hr Levetiracetam (Keppra Injection -) 500 mg IVPB BID [facility] Last Admin: 06/29/18 09:57 Dose: 500 mg Loratadine (Claritin -) 10 mg PO DAILY [facility] Last Admin: 06/29/18 09:57 Dose: Not Given Nystatin (Mycostatin Ointment -) 1 applic TP BID [facility] Last Admin: 06/29/18 09:57 Dose: 1 applic Pantoprazole Sodium (Protonix Iv) 20 mg IVPUSH DAILY [facility] Last Admin: 06/29/18 10:01 Dose: 20 mg Scopolamine HBr (Transderm-Scop -) 1 patch TD Q72H [facility] Last Admin: 06/27/18 11:34 Dose: 1 patch Senna (Senna -) 2 tab PO DAILY [facility] Last Admin: 06/29/18 09:58 Dose: Not Given - Objective Vital Signs: Vital Signs Temperature 99.8 F H 06/29/18 09:07 Pulse Rate 101 H 06/29/18 09:07 Respiratory Rate 20 06/29/18 09:07 Blood Pressure 95/55 L 06/29/18 09:07 O2 Sat by Pulse Oximetry (%) 97 06/28/18 21:00 Constitutional: Yes: Calm Eyes: Yes: Conjunctiva Clear HENT: Yes: Atraumatic Cardiovascular: Yes: S1, S2 Respiratory: Yes: On Nasal O2 Gastrointestinal: Yes: Soft Genitourinary: Yes: Incontinence Edema: No Neurological: Yes: Pre-Existing Deficit Labs: CBC, BMP 06/28/18 06:30 06/29/18 06:00 INR, PTT INR 1.14 (0.83-1.09) H 06/10/18 06:00 Problem List - Problems (1) Hypokalemia Code(s): E87.6 - HYPOKALEMIA (2) Aspiration pneumonia Code(s): J69.0 - PNEUMONITIS DUE TO INHALATION OF FOOD AND VOMIT (3) Fever Code(s): R50.9 - FEVER, UNSPECIFIED (4) Pneumonia Code(s): J18.9 - PNEUMONIA, UNSPECIFIED ORGANISM (5) Cerebral palsy Code(s): G80.9 - CEREBRAL PALSY, UNSPECIFIED (6) Constipation Code(s): K59.00 - CONSTIPATION, UNSPECIFIED Assessment/Plan Current Medications Generic Name Dose Route Start Last Admin Trade Name Freq PRN Reason Stop Dose Admin Acetaminophen 650 mg 06/21/18 08:58 06/29/18 06:52 Tylenol Suppository - ID 650 mg Q6H PRN Administration FEVER Baclofen 10 mg 06/10/18 08:00 06/29/18 05:58 Lioresal - PO Not Given TID [facility] Bisacodyl 10 mg 06/10/18 14:38 06/22/18 23:25 Dulcolax Suppository - RC 10 mg DAILY PRN Administration CONSTIPATION Calcium Carbonate/Cholecalciferol 1 tab 06/10/18 22:00 06/29/18 09:58 Os-Hitesh 500+D - PO Not Given BID [facility] Chlorhexidine Gluconate 30 ml 06/10/18 22:00 06/29/18 09:58 Peridex - MM Not Given BID [facility] Cholecalciferol 400 unit 06/11/18 10:00 06/29/18 09:58 Vitamin D3 - PO Not Given DAILY [facility] Fat Emulsion Intravenous 250 ml 06/26/18 22:00 06/28/18 22:47 Intralipid - IV 250 ml DAILY@2200 [facility] Administration Heparin Sodium (Porcine) 5,000 unit 06/27/18 14:30 06/29/18 06:00 Heparin - SQ 5,000 unit TID [facility] Administration Meropenem 1 gm/ Dextrose 100 mls @ 200 mls/hr 06/23/18 18:00 06/29/18 09:57 IVPB 200 mls/hr Q8H-IV [facility] Administration Potassium Phosphate 15 mm/ 1,000 mls @ 41.667 mls/hr 06/28/18 16:00 06/28/18 17:40 Multivitamins/Minerals 10 ml/ IVPB 41.667 mls/hr Sterile Water/ Amino Acids/ DAILY@1600 [facility] Administration Dextrose Levetiracetam 500 mg 06/10/18 22:00 06/29/18 09:57 Keppra Injection - IVPB 500 mg BID [facility] Administration Loratadine 10 mg 06/10/18 14:45 06/29/18 09:57 Claritin - PO Not Given DAILY [facility] Nystatin 1 applic 06/21/18 22:00 06/29/18 09:57 Mycostatin Ointment - TP 1 applic BID [facility] Administration Pantoprazole Sodium 20 mg 06/22/18 10:00 06/29/18 10:01 Protonix Iv IVPUSH 20 mg DAILY [facility] Administration Scopolamine HBr 1 patch 06/24/18 12:00 06/27/18 11:34 Transderm-Scop - TD 1 patch Q72H [facility] Administration Senna 2 tab 06/11/18 10:00 06/29/18 09:58 Senna - PO Not Given DAILY [facility] Impression 1. PNA 2. hypokalemia 3. hypophosphatemia 4. epilepsy 5. cerebral palsy 6. developemental delay 7. pleural effusion 8. malnutrition Plan - cont TPN - orders written - possible peg tomorrow - replace lytes - repeat labs in am - orders written Dr Snow
--- NOTE | 2018-06-29 13:21 | PN ---
Progress Note, Physician History of Present Illness: fevers slightly better no issues starting to sit in chair - Current Medication List Current Medications: Active Medications Acetaminophen (Tylenol Suppository -) 650 mg [place] Q6H PRN PRN Reason: FEVER Last Admin: 06/29/18 06:52 Dose: 650 mg Baclofen (Lioresal -) 10 mg PO TID [facility] Last Admin: 06/29/18 05:58 Dose: Not Given Bisacodyl (Dulcolax Suppository -) 10 mg RC DAILY PRN PRN Reason: CONSTIPATION Last Admin: 06/22/18 23:25 Dose: 10 mg Calcium Carbonate/Cholecalciferol (Os-Hitesh 500+D -) 1 tab PO BID [facility] Last Admin: 06/29/18 09:58 Dose: Not Given Chlorhexidine Gluconate (Peridex -) 30 ml MM BID [facility] Last Admin: 06/29/18 09:58 Dose: Not Given Cholecalciferol (Vitamin D3 -) 400 unit PO DAILY [facility] Last Admin: 06/29/18 09:58 Dose: Not Given Fat Emulsion Intravenous (Intralipid -) 250 ml IV DAILY@2200 [facility] Last Admin: 06/28/18 22:47 Dose: 250 ml Heparin Sodium (Porcine) (Heparin -) 5,000 unit SQ TID [facility] Last Admin: 06/29/18 06:00 Dose: 5,000 unit Meropenem 1 gm/ Dextrose 100 mls @ 200 mls/hr IVPB Q8H-IV [facility] Last Admin: 06/29/18 09:57 Dose: 200 mls/hr Potassium Phosphate 15 mm/Multivitamins/Minerals 10 ml/Sterile Water/ Amino Acids/Dextrose 1,000 mls @ 41.667 mls/hr IVPB DAILY@1600 [facility] Stop: 06/29/18 15:59 Last Admin: 06/28/18 17:40 Dose: 41.667 mls/hr Potassium Phosphate 20 mm/Multivitamins/Minerals 10 ml/Sterile Water/ Amino Acids/Dextrose 1,000 mls @ 41.667 mls/hr IVPB DAILY@1600 [facility] Levetiracetam (Keppra Injection -) 500 mg IVPB BID [facility] Last Admin: 06/29/18 09:57 Dose: 500 mg Loratadine (Claritin -) 10 mg PO DAILY [facility] Last Admin: 06/29/18 09:57 Dose: Not Given Nystatin (Mycostatin Ointment -) 1 applic TP BID [facility] Last Admin: 06/29/18 09:57 Dose: 1 applic Pantoprazole Sodium (Protonix Iv) 20 mg IVPUSH DAILY [facility] Last Admin: 06/29/18 10:01 Dose: 20 mg Scopolamine HBr (Transderm-Scop -) 1 patch TD Q72H [facility] Last Admin: 06/27/18 11:34 Dose: 1 patch Senna (Senna -) 2 tab PO DAILY [facility] Last Admin: 06/29/18 09:58 Dose: Not Given - Objective Vital Signs: Vital Signs Temperature 99.8 F H 06/29/18 09:07 Pulse Rate 101 H 06/29/18 09:07 Respiratory Rate 20 06/29/18 09:07 Blood Pressure 95/55 L 06/29/18 09:07 O2 Sat by Pulse Oximetry (%) 97 06/28/18 21:00 Constitutional: Yes: No Distress, Calm Cardiovascular: Yes: Regular Rate and Rhythm Respiratory: Yes: Regular, On Nasal O2, Poor Air Entry Gastrointestinal: Yes: Normal Bowel Sounds, Soft Musculoskeletal: Yes: WNL Extremities: Yes: Other Neurological: Yes: Alert Labs: CBC, BMP 06/28/18 06:30 06/29/18 06:00 INR, PTT INR 1.14 (0.83-1.09) H 06/10/18 06:00 Assessment/Plan Problem List - Problems (1) Pneumonia Code(s): J18.9 - PNEUMONIA, UNSPECIFIED ORGANISM (2) Aspiration pneumonia Code(s): J69.0 - PNEUMONITIS DUE TO INHALATION OF FOOD AND VOMIT (3) Fever Code(s): R50.9 - FEVER, UNSPECIFIED (4) Altered mental status Code(s): R41.82 - ALTERED MENTAL STATUS, UNSPECIFIED Qualifiers: Altered mental status type: unspecified Qualified Code(s): R41.82 - Altered mental status, unspecified (5) Cerebral palsy Code(s): G80.9 - CEREBRAL PALSY, UNSPECIFIED (6) Constipation Code(s): K59.00 - CONSTIPATION, UNSPECIFIED (7) Functional quadriplegia Code(s): R53.2 - FUNCTIONAL QUADRIPLEGIA (8) Mental retardation Code(s): F79 - UNSPECIFIED INTELLECTUAL DISABILITIES (9) Seizures Code(s): R56.9 - UNSPECIFIED CONVULSIONS patient continues to have repeats fevers inspite being on abx plan continue to monitor hydration continue abx for now will consider giving abx holiday aspiration precautions
--- NOTE | 2018-06-29 13:22 | PN ---
Progress Note, Physician History of Present Illness: PULMONARY AWAKE,STILL CONGESTED. PLEURAL FLUID C/W TRANSUDATE,CULTURES SO FAR - Current Medication List Current Medications: Active Medications Acetaminophen (Tylenol Suppository -) 650 mg [place] Q6H PRN PRN Reason: FEVER Last Admin: 06/29/18 06:52 Dose: 650 mg Baclofen (Lioresal -) 10 mg PO TID [facility] Last Admin: 06/29/18 05:58 Dose: Not Given Bisacodyl (Dulcolax Suppository -) 10 mg RC DAILY PRN PRN Reason: CONSTIPATION Last Admin: 06/22/18 23:25 Dose: 10 mg Calcium Carbonate/Cholecalciferol (Os-Hitesh 500+D -) 1 tab PO BID [facility] Last Admin: 06/29/18 09:58 Dose: Not Given Chlorhexidine Gluconate (Peridex -) 30 ml MM BID [facility] Last Admin: 06/29/18 09:58 Dose: Not Given Cholecalciferol (Vitamin D3 -) 400 unit PO DAILY [facility] Last Admin: 06/29/18 09:58 Dose: Not Given Fat Emulsion Intravenous (Intralipid -) 250 ml IV DAILY@2200 [facility] Last Admin: 06/28/18 22:47 Dose: 250 ml Heparin Sodium (Porcine) (Heparin -) 5,000 unit SQ TID [facility] Last Admin: 06/29/18 06:00 Dose: 5,000 unit Meropenem 1 gm/ Dextrose 100 mls @ 200 mls/hr IVPB Q8H-IV [facility] Last Admin: 06/29/18 09:57 Dose: 200 mls/hr Potassium Phosphate 15 mm/Multivitamins/Minerals 10 ml/Sterile Water/ Amino Acids/Dextrose 1,000 mls @ 41.667 mls/hr IVPB DAILY@1600 [facility] Stop: 06/29/18 15:59 Last Admin: 06/28/18 17:40 Dose: 41.667 mls/hr Potassium Phosphate 20 mm/Multivitamins/Minerals 10 ml/Sterile Water/ Amino Acids/Dextrose 1,000 mls @ 41.667 mls/hr IVPB DAILY@1600 [facility] Levetiracetam (Keppra Injection -) 500 mg IVPB BID [facility] Last Admin: 06/29/18 09:57 Dose: 500 mg Loratadine (Claritin -) 10 mg PO DAILY [facility] Last Admin: 06/29/18 09:57 Dose: Not Given Nystatin (Mycostatin Ointment -) 1 applic TP BID [facility] Last Admin: 06/29/18 09:57 Dose: 1 applic Pantoprazole Sodium (Protonix Iv) 20 mg IVPUSH DAILY [facility] Last Admin: 06/29/18 10:01 Dose: 20 mg Scopolamine HBr (Transderm-Scop -) 1 patch TD Q72H [facility] Last Admin: 06/27/18 11:34 Dose: 1 patch Senna (Senna -) 2 tab PO DAILY [facility] Last Admin: 06/29/18 09:58 Dose: Not Given - Objective Vital Signs: Vital Signs Temperature 99.8 F H 06/29/18 09:07 Pulse Rate 101 H 06/29/18 09:07 Respiratory Rate 20 06/29/18 09:07 Blood Pressure 95/55 L 06/29/18 09:07 O2 Sat by Pulse Oximetry (%) 97 06/28/18 21:00 Constitutional: Yes: Well Nourished, Calm Eyes: Yes: WNL HENT: Yes: WNL Neck: Yes: WNL Cardiovascular: Yes: Regular Rate and Rhythm, S1, S2 Respiratory: Yes: Rhonchi (BILATERAL RHONCHI) Gastrointestinal: Yes: Normal Bowel Sounds, Soft Extremities: Yes: Other (BILATERAL LOWER EXT CONTRACTURES) Labs: CBC, BMP 06/28/18 06:30 06/29/18 06:00 INR, PTT INR 1.14 (0.83-1.09) H 06/10/18 06:00 Assessment/Plan A/P Pneumonia likely Aspiration Sepsis Seizure Disorder Cerebral Palsy Mental Retardation - continue antibiotics as per ID - repeat CXR - aspiration precautions - DVT prophylaxis DR EAST
--- NOTE | 2018-06-29 14:54 | PN ---
Teaching Attending Note Name of Resident: Pedro Morejon ATTENDING PHYSICIAN STATEMENT I saw and evaluated the patient. I reviewed the resident's note and discussed the case with the resident. I agree with the resident's findings and plan as documented. 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 Sepsis due to RUL PNA- Tm 100.9. continues to have intermittent fevers however overall fever curve is trending down. plan for gutierrez-scan today now that access is available. on meropenem 7 days. ID on board. 2. severe malnutriton- as evident by body habitus and BMI. concern for aspiration. plan for PEG tomorrow. on TPN at this time. 3. Abdominal distention-was tolerating feeds. appears stable 4. Acute hypoxic respiratory distress- due to PNA. titrate down supplemental oxygen as tolerated. spO2 >90%. nebs/ chest PT. pulm on board 5. Lactic acidosis, resolved 6. Cerebral palsy 7. Seizure disorder- no seizure like motion noted. cont anti-eleptics. 8. Mental retardation 9. Scoliosis 10. DVT ppx- lovenox
[2018-06-29] MEDS ORDERED: MULTIVIT IVPB SCH (16:00)
[2018-06-29] MEDS ORDERED: [UNRECOGNIZED DRUG - OTHER] IVPB SCH (16:00)
[2018-06-29] MEDS ORDERED: POTASSIUM PHOSPHATE IVPB SCH (16:00)
[2018-06-30] MEDS: ACETAMINOPHEN 325 MG SUPP.RECT PR PRN ×2 (02:01→22:00)
[2018-06-30] MEDS: BACLOFEN 10 MG TABLET (FP) PO SCH ×3 (05:35→22:01)
[2018-06-30 07:52] LABS: ALK PHOS 81 U/L (45-117); ANION GAP 6 MMOL/L (8-16); BILIRUBIN,TOTAL 0.2 mg/dL (0.2-1); BLOOD UREA NITROGEN 13 mg/dL (7-18); CALCIUM 7.8 mg/dL (8.5-10.1); CHLORIDE 99 mmol/L (98-107); CO2 37 mmol/L (21-32); CREATININE 0.2 mg/dL (0.55-1.3); GLUCOSE,RANDOM 98 mg/dL (74-106); POTASSIUM 3.2 mmol/L (3.5-5.1); SGOT/AST 18 U/L (15-37); SGPT/ALT 13 U/L (13-61); SODIUM 142 mmol/L (136-145); TOT PROT 5.2 g/dl (6.4-8.2)
[2018-06-30 09:04] LABS: HEMOGLOBIN 7.5 GM/dL (10.7-15.3); MCH 30.5 pg (25.7-33.7); MCHC 32.6 g/dl (32.0-36.0); MEAN CELL VOLUME 93.4 fl (80-96); PLATELET COUNT 403 K/MM3 (134-434); RBC 2.47 M/mm3 (3.60-5.2); RDW 15.5 % (11.6-15.6); WHITE BLOOD COUNT 8.2 K/mm3 (4.0-10.0)
[2018-06-30] MEDS: levETIRAcetam 500 MG/5 ML INJECTION VIAL IVPB SCH ×2 (10:00→22:01)
[2018-06-30] MEDS: PANTOPRAZOLE SODIUM 40 MG VIAL IVPUSH SCH (10:00)
[2018-06-30] MEDS: NYSTATIN 100000 UNIT/GM TOPICAL OINTMENT 15 GM TUBE TP SCH ×2 (10:01→22:01)
[2018-06-30] MEDS: LORATADINE 10 MG TABLET PO SCH (10:01)
[2018-06-30] MEDS: CHLORHEXIDINE GLUCONATE 0.12% 15ML CUP MM SCH ×2 (10:01→22:01)
[2018-06-30] MEDS: CHOLECALCIFEROL (VITAMIN D3) 400 UNIT TABLET (FP) PO SCH (10:01)
[2018-06-30] MEDS: CALCIUM 500MG/VIT-D 200 UNITS COMBO TABLET (FP) PO SCH ×2 (10:01→22:01)
[2018-06-30] MEDS: SENNOSIDES 8.6MG TABLET (FP) PO SCH (10:01)
--- NOTE | 2018-06-30 11:45 | PN ---
Progress Note (short form) - Note Progress Note: Breathing appears overall much improved on NC O2. Much less audible congestion. Intake & Output 06/27/18 06/28/18 06/29/18 06/30/18 23:59 23:59 23:59 23:59 Intake Total 1012 1800 1940 807 Balance 1012 1800 0 807 Weight 94 lb 94 lb 6 oz 94 lb 9.6 oz 102 lb 6 oz Last Vital Signs Temp Pulse Resp BP Pulse Ox 99.2 F 102 H 20 109/62 96 06/30/18 08:51 06/30/18 08:51 06/30/18 08:51 06/30/18 08:51 06/30/18 09:00 Active Medications Acetaminophen (Tylenol Suppository -) 650 mg UT Q6H PRN PRN Reason: FEVER Last Admin: 06/30/18 02:01 Dose: 650 mg Baclofen (Lioresal -) 10 mg PO TID [facility] Last Admin: 06/30/18 05:35 Dose: Not Given Bisacodyl (Dulcolax Suppository -) 10 mg RC DAILY PRN PRN Reason: CONSTIPATION Last Admin: 06/22/18 23:25 Dose: 10 mg Calcium Carbonate/Cholecalciferol (Os-Hitesh 500+D -) 1 tab PO BID [facility] Last Admin: 06/30/18 10:01 Dose: Not Given Chlorhexidine Gluconate (Peridex -) 30 ml MM BID [facility] Last Admin: 06/30/18 10:01 Dose: Not Given Cholecalciferol (Vitamin D3 -) 400 unit PO DAILY [facility] Last Admin: 06/30/18 10:01 Dose: Not Given Heparin Sodium (Porcine) (Heparin -) 5,000 unit SQ TID [facility] Last Admin: 06/29/18 13:51 Dose: 5,000 unit Fat Emulsion Intravenous (Intralipid -) 250 mls @ 20.833 mls/hr IV DAILY@2200 [facility] Last Admin: 06/29/18 21:08 Dose: 20.833 mls/hr Potassium Phosphate 20 mm/Multivitamins/Minerals 10 ml/Sterile Water/ Amino Acids/Dextrose 1,000 mls @ 41.667 mls/hr IVPB DAILY@1600 [facility] Last Admin: 06/29/18 21:07 Dose: 41.667 mls/hr Levetiracetam (Keppra Injection -) 500 mg IVPB BID [facility] Last Admin: 06/30/18 10:00 Dose: 500 mg Loratadine (Claritin -) 10 mg PO DAILY [facility] Last Admin: 06/30/18 10:01 Dose: Not Given Nystatin (Mycostatin Ointment -) 1 applic TP BID [facility] Last Admin: 06/30/18 10:01 Dose: 1 applic Pantoprazole Sodium (Protonix Iv) 20 mg IVPUSH DAILY [facility] Last Admin: 06/30/18 10:00 Dose: 20 mg Scopolamine HBr (Transderm-Scop -) 1 patch TD Q72H [facility] Last Admin: 06/27/18 11:34 Dose: 1 patch Senna (Senna -) 2 tab PO DAILY [facility] Last Admin: 06/30/18 10:01 Dose: Not Given Constitutional: Yes: No Distress, Less audible rhonchi Eyes: Yes: Conjunctiva Clear, EOM Intact HENT: Yes: Atraumatic Neck: Yes: Supple, Trachea Midline Cardiovascular: Yes: Regular Rate and Rhythm Respiratory: Yes: Cough, Diminished, On Nasal O2, Rhonchi. No: Accessory Muscle Use, Wheezes ...Inspection: Yes: WNL ...Clubbing: No Gastrointestinal: Yes: Normal Bowel Sounds, Soft Renal/: Yes: WNL Musculoskeletal: Yes: Joint Stiffness Extremities: Yes: Shortened Edema: No Peripheral Pulses WNL: Yes Integumentary: Yes: WNL Neurological: Yes: Awake Psychiatric: Yes: Awake Labs: Laboratory Results - last 24 hr 06/30/18 06/30/18 06:00 06:00 WBC 8.2 RBC 2.47 L Hgb 7.5 L Hct 23.0 L MCV 93.4 MCH 30.5 D MCHC 32.6 RDW 15.5 Plt Count 403 MPV 7.0 L Sodium 142 Potassium 3.2 L Chloride 99 Carbon Dioxide 37 H Anion Gap 6 L BUN 13 Creatinine 0.2 L Creat Clearance w eGFR > 60 Random Glucose 98 Calcium 7.8 L Phosphorus 2.0 L Magnesium 2.0 Total Bilirubin 0.2 AST 18 ALT 13 Alkaline Phosphatase 81 Total Protein 5.2 L Albumin 2.0 L Problem List - Problems (1) Pneumonia Code(s): J18.9 - PNEUMONIA, UNSPECIFIED ORGANISM (2) Aspiration pneumonia Code(s): J69.0 - PNEUMONITIS DUE TO INHALATION OF FOOD AND VOMIT (3) Fever Code(s): R50.9 - FEVER, UNSPECIFIED (4) Altered mental status Code(s): R41.82 - ALTERED MENTAL STATUS, UNSPECIFIED Qualifiers: Altered mental status type: unspecified Qualified Code(s): R41.82 - Altered mental status, unspecified (5) Cerebral palsy Code(s): G80.9 - CEREBRAL PALSY, UNSPECIFIED (6) Constipation Code(s): K59.00 - CONSTIPATION, UNSPECIFIED (7) Functional quadriplegia Code(s): R53.2 - FUNCTIONAL QUADRIPLEGIA (8) Mental retardation Code(s): F79 - UNSPECIFIED INTELLECTUAL DISABILITIES (9) Seizures Code(s): R56.9 - UNSPECIFIED CONVULSIONS Assessment/Plan Currently off ABX Aspiration precautions O2 as needed VTE prophylaxis BD TX Chest PT OOB to her own wheelchair May need PEG Consider reevaluate swallow to take enteral nutrition Dr Alex Problem List - Problems (1) Pneumonia Code(s): J18.9 - PNEUMONIA, UNSPECIFIED ORGANISM (2) Aspiration pneumonia Code(s): J69.0 - PNEUMONITIS DUE TO INHALATION OF FOOD AND VOMIT (3) Fever Code(s): R50.9 - FEVER, UNSPECIFIED (4) Altered mental status Code(s): R41.82 - ALTERED MENTAL STATUS, UNSPECIFIED Qualifiers: Altered mental status type: unspecified Qualified Code(s): R41.82 - Altered mental status, unspecified (5) Cerebral palsy Code(s): G80.9 - CEREBRAL PALSY, UNSPECIFIED (6) Constipation Code(s): K59.00 - CONSTIPATION, UNSPECIFIED (7) Functional quadriplegia Code(s): R53.2 - FUNCTIONAL QUADRIPLEGIA (8) Mental retardation Code(s): F79 - UNSPECIFIED INTELLECTUAL DISABILITIES (9) Seizures Code(s): R56.9 - UNSPECIFIED CONVULSIONS
[2018-06-30] MEDS: SCOPOLAMINE HYDROBROMIDE 1 PATCH PATCH.TD72 TD SCH (12:31)
--- NOTE | 2018-06-30 13:46 | PN ---
Progress Note, SURGICAL ASSISTANT CERTIFIED - Note Progress Note: Selected Entries 06/30/18 06/30/18 06/30/18 02:00 06:00 08:51 Lunch Temperature 100.3 F H 100.1 F H 99.2 F 06/30/18 10:10 Lunch NPO Temperature Laboratory Tests 06/30/18 06:00 WBC 8.2 Pt's mother present. She would like to defer PEG if pt can swallow. Call placed to Radiology for possible MBS today. Pt OOB in chair. Not grossly congested. Looks stronger.
--- NOTE | 2018-06-30 14:11 | PN ---
Physical Exam: SUBJECTIVE: Patient seen and examined this AM. She is out of bed to her chair. Discussed with family the goals and possible peg need. Expressed that they want to follow up barium swallow before final PEG decision. OBJECTIVE: Vital Signs Period Temp Pulse Resp BP Sys/[place] Pulse Ox Last 24 Hr 98.5 F-100.3 F 101-112 20-20 104-131/48-65 96-97 GENERAL: Awake,nonverbal, in no acute distress HEAD: Microcephalic, atraumatic. EYES: PERRL, no scleral icterus EARS, NOSE, THROAT: oropharynx with mucus secretions. Moist mucous membranes. LUNGS: Rhonchi diffusely HEART: Regular rate and rhythm, normal S1 and S2 without murmur ABDOMEN: Soft, nontender to palpation, normoactive bowel sounds MUSCULOSKELETAL: Severe levoscoliosis EXTREMITIES: Contracted, trace dependent edema in b/l UE SKIN: Minimal erythematous rash on left groin, mostly resolved Laboratory Results - last 24 hr 06/30/18 06/30/18 06:00 06:00 WBC 8.2 RBC 2.47 L Hgb 7.5 L Hct 23.0 L MCV 93.4 MCH 30.5 D MCHC 32.6 RDW 15.5 Plt Count 403 MPV 7.0 L Sodium 142 Potassium 3.2 L Chloride 99 Carbon Dioxide 37 H Anion Gap 6 L BUN 13 Creatinine 0.2 L Creat Clearance w eGFR > 60 Random Glucose 98 Calcium 7.8 L Phosphorus 2.0 L Magnesium 2.0 Total Bilirubin 0.2 AST 18 ALT 13 Alkaline Phosphatase 81 Total Protein 5.2 L Albumin 2.0 L Active Medications Generic Name Dose Route Start Last Admin Trade Name Zhouq PRN Reason Stop Dose Admin Acetaminophen 650 mg 06/21/18 08:58 06/30/18 02:01 Tylenol Suppository - [place] 650 mg Q6H PRN Administration FEVER Baclofen 10 mg 06/10/18 08:00 06/30/18 05:35 Lioresal - PO Not Given TID [facility] Bisacodyl 10 mg 06/10/18 14:38 06/22/18 23:25 Dulcolax Suppository - RC 10 mg DAILY PRN Administration CONSTIPATION Calcium Carbonate/Cholecalciferol 1 tab 06/10/18 22:00 06/30/18 10:01 Os-Hitesh 500+D - PO Not Given BID [facility] Chlorhexidine Gluconate 30 ml 06/10/18 22:00 06/30/18 10:01 Peridex - MM Not Given BID [facility] Cholecalciferol 400 unit 06/11/18 10:00 06/30/18 10:01 Vitamin D3 - PO Not Given DAILY [facility] Heparin Sodium (Porcine) 5,000 unit 06/27/18 14:30 06/29/18 13:51 Heparin - SQ 5,000 unit TID [facility] Administration Fat Emulsion Intravenous 250 mls @ 20.833 mls/hr 06/28/18 22:00 06/29/18 21: 08 Intralipid - IV 20.833 mls/hr DAILY@2200 [facility] Administration Potassium Phosphate 20 mm/ 1,000 mls @ 41.667 mls/hr 06/29/18 16:00 06/29/18 21:07 Multivitamins/Minerals 10 ml/ IVPB 41.667 mls/hr Sterile Water/ Amino Acids/ DAILY@1600 [facility] Administration Dextrose Levetiracetam 500 mg 06/10/18 22:00 06/30/18 10:00 Keppra Injection - IVPB 500 mg BID [facility] Administration Loratadine 10 mg 06/10/18 14:45 06/30/18 10:01 Claritin - PO Not Given DAILY [facility] Nystatin 1 applic 06/21/18 22:00 06/30/18 10:01 Mycostatin Ointment - TP 1 applic BID [facility] Administration Pantoprazole Sodium 20 mg 06/22/18 10:00 06/30/18 10:00 Protonix Iv IVPUSH 20 mg DAILY [facility] Administration Scopolamine HBr 1 patch 06/24/18 12:00 06/30/18 12:31 Transderm-Scop - TD 1 patch Q72H [facility] Administration Senna 2 tab 06/11/18 10:00 06/30/18 10:01 Senna - PO Not Given DAILY [facility] ASSESSMENT/PLAN: 52 yo Female with PMH Cerebral Palsy with spastic quadriplegia, Mental Retardation, Epilepsy, Scoliosis presented from [facility] for vomiting followed by high fevers and cough. Sepsis secondary to Aspiration pneumonia vs pneumonitis -Febrile 103.5 on admission, Tachycardic, tachypnic -Fevers improved from admission but continuing, Afebrile Overnight -Chest CT: RUL congestion suspicious for pneumonia vs pneumonitis -ID consult appreciated Off antibiotics -Ventolin NEBs QID -Pulmonology consult appreciated -Modified barium swallow noted for possible silent aspiration, repeat today pending -Family states that pt does better when sitting up in her wheelchair than when lying in bed -wean off O2 -Scopolamine Patch -Repeat Chest CT with increasing infiltrate, IR Thoracentesis, initial fluid analysis negative -CT Chest/Abdomen/Pelvis with contrast ordered Severe Malnutrition -Pt has not tolerated PO or tube feeds for prolonged time -BMI 18.4 -GI consulted for evaluation of possible PEG insertion, awaiting recommendation -Extensive conversation with family about possible need for PEG as well as temporary need for Central line and TPN -Currently receiving TPN via central line as per nephrology -Family agreeable for PEG insertion initially though refused yesterday when called for consent. -Modified Barium Swallow pending, will reevaluate need for PEG this afternoon and discuss with family -Discussed with IR about possible PEG insertion, NG tube tonight for contrast prep, KUB for 7AM Epilepsy -Keppra 500 mg PO BID IV until tolerates PO -Ativan 2gm IV TID Spasticity -Pt on Baclofen 10 mg TID, holding as not tolerating NGT feeds -Ativan 2 gm IV TID DVT Prophylaxis -Heparin 5000 units SQ TID, hold tonight for possible PEG placement, pending MBS results FEN -Fluids: none -Electrolytes: Low Mag, Low Phos, replete, BMP in AM -Nutrition: NPO, TPN as per nephrology, pt possibly for PEG Tube Placement in AM Disposition Med/Surg Visit type - Emergency Visit Emergency Visit: Yes ED Registration Date: 06/09/18 Care time: The patient presented to the Emergency Department on the above date and was hospitalized for further evaluation of their emergent condition. - New Patient This patient is new to me today: No - Critical Care Critical Care patient: No
--- NOTE | 2018-06-30 15:25 | PN ---
Progress Note, Physician History of Present Illness: improving off of abx still with some fevers but frequency less - Current Medication List Current Medications: Active Medications Acetaminophen (Tylenol Suppository -) 650 mg OR Q6H PRN PRN Reason: FEVER Last Admin: 06/30/18 02:01 Dose: 650 mg Baclofen (Lioresal -) 10 mg PO TID [facility] Last Admin: 06/30/18 14:36 Dose: Not Given Bisacodyl (Dulcolax Suppository -) 10 mg RC DAILY PRN PRN Reason: CONSTIPATION Last Admin: 06/22/18 23:25 Dose: 10 mg Calcium Carbonate/Cholecalciferol (Os-Hitesh 500+D -) 1 tab PO BID [facility] Last Admin: 06/30/18 10:01 Dose: Not Given Chlorhexidine Gluconate (Peridex -) 30 ml MM BID [facility] Last Admin: 06/30/18 10:01 Dose: Not Given Cholecalciferol (Vitamin D3 -) 400 unit PO DAILY [facility] Last Admin: 06/30/18 10:01 Dose: Not Given Heparin Sodium (Porcine) (Heparin -) 5,000 unit SQ TID [facility] Last Admin: 06/29/18 13:51 Dose: 5,000 unit Fat Emulsion Intravenous (Intralipid -) 250 mls @ 20.833 mls/hr IV DAILY@2200 [facility] Last Admin: 06/29/18 21:08 Dose: 20.833 mls/hr Potassium Phosphate 20 mm/Multivitamins/Minerals 10 ml/Sterile Water/ Amino Acids/Dextrose 1,000 mls @ 41.667 mls/hr IVPB DAILY@1600 [facility] Last Admin: 06/29/18 21:07 Dose: 41.667 mls/hr Levetiracetam (Keppra Injection -) 500 mg IVPB BID [facility] Last Admin: 06/30/18 10:00 Dose: 500 mg Loratadine (Claritin -) 10 mg PO DAILY [facility] Last Admin: 06/30/18 10:01 Dose: Not Given Nystatin (Mycostatin Ointment -) 1 applic TP BID [facility] Last Admin: 06/30/18 10:01 Dose: 1 applic Pantoprazole Sodium (Protonix Iv) 20 mg IVPUSH DAILY [facility] Last Admin: 06/30/18 10:00 Dose: 20 mg Scopolamine HBr (Transderm-Scop -) 1 patch TD Q72H [facility] Last Admin: 06/30/18 12:31 Dose: 1 patch Senna (Senna -) 2 tab PO DAILY [facility] Last Admin: 06/30/18 10:01 Dose: Not Given - Objective Vital Signs: Vital Signs Temperature 100.1 F H 06/30/18 14:49 Pulse Rate 103 H 06/30/18 14:49 Respiratory Rate 19 06/30/18 14:49 Blood Pressure 121/81 06/30/18 14:49 O2 Sat by Pulse Oximetry (%) 96 06/30/18 09:00 Constitutional: Yes: No Distress, Calm Cardiovascular: Yes: Regular Rate and Rhythm Respiratory: Yes: Regular, Other Gastrointestinal: Yes: Normal Bowel Sounds, Soft Musculoskeletal: Yes: WNL Extremities: Yes: Other Neurological: Yes: Alert Psychiatric: Yes: Alert Labs: CBC, BMP 06/30/18 06:00 06/30/18 06:00 INR, PTT INR 1.14 (0.83-1.09) H 06/10/18 06:00 Assessment/Plan Problem List - Problems (1) Pneumonia Code(s): J18.9 - PNEUMONIA, UNSPECIFIED ORGANISM (2) Aspiration pneumonia Code(s): J69.0 - PNEUMONITIS DUE TO INHALATION OF FOOD AND VOMIT (3) Fever Code(s): R50.9 - FEVER, UNSPECIFIED (4) Altered mental status Code(s): R41.82 - ALTERED MENTAL STATUS, UNSPECIFIED Qualifiers: Altered mental status type: unspecified Qualified Code(s): R41.82 - Altered mental status, unspecified (5) Cerebral palsy Code(s): G80.9 - CEREBRAL PALSY, UNSPECIFIED (6) Constipation Code(s): K59.00 - CONSTIPATION, UNSPECIFIED (7) Functional quadriplegia Code(s): R53.2 - FUNCTIONAL QUADRIPLEGIA (8) Mental retardation Code(s): F79 - UNSPECIFIED INTELLECTUAL DISABILITIES (9) Seizures Code(s): R56.9 - UNSPECIFIED CONVULSIONS plan continue to monitor hydration off of abx monitor fevers aspiration precautions
[2018-06-30] MEDS ORDERED: POTASSIUM CHLORIDE TABS 20 MEQ TABLET.ER (FP) PO ONE (17:09)
[2018-06-30] MEDS ORDERED: NAPH,MB-DB/K PH,MBDB POWDER PACKET PO ONE (17:09)
--- NOTE | 2018-06-30 17:12 | PN ---
Progress Note, Physician History of Present Illness: Pt seen and examined at bedside. She will be started on a modified diet. - Current Medication List Current Medications: Active Medications Acetaminophen (Tylenol Suppository -) 650 mg [place] Q6H PRN PRN Reason: FEVER Last Admin: 06/30/18 02:01 Dose: 650 mg Baclofen (Lioresal -) 10 mg PO TID [facility] Last Admin: 06/30/18 14:36 Dose: Not Given Bisacodyl (Dulcolax Suppository -) 10 mg RC DAILY PRN PRN Reason: CONSTIPATION Last Admin: 06/22/18 23:25 Dose: 10 mg Calcium Carbonate/Cholecalciferol (Os-Hitesh 500+D -) 1 tab PO BID [facility] Last Admin: 06/30/18 10:01 Dose: Not Given Chlorhexidine Gluconate (Peridex -) 30 ml MM BID [facility] Last Admin: 06/30/18 10:01 Dose: Not Given Cholecalciferol (Vitamin D3 -) 400 unit PO DAILY [facility] Last Admin: 06/30/18 10:01 Dose: Not Given Heparin Sodium (Porcine) (Heparin -) 5,000 unit SQ TID [facility] Last Admin: 06/29/18 13:51 Dose: 5,000 unit Fat Emulsion Intravenous (Intralipid -) 250 mls @ 20.833 mls/hr IV DAILY@2200 [facility] Last Admin: 06/29/18 21:08 Dose: 20.833 mls/hr Potassium Phosphate 20 mm/Multivitamins/Minerals 10 ml/Sterile Water/ Amino Acids/Dextrose 1,000 mls @ 41.667 mls/hr IVPB DAILY@1600 [facility] Last Admin: 06/29/18 21:07 Dose: 41.667 mls/hr Levetiracetam (Keppra Injection -) 500 mg IVPB BID [facility] Last Admin: 06/30/18 10:00 Dose: 500 mg Loratadine (Claritin -) 10 mg PO DAILY [facility] Last Admin: 06/30/18 10:01 Dose: Not Given Nystatin (Mycostatin Ointment -) 1 applic TP BID [facility] Last Admin: 06/30/18 10:01 Dose: 1 applic Pantoprazole Sodium (Protonix Iv) 20 mg IVPUSH DAILY [facility] Last Admin: 06/30/18 10:00 Dose: 20 mg Potassium Chloride (K-Dur -) 40 meq PO ONCE ONE Stop: 06/30/18 17:10 Scopolamine HBr (Transderm-Scop -) 1 patch TD Q72H [facility] Last Admin: 06/30/18 12:31 Dose: 1 patch Senna (Senna -) 2 tab PO DAILY [facility] Last Admin: 06/30/18 10:01 Dose: Not Given - Objective Vital Signs: Vital Signs Temperature 100.1 F H 06/30/18 14:49 Pulse Rate 103 H 06/30/18 14:49 Respiratory Rate 19 06/30/18 14:49 Blood Pressure 121/81 06/30/18 14:49 O2 Sat by Pulse Oximetry (%) 96 06/30/18 09:00 Constitutional: Yes: Calm Cardiovascular: Yes: S1, S2 Respiratory: Yes: On Nasal O2 Gastrointestinal: Yes: Soft Genitourinary: Yes: Incontinence Musculoskeletal: Yes: Other (contracted) Edema: No Neurological: Yes: Pre-Existing Deficit Labs: CBC, BMP 06/30/18 06:00 06/30/18 06:00 INR, PTT INR 1.14 (0.83-1.09) H 06/10/18 06:00 Problem List - Problems (1) Hypokalemia Code(s): E87.6 - HYPOKALEMIA (2) Aspiration pneumonia Code(s): J69.0 - PNEUMONITIS DUE TO INHALATION OF FOOD AND VOMIT (3) Fever Code(s): R50.9 - FEVER, UNSPECIFIED (4) Pneumonia Code(s): J18.9 - PNEUMONIA, UNSPECIFIED ORGANISM (5) Cerebral palsy Code(s): G80.9 - CEREBRAL PALSY, UNSPECIFIED (6) Constipation Code(s): K59.00 - CONSTIPATION, UNSPECIFIED Assessment/Plan Current Medications Generic Name Dose Route Start Last Admin Trade Name Freq PRN Reason Stop Dose Admin Acetaminophen 650 mg 06/21/18 08:58 06/30/18 02:01 Tylenol Suppository - [place] 650 mg Q6H PRN Administration FEVER Baclofen 10 mg 06/10/18 08:00 06/30/18 14:36 Lioresal - PO Not Given TID [facility] Bisacodyl 10 mg 06/10/18 14:38 06/22/18 23:25 Dulcolax Suppository - RC 10 mg DAILY PRN Administration CONSTIPATION Calcium Carbonate/Cholecalciferol 1 tab 06/10/18 22:00 06/30/18 10:01 Os-Hitesh 500+D - PO Not Given BID [facility] Chlorhexidine Gluconate 30 ml 06/10/18 22:00 06/30/18 10:01 Peridex - MM Not Given BID [facility] Cholecalciferol 400 unit 06/11/18 10:00 06/30/18 10:01 Vitamin D3 - PO Not Given DAILY [facility] Heparin Sodium (Porcine) 5,000 unit 06/27/18 14:30 06/29/18 13:51 Heparin - SQ 5,000 unit TID [facility] Administration Fat Emulsion Intravenous 250 mls @ 20.833 mls/hr 06/28/18 22:00 06/29/18 21: 08 Intralipid - IV 20.833 mls/hr DAILY@2200 [facility] Administration Potassium Phosphate 20 mm/ 1,000 mls @ 41.667 mls/hr 06/29/18 16:00 06/29/18 21:07 Multivitamins/Minerals 10 ml/ IVPB 41.667 mls/hr Sterile Water/ Amino Acids/ DAILY@1600 [facility] Administration Dextrose Levetiracetam 500 mg 06/10/18 22:00 06/30/18 10:00 Keppra Injection - IVPB 500 mg BID [facility] Administration Loratadine 10 mg 06/10/18 14:45 06/30/18 10:01 Claritin - PO Not Given DAILY [facility] Nystatin 1 applic 06/21/18 22:00 06/30/18 10:01 Mycostatin Ointment - TP 1 applic BID [facility] Administration Pantoprazole Sodium 20 mg 06/22/18 10:00 06/30/18 10:00 Protonix Iv IVPUSH 20 mg DAILY [facility] Administration Potassium Chloride 40 meq 06/30/18 17:09 K-Dur - PO 06/30/18 17:10 ONCE ONE Potassium Phos/Sodium Phos 1 packet 06/30/18 17:09 Phos-Nak Packet - PO 06/30/18 17:10 ONCE ONE Scopolamine HBr 1 patch 06/24/18 12:00 06/30/18 12:31 Transderm-Scop - TD 1 patch Q72H [facility] Administration Senna 2 tab 06/11/18 10:00 10/18/18 10:01 Senna - PO Not Given DAILY [facility] Impression 1. PNA 2. hypokalemia 3. hypophosphatemia 4. epilepsy 5. cerebral palsy 6. developemental delay 7. pleural effusion 8. malnutrition Plan - pt started on diet - can d/c tpn after this bag - replace lytes - repeat labs in am - will need one to one feeds Dr Snow
--- NOTE | 2018-06-30 18:45 | PN ---
Teaching Attending Note Name of Resident: Pedro Morejon ATTENDING PHYSICIAN STATEMENT I saw and evaluated the patient. I reviewed the resident's note and discussed the case with the resident. I agree with the resident's findings and plan as documented. 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 Sepsis due to RUL PNA- some low grade fevers. awaiting CT scan. on meropenem 8 days have been on abx 21 days total. ID on board. 2. severe malnutriton- as evident by body habitus and BMI. concern for aspiration. was planned for PEG today however pt decided last night that they do not want a PEG at this time. interested in repeat MBS first. will call swallow eval. on TPN at this time. 3. Abdominal distention-was tolerating feeds. appears stable 4. Acute hypoxic respiratory distress- due to PNA. titrate down supplemental oxygen as tolerated. spO2 >90%. nebs/ chest PT. pulm on board 5. Lactic acidosis, resolved 6. Cerebral palsy 7. Seizure disorder- no seizure like motion noted. cont anti-eleptics. 8. Mental retardation 9. Scoliosis 10. DVT ppx- lovenox
[2018-06-30] MEDS: HEPARIN NA (PORCINE) 5,000 UNITS/ML 1ML VIAL SQ SCH (22:01)
[2018-07-01] MEDS: BACLOFEN 10 MG TABLET (FP) PO SCH ×3 (06:23→21:47)
[2018-07-01] MEDS: HEPARIN NA (PORCINE) 5,000 UNITS/ML 1ML VIAL SQ SCH ×3 (06:23→21:47)
[2018-07-01] MEDS: ACETAMINOPHEN 325 MG SUPP.RECT PR PRN ×2 (06:50→22:06)
--- NOTE | 2018-07-01 08:47 | PN ---
Physical Exam: SUBJECTIVE: Patient seen and examined this AM. She is smiling and looks good this morning. Overnight fever noted. OBJECTIVE: Vital Signs Period Temp Pulse Resp BP Sys/Ascencio Pulse Ox Last 24 Hr 99.2 F-101 F 80-110 19-20 109-126/62-81 96-96 GENERAL: Awake,nonverbal, in no acute distress HEAD: Microcephalic, atraumatic. EYES: PERRL, no scleral icterus EARS, NOSE, THROAT: oropharynx with mucus secretions. Moist mucous membranes. LUNGS: Rhonchi, poor inspiratory effort HEART: Regular rate and rhythm, normal S1 and S2 without murmur ABDOMEN: Soft, nondistended, normoactive bowel sounds MUSCULOSKELETAL: Severe levoscoliosis EXTREMITIES: Contracted, trace dependent edema in b/l UE Laboratory Results - last 24 hr 06/30/18 06:00 WBC 8.2 RBC 2.47 L Hgb 7.5 L Hct 23.0 L MCV 93.4 MCH 30.5 D MCHC 32.6 RDW 15.5 Plt Count 403 MPV 7.0 L Active Medications Generic Name Dose Route Start Last Admin Trade Name Freq PRN Reason Stop Dose Admin Acetaminophen 650 mg 06/21/18 08:58 07/01/18 06:50 Tylenol Suppository - IN 650 mg Q6H PRN Administration FEVER Baclofen 10 mg 06/10/18 08:00 07/01/18 06:23 Lioresal - PO 10 mg TID [facility] Administration Bisacodyl 10 mg 06/10/18 14:38 06/22/18 23:25 Dulcolax Suppository - RC 10 mg DAILY PRN Administration CONSTIPATION Calcium Carbonate/Cholecalciferol 1 tab 06/10/18 22:00 06/30/18 22:01 Os-Hitesh 500+D - PO 1 tab BID [facility] Administration Chlorhexidine Gluconate 30 ml 06/10/18 22:00 06/30/18 22:01 Peridex - MM Not Given BID [facility] Cholecalciferol 400 unit 06/11/18 10:00 06/30/18 10:01 Vitamin D3 - PO Not Given DAILY [facility] Heparin Sodium (Porcine) 5,000 unit 06/27/18 14:30 07/01/18 06:23 Heparin - SQ 5,000 unit TID [facility] Administration Levetiracetam 500 mg 06/10/18 22:00 10/18/18 22:01 Keppra Injection - IVPB 500 mg BID [facility] Administration Loratadine 10 mg 06/10/18 14:45 06/30/18 10:01 Claritin - PO Not Given DAILY [facility] Nystatin 1 applic 06/21/18 22:00 06/30/18 22:01 Mycostatin Ointment - TP 1 applic BID [facility] Administration Pantoprazole Sodium 20 mg 06/22/18 10:00 06/30/18 10:00 Protonix Iv IVPUSH 20 mg DAILY [facility] Administration Scopolamine HBr 1 patch 06/24/18 12:00 06/30/18 12:31 Transderm-Scop - TD 1 patch Q72H [facility] Administration Senna 2 tab 06/11/18 10:00 06/30/18 10:01 Senna - PO Not Given DAILY [facility] ASSESSMENT/PLAN: 52 yo Female with PMH Cerebral Palsy with spastic quadriplegia, Mental Retardation, Epilepsy, Scoliosis presented from [facility] for vomiting followed by high fevers and cough. Sepsis secondary to Aspiration pneumonia vs pneumonitis -Febrile 103.5 on admission, Tachycardic, tachypnic -Fevers improved from admission but continuing -Chest CT: RUL congestion suspicious for pneumonia vs pneumonitis -ID consult appreciated Off antibiotics -Ventolin NEBs QID -Pulmonology consult appreciated -wean off O2 -Scopolamine Patch -Repeat Chest CT with increasing infiltrate, IR Thoracentesis, initial fluid analysis negative -CT Chest/Abdomen/Pelvis with contrast ordered, pt cannot receive contrast via CV line, brown port nonfunctioning -Repeat C/S, CXR, consider CT without contrast if continued fevers -1/2 NS + 10 mEq K @ 50 cc/hr Severe Malnutrition -BMI 18.4 -Extensive conversation with family about possible need for PEG as well as temporary need for Central line and TPN -Pt with CV line and was receiving TPN -Modified Barium Swallow 06/30 noted -Restart dysphagia puree with honey thickened liquids only when sitting up in her wheelchair Epilepsy -Keppra 500 mg PO BID IV, will continue IV for now and convert to PO as patient verified tolerating PO intake -Ativan 2gm IV TID Spasticity -Pt on Baclofen 10 mg TID -Ativan 2 gm IV TID DVT Prophylaxis -Heparin 5000 units SQ TID FEN -Fluids: 1/2 NS + 10 mEq K @ 50 cc/hr -Electrolytes: Low Mag, Low Phos, replete, BMP in AM -Nutrition: Dysphagia Puree, honey thickened liquids, only when sitting up in her wheelchair Disposition Med/Surg Visit type - Emergency Visit Emergency Visit: Yes ED Registration Date: 06/09/18 Care time: The patient presented to the Emergency Department on the above date and was hospitalized for further evaluation of their emergent condition. - New Patient This patient is new to me today: No - Critical Care Critical Care patient: No
[2018-07-01 09:20] LABS: ALBUMIN 2.4 g/dl (3.4-5.0); ALK PHOS 102 U/L (45-117); ANION GAP 10 MMOL/L (8-16); BILIRUBIN,TOTAL 0.4 mg/dL (0.2-1); BLOOD UREA NITROGEN 14 mg/dL (7-18); CALCIUM 8.4 mg/dL (8.5-10.1); CHLORIDE 104 mmol/L (98-107); CO2 31 mmol/L (21-32); CREATININE 0.3 mg/dL (0.55-1.3); GLUCOSE,RANDOM 80 mg/dL (74-106); MAGNESIUM 1.9 mg/dL (1.8-2.4); PHOSPHOROUS 2.1 mg/dL (2.5-4.9); POTASSIUM 3.5 mmol/L (3.5-5.1); SGOT/AST 20 U/L (15-37); SGPT/ALT 14 U/L (13-61); SODIUM 144 mmol/L (136-145)
[2018-07-01] MEDS: SENNOSIDES 8.6MG TABLET (FP) PO SCH (10:11)
[2018-07-01] MEDS: LORATADINE 10 MG TABLET PO SCH (10:11)
[2018-07-01] MEDS: CALCIUM 500MG/VIT-D 200 UNITS COMBO TABLET (FP) PO SCH ×2 (10:11→21:47)
[2018-07-01] MEDS: levETIRAcetam 500 MG/5 ML INJECTION VIAL IVPB SCH ×2 (10:11→21:47)
[2018-07-01] MEDS: CHOLECALCIFEROL (VITAMIN D3) 400 UNIT TABLET (FP) PO SCH (10:11)
[2018-07-01] MEDS: PANTOPRAZOLE SODIUM 40 MG VIAL IVPUSH SCH (10:12)
[2018-07-01] MEDS: CHLORHEXIDINE GLUCONATE 0.12% 15ML CUP MM SCH ×2 (10:12→21:48)
[2018-07-01] MEDS: NYSTATIN 100000 UNIT/GM TOPICAL OINTMENT 15 GM TUBE TP SCH ×2 (10:13→21:47)
[2018-07-01] MEDS ORDERED: POTASSIUM CHLORIDE 10 MEQ in SODIUM CHLORIDE 0.45% 1,000 ML IVPB SCH (10:45)
[2018-07-01 11:16] LABS: BASO % 1.7 % (0-2.0); HEMATOCRIT 27.6 % (32.4-45.2); HEMOGLOBIN 8.8 GM/dL (10.7-15.3); LYMPH % 17.5 % (8-40); MCH 30.2 pg (25.7-33.7); MCHC 31.8 g/dl (32.0-36.0); MEAN PLT VOLUME 7.2 fl (7.5-11.1); MONO % 5.8 % (3.8-10.2); PLATELET COUNT 384 K/MM3 (134-434); RDW 15.8 % (11.6-15.6); WHITE BLOOD COUNT 7.9 K/mm3 (4.0-10.0)
[2018-07-01 11:23] LABS: RBC 2.91 M/mm3 (3.60-5.2)
[2018-07-01] MEDS ORDERED: POTASSIUM PHOSPHATE 30 MM in DEXTROSE 5%-WATER - 500 ML IVPB ONE (11:53)
--- NOTE | 2018-07-01 12:50 | PN ---
Progress Note, Physician History of Present Illness: continue to spike fever looks much better congestion less sitting in chair - Current Medication List Current Medications: Active Medications Acetaminophen (Tylenol Suppository -) 650 mg [place] Q6H PRN PRN Reason: FEVER Last Admin: 07/01/18 06:50 Dose: 650 mg Baclofen (Lioresal -) 10 mg PO TID [facility] Last Admin: 07/01/18 06:23 Dose: 10 mg Bisacodyl (Dulcolax Suppository -) 10 mg RC DAILY PRN PRN Reason: CONSTIPATION Last Admin: 06/22/18 23:25 Dose: 10 mg Calcium Carbonate/Cholecalciferol (Os-Hitesh 500+D -) 1 tab PO BID [facility] Last Admin: 07/01/18 10:11 Dose: 1 tab Chlorhexidine Gluconate (Peridex -) 30 ml MM BID [facility] Last Admin: 07/01/18 10:12 Dose: Not Given Cholecalciferol (Vitamin D3 -) 400 unit PO DAILY [facility] Last Admin: 07/01/18 10:11 Dose: 400 unit Heparin Sodium (Porcine) (Heparin -) 5,000 unit SQ TID [facility] Last Admin: 07/01/18 06:23 Dose: 5,000 unit Potassium Chloride 10 meq/ (Sodium Chloride) 1,005 mls @ 50 mls/hr IVPB Q20H [facility] Stop: 07/02/18 06:44 Potassium Phosphate 30 mm/ (Dextrose) 510 mls @ 63.75 mls/hr IVPB ONCE ONE Stop: 07/01/18 19:52 Levetiracetam (Keppra Injection -) 500 mg IVPB BID [facility] Last Admin: 07/01/18 10:11 Dose: 500 mg Loratadine (Claritin -) 10 mg PO DAILY [facility] Last Admin: 07/01/18 10:11 Dose: 10 mg Nystatin (Mycostatin Ointment -) 1 applic TP BID [facility] Last Admin: 07/01/18 10:13 Dose: 1 applic Pantoprazole Sodium (Protonix Iv) 20 mg IVPUSH DAILY [facility] Last Admin: 07/01/18 10:12 Dose: 20 mg Scopolamine HBr (Transderm-Scop -) 1 patch TD Q72H [facility] Last Admin: 06/30/18 12:31 Dose: 1 patch Senna (Senna -) 2 tab PO DAILY [facility] Last Admin: 07/01/18 10:11 Dose: 2 tab - Objective Vital Signs: Vital Signs Temperature 100.9 F H 07/01/18 06:00 Pulse Rate 110 H 07/01/18 06:00 Respiratory Rate 20 06/30/18 22:50 Blood Pressure 123/75 07/01/18 06:00 O2 Sat by Pulse Oximetry (%) 96 06/30/18 21:00 Constitutional: Yes: No Distress, Calm Cardiovascular: Yes: Regular Rate and Rhythm Respiratory: Yes: Poor Air Entry, Rhonchi Gastrointestinal: Yes: Normal Bowel Sounds, Soft Musculoskeletal: Yes: WNL Extremities: Yes: Other Neurological: Yes: Alert, Other Psychiatric: Yes: Other Labs: CBC, BMP 07/01/18 06:50 07/01/18 06:50 INR, PTT INR 1.14 (0.83-1.09) H 06/10/18 06:00 Assessment/Plan Problem List - Problems (1) Pneumonia Code(s): J18.9 - PNEUMONIA, UNSPECIFIED ORGANISM (2) Aspiration pneumonia Code(s): J69.0 - PNEUMONITIS DUE TO INHALATION OF FOOD AND VOMIT (3) Fever Code(s): R50.9 - FEVER, UNSPECIFIED (4) Altered mental status Code(s): R41.82 - ALTERED MENTAL STATUS, UNSPECIFIED Qualifiers: Altered mental status type: unspecified Qualified Code(s): R41.82 - Altered mental status, unspecified (5) Cerebral palsy Code(s): G80.9 - CEREBRAL PALSY, UNSPECIFIED (6) Constipation Code(s): K59.00 - CONSTIPATION, UNSPECIFIED (7) Functional quadriplegia Code(s): R53.2 - FUNCTIONAL QUADRIPLEGIA (8) Mental retardation Code(s): F79 - UNSPECIFIED INTELLECTUAL DISABILITIES (9) Seizures Code(s): R56.9 - UNSPECIFIED CONVULSIONS patient continues to have repeats fevers inspite being on abx plan will continue to watch without abx for now close watch rest as per the team monitor fevers
--- NOTE | 2018-07-01 12:56 | PN ---
Progress Note, CUSTOMER ACQUISITION SPECIALIST - Note Progress Note: MBS reviewed with family, Cornelius skid machine operator, staff. Seen in [facility], in W/C, taking 25%, no overt cough.Smiling. No cough or overt congestion. Selected Entries 06/30/18 06/30/18 06/30/18 02:00 06:00 08:51 Supper Temperature 100.3 F H 100.1 F H 99.2 F 06/30/18 06/30/18 06/30/18 14:49 21:30 22:50 Supper 50% Temperature 100.1 F H 100.7 F H 101 F H 07/01/18 06:00 Supper Temperature 100.9 F H Laboratory Tests 07/01/18 06:50 WBC 7.9 Reviewed with skid machine operator single sips, no continuous drinking. She is feeding her from a cup. Tsp may be more efficient and safer. Provide Magic cup and Ensure pudding to increase nutritional intake
--- NOTE | 2018-07-01 13:43 | PN ---
Teaching Attending Note Name of Resident: Pedro Morejon ATTENDING PHYSICIAN STATEMENT I saw and evaluated the patient. I reviewed the resident's note and discussed the case with the resident. I agree with the resident's findings and plan as documented. 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 Sepsis due to RUL PNA-Tm 101. although less fevers. have been unable to obtain CT scan due to non functioning port on central line and unable to administer contrast. will hold for now. now off abx. ID on board. 2. severe malnutriton- as evident by body habitus and BMI. concern for aspiration. MBS done yesterday and now not showing signs of aspiration however can be silently aspiration. tolerating puree diet. needs to be sitting completely upright when eating. 1 tablespoon at a time. can d/c TPN 3. Abdominal distention-was tolerating feeds. appears stable 4. Acute hypoxic respiratory distress- due to PNA. titrate down supplemental oxygen as tolerated. spO2 >90%. nebs/ chest PT. pulm on board 5. Lactic acidosis, resolved 6. Cerebral palsy 7. Seizure disorder- no seizure like motion noted. cont anti-eleptics. 8. Mental retardation 9. Scoliosis 10. DVT ppx- lovenox 11. spoke with mother present at bedside. all questions answered. informed her of plan and anticipate d/c back to [facility] once afebrile 24H
--- NOTE | 2018-07-01 14:58 | PN ---
Progress Note, Physician History of Present Illness: pulmonary alert,no distress,still febrile - Current Medication List Current Medications: Active Medications Acetaminophen (Tylenol Suppository -) 650 mg [place] Q6H PRN PRN Reason: FEVER Last Admin: 07/01/18 06:50 Dose: 650 mg Baclofen (Lioresal -) 10 mg PO TID [facility] Last Admin: 07/01/18 06:23 Dose: 10 mg Bisacodyl (Dulcolax Suppository -) 10 mg RC DAILY PRN PRN Reason: CONSTIPATION Last Admin: 06/22/18 23:25 Dose: 10 mg Calcium Carbonate/Cholecalciferol (Os-Hitesh 500+D -) 1 tab PO BID [facility] Last Admin: 07/01/18 10:11 Dose: 1 tab Chlorhexidine Gluconate (Peridex -) 30 ml MM BID [facility] Last Admin: 07/01/18 10:12 Dose: Not Given Cholecalciferol (Vitamin D3 -) 400 unit PO DAILY [facility] Last Admin: 07/01/18 10:11 Dose: 400 unit Heparin Sodium (Porcine) (Heparin -) 5,000 unit SQ TID [facility] Last Admin: 07/01/18 06:23 Dose: 5,000 unit Potassium Chloride 10 meq/ (Sodium Chloride) 1,005 mls @ 50 mls/hr IVPB Q20H [facility] Stop: 07/02/18 06:44 Potassium Phosphate 30 mm/ (Dextrose) 510 mls @ 63.75 mls/hr IVPB ONCE ONE Stop: 07/01/18 19:52 Levetiracetam (Keppra Injection -) 500 mg IVPB BID [facility] Last Admin: 07/01/18 10:11 Dose: 500 mg Loratadine (Claritin -) 10 mg PO DAILY [facility] Last Admin: 07/01/18 10:11 Dose: 10 mg Nystatin (Mycostatin Ointment -) 1 applic TP BID [facility] Last Admin: 07/01/18 10:13 Dose: 1 applic Pantoprazole Sodium (Protonix Iv) 20 mg IVPUSH DAILY [facility] Last Admin: 07/01/18 10:12 Dose: 20 mg Scopolamine HBr (Transderm-Scop -) 1 patch TD Q72H [facility] Last Admin: 06/30/18 12:31 Dose: 1 patch Senna (Senna -) 2 tab PO DAILY [facility] Last Admin: 07/01/18 10:11 Dose: 2 tab - Objective Vital Signs: Vital Signs Temperature 100.9 F H 07/01/18 06:00 Pulse Rate 110 H 07/01/18 06:00 Respiratory Rate 20 06/30/18 22:50 Blood Pressure 123/75 07/01/18 06:00 O2 Sat by Pulse Oximetry (%) 96 06/30/18 21:00 Constitutional: Yes: Well Nourished, Calm Eyes: Yes: WNL HENT: Yes: WNL Neck: Yes: WNL Cardiovascular: Yes: Regular Rate and Rhythm, S1, S2 Respiratory: Yes: Rhonchi (few scatttered rhoonchi) Gastrointestinal: Yes: Normal Bowel Sounds, Soft Extremities: Yes: WNL Edema: No Labs: CBC, BMP 07/01/18 06:50 07/01/18 06:50 INR, PTT INR 1.14 (0.83-1.09) H 06/10/18 06:00 - ....Imaging Chest X-ray: Report Reviewed, Image Reviewed (-infiltrates) Assessment/Plan A/P Pneumonia likely Aspiration Sepsis Seizure Disorder Cerebral Palsy Mental Retardation - continue antibiotics as per ID - aspiration precautions - DVT prophylaxis DR EAST
--- NOTE | 2018-07-01 15:54 | PN ---
Progress Note, Physician History of Present Illness: Pt seen and examined. She is tolerating feeds. - Current Medication List Current Medications: Active Medications Acetaminophen (Tylenol Suppository -) 650 mg [place] Q6H PRN PRN Reason: FEVER Last Admin: 07/01/18 06:50 Dose: 650 mg Baclofen (Lioresal -) 10 mg PO TID [facility] Last Admin: 07/01/18 15:14 Dose: 10 mg Bisacodyl (Dulcolax Suppository -) 10 mg RC DAILY PRN PRN Reason: CONSTIPATION Last Admin: 06/22/18 23:25 Dose: 10 mg Calcium Carbonate/Cholecalciferol (Os-Hitesh 500+D -) 1 tab PO BID [facility] Last Admin: 07/01/18 10:11 Dose: 1 tab Chlorhexidine Gluconate (Peridex -) 30 ml MM BID [facility] Last Admin: 07/01/18 10:12 Dose: Not Given Cholecalciferol (Vitamin D3 -) 400 unit PO DAILY [facility] Last Admin: 07/01/18 10:11 Dose: 400 unit Heparin Sodium (Porcine) (Heparin -) 5,000 unit SQ TID [facility] Last Admin: 07/01/18 15:14 Dose: 5,000 unit Potassium Chloride 10 meq/ (Sodium Chloride) 1,005 mls @ 50 mls/hr IVPB Q20H [facility] Stop: 07/02/18 06:44 Last Admin: 07/01/18 15:15 Dose: 50 mls/hr Potassium Phosphate 30 mm/ (Dextrose) 510 mls @ 63.75 mls/hr IVPB ONCE ONE Stop: 07/01/18 19:52 Last Admin: 07/01/18 15:15 Dose: 63.75 mls/hr Levetiracetam (Keppra Injection -) 500 mg IVPB BID [facility] Last Admin: 07/01/18 10:11 Dose: 500 mg Loratadine (Claritin -) 10 mg PO DAILY [facility] Last Admin: 07/01/18 10:11 Dose: 10 mg Nystatin (Mycostatin Ointment -) 1 applic TP BID [facility] Last Admin: 07/01/18 10:13 Dose: 1 applic Pantoprazole Sodium (Protonix Iv) 20 mg IVPUSH DAILY [facility] Last Admin: 07/01/18 10:12 Dose: 20 mg Scopolamine HBr (Transderm-Scop -) 1 patch TD Q72H [facility] Last Admin: 06/30/18 12:31 Dose: 1 patch Senna (Senna -) 2 tab PO DAILY [facility] Last Admin: 07/01/18 10:11 Dose: 2 tab - Objective Vital Signs: Vital Signs Temperature 100.9 F H 07/01/18 06:00 Pulse Rate 110 H 07/01/18 06:00 Respiratory Rate 20 06/30/18 22:50 Blood Pressure 123/75 07/01/18 06:00 O2 Sat by Pulse Oximetry (%) 96 06/30/18 21:00 Constitutional: Yes: Calm Eyes: Yes: Conjunctiva Clear HENT: Yes: Atraumatic Cardiovascular: Yes: S1, S2 Respiratory: Yes: Wheezes Gastrointestinal: Yes: Soft Genitourinary: Yes: Incontinence Edema: No Neurological: Yes: Pre-Existing Deficit Labs: CBC, BMP 07/01/18 06:50 07/01/18 06:50 INR, PTT INR 1.14 (0.83-1.09) H 06/10/18 06:00 Problem List - Problems (1) Hypokalemia Code(s): E87.6 - HYPOKALEMIA (2) Aspiration pneumonia Code(s): J69.0 - PNEUMONITIS DUE TO INHALATION OF FOOD AND VOMIT (3) Fever Code(s): R50.9 - FEVER, UNSPECIFIED (4) Pneumonia Code(s): J18.9 - PNEUMONIA, UNSPECIFIED ORGANISM (5) Cerebral palsy Code(s): G80.9 - CEREBRAL PALSY, UNSPECIFIED (6) Constipation Code(s): K59.00 - CONSTIPATION, UNSPECIFIED Assessment/Plan Current Medications Generic Name Dose Route Start Last Admin Trade Name Freq PRN Reason Stop Dose Admin Acetaminophen 650 mg 06/21/18 08:58 07/01/18 06:50 Tylenol Suppository - [place] 650 mg Q6H PRN Administration FEVER Baclofen 10 mg 06/10/18 08:00 07/01/18 15:14 Lioresal - PO 10 mg TID [facility] Administration Bisacodyl 10 mg 06/10/18 14:38 06/22/18 23:25 Dulcolax Suppository - RC 10 mg DAILY PRN Administration CONSTIPATION Calcium Carbonate/Cholecalciferol 1 tab 06/10/18 22:00 07/01/18 10:11 Os-Hitesh 500+D - PO 1 tab BID [facility] Administration Chlorhexidine Gluconate 30 ml 06/10/18 22:00 07/01/18 10:12 Peridex - MM Not Given BID [facility] Cholecalciferol 400 unit 06/11/18 10:00 07/01/18 10:11 Vitamin D3 - PO 400 unit DAILY [facility] Administration Heparin Sodium (Porcine) 5,000 unit 06/27/18 14:30 07/01/18 15:14 Heparin - SQ 5,000 unit TID [facility] Administration Potassium Chloride 10 meq/ 1,005 mls @ 50 mls/hr 07/01/18 10:45 07/01/18 15: 15 Sodium Chloride IVPB 07/02/18 06:44 50 mls/hr Q20H [facility] Administration Potassium Phosphate 30 mm/ 510 mls @ 63.75 mls/hr 07/01/18 11:53 07/01/18 15: 15 Dextrose IVPB 07/01/18 19:52 63.75 mls/hr ONCE ONE Administration 30 MM/8 HR Levetiracetam 500 mg 06/10/18 22:00 07/01/18 10:11 Keppra Injection - IVPB 500 mg BID [facility] Administration Loratadine 10 mg 06/10/18 14:45 07/01/18 10:11 Claritin - PO 10 mg DAILY [facility] Administration Nystatin 1 applic 06/21/18 22:00 07/01/18 10:13 Mycostatin Ointment - TP 1 applic BID [facility] Administration Pantoprazole Sodium 20 mg 06/22/18 10:00 07/01/18 10:12 Protonix Iv IVPUSH 20 mg DAILY [facility] Administration Scopolamine HBr 1 patch 06/24/18 12:00 06/30/18 12:31 Transderm-Scop - TD 1 patch Q72H [facility] Administration Senna 2 tab 06/11/18 10:00 07/01/18 10:11 Senna - PO 2 tab DAILY [facility] Administration Impression 1. PNA 2. hypokalemia 3. hypophosphatemia 4. epilepsy 5. cerebral palsy 6. developemental delay 7. pleural effusion 8. malnutrition Plan - tpn stopped - pt tolerating diet - replace phos - monitor lytes - will follow PRN - discussed with pts mother Dr Snow
[2018-07-02] MEDS: HEPARIN NA (PORCINE) 5,000 UNITS/ML 1ML VIAL SQ SCH ×3 (05:49→21:26)
[2018-07-02] MEDS: BACLOFEN 10 MG TABLET (FP) PO SCH ×3 (05:50→21:26)
[2018-07-02] MEDS: ACETAMINOPHEN 325 MG SUPP.RECT PR PRN (06:58)
[2018-07-02 08:22] LABS: ANION GAP 7 MMOL/L (8-16); BLOOD UREA NITROGEN 9 mg/dL (7-18); CALCIUM 8.6 mg/dL (8.5-10.1); CHLORIDE 106 mmol/L (98-107); CO2 30 mmol/L (21-32); CREATININE 0.3 mg/dL (0.55-1.3); GLUCOSE,RANDOM 78 mg/dL (74-106); MAGNESIUM 1.9 mg/dL (1.8-2.4); PHOSPHOROUS 3.5 mg/dL (2.5-4.9); SODIUM 143 mmol/L (136-145)
[2018-07-02 08:23] LABS: HEMATOCRIT 24.9 % (32.4-45.2); HEMOGLOBIN 8.5 GM/dL (10.7-15.3); MCH 34.5 pg (25.7-33.7); MCHC 34.2 g/dl (32.0-36.0); MEAN CELL VOLUME 100.7 fl (80-96); MEAN PLT VOLUME 7.1 fl (7.5-11.1); PLATELET COUNT 378 K/MM3 (134-434); RBC 2.47 M/mm3 (3.60-5.2); WHITE BLOOD COUNT 6.6 K/mm3 (4.0-10.0)
[2018-07-02] MEDS ORDERED: PT OWN MED DRAWER 7, Y5N ONE ×5 (09:18→15:12)
--- NOTE | 2018-07-02 10:27 | PN ---
Progress Note (short form) - Note Progress Note: resting comfortable Current Medications Generic Name Dose Route Start Last Admin Trade Name Freq PRN Reason Stop Dose Admin Acetaminophen 650 mg 06/21/18 08:58 07/02/18 06:58 Tylenol Suppository - [place] 650 mg Q6H PRN Administration FEVER Baclofen 10 mg 06/10/18 08:00 07/02/18 05:50 Lioresal - PO 10 mg TID [facility] Administration Bisacodyl 10 mg 06/10/18 14:38 06/22/18 23:25 Dulcolax Suppository - RC 10 mg DAILY PRN Administration CONSTIPATION Calcium Carbonate/Cholecalciferol 1 tab 06/10/18 22:00 07/01/18 21:47 Os-Hitesh 500+D - PO 1 tab BID [facility] Administration Chlorhexidine Gluconate 30 ml 06/10/18 22:00 07/01/18 21:48 Peridex - MM Not Given BID [facility] Cholecalciferol 400 unit 06/11/18 10:00 07/01/18 10:11 Vitamin D3 - PO 400 unit DAILY [facility] Administration Heparin Sodium (Porcine) 5,000 unit 06/27/18 14:30 07/02/18 05:49 Heparin - SQ 5,000 unit TID [facility] Administration Levetiracetam 500 mg 06/10/18 22:00 07/01/18 21:47 Keppra Injection - IVPB 500 mg BID [facility] Administration Loratadine 10 mg 06/10/18 14:45 07/01/18 10:11 Claritin - PO 10 mg DAILY [facility] Administration Nystatin 1 applic 06/21/18 22:00 07/01/18 21:47 Mycostatin Ointment - TP 1 applic BID [facility] Administration Pantoprazole Sodium 20 mg 06/22/18 10:00 07/01/18 10:12 Protonix Iv IVPUSH 20 mg DAILY [facility] Administration Scopolamine HBr 1 patch 06/24/18 12:00 06/30/18 12:31 Transderm-Scop - TD 1 patch Q72H [facility] Administration Senna 2 tab 06/11/18 10:00 07/01/18 10:11 Senna - PO 2 tab DAILY [facility] Administration Last Vital Signs Temp Pulse Resp BP Pulse Ox 100.0 F H 109 H 18 129/75 96 07/02/18 06:00 07/02/18 06:00 07/01/18 23:43 07/02/18 06:00 07/01/18 22:00 General NAD, tracking Lungs CTA anteriorly Abdomen soft NT/ND CBCD WBC 6.6 K/mm3 (4.0-10.0) 07/02/18 07:30 RBC 2.47 M/mm3 (3.60-5.2) L 07/02/18 07:30 Hgb 8.5 GM/dL (10.7-15.3) L 07/02/18 07:30 Hct 24.9 % (32.4-45.2) L 07/02/18 07:30 MCV 100.7 fl (80-96) H 07/02/18 07:30 MCHC 34.2 g/dl (32.0-36.0) 07/02/18 07:30 RDW 16.0 % (11.6-15.6) H 07/02/18 07:30 Plt Count 378 K/MM3 (134-434) 07/02/18 07:30 MPV 7.1 fl (7.5-11.1) L 07/02/18 07:30 CMP Sodium 143 mmol/L (136-145) 07/02/18 07:30 Potassium 4.0 mmol/L (3.5-5.1) 07/02/18 07:30 Chloride 106 mmol/L (98-107) 07/02/18 07:30 Carbon Dioxide 30 mmol/L (21-32) 07/02/18 07:30 Anion Gap 7 MMOL/L (8-16) L 07/02/18 07:30 BUN 9 mg/dL (7-18) 07/02/18 07:30 Creatinine 0.3 mg/dL (0.55-1.3) L 07/02/18 07:30 Creat Clearance w eGFR > 60 (>60) 07/02/18 07:30 Calcium 8.6 mg/dL (8.5-10.1) 07/02/18 07:30 Total Bilirubin 0.4 mg/dL (0.2-1) 07/01/18 06:50 AST 20 U/L (15-37) 07/01/18 06:50 ALT 14 U/L (13-61) 07/01/18 06:50 Alkaline Phosphatase 102 U/L (45-117) 07/01/18 06:50 Total Protein 6.0 g/dl (6.4-8.2) L 07/01/18 06:50 Albumin 2.4 g/dl (3.4-5.0) L 07/01/18 06:50 ASSESSMENT AND PLAN: 52 yo M with PMHx of mental retardation, cerebral palsy with spastic quadriplegia, scoliosis, epilepsy(last seizure activity February of 2017, currently receiving diazepam 5 mg 3 tabs po BID and Keppra 500 mg BID), b/l foot contractures, 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 Sepsis due to RUL PNA-afebrile. off abx. will cont to monitor. hold CT scans at this time. ID on board. 2. severe malnutriton- as evident by body habitus and BMI. concern for aspiration. on puree diet. as per aid at bedside is tolerating well. taking small bites at a time. d/c IVF 3. Abdominal distention-was tolerating feeds. appears stable 4. Acute hypoxic respiratory distress- due to PNA. titrate down supplemental oxygen as tolerated. spO2 >90%. nebs/ chest PT. pulm on board 5. Lactic acidosis, resolved 6. Cerebral palsy 7. Seizure disorder- no seizure like motion noted. cont anti-eleptics. 8. Mental retardation 9. Scoliosis 10. DVT ppx- lovenox 11. appears to be doing well. afebrile. will monitor to ensure she is eating well. if remains afebrile plan to d/c to [facility] in next 24-48H Visit type - Emergency Visit Emergency Visit: Yes ED Registration Date: 06/09/18 Care time: The patient presented to the Emergency Department on the above date and was hospitalized for further evaluation of their emergent condition. - New Patient This patient is new to me today: No - Critical Care Critical Care patient: No - Discharge Referral Referred to [facility] Med [facility].C[facility] No
[2018-07-02] MEDS ORDERED: DEXTROSE 50%-WATER - 25 GM/50 ML VIAL ONE (10:48)
[2018-07-02] MEDS: SENNOSIDES 8.6MG TABLET (FP) PO SCH (11:01)
[2018-07-02] MEDS: LORATADINE 10 MG TABLET PO SCH (11:01)
[2018-07-02] MEDS: CHOLECALCIFEROL (VITAMIN D3) 400 UNIT TABLET (FP) PO SCH (11:01)
[2018-07-02] MEDS: CALCIUM 500MG/VIT-D 200 UNITS COMBO TABLET (FP) PO SCH ×2 (11:02→21:26)
[2018-07-02] MEDS: CHLORHEXIDINE GLUCONATE 0.12% 15ML CUP MM SCH ×2 (11:02→21:26)
[2018-07-02] MEDS: NYSTATIN 100000 UNIT/GM TOPICAL OINTMENT 15 GM TUBE TP SCH ×2 (11:02→21:26)
[2018-07-02] MEDS: levETIRAcetam 500 MG/5 ML INJECTION VIAL IVPB SCH ×2 (11:02→21:26)
[2018-07-02] MEDS: PANTOPRAZOLE SODIUM 40 MG VIAL IVPUSH SCH (11:03)
--- NOTE | 2018-07-02 11:26 | PN ---
Progress Note, Physician History of Present Illness: stable still with temp off of iv abx - Current Medication List Current Medications: Active Medications Acetaminophen (Tylenol Suppository -) 650 mg [place] Q6H PRN PRN Reason: FEVER Last Admin: 07/02/18 06:58 Dose: 650 mg Baclofen (Lioresal -) 10 mg PO TID [facility] Last Admin: 07/02/18 05:50 Dose: 10 mg Bisacodyl (Dulcolax Suppository -) 10 mg RC DAILY PRN PRN Reason: CONSTIPATION Last Admin: 06/22/18 23:25 Dose: 10 mg Calcium Carbonate/Cholecalciferol (Os-Hitesh 500+D -) 1 tab PO BID [facility] Last Admin: 07/02/18 11:02 Dose: 1 tab Chlorhexidine Gluconate (Peridex -) 30 ml MM BID [facility] Last Admin: 07/02/18 11:02 Dose: Not Given Cholecalciferol (Vitamin D3 -) 400 unit PO DAILY [facility] Last Admin: 07/02/18 11:01 Dose: 400 unit Heparin Sodium (Porcine) (Heparin -) 5,000 unit SQ TID [facility] Last Admin: 07/02/18 05:49 Dose: 5,000 unit Levetiracetam (Keppra Injection -) 500 mg IVPB BID [facility] Last Admin: 07/02/18 11:02 Dose: 500 mg Loratadine (Claritin -) 10 mg PO DAILY [facility] Last Admin: 07/02/18 11:01 Dose: 10 mg Nystatin (Mycostatin Ointment -) 1 applic TP BID [facility] Last Admin: 07/02/18 11:02 Dose: 1 applic Pantoprazole Sodium (Protonix Iv) 20 mg IVPUSH DAILY [facility] Last Admin: 07/02/18 11:03 Dose: 20 mg Scopolamine HBr (Transderm-Scop -) 1 patch TD Q72H [facility] Last Admin: 06/30/18 12:31 Dose: 1 patch Senna (Senna -) 2 tab PO DAILY [facility] Last Admin: 07/02/18 11:01 Dose: 2 tab - Objective Vital Signs: Vital Signs Temperature 100.0 F H 07/02/18 06:00 Pulse Rate 109 H 07/02/18 06:00 Respiratory Rate 18 07/01/18 23:43 Blood Pressure 129/75 07/02/18 06:00 O2 Sat by Pulse Oximetry (%) 96 07/01/18 22:00 Constitutional: Yes: No Distress, Calm Cardiovascular: Yes: Regular Rate and Rhythm Respiratory: Yes: Poor Air Entry, Rhonchi Gastrointestinal: Yes: Normal Bowel Sounds, Soft Musculoskeletal: Yes: WNL Extremities: Yes: WNL Neurological: Yes: Alert, Other Labs: CBC, BMP 07/02/18 07:30 07/02/18 07:30 INR, PTT INR 1.14 (0.83-1.09) H 06/10/18 06:00 Assessment/Plan Problem List - Problems (1) Pneumonia Code(s): J18.9 - PNEUMONIA, UNSPECIFIED ORGANISM (2) Aspiration pneumonia Code(s): J69.0 - PNEUMONITIS DUE TO INHALATION OF FOOD AND VOMIT (3) Fever Code(s): R50.9 - FEVER, UNSPECIFIED (4) Altered mental status Code(s): R41.82 - ALTERED MENTAL STATUS, UNSPECIFIED Qualifiers: Altered mental status type: unspecified Qualified Code(s): R41.82 - Altered mental status, unspecified (5) Cerebral palsy Code(s): G80.9 - CEREBRAL PALSY, UNSPECIFIED (6) Constipation Code(s): K59.00 - CONSTIPATION, UNSPECIFIED (7) Functional quadriplegia Code(s): R53.2 - FUNCTIONAL QUADRIPLEGIA (8) Mental retardation Code(s): F79 - UNSPECIFIED INTELLECTUAL DISABILITIES (9) Seizures Code(s): R56.9 - UNSPECIFIED CONVULSIONS patient continues to have repeats fevers inspite being on abx plan continue to watch without abx close watch rest as per the team monitor fevers
[2018-07-03] MEDS: HEPARIN NA (PORCINE) 5,000 UNITS/ML 1ML VIAL SQ SCH ×3 (05:49→22:01)
[2018-07-03] MEDS: BACLOFEN 10 MG TABLET (FP) PO SCH ×3 (05:50→21:59)
[2018-07-03] MEDS: ACETAMINOPHEN 325 MG SUPP.RECT PR PRN (05:51)
--- NOTE | 2018-07-03 10:22 | PN ---
Teaching Attending Note Name of Resident: Spencer Hyatt ATTENDING PHYSICIAN STATEMENT I saw and evaluated the patient. I reviewed the resident's note and discussed the case with the resident. I agree with the resident's findings and plan as documented. 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 Sepsis due to RUL PNA-afebrile >24H. off abx. will cont to monitor. hold CT scans at this time. ID on board. 2. severe malnutriton- as evident by body habitus and BMI. concern for aspiration. on puree diet. as per aid at bedside is tolerating well. taking small bites at a time. 3. Abdominal distention-was tolerating feeds. appears stable 4. Acute hypoxic respiratory distress- due to PNA. titrate down supplemental oxygen as tolerated. spO2 >90%. nebs/ chest PT. pulm on board 5. Lactic acidosis, resolved 6. Cerebral palsy 7. Seizure disorder- no seizure like motion noted. cont anti-eleptics. 8. Mental retardation 9. Scoliosis 10. DVT ppx- lovenox 11. appears to be doing well. afebrile. will monitor to ensure she is eating well. if remains afebrile plan to d/c to [facility] tomorrow
[2018-07-03] MEDS: PANTOPRAZOLE SODIUM 40 MG VIAL IVPUSH SCH (11:19)
[2018-07-03] MEDS: CALCIUM 500MG/VIT-D 200 UNITS COMBO TABLET (FP) PO SCH ×2 (11:20→21:59)
[2018-07-03] MEDS: CHOLECALCIFEROL (VITAMIN D3) 400 UNIT TABLET (FP) PO SCH (11:20)
[2018-07-03] MEDS: SENNOSIDES 8.6MG TABLET (FP) PO SCH (11:20)
[2018-07-03] MEDS: levETIRAcetam 500 MG/5 ML INJECTION VIAL IVPB SCH (11:20)
[2018-07-03] MEDS: NYSTATIN 100000 UNIT/GM TOPICAL OINTMENT 15 GM TUBE TP SCH ×2 (11:21→22:00)
[2018-07-03] MEDS: LORATADINE 10 MG TABLET PO SCH (11:21)
[2018-07-03] MEDS: CHLORHEXIDINE GLUCONATE 0.12% 15ML CUP MM SCH ×2 (11:22→22:00)
--- NOTE | 2018-07-03 12:07 | PN ---
Progress Note, Physician History of Present Illness: pulmonary calm,no distress,still febrile t100 - Current Medication List Current Medications: Active Medications Acetaminophen (Tylenol Suppository -) 650 mg [place] Q6H PRN PRN Reason: FEVER Last Admin: 07/03/18 05:51 Dose: 650 mg Baclofen (Lioresal -) 10 mg PO TID [facility] Last Admin: 07/03/18 05:50 Dose: 10 mg Bisacodyl (Dulcolax Suppository -) 10 mg RC DAILY PRN PRN Reason: CONSTIPATION Last Admin: 06/22/18 23:25 Dose: 10 mg Calcium Carbonate/Cholecalciferol (Os-Hitesh 500+D -) 1 tab PO BID [facility] Last Admin: 07/03/18 11:20 Dose: 1 tab Chlorhexidine Gluconate (Peridex -) 30 ml MM BID [facility] Last Admin: 07/03/18 11:22 Dose: Not Given Cholecalciferol (Vitamin D3 -) 400 unit PO DAILY [facility] Last Admin: 07/03/18 11:20 Dose: 400 unit Heparin Sodium (Porcine) (Heparin -) 5,000 unit SQ TID [facility] Last Admin: 07/03/18 05:49 Dose: 5,000 unit Levetiracetam (Keppra Injection -) 500 mg IVPB BID [facility] Last Admin: 07/03/18 11:20 Dose: 500 mg Loratadine (Claritin -) 10 mg PO DAILY [facility] Last Admin: 07/03/18 11:21 Dose: 10 mg Nystatin (Mycostatin Ointment -) 1 applic TP BID [facility] Last Admin: 07/03/18 11:21 Dose: 1 applic Pantoprazole Sodium (Protonix Iv) 20 mg IVPUSH DAILY [facility] Last Admin: 07/03/18 11:19 Dose: 20 mg Scopolamine HBr (Transderm-Scop -) 1 patch TD Q72H [facility] Last Admin: 06/30/18 12:31 Dose: 1 patch Senna (Senna -) 2 tab PO DAILY [facility] Last Admin: 07/03/18 11:20 Dose: 2 tab - Objective Vital Signs: Vital Signs Temperature 100.0 F H 07/03/18 06:00 Pulse Rate 112 H 07/03/18 06:00 Respiratory Rate 19 07/02/18 22:00 Blood Pressure 135/88 07/03/18 06:00 O2 Sat by Pulse Oximetry (%) 96 07/02/18 22:00 Constitutional: Yes: Calm, Thin Eyes: Yes: WNL HENT: Yes: WNL Neck: Yes: WNL Cardiovascular: Yes: Regular Rate and Rhythm, S1, S2 Respiratory: Yes: Rhonchi (few rhonchi) Gastrointestinal: Yes: Normal Bowel Sounds, Soft Extremities: Yes: Other (lower ext contractures) Labs: CBC, BMP Assessment/Plan A/P Pneumonia likely Aspiration Sepsis Seizure Disorder Cerebral Palsy Mental Retardation - chest x-ray - cultures - aspiration precautions - DVT prophylaxis DR [facility]
--- NOTE | 2018-07-03 13:01 | PN ---
Progress Note, Physician History of Present Illness: continues to improve fevers occasional now - Current Medication List Current Medications: Active Medications Acetaminophen (Tylenol Suppository -) 650 mg [place] Q6H PRN PRN Reason: FEVER Last Admin: 07/03/18 05:51 Dose: 650 mg Baclofen (Lioresal -) 10 mg PO TID [facility] Last Admin: 07/03/18 05:50 Dose: 10 mg Bisacodyl (Dulcolax Suppository -) 10 mg RC DAILY PRN PRN Reason: CONSTIPATION Last Admin: 06/22/18 23:25 Dose: 10 mg Calcium Carbonate/Cholecalciferol (Os-Hitesh 500+D -) 1 tab PO BID [facility] Last Admin: 07/03/18 11:20 Dose: 1 tab Chlorhexidine Gluconate (Peridex -) 30 ml MM BID [facility] Last Admin: 07/03/18 11:22 Dose: Not Given Cholecalciferol (Vitamin D3 -) 400 unit PO DAILY [facility] Last Admin: 07/03/18 11:20 Dose: 400 unit Diazepam (Valium -) 15 mg PO BID [facility] Heparin Sodium (Porcine) (Heparin -) 5,000 unit SQ TID [facility] Last Admin: 07/03/18 05:49 Dose: 5,000 unit Levetiracetam (Keppra Oral Solution -) 500 mg PO BID [facility] Loratadine (Claritin -) 10 mg PO DAILY [facility] Last Admin: 07/03/18 11:21 Dose: 10 mg Nystatin (Mycostatin Ointment -) 1 applic TP BID [facility] Last Admin: 07/03/18 11:21 Dose: 1 applic Pantoprazole Sodium (Protonix -) 40 mg PO DAILY [facility] Scopolamine HBr (Transderm-Scop -) 1 patch TD Q72H [facility] Last Admin: 06/30/18 12:31 Dose: 1 patch Senna (Senna -) 2 tab PO DAILY [facility] Last Admin: 07/03/18 11:20 Dose: 2 tab - Objective Vital Signs: Vital Signs Temperature 100.0 F H 07/03/18 06:00 Pulse Rate 112 H 07/03/18 06:00 Respiratory Rate 19 07/02/18 22:00 Blood Pressure 135/88 07/03/18 06:00 O2 Sat by Pulse Oximetry (%) 96 07/02/18 22:00 Constitutional: Yes: No Distress, Calm Cardiovascular: Yes: Regular Rate and Rhythm Respiratory: Yes: Poor Air Entry, Other Gastrointestinal: Yes: Normal Bowel Sounds, Soft Musculoskeletal: Yes: WNL Extremities: Yes: WNL Neurological: Yes: Alert Psychiatric: Yes: Alert Labs: CBC, BMP 07/02/18 07:30 07/02/18 07:30 INR, PTT INR 1.14 (0.83-1.09) H 06/10/18 06:00 Assessment/Plan Problem List - Problems (1) Pneumonia Code(s): J18.9 - PNEUMONIA, UNSPECIFIED ORGANISM (2) Aspiration pneumonia Code(s): J69.0 - PNEUMONITIS DUE TO INHALATION OF FOOD AND VOMIT (3) Fever Code(s): R50.9 - FEVER, UNSPECIFIED (4) Altered mental status Code(s): R41.82 - ALTERED MENTAL STATUS, UNSPECIFIED Qualifiers: Altered mental status type: unspecified Qualified Code(s): R41.82 - Altered mental status, unspecified (5) Cerebral palsy Code(s): G80.9 - CEREBRAL PALSY, UNSPECIFIED (6) Constipation Code(s): K59.00 - CONSTIPATION, UNSPECIFIED (7) Functional quadriplegia Code(s): R53.2 - FUNCTIONAL QUADRIPLEGIA (8) Mental retardation Code(s): F79 - UNSPECIFIED INTELLECTUAL DISABILITIES (9) Seizures Code(s): R56.9 - UNSPECIFIED CONVULSIONS patient continues to have repeats fevers inspite being on abx plan continue to watch without abx close watch rest as per the team monitor fevers patient improving
--- NOTE | 2018-07-03 13:38 | PN ---
Physical Exam: SUBJECTIVE: No events overnight. Recently pt family refused PEG treatment and accepted risks of aspiration. Pt has been improving and is being monitored off ABX at this point. OBJECTIVE: Vital Signs Period Temp Pulse Resp BP Sys/Ascencio Pulse Ox Last 24 Hr 98.6 F-100.0 F 104-112 19-19 125-135/72-88 96 GENERAL: Awake, nonverbal, in no acute distress HEAD: Microcephalic EYES: PERRL, no scleral icterus ENT: Moist mucous membranes. minimal secretions today NECK: R IJ line with sterile dressing and biopatch overlaying. No erythema around site LUNGS: Poor inspiratory effort with slightly coarse breath sounds much improved from previous days and weeks HEART: RRR, normal S1 and S2 without murmur ABDOMEN: Soft, nondistended, normoactive bowel sounds EXTREMITIES: Contracted, trace dependent edema in b/l UE Active Medications Generic Name Dose Route Start Last Admin Trade Name Freq PRN Reason Stop Dose Admin Acetaminophen 650 mg 06/21/18 08:58 07/03/18 05:51 Tylenol Suppository - NC 650 mg Q6H PRN Administration FEVER Baclofen 10 mg 06/10/18 08:00 07/03/18 05:50 Lioresal - PO 10 mg TID [facility] Administration Bisacodyl 10 mg 06/10/18 14:38 06/22/18 23:25 Dulcolax Suppository - RC 10 mg DAILY PRN Administration CONSTIPATION Calcium Carbonate/Cholecalciferol 1 tab 06/10/18 22:00 07/03/18 11:20 Os-Hitesh 500+D - PO 1 tab BID [facility] Administration Chlorhexidine Gluconate 30 ml 06/10/18 22:00 07/03/18 11:22 Peridex - MM Not Given BID [facility] Cholecalciferol 400 unit 06/11/18 10:00 07/03/18 11:20 Vitamin D3 - PO 400 unit DAILY [facility] Administration Diazepam 15 mg 07/03/18 22:00 Valium - PO BID [facility] Heparin Sodium (Porcine) 5,000 unit 06/27/18 14:30 07/03/18 05:49 Heparin - SQ 5,000 unit TID [facility] Administration Levetiracetam 500 mg 07/03/18 22:00 Keppra Oral Solution - PO BID [facility] Loratadine 10 mg 06/10/18 14:45 07/03/18 11:21 Claritin - PO 10 mg DAILY [facility] Administration Nystatin 1 applic 06/21/18 22:00 07/03/18 11:21 Mycostatin Ointment - TP 1 applic BID [facility] Administration Pantoprazole Sodium 40 mg 07/04/18 10:00 Protonix - PO DAILY [facility] Scopolamine HBr 1 patch 06/24/18 12:00 06/30/18 12:31 Transderm-Scop - TD 1 patch Q72H [facility] Administration Senna 2 tab 06/11/18 10:00 07/03/18 11:20 Senna - PO 2 tab DAILY [facility] Administration ASSESSMENT/PLAN: 1) Sepsis 2/2 to PNA --Afebrile for over 24hours and WBC normalized --Id on board --Currently monitoring fever trends off ABX --Concern for aspiration; PEg offered, but decision maker refused --dysphagia puree diet currently; so far tolerating once more 2) Acute hypoxic respiratory distress --Maintain SpO2 >90% --Chest PT --Duonebs prn for increased work of breathing --Pulmonology on board 3) Abdominal distention --Resolved 4) Lactic acidosis --Resolved 5) Seizure disorder --No seizure activity --Switched anti-epileptics back to PO medication --Monitor FEN: Fluids: none currently Electrolyte abnormalities: None Nutrition: Dysphagia puree; encourage PO intake due to malnutrition PPX: DVT - Lovenox daily Dispo: If continues to improve and eat well can d/c to [facility] tomorrow Case discussed with Dr. Tiffani Hyatt, DO - IM PGY-2 Visit type - Emergency Visit Emergency Visit: Yes ED Registration Date: 06/09/18 Care time: The patient presented to the Emergency Department on the above date and was hospitalized for further evaluation of their emergent condition. - New Patient This patient is new to me today: No - Critical Care Critical Care patient: No
[2018-07-03] MEDS ORDERED: PT OWN MED DRAWER 7, Y5N ONE (14:20)
[2018-07-03] MEDS: SCOPOLAMINE HYDROBROMIDE 1 PATCH PATCH.TD72 TD SCH (18:12)
[2018-07-03] MEDS: diazePAM 5 MG TABLET PO SCH (21:58)
[2018-07-03] MEDS ORDERED: levETIRAcetam 500 MG/5 ML ORAL SOLUTION (UNIT-DOSE CUPS) PO SCH (22:00)
[2018-07-03] MEDS: levETIRAcetam 500 MG/5 ML ORAL SOLUTION (UNIT-DOSE CUPS) PO SCH (22:34)
[2018-07-04] MEDS: HEPARIN NA (PORCINE) 5,000 UNITS/ML 1ML VIAL SQ SCH ×2 (05:49→13:43)
[2018-07-04] MEDS: BACLOFEN 10 MG TABLET (FP) PO SCH ×2 (05:50→13:43)
--- NOTE | 2018-07-04 11:27 | PN ---
Progress Note, Physician History of Present Illness: patient stable fevers much better - Current Medication List Current Medications: Active Medications Acetaminophen (Tylenol Suppository -) 650 mg SD Q6H PRN PRN Reason: FEVER Last Admin: 07/03/18 05:51 Dose: 650 mg Baclofen (Lioresal -) 10 mg PO TID [facility] Last Admin: 07/04/18 05:50 Dose: 10 mg Bisacodyl (Dulcolax Suppository -) 10 mg RC DAILY PRN PRN Reason: CONSTIPATION Last Admin: 06/22/18 23:25 Dose: 10 mg Calcium Carbonate/Cholecalciferol (Os-Hitesh 500+D -) 1 tab PO BID [facility] Last Admin: 07/03/18 21:59 Dose: 1 tab Chlorhexidine Gluconate (Peridex -) 30 ml MM BID [facility] Last Admin: 07/03/18 22:00 Dose: Not Given Cholecalciferol (Vitamin D3 -) 400 unit PO DAILY [facility] Last Admin: 07/03/18 11:20 Dose: 400 unit Diazepam (Valium -) 15 mg PO BID [facility] Last Admin: 07/03/18 21:58 Dose: 15 mg Heparin Sodium (Porcine) (Heparin -) 5,000 unit SQ TID [facility] Last Admin: 07/04/18 05:49 Dose: 5,000 unit Levetiracetam (Keppra Oral Solution -) 500 mg PO BID [facility] Last Admin: 07/03/18 22:34 Dose: 500 mg Loratadine (Claritin -) 10 mg PO DAILY [facility] Last Admin: 07/03/18 11:21 Dose: 10 mg Nystatin (Mycostatin Ointment -) 1 applic TP BID [facility] Last Admin: 07/03/18 22:00 Dose: 1 applic Pantoprazole Sodium (Protonix -) 40 mg PO DAILY [facility] Scopolamine HBr (Transderm-Scop -) 1 patch TD Q72H [facility] Last Admin: 07/03/18 18:12 Dose: 1 patch Senna (Senna -) 2 tab PO DAILY [facility] Last Admin: 07/03/18 11:20 Dose: 2 tab - Objective Vital Signs: Vital Signs Temperature 99.6 F 07/04/18 06:00 Pulse Rate 108 H 07/04/18 06:00 Respiratory Rate 20 07/03/18 19:14 Blood Pressure 129/84 07/04/18 06:00 O2 Sat by Pulse Oximetry (%) 96 07/03/18 21:00 Constitutional: Yes: No Distress, Calm Cardiovascular: Yes: Regular Rate and Rhythm Respiratory: Yes: Regular, On Nasal O2 Gastrointestinal: Yes: Normal Bowel Sounds, Soft Musculoskeletal: Yes: WNL Extremities: Yes: WNL Neurological: Yes: Alert, Other Labs: CBC, BMP 07/02/18 07:30 07/02/18 07:30 INR, PTT INR 1.14 (0.83-1.09) H 06/10/18 06:00 Assessment/Plan Problem List - Problems (1) Pneumonia Code(s): J18.9 - PNEUMONIA, UNSPECIFIED ORGANISM (2) Aspiration pneumonia Code(s): J69.0 - PNEUMONITIS DUE TO INHALATION OF FOOD AND VOMIT (3) Fever Code(s): R50.9 - FEVER, UNSPECIFIED (4) Altered mental status Code(s): R41.82 - ALTERED MENTAL STATUS, UNSPECIFIED Qualifiers: Altered mental status type: unspecified Qualified Code(s): R41.82 - Altered mental status, unspecified (5) Cerebral palsy Code(s): G80.9 - CEREBRAL PALSY, UNSPECIFIED (6) Constipation Code(s): K59.00 - CONSTIPATION, UNSPECIFIED (7) Functional quadriplegia Code(s): R53.2 - FUNCTIONAL QUADRIPLEGIA (8) Mental retardation Code(s): F79 - UNSPECIFIED INTELLECTUAL DISABILITIES (9) Seizures Code(s): R56.9 - UNSPECIFIED CONVULSIONS patient continues to have repeats fevers inspite being on abx plan stable off of abx close watch rest as per the team monitor fevers patient improving
[2018-07-04] MEDS ORDERED: PT OWN MED DRAWER 7, Y5N ONE (11:43)
[2018-07-04] MEDS: CHOLECALCIFEROL (VITAMIN D3) 400 UNIT TABLET (FP) PO SCH (11:47)
[2018-07-04] MEDS: PANTOPRAZOLE 40 MG TABLET (FP) PO SCH ×2 (11:47→11:48)
[2018-07-04] MEDS: SENNOSIDES 8.6MG TABLET (FP) PO SCH (11:47)
[2018-07-04] MEDS: diazePAM 5 MG TABLET PO SCH (11:48)
[2018-07-04] MEDS: CALCIUM 500MG/VIT-D 200 UNITS COMBO TABLET (FP) PO SCH (11:48)
[2018-07-04] MEDS: LORATADINE 10 MG TABLET PO SCH (11:48)
[2018-07-04] MEDS: levETIRAcetam 500 MG/5 ML ORAL SOLUTION (UNIT-DOSE CUPS) PO SCH (11:50)
[2018-07-04] MEDS: CHLORHEXIDINE GLUCONATE 0.12% 15ML CUP MM SCH (11:50)
[2018-07-04] MEDS: NYSTATIN 100000 UNIT/GM TOPICAL OINTMENT 15 GM TUBE TP SCH (12:01)
--- NOTE | 2018-07-04 12:45 | PN ---
Progress Note (short form) - Note Progress Note: PULMONARY No fevers recorded. Pt nonverbal. Vital Signs Period Temp Pulse Resp BP Sys/Ascencio Pulse Ox Last 24 Hr 98.2 F-99.6 F 101-108 20-20 121-129/75-84 96 Gen: NAD at rest Heart: RRR Lung: decreased breath sounds at the bases Abd: soft, nontender Ext: no edema, contracted CBC, BMP 07/02/18 07:30 07/02/18 07:30 Active Medications Acetaminophen (Tylenol Suppository -) 650 mg [place] Q6H PRN PRN Reason: FEVER Last Admin: 07/03/18 05:51 Dose: 650 mg Baclofen (Lioresal -) 10 mg PO TID [facility] Last Admin: 07/04/18 05:50 Dose: 10 mg Bisacodyl (Dulcolax Suppository -) 10 mg RC DAILY PRN PRN Reason: CONSTIPATION Last Admin: 06/22/18 23:25 Dose: 10 mg Calcium Carbonate/Cholecalciferol (Os-Hitesh 500+D -) 1 tab PO BID [facility] Last Admin: 07/04/18 11:48 Dose: 1 tab Chlorhexidine Gluconate (Peridex -) 30 ml MM BID [facility] Last Admin: 07/04/18 11:50 Dose: Not Given Cholecalciferol (Vitamin D3 -) 400 unit PO DAILY [facility] Last Admin: 07/04/18 11:47 Dose: 400 unit Diazepam (Valium -) 15 mg PO BID [facility] Last Admin: 07/04/18 11:48 Dose: 15 mg Heparin Sodium (Porcine) (Heparin -) 5,000 unit SQ TID [facility] Last Admin: 07/04/18 05:49 Dose: 5,000 unit Levetiracetam (Keppra Oral Solution -) 500 mg PO BID [facility] Last Admin: 07/04/18 11:50 Dose: 500 mg Loratadine (Claritin -) 10 mg PO DAILY [facility] Last Admin: 07/04/18 11:48 Dose: 10 mg Nystatin (Mycostatin Ointment -) 1 applic TP BID [facility] Last Admin: 07/04/18 12:01 Dose: 1 applic Pantoprazole Sodium (Protonix -) 40 mg PO DAILY [facility] Last Admin: 07/04/18 11:48 Dose: 40 mg Scopolamine HBr (Transderm-Scop -) 1 patch TD Q72H [facility] Last Admin: 07/03/18 18:12 Dose: 1 patch Senna (Senna -) 2 tab PO DAILY [facility] Last Admin: 07/04/18 11:47 Dose: 2 tab A/P Pneumonia likely Aspiration Sepsis Seizure Disorder Cerebral Palsy Mental Retardation - completed antibiotics - aspiration precautions - DVT prophylaxis - d/c planning
--- NOTE | 2018-07-04 12:47 | PN ---
Progress Note, OPTOMETRIC COORDINATOR - Note Progress Note: MBS reviewed with family, Cornel[facility] medical biller/coder, staff. No cough or overt congestion.CXR (-) Selected Entries 06/30/18 06/30/18 06/30/18 02:00 06:00 08:51 Supper Temperature 100.3 F H 100.1 F H 99.2 F 06/30/18 06/30/18 06/30/18 14:49 21:30 22:50 Supper 50% Temperature 100.1 F H 100.7 F H 101 F H 07/01/18 06:00 Supper Temperature 100.9 F H Laboratory Tests 07/01/18 06:50 WBC 7.9 Selected Entries 07/03/18 07/03/18 07/03/18 06:00 15:09 18:17 Breakfast 25% 25% Lunch 25% 25% Supper 25% Temperature 100.0 F H 98.2 F 07/03/18 07/03/18 07/04/18 19:14 22:00 06:00 Breakfast 25% Lunch 25% Supper 25% Temperature 98.2 F 99.6 F Laboratory Tests 07/02/18 07:30 WBC 6.6 Single sips, no continuous drinking. She is feeding her from a cup. Tsp may be more efficient and safer. Provide Magic cup and Ensure pudding to increase nutritional intake
[2018-07-04 15:26] VITALS: BP 93/62; PULSE 122; TEMP 98.7
--- NOTE | 2018-07-04 17:17 | PN ---
Teaching Attending Note Name of Resident: Spencer Villar ATTENDING PHYSICIAN STATEMENT I saw and evaluated the patient. I reviewed the resident's note and discussed the case with the resident. I agree with the resident's findings and plan as documented. 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 Sepsis due to RUL PNA-afebrile >48H. off abx. will cont to monitor. hold CT scans at this time. ID on board. 2. severe malnutrition- as evident by body habitus and BMI. concern for aspiration. on puree diet. as per aid at bedside is tolerating well. taking small bites at a time. 3. Abdominal distention-was tolerating feeds. appears stable 4. Acute hypoxic respiratory distress- due to PNA. titrate down supplemental oxygen as tolerated. spO2 >90%. nebs/ chest PT. pulm on board 5. Lactic acidosis, resolved 6. Cerebral palsy 7. Seizure disorder- no seizure like motion noted. cont anti-eleptics. 8. Mental retardation 9. Scoliosis 10. DVT ppx- lovenox 11. D/c [facility] today. Central line to be pulled prior to d/c
--- NOTE | 2018-07-04 18:08 | DS ---
Physical Exam: SUBJECTIVE: Patient seen and examined at bedside. Patient is at baseline mental status, does not appear in any acute distress. OBJECTIVE: Vital Signs Period Temp Pulse Resp BP Sys/Ascencio Pulse Ox Last 24 Hr 98.2 F-99.6 F 101-122 20-20 93-129/62-84 95-96 PHYSICAL EXAM GENERAL: Awake but not alert or oriented EYES: PERRL, no scleral icterus ENT: Moist mucous membranes. minimal secretions today, dysphagia food in mouth NECK: R IJ line removed and dressing clean LUNGS: lungs are clear to auscultation HEART: RRR, normal S1 and S2 without murmur ABDOMEN: Soft, nondistended, normoactive bowel sounds EXTREMITIES: Contracted MICROBIOLOGY 07/01/18 09:49 Blood - Peripheral Venous Blood Culture - Preliminary NO GROWTH OBTAINED AFTER 72 HOURS, INCUBATION TO CONTINUE FOR 2 DAYS. 07/01/18 10:14 Blood - Peripheral Venous Blood Culture - Preliminary NO GROWTH OBTAINED AFTER 72 HOURS, INCUBATION TO CONTINUE FOR 2 DAYS. 06/24/18 16:30 Pleural Fluid AFB Smear Concentration - Final 06/24/18 16:30 Pleural Fluid Mycobacterial Culture - Preliminary 06/24/18 16:30 Pleural Fluid Gram Stain - Final 06/24/18 16:30 Pleural Fluid Body Fluid Culture - Final NO GROWTH OF AEROBIC ORGANISMS AFTER 48 HOURS INCUBATION 06/24/18 16:30 Pleural Fluid Anaerobic Culture - Final NO ANAEROBES WERE ISOLATED 06/24/18 16:30 Pleural Fluid PETE Preparation - Preliminary 06/24/18 16:30 Pleural Fluid Fungal Culture - Preliminary 06/20/18 16:00 Blood - Peripheral Venous Blood Culture - Final NO GROWTH AFTER 5 DAYS INCUBATION 06/20/18 15:20 Blood - Peripheral Venous Blood Culture - Final NO GROWTH AFTER 5 DAYS INCUBATION 06/24/18 13:05 Urine - Urine - Catheterized Urine Culture - Final NO GROWTH OBTAINED 06/24/18 13:05 Urine For Antigen Detection Legionella Antigen - Final 06/24/18 13:05 Urine For Antigen Detection Streptococcus pneumoniae Antigen (M - Final 06/20/18 17:00 Urine - Urine - Catheterized Urine Culture - Final NO GROWTH OBTAINED 06/12/18 20:30 Blood - Peripheral Venous Blood Culture - Final NO GROWTH AFTER 5 DAYS INCUBATION 06/12/18 17:00 Blood - Peripheral Venous Blood Culture - Final NO GROWTH AFTER 5 DAYS INCUBATION 06/09/18 18:00 Blood - Peripheral Venous Blood Culture - Final NO GROWTH AFTER 5 DAYS INCUBATION 06/09/18 17:30 Blood - Peripheral Venous Blood Culture - Final NO GROWTH AFTER 5 DAYS INCUBATION 06/13/18 04:10 Urine - Urine - Catheterized Urine Culture - Final NO GROWTH OBTAINED 06/13/18 04:10 Urine For Antigen Detection Legionella Antigen - Final 06/13/18 04:10 Urine For Antigen Detection Streptococcus pneumoniae Antigen (M - Final 06/09/18 22:59 Urine - Urine - Catheterized Urine Culture - Final NO GROWTH OBTAINED 06/10/18 14:30 Nasopharyngeal Swab Influenza Types A,B Antigen - Final 06/10/18 14:30 Nasopharyngeal Swab - Final IMAGING CT 06/10: Markedly limited study with suspected acute pneumonia of the right upper lobe. Clinical correlation and follow-up recommended. Please see above discussion. CXR 06/16: Interval placement of a nasogastric tube is seen as discussed above. Apparent interval development of left basilar atelectasis/infiltrate is noted. Correlate clinically and with close follow-up radiography. A right upper lobe infiltrate noted on a recent CT study of 06/10/2018 is difficult to appreciate on radiography. Barium Swallow: IMPRESSION: Very limited study. Aspiration could not be ruled out definitively. There was audible wetness. RECOMMENDATIONS: Consider PEG placement at least for temporary nutritional management. If patient improves clinically, a repeat modified barium or trial of PO intake may be considered CT 06/23/18: Interval atelectatic changes and infiltrates in the right lung base. Interval small left pleural effusion as well as atelectatic changes and infiltrates in the dependent portion of the left lower lobe. Continued follow- up is needed. 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 Patient had [address] scan early in admission showing R upper lobe acute PNA. Patient was placed on vancomycin and zosyn. Patient continued to remain febrile for many days after beginning antibiotic therapy. It was thought that patient was microaspirating gastric contents, and so patient was made NPO and placed on NGT feeds. Despite this, patient continue to remain febrile. Her antibiotics were changed to monotherapy with a carbapenem and feeds were stopped altogether. During this time, patient was put on Clinimix and later IV lipid replacement. A family discussion was had and the decision was made to insert a central venous catheter for TPN administration. A conversation was had about PEG tube placement and it was decided not to perform the PEG. Patient had a barium swallow test and it was discovered that patient was able to pass it - diet was restarted as dysphagia puree. Patient finished course of antibiotics despite remaining febrile. Blood and urine cultures were negative on multiple sample collections. Patient's fever broke after 20 days inpatient and remained afebrile. She tolerated feeds, and was able to be discharged with precautions to elevate bed, not eat 2 hours before going to sleep, and have someone spoonfeed. Patient was discharged to [facility]. Date of Discharge: 07/04/18 Minutes to complete discharge: 42 Discharge Summary Reason For Visit: FEVER Condition: Stable - Instructions Diet, Activity, Other Instructions: Sintia was admitted for the treatment of sepsis due to aspiration pneumonia. She was treated with IV antibiotics and has since improved. Sintia had a prolonged length of stay due to fevers. Her blood cultures, urine cultures, and X rays were not suggestive of any acute infection. It was determined that Sintia may have been micro-aspirating gastric contents, which would lead her to spike fevers. We performed a speech and swallow evaluation, and it was determined that Sintia should be on a dysphagia puree diet and encouraged to eat sitting upright. Do not feed for a couple of hours before going to sleep. Take single sips on a tablespoon. Please keep Ms. Marques under standard dysphagia and aspiration precautions (elevate head of bed > 45 degrees) Please continue the rest of Sintia's home medications as prescribed before. If she continues to spike fevers and becomes more short of breath, please return to the emergency department. Referrals: James Michele Jr [Non Staff, Medical] - Disposition: HOME - Home Medications Comprehensive Discharge Medication List: Ambulatory Orders Bisacodyl [Biscolax] 10 mg RC DAILY PRN 02/21/17 Calcium 500Mg/Vit-D 200 Units [Os-Hitesh 500+D -] 1 combo PO BID 02/21/17 Cetirizine HCl [24Hour Allergy] 10 mg PO DAILY 02/21/17 Chlorhexidine Gluconate 30 ml MM BID 02/21/17 Diazepam [Valium] 15 mg PO BID 02/21/17 Ranitidine [Zantac -] 150 mg PO BID 02/21/17 Sennosides [Senna] 2 tab PO DAILY 02/21/17 levETIRAcetam [Keppra Oral Solution -] 500 mg PO BID #1 bottle 03/02/17 Baclofen 10 mg PO TID 06/13/17 Albuterol 0.083% Nebulizer Suzanne [Ventolin 0.083% Nebulizer Soln -] 1 neb NEB Q6H 06/09/18 Cholecalciferol (Vitamin D3) [Vitamin D3] 400 unit PO DAILY 06/09/18 Diazepam [Diastat Acudial] 1 each RC DAILY 06/09/18 Olopatadine HCl [Pataday] 2.5 ml OP DAILY 06/09/18 Psyllium Husk [Metamucil] 0.4 gm PO DAILY 06/09/18 Omeprazole 20 mg PO DAILY 06/10/18 This patient is new to me today: No Emergency Visit: No Critical Care patient: No - Discharge Referral Referred to [facility] No
== END 2018-07-04 15:41 | disposition home or self-care (01) | DRG 720 ==
LOC: JER 15:32 → JERBED 23:01 → UNDOADMIN 06-10 00:18 → J6S 06-10 03:58
PROVIDERS: ADMIT Internal Medicine; ATTEND Internal Medicine
PROC: 3E0G76Z Introduction of Nutritional Substance into Upper GI, Via Natural or Artificial Opening (ICD-10-PCS; 2018-06-17)
PROC: 0W9B3ZX Drainage of Left Pleural Cavity, Percutaneous Approach, Diagnostic (ICD-10-PCS; principal; 2018-06-24)
PROC: 05HM33Z Insertion of Infusion Device into Right Internal Jugular Vein, Percutaneous Approach (ICD-10-PCS; 2018-06-27)
PROC: 3E0436Z Introduction of Nutritional Substance into Central Vein, Percutaneous Approach (ICD-10-PCS; 2018-06-27)
PROC: 05HN33Z Insertion of Infusion Device into Left Internal Jugular Vein, Percutaneous Approach (ICD-10-PCS; 2018-06-28)
DX: A41.9 Sepsis, unspecified organism (principal); E43 Unspecified severe protein-calorie malnutrition; J69.0 Pneumonitis due to inhalation of food and vomit; F73 Profound intellectual disabilities; J90 Pleural effusion, not elsewhere classified; J98.11 Atelectasis; G80.0 Spastic quadriplegic cerebral palsy; G40.909 Epilepsy, unspecified, not intractable, without status epilepticus; Q45.8 Other specified congenital malformations of digestive system; R00.0 Tachycardia, unspecified; E87.2 Acidosis; R13.10 Dysphagia, unspecified; K59.00 Constipation, unspecified; H52.10 Myopia, unspecified eye; H52.209 Unspecified astigmatism, unspecified eye; H50.10 Unspecified exotropia; Q65.9 Congenital deformity of hip, unspecified; R06.03 Acute respiratory distress; K56.7 Ileus, unspecified; E83.39 Other disorders of phosphorus metabolism; R41.82 Altered mental status, unspecified; B35.4 Tinea corporis; Z68.1 Body mass index [BMI] 19.9 or less, adult; E87.6 Hypokalemia; Q67.5 Congenital deformity of spine
CPT/HCPCS: 36415; 36600; 71045-TC-FY; 71250-TC; 74018-TC-FY; 74230-TC-FY; 76942; 80048; 80053; 80061; 81003; 81015; 82042; 82150; 82803; 82945; 83605; 83615; 83721; 83735; 84100; 84157; 84478; 84484; 85025; 85027; 85610; 85730; 87040; 87070; 87075; 87086; 87102; 87116; 87205; 87206; 87210; 87804; 87899; 88108; 88305-TC; 89051; 90688; 92611-GN; 93005; 93010; 94640; 99283-25; G0008; G0480; J0131; J0475; J1644; J7030

== ENCOUNTER 2019-06-23 14:05 | Emergency (ER) | payer OTHER ==
--- NOTE | 2019-06-23 14:21 | PDOC ---
Rapid Medical Evaluation Time Seen by Provider: 06/23/19 14:19 Medical Evaluation: Allergies Allergy/AdvReac Type Severity Reaction Status Date / Time No Known Allergies Allergy Verified 06/09/18 15:38 06/23/19 14:20 Pt c/o: increasing constipation despite soap alena enema given wednesday after xray showed constipation. LBM after enema. then xray repeated today which showed increasing constipation, no vomiting, fever, or change in appetite since wednesday Pt on brief exam: vss, (no temp taken)in wheelchair and needs rectal temp + BS x 4 Pt ordered for: none Pt to proceed to the ED Discharge Disposition - Diagnosis Constipation - Referrals - Patient Instructions - Post Discharge Activity
[2019-06-23 14:26] VITALS: BP 113/62; PULSE 86; BMI 16.6
[2019-06-23] MEDS ORDERED: SODIUM PHOSPHATE/NA BIPHOS 133 ML ENEMA PR ONE (18:13)
--- NOTE | 2019-06-23 21:03 | PDOC ---
History of Present Illness - General Chief Complaint: Constipation Stated Complaint: REVISIT Time Seen by Provider: 06/23/19 14:19 History Source: Care Provider (Employee from [facility] [employer]) - History of Present Illness Travel History: No Initial Comments: 06/23/19 21:00 HISTORY OF PRESENT ILLNESS: This a 53-year-old woman with past medical history of cerebral palsy who was brought to the emergency department by residential staff after having abdominal x-ray today consistent with constipation. Staff member reports the patient was seen by primary doctor on Wednesday was noted to have small abdominal distention x-ray was performed which revealed some increased fecal burden. Patient was given a soapsuds enema with successful evacuation of the bowels. Patient has not had a bowel movement since the soapsuds enema and was sent for x-ray today. X-ray was performed here and was read by radiology staff and was noted to have increased fecal burden again. Patient sent to the emergency department for evaluation without intervention being performed. No recent travel or sick contacts. PAST MEDICAL HISTORY: Cerebral palsy SURGICAL HISTORY: Denies ALLERGIES: No known drug allergies REVIEW OF SYSTEMS General/Constitutional: Denies fever or chills. Denies weakness, weight change. HEENT: Denies change in vision. Denies ear pain or discharge. Denies sore throat. Cardiovascular: Denies chest pain or shortness of breath. Respiratory: Denies cough, wheezing, or hemoptysis. Gastrointestinal: See HPI Genitourinary: Denies dysuria, frequency, or change in urination. Musculoskeletal: Denies joint or muscle swelling or pain. Denies neck or back pain. Skin and breasts: Denies rash or easy bruising. Neurologic: Denies headache, vertigo, loss of consciousness, or loss of sensation. Psychiatric: Denies depression or anxiety. Endocrine: Denies increased thirst. Denies abnormal weight change. Hematologic/Lymphatic: Denies anemia, easy bleeding, or history of blood clots. Allergic/Immunologic: Denies hives or skin allergy. Denies latex allergy. PHYSICAL EXAM General Appearance: Well-appearing, appropriately dressed. No apparent distress. Respiratory/Chest: Lungs CTAB. No shortness of breath, chest tenderness, respiratory distress, accessory muscle use. No crackles, rales, rhonchi, stridor , wheezing, dullness Cardiovascular: RRR. S1, S2. No JVD, murmur, bradycardia, tachycardia. Vascular Pulses: Dorsalis-Pedis (R): 2+, Dorsalis-Pedis (L): 2+ Gastrointestinal/Abdominal: Normal bowel sounds. Abdomen soft, non-distended. No tenderness or rebound tenderness. No organomegaly, pulsatile mass, guarding, hernia, hepatomegaly, splenomegaly. Lymphatic: No adenopathy, tenderness. Musculoskeletal/Extremities: Normal inspection. FROM of all extremities, normal capillary refill. Pelvis Stable. No CVA tenderness. No tenderness to extremities, pedal edema, swelling, erythema or deformity. Past History - Past Medical History Allergies/Adverse Reactions: Allergies Allergy/AdvReac Type Severity Reaction Status Date / Time No Known Allergies Allergy Verified 06/23/19 14:25 Home Medications: Ambulatory Orders Bisacodyl [Biscolax] 10 mg RC DAILY PRN 02/21/17 Calcium 500Mg/Vit-D 200 Units [Os-Hitesh 500+D -] 1 combo PO BID 02/21/17 Cetirizine HCl [24Hour Allergy] 10 mg PO DAILY 02/21/17 Chlorhexidine Gluconate 30 ml MM BID 02/21/17 Diazepam [Valium] 15 mg PO BID 02/21/17 Ranitidine [Zantac -] 150 mg PO BID 02/21/17 Sennosides [Senna] 2 tab PO DAILY 02/21/17 levETIRAcetam [Keppra Oral Solution -] 500 mg PO BID #1 bottle 03/02/17 Baclofen 10 mg PO TID 06/13/17 Albuterol 0.083% Nebulizer Suzanne [Ventolin 0.083% Nebulizer Soln -] 1 neb NEB Q6H 06/09/18 Cholecalciferol (Vitamin D3) [Vitamin D3] 400 unit PO DAILY 06/09/18 Diazepam [Diastat Acudial] 1 each RC DAILY 06/09/18 Olopatadine HCl [Pataday] 2.5 ml OP DAILY 06/09/18 Psyllium Husk [Metamucil] 0.4 gm PO DAILY 06/09/18 Omeprazole 20 mg PO DAILY 06/10/18 COPD: No Seizures: Yes (EPILEPSY; NO SEIZURE SINCE 1994) Thyroid Disease: (EXOTROPIA/CONSTIPATION) - Immunization History Immunization Up to Date: Yes - Psycho Social/Smoking Cessation Hx Smoking History: Unknown if ever smoked Have you smoked in the past 12 months: No Number of Cigarettes Smoked Daily: 0 Information on smoking cessation initiated: No Hx Alcohol Use: No Drug/Substance Use Hx: No Substance Use Type: None *Physical Exam - Vital Signs Last Vital Signs Temp Pulse Resp BP Pulse Ox 86 16 113/62 100 06/23/19 14:22 06/23/19 14:22 06/23/19 14:22 06/23/19 14:22 Medical Decision Making - Medical Decision Making 06/23/19 21:03 A/P: 53-year-old woman with constipation for 5 days with radiographic evidence of increased fecal burden Abdominal exam is unremarkable Fleets enema Reassess 06/23/19 22:14 Enema given by provider. Patient with large bowel movement noted after receiving the enema. Abdominal exam remains benign. I will discharge patient back to her long-term care facility. Discharge - Discharge Information Problems reviewed: Yes Clinical Impression/Diagnosis: Constipation Qualifiers: Constipation type: unspecified constipation type Qualified Code(s): K59.00 - Constipation, unspecified Condition: Fair Disposition: HOME - Admission No - Follow up/Referral - Patient Discharge Instructions Additional Instructions: Make an appointment with her primary doctor for reevaluation. Return to the emergency department for any new or worsening symptoms. Thank you very much for choosing us to provide her emergent health care needs. - Post Discharge Activity
== END 2019-06-23 22:23 | disposition home or self-care (01) ==
LOC: JER 14:05
DX: K59.00 Constipation, unspecified (principal); G40.909 Epilepsy, unspecified, not intractable, without status epilepticus; G80.9 Cerebral palsy, unspecified; H50.10 Unspecified exotropia
CPT/HCPCS: 99282-25

== ENCOUNTER 2019-07-31 11:44 | Emergency (ER) | payer OTHER ==
[2019-07-31 12:11] VITALS: BMI 27.4
--- NOTE | 2019-07-31 12:57 | PDOC ---
History of Present Illness - General Chief Complaint: Constipation Stated Complaint: CONSTIPATION Time Seen by Provider: 07/31/19 12:26 History Source: Care Provider Exam Limitations: Physical Impairment - History of Present Illness Initial Comments: 08/03/19 05:57 HPI: 54F [place] pt PMH chronic constipation, epilepsy, intellectual disability, cerebral palsy, and functional quadriplegia presents with constipation. Pt always needs suppository or enema to facilitate BM. Pt received a suppository yesterday yielding a small pellet. Pt vomited twice overnight which concerned the staff. Prior to small BM yesterday, pt received a soap enema 1 week prior. Pt ate her usual pureed diet this AM w/o vomiting. No bloody stool, no change in her appetite, at baseline behavior, no increased agitation, no f/c. Past History - Past Medical History Allergies/Adverse Reactions: Allergies Allergy/AdvReac Type Severity Reaction Status Date / Time No Known Allergies Allergy Verified 06/23/19 14:25 Home Medications: Ambulatory Orders Diazepam Rectal Gel [Diastat *Rectal Gel*] 10 mg RC PRN PRN 07/31/19 Diazepam [Valium] 15 mg PO BID 07/31/19 COPD: No Seizures: Yes (EPILEPSY; NO SEIZURE SINCE 1994) Thyroid Disease: (EXOTROPIA/CONSTIPATION) - Immunization History Immunization Up to Date: Yes - Psycho Social/Smoking Cessation Hx Smoking History: Unknown if ever smoked Have you smoked in the past 12 months: No Number of Cigarettes Smoked Daily: 0 Information on smoking cessation initiated: No Hx Alcohol Use: No Drug/Substance Use Hx: No Substance Use Type: None Review of Systems - Review of Systems Able to Perform ROS?: No Comments:: 08/03/19 05:57 ROS: unable to obtain 2/2 pt condition No f/c baseline behavior baseline appetite (good) no further vomiting Is the patient limited Divehi proficient: Yes *Physical Exam - Vital Signs Last Vital Signs Temp Pulse Resp BP Pulse Ox 97.6 F 71 18 106/73 97 07/31/19 12:06 07/31/19 12:06 07/31/19 12:06 07/31/19 12:06 07/31/19 12:06 - Physical Exam Comments: 08/03/19 05:57 PE: limited exam 2/2 pt condition GEN: Wheelchair bound, nonverbal, awake, and alert HEENT: NC/AT, eyes tracking. Supple neck w/ FROM. CV: S1/S2, RRR, no m/r/g LUNG: CTAB, no wheezes, crackles, rales, rhonchi. GI: soft, ndnt, +BS, no guarding, no rebound. No masses. RECTAL: No hemorrhoids, masses, lesions on inspection. No active bleeding. Normal sphincter tone. No masses or nodules of the rectal vault palpated. No fecal impaction. No blood on glove. EXTREMITIES: congenital deformities of UE and LE SKIN: warm, dry, normal turgor ED Treatment Course - LABORATORY CBC & Chemistry Diagram: 07/31/19 13:37 07/31/19 13:37 - RADIOLOGY Radiology Studies Ordered: Category Date Time Status ABDOMEN-KUB FLAT PLATE [RAD] Stat Radiology 07/31/19 12:49 Ordered CHEST X-RAY PORTABLE* [RAD] Stat Radiology 07/31/19 12:49 Ordered Medical Decision Making - Medical Decision Making 07/31/19 12:52 MDM: 54F [place] pt here for constipation and vomiting overnight. Pt ate usual diet today w/o vomiting. Afebrile. fecal impaction, infection, lytes abnormality, unlikely sbo given good po intake - cbc, cmp - UA - CXR, KUB 07/31/19 14:04 No fecal impaction on rectal exam cbc, ua reviewed - f/u chem - f/u xrays - fleet enema 07/31/19 15:01 Abd XR questionable dilated bowels per ED team - CT A/P 07/31/19 15:07 chem reviewed 07/31/19 16:19 CT fecal impaction no def acute path 07/31/19 18:15 passed BM s/p enema DC to [facility] Discharge - Discharge Information Problems reviewed: Yes Clinical Impression/Diagnosis: Constipation Qualifiers: Constipation type: unspecified constipation type Qualified Code(s): K59.00 - Constipation, unspecified Condition: Stable Disposition: HOME - Admission No - Follow up/Referral - Patient Discharge Instructions Patient Printed Discharge Instructions: DI for Constipation Additional Instructions: Sintia Marques is being discharged back to your facility. CT scan of the abdomen and pelvis shows no acute pathology. After an enema and milk of magnesia, Ms. Marques produced a bowel movement. Follow up with her Primary Care Doctor in the next 5 days regarding this visit. IMMEDIATELY return to the ED if Ms. Marques experiences any worsening, new, or concerning symptoms. - Post Discharge Activity
[2019-07-31 13:51] LABS: BASO % 0.5 % (0-2.0); EOS % 6.2 % (0-4.5); HEMATOCRIT 42.9 % (32.4-45.2); HEMOGLOBIN 14.3 GM/dL (10.7-15.3); LYMPH % 31.5 % (8-40); MCH 29.8 pg (25.7-33.7); MCHC 33.4 g/dl (32.0-36.0); MEAN CELL VOLUME 89.4 fl (80-96); MEAN PLT VOLUME 7.9 fl (7.5-11.1); MONO % 7.6 % (3.8-10.2); NEUT % 54.2 % (42.8-82.8); PLATELET COUNT 235 K/MM3 (134-434); RDW 13.5 % (11.6-15.6); WHITE BLOOD COUNT 6.3 K/mm3 (4.0-10.0)
[2019-07-31 14:06] LABS: URINE APPEARANCE CLEAR; URINE BILIRUBIN NEGATIVE (NEGATIVE); URINE COLOR YELLOW; URINE GLUCOSE (UA) NEGATIVE (NEGATIVE); URINE KETONE NEGATIVE (NEGATIVE); URINE LEUK ESTERASE NEGATIVE (NEGATIVE); URINE NITRITE NEGATIVE (NEGATIVE); URINE PROTEIN NEGATIVE (NEGATIVE); URINE UROBILINOGEN 0.2 mg/dL (0.2-1.0)
[2019-07-31] MEDS ORDERED: SODIUM PHOSPHATE/NA BIPHOS 133 ML ENEMA PR ONE (14:06)
[2019-07-31 14:32] LABS: ALBUMIN 3.5 g/dl (3.4-5.0); BILIRUBIN,TOTAL 0.2 mg/dL (0.2-1); BLOOD UREA NITROGEN 10.9 mg/dL (7-18); CALCIUM 9.1 mg/dL (8.5-10.1); CREATININE 0.4 mg/dL (0.55-1.3); TOT PROT 6.9 g/dl (6.4-8.2)
--- NOTE | 2019-07-31 14:54 | PDOC ---
Attending Attestation - Resident Resident Name: LopezVincent - ED Attending Attestation I have performed the following: I have examined & evaluated the patient, The case was reviewed & discussed with the resident, I agree w/resident's findings & plan, Exceptions are as noted - HPI HPI: 07/31/19 14:49 54yo female from [place] with constipation. Per the caregiver at the bedside the patient suffers from constipation and has required fecal disimpaction before. States overnight the patient had 2 episodes of vomiting. Pt unable to provide any hx as pt is nonverbal. - Physicial Exam PE: 07/31/19 14:50 Gen: awake, nonverbal heart: +s1s2 reg lungs: cta b/l abd: soft, R sided ttp, nondistended ext: no c/c/e neuro: at baseline ms per the aide - Medical Decision Making 07/31/19 14:54 a/p: 54yo female from [place] with n/v last night. -hx of fecal impaction -rectal vault empty per the resident -xray shows dilated loops of bowel -will send for ct, labs 07/31/19 16:28 diffuse fecal retention enema ordered 07/31/19 18:05 pt has not had a bm after the enema, will add milk of mag 07/31/19 18:20 pt had a bm in the ER prior the milk of mag stable for dc to home
[2019-07-31] MEDS ORDERED: MAGNESIUM HYDROX 2400MG/30ML ORAL SUSPENSION 30 ML CUP PO ONE (17:57)
[2019-07-31 18:36] VITALS: BP 115/67; PULSE 67; TEMP 97.5
== END 2019-07-31 19:10 | disposition home or self-care (01) ==
LOC: JER 11:44
DX: K59.00 Constipation, unspecified (principal); G40.909 Epilepsy, unspecified, not intractable, without status epilepticus; G80.8 Other cerebral palsy; F79 Unspecified intellectual disabilities; R53.2 Functional quadriplegia; Z99.3 Dependence on wheelchair
CPT/HCPCS: 36415; 71045-TC-FY; 74018-TC-FY; 74176-TC; 80053; 81003; 85025; 87086; 99283-25

== ENCOUNTER 2020-04-29 13:16 | Inpatient (IN) | payer OTHER ==
[2020-04-29] MEDS ORDERED: SODIUM CHLORIDE IV ONE (15:32)
[2020-04-29 16:32] LABS: ALBUMIN 3.7 g/dl (3.4-5.0); ALK PHOS 202 U/L (45-117); ANION GAP 8 MMOL/L (8-16); BILIRUBIN,TOTAL 0.3 mg/dL (0.2-1); BLOOD UREA NITROGEN 9.6 mg/dL (7-18); CALCIUM 8.7 mg/dL (8.5-10.1); CHLORIDE 110 mmol/L (98-107); CO2 26 mmol/L (21-32); CREATININE 0.5 mg/dL (0.55-1.3); GLUCOSE,RANDOM 87 mg/dL (74-106); SGOT/AST 165 U/L (15-37); SGPT/ALT 184 U/L (13-61); SODIUM 144 mmol/L (136-145); TOT PROT 7.7 g/dl (6.4-8.2)
[2020-04-29 16:33] LABS: HEMATOCRIT 44.3 % (32.4-45.2); HEMOGLOBIN 14.6 GM/dL (10.7-15.3); MCH 30.1 pg (25.7-33.7); MEAN CELL VOLUME 91.1 fl (80-96); MEAN PLT VOLUME 8.8 fl (7.5-11.1); PLATELET COUNT 127 K/MM3 (134-434); RBC 4.86 M/mm3 (3.60-5.2); RDW 15.3 % (11.6-15.6); WHITE BLOOD COUNT 8.5 K/mm3 (4.0-10.0)
--- NOTE | 2020-04-29 16:51 | PDOC ---
History of Present Illness - History of Present Illness Initial Comments: 04/29/20 16:51 54 yo female from [facility] with pmh profound MR, cerebral palsy with spastic quadriplegia, epilepsy (since 1994), chronic constipation presents to ED for hypoxia that started today. Pt is nonvverbal at baseline history was given by Dr. Michele. Doctor explains pt is supposed to have a colonoscopy in two days for chronic constipation. When pt was given oral fluid for colonoscopy earlier today pt started desating. Pt was suctioned and O2 was still 85% at RA. Pt required 5L O2 to get pt at 93-94% o2 sat. 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 Pt was given albuterol and duoneb at 12 pm and pt did not improve and that is why pt was brought in. Pt has a history of being nonverbal at baseline but alert and responds to stimuli. Pt is not on O2 at baseline. Pt is normal BP is around 120/80. Pt was not having any prior symptoms prior to this morning and had preop labs which were normal 2 days prior to arrival. Pt is full code. PMH: cerebral palsy epilepsy, constipation profound MR Meds: baclofen, senna, albuterol clorhexidine, lorazepam, levetiracetim, citirizine Allergy: NKDA PSH: hip surgery Social: coming from [facility] PCP: Dr. Michele ( [phone] 04/29/20 18:18 <Sacha Huff - Last Filed: 04/29/20 22:44> - General History Source: Care Provider, Assisted Records Exam Limitations: Clinical Condition, Physical Impairment <Alyssa Kim - Last Filed: 04/30/20 07:45> - General Chief Complaint: Shortness of Breath Stated Complaint: Respiratory Time Seen by Provider: 04/29/20 14:50 Past History - Medical History COPD: No Seizures: Yes (EPILEPSY; NO SEIZURE SINCE 1994) Thyroid Disease: (EXOTROPIA/CONSTIPATION) - Reproductive History Is Patient Now?: No - Immunization History Immunization Up to Date: Yes - Psycho-Social/Smoking History Smoking History: Never smoked Have you smoked in the past 12 months: No Number of Cigarettes Smoked Daily: 0 - Substance Abuse Hx (Audit-C & DAST Scrn) How often the patient has a drink containing alcohol: Never Score: In Men: 4 or > Positive; In Women: 3 or > Positive: 0 Screen Result (Pos requires Nsg. Audit-10AR): Negative <Sacha Huff - Last Filed: 04/29/20 22:44> <Alyssa Kim - Last Filed: 04/30/20 07:45> - Medical History Allergies/Adverse Reactions: Allergies Allergy/AdvReac Type Severity Reaction Status Date / Time No Known Allergies Allergy Verified 04/29/20 14:42 Home Medications: Ambulatory Orders Diazepam Rectal Gel [Diastat *Rectal Gel*] 10 mg RC PRN PRN 07/31/19 Diazepam [Valium] 15 mg PO BID 07/31/19 Baclofen 10 mg PO TID 04/30/20 Calcium Carbonate/Vitamin D3 [Oystercal-D 500 mg-400 Unit Tb] 1 each PO BID 04/30/20 Chlorhexidine Gluconate [Peridex -] 15 ml MM BID 04/30/20 Docusate Sodium [Colace] 100 mg PO BID 04/30/20 Loratadine [Claritin] 10 mg PO DAILY 04/30/20 Mag Hydrox/Al Hydrox/Simeth [Mylanta Oral Suspension -] 30 ml PO PRN PRN 04/30/20 Omeprazole 20 mg PO DAILY 04/30/20 Ranitidine Oral Solution [Zantac] 150 mg PO BID 04/30/20 levETIRAcetam [Keppra -] 500 mg PO BID 04/30/20 Review of Systems - Review of Systems Able to Perform ROS?: No (pt nonverbal at baseline) <Sacha Huff - Last Filed: 04/29/20 22:44> *Physical Exam - Vital Signs Last Vital Signs Temp Pulse Resp BP Pulse Ox 97.5 F L 107 H 18 86/46 L 96 04/29/20 14:40 04/29/20 14:40 04/29/20 14:40 04/29/20 14:40 04/29/20 14:40 - Physical Exam 04/29/20 17:05 Vitals: Hr96, 94% at 2.5 L, 119/40, 26RR, 96.8 GENERAL: Awake, alert, HEAD: No signs of trauma, normocephalic, atraumatic EYES: PERRLA, EOMI, sclera anicteric, conjunctiva clear ENT: Auricles normal inspection, oropharynx clear without exudates. With excessive drooling NECK: No lymphadenopathy. JVD present LUNGS: Decreased breath sounds bilaterally HEART: Regular rate and rhythm, normal S1 and S2, no murmurs, rubs or gallops, peripheral pulses normal and equal bilaterally. ABDOMEN: Distended abdomen. Normal bowel sounds in all four quadrants EXTREMITIES : 2+ periperal pulses. dec ROM in all limbs due to increased tone in all ext. Thoracic and lumbar lordosis NEUROLOGICAL: Cranial nerves II through XII grossly intact. SKIN: cold Dry, normal turgor, no rashes or lesions noted General Appearance: Yes: Disheveled, Moderate Distress HEENT: positive: Excessive drooling <Sacha Huff - Last Filed: 04/29/20 22:44> - Vital Signs Last Vital Signs Temp Pulse Resp BP Pulse Ox 97.5 F L 107 H 18 86/46 L 96 04/29/20 14:40 04/29/20 14:40 04/29/20 14:40 04/29/20 14:40 04/29/20 14:40 <Alyssa Kim - Last Filed: 04/30/20 07:45> Heart Score/ECG Review - ECG Impressions Comment:: 04/29/20 18:07 Normal sinus rhythm at 100 bpm Normal WI QRS and QT interval Normal axis No ST changes <Sacha Huff - Last Filed: 04/29/20 22:44> ED Treatment Course - LABORATORY CBC & Chemistry Diagram: 04/29/20 16:00 04/29/20 15:30 <Sacha Huff - Last Filed: 04/29/20 22:44> - LABORATORY CBC & Chemistry Diagram: 04/30/20 06:37 04/30/20 06:37 - ADDITIONAL ORDERS Additional order review: Laboratory Results 04/29/20 04/29/20 04/29/20 16:25 16:00 16:00 PT with INR 10.60 INR 0.90 PTT (Actin FS) 55.9 H Sodium Potassium Chloride Carbon Dioxide Anion Gap BUN Creatinine Est GFR (CKD-EPI)AfAm Est GFR (CKD-EPI)NonAf Random Glucose Lactic Acid 2.1 H Calcium Total Bilirubin AST ALT Alkaline Phosphatase Creatine Kinase Troponin I Total Protein Albumin Urine Color Yellow Urine Appearance Clear Urine pH 7.5 D Ur Specific [place] 1.025 Urine Protein Negative Urine Glucose (UA) Negative Urine Ketones Negative Urine Blood 1+ H Urine Nitrite Negative Urine Bilirubin Negative Urine Urobilinogen 0.2 Ur Leukocyte Esterase Negative 04/29/20 04/29/20 15:30 15:30 PT with INR INR PTT (Actin FS) Sodium 144 Potassium 5.0 Chloride 110 H Carbon Dioxide 26 Anion Gap 8 BUN 9.6 Creatinine 0.5 L Est GFR (CKD-EPI)AfAm 128.07 Est GFR (CKD-EPI)NonAf 110.50 Random Glucose 87 Lactic Acid Calcium 8.7 Total Bilirubin 0.3 AST 165 H ALT 184 H Alkaline Phosphatase 202 H Creatine Kinase 142 Troponin I < 0.02 < 0.02 Total Protein 7.7 Albumin 3.7 Urine Color Urine Appearance Urine pH Ur Specific [place] Urine Protein Urine Glucose (UA) Urine Ketones Urine Blood Urine Nitrite Urine Bilirubin Urine Urobilinogen Ur Leukocyte Esterase 04/29/20 16:00 RBC 4.86 MCV 91.1 MCHC 33.0 RDW 15.3 MPV 8.8 Neutrophils % No Result Required. Lymphocytes % No Result Required. - RADIOLOGY Radiology Studies Ordered: Category Date Time Status CHEST X-RAY PORTABLE* [RAD] Stat Radiology 04/29/20 14:48 Taken <Alyssa Kim - Last Filed: 04/30/20 07:45> Medical Decision Making - Medical Decision Making 04/29/20 17:09 54 yo female presents to ED for hypoxia after receiving oral prep for colonscopy. Pt nonverbal at baseline. Will get cxr, EKG, cardiac enzymes, cmp, cbc, and UA to rule out infection/ aspiration pna. Will admit for hypoxia. 04/29/20 18:09 Pt Liver levels showed elevated AST, ALT, and alk phos which was elevated from two days prior preop surgery labs. Will get gallbladder Ultrasound. Pt was also given CT scan of chest and abdomen. Pt was given 30cc kg of Normal saline fluid. Fluids have not been fully run due to being transported to imaging multiple times without fluid. Pt is on 2L NC. 04/29/20 21:47 Pt HPI, ED course, and plan was discussed with resident Dr. Cori Mcintosh. Pt will be admitted to Dr. Reddy for hypoxia most likely due to pneumonitis. 04/29/20 21:54 <Sacha Huff - Last Filed: 04/29/20 22:44> Discharge - Discharge Information Problems reviewed: Yes - Admission Yes <Sacha Huff - Last Filed: 04/29/20 22:44> - Admission Yes <Alyssa Kim - Last Filed: 04/30/20 07:45> - Discharge Information Clinical Impression/Diagnosis: Hypoxia, Transaminitis Condition: Stable
[2020-04-29 16:52] LABS: INR 0.9 (0.83-1.09); PROTHROMBIN TIME (PATIENT) 10.6 SEC (9.7-13.0)
[2020-04-29 16:54] LABS: ACTIVATED PTT 55.9 SECONDS (25.2-36.5)
[2020-04-29 17:22] LABS: PH,URINE 7.5 (5.0-8.0); URINE APPEARANCE Clear; URINE BILIRUBIN Negative (NEGATIVE); URINE COLOR Yellow; URINE GLUCOSE (UA) Negative (NEGATIVE); URINE KETONE Negative (NEGATIVE); URINE LEUK ESTERASE Negative (NEGATIVE); URINE NITRITE Negative (NEGATIVE); URINE PROTEIN Negative (NEGATIVE); URINE UROBILINOGEN 0.2 mg/dL (0.2-1.0)
--- NOTE | 2020-04-29 17:26 | PDOC ---
Attending Attestation - Resident Resident Name: Sacha Huff - ED Attending Attestation I have performed the following: I have examined & evaluated the patient, The case was reviewed & discussed with the resident, I agree w/resident's findings & plan - HPI HPI: 04/29/20 17:23 54 yo female from [facility] with pmh profound MR, cerebral palsy with spastic quadriplegia, epilepsy (since 1994), chronic constipation presents to ED for hypoxia that started today. Pt is nonvverbal at baseline history was given by Dr. Michele. Doctor explains pt is supposed to have a colonoscopy in two days for chronic constipation. When pt was given oral fluid for colonoscopy earlier today pt started desating. Pt was suctioned and O2 was still 85% at RA. Pt required 5L O2 to get pt at 93-94% o2 sat. 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 Pt was given albuterol and duoneb at 12 pm and pt did not improve and that is why pt was brought in. Pt has a history of being nonverbal at baseline but alert and responds to stimuli. Pt is not on O2 at baseline. Pt is normal BP is around 120/80. Pt was not having any prior symptoms prior to this morning and had preop labs which were normal 2 days prior to arrival. Pt is full code. - Physicial Exam PE: 04/29/20 17:23 Agree with the resident's HPI and PE as documented in the electronic medical record. NAD, craniofacial deformities, disconjugate gaze. nonverbal at baseline. EOMI, PERRL, nl conjunctiva, anicteric; neck supple. lungs clear, RRR, abdomen soft nontender. no rebound, guarding. NOEL x4, clubbed feet, contracted extremities. No peripheral edema. normal color for ethnicity, WWP. - Medical Decision Making 04/29/20 17:24 Vital Signs Temp Pulse Resp BP Pulse Ox 97.5 F L 107 H 18 86/46 L 96 04/29/20 14:40 04/29/20 14:40 04/29/20 14:40 04/29/20 14:40 04/29/20 14:40 Vital signs reviewed, she is soft blood pressure, mild tachycardia. No fever here, no respiratory distress and no hypoxia Differential diagnosis includes viral syndrome, COVID-19, dehydration, anemia, electrolyte/metabolic derangements, pneumonia, aspiration pneumonitis. ACS, arrhythmia EKG minus tachycardia 100 bpm, no interval abnormalities, narrow QRS, ST and T wave segments and morphology normal. Nonspecific T wave abnormalities labs and lytes with mild transaminitis. neg trop lactic is borderline, given hydration does not appear septic cxr is limited, rotated, otherwise no acute abnormality noted. covid 19 swab. UA clear, no e/o infection given IVF hydration, bp is improving admit 04/29/20 17:27 Heart Score/ECG Review #1 ECG reviewed & interpreted by me at: 15:45 General ECG Interpretation: Sinus Rhythm 04/29/20 17:25 EKG sinus tachycardia 100 bpm, no interval abnormalities, narrow QRS, ST and T wave segments and morphology normal. Nonspecific T wave abnormalities Discharge - Discharge Information Problems reviewed: Yes Clinical Impression/Diagnosis: Hypoxia, Transaminitis Condition: Stable - Admission Yes - Follow up/Referral - Patient Discharge Instructions - Post Discharge Activity Vital Signs - Vital Signs Vital signs refused: No Pulse Rate: 95 Respiratory Rate: 18 Blood Pressure: 122/100 BP Location: Right Arm Blood Pressure position: Supine
[2020-04-29 19:22] LABS: PLATELET ESTIMATE DECREASED
--- NOTE | 2020-04-29 21:42 | PN ---
Teaching Attending Note Name of Resident: Xander Joya ATTENDING PHYSICIAN STATEMENT I saw and evaluated the patient. I reviewed the resident's note and discussed the case with the resident. I agree with the resident's findings and plan as documented. SUBJECTIVE: Patient is a 54 year old woman from [facility] - nonverbal at baseline - with PMH of Profound mental retardation, Cerebral palsy with spastic quadriplegia, Epilepsy (since 1994) and Chronic constipation presents to ER for hypoxia that started today. Her doctor explained that patient is scheduled for colonoscopy in two days to evaluate chronic constipation but when she got oral fluid (?laxative) for colonoscopy earlier today, she desaturated to 85% on room air. She improved to 93-94% on 5L O2. Also had associated increased work of breathing and rhonchi on exam. Didnot improve with Albuterol and Duoneb. On arrival in the ER she was alert and responsive to stimuli, saturating well on room air and BP was around 120/80. No reported fever, chills, vomiting, diarrhea, frequency, melena, hematochezia or hematuria. No reported history of alcohol, tobacco or illicit drug use. No reported sick contacts or recent travels. Family history is unavailable. OBJECTIVE: Alert Vital Signs Period Temp Pulse Resp BP Sys/Ascencio Pulse Ox Last 24 Hr 96.7 F-97.5 F 94-107 18-30 86-122/40-100 96-100 HEENT: No Jaundice, eye redness or discharge, PERRLA, EOMI. Normocephalic, atraumatic. External ears are normal. No nasal discharge. Neck: Supple, nontender. No palpable adenopathy or thyromegaly. No JVD Chest: Good effort. Scoliosis. Clear to auscultation and percussion. Heart: Regular. No S3, rub or murmur Abdomen: Not distended, soft, nontender and no HSM. No rebound or guarding. Normal bowel sounds. Ext: Peripheral pulses intact. No leg edema. Skin: Warm and dry. No petechiae, rash or ecchymosis. Neuro: Alert. Nonverbal. Responsive to stimuli. Psych: Unable to assess. Home Medications Medication Instructions Recorded Diazepam Rectal Gel [Diastat 10 mg RC PRN PRN 07/31/19 *Rectal Gel*] Diazepam [Valium] 15 mg PO BID 07/31/19 Abnormal Lab Results 04/29/20 04/29/20 04/29/20 15:30 16:00 16:00 Plt Count Neutrophils % (Manual) PTT (Actin FS) 55.9 H Chloride 110 H Creatinine 0.5 L Lactic Acid 2.1 H AST 165 H ALT 184 H Alkaline Phosphatase 202 H Urine Blood 04/29/20 04/29/20 16:00 16:25 Plt Count 127 L D Neutrophils % (Manual) 83.5 H PTT (Actin FS) Chloride Creatinine Lactic Acid AST ALT Alkaline Phosphatase Urine Blood 1+ H Current Medications Generic Name Dose Route Start Last Admin Trade Name Freq PRN Reason Stop Dose Admin Enoxaparin Sodium 40 mg 04/30/20 10:00 Lovenox - SQ DAILY DARWIN Lactated Ringer's 1,000 ml in 1,000 mls @ 150 mls/hr 04/29/20 22:07 04/29/20 22:59 Lactated Ringers Solution IV 150 mls/hr ASDIR DARWIN Administration Ampicillin Sodium/Sulbactam 100 mls @ 200 mls/hr 04/29/20 23:45 04/30/20 00:55 Sodium 1.5 gm/ Sodium Chloride IVPB 200 mls/hr Q6H-IV DARWIN Administration ASSESSMENT AND PLAN: 1. Aspiration pneumonia/Elevated liver enzymes - Her presentation is consistent with aspiration pneumonia. Etiology of elevated liver enzymes is unclear - they have been rising since 04/12/2020. CXR shows severe scoliosis with no evidence of acute lung disease. CT scan of chest/abdomen/pelvis with IV contrast showed mild right posterior discoid atelectasis and moderate colonic fecal retention; no evidence of cholecystitis or choledocholithiasis. Will get blood cultures, hepatitis serology, trend LFTs, treat with IV Unasyn 1.5 gm q 6 hours, IV LR according to sepsis protocol, saline enema, repeat lactic acid and consult ID/GI. Implement aspiration and seizure precautions. EKG shows NSR at 100/minute and QTc [address]-T wave changes. Initial troponin is negative. Viral testing for COVID-19 ordered and patient placed on airborne, droplet and contact isolation. Will continue comprehensive care for all of patients comorbid conditions including her Epilepsy medication, and do frequent repositioning to avoid decubitus ulcer. 2. DVT prophylaxis - Lovenox 40 mg SQ q 24 hours. 3. Advance directives - Full code
[2020-04-29] MEDS ORDERED: LACTATED RINGERS SOLUTION 1,000 ML/1,000 ML INFUS.BAG IV SCH (21:45)
[2020-04-29] MEDS: LACTATED RINGERS SOLUTION 1,000 ML/1,000 ML INFUS.BAG IV SCH (22:59)
[2020-04-29] MEDS ORDERED: AMPICILLIN NA/SULBACTAM NA 1.5 GM in SODIUM CHLORIDE 100 ML IVPB SCH ×2 (23:18→23:30)
[2020-04-30] MEDS: AMPICILLIN NA/SULBACTAM NA 1.5 GM in SODIUM CHLORIDE 100 ML IVPB SCH ×5 (00:55→20:38)
--- NOTE | 2020-04-30 03:22 | HP ---
CHIEF COMPLAINT: hypoxia PCP: Dr. Michele HISTORY OF PRESENT ILLNESS: Pt is a 54 yo F, nonverbal at baseline, from [facility] with PMH of profound mental retardation, cerebral palsy with spastic quadriplegia, epilepsy (since 1994) and chronic constipation presents to to ER for hypoxia that started earlier today. Her doctor at [place] endorses that patient is scheduled for colonoscopy in two days to evaluate chronic constipation but when she got the oral fluid in preparation for the colonoscopy, she desaturated to 85% on room air. At [place] [facility], she improved to 93-94% on 5L O2. 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 Pt's O2 saturation did not improve with Albuterol and Duonebs. Per [place] [facility] staff, no fever, chills, vomiting, diarrhea, hematuria, hematochezia. ER course was notable for: (1)CXR with no acute lung pathology (2)CT scan of chest/abdomen/pelvis with IV contrast showed mild right posterior discoid atelectasis and moderate colonic fecal retention; no evidence of cholecystitis or choledocholithiasis. Recent Travel: none Sick contacts: none PAST MEDICAL HISTORY: as per HPI PAST SURGICAL HISTORY: as per [facility] Social History: Pt resides at [facility] and is nonverbal but alert at baseline. Smoking: never Alcohol: never Drugs: never Allergies No Known Allergies Allergy (Verified 04/29/20 14:42) HOME MEDICATIONS: Home Medications Medication Instructions Recorded Diazepam Rectal Gel [Diastat 10 mg RC PRN PRN 07/31/19 *Rectal Gel*] Diazepam [Valium] 15 mg PO BID 07/31/19 REVIEW OF SYSTEMS as per HPI PHYSICAL EXAMINATION Vital Signs - 24 hr 04/29/20 04/29/20 04/29/20 14:40 15:32 18:14 Temperature 97.5 F L 96.7 F L Pulse Rate 107 H 102 H 95 H Pulse Rate [ Apical] Respiratory 18 28 H 18 Rate Blood Pressure 86/46 L 120/40 L 122/100 Blood Pressure [Left Arm] O2 Sat by Pulse 96 100 Oximetry (%) 04/29/20 04/29/20 04/29/20 18:42 19:40 21:45 Temperature 97.5 F L Pulse Rate Pulse Rate [ 98 H 94 H Apical] Respiratory 30 H 23 H Rate Blood Pressure Blood Pressure 120/100 99/58 L 131/88 [Left Arm] O2 Sat by Pulse 100 98 Oximetry (%) 04/30/20 00:39 Temperature 97.5 F L Pulse Rate Pulse Rate [ 87 Apical] Respiratory 20 Rate Blood Pressure Blood Pressure 115/76 [Left Arm] O2 Sat by Pulse 96 Oximetry (%) GENERAL: Awake, alert; nonverbal at baseline, not in acute distress; mild discomfort HEAD: Normal with no signs of trauma. EYES: Pupils equal, round and reactive to light, extraocular movements intact, sclera anicteric, conjunctiva clear. EARS, NOSE, THROAT: oropharynx clear without exudates. Moist mucous membranes. NECK: Normal range of motion, supple without lymphadenopath LUNGS: Rhonchi present bilateral upper lung lee; no wheezing HEART: Regular rate and rhythm, normal S1 and S2 without murmur, rub or gallop. ABDOMEN: Soft, nontender, mildly distended, normoactive bowel sounds, no guarding, no rebound, no masses. MUSCULOSKELETAL: Decreased ROM in all limbs due to increased tone in all extremities; contractures in upper and lower extremities as pt has spastic quadriplegia; thoracic and lumbar lordosis UPPER EXTREMITIES: 2+ pulses, well-perfused. No peripheral edema. LOWER EXTREMITIES: 2+ pulses, well-perfused. No peripheral edema. NEUROLOGICAL: alert, awake, nonverbal at baseline; pt tracking with her eyes SKIN: cool to touch, dry, normal turgor, no rashes or lesions noted Laboratory Results - last 24 hr 04/29/20 04/29/20 04/29/20 15:30 15:30 16:00 WBC RBC Hgb Hct MCV MCH MCHC RDW Plt Count MPV Neutrophils % Neutrophils % (Manual) Band Neutrophils % Lymphocytes % Lymphocytes % (Manual) Monocytes % (Manual) Eosinophils % (Manual) Basophils % (Manual) Myelocytes % (Man) Promyelocytes % (Man) Blast Cells % (Manual) Nucleated RBC % Metamyelocytes Platelet Estimate PT with INR 10.60 INR 0.90 PTT (Actin FS) 55.9 H Sodium 144 Potassium 5.0 Chloride 110 H Carbon Dioxide 26 Anion Gap 8 BUN 9.6 Creatinine 0.5 L Est GFR (CKD-EPI)AfAm 128.07 Est GFR (CKD-EPI)NonAf 110.50 Random Glucose 87 Lactic Acid Calcium 8.7 Total Bilirubin 0.3 AST 165 H ALT 184 H Alkaline Phosphatase 202 H Creatine Kinase 142 Troponin I < 0.02 < 0.02 Total Protein 7.7 Albumin 3.7 Urine Color Urine Appearance Urine pH Ur Specific [place] Urine Protein Urine Glucose (UA) Urine Ketones Urine Blood Urine Nitrite Urine Bilirubin Urine Urobilinogen Ur Leukocyte Esterase 04/29/20 04/29/20 04/29/20 16:00 16:00 16:25 WBC 8.5 RBC 4.86 Hgb 14.6 Hct 44.3 MCV 91.1 MCH 30.1 MCHC 33.0 RDW 15.3 Plt Count 127 L D MPV 8.8 Neutrophils % No Result Required. Neutrophils % (Manual) 83.5 H Band Neutrophils % 1.0 Lymphocytes % No Result Required. Lymphocytes % (Manual) 9.3 D Monocytes % (Manual) 5 D Eosinophils % (Manual) 1.0 D Basophils % (Manual) 0.0 Myelocytes % (Man) 0 D Promyelocytes % (Man) 0 Blast Cells % (Manual) 0 Nucleated RBC % 0 Metamyelocytes 0 Platelet Estimate Decreased PT with INR INR PTT (Actin FS) Sodium Potassium Chloride Carbon Dioxide Anion Gap BUN Creatinine Est GFR (CKD-EPI)AfAm Est GFR (CKD-EPI)NonAf Random Glucose Lactic Acid 2.1 H Calcium Total Bilirubin AST ALT Alkaline Phosphatase Creatine Kinase Troponin I Total Protein Albumin Urine Color Yellow Urine Appearance Clear Urine pH 7.5 D Ur Specific [place] 1.025 Urine Protein Negative Urine Glucose (UA) Negative Urine Ketones Negative Urine Blood 1+ H Urine Nitrite Negative Urine Bilirubin Negative Urine Urobilinogen 0.2 Ur Leukocyte Esterase Negative ASSESSMENT/PLAN: Pt is a 54 yo F, nonverbal at baseline, from [facility] with PMH of profound mental retardation, cerebral palsy with spastic quadriplegia, epilepsy (since 1994) and chronic constipation presents to to ER for hypoxia. Pt being admitted for sepsis likely 2/2 aspiration pneumonia. #Sepsis (likely 2/2 aspiration pneumonia) Pt with aspiration event leading to possible aspiration pneumonitis and hypoxia at [place]) T 96.7-97.5; tachycardic on arrival; hypotensive in the ED; tachypneic on arrival lactate 2.1 CXR shows severe scoliosis with no evidence of acute lung disease. CT chest showing mild right posterior discoid atelectasis - Blood, Urine, and Sputum Cx; follow CBC; follow lactate - IV fluid resuscitation via LR @ 150 cc/hr - IV Unasyn 1.5 mg q6h - ID consulted; appreciate recs - Aspiration Precautions - fall/aspiration/seizure precautions #Transaminitis (AST 165/ ALT 184/ Alk Phos 202) - etiology unclear rising since March 2020 RUQ US showing borderline GB wall thickness; inspissated bile/sludge in GB lumen; no evidence of cholecystitis or choledocholithiasis. Pt also with thrombocytopenia (127); elevated PTT (55.9) - Hepatitis serology - Trend LFTs - GI consulted; appreciate recs - monitor platelets #Chronic Constipation CT abdomen/pelvis with moderate colonic fecal retention - saline (fleet) enema - pt was scheduled for a colonoscopy in the next few days, per [place] staff - GI consulted regarding colonoscopy as well #Hypochloremia likely secondary to dehydration - giving LR for IVF hydration #Hx of Epilepsy pt on PO anti-epileptics at [place]; not tolerating PO right now will give IV alternatives - IV keppra 500 bid - IV ativan 2mg q8h #DVT PPx - Lovenox 40 sq daily #FEN -F- LR @150 cc/hr -E- monitor lytes; replete prn -N- NPO for now #Dispo - admit to med-surg Full code Family Medical History Family History: As Documented Visit type - Emergency Visit Emergency Visit: Yes ED Registration Date: 04/29/20 Care time: The patient presented to the Emergency Department on the above date and was hospitalized for further evaluation of their emergent condition. - New Patient This patient is new to me today: Yes Date on this admission: 04/30/20 - Critical Care Critical Care patient: No ATTENDING PHYSICIAN STATEMENT I saw and evaluated the patient. I reviewed the resident's note and discussed the case with the resident. I agree with the resident's findings and plan as documented. SUBJECTIVE: OBJECTIVE: ASSESSMENT AND PLAN:
[2020-04-30 07:08] LABS: BASO % 0.2 % (0-2.0); EOS % 0.9 % (0-4.5); HEMATOCRIT 38.4 % (32.4-45.2); HEMOGLOBIN 12.7 GM/dL (10.7-15.3); MCHC 33.2 g/dl (32.0-36.0); MEAN CELL VOLUME 90.3 fl (80-96); MEAN PLT VOLUME 8.9 fl (7.5-11.1); MONO % 3.5 % (3.8-10.2); NEUT % 87.4 % (42.8-82.8); PLATELET COUNT 126 K/MM3 (134-434); RBC 4.25 M/mm3 (3.60-5.2); RDW 14.8 % (11.6-15.6); WHITE BLOOD COUNT 11.5 K/mm3 (4.0-10.0)
[2020-04-30 07:27] LABS: BILIRUBIN,TOTAL 0.4 mg/dL (0.2-1); CALCIUM 8.4 mg/dL (8.5-10.1); CREATININE 0.4 mg/dL (0.55-1.3); MAGNESIUM 2.1 mg/dL (1.8-2.4); PHOSPHOROUS 2.5 mg/dL (2.5-4.9); POTASSIUM 4.1 mmol/L (3.5-5.1); TOT PROT 6.4 g/dl (6.4-8.2)
[2020-04-30] MEDS ORDERED: SODIUM PHOSPHATE/NA BIPHOS 133 ML ENEMA PR ONE (08:02)
[2020-04-30] MEDS ORDERED: levETIRAcetam 500 MG/5 ML INJECTION VIAL IVPB ONE (09:05)
[2020-04-30] MEDS ORDERED: LORazepam 2 MG/ML SDV VIAL ONE ×2 (09:06→18:12)
[2020-04-30] MEDS ORDERED: ENOXAPARIN NA (PORCINE) 40 MG/0.4 ML DISP.SYRIN SQ ONE (09:06)
--- NOTE | 2020-04-30 09:09 | EKG ---
Test Reason : Blood Pressure : / mmHG Vent. Rate : 100 BPM Atrial Rate : 100 BPM P-R Int : 184 ms QRS Dur : 082 ms QT Int : 348 ms P-R-T Axes : 010 017 -30 degrees QTc Int : 448 ms POOR DATA QUALITY, INTERPRETATION MAY BE ADVERSELY AFFECTED NORMAL SINUS RHYTHM NONSPECIFIC ST AND T WAVE ABNORMALITY ABNORMAL ECG Confirmed by Troy Altamirano MD ([id number]) on 04/30/2020 9:08:28 AM Referred By: Confirmed By:Troy Altamirano MD
[2020-04-30] MEDS: levETIRAcetam 500 MG/5 ML INJECTION VIAL IVPB SCH ×2 (09:10→21:43)
[2020-04-30] MEDS: ENOXAPARIN NA (PORCINE) 40 MG/0.4 ML DISP.SYRIN SQ SCH (09:10)
[2020-04-30] MEDS: LORazepam 2 MG/ML SDV VIAL IVPUSH SCH ×2 (09:10→18:21)
[2020-04-30] MEDS ORDERED: DOCUSATE SODIUM 100 MG CAPSULE (FP) PO SCH (10:00)
[2020-04-30] MEDS ORDERED: diazePAM RECTAL GEL 10 MG KIT (PRE-CALIBRATED) PR SCH (10:00)
[2020-04-30] MEDS ORDERED: DOCUSATE SODIUM 100 MG CAPSULE (FP) PO ONE (10:53)
[2020-04-30] MEDS: LACTATED RINGERS SOLUTION 1,000 ML/1,000 ML INFUS.BAG IV SCH ×2 (11:13→21:39)
--- NOTE | 2020-04-30 12:28 | CON.ID ---
Consult Consult Specialty:: infectious diseases Referred by:: hospitalist Reason for Consultation:: pneumonia - History of Present Illness Chief Complaint: sob History of Present Illness: 54 yo F, nonverbal at baseline, from [facility] with PMH of profound mental retardation, cerebral palsy with spastic quadriplegia, epilepsy (since 1994) and chronic constipation presents to to ER for hypoxia that started earlier today. Her doctor at [facility] endorses that patient is scheduled for colonoscopy in two days to evaluate chronic constipation but when she got the oral fluid in preparation for the colonoscopy, she desaturated to 85% on room air. At [facility], she improved to 93-94% on 5L O2. Also had associated increased work of breathing and rhonchi on exam, as per PROGRAM EVALUATION CONSULTANT at [facility]. Pt's O2 saturation did not improve with Albuterol and Duonebs. Per [facility] staff, no fever, chills, vomiting, diarrhea, hematuria, hematochezia. 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, cerebral palsy) Gastrointestinal: Yes: Constipation, GERD ...LMP: 04/29/20 ...: No Additional Medical History: Profound MR - Alcohol/Substance Use Hx Alcohol Use: No - Smoking History Smoking history: Never smoked Have you smoked in the past 12 months: No Aproximately how many cigarettes per day: 0 - Social History Usual Living Arrangement: [facility] ADL: Support Services Home Medications - Allergies Allergies/Adverse Reactions: Allergies Allergy/AdvReac Type Severity Reaction Status Date / Time No Known Allergies Allergy Verified 04/29/20 14:42 - Home Medications Home Medications: Ambulatory Orders Diazepam Rectal Gel [Diastat *Rectal Gel*] 10 mg RC PRN PRN 07/31/19 Diazepam [Valium] 15 mg PO BID 07/31/19 Calcium Carbonate/Vitamin D3 [Oystercal-D 500 mg-400 Unit Tb] 1 each PO BID 04/30/20 Chlorhexidine Gluconate [Peridex -] 15 ml MM BID 04/30/20 Docusate Sodium [Colace] 100 mg PO BID 04/30/20 Loratadine [Claritin] 10 mg PO DAILY 04/30/20 Mag Hydrox/Al Hydrox/Simeth [Mylanta Oral Suspension -] 30 ml PO PRN PRN 04/30/20 RX: Baclofen 10 mg PO TID 04/30/20 RX: Omeprazole 20 mg PO DAILY 04/30/20 Ranitidine Oral Solution [Zantac] 150 mg PO BID 04/30/20 levETIRAcetam [Keppra -] 500 mg PO BID 04/30/20 Review of Systems Unable to obtain ROS, reason: unable to obtain Physical Exam Vital Signs: Vital Signs Temperature 97.1 F L 04/30/20 05:38 Pulse Rate 100 H 04/30/20 08:01 Respiratory Rate 04/30/20 08:01 Blood Pressure 118/63 04/30/20 08:01 O2 Sat by Pulse Oximetry (%) 98 04/30/20 08:01 Constitutional: Yes: Calm Eyes: Yes: Conjunctiva Clear HENT: Yes: Atraumatic, Normocephalic Cardiovascular: Yes: Regular Rate and Rhythm Respiratory: Yes: Regular, On Nasal O2, Poor Air Entry Gastrointestinal: Yes: Normal Bowel Sounds, Soft Musculoskeletal: Yes: WNL Extremities: Yes: Other Neurological: Yes: Alert, Other Labs: CBC, BMP 04/30/20 06:37 04/30/20 06:37 Imaging - Results Chest X-ray: Report Reviewed, Image Reviewed Cat Scan: Report Reviewed, Image Reviewed Assessment/Plan 54 yo F, nonverbal at baseline, from [facility] with PMH of profound mental retardation, cerebral palsy with spastic quadriplegia, epilepsy (since 1994) and chronic constipation presents to to ER for hypoxia. Pt being admitted for sepsis likely 2/2 aspiration pneumonia. #Sepsis #Transaminitis #Chronic Constipation #Hypochloremia #Hx of Epilepsy patient probably spirated await for all cx results await for imaging study results abx rest as per theteam
--- NOTE | 2020-04-30 13:16 | CON.GI ---
Consult Consult Specialty:: GI Referred by:: Hospitalist Service Reason for Consultation:: Abnormal LFTs - History of Present Illness Chief Complaint: Hypoxia History of Present Illness: 54F from [facility] admitted for hypoxia. Asked to evaluate abnormal LFTs. H&P also states that she was going to have a colonoscopy in the near future. CT scan of A/P revealed diffuse fecal retention. Health aid is present with her, however, cannot provide much more information. Liver chemistries are improving. Being treated for possible PNA. Depite a history of chronic constipation, the only bowel medication listed is colace 100mg PO BID. 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, cerebral palsy) Gastrointestinal: Yes: Constipation, GERD ...LMP: 04/29/20 ...: No Additional Medical History: Profound MR - Alcohol/Substance Use Hx Alcohol Use: No - Smoking History Smoking history: Never smoked Have you smoked in the past 12 months: No Aproximately how many cigarettes per day: 0 - Social History Usual Living Arrangement: [facility] ADL: Support Services Home Medications - Allergies Allergies/Adverse Reactions: Allergies Allergy/AdvReac Type Severity Reaction Status Date / Time No Known Allergies Allergy Verified 04/29/20 14:42 - Home Medications Home Medications: Ambulatory Orders Diazepam Rectal Gel [Diastat *Rectal Gel*] 10 mg RC PRN PRN 07/31/19 Diazepam [Valium] 15 mg PO BID 07/31/19 Baclofen 10 mg PO TID 04/30/20 Calcium Carbonate/Vitamin D3 [Oystercal-D 500 mg-400 Unit Tb] 1 each PO BID 04/30/20 Chlorhexidine Gluconate [Peridex -] 15 ml MM BID 04/30/20 Docusate Sodium [Colace] 100 mg PO BID 04/30/20 Loratadine [Claritin] 10 mg PO DAILY 04/30/20 Mag Hydrox/Al Hydrox/Simeth [Mylanta Oral Suspension -] 30 ml PO PRN PRN 04/30/20 Omeprazole 20 mg PO DAILY 04/30/20 Ranitidine Oral Solution [Zantac] 150 mg PO BID 04/30/20 levETIRAcetam [Keppra -] 500 mg PO BID 04/30/20 Physical Exam-GI Vital Signs: Vital Signs Temperature 97.1 F L 04/30/20 05:38 Pulse Rate 100 H 04/30/20 08:01 Respiratory Rate 20 04/30/20 08:01 Blood Pressure 118/63 04/30/20 08:01 O2 Sat by Pulse Oximetry (%) 98 04/30/20 08:01 Constitutional: Yes: Calm Eyes: No: Sclera Icterus Cardiovascular: Yes: Tachycardia, Other (heart sounds obscured by upper airway noise) Respiratory: Yes: Other (Breath sounds obscured by upper airway noise) Gastrointestinal Inspection: Yes: Other (abdomen is rotated to the left when compared to the remainder of her torso) ...Auscultate: Yes: Normoactive Bowel Sounds ...Palpate: Yes: Soft. No: Tenderness (No griacing upon palpation) ...Percussion: No: Tympanitic Edema: LLE: Trace, RLE: Trace Neurological: Yes: Other (Awake) Labs: CBC, BMP 04/30/20 06:37 04/30/20 06:37 INR, PTT INR 0.90 (0.83-1.09) 04/29/20 16:00 Problem List - Problems (1) Abnormal liver function tests Assessment/Plan: Improving Suspect reactive from systemic process such as infection/PNA as opposed to primary hepatiobiliary process Avoid hepatotoxic agents Monitor LFTs Code(s): R94.5 - ABNORMAL RESULTS OF LIVER FUNCTION STUDIES (2) Constipation Assessment/Plan: Only bowel med listed on admission list was colcae Advise: MiraLAX 17g TID for 3 days followed by twice daily Senna liquid nightly Can revisit the proposed colonoscopy with whomever was going to perform the colonoscopy when she returns to [facility] when acute issues are resolved. Aspiration precautions Recall GI as needed Code(s): K59.00 - CONSTIPATION, UNSPECIFIED Qualifiers: Constipation type: unspecified constipation type Qualified Code(s): K59.00 - Constipation, unspecified
--- NOTE | 2020-04-30 15:31 | PN ---
Teaching Attending Note Name of Resident: Sue Layton ATTENDING PHYSICIAN STATEMENT I saw and evaluated the patient. I reviewed the resident's note and discussed the case with the resident. I agree with the resident's findings and plan as documented. SUBJECTIVE: Per aid at bedside, patient tolerates PO intake well Patient is non verbal OBJECTIVE: Vital Signs Period Temp Pulse Resp BP Sys/Ascencio Pulse Ox Last 24 Hr 96.7 F-97.5 F 87-102 14-30 99-131/40-100 96-100 GENERAL: Sleeping HEAD: Normal with no signs of trauma. EYES: Pupils equal, round and reactive to light, extraocular movements intact, sclera anicteric, conjunctiva clear. EARS, NOSE, THROAT: Ears normal, nares patent, Moist mucous membranes. NECK: Normal range of motion, No JVD, LUNGS: Breath sounds equal, clear to auscultation anteriorily HEART: Regular tachycardic rate ABDOMEN: distended, voluntary guarding MUSCULOSKELETAL: Normal range of motion at all joints. No bony deformities or tenderness. No CVA tenderness. EXTREMITIES: 2+ pulses, warm, well-perfused. No calf tenderness. No peripheral edema. NEUROLOGICAL: Unable to assess PSYCHIATRIC: Unable to assess SKIN: Warm, dry, normal turgor, no rashes or lesions noted. ASSESSMENT AND PLAN: 54 y/o F with intellectual disability who presents for hypotension/hypoxia Sepsis likely in setting of aspiration PNA vs. Pneumonitis Patient off Oxygen at this time-was on 5L at time of arrival Continue IV abx at this time Await results of blood Cx, Urine Cx PRN Tylenol for fever Appreciate ID recs Abdominal pain/guarding -CT with heavy stool burden Will need bowel regimen with Enema as well as Miralax GI Consult Consider Colonoscopy as inpatient
--- NOTE | 2020-04-30 15:37 | PN ---
Physical Exam: SUBJECTIVE: Patient seen and examined in holding. Patient is nonverbal at baseline. Patient does not appear to be in distress. Accompanied by Aid. Patient tolerating full diet well with mildly rigid abdomen. OBJECTIVE: Vital Signs Period Temp Pulse Resp BP Sys/Ascencio Pulse Ox Last 24 Hr 97.1 F-97.5 F 87-100 14-30 99-131/58-100 96-100 GENERAL: The patient is awake, alert, and fully oriented, in no acute distress. HEAD: Normal with no signs of trauma. LUNGS:rhonchi heard HEART: Regular rate and rhythm, S1, S2 without murmur, rub or gallop. ABDOMEN: Soft, nontender, distended, normoactive bowel sounds EXTREMITIES: 2+ pulses, warm, well-perfused, no edema. Laboratory Results - last 24 hr 04/29/20 04/29/20 04/29/20 15:30 15:30 16:00 WBC RBC Hgb Hct MCV MCH MCHC RDW Plt Count MPV Absolute Neuts (auto) Neutrophils % Neutrophils % (Manual) Band Neutrophils % Lymphocytes % Lymphocytes % (Manual) Monocytes % Monocytes % (Manual) Eosinophils % Eosinophils % (Manual) Basophils % Basophils % (Manual) Myelocytes % (Man) Promyelocytes % (Man) Blast Cells % (Manual) Nucleated RBC % Metamyelocytes Platelet Estimate PT with INR 10.60 INR 0.90 PTT (Actin FS) 55.9 H Sodium 144 Potassium 5.0 Chloride 110 H Carbon Dioxide 26 Anion Gap 8 BUN 9.6 Creatinine 0.5 L Est GFR (CKD-EPI)AfAm 128.07 Est GFR (CKD-EPI)NonAf 110.50 Random Glucose 87 Lactic Acid Calcium 8.7 Phosphorus Magnesium Total Bilirubin 0.3 AST 165 H ALT 184 H Alkaline Phosphatase 202 H Creatine Kinase 142 Troponin I < 0.02 < 0.02 Total Protein 7.7 Albumin 3.7 Urine Color Urine Appearance Urine pH Ur Specific [place] Urine Protein Urine Glucose (UA) Urine Ketones Urine Blood Urine Nitrite Urine Bilirubin Urine Urobilinogen Ur Leukocyte Esterase 04/29/20 04/29/20 04/29/20 16:00 16:00 16:25 WBC 8.5 RBC 4.86 Hgb 14.6 Hct 44.3 MCV 91.1 MCH 30.1 MCHC 33.0 RDW 15.3 Plt Count 127 L D MPV 8.8 Absolute Neuts (auto) Neutrophils % No Result Required. Neutrophils % (Manual) 83.5 H Band Neutrophils % 1.0 Lymphocytes % No Result Required. Lymphocytes % (Manual) 9.3 D Monocytes % Monocytes % (Manual) 5 D Eosinophils % Eosinophils % (Manual) 1.0 D Basophils % Basophils % (Manual) 0.0 Myelocytes % (Man) 0 D Promyelocytes % (Man) 0 Blast Cells % (Manual) 0 Nucleated RBC % 0 Metamyelocytes 0 Platelet Estimate Decreased PT with INR INR PTT (Actin FS) Sodium Potassium Chloride Carbon Dioxide Anion Gap BUN Creatinine Est GFR (CKD-EPI)AfAm Est GFR (CKD-EPI)NonAf Random Glucose Lactic Acid 2.1 H Calcium Phosphorus Magnesium Total Bilirubin AST ALT Alkaline Phosphatase Creatine Kinase Troponin I Total Protein Albumin Urine Color Yellow Urine Appearance Clear Urine pH 7.5 D Ur Specific [place] 1.025 Urine Protein Negative Urine Glucose (UA) Negative Urine Ketones Negative Urine Blood 1+ H Urine Nitrite Negative Urine Bilirubin Negative Urine Urobilinogen 0.2 Ur Leukocyte Esterase Negative 04/30/20 04/30/20 06:37 06:37 WBC 11.5 H RBC 4.25 Hgb 12.7 Hct 38.4 MCV 90.3 MCH 30.0 MCHC 33.2 RDW 14.8 Plt Count 126 L MPV 8.9 Absolute Neuts (auto) 10.0 H Neutrophils % 87.4 H D Neutrophils % (Manual) Band Neutrophils % Lymphocytes % 8.0 D Lymphocytes % (Manual) Monocytes % 3.5 L Monocytes % (Manual) Eosinophils % 0.9 D Eosinophils % (Manual) Basophils % 0.2 Basophils % (Manual) Myelocytes % (Man) Promyelocytes % (Man) Blast Cells % (Manual) Nucleated RBC % 0 Metamyelocytes Platelet Estimate PT with INR INR PTT (Actin FS) Sodium 140 Potassium 4.1 Chloride 107 Carbon Dioxide 28 Anion Gap 5 L BUN 6.0 L Creatinine 0.4 L Est GFR (CKD-EPI)AfAm 137.82 Est GFR (CKD-EPI)NonAf 118.91 Random Glucose 74 Lactic Acid Calcium 8.4 L Phosphorus 2.5 Magnesium 2.1 Total Bilirubin 0.4 AST 70 H ALT 118 H Alkaline Phosphatase 171 H Creatine Kinase Troponin I Total Protein 6.4 Albumin 3.0 L Urine Color Urine Appearance Urine pH Ur Specific [place] Urine Protein Urine Glucose (UA) Urine Ketones Urine Blood Urine Nitrite Urine Bilirubin Urine Urobilinogen Ur Leukocyte Esterase Active Medications Generic Name Dose Route Start Last Admin Trade Name Freq PRN Reason Stop Dose Admin Enoxaparin Sodium 40 mg 04/30/20 10:00 04/30/20 09:10 Lovenox - SQ 40 mg DAILY DARWIN Administration Lactated Ringer's 1,000 ml in 1,000 mls @ 150 mls/hr 04/29/20 22:07 04/30/20 11:13 Lactated Ringers Solution IV 150 mls/hr ASDIR DARWIN Administration Ampicillin Sodium/Sulbactam 100 mls @ 200 mls/hr 04/29/20 23:45 04/30/20 13:50 Sodium 1.5 gm/ Sodium Chloride IVPB 200 mls/hr Q6H-IV DARWIN Administration Levetiracetam 500 mg 04/30/20 10:00 04/30/20 09:10 Keppra Injection - IVPB 500 mg BID DARWIN Administration Lorazepam 2 mg 04/30/20 09:00 04/30/20 09:10 Ativan Injection - IVPUSH 2 mg Q8H-IV DARWIN Administration Polyethylene Glycol 17 gm 04/30/20 14:00 Miralax (For Daily Use) - PO 05/02/20 13:59 TID DARWIN Senna 8.8 mg 04/30/20 22:00 Senna Oral Solution - PO HS DARWIN ASSESSMENT/PLAN: Ms. Marques is a 54 y/o F with severe mental disability from [facility], spastic quadriplegia secondary to cerebral palsy, and chronic constipation presented to the ED for hypotension/hypoxia after oral fluid prepping for colonoscopy. # SEPSIS - possible aspiration pneumonia - patient not requiring O2 - blood cultures pending - urine cultures pending - Infectious disease on board (Dr. Martinez) appreciate the recommendations. - patient temp at 97.1 - tylenol prn for pain - Aspiration precaution - Hepatitis panel ordered # Abdominal pain/guarding - LFT resolving - GI consulted (Dr. Brooke) - MiraLAX 17g TID for 3 days followed by twice daily - Senna liquid nightly - CT - heavy stool burden #covid - pending Visit type - Emergency Visit Emergency Visit: Yes ED Registration Date: 04/29/20 Care time: The patient presented to the Emergency Department on the above date and was hospitalized for further evaluation of their emergent condition. - New Patient This patient is new to me today: Yes Date on this admission: 04/30/20 - Critical Care Critical Care patient: No - Discharge Referral Referred to [facility] No ATTENDING PHYSICIAN STATEMENT I saw and evaluated the patient. I reviewed the resident's note and discussed the case with the resident. I agree with the resident's findings and plan as documented. SUBJECTIVE: OBJECTIVE: ASSESSMENT AND PLAN:
[2020-04-30] MEDS: POLYETHYLENE GLYCOL 3350 119 GM BTL PO SCH ×2 (15:40→21:39)
[2020-04-30] MEDS: SENNOSIDES 8.8 MG/5 ML BULK BOTTLE PO SCH (21:39)
[2020-05-01] MEDS: AMPICILLIN NA/SULBACTAM NA 1.5 GM in SODIUM CHLORIDE 100 ML IVPB SCH ×2 (02:37→11:24)
[2020-05-01] MEDS: LORazepam 2 MG/ML SDV VIAL IVPUSH SCH ×3 (02:37→19:00)
[2020-05-01] MEDS: POLYETHYLENE GLYCOL 3350 119 GM BTL PO SCH ×3 (05:48→21:25)
[2020-05-01 07:56] LABS: HEMATOCRIT 37.1 % (32.4-45.2); HEMOGLOBIN 12.5 GM/dL (10.7-15.3); MCH 30.6 pg (25.7-33.7); MCHC 33.7 g/dl (32.0-36.0); MEAN CELL VOLUME 90.8 fl (80-96); MEAN PLT VOLUME 9.1 fl (7.5-11.1); PLATELET COUNT 121 K/MM3 (134-434); RBC 4.08 M/mm3 (3.60-5.2); RDW 15.1 % (11.6-15.6); WHITE BLOOD COUNT 6.4 K/mm3 (4.0-10.0)
[2020-05-01 08:28] LABS: BLOOD UREA NITROGEN 13.6 mg/dL (7-18); CALCIUM 8.5 mg/dL (8.5-10.1); CREATININE 0.4 mg/dL (0.55-1.3); POTASSIUM 4.3 mmol/L (3.5-5.1)
[2020-05-01] MEDS ORDERED: DEXTROSE 50%-WATER - 25 GM/50 ML VIAL IVPUSH ONE (08:44)
[2020-05-01] MEDS: LACTATED RINGERS SOLUTION 1,000 ML/1,000 ML INFUS.BAG IV SCH (09:29)
[2020-05-01] MEDS: levETIRAcetam 500 MG/5 ML INJECTION VIAL IVPB SCH ×2 (09:31→21:27)
[2020-05-01] MEDS: ENOXAPARIN NA (PORCINE) 40 MG/0.4 ML DISP.SYRIN SQ SCH (09:34)
--- NOTE | 2020-05-01 11:31 | PN ---
Progress Note, Physician History of Present Illness: stable breathing easily afebrile - Current Medication List Current Medications: Active Medications Enoxaparin Sodium (Lovenox -) 40 mg SQ DAILY DARWIN Last Admin: 05/01/20 09:34 Dose: 40 mg Documented by: Lactated Ringer's (Lactated Ringers Solution) 1,000 ml in 1,000 mls @ 150 mls/hr IV ASDIR DARWIN Last Admin: 05/01/20 09:29 Dose: 150 mls/hr Documented by: Dextrose/Lactated Ringer's (D5-Lr -) 1,000 mls @ 83 mls/hr IV ASDIR DARWIN Levetiracetam (Keppra Injection -) 500 mg IVPB BID DARWIN Last Admin: 05/01/20 09:31 Dose: 500 mg Documented by: Lorazepam (Ativan Injection -) 2 mg IVPUSH Q8H-IV DARWIN Last Admin: 05/01/20 09:30 Dose: 2 mg Documented by: Polyethylene Glycol (Miralax (For Daily Use) -) 17 gm PO TID DARWIN Stop: 05/02/20 13:59 Last Admin: 05/01/20 05:48 Dose: Not Given Documented by: Senna (Senna Oral Solution -) 8.8 mg PO HS DARWIN Last Admin: 04/30/20 21:39 Dose: Not Given Documented by: - Objective Vital Signs: Vital Signs Temperature 97.0 F L 05/01/20 05:00 Pulse Rate 75 05/01/20 05:00 Respiratory Rate 20 05/01/20 05:00 Blood Pressure 124/75 05/01/20 05:00 O2 Sat by Pulse Oximetry (%) 99 05/01/20 05:00 Constitutional: Yes: No Distress, Calm Cardiovascular: Yes: S1, S2 Respiratory: Yes: Regular, Poor Air Entry, Other Gastrointestinal: Yes: Normal Bowel Sounds, Soft Musculoskeletal: Yes: WNL Extremities: Yes: WNL Neurological: Yes: Alert Labs: CBC, BMP 05/01/20 07:05 05/01/20 07:05 INR, PTT INR 0.90 (0.83-1.09) 04/29/20 16:00 Assessment/Plan 54 yo F, nonverbal at baseline, from [facility] with PMH of profound mental retardation, cerebral palsy with spastic quadriplegia, epilepsy (since 1994) and chronic constipation presents to to ER for hypoxia. Pt being admitted for sepsis likely 2/2 aspiration pneumonia. #Sepsis #Transaminitis #Chronic Constipation #Hypochloremia #Hx of Epilepsy all imaging studies noted can d/c abx and monitor cx reports noted asp precautions nutrition rest as per the team
--- NOTE | 2020-05-01 13:36 | PN ---
Physical Exam: SUBJECTIVE: Patient seen and examined at bedside. Patient lethargic - BGM reported to be in 40's - given IV push of dextrose. Patient never received miralax or any PO medications. Nurses instructed to give PO meds. Will monitor for BM OBJECTIVE: Vital Signs Period Temp Pulse Resp BP Sys/Ascencio Pulse Ox Last 24 Hr 96.1 F-97.0 F 75-100 18-20 111-126/66-94 98-99 GENERAL: The patient is awake, alert, and fully oriented, in no acute distress. HEAD: Normal with no signs of trauma. LUNGS: Breath sounds equal, clear to auscultation bilaterally, no wheezes, no crackles, no accessory muscle use. HEART: Regular rate and rhythm, S1, S2 without murmur, rub or gallop. ABDOMEN: DISTENDED EXTREMITIES: 2+ pulses, warm, well-perfused, no edema. (FEET APPEARANCE ARE BASELINE) SKIN: Warm, dry, normal turgor, no rashes or lesions noted Laboratory Results - last 24 hr 04/30/20 05/01/20 05/01/20 08:00 07:05 07:05 WBC 6.4 RBC 4.08 Hgb 12.5 Hct 37.1 MCV 90.8 MCH 30.6 MCHC 33.7 RDW 15.1 Plt Count 121 L MPV 9.1 Sodium 140 Potassium 4.3 Chloride 106 Carbon Dioxide 22 Anion Gap 12 BUN 13.6 Creatinine 0.4 L Est GFR (CKD-EPI)AfAm 137.82 Est GFR (CKD-EPI)NonAf 118.91 POC Glucometer Random Glucose 44 L* Calcium 8.5 COVID-19 ([facility]) Not detected 05/01/20 05/01/20 08:37 10:19 WBC RBC Hgb Hct MCV MCH MCHC RDW Plt Count MPV Sodium Potassium Chloride Carbon Dioxide Anion Gap BUN Creatinine Est GFR (CKD-EPI)AfAm Est GFR (CKD-EPI)NonAf POC Glucometer 45 191 Random Glucose Calcium COVID-19 ([facility]) Active Medications Generic Name Dose Route Start Last Admin Trade Name Freq PRN Reason Stop Dose Admin Enoxaparin Sodium 40 mg 04/30/20 10:00 05/01/20 09:34 Lovenox - SQ 40 mg DAILY DARWIN Administration Lactated Ringer's 1,000 ml in 1,000 mls @ 150 mls/hr 04/29/20 22:07 05/01/20 09:29 Lactated Ringers Solution IV 150 mls/hr ASDIR DARWIN Administration Dextrose/Lactated Ringer's 1,000 mls @ 83 mls/hr 05/01/20 11:15 D5-Lr - IV ASDIR DARWIN Levetiracetam 500 mg 04/30/20 10:00 05/01/20 09:31 Keppra Injection - IVPB 500 mg BID DARWIN Administration Lorazepam 2 mg 04/30/20 09:00 05/01/20 09:30 Ativan Injection - IVPUSH 2 mg Q8H-IV DARWIN Administration Polyethylene Glycol 17 gm 04/30/20 14:00 05/01/20 05:48 Miralax (For Daily Use) - PO 05/02/20 13:59 Not Given TID DARWIN Senna 8.8 mg 04/30/20 22:00 04/30/20 21:39 Senna Oral Solution - PO Not Given HS DARWIN ASSESSMENT/PLAN: Ms. Marques is a 54 y/o F with severe mental disability from [facility], spastic quadriplegia secondary to cerebral palsy, and chronic constipation presented to the ED for hypotension/hypoxia after oral fluid prepping for colonoscopy. #hypoxia - patient likely underwent aspiration pneumonitis - inflammation of airway secondary to gastric contents - patient continued on nasal canula - satting at 99 at 2L # hypotension on admission - likely due to hypovolemia in the setting of vaso-vagal reaction - sepsis ruled out due to afebrile and hemodynamically stable - CT scan wnl - blood cultures negative - urine cultures negative - Infectious disease on board (Dr. Martinez) appreciate the recommendations. - patient temp at 97.1 - tylenol prn for pain - Aspiration precaution - Hepatitis panel ordered # Abdominal pain/distension/guarding - constipation - GI consulted (Dr. Brooke) - possible colonoscopy in-patient - MiraLAX 17g TID for 3 days followed by twice daily - Senna liquid nightly - CT - heavy stool burden - Consider Enema #covid-19 - NEGATIVE Visit type - Emergency Visit Emergency Visit: Yes ED Registration Date: 04/29/20 Care time: The patient presented to the Emergency Department on the above date and was hospitalized for further evaluation of their emergent condition. - New Patient This patient is new to me today: No - Critical Care Critical Care patient: No - Discharge Referral Referred to [facility] No ATTENDING PHYSICIAN STATEMENT I saw and evaluated the patient. I reviewed the resident's note and discussed the case with the resident. I agree with the resident's findings and plan as documented. SUBJECTIVE: OBJECTIVE: ASSESSMENT AND PLAN:
[2020-05-01] MEDS: DEXTROSE 5%-LACTATED RINGERS 1,000 ML IV SCH (14:13)
--- NOTE | 2020-05-01 15:13 | PN ---
Teaching Attending Note Name of Resident: Pineda Sy ATTENDING PHYSICIAN STATEMENT I saw and evaluated the patient. I reviewed the resident's note and discussed the case with the resident. I agree with the resident's findings and plan as documented. SUBJECTIVE: Pt resting comfortably, aid at bedside Has some secretions in her upper airway--resisting suctioning OBJECTIVE: Vital Signs Period Temp Pulse Resp BP Sys/Ascencio Pulse Ox Last 24 Hr 96.1 F-97.0 F 75-100 18-20 111-126/66-94 98-99 GENERAL: Sleeping HEAD: Normal with no signs of trauma. EYES: Pupils equal, round and reactive to light, extraocular movements intact, sclera anicteric, conjunctiva clear. EARS, NOSE, THROAT: Ears normal, nares patent, Moist mucous membranes. NECK: Normal range of motion, No JVD, LUNGS: Breath sounds equal, clear to auscultation anteriorily, upper airway secretions noted HEART: Regular rate, rhythm ABDOMEN: soft, tender to deep palpation MUSCULOSKELETAL: Normal range of motion at all joints. No bony deformities or tenderness. No CVA tenderness. EXTREMITIES: 2+ pulses, warm, well-perfused. No calf tenderness. No peripheral edema. NEUROLOGICAL: Unable to assess PSYCHIATRIC: Unable to assess SKIN: Warm, dry, normal turgor, no rashes or lesions noted. ASSESSMENT AND PLAN: 54 y/o F w/ intellectual disability who presents with hypoxia/hypotension Hypoxia: now resolved Continue to monitor Likely aspiration pneumonitis Hypotension: Likley 2/2 vasovagal in setting of straining to pass BM Concern for Sepsis: Sepsis ruled out at this time Hold Abx monitor fever/wbc count/clinical symptoms No findings of infection in CT scan Abdominal Distention/constipation Continue PO Miralax at this time Consider Enema GI consulted for possible Porter as inpatient for chronic constipation
[2020-05-01] MEDS: SENNOSIDES 8.8 MG/5 ML BULK BOTTLE PO SCH (21:25)
[2020-05-01 22:06] LABS: HEP B CORE AB, TOT Positive (Negative)
[2020-05-02] MEDS: LORazepam 2 MG/ML SDV VIAL IVPUSH SCH ×3 (02:06→17:38)
[2020-05-02] MEDS: POLYETHYLENE GLYCOL 3350 119 GM BTL PO SCH (05:05)
[2020-05-02] MEDS: DEXTROSE 5%-LACTATED RINGERS 1,000 ML IV SCH (05:30)
[2020-05-02 08:15] LABS: HEMATOCRIT 36.2 % (32.4-45.2); HEMOGLOBIN 12.2 GM/dL (10.7-15.3); MCH 30.2 pg (25.7-33.7); MCHC 33.7 g/dl (32.0-36.0); MEAN CELL VOLUME 89.8 fl (80-96); MEAN PLT VOLUME 8.6 fl (7.5-11.1); PLATELET COUNT 135 K/MM3 (134-434); RBC 4.03 M/mm3 (3.60-5.2); RDW 14.7 % (11.6-15.6)
[2020-05-02 08:44] LABS: ALBUMIN 2.9 g/dl (3.4-5.0); BILIRUBIN,TOTAL 0.4 mg/dL (0.2-1); BLOOD UREA NITROGEN 5.5 mg/dL (7-18); CALCIUM 8.2 mg/dL (8.5-10.1); CREATININE 0.4 mg/dL (0.55-1.3); POTASSIUM 3.7 mmol/L (3.5-5.1); TOT PROT 5.9 g/dl (6.4-8.2)
--- NOTE | 2020-05-02 10:14 | CONSULT ---
Admitting History and Physical - Primary Care Physician PCP: Jose Hughes - Admission History of Present Illness: Per EMR- 54 yo F, nonverbal at baseline, from [facility] with PMH of profound mental retardation, cerebral palsy with spastic quadriplegia, epilepsy (since 1994) and chronic constipation presents to to ER for hypoxia that started earlier today. Her doctor at [facility] endorses that patient is scheduled for colonoscopy in two days to evaluate chronic constipation but when she got the oral fluid in preparation for the colonoscopy, she desaturated to 85% on room air. At [facility], she improved to 93-94% on 5L O2. Also had associated increased work of breathing and rhonchi on exam, as per LEAD GENERATION REPRESENTATIVE at [facility]. Pt's O2 saturation did not improve with Albuterol and Duonebs. Per [facility] staff, no fever, chills, vomiting, diarrhea, hematuria, hematochezia. #Sepsis (likely 2/2 aspiration pneumonia) Pt with aspiration event leading to possible aspiration pneumonitis and hypoxia at [facility]) Pt known to me from 2018 admission. Initially pt was quite weak, congested but improved. MBS on 06/30/18-Poor head control with aspiration risk if not positioned and stablized in neutral or flexed position. puree/honey thick on tsn, 1/2 tsp at a time,mouth care. NPO except for medication PMD 04/30-Concern for Sepsis: Sepsis ruled out at this time Hold Abx monitor fever/wbc count/clinical symptoms No findings of infection in CT scan Abdominal Distention/constipation Continue PO Miralax at this time Consider Enema GI consulted for possible [place] as inpatient for chronic constipation Selected Entries 05/02/20 05/02/20 05/02/20 02:00 05:35 06:00 Supper NPO Temperature 97.7 F 97.5 F L Pulse Rate 86 67 Blood Pressure 117/71 159/70 O2 Sat by Pulse 98 96 Oximetry (%) Oxygen Delivery Method 05/02/20 09:00 Supper Temperature Pulse Rate Blood Pressure O2 Sat by Pulse 96 Oximetry (%) Oxygen Delivery Nasal Cannula Method Laboratory Tests 04/30/20 05/01/20 05/02/20 06:37 07:05 07:24 WBC 11.5 H 6.4 6.0 Laboratory Tests 04/30/20 04/30/20 06:37 08:00 COVID-19 ([facility]) Not detected Hepatitis A Ab Total Positive H Hep B Core Total Ab Positive H Hepatitis Be Antibody Positive H History Source: Medical Record, Caregiver (from [facility]. Tolerates opuree w thick liquid on tsp. Pt has BM regularly, per WHITING CAN WORKER) Limitations to Obtaining History: Clinical Condition - Past Medical History WARP SPINNER: Yes: Seizure, Other (MR, cerebral palsy) Gastrointestinal: Yes: Constipation, GERD ...LMP: 04/29/20 ...: No Heme/Onc: Yes: Anemia - Smoking History Smoking history: Never smoked Have you smoked in the past 12 months: No Aproximately how many cigarettes per day: 0 - Alcohol/Substance Use Hx Alcohol Use: No - Social History ADL: Support Services History - Admission Reason For Visit: TRANSAMINASEMIA,HYPOXIA - Diagnostics Modified Barium Swallow: Report Reviewed (MBS on 06/30/18-Poor head control with aspiration risk if not positioned and stablized in netral or flexed position. puree/honey thick on tsn, 1/2 tsp at a time,mouth care.) - General Mental Status: Confused Attention: Moderate Impairment Ability to Follow Directions: Poor Head/Neck Control: Needs Assist Speech Evaluation - Communication Primary Language: TAJIK Communication: Yes: Non-Communicable - Language/Auditory Comprehension Observation: Comprehends Conversational Speech: No - Swallow Evaluation/Bedside Assessment Current Nutritional Intake: NPO Oral Secretions: Yes: WFL Jaw Position: Open at Rest (tongue thrust) Laryngeal Movement: Able to Palpate, Labored,delay initiation Rate of Intake: Slow/Holding Bolus Size: Small Labial Seal: Impaired Bilaterally (tongue thrust, seals around tongue) Oral Prep Time: Increased A-P Transit: Impaired Timing of Swallow: Delayed Coughing/Throat Clear: No Change in Voice: No Recommendations - Speech Evaluation, Impression/Plan Impression: I suspect pt aspirated on test prep at [place]. Pt needs careful intake of honey thick liquid on tsp. Overtly tolerated puree/honey thick on tsp. Miralax can not be thickened. Reviewed with PNP for substitution. - Disposition [facility]charge to: [facility] - Dysphagia Impressions/Plan Swallowing Skills: Impaired Dysphagia Impressions: Moderate Impairment *Silent aspiration: cannot be R/O at bedside Dysphagia Treatment Plan: Small Bites, Chin Tuck/Down, Safe Rate, 1/2 tsp. at a time, Elevate HOB during feed - Recommendations Diet Consistency: Dysphagia Pureed Medication Administration: Crushed with applesauce Liquids: Honey Thick (on tsp) Supplement: Magic Cup, Ensure Pudding
[2020-05-02] MEDS: ENOXAPARIN NA (PORCINE) 40 MG/0.4 ML DISP.SYRIN SQ SCH (10:25)
[2020-05-02] MEDS: levETIRAcetam 500 MG/5 ML INJECTION VIAL IVPB SCH ×2 (10:25→21:07)
--- NOTE | 2020-05-02 12:50 | PN ---
Progress Note, Physician History of Present Illness: stable with secretions - Current Medication List Current Medications: Active Medications Enoxaparin Sodium (Lovenox -) 40 mg SQ DAILY [facility] Last Admin: 05/02/20 10:25 Dose: 40 mg Documented by: Dextrose/Lactated Ringer's (D5-Lr -) 1,000 mls @ 83 mls/hr IV ASDIR [facility] Last Admin: 05/02/20 05:30 Dose: 83 mls/hr Documented by: Levetiracetam (Keppra Injection -) 500 mg IVPB BID [facility] Last Admin: 05/02/20 10:25 Dose: 500 mg Documented by: Lorazepam (Ativan Injection -) 2 mg IVPUSH Q8H-IV [facility] Last Admin: 05/02/20 10:25 Dose: 2 mg Documented by: Polyethylene Glycol (Miralax (For Daily Use) -) 17 gm PO TID [facility] Stop: 05/02/20 13:59 Last Admin: 05/02/20 05:05 Dose: Not Given Documented by: Senna (Senna Oral Solution -) 8.8 mg PO HS [facility] Last Admin: 05/01/20 21:25 Dose: Not Given Documented by: - Objective Vital Signs: Vital Signs Temperature 97.0 F L 05/02/20 10:00 Pulse Rate 87 05/02/20 10:00 Respiratory Rate 26 H 05/02/20 10:00 Blood Pressure 154/98 05/02/20 10:00 O2 Sat by Pulse Oximetry (%) 98 05/02/20 10:00 Constitutional: Yes: No Distress, Calm Cardiovascular: Yes: Tachycardia, S1, S2 Respiratory: Yes: Regular Gastrointestinal: Yes: Normal Bowel Sounds, Soft Musculoskeletal: Yes: WNL Extremities: Yes: WNL Neurological: Yes: Alert Labs: CBC, BMP 05/02/20 07:24 05/02/20 07:24 INR, PTT INR 0.90 (0.83-1.09) 04/29/20 16:00 Assessment/Plan 54 yo F, nonverbal at baseline, from [facility] with PMH of profound mental retardation, cerebral palsy with spastic quadriplegia, epilepsy (since 1994) and chronic constipation presents to to ER for hypoxia. Pt being admitted for sepsis likely 2/2 aspiration pneumonia. #Sepsis #Transaminitis #Chronic Constipation #Hypochloremia #Hx of Epilepsy ct current mgmt suctioning asp precautions rest as per the team
--- NOTE | 2020-05-02 14:24 | PN ---
Teaching Attending Note Name of Resident: Pineda Sy ATTENDING PHYSICIAN STATEMENT I saw and evaluated the patient. I reviewed the resident's note and discussed the case with the resident. I agree with the resident's findings and plan as documented. SUBJECTIVE: Patient resting comfortably OBJECTIVE: Vital Signs Period Temp Pulse Resp BP Sys/Ascencio Pulse Ox Last 24 Hr 97.0 F-97.7 F 67-104 22-35 112-159/70-98 95-98 GENERAL: Sleeping, Lying flat HEAD: Normal with no signs of trauma. EYES: Pupils equal, round and reactive to light, sclera anicteric, conjunctiva clear. EARS, NOSE, THROAT: Ears normal, nares patent, Moist mucous membranes. NECK: Normal range of motion, No JVD, LUNGS: Breath sounds equal, clear to auscultation anteriorily, upper airway secretions noted HEART: Regular rate, rhythm ABDOMEN: soft, less distented, BS+ MUSCULOSKELETAL: Normal range of motion at all joints spontaneously. EXTREMITIES: 2+ pulses, warm, well-perfused. No calf tenderness. No peripheral edema. NEUROLOGICAL: Unable to assess PSYCHIATRIC: Unable to assess SKIN: Warm, dry, normal turgor, no rashes or lesions noted. ASSESSMENT AND PLAN: 54 y/o F w/ intellectual disability who presents with hypoxia/hypotension Abdominal Distention/constipation Patient passing Bm at this time Per ELECTRONIC ENGRAVER, Miralax is unable to be thickened. If Gi would like to do the EGD/[place], patient will likely need NG tube placement for bowel prep administration Will defer to Gi if they would like to proceed with this procedure as an inpatient Can use lactulose for constipation as needed at this time Consider Enema as indicated Hypoxia: now resolved Likely in setting of bowel prep aspiration as patient is unable to tolerate thin liquids Continue to monitor Of note, patient was placed on O2 by staff rn overnight for tachypnea. Patient was noted to not have any desaturation episodes. Per Aid at bedside, patient often is tachypnic at her assisted. Hypotension: Resolved Likely 2/2 vasovagal in setting of straining to pass BM Concern for Sepsis: Sepsis ruled out at this time Hold Abx monitor fever/wbc count/clinical symptoms No findings of infection in CT scan Hep B Core Ab+ Patient appears to have had Hep B and cleared it in the past If patient is to have Colonoscopy as inpatient, will pursue placing NG tube today, otherwise, patient is medically stable for discharge.
--- NOTE | 2020-05-02 15:13 | PN ---
Physical Exam: SUBJECTIVE: Patient seen and examined at bedside. Patient is accompanied by aid. Ms. Marques appears much more receptive and was able to respond to commands. Patient is reported to have one small bowel movement in the morning. OBJECTIVE: Vital Signs Period Temp Pulse Resp BP Sys/Ascencio Pulse Ox Last 24 Hr 97.0 F-97.7 F 67-104 22-35 112-159/70-98 95-98 GENERAL: The patient is awake, alert, and fully oriented, in no acute distress. LUNGS: Breath sounds equal, good effort HEART: Regular rate and rhythm, S1, S2 without murmur, rub or gallop. ABDOMEN: Soft, nontender, nondistended, normoactive bowel sounds, no guarding, no rebound, no hepatosplenomegaly, no masses. EXTREMITIES: 2+ pulses, warm, well-perfused, no edema. Laboratory Results - last 24 hr 04/30/20 05/01/20 05/02/20 06:37 21:16 02:12 WBC RBC Hgb Hct MCV MCH MCHC RDW Plt Count MPV Sodium Potassium Chloride Carbon Dioxide Anion Gap BUN Creatinine Est GFR (CKD-EPI)AfAm Est GFR (CKD-EPI)NonAf POC Glucometer 94 90 Random Glucose Calcium Total Bilirubin AST ALT Alkaline Phosphatase Total Protein Albumin Hep A IgM Ab Confirm Negative Hepatitis A Ab Total Positive H Hep Bs Antigen Negative Hep Bs Antibody Reactive Hep B Core Total Ab Positive H Hep B Core IgM Ab Negative Hepatitis Be Antibody Positive H Hepatitis Be Antigen Negative 05/02/20 05/02/20 05/02/20 07:24 07:24 14:33 WBC 6.0 RBC 4.03 Hgb 12.2 Hct 36.2 MCV 89.8 MCH 30.2 MCHC 33.7 RDW 14.7 Plt Count 135 MPV 8.6 Sodium 143 Potassium 3.7 Chloride 107 Carbon Dioxide 29 Anion Gap 7 L BUN 5.5 L Creatinine 0.4 L Est GFR (CKD-EPI)AfAm 137.82 Est GFR (CKD-EPI)NonAf 118.91 POC Glucometer 103 Random Glucose 90 Calcium 8.2 L Total Bilirubin 0.4 AST 34 ALT 74 H Alkaline Phosphatase 142 H Total Protein 5.9 L Albumin 2.9 L Hep A IgM Ab Confirm Hepatitis A Ab Total Hep Bs Antigen Hep Bs Antibody Hep B Core Total Ab Hep B Core IgM Ab Hepatitis Be Antibody Hepatitis Be Antigen Active Medications Generic Name Dose Route Start Last Admin Trade Name Freq PRN Reason Stop Dose Admin Enoxaparin Sodium 40 mg 04/30/20 10:00 05/02/20 10:25 Lovenox - SQ 40 mg DAILY [facility] Administration Dextrose/Lactated Ringer's 1,000 mls @ 83 mls/hr 05/01/20 11:15 05/02/20 05:30 D5-Lr - IV 83 mls/hr ASDIR [facility] Administration Levetiracetam 500 mg 04/30/20 10:00 05/02/20 10:25 Keppra Injection - IVPB 500 mg BID [facility] Administration Lorazepam 2 mg 04/30/20 09:00 05/02/20 10:25 Ativan Injection - IVPUSH 2 mg Q8H-IV [facility] Administration Senna 8.8 mg 04/30/20 22:00 05/01/20 21:25 Senna Oral Solution - PO Not Given HS [facility] ASSESSMENT/PLAN: Ms. Marques is a 54 y/o F with severe mental disability from [facility], spastic quadriplegia secondary to cerebral palsy, and chronic constipation presented to the ED for hypotension/hypoxia after oral fluid prepping for colonoscopy. #hypoxia - patient likely underwent aspiration pneumonitis - inflammation of airway secondary to gastric contents - patient continued on nasal canula - satting at 99 at 2L - Weening off oxygen -1L will recheck o2 sat # hypotension on admission - likely due to hypovolemia in the setting of vaso-vagal reaction - sepsis ruled out due to afebrile and hemodynamically stable - CT scan wnl - blood cultures negative - urine cultures negative - tylenol prn for pain - Aspiration precaution # Abdominal pain/distension/guarding - patient able to pass stool - patient able to be spoon fed thickened liquid - GI consulted (Dr. Brooke) - colonoscopy outpatient - lactulose #Transaminitis - Hepatitis panel - positive for HEP A and B AB #covid-19 - NEGATIVE #DVT ppx - sq lovenox Visit type - Emergency Visit Emergency Visit: Yes ED Registration Date: 04/29/20 Care time: The patient presented to the Emergency Department on the above date and was hospitalized for further evaluation of their emergent condition. - New Patient This patient is new to me today: No - Critical Care Critical Care patient: No - Discharge Referral Referred to [facility] Med P.C.: No ATTENDING PHYSICIAN STATEMENT I saw and evaluated the patient. I reviewed the resident's note and discussed the case with the resident. I agree with the resident's findings and plan as documented. SUBJECTIVE: OBJECTIVE: ASSESSMENT AND PLAN:
[2020-05-02] MEDS ORDERED: PT OWN MED DRAWER 7, Y5N ONE (20:58)
[2020-05-02] MEDS: SENNOSIDES 8.8 MG/5 ML BULK BOTTLE PO SCH (21:07)
[2020-05-03] MEDS: LORazepam 2 MG/ML SDV VIAL IVPUSH SCH ×3 (01:54→18:01)
[2020-05-03 08:14] LABS: HEMATOCRIT 36.4 % (32.4-45.2); HEMOGLOBIN 12.3 GM/dL (10.7-15.3); MCH 30.4 pg (25.7-33.7); MCHC 33.8 g/dl (32.0-36.0); MEAN CELL VOLUME 89.9 fl (80-96); MEAN PLT VOLUME 8.7 fl (7.5-11.1); PLATELET COUNT 134 K/MM3 (134-434); RBC 4.05 M/mm3 (3.60-5.2); RDW 14.6 % (11.6-15.6); WHITE BLOOD COUNT 6.7 K/mm3 (4.0-10.0)
[2020-05-03 08:30] LABS: CALCIUM 8.4 mg/dL (8.5-10.1); CREATININE 0.4 mg/dL (0.55-1.3); POTASSIUM 3.5 mmol/L (3.5-5.1)
[2020-05-03 08:35] LABS: BLOOD UREA NITROGEN 3.8 mg/dL (7-18)
[2020-05-03] MEDS: ENOXAPARIN NA (PORCINE) 40 MG/0.4 ML DISP.SYRIN SQ SCH (09:14)
[2020-05-03] MEDS: levETIRAcetam 500 MG/5 ML INJECTION VIAL IVPB SCH ×2 (09:14→21:51)
[2020-05-03] MEDS: DEXTROSE 5%-LACTATED RINGERS 1,000 ML IV SCH ×2 (09:26→21:51)
--- NOTE | 2020-05-03 10:35 | PN ---
Progress Note, INTEGRITY MANAGER - Note Progress Note: Selected Entries 05/02/20 05/02/20 05/02/20 02:00 05:35 06:00 Supper NPO Temperature 97.7 F 97.5 F L Pulse Rate 86 67 Blood Pressure 117/71 159/70 05/02/20 05/02/20 05/02/20 10:00 14:00 18:00 Supper Temperature 97.0 F L 98 F 98.4 F Pulse Rate 87 102 H 100 H Blood Pressure 154/98 129/82 129/89 05/02/20 05/02/20 05/03/20 18:51 20:36 02:00 Supper NPO Temperature 99.3 F 98.7 F Pulse Rate 84 95 H Blood Pressure 106/59 L 143/83 05/03/20 05/03/20 05/03/20 06:00 08:43 10:19 Supper Temperature 98.8 F 99.7 F H 100.1 F H Pulse Rate 110 H 115 H 121 H Blood Pressure 139/86 121/72 Laboratory Tests 05/03/20 07:03 WBC 6.7 Pureed diet ordered. Please add HONEY THICK LIQUID ON TSP Reviewed with nursing and RD
--- NOTE | 2020-05-03 12:58 | PN ---
Progress Note, Physician History of Present Illness: stable with salivary secretions had some diet spiked a low grade fever - Current Medication List Current Medications: Active Medications Enoxaparin Sodium (Lovenox -) 40 mg SQ DAILY [facility] Last Admin: 05/03/20 09:14 Dose: 40 mg Documented by: Dextrose/Lactated Ringer's (D5-Lr -) 1,000 mls @ 83 mls/hr IV ASDIR [facility] Last Admin: 05/03/20 09:26 Dose: 83 mls/hr Documented by: Levetiracetam (Keppra Injection -) 500 mg IVPB BID [facility] Last Admin: 05/03/20 09:14 Dose: 500 mg Documented by: Lorazepam (Ativan Injection -) 2 mg IVPUSH Q8H-IV [facility] Last Admin: 05/03/20 09:14 Dose: 2 mg Documented by: Senna (Senna Oral Solution -) 8.8 mg PO HS [facility] Last Admin: 05/02/20 21:07 Dose: 5 ml Documented by: - Objective Vital Signs: Vital Signs Temperature 100.1 F H 05/03/20 10:19 Pulse Rate 121 H 05/03/20 10:19 Respiratory Rate 34 H 05/03/20 10:19 Blood Pressure 121/72 05/03/20 08:43 O2 Sat by Pulse Oximetry (%) 93 L 05/03/20 10:19 Constitutional: Yes: No Distress, Calm Cardiovascular: Yes: S1, S2 Respiratory: Yes: Regular, CTA Bilaterally Gastrointestinal: Yes: Normal Bowel Sounds, Soft Musculoskeletal: Yes: WNL Extremities: Yes: WNL Neurological: Yes: Alert Labs: CBC, BMP 05/03/20 07:03 05/03/20 07:03 INR, PTT INR 0.90 (0.83-1.09) 04/29/20 16:00 Assessment/Plan 54 yo F, nonverbal at baseline, from [facility] with PMH of profound mental retardation, cerebral palsy with spastic quadriplegia, epilepsy (since 1994) and chronic constipation presents to to ER for hypoxia. Pt being admitted for sepsis likely 2/2 aspiration pneumonia. #Sepsis #Transaminitis #Chronic Constipation #Hypochloremia #Hx of Epilepsy ct current mgmt suctioning asp precautions rest as per the team monitor for any further fevers
--- NOTE | 2020-05-03 14:47 | PN ---
Teaching Attending Note Name of Resident: Pineda Sy ATTENDING PHYSICIAN STATEMENT I saw and evaluated the patient. I reviewed the resident's note and discussed the case with the resident. I agree with the resident's findings and plan as documented. SUBJECTIVE: Resting comfortably in bed OBJECTIVE: Vital Signs Period Temp Pulse Resp BP Sys/Ascencio Pulse Ox Last 24 Hr 98.4 F-100.1 F 84-121 22-34 106-143/59-89 93-98 GENERAL: Sleeping, Lying flat HEAD: Normal with no signs of trauma. EYES: Pupils equal, round and reactive to light, sclera anicteric, conjunctiva clear. EARS, NOSE, THROAT: Ears normal, nares patent, Moist mucous membranes. NECK: Normal range of motion, No JVD, LUNGS: Breath sounds equal, clear to auscultation anteriorily, upper airway secretions noted/auscultated HEART: Regular rate, rhythm ABDOMEN: soft, less distented, BS+ MUSCULOSKELETAL: Normal range of motion at all joints spontaneously. EXTREMITIES: 2+ pulses, warm, well-perfused. No calf tenderness. No peripheral edema. LUE blisters noted NEUROLOGICAL: Unable to assess PSYCHIATRIC: Unable to assess SKIN: Warm, dry, normal turgor, no rashes or lesions noted. ASSESSMENT AND PLAN: 54 y/o F w/ intellectual disability who presents with hypoxia/hypotension Abdominal Distention/constipation Patient passing Bm at this time Per STRIKE OUT MACHINE OPERATOR, Miralax is unable to be thickened. GI does not want to do EGD/[place] as an inpatient; will advise that patient will need NG tube for bowel prep if these procedures want to be pursued in the future. Can use lactulose for constipation as needed at this time LUE blister: unclear etiology, continue to monitor Tachypnea/Hypoxia: In setting of Aspiration Pneumonitis Continue to hold Abx at this time Encourage good suctioning HOB 30Degrees; do not let patient lie completely flat Upright placement when eating Hypotension: Resolved Likely 2/2 vasovagal in setting of straining to pass BM Low grade temps: Low threshold to start Abx No source identified on imaging/blood work at this time Continue to monitor Give tylenol if patient truly has documented fever Hep B Core Ab+ Patient appears to have had Hep B and cleared it in the past If patient is to have Colonoscopy as inpatient, will pursue placing NG tube today, otherwise, patient is medically stable for discharge.
--- NOTE | 2020-05-03 18:35 | PN ---
Physical Exam: SUBJECTIVE: Patient seen and examined at bedside. Patient sitting up eating yogurt. Tried weening her of o2 and patient became tachypnic at 34. Patient placed back on O2 and will be given ativan OBJECTIVE: Vital Signs Period Temp Pulse Resp BP Sys/Ascencio Pulse Ox Last 24 Hr 98.7 F-101.5 F 78-136 22-46 106-143/56-86 90-98 GENERAL: The patient is awake, in no acute distress. LUNGS: Breath sounds equal, clear to auscultation bilaterally, no wheezes, no crackles, no accessory muscle use. HEART: Regular rate and rhythm, S1, S2 without murmur, rub or gallop. ABDOMEN: Soft, nontender, nondistended, normoactive bowel sounds, no guarding, no rebound, no hepatosplenomegaly, no masses. EXTREMITIES: 2+ pulses, warm, well-perfused, no edema. Laboratory Results - last 24 hr 05/02/20 05/03/20 05/03/20 20:47 02:43 07:03 WBC 6.7 RBC 4.05 Hgb 12.3 Hct 36.4 MCV 89.9 MCH 30.4 MCHC 33.8 RDW 14.6 Plt Count 134 MPV 8.7 Sodium Potassium Chloride Carbon Dioxide Anion Gap BUN Creatinine Est GFR (CKD-EPI)AfAm Est GFR (CKD-EPI)NonAf POC Glucometer 102 74 Random Glucose Calcium 05/03/20 07:03 WBC RBC Hgb Hct MCV MCH MCHC RDW Plt Count MPV Sodium 140 Potassium 3.5 Chloride 106 Carbon Dioxide 28 Anion Gap 6 L BUN 3.8 L Creatinine 0.4 L Est GFR (CKD-EPI)AfAm 137.82 Est GFR (CKD-EPI)NonAf 118.91 POC Glucometer Random Glucose 71 L Calcium 8.4 L Active Medications Generic Name Dose Route Start Last Admin Trade Name Freq PRN Reason Stop Dose Admin Enoxaparin Sodium 40 mg 04/30/20 10:00 05/03/20 09:14 Lovenox - SQ 40 mg DAILY [facility] Administration Dextrose/Lactated Ringer's 1,000 mls @ 83 mls/hr 05/01/20 11:15 05/03/20 09:26 D5-Lr - IV 83 mls/hr ASDIR [facility] Administration Levetiracetam 500 mg 04/30/20 10:00 05/03/20 09:14 Keppra Injection - IVPB 500 mg BID [facility] Administration Lorazepam 2 mg 04/30/20 09:00 05/03/20 18:01 Ativan Injection - IVPUSH 2 mg Q8H-IV [facility] Administration Senna 8.8 mg 04/30/20 22:00 05/02/20 21:07 Senna Oral Solution - PO 5 ml HS [facility] Administration ASSESSMENT/PLAN: Ms. Marques is a 54 y/o F with severe mental disability from [facility], spastic quadriplegia secondary to cerebral palsy, and chronic constipation presented to the ED for hypotension/hypoxia after oral fluid prepping for colonoscopy. # Abdominal pain/distension/guarding - patient able to pass stool - patient able to be spoon fed thickened liquid - GI consulted (Dr. Brooke) - colonoscopy outpatient - lactulose as needed # LUE blister: - unclear etiology - ice packs - monitor - erythematous will give pain meds as needed # hypotension on admission - likely due to hypovolemia in the setting of vaso-vagal reaction - patient constipated on admission - straining leading to vasovagal reaction #hypoxia - patient likely underwent aspiration pneumonitis - inflammation of airway secondary to gastric contents - patient continued on nasal canula #Transaminitis - Hepatitis panel - positive for HEP A and B AB #covid-19 - NEGATIVE #DVT ppx - sq lovenox Visit type - Emergency Visit Emergency Visit: Yes ED Registration Date: 04/29/20 Care time: The patient presented to the Emergency Department on the above date and was hospitalized for further evaluation of their emergent condition. - New Patient This patient is new to me today: No - Critical Care Critical Care patient: No - Discharge Referral Referred to [facility] Med P.C.: No ATTENDING PHYSICIAN STATEMENT I saw and evaluated the patient. I reviewed the resident's note and discussed the case with the resident. I agree with the resident's findings and plan as documented. SUBJECTIVE: OBJECTIVE: ASSESSMENT AND PLAN:
[2020-05-03] MEDS ORDERED: PT OWN MED DRAWER 7, Y5N ONE (21:42)
[2020-05-03] MEDS: SENNOSIDES 8.8 MG/5 ML BULK BOTTLE PO SCH (21:51)
[2020-05-04] MEDS: LORazepam 2 MG/ML SDV VIAL IVPUSH SCH ×3 (02:42→17:30)
[2020-05-04 08:31] LABS: BASO % 0.4 % (0-2.0); EOS % 0.7 % (0-4.5); HEMATOCRIT 38.5 % (32.4-45.2); HEMOGLOBIN 12.9 GM/dL (10.7-15.3); LYMPH % 21.9 % (8-40); MCHC 33.4 g/dl (32.0-36.0); MEAN CELL VOLUME 90.1 fl (80-96); MEAN PLT VOLUME 8.6 fl (7.5-11.1); MONO % 8.5 % (3.8-10.2); NEUT % 68.5 % (42.8-82.8); PLATELET COUNT 158 K/MM3 (134-434); RBC 4.28 M/mm3 (3.60-5.2); RDW 14.5 % (11.6-15.6); WHITE BLOOD COUNT 7.6 K/mm3 (4.0-10.0)
[2020-05-04] MEDS: levETIRAcetam 500 MG/5 ML INJECTION VIAL IVPB SCH (10:04)
[2020-05-04] MEDS: ENOXAPARIN NA (PORCINE) 40 MG/0.4 ML DISP.SYRIN SQ SCH (10:06)
[2020-05-04] MEDS ORDERED: IBUPROFEN 600 MG TABLET (FP) PO ONE (12:19)
[2020-05-04] MEDS: DEXTROSE 5%-LACTATED RINGERS 1,000 ML IV SCH ×2 (12:20→17:11)
[2020-05-04] MEDS ORDERED: levETIRAcetam 500 MG TABLET (FP) PO ONE (13:19)
--- NOTE | 2020-05-04 13:21 | PN ---
Progress Note, Physician History of Present Illness: stable with salivary secretions had some diet - Current Medication List Current Medications: Active Medications Enoxaparin Sodium (Lovenox -) 40 mg SQ DAILY [facility] Last Admin: 05/04/20 10:06 Dose: 40 mg Documented by: Dextrose/Lactated Ringer's (D5-Lr -) 1,000 mls @ 83 mls/hr IV ASDIR [facility] Last Admin: 05/04/20 12:20 Dose: Not Given Documented by: Levetiracetam (Keppra -) 500 mg PO BID [facility] Levetiracetam (Keppra -) 500 mg PO ONCE ONE Stop: 05/04/20 13:20 Lorazepam (Ativan Injection -) 2 mg IVPUSH Q8H-IV [facility] Last Admin: 05/04/20 10:04 Dose: Not Given Documented by: Senna (Senna Oral Solution -) 8.8 mg PO HS [facility] Last Admin: 05/03/20 21:51 Dose: 5 ml Documented by: - Objective Vital Signs: Vital Signs Temperature 99.9 F H 05/04/20 10:00 Pulse Rate 120 H 05/04/20 10:00 Respiratory Rate 24 H 05/04/20 10:00 Blood Pressure 140/59 L 05/04/20 10:00 O2 Sat by Pulse Oximetry (%) 95 05/04/20 10:00 Constitutional: Yes: No Distress, Calm Cardiovascular: Yes: S1, S2 Respiratory: Yes: Regular, CTA Bilaterally Gastrointestinal: Yes: Normal Bowel Sounds, Soft Musculoskeletal: Yes: WNL Extremities: Yes: Other (contracted) Neurological: Yes: Alert, Other Psychiatric: Yes: Other Labs: CBC, BMP 05/04/20 06:45 05/03/20 07:03 INR, PTT INR 0.90 (0.83-1.09) 04/29/20 16:00 Assessment/Plan 54 yo F, nonverbal at baseline, from [facility] with PMH of profound mental retardation, cerebral palsy with spastic quadriplegia, epilepsy (since 1994) and chronic constipation presents to to ER for hypoxia. Pt being admitted for sepsis likely 2/2 aspiration pneumonia. #Sepsis #Transaminitis #Chronic Constipation #Hypochloremia #Hx of Epilepsy ct current mgmt suctioning asp precautions rest as per the team monitor for any further fevers
--- NOTE | 2020-05-04 16:21 | PN ---
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 - Current Medication List Current Medications: Active Medications Enoxaparin Sodium (Lovenox -) 40 mg SQ DAILY [facility] Last Admin: 05/04/20 10:06 Dose: 40 mg Documented by: Dextrose/Lactated Ringer's (D5-Lr -) 1,000 mls @ 83 mls/hr IV ASDIR [facility] Last Admin: 05/04/20 12:20 Dose: Not Given Documented by: Levetiracetam (Keppra Oral Solution -) 500 mg PO BID [facility] Lorazepam (Ativan Injection -) 2 mg IVPUSH Q8H-IV [facility] Last Admin: 05/04/20 10:04 Dose: Not Given Documented by: Senna (Senna Oral Solution -) 8.8 mg PO HS [facility] Last Admin: 05/03/20 21:51 Dose: 5 ml Documented by: - Objective Vital Signs: Vital Signs Temperature 100.3 F H 05/04/20 15:12 Pulse Rate 117 H 05/04/20 15:12 Respiratory Rate 28 H 05/04/20 15:12 Blood Pressure 139/79 05/04/20 15:12 O2 Sat by Pulse Oximetry (%) 97 05/04/20 15:12 Constitutional: Yes: No Distress, Calm, Other (Chronically ill) Eyes: Yes: WNL, Conjunctiva Clear, EOM Intact HENT: Yes: WNL, Atraumatic, Normocephalic Neck: Yes: WNL, Supple, Trachea Midline Cardiovascular: Yes: WNL, Regular Rate and Rhythm Respiratory: Yes: WNL, Regular, CTA Bilaterally Gastrointestinal: Yes: WNL, Normal Bowel Sounds, Soft Musculoskeletal: Yes: WNL Extremities: Yes: WNL Edema: No Peripheral Pulses WNL: Yes Peripheral Pulses: Left Doralis Pedis: 2+, Right Dorsalis Pedis: 2+ Integumentary: Yes: WNL Neurological: Yes: Aphasia Labs: CBC, BMP 05/04/20 06:45 05/03/20 07:03 INR, PTT INR 0.90 (0.83-1.09) 04/29/20 16:00 Impression/Plan Impression/Plan: Ms. 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 # Abdominal pain/distension/guarding - patient able to pass stool - patient able to be spoon fed thickened liquid - CT Chest 04/29 Compared to imaging 07/2019 there is interval increase in diffuse colonic fecal retention - GI consulted (Dr. Brooke) - colonoscopy outpatient - lactulose as needed # Fever - send blood culture x 2, UA, check chest xray - Restart IV fluids # LUE blister: - unclear etiology - ice packs - monitor - erythematous will give pain meds as needed # Hypotension on admission - Likely due to hypovolemia in the setting of vaso-vagal reaction - patient constipated on admission - straining leading to vasovagal reaction #Hypoxia - patient likely underwent aspiration pneumonitis - inflammation of airway secondary to gastric contents - patient continued on nasal canula - CT chest 04/29 negative for infiltrate or effusion #Transaminitis - Hepatitis panel - positive for HEP A and B AB Visit type - Emergency Visit Emergency Visit: Yes ED Registration Date: 04/29/20 Care time: The patient presented to the Emergency Department on the above date and was hospitalized for further evaluation of their emergent condition. - New Patient This patient is new to me today: Yes Date on this admission: 05/04/20 - Critical Care Critical Care patient: No - Discharge Referral Referred to [facility] Med P.C.: No
[2020-05-04] MEDS ORDERED: SODIUM CHLORIDE 1,000 ML IV SCH (16:30)
[2020-05-04] MEDS: SENNOSIDES 8.8 MG/5 ML BULK BOTTLE PO SCH (22:31)
[2020-05-04] MEDS: levETIRAcetam 500 MG/5 ML ORAL SOLUTION (UNIT-DOSE CUPS) PO SCH (22:31)
[2020-05-04 23:51] LABS: PH,URINE 7.5 (5.0-8.0); URINE APPEARANCE CLEAR; URINE BILIRUBIN NEGATIVE (NEGATIVE); URINE COLOR YELLOW; URINE GLUCOSE (UA) NEGATIVE (NEGATIVE); URINE KETONE NEGATIVE (NEGATIVE); URINE LEUK ESTERASE NEGATIVE (NEGATIVE); URINE NITRITE NEGATIVE (NEGATIVE); URINE PROTEIN NEGATIVE (NEGATIVE); URINE UROBILINOGEN 0.2 mg/dL (0.2-1.0)
[2020-05-05] MEDS: LORazepam 2 MG/ML SDV VIAL IVPUSH SCH ×2 (02:30→11:51)
[2020-05-05] MEDS: DEXTROSE 5%-LACTATED RINGERS 1,000 ML IV SCH ×3 (04:43→18:50)
[2020-05-05 07:59] LABS: BASO % 0.2 % (0-2.0); EOS % 2.2 % (0-4.5); HEMATOCRIT 33.6 % (32.4-45.2); HEMOGLOBIN 11.3 GM/dL (10.7-15.3); LYMPH % 18.4 % (8-40); MCH 30.1 pg (25.7-33.7); MCHC 33.5 g/dl (32.0-36.0); MEAN CELL VOLUME 89.9 fl (80-96); MEAN PLT VOLUME 7.8 fl (7.5-11.1); MONO % 10.1 % (3.8-10.2); NEUT % 69.1 % (42.8-82.8); PLATELET COUNT 159 K/MM3 (134-434); RBC 3.74 M/mm3 (3.60-5.2); RDW 14.7 % (11.6-15.6); WHITE BLOOD COUNT 7.4 K/mm3 (4.0-10.0)
[2020-05-05 08:31] LABS: BLOOD UREA NITROGEN 6.6 mg/dL (7-18); CALCIUM 8.1 mg/dL (8.5-10.1); CREATININE 0.4 mg/dL (0.55-1.3); POTASSIUM 3.6 mmol/L (3.5-5.1)
--- NOTE | 2020-05-05 10:27 | PN ---
Physical Exam: SUBJECTIVE: Patient seen and examined at bedside. Smiling, in no apparent distress. No acute overnight events noted. OBJECTIVE: Vital Signs Period Temp Pulse Resp BP Sys/Ascencio Pulse Ox Last 24 Hr 98.2 F-100.3 F 81-117 20-31 110-139/68-82 97-100 GENERAL: The patient is awake, alert, in no acute distress. HEAD: Normocephalic, atraumatic. EYES: PERRL, extraocular movements intact, conjunctiva clear. ENT: Moist mucous membranes. NECK: Supple without lymphadenopathy. LUNGS: Breath sounds equal, clear to auscultation bilaterally. No wheezes, no crackles. No accessory muscle use. HEART: Regular rate and rhythm. S1, S2 without murmur, rub or gallop. ABDOMEN: Soft, nondistended, nontender to light and deep palpation. No rebound tenderness, no guarding. Normoactive bowel sounds x4 quadrants. EXTREMITIES: Contracted. Warm, well perfused. NEUROLOGICAL: unable to assess given patient's clinical condition. SKIN: Left hand numerous 1cm clear blisters. Laboratory Results - last 24 hr 05/04/20 05/04/20 05/04/20 11:08 17:11 23:40 WBC RBC Hgb Hct MCV MCH MCHC RDW Plt Count MPV Absolute Neuts (auto) Neutrophils % Lymphocytes % Monocytes % Eosinophils % Basophils % Nucleated RBC % Sodium Potassium Chloride Carbon Dioxide Anion Gap BUN Creatinine Est GFR (CKD-EPI)AfAm Est GFR (CKD-EPI)NonAf POC Glucometer 90 98 Random Glucose Calcium Urine Color Yellow Urine Appearance Clear Urine pH 7.5 Ur Specific [place] 1.009 L Urine Protein Negative Urine Glucose (UA) Negative Urine Ketones Negative Urine Blood Negative Urine Nitrite Negative Urine Bilirubin Negative Urine Urobilinogen 0.2 Ur Leukocyte Esterase Negative 05/05/20 05/05/20 05/05/20 07:14 07:15 07:15 WBC 7.4 RBC 3.74 Hgb 11.3 Hct 33.6 MCV 89.9 MCH 30.1 MCHC 33.5 RDW 14.7 Plt Count 159 MPV 7.8 Absolute Neuts (auto) 5.1 Neutrophils % 69.1 Lymphocytes % 18.4 Monocytes % 10.1 Eosinophils % 2.2 D Basophils % 0.2 Nucleated RBC % 0 Sodium 142 Potassium 3.6 Chloride 104 Carbon Dioxide 34 H Anion Gap 4 L BUN 6.6 L Creatinine 0.4 L Est GFR (CKD-EPI)AfAm 137.82 Est GFR (CKD-EPI)NonAf 118.91 POC Glucometer 98 Random Glucose 92 Calcium 8.1 L Urine Color Urine Appearance Urine pH Ur Specific [place] Urine Protein Urine Glucose (UA) Urine Ketones Urine Blood Urine Nitrite Urine Bilirubin Urine Urobilinogen Ur Leukocyte Esterase Active Medications Generic Name Dose Route Start Last Admin Trade Name Zhouq PRN Reason Stop Dose Admin Enoxaparin Sodium 40 mg 04/30/20 10:00 05/04/20 10:06 Lovenox - SQ 40 mg DAILY [facility] Administration Dextrose/Lactated Ringer's 1,000 mls @ 83 mls/hr 05/01/20 11:15 05/05/20 04:43 D5-Lr - IV 83 mls/hr ASDIR [facility] Administration Levetiracetam 500 mg 05/04/20 22:00 05/04/20 22:31 Keppra Oral Solution - PO 500 mg BID [facility] Administration Lorazepam 2 mg 04/30/20 09:00 05/05/20 02:30 Ativan Injection - IVPUSH 2 mg Q8H-IV [facility] Administration Senna 8.8 mg 04/30/20 22:00 05/04/20 22:31 Senna Oral Solution - PO 8.8 ml HS [facility] Administration ASSESSMENT/PLAN: Patient is a 54 year old female with history of cerebral palsy, functional quadriplegia, chronic constipation presented with hypoxia, and hypotension Aspiration pneumonitis -Likely source of hypoxia. Resolved. Patient saturating well on room air, without accessory muscle use. -Aspiration precautions. Elevate head of bed 30 degrees- especially when eating. -Speech pathology recommendations appreciated. -Frequent suctioning Low grade temperatures -T.max 100.0F overnight. Has remained afebrile today. -Chest radiograph reveals new left sided ?changes. -Low threshold to initiate antibiotics. -Follow blood cultures, urine cultures. Constipation -Passed large bowel movement yesterday. Negative blood or melena reported. -Continue Senna, Lactulose if needed. -GI recommendations appreciated. For colonoscopy as outpatient. -Hypotension upon initial presentation may be secondary to vasovagal etiology due to straining. Further, possibility of autonomic dysfunction. Has remained hemodynamically stable. Monitor vital signs closely. Transaminitis -improving -Hepatitis B antibodies noted. Patient has been exposed to virus, given Core antibody positive. -Follow transaminases -GI recommendations appreciated. Left hand blisters -Nursing staff endorses that patient had IV placed in that area few days prior to onset of blisters. Concern for IV infiltration. -Discussed with Dr. Martinez- will initiate Doxycycline 100mg IV BID History of seizures -Reinstated oral Diazepam, Keppra as patient is now tolerating diet. -Seizure precautions FEN -D5 Lactated Ringer's at 83mL/ hour -Follow BMP -Puree diet Prophylaxis -Lovenox 40mg subq daily -Pantoprazole 20mg PO daily Disposition -Continue care in medical - surgical floor Visit type - Emergency Visit Emergency Visit: Yes ED Registration Date: 04/29/20 Care time: The patient presented to the Emergency Department on the above date and was hospitalized for further evaluation of their emergent condition. - New Patient This patient is new to me today: Yes Date on this admission: 05/05/20 - Critical Care Critical Care patient: No - Discharge Referral Referred to [facility] Med P.C.: No ATTENDING PHYSICIAN STATEMENT I saw and evaluated the patient. I reviewed the resident's note and discussed the case with the resident. I agree with the resident's findings and plan as documented. SUBJECTIVE: OBJECTIVE: ASSESSMENT AND PLAN:
[2020-05-05] MEDS ORDERED: SODIUM CHLORIDE 500 ML IV STA (10:46)
[2020-05-05] MEDS: levETIRAcetam 500 MG/5 ML ORAL SOLUTION (UNIT-DOSE CUPS) PO SCH ×2 (11:22→22:03)
[2020-05-05] MEDS: ENOXAPARIN NA (PORCINE) 40 MG/0.4 ML DISP.SYRIN SQ SCH (11:23)
--- NOTE | 2020-05-05 12:43 | PN ---
Progress Note, Physician History of Present Illness: stable has developed blisters on the hand probably due to infiltration of iv fluids - Current Medication List Current Medications: Active Medications Enoxaparin Sodium (Lovenox -) 40 mg SQ DAILY [facility] Last Admin: 05/05/20 11:23 Dose: 40 mg Documented by: Dextrose/Lactated Ringer's (D5-Lr -) 1,000 mls @ 83 mls/hr IV ASDIR [facility] Last Admin: 05/05/20 11:51 Dose: Not Given Documented by: Levetiracetam (Keppra Oral Solution -) 500 mg PO BID [facility] Last Admin: 05/05/20 11:22 Dose: 500 mg Documented by: Lorazepam (Ativan Injection -) 2 mg IVPUSH Q8H-IV [facility] Last Admin: 05/05/20 11:51 Dose: 2 mg Documented by: Senna (Senna Oral Solution -) 8.8 mg PO HS [facility] Last Admin: 05/04/20 22:31 Dose: 8.8 ml Documented by: - Objective Vital Signs: Vital Signs Temperature 99.2 F 05/05/20 10:44 Pulse Rate 85 05/05/20 11:42 Respiratory Rate 23 H 05/05/20 11:42 Blood Pressure 110/76 05/05/20 11:42 O2 Sat by Pulse Oximetry (%) 96 05/05/20 10:44 Constitutional: Yes: No Distress, Calm Cardiovascular: Yes: S1, S2 Respiratory: Yes: Regular, CTA Bilaterally Gastrointestinal: Yes: Normal Bowel Sounds, Soft Extremities: Yes: Other (contracted) Edema: LUE: 1+ Integumentary: Yes: Other (blisters) Wound/Incision: Yes: Other Neurological: Yes: Alert Labs: CBC, BMP 05/05/20 07:15 05/05/20 07:15 INR, PTT INR 0.90 (0.83-1.09) 04/29/20 16:00 Assessment/Plan 54 yo F, nonverbal at baseline, from [facility] with PMH of profound mental retardation, cerebral palsy with spastic quadriplegia, epilepsy (since 1994) and chronic constipation presents to to ER for hypoxia. Pt being admitted for sepsis likely 2/2 aspiration pneumonia. #Sepsis #Transaminitis #Chronic Constipation #Hypochloremia #Hx of Epilepsy ct current mgmt suctioning asp precautions rest as per the team monitor for any further fevers
[2020-05-05] MEDS: DOXYCYCLINE INJECTION 100 MG in DEXTROSE 5%-WATER - 100 ML IVPB SCH ×2 (16:26→21:59)
[2020-05-05] MEDS ORDERED: PT OWN MED DRAWER 7, Y5N ONE (16:56)
[2020-05-05] MEDS ORDERED: MAG HYDROX/AL HYDROX/SIMETH 30 ML UNIT-DOSE CUP PO PRN (17:43)
--- NOTE | 2020-05-05 17:48 | PN ---
Teaching Attending Note Name of Resident: Nile Bell ATTENDING PHYSICIAN STATEMENT I saw and evaluated the patient. I reviewed the resident's note and discussed the case with the resident. I agree with the resident's findings and plan as documented. SUBJECTIVE: OBJECTIVE: ASSESSMENT AND PLAN: Patient was seen and examined, chart reviewed Ms. Marques is a 54 y/o Female with severe mental disability from 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 # Hypoxia - patient likely had aspiration pneumonitis - inflammation of airway secondary to gastric contents - patient continued on nasal canula - CT chest 04/29 negative for infiltrate or effusion # Abdominal pain/distension/guarding - CT Chest 04/29 Compared to imaging 07/2019 there is interval increase in diffuse colonic fecal retention - GI consulted (Dr. Brooke) - colonoscopy outpatient - lactulose as needed # Left hand blister: - may be related to a peripheral IV line which infiltrated - Consulted ID recommends IV Doxycycline 100mg BID - ice packs - monitor # Low grade Fever - Follow-up UA and chest xray - IV fluid hydration # Hypotension on admission - Likely due to hypovolemia in the setting of vaso-vagal reaction - patient constipated on admission - straining leading to vasovagal reaction #Transaminitis - Hepatitis panel - positive for HEP A and B AB
[2020-05-05] MEDS: BACLOFEN 10 MG TABLET (FP) PO SCH (21:56)
[2020-05-05] MEDS: SENNOSIDES 8.8 MG/5 ML BULK BOTTLE PO SCH (21:57)
[2020-05-05] MEDS: diazePAM 5 MG TABLET PO SCH (21:57)
[2020-05-05] MEDS: CALCIUM 500MG/VIT-D 200 UNITS COMBO TABLET (FP) PO SCH (21:59)
[2020-05-05] MEDS: CHLORHEXIDINE GLUCONATE 0.12% 15ML CUP MM SCH (22:00)
[2020-05-05] MEDS: FAMOTIDINE 40 MG/5 ML ORAL SUSPENSION PO SCH (22:00)
[2020-05-06] MEDS: BACLOFEN 10 MG TABLET (FP) PO SCH ×3 (05:43→21:18)
[2020-05-06] MEDS ORDERED: PT OWN MED DRAWER 7, Y5N ONE ×2 (09:03→20:59)
[2020-05-06] MEDS: CHLORHEXIDINE GLUCONATE 0.12% 15ML CUP MM SCH ×2 (09:18→21:20)
[2020-05-06] MEDS: CALCIUM 500MG/VIT-D 200 UNITS COMBO TABLET (FP) PO SCH ×2 (09:18→21:20)
[2020-05-06] MEDS: FAMOTIDINE 40 MG/5 ML ORAL SUSPENSION PO SCH ×2 (09:18→21:20)
[2020-05-06] MEDS: ENOXAPARIN NA (PORCINE) 40 MG/0.4 ML DISP.SYRIN SQ SCH (09:19)
[2020-05-06] MEDS: levETIRAcetam 500 MG/5 ML ORAL SOLUTION (UNIT-DOSE CUPS) PO SCH ×2 (09:19→21:18)
[2020-05-06] MEDS: PANTOPRAZOLE 20 MG TABLET PO SCH (09:20)
[2020-05-06] MEDS: diazePAM 5 MG TABLET PO SCH ×2 (09:20→21:18)
[2020-05-06] MEDS: LORATADINE 10 MG TABLET PO SCH (09:20)
[2020-05-06 10:31] LABS: HEMATOCRIT 33.1 % (32.4-45.2); HEMOGLOBIN 10.9 GM/dL (10.7-15.3); MCH 29.4 pg (25.7-33.7); PLATELET COUNT 209 K/MM3 (134-434); RBC 3.72 M/mm3 (3.60-5.2); RDW 14.5 % (11.6-15.6)
--- NOTE | 2020-05-06 10:50 | PN ---
Progress Note, RAIL TECHNICIAN - Note Progress Note: Selected Entries 05/04/20 05/04/20 05/05/20 12:40 18:00 07:10 Breakfast 100% Lunch 100% Supper 25% Temperature Pulse Rate Blood Pressure O2 Sat by Pulse 99 Oximetry (%) Oxygen Delivery Method Oxygen Flow Rate 05/05/20 05/05/20 05/05/20 10:00 10:44 14:34 Breakfast 100% Lunch 100% Supper Temperature Pulse Rate Blood Pressure O2 Sat by Pulse 96 96 Oximetry (%) Oxygen Delivery Nasal Cannula Method Oxygen Flow 2 Rate 05/05/20 05/05/20 05/05/20 15:45 21:00 21:54 Breakfast 100% Lunch 100% Supper Temperature Pulse Rate Blood Pressure O2 Sat by Pulse 99 99 Oximetry (%) Oxygen Delivery Nasal Cannula Method Oxygen Flow 2 Rate 05/06/20 05/06/20 05/06/20 01:00 05:40 09:00 Breakfast Lunch Supper Temperature 98.9 F 99.2 F 97.7 F Pulse Rate 94 H 82 70 Blood Pressure 115/65 111/79 119/97 O2 Sat by Pulse 99 99 100 Oximetry (%) Oxygen Delivery Method Oxygen Flow Rate Laboratory Tests 05/06/20 09:34 WBC 6.0 Pt receiving Dys puree/honey thick liquid on tsp PLEASE MODIFY DIET ORDER TO COMMUNICATE WHAT PT IS RECEIVING-(No liquid order noted)
[2020-05-06] MEDS: DOXYCYCLINE INJECTION 100 MG in DEXTROSE 5%-WATER - 100 ML IVPB SCH (11:01)
[2020-05-06 11:03] LABS: ALBUMIN 2.4 g/dl (3.4-5.0); BILIRUBIN,TOTAL 0.3 mg/dL (0.2-1); BLOOD UREA NITROGEN 3.8 mg/dL (7-18); CALCIUM 8.7 mg/dL (8.5-10.1); CREATININE 0.4 mg/dL (0.55-1.3); MAGNESIUM 2.1 mg/dL (1.8-2.4); PHOSPHOROUS 3.4 mg/dL (2.5-4.9); POTASSIUM 4.3 mmol/L (3.5-5.1); TOT PROT 5.8 g/dl (6.4-8.2)
--- NOTE | 2020-05-06 13:06 | PN ---
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 - Current Medication List Current Medications: Active Medications Al Hydroxide/Mg Hydroxide (Mylanta Oral Suspension -) 30 ml PO PRN PRN PRN Reason: INDIGESTION Baclofen (Lioresal -) 10 mg PO TID [facility] Last Admin: 05/06/20 05:43 Dose: 10 mg Documented by: Calcium Carbonate/Cholecalciferol (Os-Hitesh 500+D -) 1 tab PO BID [facility] Last Admin: 05/06/20 09:18 Dose: 1 tab Documented by: Chlorhexidine Gluconate (Peridex -) 15 ml MM BID [facility] Last Admin: 05/06/20 09:18 Dose: 15 ml Documented by: Diazepam (Valium -) 15 mg PO BID [facility] Last Admin: 05/06/20 09:20 Dose: 15 mg Documented by: Enoxaparin Sodium (Lovenox -) 40 mg SQ DAILY [facility] Last Admin: 05/06/20 09:19 Dose: 40 mg Documented by: Famotidine (Pepcid) 20 mg PO BID [facility] Last Admin: 05/06/20 09:18 Dose: 20 mg Documented by: Doxycycline Hyclate 100 mg/ (Dextrose) 100 mls @ 50 mls/hr IVPB BID [facility] Last Admin: 05/06/20 11:01 Dose: 50 mls/hr Documented by: Levetiracetam (Keppra Oral Solution -) 500 mg PO BID [facility] Last Admin: 05/06/20 09:19 Dose: 500 mg Documented by: Loratadine (Claritin -) 10 mg PO DAILY [facility] Last Admin: 05/06/20 09:20 Dose: 10 mg Documented by: Pantoprazole Sodium (Protonix -) 20 mg PO DAILY [facility] Last Admin: 05/06/20 09:20 Dose: 20 mg Documented by: Senna (Senna Oral Solution -) 8.8 mg PO HS [facility] Last Admin: 05/05/20 21:57 Dose: 8.8 ml Documented by: - Objective Vital Signs: Vital Signs Temperature 97.7 F 05/06/20 09:00 Pulse Rate 70 05/06/20 09:00 Respiratory Rate 16 05/06/20 09:00 Blood Pressure 119/97 05/06/20 09:00 O2 Sat by Pulse Oximetry (%) 100 05/06/20 09:00 Constitutional: Yes: No Distress, Calm Cardiovascular: Yes: S1, S2 Respiratory: Yes: Regular, CTA Bilaterally Gastrointestinal: Yes: Normal Bowel Sounds, Soft Musculoskeletal: Yes: Other Extremities: Yes: Other (contracted) Neurological: Yes: Alert Psychiatric: Yes: Other Labs: CBC, BMP 05/06/20 09:34 05/06/20 09:34 INR, PTT INR 0.90 (0.83-1.09) 04/29/20 16:00 Assessment/Plan 54 yo F, nonverbal at baseline, from [facility] with PMH of profound mental retardation, cerebral palsy with spastic quadriplegia, epilepsy (since 1994) and chronic constipation presents to to ER for hypoxia. Pt being admitted for sepsis likely 2/2 aspiration pneumonia. #Sepsis #Transaminitis #Chronic Constipation #Hypochloremia #Hx of Epilepsy plan asp precautions will change to oral doxy rest as per the team
--- NOTE | 2020-05-06 14:26 | PN ---
Teaching Attending Note Name of Resident: Melody Starks ATTENDING PHYSICIAN STATEMENT I saw and evaluated the patient. I reviewed the resident's note and discussed the case with the resident. I agree with the resident's findings and plan as documented. SUBJECTIVE: Resident of [facility] with multiple congenital problems who came here for likely aspiration pneumonitis after found to be hypoxic. Today patient is improved and is at baseline per her aide at bedside. Slight increase in secretions and still using O2. No fevers overnight OBJECTIVE: Vital Signs Temperature 97.7 F 05/06/20 13:00 Pulse Rate 87 05/06/20 16:03 Respiratory Rate 18 05/06/20 16:03 Blood Pressure 97/61 05/06/20 16:03 O2 Sat by Pulse Oximetry (%) 100 05/06/20 13:00 PE: Gen: NAD, will move when touched, otherwise at baseline HEENT: Multiple secretions (decreased compared to before), MMM LUNG: Rhonchi noted b/l bases R>L, 2LNC 98% CARD: RRR no murmurs appreciated ABD: Soft, NT/ND, no guarding or hernias noted EXT: Contracted, L dorsum of hand with serous blisters at various stages of development. 3+ edema LUE, 2+ RUE, no erythema or purulent drainage noted. Pulses intact b/l and symmetrical CBC, BMP 05/06/20 09:34 05/06/20 09:34 Microbiology 05/02/20 05:53 Sputum - Oropharynx Suctioned Sputum Gram Stain - Final 05/02/20 05:53 Sputum - Oropharynx Suctioned Sputum Sputum Culture - Final Yeast Like Organism 04/29/20 16:00 Blood - Peripheral Venous Blood Culture - Final NO GROWTH AFTER 5 DAYS INCUBATION 04/29/20 16:00 Blood - Peripheral Venous Blood Culture - Final NO GROWTH AFTER 5 DAYS INCUBATION 04/29/20 16:25 Urine - Urine - Catheterized Urine Culture - Final NO GROWTH OBTAINED Active Medications Al Hydroxide/Mg Hydroxide (Mylanta Oral Suspension -) 30 ml PO PRN PRN PRN Reason: INDIGESTION Baclofen (Lioresal -) 10 mg PO TID [facility] Last Admin: 05/06/20 14:42 Dose: 10 mg Documented by: Calcium Carbonate/Cholecalciferol (Os-Hitesh 500+D -) 1 tab PO BID [facility] Last Admin: 05/06/20 09:18 Dose: 1 tab Documented by: Chlorhexidine Gluconate (Peridex -) 15 ml MM BID [facility] Last Admin: 05/06/20 09:18 Dose: 15 ml Documented by: Diazepam (Valium -) 15 mg PO BID [facility] Last Admin: 05/06/20 09:20 Dose: 15 mg Documented by: Doxycycline Hyclate (Vibramycin -) 100 mg PO BID@1000,1800 [facility] Enoxaparin Sodium (Lovenox -) 40 mg SQ DAILY [facility] Last Admin: 05/06/20 09:19 Dose: 40 mg Documented by: Famotidine (Pepcid) 20 mg PO BID [facility] Last Admin: 05/06/20 09:18 Dose: 20 mg Documented by: Levetiracetam (Keppra Oral Solution -) 500 mg PO BID [facility] Last Admin: 05/06/20 09:19 Dose: 500 mg Documented by: Loratadine (Claritin -) 10 mg PO DAILY [facility] Last Admin: 05/06/20 09:20 Dose: 10 mg Documented by: Pantoprazole Sodium (Protonix -) 20 mg PO DAILY [facility] Last Admin: 05/06/20 09:20 Dose: 20 mg Documented by: Senna (Senna Oral Solution -) 8.8 mg PO HS [facility] Last Admin: 05/05/20 21:57 Dose: 8.8 ml Documented by: ASSESSMENT AND PLAN: Sepsis 2/2 Aspiration Pneumonitis L Hand Bullae History of Epilepsy --Patient with resolving aspiration pneuominitis --Transition to oral doxy BID --Trial off oxygen (monitor for severe tachypnea) --If patient is not hypoxic can d/c back to [place] --Monitor L hand bullae; likely related to previous IV and edematous UE --If continues can get doppler UE --D/C fluids and monitor fluid status --Continue home antiepileptics and home colonic motility medications Dispo: If hypoxia resolved and patient remains stable can transfer back to [facility] DO Eliud Au
[2020-05-06] MEDS: DEXTROSE 5%-LACTATED RINGERS 1,000 ML IV SCH (14:42)
[2020-05-06] MEDS: DOXYCYCLINE HYCLATE 100 MG CAPSULE PO SCH (17:41)
--- NOTE | 2020-05-06 19:02 | PN ---
Physical Exam: SUBJECTIVE: Patient seen and examined at bedside, she was sleeping comfortably. As per nursing, no acute event overnight. OBJECTIVE: Vital Signs Period Temp Pulse Resp BP Sys/Ascencio Pulse Ox Last 24 Hr 97.7 F-99.2 F 70-108 16-21 97-119/61-97 94-100 GENERAL: The patient is awake, in no acute distress. LUNGS: Breath sounds equal, clear to auscultation bilaterally, no wheezes, no crackles, no accessory muscle use. HEART: Regular rate and rhythm, S1, S2 without murmur, rub or gallop. ABDOMEN: Soft, nontender, nondistended, normoactive bowel sounds, no guarding, no rebound, no hepatosplenomegaly, no masses. EXTREMITIES: 2+ pulses, warm, well-perfused. mild edema of R. hand. R. Hand multiple Blisters Laboratory Results - last 24 hr 05/05/20 05/06/20 05/06/20 21:38 05:42 09:34 WBC 6.0 RBC 3.72 Hgb 10.9 Hct 33.1 MCV 89.0 MCH 29.4 MCHC 33.0 RDW 14.5 Plt Count 209 D MPV 8.0 Sodium Potassium Chloride Carbon Dioxide Anion Gap BUN Creatinine Est GFR (CKD-EPI)AfAm Est GFR (CKD-EPI)NonAf POC Glucometer 111 91 Random Glucose Calcium Phosphorus Magnesium Total Bilirubin AST ALT Alkaline Phosphatase Total Protein Albumin 05/06/20 09:34 WBC RBC Hgb Hct MCV MCH MCHC RDW Plt Count MPV Sodium 141 Potassium 4.3 Chloride 104 Carbon Dioxide 32 Anion Gap 5 L BUN 3.8 L Creatinine 0.4 L Est GFR (CKD-EPI)AfAm 137.82 Est GFR (CKD-EPI)NonAf 118.91 POC Glucometer Random Glucose 76 Calcium 8.7 Phosphorus 3.4 Magnesium 2.1 Total Bilirubin 0.3 AST 28 ALT 37 Alkaline Phosphatase 117 Total Protein 5.8 L Albumin 2.4 L Active Medications Generic Name Dose Route Start Last Admin Trade Name Freq PRN Reason Stop Dose Admin Al Hydroxide/Mg Hydroxide 30 ml 05/05/20 17:43 Mylanta Oral Suspension - PO PRN PRN INDIGESTION Baclofen 10 mg 05/05/20 22:00 05/06/20 14:42 Lioresal - PO 10 mg TID [facility]WIN Administration Calcium Carbonate/Cholecalciferol 1 tab 05/05/20 22:00 05/06/20 09:18 Os-Hitesh 500+D - PO 1 tab BID [facility] Administration Chlorhexidine Gluconate 15 ml 05/05/20 22:00 05/06/20 09:18 Peridex - MM 15 ml BID D[facility]WIN Administration Diazepam 15 mg 05/05/20 22:00 05/06/20 09:20 Valium - PO 15 mg BID [facility] Administration Doxycycline Hyclate 100 mg 05/06/20 18:00 05/06/20 17:41 Vibramycin - PO 100 mg BID@1000,1800 D[facility]WIN Administration Enoxaparin Sodium 40 mg 04/30/20 10:00 05/06/20 09:19 Lovenox - SQ 40 mg DAILY D[facility]WIN Administration Famotidine 20 mg 05/05/20 22:00 05/06/20 09:18 Pepcid PO 20 mg BID D[facility]WIN Administration Levetiracetam 500 mg 05/04/20 22:00 05/06/20 09:19 Keppra Oral Solution - PO 500 mg BID D[facility]WIN Administration Loratadine 10 mg 05/06/20 10:00 05/06/20 09:20 Claritin - PO 10 mg DAILY D[facility] Administration Pantoprazole Sodium 20 mg 05/06/20 10:00 05/06/20 09:20 Protonix - PO 20 mg DAILY [facility] Administration Senna 8.8 mg 04/30/20 22:00 05/05/20 21:57 Senna Oral Solution - PO 8.8 ml HS DARWIN Administration ASSESSMENT/PLAN: Ms. Marques is a 54 y/o F with a PMH of severe mental disability 2/[address] [facility], quadriplegia, and chronic constipation presented to the ER on 04/29 for hypotension/hypoxia after oral fluid prepping for colonoscopy. #Sepsis 2/2 Aspiration pneumonitis - Resolving - Started Transition from IV to Oral doxy BID - Trial off Oxygen, saturating at 94% room air, stable v/s, no tachypnea - if she is not de saturating at RA, she can be discharged back to [facility] #Left hand blisters - Nursing staff endorses that patient had IV placed in that area few days prior to onset of blisters. Concern for IV infiltration. - Continue to monitor blisters and fluid status - continue to monitor v/s #History of seizures - Continue oral Diazepam, Keppra as patient is now tolerating diet. - Seizure precautions #Constipation -Continue Home meds, Lactulose if needed. -GI recommendations: colonoscopy as outpatient. #FEN - No standing fluids at this time - Continue to monitor electrolytes - Puree diet #DVT Prophylaxis -Lovenox 40mg subq daily Disposition -Continue to monitor in [place] Visit type - Emergency Visit Emergency Visit: Yes ED Registration Date: 04/29/20 Care time: The patient presented to the Emergency Department on the above date and was hospitalized for further evaluation of their emergent condition. - New Patient This patient is new to me today: Yes Date on this admission: 05/12/20 - Critical Care Critical Care patient: No - Discharge Referral Referred to [facility] Med P.C.: No ATTENDING PHYSICIAN STATEMENT I saw and evaluated the patient. I reviewed the resident's note and discussed the case with the resident. I agree with the resident's findings and plan as documented. SUBJECTIVE: OBJECTIVE: ASSESSMENT AND PLAN:
[2020-05-06] MEDS: SENNOSIDES 8.8 MG/5 ML BULK BOTTLE PO SCH (21:19)
[2020-05-07] MEDS: BACLOFEN 10 MG TABLET (FP) PO SCH ×3 (05:39→21:30)
[2020-05-07 08:58] LABS: BASO % 0.2 % (0-2.0); EOS % 2.5 % (0-4.5); HEMATOCRIT 34.9 % (32.4-45.2); HEMOGLOBIN 11.5 GM/dL (10.7-15.3); MCH 29.9 pg (25.7-33.7); MEAN CELL VOLUME 90.6 fl (80-96); MEAN PLT VOLUME 8.1 fl (7.5-11.1); MONO % 10.7 % (3.8-10.2); NEUT % 58.6 % (42.8-82.8); PLATELET COUNT 274 K/MM3 (134-434); RBC 3.85 M/mm3 (3.60-5.2); RDW 14.3 % (11.6-15.6); WHITE BLOOD COUNT 5.5 K/mm3 (4.0-10.0)
[2020-05-07] MEDS ORDERED: PT OWN MED DRAWER 7, Y5N ONE (09:24)
[2020-05-07 09:28] LABS: ALBUMIN 2.6 g/dl (3.4-5.0); BILIRUBIN,TOTAL 0.3 mg/dL (0.2-1); BLOOD UREA NITROGEN 7.1 mg/dL (7-18); CALCIUM 8.5 mg/dL (8.5-10.1); CREATININE 0.5 mg/dL (0.55-1.3); MAGNESIUM 2.1 mg/dL (1.8-2.4); PHOSPHOROUS 3.6 mg/dL (2.5-4.9); TOT PROT 6.1 g/dl (6.4-8.2)
[2020-05-07] MEDS: diazePAM 5 MG TABLET PO SCH ×2 (09:37→21:30)
[2020-05-07] MEDS: DOXYCYCLINE HYCLATE 100 MG CAPSULE PO SCH ×2 (09:38→18:11)
[2020-05-07] MEDS: levETIRAcetam 500 MG/5 ML ORAL SOLUTION (UNIT-DOSE CUPS) PO SCH ×2 (09:38→21:30)
[2020-05-07] MEDS: PANTOPRAZOLE 20 MG TABLET PO SCH (09:38)
[2020-05-07] MEDS: LORATADINE 10 MG TABLET PO SCH (09:38)
[2020-05-07] MEDS: FAMOTIDINE 40 MG/5 ML ORAL SUSPENSION PO SCH ×2 (09:40→22:20)
[2020-05-07] MEDS: CALCIUM 500MG/VIT-D 200 UNITS COMBO TABLET (FP) PO SCH ×2 (09:40→22:20)
[2020-05-07] MEDS: CHLORHEXIDINE GLUCONATE 0.12% 15ML CUP MM SCH ×2 (09:40→22:00)
--- NOTE | 2020-05-07 10:46 | PN ---
Progress Note, COMPLIANCE REVIEWER - Note Progress Note: Selected Entries 05/06/20 05/06/20 05/06/20 11:58 15:00 17:59 Breakfast 50% Lunch 50% Supper 50% Temperature Pulse Rate Blood Pressure 05/07/20 05/07/20 05/07/20 01:00 05:00 10:00 Breakfast Lunch Supper Temperature 98.9 F 100.4 F H 98.9 F Pulse Rate 114 H 98 H 108 H Blood Pressure 134/72 113/70 127/71 Laboratory Tests 05/07/20 07:45 WBC 5.5 On puree/honey on tsp CXR noted
--- NOTE | 2020-05-07 12:34 | PN ---
Progress Note, Physician History of Present Illness: patient has been spiking fevers on doxy - Current Medication List Current Medications: Active Medications Al Hydroxide/Mg Hydroxide (Mylanta Oral Suspension -) 30 ml PO PRN PRN PRN Reason: INDIGESTION Baclofen (Lioresal -) 10 mg PO TID [facility] Last Admin: 05/07/20 05:39 Dose: 10 mg Documented by: Calcium Carbonate/Cholecalciferol (Os-Hitesh 500+D -) 1 tab PO BID [facility] Last Admin: 05/07/20 09:40 Dose: 1 tab Documented by: Chlorhexidine Gluconate (Peridex -) 15 ml MM BID [facility] Last Admin: 05/07/20 09:40 Dose: 15 ml Documented by: Diazepam (Valium -) 15 mg PO BID [facility] Last Admin: 05/07/20 09:37 Dose: 15 mg Documented by: Doxycycline Hyclate (Vibramycin -) 100 mg PO BID@1000,1800 [facility] Last Admin: 05/07/20 09:38 Dose: 100 mg Documented by: Famotidine (Pepcid) 20 mg PO BID [facility] Last Admin: 05/07/20 09:40 Dose: 20 mg Documented by: Levetiracetam (Keppra Oral Solution -) 500 mg PO BID [facility] Last Admin: 05/07/20 09:38 Dose: 500 mg Documented by: Loratadine (Claritin -) 10 mg PO DAILY [facility] Last Admin: 05/07/20 09:38 Dose: 10 mg Documented by: Pantoprazole Sodium (Protonix -) 20 mg PO DAILY [facility] Last Admin: 05/07/20 09:38 Dose: 20 mg Documented by: Senna (Senna Oral Solution -) 8.8 mg PO HS [facility] Last Admin: 05/06/20 21:19 Dose: 5 ml Documented by: - Objective Vital Signs: Vital Signs Temperature 98.9 F 05/07/20 10:00 Pulse Rate 108 H 05/07/20 10:00 Respiratory Rate 18 05/07/20 10:00 Blood Pressure 127/71 05/07/20 10:00 O2 Sat by Pulse Oximetry (%) 93 L 05/07/20 10:00 Constitutional: Yes: No Distress, Calm Cardiovascular: Yes: S1, S2 Respiratory: Yes: Regular, CTA Bilaterally Gastrointestinal: Yes: Normal Bowel Sounds, Soft Musculoskeletal: Yes: WNL Extremities: Yes: Other (contracted) Neurological: Yes: Alert Labs: CBC, BMP 05/07/20 07:45 05/07/20 07:45 INR, PTT INR 0.90 (0.83-1.09) 04/29/20 16:00 Assessment/Plan 54 yo F, nonverbal at baseline, from [facility] with PMH of profound mental retardation, cerebral palsy with spastic quadriplegia, epilepsy (since 1994) and chronic constipation presents to to ER for hypoxia. Pt being admitted for sepsis likely 2/2 aspiration pneumonia. #Sepsis #Transaminitis #Chronic Constipation #Hypochloremia #Hx of Epilepsy plan i think this is due to aspiration will add augmentin and monitor fevers
--- NOTE | 2020-05-07 13:59 | PN ---
Physical Exam: SUBJECTIVE: Patient seen and examined at bedside, patient was sleeping comfortably. As per nursing, patient desat to 80s around midnight, placed her back on NC 2L. OBJECTIVE: Vital Signs Period Temp Pulse Resp BP Sys/Ascencio Pulse Ox Last 24 Hr 98.6 F-100.4 F 87-114 18-20 97-134/61-82 93-99 GENERAL: The patient is awake, in no acute distress. LUNGS: Breath sounds equal, clear to auscultation bilaterally, no wheezes, no crackles, no accessory muscle use. HEART: Regular rate and rhythm, S1, S2 without murmur, rub or gallop. ABDOMEN: Soft, nontender, nondistended, normoactive bowel sounds, no guarding, no rebound, no hepatosplenomegaly, no masses. EXTREMITIES: 2+ pulses, warm, well-perfused, mild edema of R. hand. R. Hand multiple Blisters, healing, resolving Laboratory Results - last 24 hr 05/06/20 05/07/20 05/07/20 22:12 05:54 07:45 WBC 5.5 RBC 3.85 Hgb 11.5 Hct 34.9 MCV 90.6 MCH 29.9 MCHC 33.0 RDW 14.3 Plt Count 274 D MPV 8.1 Absolute Neuts (auto) 3.2 Neutrophils % 58.6 Lymphocytes % 28.0 D Monocytes % 10.7 H Eosinophils % 2.5 Basophils % 0.2 Nucleated RBC % 0 Sodium Potassium Chloride Carbon Dioxide Anion Gap BUN Creatinine Est GFR (CKD-EPI)AfAm Est GFR (CKD-EPI)NonAf POC Glucometer 97 80 Random Glucose Calcium Phosphorus Magnesium Total Bilirubin AST ALT Alkaline Phosphatase Total Protein Albumin 05/07/20 05/07/20 07:45 11:48 WBC RBC Hgb Hct MCV MCH MCHC RDW Plt Count MPV Absolute Neuts (auto) Neutrophils % Lymphocytes % Monocytes % Eosinophils % Basophils % Nucleated RBC % Sodium 141 Potassium 4.0 Chloride 102 Carbon Dioxide 33 H Anion Gap 6 L BUN 7.1 Creatinine 0.5 L Est GFR (CKD-EPI)AfAm 128.07 Est GFR (CKD-EPI)NonAf 110.50 POC Glucometer 112 Random Glucose 77 Calcium 8.5 Phosphorus 3.6 Magnesium 2.1 Total Bilirubin 0.3 AST 26 ALT 36 Alkaline Phosphatase 126 H Total Protein 6.1 L Albumin 2.6 L Active Medications Generic Name Dose Route Start Last Admin Trade Name Freq PRN Reason Stop Dose Admin Al Hydroxide/Mg Hydroxide 30 ml 05/05/20 17:43 Mylanta Oral Suspension - PO PRN PRN INDIGESTION Baclofen 10 mg 05/05/20 22:00 05/07/20 05:39 Lioresal - PO 10 mg TID [facility] Administration Calcium Carbonate/Cholecalciferol 1 tab 05/05/20 22:00 05/07/20 09:40 Os-Hitesh 500+D - PO 1 tab BID [facility] Administration Chlorhexidine Gluconate 15 ml 05/05/20 22:00 05/07/20 09:40 Peridex - MM 15 ml BID [facility] Administration Diazepam 15 mg 05/05/20 22:00 05/07/20 09:37 Valium - PO 15 mg BID [facility] Administration Doxycycline Hyclate 100 mg 05/06/20 18:00 05/07/20 09:38 Vibramycin - PO 100 mg BID@1000,1800 D[facility] Administration Famotidine 20 mg 05/05/20 22:00 05/07/20 09:40 Pepcid PO 20 mg BID D[facility]WIN Administration Levetiracetam 500 mg 05/04/20 22:00 05/07/20 09:38 Keppra Oral Solution - PO 500 mg BID DARWIN Administration Loratadine 10 mg 05/06/20 10:00 05/07/20 09:38 Claritin - PO 10 mg DAILY [facility]WIN Administration Pantoprazole Sodium 20 mg 05/06/20 10:00 05/07/20 09:38 Protonix - PO 20 mg DAILY D[facility] Administration Senna 8.8 mg 04/30/20 22:00 05/06/20 21:19 Senna Oral Solution - PO 5 ml HS DARWIN Administration ASSESSMENT/PLAN: Ms. Marques is a 54 y/o F with a PMH of severe mental disability 2/2 cerebral palsy from [facility], quadriplegia, and chronic constipation presented to the ER on 04/29 for hypotension/hypoxia after oral fluid prepping for colonoscopy. #Sepsis 2/2 Aspiration pneumonitis - T 96.7-97.5; tachycardic on arrival; hypotensive in the ED; tachypneic on arrival lactate 2.1 - BLD cx negative x 2 - Trial off Oxygen, saturating at 94% room air, stable v/s, no tachypnea - Patient desated @ 80s last night on RA, 2L NC was started again. - v/s T 100.4 with P 98, will continue to monitor v/s - CXR 05/07: questionable infiltrate L base. - Spiking fevers at night 100.4 Tmax #Left hand blisters - Nursing staff endorses that patient had IV placed in that area few days prior to onset of blisters. Concern for IV infiltration. - Today, Blisters are decreasing and healing, Continue to monitor blisters and fluid status - continue to monitor v/s - Continue with Oral doxy BID #History of seizures - Continue oral Diazepam, Keppra as patient is now tolerating diet. - Seizure precautions #Constipation - As per nursing, patient has not had a BM for 3 days, Ordered Water fleet enema. - Continue Home meds, Lactulose if needed. - GI recommendations: colonoscopy as outpatient. #FEN - No standing fluids at this time - Continue to monitor electrolytes - Puree diet #DVT Prophylaxis -Lovenox 40mg subq daily Disposition -Continue to monitor in MS, Continue to monitor v/s patient can be d/c if temp is stable and patient can tolerate oxygen on RA Visit type - Emergency Visit Emergency Visit: Yes ED Registration Date: 04/29/20 Care time: The patient presented to the Emergency Department on the above date and was hospitalized for further evaluation of their emergent condition. - New Patient This patient is new to me today: Yes Date on this admission: 05/12/20 - Critical Care Critical Care patient: No - Discharge Referral Referred to [facility] Med P.C.: No ATTENDING PHYSICIAN STATEMENT I saw and evaluated the patient. I reviewed the resident's note and discussed the case with the resident. I agree with the resident's findings and plan as documented. SUBJECTIVE: OBJECTIVE: ASSESSMENT AND PLAN:
[2020-05-07] MEDS ORDERED: ENOXAPARIN NA (PORCINE) 40 MG/0.4 ML DISP.SYRIN SQ ONE (15:15)
--- NOTE | 2020-05-07 18:07 | PN ---
Teaching Attending Note Name of Resident: Melody Starks ATTENDING PHYSICIAN STATEMENT I saw and evaluated the patient. I reviewed the resident's note and discussed the case with the resident. I agree with the resident's findings and plan as documented. SUBJECTIVE: Non-verbal, unable to participate in medical interview. OBJECTIVE: Appears comfortable. Febrile - Tmax 100.4, Hemodynamically stable. Last Vital Signs Temp Pulse Resp BP Pulse Ox 98.9 F 87 18 92/59 L 90 L 05/07/20 10:00 05/07/20 15:57 05/07/20 15:57 05/07/20 15:57 05/07/20 15:57 Heart - S1, S2, RRR lungs - decreased air entry globally Abdomen - non-tender. Bowel Sounds normal. Extremities - Contractures UEs and LEs. Mild erythema and deroofed blisters dorsum of L hand Laboratory Results - last 24 hr 05/06/20 05/07/20 05/07/20 22:12 05:54 07:45 WBC 5.5 RBC 3.85 Hgb 11.5 Hct 34.9 MCV 90.6 MCH 29.9 MCHC 33.0 RDW 14.3 Plt Count 274 D MPV 8.1 Absolute Neuts (auto) 3.2 Neutrophils % 58.6 Lymphocytes % 28.0 D Monocytes % 10.7 H Eosinophils % 2.5 Basophils % 0.2 Nucleated RBC % 0 Sodium Potassium Chloride Carbon Dioxide Anion Gap BUN Creatinine Est GFR (CKD-EPI)AfAm Est GFR (CKD-EPI)NonAf POC Glucometer 97 80 Random Glucose Calcium Phosphorus Magnesium Total Bilirubin AST ALT Alkaline Phosphatase Total Protein Albumin 05/07/20 05/07/20 05/07/20 07:45 11:48 17:39 WBC RBC Hgb Hct MCV MCH MCHC RDW Plt Count MPV Absolute Neuts (auto) Neutrophils % Lymphocytes % Monocytes % Eosinophils % Basophils % Nucleated RBC % Sodium 141 Potassium 4.0 Chloride 102 Carbon Dioxide 33 H Anion Gap 6 L BUN 7.1 Creatinine 0.5 L Est GFR (CKD-EPI)AfAm 128.07 Est GFR (CKD-EPI)NonAf 110.50 POC Glucometer 112 92 Random Glucose 77 Calcium 8.5 Phosphorus 3.6 Magnesium 2.1 Total Bilirubin 0.3 AST 26 ALT 36 Alkaline Phosphatase 126 H Total Protein 6.1 L Albumin 2.6 L Current Medications Generic Name Dose Route Start Last Admin Trade Name Freq PRN Reason Stop Dose Admin Al Hydroxide/Mg Hydroxide 30 ml 05/05/20 17:43 Mylanta Oral Suspension - PO PRN PRN INDIGESTION Baclofen 10 mg 05/05/20 22:00 05/07/20 16:26 Lioresal - PO 10 mg TID [facility]ARWIN Administration Calcium Carbonate/Cholecalciferol 1 tab 05/05/20 22:00 05/07/20 09:40 Os-Hitesh 500+D - PO 1 tab BID [facility] Administration Chlorhexidine Gluconate 15 ml 05/05/20 22:00 05/07/20 09:40 Peridex - MM 15 ml BID DARWIN Administration Diazepam 15 mg 05/05/20 22:00 05/07/20 09:37 Valium - PO 15 mg BID DARWIN Administration Doxycycline Hyclate 100 mg 05/06/20 18:00 05/07/20 09:38 Vibramycin - PO 100 mg BID@1000,1800 DARWIN Administration Famotidine 20 mg 05/05/20 22:00 05/07/20 09:40 Pepcid PO 20 mg BID DARWIN Administration Levetiracetam 500 mg 05/04/20 22:00 05/07/20 09:38 Keppra Oral Solution - PO 500 mg BID DARWIN Administration Loratadine 10 mg 05/06/20 10:00 05/07/20 09:38 Claritin - PO 10 mg DAILY D[facility]WIN Administration Pantoprazole Sodium 20 mg 05/06/20 10:00 05/07/20 09:38 Protonix - PO 20 mg DAILY DARWIN Administration Senna 8.8 mg 04/30/20 22:00 05/06/20 21:19 Senna Oral Solution - PO 5 ml HS DARWIN Administration Home Medications Medication Instructions Recorded Diazepam Rectal Gel [Diastat 10 mg RC PRN PRN 07/31/19 *Rectal Gel*] Diazepam [Valium] 15 mg PO BID 07/31/19 Baclofen 10 mg PO TID 04/30/20 Calcium Carbonate/Vitamin D3 1 each PO BID 04/30/20 [Oystercal-D 500 mg-400 Unit Tb] Chlorhexidine Gluconate [Peridex -] 15 ml MM BID 04/30/20 Docusate Sodium [Colace] 100 mg PO BID 04/30/20 Loratadine [Claritin] 10 mg PO DAILY 04/30/20 Mag Hydrox/Al Hydrox/Simeth 30 ml PO PRN PRN 04/30/20 [Mylanta Oral Suspension -] Omeprazole 20 mg PO DAILY 04/30/20 Ranitidine Oral Solution [Zantac] 150 mg PO BID 04/30/20 levETIRAcetam [Keppra -] 500 mg PO BID 04/30/20 ASSESSMENT AND PLAN: 54 year old female [place] resident with severe developmental delay secondary to Cerebral Palsy, Seizure disorder, presented with hypoxia and hypotension after oral bowel prep for colonoscopy for chronic constipation. 1. Acute respiratory Failure and Sepsis secondary to Aspiration Pneumonia Desaturated again overnight to 80s - now back on supplemental O2. Repeat CXR - questionable infiltrate L base. Completed Abx course. On Dysphagia pureed diet - Speech therapy following. 2. L Hand cellulitis with blisters sec to IV infiltration Fever today - Tmax 100.4 Continue oral Doxy as per ID. 3. Seizure Disorder Contiue Keppra. 4. Cerebral Palsy - continue Baclofen, Valium 5. GERD - Continue PPI/H2 antoni DVT Px - Lovenox SQ
[2020-05-07] MEDS: SENNOSIDES 8.8 MG/5 ML BULK BOTTLE PO SCH (22:20)
[2020-05-07] MEDS ORDERED: ACETAMINOPHEN 650 MG/20.3 ML ORAL SOLUTION (CUPS) PO PRN (23:52)
[2020-05-08 01:45] LABS: EPI CELLS 3 /uL (0-25.1); HYALINE CASTS 3 /uL (0-3.1); URINE APPEARANCE CLEAR; URINE BACTERIA 3426 /uL (0-1359); URINE BILIRUBIN NEGATIVE (NEGATIVE); URINE COLOR YELLOW; URINE GLUCOSE (UA) NEGATIVE (NEGATIVE); URINE KETONE NEGATIVE (NEGATIVE); URINE LEUK ESTERASE 2+ (NEGATIVE); URINE NITRITE NEGATIVE (NEGATIVE); URINE PROTEIN NEGATIVE (NEGATIVE); URINE UROBILINOGEN 0.2 mg/dL (0.2-1.0); URINE WBC 314 /uL (0-25.8)
[2020-05-08 05:22] LABS: URINE RBC 5 /uL (0-23.9)
[2020-05-08] MEDS: BACLOFEN 10 MG TABLET (FP) PO SCH ×3 (05:59→22:24)
[2020-05-08 09:09] LABS: HEMATOCRIT 35.9 % (32.4-45.2); HEMOGLOBIN 11.9 GM/dL (10.7-15.3); MCH 29.7 pg (25.7-33.7); MCHC 33.3 g/dl (32.0-36.0); MEAN CELL VOLUME 89.4 fl (80-96); PLATELET COUNT 395 K/MM3 (134-434); RBC 4.02 M/mm3 (3.60-5.2); RDW 14.4 % (11.6-15.6); WHITE BLOOD COUNT 7.1 K/mm3 (4.0-10.0)
[2020-05-08 09:10] LABS: BASO % 0.3 % (0-2.0); EOS % 1.3 % (0-4.5); LYMPH % 14.6 % (8-40); MEAN PLT VOLUME 7.6 fl (7.5-11.1); MONO % 8.1 % (3.8-10.2); NEUT % 75.7 % (42.8-82.8)
[2020-05-08 09:37] LABS: ALBUMIN 2.9 g/dl (3.4-5.0); BILIRUBIN,TOTAL 0.4 mg/dL (0.2-1); BLOOD UREA NITROGEN 9.4 mg/dL (7-18); CALCIUM 8.9 mg/dL (8.5-10.1); CREATININE 0.4 mg/dL (0.55-1.3); MAGNESIUM 2.2 mg/dL (1.8-2.4); PHOSPHOROUS 3.7 mg/dL (2.5-4.9); TOT PROT 6.7 g/dl (6.4-8.2)
[2020-05-08] MEDS ORDERED: AMOX TR/POT CLAV 875MG/125MG TABLETS (FP) PO SCH (09:37)
--- NOTE | 2020-05-08 09:40 | PN ---
Progress Note, Physician History of Present Illness: events noted patient starting to spike fever - Current Medication List Current Medications: Active Medications Acetaminophen (Tylenol Oral Solution -) 600 mg PO ONCE PRN PRN Reason: FEVER Last Admin: 05/08/20 00:59 Dose: 600 mg Documented by: Al Hydroxide/Mg Hydroxide (Mylanta Oral Suspension -) 30 ml PO PRN PRN PRN Reason: INDIGESTION Amoxicillin/Clavulanate Potassium (Augmentin - 875mg Tablet) 1 tab PO BID@0800,1730 [facility] Baclofen (Lioresal -) 10 mg PO TID [facility] Last Admin: 05/08/20 05:59 Dose: 10 mg Documented by: Calcium Carbonate/Cholecalciferol (Os-Hitesh 500+D -) 1 tab PO BID [facility] Last Admin: 05/07/20 22:20 Dose: 1 tab Documented by: Chlorhexidine Gluconate (Peridex -) 15 ml MM BID [facility] Last Admin: 05/07/20 22:00 Dose: 15 ml Documented by: Diazepam (Valium -) 15 mg PO BID [facility] Last Admin: 05/07/20 21:30 Dose: 15 mg Documented by: Doxycycline Hyclate (Vibramycin -) 100 mg PO BID@1000,1800 [facility] Last Admin: 05/07/20 18:11 Dose: 100 mg Documented by: Enoxaparin Sodium (Lovenox -) 40 mg SQ DAILY [facility] Famotidine (Pepcid) 20 mg PO BID [facility] Last Admin: 05/07/20 22:20 Dose: 20 mg Documented by: Piperacillin Sod/Tazobactam (Sod 3.375 gm/ Dextrose) 50 mls @ 100 mls/hr IVPB Q8H-IV [facility]; Protocol Piperacillin Sod/Tazobactam (Sod 3.375 gm/ Dextrose) 50 mls @ 100 mls/hr IVPB Q8H-IV [facility]; Protocol Stop: 05/09/20 09:59 Levetiracetam (Keppra Oral Solution -) 500 mg PO BID [facility] Last Admin: 05/07/20 21:30 Dose: 500 mg Documented by: Loratadine (Claritin -) 10 mg PO DAILY [facility] Last Admin: 05/07/20 09:38 Dose: 10 mg Documented by: Pantoprazole Sodium (Protonix -) 20 mg PO DAILY [facility] Last Admin: 05/07/20 09:38 Dose: 20 mg Documented by: Senna (Senna Oral Solution -) 8.8 mg PO HS [facility] Last Admin: 05/07/20 22:20 Dose: 5 ml Documented by: - Objective Vital Signs: Vital Signs Temperature 98.5 F 05/08/20 05:11 Pulse Rate 97 H 05/08/20 02:41 Respiratory Rate 20 05/08/20 02:41 Blood Pressure 146/58 L 05/08/20 02:41 O2 Sat by Pulse Oximetry (%) 96 05/08/20 02:41 Constitutional: Yes: Calm Eyes: Yes: Conjunctiva Clear Cardiovascular: Yes: S1, S2 Respiratory: Yes: Regular, CTA Bilaterally, Other Gastrointestinal: Yes: Normal Bowel Sounds, Soft Musculoskeletal: Yes: WNL Extremities: Yes: Other (contracted) Neurological: Yes: Alert Labs: CBC, BMP 05/08/20 08:09 05/08/20 08:09 INR, PTT INR 0.90 (0.83-1.09) 04/29/20 16:00 Assessment/Plan 54 yo F, nonverbal at baseline, from [facility] with PMH of profound mental retardation, cerebral palsy with spastic quadriplegia, epilepsy (since 1994) and chronic constipation presents to to ER for hypoxia. Pt being admitted for sepsis likely 2/2 aspiration pneumonia. #Sepsis #Transaminitis #Chronic Constipation #Hypochloremia #Hx of Epilepsy plan i think this is due to aspiration will add zosyn
[2020-05-08] MEDS ORDERED: PIPERACILLIN/TAZOBACTAM 3.375 GM VIAL IVPB ONE ×2 (09:46→17:50)
[2020-05-08] MEDS ORDERED: PT OWN MED DRAWER 7, Y5N ONE ×2 (09:46→21:29)
[2020-05-08] MEDS ORDERED: DEXTROSE 5%-WATER - 50 ML IVPB ONE ×2 (09:47→17:50)
[2020-05-08] MEDS: diazePAM 5 MG TABLET PO SCH (09:59)
[2020-05-08] MEDS: PANTOPRAZOLE 20 MG TABLET PO SCH (09:59)
[2020-05-08] MEDS: DOXYCYCLINE HYCLATE 100 MG CAPSULE PO SCH ×2 (10:00→18:23)
[2020-05-08] MEDS ORDERED: PIPERACILLIN/TAZOB 3.375 GM 3.375 GM in DEXTROSE 5%-WATER - 50 ML IVPB SCH (10:00)
[2020-05-08] MEDS: ENOXAPARIN NA (PORCINE) 40 MG/0.4 ML DISP.SYRIN SQ SCH (10:00)
[2020-05-08] MEDS: LORATADINE 10 MG TABLET PO SCH (10:00)
[2020-05-08] MEDS: levETIRAcetam 500 MG/5 ML ORAL SOLUTION (UNIT-DOSE CUPS) PO SCH ×2 (10:00→22:25)
[2020-05-08] MEDS: CALCIUM 500MG/VIT-D 200 UNITS COMBO TABLET (FP) PO SCH ×2 (10:02→22:25)
[2020-05-08] MEDS: FAMOTIDINE 40 MG/5 ML ORAL SUSPENSION PO SCH ×2 (10:03→22:25)
[2020-05-08] MEDS: CHLORHEXIDINE GLUCONATE 0.12% 15ML CUP MM SCH ×2 (10:04→22:25)
[2020-05-08] MEDS: PIPERACILLIN/TAZOB 3.375 GM 3.375 GM in DEXTROSE 5%-WATER - 50 ML IVPB SCH ×2 (10:05→18:22)
--- NOTE | 2020-05-08 10:38 | PN ---
Progress Note, COCOA MILL OPERATOR - Note Progress Note: Selected Entries 05/06/20 05/06/20 05/06/20 11:58 15:00 17:59 Breakfast 50% Lunch 50% Supper 50% Temperature Pulse Rate Blood Pressure 05/07/20 05/07/20 05/07/20 01:00 05:00 10:00 Breakfast Lunch Supper Temperature 98.9 F 100.4 F H 98.9 F Pulse Rate 114 H 98 H 108 H Blood Pressure 134/72 113/70 127/71 Laboratory Tests 05/07/20 07:45 WBC 5.5 Selected Entries 05/07/20 05/07/20 05/07/20 01:00 05:00 10:00 Breakfast Diet Tolerated Supper Temperature 98.9 F 100.4 F H 98.9 F Pulse Rate 114 H 98 H 108 H Blood Pressure 134/72 113/70 127/71 05/07/20 05/07/20 05/07/20 15:57 18:00 23:34 Breakfast 50% Diet Tolerated Fair Well Supper 75% Temperature 99.7 F H 101 F H Pulse Rate 87 95 H 115 H Blood Pressure 92/59 L 107/58 L 95/58 L 05/07/20 05/08/20 05/08/20 23:40 02:41 05:11 Breakfast Diet Tolerated Supper Temperature 101.5 F H 98.9 F 98.5 F Pulse Rate 97 H Blood Pressure 146/58 L 05/08/20 10:06 Breakfast Diet Tolerated Supper Temperature 98.6 F Pulse Rate 98 H Blood Pressure 112/80 Laboratory Tests 05/07/20 05/08/20 05/08/20 05:54 06:04 08:09 WBC 7.1 POC Glucometer 80 88 On puree/honey on tsp CXR noted Per nursing, had fever 101.7 last night, informed resident. BC, UC, UA and chest X ray stat done. No respiratory distress. ID imp-Concern for aspiration Pt known to me from 2018 admission. Initially pt was quite weak, congested but improved. MBS on 06/30/18-Poor head control with aspiration risk if not positioned and stablized in neutral or flexed position. puree/honey thick on tsn, 1/2 tsp at a time,mouth care. Repeat MBS?
--- NOTE | 2020-05-08 14:30 | PN ---
Physical Exam: SUBJECTIVE: Patient seen and examined at bedside. No acute events overnight. had a tap water enema, 2 bowel movements. Patient is currently on RA, sat @ 93%. Patient had spike fever last night, rectal temp 101.5 OBJECTIVE: Vital Signs Period Temp Pulse Resp BP Sys/Ascencio Pulse Ox Last 24 Hr 98.5 F-101.5 F 87-115 18-20 92-146/58-80 90-112 GENERAL: The patient is awake, in no acute distress. LUNGS: Breath sounds equal, clear to auscultation bilaterally, no wheezes, no crackles, no accessory muscle use. HEART: Regular rate and rhythm, S1, S2 without murmur, rub or gallop. ABDOMEN: Soft, nontender, nondistended, normoactive bowel sounds, no guarding, no rebound, no hepatosplenomegaly, no masses. EXTREMITIES: 2+ pulses, warm, well-perfused, mild edema of R. hand. R. Hand multiple Blisters, healing, resolving Laboratory Results - last 24 hr 04/30/20 05/07/20 05/07/20 06:37 17:39 22:30 WBC RBC Hgb Hct MCV MCH MCHC RDW Plt Count MPV Absolute Neuts (auto) Neutrophils % Lymphocytes % Monocytes % Eosinophils % Basophils % Nucleated RBC % Sodium Potassium Chloride Carbon Dioxide Anion Gap BUN Creatinine Est GFR (CKD-EPI)AfAm Est GFR (CKD-EPI)NonAf POC Glucometer 92 96 Random Glucose Calcium Phosphorus Magnesium Total Bilirubin AST ALT Alkaline Phosphatase Total Protein Albumin Urine Color Urine Appearance Urine pH Ur Specific [place] Urine Protein Urine Glucose (UA) Urine Ketones Urine Blood Urine Nitrite Urine Bilirubin Urine Urobilinogen Ur Leukocyte Esterase Urine WBC (Auto) Urine RBC (Auto) Urine Casts (Auto) U Epithel Cells (Auto) U Sm Round Cell (Auto) Urine Bacteria (Auto) Hepatitis C Genotype 05/08/20 05/08/20 05/08/20 01:30 06:04 08:09 WBC 7.1 RBC 4.02 Hgb 11.9 Hct 35.9 MCV 89.4 MCH 29.7 MCHC 33.3 RDW 14.4 Plt Count 395 D MPV 7.6 Absolute Neuts (auto) 5.4 Neutrophils % 75.7 D Lymphocytes % 14.6 D Monocytes % 8.1 Eosinophils % 1.3 Basophils % 0.3 Nucleated RBC % 0 Sodium Potassium Chloride Carbon Dioxide Anion Gap BUN Creatinine Est GFR (CKD-EPI)AfAm Est GFR (CKD-EPI)NonAf POC Glucometer 88 Random Glucose Calcium Phosphorus Magnesium Total Bilirubin AST ALT Alkaline Phosphatase Total Protein Albumin Urine Color Yellow Urine Appearance Clear Urine pH 8.0 Ur Specific [place] 1.008 L Urine Protein Negative Urine Glucose (UA) Negative Urine Ketones Negative Urine Blood Negative Urine Nitrite Negative Urine Bilirubin Negative Urine Urobilinogen 0.2 Ur Leukocyte Esterase 2+ H Urine WBC (Auto) 314 Urine RBC (Auto) 5 Urine Casts (Auto) 3 U Epithel Cells (Auto) 3 U Sm Round Cell (Auto) 4 Urine Bacteria (Auto) 3426 Hepatitis C Genotype 05/08/20 08:09 WBC RBC Hgb Hct MCV MCH MCHC RDW Plt Count MPV Absolute Neuts (auto) Neutrophils % Lymphocytes % Monocytes % Eosinophils % Basophils % Nucleated RBC % Sodium 139 Potassium 4.0 Chloride 101 Carbon Dioxide 31 Anion Gap 7 L BUN 9.4 Creatinine 0.4 L Est GFR (CKD-EPI)AfAm 137.82 Est GFR (CKD-EPI)NonAf 118.91 POC Glucometer Random Glucose 82 Calcium 8.9 Phosphorus 3.7 Magnesium 2.2 Total Bilirubin 0.4 AST 28 ALT 37 Alkaline Phosphatase 140 H Total Protein 6.7 Albumin 2.9 L Urine Color Urine Appearance Urine pH Ur Specific [place] Urine Protein Urine Glucose (UA) Urine Ketones Urine Blood Urine Nitrite Urine Bilirubin Urine Urobilinogen Ur Leukocyte Esterase Urine WBC (Auto) Urine RBC (Auto) Urine Casts (Auto) U Epithel Cells (Auto) U Sm Round Cell (Auto) Urine Bacteria (Auto) Hepatitis C Genotype Active Medications Generic Name Dose Route Start Last Admin Trade Name Freq PRN Reason Stop Dose Admin Acetaminophen 600 mg 05/07/20 23:52 05/08/20 00:59 Tylenol Oral Solution - PO 600 mg ONCE PRN Administration FEVER Al Hydroxide/Mg Hydroxide 30 ml 05/05/20 17:43 Mylanta Oral Suspension - PO PRN PRN INDIGESTION Baclofen 10 mg 05/05/20 22:00 05/08/20 05:59 Lioresal - PO 10 mg TID DARWIN Administration Calcium Carbonate/Cholecalciferol 1 tab 05/05/20 22:00 05/08/20 10:02 Os-Hitesh 500+D - PO 1 tab BID DARWIN Administration Chlorhexidine Gluconate 15 ml 05/05/20 22:00 05/08/20 10:04 Peridex - MM 15 ml BID DARWIN Administration Diazepam 15 mg 05/05/20 22:00 05/08/20 09:59 Valium - PO 15 mg BID DARWIN Administration Doxycycline Hyclate 100 mg 05/06/20 18:00 05/08/20 10:00 Vibramycin - PO 100 mg BID@1000,1800 DARWIN Administration Enoxaparin Sodium 40 mg 05/08/20 10:00 05/08/20 10:00 Lovenox - SQ 40 mg DAILY DARWIN Administration Famotidine 20 mg 05/05/20 22:00 05/08/20 10:03 Pepcid PO 20 mg BID DARWIN Administration Piperacillin Sod/Tazobactam 50 mls @ 100 mls/hr 05/08/20 10:00 05/08/20 10:05 Sod 3.375 gm/ Dextrose IVPB Not Given Q8H-IV DARWIN Protocol Levetiracetam 500 mg 05/04/20 22:00 05/08/20 10:00 Keppra Oral Solution - PO 500 mg BID DARWIN Administration Loratadine 10 mg 05/06/20 10:00 05/08/20 10:00 Claritin - PO 10 mg DAILY DARWIN Administration Pantoprazole Sodium 20 mg 05/06/20 10:00 05/08/20 09:59 Protonix - PO 20 mg DAILY DARWIN Administration Senna 8.8 mg 04/30/20 22:00 05/07/20 22:20 Senna Oral Solution - PO 5 ml HS DARWIN Administration ASSESSMENT/PLAN: Ms. Marques is a 54 y/o F with a PMH of severe mental disability 2/2 cerebral palsy from [facility], quadriplegia, and chronic constipation presented to the ER on 04/29 for hypotension/hypoxia after oral fluid prepping for colonoscopy. #Sepsis 2/2 Aspiration pneumonitis - T 96.7-97.5; tachycardic on arrival; hypotensive in the ED; tachypneic on arrival lactate 2.1 - BLD cx negative x 2 - CXR 05/07: questionable infiltrate L base. - Spiking fevers at night 101.5 Tmax - Repeat CXR - progressive atelectasis/infiltrate L base. - Added Zosyn, as per ID - Speech therapy is on board, Dysphagia pureed diet - f/u Modified barium swallow study - Further dietary recommendations as per Speech Therapy. #Left hand blisters - Nursing staff endorses that patient had IV placed in that area few days prior to onset of blisters. Concern for IV infiltration. - Today, Blisters are decreasing and healing, Continue to monitor blisters and fluid status - continue to monitor v/s, Tmax 101.5 today - Continue with IV Zosyn #History of seizures - Continue oral Diazepam, Keppra as patient is now tolerating diet. - Seizure precautions #Constipation - As per nursing, patient has not had a BM for 3 days, Ordered Water fleet enema. - Continue Home meds, Lactulose if needed. - GI recommendations: colonoscopy as outpatient. #FEN - No standing fluids at this time - Continue to monitor electrolytes - Puree diet #DVT Prophylaxis -Lovenox 40mg subq daily Disposition -Continue to monitor in [place], Continue to monitor v/s patient can be d/c if temp is stable and patient can tolerate oxygen on RA Visit type - Emergency Visit Emergency Visit: Yes ED Registration Date: 04/29/20 Care time: The patient presented to the Emergency Department on the above date and was hospitalized for further evaluation of their emergent condition. - New Patient This patient is new to me today: Yes Date on this admission: 05/12/20 - Critical Care Critical Care patient: No - Discharge Referral Referred to [facility] Med P.C.: No ATTENDING PHYSICIAN STATEMENT I saw and evaluated the patient. I reviewed the resident's note and discussed the case with the resident. I agree with the resident's findings and plan as documented. SUBJECTIVE: OBJECTIVE: ASSESSMENT AND PLAN:
--- NOTE | 2020-05-08 17:07 | PN ---
Teaching Attending Note Name of Resident: Melody Starks ATTENDING PHYSICIAN STATEMENT I saw and evaluated the patient. I reviewed the resident's note and discussed the case with the resident. I agree with the resident's findings and plan as documented. SUBJECTIVE: Non-verbal, unable to participate in medical interview. OBJECTIVE: Appears comfortable. Febrile - Tmax 101.5, Hemodynamically stable. SpO2 93-95% RA Last Vital Signs Temp Pulse Resp BP Pulse Ox 99.3 F 124 H 20 145/92 95 05/08/20 14:00 05/08/20 14:00 05/08/20 14:00 05/08/20 14:00 05/08/20 14:00 Heart - S1, S2, RRR lungs - decreased air entry globally Abdomen - non-tender. Bowel Sounds normal. Extremities - Contractures UEs and LEs. Mild erythema and de-roofed blisters dorsum of L hand, no surrounding cellulitis. Laboratory Results - last 24 hr 04/30/20 05/07/20 05/07/20 06:37 17:39 22:30 WBC RBC Hgb Hct MCV MCH MCHC RDW Plt Count MPV Absolute Neuts (auto) Neutrophils % Lymphocytes % Monocytes % Eosinophils % Basophils % Nucleated RBC % Sodium Potassium Chloride Carbon Dioxide Anion Gap BUN Creatinine Est GFR (CKD-EPI)AfAm Est GFR (CKD-EPI)NonAf POC Glucometer 92 96 Random Glucose Calcium Phosphorus Magnesium Total Bilirubin AST ALT Alkaline Phosphatase Total Protein Albumin Urine Color Urine Appearance Urine pH Ur Specific [place] Urine Protein Urine Glucose (UA) Urine Ketones Urine Blood Urine Nitrite Urine Bilirubin Urine Urobilinogen Ur Leukocyte Esterase Urine WBC (Auto) Urine RBC (Auto) Urine Casts (Auto) U Epithel Cells (Auto) U Sm Round Cell (Auto) Urine Bacteria (Auto) Hepatitis C Genotype 05/08/20 05/08/20 05/08/20 01:30 06:04 08:09 WBC 7.1 RBC 4.02 Hgb 11.9 Hct 35.9 MCV 89.4 MCH 29.7 MCHC 33.3 RDW 14.4 Plt Count 395 D MPV 7.6 Absolute Neuts (auto) 5.4 Neutrophils % 75.7 D Lymphocytes % 14.6 D Monocytes % 8.1 Eosinophils % 1.3 Basophils % 0.3 Nucleated RBC % 0 Sodium Potassium Chloride Carbon Dioxide Anion Gap BUN Creatinine Est GFR (CKD-EPI)AfAm Est GFR (CKD-EPI)NonAf POC Glucometer 88 Random Glucose Calcium Phosphorus Magnesium Total Bilirubin AST ALT Alkaline Phosphatase Total Protein Albumin Urine Color Yellow Urine Appearance Clear Urine pH 8.0 Ur Specific [place] 1.008 L Urine Protein Negative Urine Glucose (UA) Negative Urine Ketones Negative Urine Blood Negative Urine Nitrite Negative Urine Bilirubin Negative Urine Urobilinogen 0.2 Ur Leukocyte Esterase 2+ H Urine WBC (Auto) 314 Urine RBC (Auto) 5 Urine Casts (Auto) 3 U Epithel Cells (Auto) 3 U Sm Round Cell (Auto) 4 Urine Bacteria (Auto) 3426 Hepatitis C Genotype 05/08/20 08:09 WBC RBC Hgb Hct MCV MCH MCHC RDW Plt Count MPV Absolute Neuts (auto) Neutrophils % Lymphocytes % Monocytes % Eosinophils % Basophils % Nucleated RBC % Sodium 139 Potassium 4.0 Chloride 101 Carbon Dioxide 31 Anion Gap 7 L BUN 9.4 Creatinine 0.4 L Est GFR (CKD-EPI)AfAm 137.82 Est GFR (CKD-EPI)NonAf 118.91 POC Glucometer Random Glucose 82 Calcium 8.9 Phosphorus 3.7 Magnesium 2.2 Total Bilirubin 0.4 AST 28 ALT 37 Alkaline Phosphatase 140 H Total Protein 6.7 Albumin 2.9 L Urine Color Urine Appearance Urine pH Ur Specific [place] Urine Protein Urine Glucose (UA) Urine Ketones Urine Blood Urine Nitrite Urine Bilirubin Urine Urobilinogen Ur Leukocyte Esterase Urine WBC (Auto) Urine RBC (Auto) Urine Casts (Auto) U Epithel Cells (Auto) U Sm Round Cell (Auto) Urine Bacteria (Auto) Hepatitis C Genotype Current Medications Generic Name Dose Route Start Last Admin Trade Name Freq PRN Reason Stop Dose Admin Acetaminophen 600 mg 05/07/20 23:52 05/08/20 00:59 Tylenol Oral Solution - PO 600 mg ONCE PRN Administration FEVER Al Hydroxide/Mg Hydroxide 30 ml 05/05/20 17:43 Mylanta Oral Suspension - PO PRN PRN INDIGESTION Baclofen 10 mg 05/05/20 22:00 05/08/20 05:59 Lioresal - PO 10 mg TID DARWIN Administration Calcium Carbonate/Cholecalciferol 1 tab 05/05/20 22:00 05/08/20 10:02 Os-Hitesh 500+D - PO 1 tab BID DARWIN Administration Chlorhexidine Gluconate 15 ml 05/05/20 22:00 05/08/20 10:04 Peridex - MM 15 ml BID DARWIN Administration Diazepam 15 mg 05/05/20 22:00 05/08/20 09:59 Valium - PO 15 mg BID DARWIN Administration Doxycycline Hyclate 100 mg 05/06/20 18:00 05/08/20 10:00 Vibramycin - PO 100 mg BID@1000,1800 DARWIN Administration Enoxaparin Sodium 40 mg 05/08/20 10:00 05/08/20 10:00 Lovenox - SQ 40 mg DAILY DARWIN Administration Famotidine 20 mg 05/05/20 22:00 05/08/20 10:03 Pepcid PO 20 mg BID DARWIN Administration Piperacillin Sod/Tazobactam 50 mls @ 100 mls/hr 05/08/20 10:00 05/08/20 10:05 Sod 3.375 gm/ Dextrose IVPB Not Given Q8H-IV DARWIN Protocol Levetiracetam 500 mg 05/04/20 22:00 05/08/20 10:00 Keppra Oral Solution - PO 500 mg BID DARWIN Administration Loratadine 10 mg 05/06/20 10:00 05/08/20 10:00 Claritin - PO 10 mg DAILY DARWIN Administration Pantoprazole Sodium 20 mg 05/06/20 10:00 05/08/20 09:59 Protonix - PO 20 mg DAILY DARWIN Administration Senna 8.8 mg 04/30/20 22:00 05/07/20 22:20 Senna Oral Solution - PO 5 ml HS DARWIN Administration Home Medications Medication Instructions Recorded Diazepam Rectal Gel [Diastat 10 mg RC PRN PRN 07/31/19 *Rectal Gel*] Diazepam [Valium] 15 mg PO BID 07/31/19 Baclofen 10 mg PO TID 04/30/20 Calcium Carbonate/Vitamin D3 1 each PO BID 04/30/20 [Oystercal-D 500 mg-400 Unit Tb] Chlorhexidine Gluconate [Peridex -] 15 ml MM BID 04/30/20 Docusate Sodium [Colace] 100 mg PO BID 04/30/20 Loratadine [Claritin] 10 mg PO DAILY 04/30/20 Mag Hydrox/Al Hydrox/Simeth 30 ml PO PRN PRN 04/30/20 [Mylanta Oral Suspension -] Omeprazole 20 mg PO DAILY 04/30/20 Ranitidine Oral Solution [Zantac] 150 mg PO BID 04/30/20 levETIRAcetam [Keppra -] 500 mg PO BID 04/30/20 ASSESSMENT AND PLAN: 54 year old female [place] resident with severe developmental delay secondary to Cerebral Palsy, Seizure disorder, presented with hypoxia and hypotension after oral bowel prep for colonoscopy for chronic constipation. 1. Acute Respiratory Failure and Sepsis secondary to Aspiration Pneumonia Febrile overnight Repeat CXR - progressive atelectasis/infiltrate L base. Completed Abx course but still febrile, placed on IV Zosyn again. ?repeat Aspiration Repeat cultures pending. On Dysphagia pureed diet - repeat MBS recommended by Speech therapy. Further dietary recommendations as per Speech Therapy. 2. L Hand cellulitis with blisters sec to IV infiltration Fever today - Tmax 101.5 Oral Doxy changed to IV Zosyn - ID following. 3. Seizure Disorder Contiue Keppra. 4. Cerebral Palsy - continue Baclofen, Valium 5. GERD - Continue PPI/H2 antoni DVT Px - Lovenox SQ
[2020-05-08] MEDS: SENNOSIDES 8.8 MG/5 ML BULK BOTTLE PO SCH (22:24)
[2020-05-09] MEDS ORDERED: PIPERACILLIN/TAZOBACTAM 3.375 GM VIAL IVPB ONE ×3 (02:09→17:44)
[2020-05-09] MEDS ORDERED: DEXTROSE 5%-WATER - 50 ML IVPB ONE ×3 (02:09→17:44)
[2020-05-09] MEDS: PIPERACILLIN/TAZOB 3.375 GM 3.375 GM in DEXTROSE 5%-WATER - 50 ML IVPB SCH ×3 (02:14→17:50)
[2020-05-09] MEDS ORDERED: INSULIN (NOVOLOG) ASPART 100 UNITS/ML 10ML VIAL ONE (05:42)
[2020-05-09] MEDS: BACLOFEN 10 MG TABLET (FP) PO SCH ×3 (06:08→21:12)
[2020-05-09 08:24] LABS: HEMATOCRIT 37.5 % (32.4-45.2); HEMOGLOBIN 12.5 GM/dL (10.7-15.3); MCH 30.4 pg (25.7-33.7); MCHC 33.3 g/dl (32.0-36.0); MEAN CELL VOLUME 91.1 fl (80-96); MEAN PLT VOLUME 8.4 fl (7.5-11.1); PLATELET COUNT 331 K/MM3 (134-434); RBC 4.12 M/mm3 (3.60-5.2); RDW 14.2 % (11.6-15.6); WHITE BLOOD COUNT 7.3 K/mm3 (4.0-10.0)
[2020-05-09 08:54] LABS: ALBUMIN 2.7 g/dl (3.4-5.0); BILIRUBIN,TOTAL 0.7 mg/dL (0.2-1); BLOOD UREA NITROGEN 9.6 mg/dL (7-18); CALCIUM 8.3 mg/dL (8.5-10.1); CREATININE 0.6 mg/dL (0.55-1.3); PHOSPHOROUS 3.6 mg/dL (2.5-4.9); POTASSIUM 4.1 mmol/L (3.5-5.1); TOT PROT 6.1 g/dl (6.4-8.2)
[2020-05-09 09:51] LABS: ANISOCYTOSIS 0; MACROCYTOSIS 0; PLATELET ESTIMATE NORMAL
[2020-05-09] MEDS ORDERED: PT OWN MED DRAWER 7, Y5N ONE (10:41)
--- NOTE | 2020-05-09 10:59 | PN ---
Progress Note, PRACTICE CONSULTANT - Note Progress Note: Selected Entries 05/07/20 05/07/20 05/07/20 01:00 05:00 10:00 Diet Tolerated Lunch Supper Temperature 98.9 F 100.4 F H 98.9 F Pulse Rate 114 H 98 H 108 H Blood Pressure 05/07/20 05/07/20 05/07/20 15:57 18:00 23:34 Diet Tolerated Lunch Supper Temperature 99.7 F H 101 F H Pulse Rate 87 95 H 115 H Blood Pressure 05/07/20 05/08/20 05/08/20 23:40 02:41 05:11 Diet Tolerated Lunch Supper Temperature 101.5 F H 98.9 F 98.5 F Pulse Rate 97 H Blood Pressure 05/08/20 05/08/20 05/08/20 10:06 14:00 18:00 Diet Tolerated Well Lunch 50% Supper 0 Temperature 98.6 F 99.3 F 99.7 F H Pulse Rate 98 H 124 H 114 H Blood Pressure 05/08/20 05/08/20 05/09/20 21:03 22:59 02:00 Diet Tolerated Well Lunch Supper 75% Temperature 100 F H 100.2 F H Pulse Rate 110 H Blood Pressure 116/86 05/09/20 05/09/20 06:00 06:24 Diet Tolerated Lunch Supper Temperature 99.4 F 99.9 F H Pulse Rate 94 H Blood Pressure 114/60 Laboratory Tests 05/09/20 07:49 WBC 7.3 MBS-risk of aspiration but not demonstrated - Recommendations Diet Consistency: Dysphagia Pureed Medication Administration: Crushed with applesauce Liquids: Honey Thick (on tsp) Supplement: Magic Cup, Ensure Pudding Small Bites, Chin Tuck/Down, Safe Rate, 1/2 tsp. at a time, Elevate HOB during feed
[2020-05-09] MEDS: DOXYCYCLINE HYCLATE 100 MG CAPSULE PO SCH (11:04)
[2020-05-09] MEDS: LORATADINE 10 MG TABLET PO SCH (11:04)
[2020-05-09] MEDS: levETIRAcetam 500 MG/5 ML ORAL SOLUTION (UNIT-DOSE CUPS) PO SCH ×2 (11:04→21:13)
[2020-05-09] MEDS: CALCIUM 500MG/VIT-D 200 UNITS COMBO TABLET (FP) PO SCH ×2 (11:04→21:13)
[2020-05-09] MEDS: ENOXAPARIN NA (PORCINE) 40 MG/0.4 ML DISP.SYRIN SQ SCH (11:04)
[2020-05-09] MEDS: FAMOTIDINE 40 MG/5 ML ORAL SUSPENSION PO SCH ×2 (11:05→21:13)
[2020-05-09] MEDS: CHLORHEXIDINE GLUCONATE 0.12% 15ML CUP MM SCH ×2 (11:06→21:13)
[2020-05-09] MEDS: PANTOPRAZOLE 20 MG TABLET PO SCH (12:08)
--- NOTE | 2020-05-09 13:19 | PN ---
Physical Exam: SUBJECTIVE: Patient seen and examined at bedside, no acute events overnight. Tmax 100.2. Saturating at 95% on RA. OBJECTIVE: Vital Signs Period Temp Pulse Resp BP Sys/Ascencio Pulse Ox Last 24 Hr 99.3 F-100.2 F 94-124 20-20 114-145/60-92 93-100 GENERAL: The patient is awake, in no acute distress. LUNGS: Breath sounds equal, clear to auscultation bilaterally, no wheezes, no crackles, no accessory muscle use. HEART: Regular rate and rhythm, S1, S2 without murmur, rub or gallop. ABDOMEN: Soft, nontender, nondistended, normoactive bowel sounds, no guarding, no rebound, no hepatosplenomegaly, no masses. EXTREMITIES: 2+ pulses, warm, well-perfused, mild edema of R. hand. R. Hand multiple Blisters, healing, resolving Laboratory Results - last 24 hr 05/08/20 05/09/20 05/09/20 22:23 05:29 07:49 WBC 7.3 RBC 4.12 Hgb 12.5 Hct 37.5 MCV 91.1 MCH 30.4 MCHC 33.3 RDW 14.2 Plt Count 331 MPV 8.4 D Neutrophils % No Result Required. Neutrophils % (Manual) 65.3 Band Neutrophils % 0.0 Lymphocytes % No Result Required. Lymphocytes % (Manual) 25.5 D Monocytes % (Manual) 5 Eosinophils % (Manual) 3.1 D Basophils % (Manual) 0.0 Myelocytes % (Man) 1 D Promyelocytes % (Man) 0 Blast Cells % (Manual) 0 Nucleated RBC % 0 Metamyelocytes 0 Hypochromia 0 Platelet Estimate Normal Polychromasia 0 Poikilocytosis 0 Anisocytosis 0 Microcytosis 0 Macrocytosis 0 Sodium Potassium Chloride Carbon Dioxide Anion Gap BUN Creatinine Est GFR (CKD-EPI)AfAm Est GFR (CKD-EPI)NonAf POC Glucometer 116 90 Random Glucose Calcium Phosphorus Magnesium Total Bilirubin AST ALT Alkaline Phosphatase Total Protein Albumin 05/09/20 07:49 WBC RBC Hgb Hct MCV MCH MCHC RDW Plt Count MPV Neutrophils % Neutrophils % (Manual) Band Neutrophils % Lymphocytes % Lymphocytes % (Manual) Monocytes % (Manual) Eosinophils % (Manual) Basophils % (Manual) Myelocytes % (Man) Promyelocytes % (Man) Blast Cells % (Manual) Nucleated RBC % Metamyelocytes Hypochromia Platelet Estimate Polychromasia Poikilocytosis Anisocytosis Microcytosis Macrocytosis Sodium 140 Potassium 4.1 Chloride 104 Carbon Dioxide 28 Anion Gap 8 BUN 9.6 Creatinine 0.6 Est GFR (CKD-EPI)AfAm 120.61 Est GFR (CKD-EPI)NonAf 104.06 POC Glucometer Random Glucose 85 Calcium 8.3 L Phosphorus 3.6 Magnesium 2.0 Total Bilirubin 0.7 AST 24 ALT 30 Alkaline Phosphatase 119 H Total Protein 6.1 L Albumin 2.7 L Active Medications Generic Name Dose Route Start Last Admin Trade Name Freq PRN Reason Stop Dose Admin Acetaminophen 600 mg 05/07/20 23:52 05/08/20 00:59 Tylenol Oral Solution - PO 600 mg ONCE PRN Administration FEVER Al Hydroxide/Mg Hydroxide 30 ml 05/05/20 17:43 Mylanta Oral Suspension - PO PRN PRN INDIGESTION Baclofen 10 mg 05/05/20 22:00 05/09/20 06:08 Lioresal - PO 10 mg TID DARWIN Administration Calcium Carbonate/Cholecalciferol 1 tab 05/05/20 22:00 05/09/20 11:04 Os-Hitesh 500+D - PO 1 tab BID DARWIN Administration Chlorhexidine Gluconate 15 ml 05/05/20 22:00 05/09/20 11:06 Peridex - MM 15 ml BID DARWIN Administration Doxycycline Hyclate 100 mg 05/06/20 18:00 05/09/20 11:04 Vibramycin - PO 100 mg BID@1000,1800 DARWIN Administration Enoxaparin Sodium 40 mg 05/08/20 10:00 05/09/20 11:04 Lovenox - SQ 40 mg DAILY DARWIN Administration Famotidine 20 mg 05/05/20 22:00 05/09/20 11:05 Pepcid PO 20 mg BID DARWIN Administration Piperacillin Sod/Tazobactam 50 mls @ 100 mls/hr 05/08/20 10:00 05/09/20 11:03 Sod 3.375 gm/ Dextrose IVPB 100 mls/hr Q8H-IV DARWIN Administration Protocol Levetiracetam 500 mg 05/04/20 22:00 05/09/20 11:04 Keppra Oral Solution - PO 500 mg BID DARWIN Administration Loratadine 10 mg 05/06/20 10:00 05/09/20 11:04 Claritin - PO 10 mg DAILY DARWIN Administration Pantoprazole Sodium 20 mg 05/06/20 10:00 05/09/20 12:08 Protonix - PO Not Given DAILY DARWIN Senna 8.8 mg 04/30/20 22:00 05/08/20 22:24 Senna Oral Solution - PO 5 ml HS DARWIN Administration ASSESSMENT/PLAN: Ms. Marques is a 54 y/o F with a PMH of severe mental disability 2/[address] [facility], quadriplegia, and chronic constipation presented to the ER on 04/29 for hypotension/hypoxia after oral fluid prepping for colonoscopy. #Sepsis 2/2 Aspiration pneumonitis - T 96.7-97.5; tachycardic on arrival; hypotensive in the ED; tachypneic on arrival lactate 2.1 - BLD cx negative x 2 - Spiking fevers at night 101.5 Tmax on 05/07, resolving, Tmx today 100.2 - Continue Zosyn - Speech therapy is on board, Dysphagia pureed diet - Modified barium swallow study: risk of aspiration but not demonstrated - Further dietary recommendations as per Speech Therapy. #UTI - Ua 2+ LE(05/08) - Ucx positive for Proteus species, awaiting final Urine Cx ID and Sens. - Currently on Antibiotics: Zosyn + PO Doxycycline #Left hand blisters - 2/2 IV infiltration. - Blisters have decreased in numbers and are healing. swelling has also decreased. Continue to monitor blisters and fluid status - continue to monitor v/s, Tmax 100.2 today - Continue with IV Zosyn + PO Doxycycline #History of seizures - Continue oral Diazepam, Keppra as patient is now tolerating diet. - Seizure precautions in place #Constipation - Continue Home meds, Lactulose if needed. - GI recommendations: colonoscopy as outpatient. #FEN - No standing fluids at this time - Continue to monitor electrolytes - Puree diet #DVT Prophylaxis -Lovenox 40mg subq daily Disposition -Continue to monitor in [place], Continue to monitor v/s patient can be d/c if temp is stable and patient can tolerate oxygen on RA Visit type - Emergency Visit Emergency Visit: Yes ED Registration Date: 04/29/20 Care time: The patient presented to the Emergency Department on the above date and was hospitalized for further evaluation of their emergent condition. - New Patient This patient is new to me today: Yes Date on this admission: 05/12/20 - Critical Care Critical Care patient: No - Discharge Referral Referred to [facility] Med P.C.: No ATTENDING PHYSICIAN STATEMENT I saw and evaluated the patient. I reviewed the resident's note and discussed the case with the resident. I agree with the resident's findings and plan as documented. SUBJECTIVE: OBJECTIVE: ASSESSMENT AND PLAN:
--- NOTE | 2020-05-09 13:53 | PN ---
Progress Note, Physician History of Present Illness: still spiking fevers urine cx results noted - Current Medication List Current Medications: Active Medications Acetaminophen (Tylenol Oral Solution -) 600 mg PO ONCE PRN PRN Reason: FEVER Last Admin: 05/08/20 00:59 Dose: 600 mg Documented by: Al Hydroxide/Mg Hydroxide (Mylanta Oral Suspension -) 30 ml PO PRN PRN PRN Reason: INDIGESTION Baclofen (Lioresal -) 10 mg PO TID [facility] Last Admin: 05/09/20 06:08 Dose: 10 mg Documented by: Calcium Carbonate/Cholecalciferol (Os-Hitesh 500+D -) 1 tab PO BID [facility] Last Admin: 05/09/20 11:04 Dose: 1 tab Documented by: Chlorhexidine Gluconate (Peridex -) 15 ml MM BID [facility] Last Admin: 05/09/20 11:06 Dose: 15 ml Documented by: Doxycycline Hyclate (Vibramycin -) 100 mg PO BID@1000,1800 [facility] Last Admin: 05/09/20 11:04 Dose: 100 mg Documented by: Enoxaparin Sodium (Lovenox -) 40 mg SQ DAILY [facility] Last Admin: 05/09/20 11:04 Dose: 40 mg Documented by: Famotidine (Pepcid) 20 mg PO BID [facility] Last Admin: 05/09/20 11:05 Dose: 20 mg Documented by: Piperacillin Sod/Tazobactam (Sod 3.375 gm/ Dextrose) 50 mls @ 100 mls/hr IVPB Q8H-IV [facility]; Protocol Last Admin: 05/09/20 11:03 Dose: 100 mls/hr Documented by: Levetiracetam (Keppra Oral Solution -) 500 mg PO BID [facility] Last Admin: 05/09/20 11:04 Dose: 500 mg Documented by: Loratadine (Claritin -) 10 mg PO DAILY [facility] Last Admin: 05/09/20 11:04 Dose: 10 mg Documented by: Pantoprazole Sodium (Protonix -) 20 mg PO DAILY [facility] Last Admin: 05/09/20 12:08 Dose: Not Given Documented by: Senna (Senna Oral Solution -) 8.8 mg PO HS [facility] Last Admin: 05/08/20 22:24 Dose: 5 ml Documented by: - Objective Vital Signs: Vital Signs Temperature 99.9 F H 05/09/20 06:24 Pulse Rate 94 H 05/09/20 06:00 Respiratory Rate 20 05/09/20 06:00 Blood Pressure 114/60 05/09/20 06:00 O2 Sat by Pulse Oximetry (%) 98 05/09/20 06:00 Constitutional: Yes: Calm, Other Cardiovascular: Yes: S1, S2 Respiratory: Yes: Regular, CTA Bilaterally Gastrointestinal: Yes: Normal Bowel Sounds, Soft Musculoskeletal: Yes: WNL Extremities: Yes: Other (contracted) Neurological: Yes: Alert, Other Psychiatric: Yes: Other Labs: CBC, BMP 05/09/20 07:49 05/09/20 07:49 INR, PTT INR 0.90 (0.83-1.09) 04/29/20 16:00 Assessment/Plan 54 yo F, nonverbal at baseline, from [facility] with PMH of profound mental retardation, cerebral palsy with spastic quadriplegia, epilepsy (since 1994) and chronic constipation presents to to ER for hypoxia. Pt being admitted for sepsis likely 2/2 aspiration pneumonia. #Sepsis #Transaminitis #Chronic Constipation #Hypochloremia #Hx of Epilepsy uti plan urine cx results noted continue abx
[2020-05-09] MEDS ORDERED: ACETAMINOPHEN 650 MG/20.3 ML ORAL SOLUTION (CUPS) PO PRN (16:13)
--- NOTE | 2020-05-09 16:17 | PN ---
Teaching Attending Note Name of Resident: Melody Starks ATTENDING PHYSICIAN STATEMENT I saw and evaluated the patient. I reviewed the resident's note and discussed the case with the resident. I agree with the resident's findings and plan as documented. SUBJECTIVE: Non-verbal, unable to participate in medical interview. OBJECTIVE: Appears comfortable. Febrile - Tmax 99.3, Hemodynamically stable. SpO2 93% RA Last Vital Signs Temp Pulse Resp BP Pulse Ox 98.9 F 107 H 20 111/75 93 L 05/09/20 14:05/09/20 14:05/09/20 14:05/09/20 14:05/09/20 14:00 Heart - S1, S2, mild tachy lungs - decreased air entry globally Abdomen - non-tender. Bowel Sounds normal. Extremities - Contractures UEs and LEs. Mild erythema and de-roofed blisters dorsum of L hand, mild edema, no surrounding cellulitis. Laboratory Results - last 24 hr 05/08/20 05/09/20 05/09/20 22:23 05:29 07:49 WBC 7.3 RBC 4.12 Hgb 12.5 Hct 37.5 MCV 91.1 MCH 30.4 MCHC 33.3 RDW 14.2 Plt Count 331 MPV 8.4 D Neutrophils % No Result Required. Neutrophils % (Manual) 65.3 Band Neutrophils % 0.0 Lymphocytes % No Result Required. Lymphocytes % (Manual) 25.5 D Monocytes % (Manual) 5 Eosinophils % (Manual) 3.1 D Basophils % (Manual) 0.0 Myelocytes % (Man) 1 D Promyelocytes % (Man) 0 Blast Cells % (Manual) 0 Nucleated RBC % 0 Metamyelocytes 0 Hypochromia 0 Platelet Estimate Normal Polychromasia 0 Poikilocytosis 0 Anisocytosis 0 Microcytosis 0 Macrocytosis 0 Sodium Potassium Chloride Carbon Dioxide Anion Gap BUN Creatinine Est GFR (CKD-EPI)AfAm Est GFR (CKD-EPI)NonAf POC Glucometer 116 90 Random Glucose Calcium Phosphorus Magnesium Total Bilirubin AST ALT Alkaline Phosphatase Total Protein Albumin 05/09/20 07:49 WBC RBC Hgb Hct MCV MCH MCHC RDW Plt Count MPV Neutrophils % Neutrophils % (Manual) Band Neutrophils % Lymphocytes % Lymphocytes % (Manual) Monocytes % (Manual) Eosinophils % (Manual) Basophils % (Manual) Myelocytes % (Man) Promyelocytes % (Man) Blast Cells % (Manual) Nucleated RBC % Metamyelocytes Hypochromia Platelet Estimate Polychromasia Poikilocytosis Anisocytosis Microcytosis Macrocytosis Sodium 140 Potassium 4.1 Chloride 104 Carbon Dioxide 28 Anion Gap 8 BUN 9.6 Creatinine 0.6 Est GFR (CKD-EPI)AfAm 120.61 Est GFR (CKD-EPI)NonAf 104.06 POC Glucometer Random Glucose 85 Calcium 8.3 L Phosphorus 3.6 Magnesium 2.0 Total Bilirubin 0.7 AST 24 ALT 30 Alkaline Phosphatase 119 H Total Protein 6.1 L Albumin 2.7 L Current Medications Generic Name Dose Route Start Last Admin Trade Name Freq PRN Reason Stop Dose Admin Acetaminophen 600 mg 05/07/20 23:52 05/08/20 00:59 Tylenol Oral Solution - PO 600 mg ONCE PRN Administration FEVER Al Hydroxide/Mg Hydroxide 30 ml 05/05/20 17:43 Mylanta Oral Suspension - PO PRN PRN INDIGESTION Baclofen 10 mg 05/05/20 22:00 05/09/20 15:50 Lioresal - PO 10 mg TID [facility] Administration Calcium Carbonate/Cholecalciferol 1 tab 05/05/20 22:00 05/09/20 11:04 Os-Hitesh 500+D - PO 1 tab BID [facility] Administration Chlorhexidine Gluconate 15 ml 05/05/20 22:00 05/09/20 11:06 Peridex - MM 15 ml BID [facility] Administration Doxycycline Hyclate 100 mg 05/06/20 18:00 05/09/20 11:04 Vibramycin - PO 100 mg BID@1000,1800 [facility] Administration Enoxaparin Sodium 40 mg 05/08/20 10:00 05/09/20 11:04 Lovenox - SQ 40 mg DAILY [facility] Administration Famotidine 20 mg 05/05/20 22:00 05/09/20 11:05 Pepcid PO 20 mg BID [facility] Administration Piperacillin Sod/Tazobactam 50 mls @ 100 mls/hr 05/08/20 10:00 05/09/20 11:03 Sod 3.375 gm/ Dextrose IVPB 100 mls/hr Q8H-IV [facility] Administration Protocol Levetiracetam 500 mg 05/04/20 22:00 05/09/20 11:04 Keppra Oral Solution - PO 500 mg BID [facility] Administration Loratadine 10 mg 05/06/20 10:00 05/09/20 11:04 Claritin - PO 10 mg DAILY [facility] Administration Pantoprazole Sodium 20 mg 05/06/20 10:00 05/09/20 12:08 Protonix - PO Not Given DAILY [facility] Senna 8.8 mg 04/30/20 22:00 05/08/20 22:24 Senna Oral Solution - PO 5 ml HS [facility] Administration Home Medications Medication Instructions Recorded Diazepam Rectal Gel [Diastat 10 mg RC PRN PRN 07/31/19 *Rectal Gel*] Diazepam [Valium] 15 mg PO BID 07/31/19 Baclofen 10 mg PO TID 04/30/20 Calcium Carbonate/Vitamin D3 1 each PO BID 04/30/20 [Oystercal-D 500 mg-400 Unit Tb] Chlorhexidine Gluconate [Peridex -] 15 ml MM BID 04/30/20 Docusate Sodium [Colace] 100 mg PO BID 04/30/20 Loratadine [Claritin] 10 mg PO DAILY 04/30/20 Mag Hydrox/Al Hydrox/Simeth 30 ml PO PRN PRN 04/30/20 [Mylanta Oral Suspension -] Omeprazole 20 mg PO DAILY 04/30/20 Ranitidine Oral Solution [Zantac] 150 mg PO BID 04/30/20 levETIRAcetam [Keppra -] 500 mg PO BID 04/30/20 ASSESSMENT AND PLAN: 54 year old female [place] resident with severe developmental delay secondary to Cerebral Palsy, Seizure disorder, presented with hypoxia and hypotension after oral bowel prep for colonoscopy for chronic constipation. 1. Acute Respiratory Failure and Sepsis secondary to Aspiration Pneumonia + UTI Tmax overnight 100.2 Repeat CXR - progressive atelectasis/infiltrate L base. Urine Cx - Proteus Completed initial Abx course then transitioned to Doxy for cellulitis - but placed on IV Zosyn subsequently due to further fevers ?due to UTI Awaiting final Urine Cx ID and Sens. On Dysphagia pureed diet - repeat MBS recommended by Speech therapy shows no aspiration. 2. L Hand cellulitis with blisters sec to IV infiltration - improving Continue IV Zosyn - ID following. 3. Seizure Disorder - Contiue Keppra. 4. Cerebral Palsy - continue Baclofen, Valium 5. GERD - Continue PPI/H2 antoni DVT Px - Lovenox SQ
[2020-05-09] MEDS: SENNOSIDES 8.8 MG/5 ML BULK BOTTLE PO SCH (21:13)
[2020-05-10] MEDS ORDERED: PIPERACILLIN/TAZOBACTAM 3.375 GM VIAL IVPB ONE ×3 (01:07→16:34)
[2020-05-10] MEDS ORDERED: DEXTROSE 5%-WATER - 50 ML IVPB ONE ×3 (01:07→16:34)
[2020-05-10] MEDS: PIPERACILLIN/TAZOB 3.375 GM 3.375 GM in DEXTROSE 5%-WATER - 50 ML IVPB SCH ×3 (02:19→17:22)
[2020-05-10] MEDS: BACLOFEN 10 MG TABLET (FP) PO SCH ×3 (06:03→21:25)
[2020-05-10 09:31] LABS: BASO % 1.3 % (0-2.0); EOS % 1.1 % (0-4.5); HEMATOCRIT 36.6 % (32.4-45.2); HEMOGLOBIN 12.4 GM/dL (10.7-15.3); LYMPH % 14.7 % (8-40); MCH 30.3 pg (25.7-33.7); MCHC 33.8 g/dl (32.0-36.0); MEAN CELL VOLUME 89.6 fl (80-96); MEAN PLT VOLUME 7.1 fl (7.5-11.1); MONO % 7.6 % (3.8-10.2); NEUT % 75.3 % (42.8-82.8); PLATELET COUNT 522 K/MM3 (134-434); RBC 4.08 M/mm3 (3.60-5.2); RDW 14.5 % (11.6-15.6); WHITE BLOOD COUNT 9.6 K/mm3 (4.0-10.0)
[2020-05-10] MEDS: ENOXAPARIN NA (PORCINE) 40 MG/0.4 ML DISP.SYRIN SQ SCH (09:38)
[2020-05-10] MEDS: levETIRAcetam 500 MG/5 ML ORAL SOLUTION (UNIT-DOSE CUPS) PO SCH ×2 (09:38→21:25)
[2020-05-10] MEDS: LORATADINE 10 MG TABLET PO SCH (09:38)
[2020-05-10] MEDS: FAMOTIDINE 40 MG/5 ML ORAL SUSPENSION PO SCH ×2 (09:39→21:25)
[2020-05-10] MEDS: CHLORHEXIDINE GLUCONATE 0.12% 15ML CUP MM SCH ×2 (09:40→21:25)
[2020-05-10] MEDS: CALCIUM 500MG/VIT-D 200 UNITS COMBO TABLET (FP) PO SCH ×2 (09:40→21:25)
[2020-05-10 10:05] LABS: ALBUMIN 2.9 g/dl (3.4-5.0); BILIRUBIN,TOTAL 0.6 mg/dL (0.2-1); BLOOD UREA NITROGEN 8.6 mg/dL (7-18); CALCIUM 8.7 mg/dL (8.5-10.1); CREATININE 0.6 mg/dL (0.55-1.3); PHOSPHOROUS 3.5 mg/dL (2.5-4.9); POTASSIUM 3.9 mmol/L (3.5-5.1); TOT PROT 6.9 g/dl (6.4-8.2)
--- NOTE | 2020-05-10 10:21 | PN ---
Progress Note, Physician History of Present Illness: stable still with fevers low grade - Current Medication List Current Medications: Active Medications Acetaminophen (Tylenol Oral Solution -) 600 mg PO Q6H PRN PRN Reason: FEVER Al Hydroxide/Mg Hydroxide (Mylanta Oral Suspension -) 30 ml PO PRN PRN PRN Reason: INDIGESTION Baclofen (Lioresal -) 10 mg PO TID [facility] Last Admin: 05/10/20 06:03 Dose: 10 mg Documented by: Calcium Carbonate/Cholecalciferol (Os-Hitesh 500+D -) 1 tab PO BID [facility] Last Admin: 05/10/20 09:40 Dose: 1 tab Documented by: Chlorhexidine Gluconate (Peridex -) 15 ml MM BID [facility] Last Admin: 05/10/20 09:40 Dose: 15 ml Documented by: Enoxaparin Sodium (Lovenox -) 40 mg SQ DAILY [facility] Last Admin: 05/10/20 09:38 Dose: 40 mg Documented by: Famotidine (Pepcid) 20 mg PO BID [facility] Last Admin: 05/10/20 09:39 Dose: 20 mg Documented by: Piperacillin Sod/Tazobactam (Sod 3.375 gm/ Dextrose) 50 mls @ 100 mls/hr IVPB Q8H-IV [facility]; Protocol Last Admin: 05/10/20 09:41 Dose: 100 mls/hr Documented by: Levetiracetam (Keppra Oral Solution -) 500 mg PO BID [facility] Last Admin: 05/10/20 09:38 Dose: 500 mg Documented by: Loratadine (Claritin -) 10 mg PO DAILY [facility] Last Admin: 05/10/20 09:38 Dose: 10 mg Documented by: Senna (Senna Oral Solution -) 8.8 mg PO HS [facility] Last Admin: 05/09/20 21:13 Dose: 5 ml Documented by: - Objective Vital Signs: Vital Signs Temperature 100.2 F H 05/10/20 09:40 Pulse Rate 122 H 05/10/20 09:40 Respiratory Rate 22 H 05/10/20 09:40 Blood Pressure 141/85 05/10/20 09:40 O2 Sat by Pulse Oximetry (%) 95 05/10/20 09:40 Constitutional: Yes: No Distress, Calm Cardiovascular: Yes: S1, S2 Respiratory: Yes: Regular, CTA Bilaterally Gastrointestinal: Yes: Normal Bowel Sounds, Soft Musculoskeletal: Yes: WNL Extremities: Yes: Other (contracted) Neurological: Yes: Alert Psychiatric: Yes: Other Labs: CBC, BMP 05/10/20 09:13 05/10/20 09:13 INR, PTT INR 0.90 (0.83-1.09) 04/29/20 16:00 Assessment/Plan 54 yo F, nonverbal at baseline, from [facility] with PMH of profound mental retardation, cerebral palsy with spastic quadriplegia, epilepsy (since 1994) and chronic constipation presents to to ER for hypoxia. Pt being admitted for sepsis likely 2/2 aspiration pneumonia. #Sepsis #Transaminitis #Chronic Constipation #Hypochloremia #Hx of Epilepsy uti plan urine cx results noted continue abx await for sensitivities
--- NOTE | 2020-05-10 10:52 | PN ---
Progress Note, PROCESS [facility] [facility] - Note Progress Note: Selected Entries 05/09/20 05/09/20 05/09/20 02:00 06:00 06:24 Breakfast Lunch Supper Temperature 100.2 F H 99.4 F 99.9 F H Pulse Rate 110 H 94 H Blood Pressure 116/86 114/60 05/09/20 05/09/20 05/09/20 10:00 11:51 14:00 Breakfast 75% Lunch 75% Supper Temperature 100.2 F H 98.9 F Pulse Rate 107 H 107 H Blood Pressure 114/69 111/75 05/09/20 05/09/20 05/10/20 18:00 21:08 02:00 Breakfast Lunch Supper 50% Temperature 97.8 F 99.8 F H 99.7 F H Pulse Rate 103 H 98 H 114 H Blood Pressure 112/75 107/63 127/73 05/10/20 05/10/20 05:17 09:40 Breakfast Lunch Supper Temperature 99.4 F 100.2 F H Pulse Rate 111 H 122 H Blood Pressure 111/82 141/85 Laboratory Tests 05/10/20 09:13 WBC 9.6 Continues on Puree/honey on tsp. Poor head control with aspiration risk if not positioned and stablized in neutral or flexed position. puree/honey thick on tsn, 1/2 tsp at a time,mouth care. w/u regarding fevers ongoing
[2020-05-10] MEDS ORDERED: SODIUM CHLORIDE 500 ML IV STA (13:37)
--- NOTE | 2020-05-10 14:10 | PN ---
Physical Exam: SUBJECTIVE: Patient seen and examined at bedside, no acute events overnight. Tmax 99.7. Saturating at 98% on RA. OBJECTIVE: Vital Signs Period Temp Pulse Resp BP Sys/Ascencio Pulse Ox Last 24 Hr 97.8 F-100.2 F 98-122 20- 107-141/63-85 94-98 GENERAL: The patient is awake, in no acute distress. LUNGS: Breath sounds equal, clear to auscultation bilaterally, no wheezes, no crackles, no accessory muscle use. HEART: Regular rate and rhythm, S1, S2 without murmur, rub or gallop. ABDOMEN: Soft, nontender, nondistended, normoactive bowel sounds, no guarding, no rebound, no hepatosplenomegaly, no masses. EXTREMITIES: 2+ pulses, warm, well-perfused, mild edema of R. hand. R. Hand multiple Blisters, healing, resolving Laboratory Results - last 24 hr 05/09/20 05/09/20 05/10/20 17:47 21:20 06:01 WBC RBC Hgb Hct MCV MCH MCHC RDW Plt Count MPV Absolute Neuts (auto) Neutrophils % Lymphocytes % Monocytes % Eosinophils % Basophils % Nucleated RBC % Sodium Potassium Chloride Carbon Dioxide Anion Gap BUN Creatinine Est GFR (CKD-EPI)AfAm Est GFR (CKD-EPI)NonAf POC Glucometer 90 107 91 Random Glucose Calcium Phosphorus Magnesium Total Bilirubin AST ALT Alkaline Phosphatase Total Protein Albumin 05/10/20 05/10/20 05/10/20 09:13 09:13 11:59 WBC 9.6 RBC 4.08 Hgb 12.4 Hct 36.6 MCV 89.6 MCH 30.3 MCHC 33.8 RDW 14.5 Plt Count 522 H D MPV 7.1 L D Absolute Neuts (auto) 7.2 Neutrophils % 75.3 Lymphocytes % 14.7 Monocytes % 7.6 Eosinophils % 1.1 Basophils % 1.3 D Nucleated RBC % 0 Sodium 139 Potassium 3.9 Chloride 104 Carbon Dioxide 29 Anion Gap 7 L BUN 8.6 Creatinine 0.6 Est GFR (CKD-EPI)AfAm 120.61 Est GFR (CKD-EPI)NonAf 104.06 POC Glucometer 99 Random Glucose 120 H Calcium 8.7 Phosphorus 3.5 Magnesium 2.0 Total Bilirubin 0.6 AST 20 ALT 28 Alkaline Phosphatase 133 H Total Protein 6.9 Albumin 2.9 L Active Medications Generic Name Dose Route Start Last Admin Trade Name Freq PRN Reason Stop Dose Admin Acetaminophen 600 mg 05/09/20 16:13 05/10/20 13:10 Tylenol Oral Solution - PO 600 mg Q6H PRN Administration FEVER Al Hydroxide/Mg Hydroxide 30 ml 05/05/20 17:43 Mylanta Oral Suspension - PO PRN PRN INDIGESTION Baclofen 10 mg 05/05/20 22:00 05/10/20 13:10 Lioresal - PO 10 mg TID [facility] Administration Calcium Carbonate/Cholecalciferol 1 tab 05/05/20 22:00 05/10/20 09:40 Os-Hitesh 500+D - PO 1 tab BID [facility] Administration Chlorhexidine Gluconate 15 ml 05/05/20 22:00 05/10/20 09:40 Peridex - MM 15 ml BID [facility] Administration Enoxaparin Sodium 40 mg 05/08/20 10:00 05/10/20 09:38 Lovenox - SQ 40 mg DAILY [facility] Administration Famotidine 20 mg 05/05/20 22:00 05/10/20 09:39 Pepcid PO 20 mg BID [facility] Administration Piperacillin Sod/Tazobactam 50 mls @ 100 mls/hr 05/08/20 10:00 05/10/20 09:41 Sod 3.375 gm/ Dextrose IVPB 100 mls/hr Q8H-IV [facility] Administration Protocol Sodium Chloride 500 mls @ 500 mls/hr 05/10/20 13:37 Normal Saline - IV 05/10/20 14:36 ASDIR STA Levetiracetam 500 mg 05/04/20 22:00 05/10/20 09:38 Keppra Oral Solution - PO 500 mg BID [facility] Administration Loratadine 10 mg 05/06/20 10:00 05/10/20 09:38 Claritin - PO 10 mg DAILY [facility] Administration Senna 8.8 mg 04/30/20 22:00 05/09/20 21:13 Senna Oral Solution - PO 5 ml HS [facility] Administration ASSESSMENT/PLAN: Ms. Marques is a 54 y/o F with a PMH of severe mental disability 2/2 cerebral palsy from [facility], quadriplegia, and chronic constipation presented to the ER on 04/29 for hypotension/hypoxia after oral fluid prepping for colonoscopy. #Sepsis 2/2 Aspiration pneumonitis - T 96.7-97.5; tachycardic on arrival; hypotensive in the ED; tachypneic on arrival lactate 2.1 - BLD cx negative x 2 - Spiking fevers at night , resolving, Tmx 05/09 100.2, Tmax today 99.7 - Continue Zosyn - Speech therapy is on board, Dysphagia pureed diet - Modified barium swallow study: risk of aspiration but not demonstrated - Further dietary recommendations as per Speech Therapy. #UTI - Ua 2+ LE(05/08) - Ucx positive for Proteus species, awaiting final Urine Cx ID and Sens. - Currently on Antibiotics: IV Zosyn #Left hand blisters - 2/2 IV infiltration. - Blisters have decreased in numbers and are healing. swelling has also decreased. Continue to monitor blisters and fluid status - continue to monitor v/s, Tmax 100.2 today - Continue with IV Zosyn #History of seizures - Continue oral Diazepam, Keppra as patient is now tolerating diet. - Seizure precautions in place #Constipation - Continue Home meds, Lactulose if needed. - GI recommendations: colonoscopy as outpatient. #FEN - No standing fluids at this time - Continue to monitor electrolytes - Puree diet #DVT Prophylaxis -Lovenox 40mg subq daily Disposition -Patient is accepted into [facility], sign out was given. call center receptionist provider [phone]. Please call to arrange for transportation. Visit type - Emergency Visit Emergency Visit: Yes ED Registration Date: 04/29/20 Care time: The patient presented to the Emergency Department on the above date and was hospitalized for further evaluation of their emergent condition. - New Patient This patient is new to me today: Yes Date on this admission: 05/12/20 - Critical Care Critical Care patient: No - Discharge Referral Referred to [facility] Med [facility] No ATTENDING PHYSICIAN STATEMENT I saw and evaluated the patient. I reviewed the resident's note and discussed the case with the resident. I agree with the resident's findings and plan as documented. SUBJECTIVE: OBJECTIVE: ASSESSMENT AND PLAN:
--- NOTE | 2020-05-10 15:32 | PN ---
Teaching Attending Note Name of Resident: Gilmer Leavitt ATTENDING PHYSICIAN STATEMENT I saw and evaluated the patient. I reviewed the resident's note and discussed the case with the resident. I agree with the resident's findings and plan as documented. SUBJECTIVE: Non-verbal, unable to participate in medical interview. OBJECTIVE: Appears comfortable. Tmax 100.2, Hemodynamically stable. SpO2 98% RA Last Vital Signs Temp Pulse Resp BP Pulse Ox 100.2 F H 122 H 22 H 141/85 95 05/10/20 13:06 05/10/20 09:40 05/10/20 09:40 05/10/20 09:40 05/10/20 09:40 Heart - S1, S2, tachy lungs - decreased air entry globally Abdomen - non-tender. Bowel Sounds normal. Extremities - Contractures UEs and LEs. Mild erythema and de-roofed blisters dorsum of L hand, mild edema, no surrounding cellulitis. Laboratory Results - last 24 hr 05/09/20 05/09/20 05/10/20 17:47 21:20 06:01 WBC RBC Hgb Hct MCV MCH MCHC RDW Plt Count MPV Absolute Neuts (auto) Neutrophils % Lymphocytes % Monocytes % Eosinophils % Basophils % Nucleated RBC % Sodium Potassium Chloride Carbon Dioxide Anion Gap BUN Creatinine Est GFR (CKD-EPI)AfAm Est GFR (CKD-EPI)NonAf POC Glucometer 90 107 91 Random Glucose Calcium Phosphorus Magnesium Total Bilirubin AST ALT Alkaline Phosphatase Total Protein Albumin 05/10/20 05/10/20 05/10/20 09:13 09:13 11:59 WBC 9.6 RBC 4.08 Hgb 12.4 Hct 36.6 MCV 89.6 MCH 30.3 MCHC 33.8 RDW 14.5 Plt Count 522 H D MPV 7.1 L D Absolute Neuts (auto) 7.2 Neutrophils % 75.3 Lymphocytes % 14.7 Monocytes % 7.6 Eosinophils % 1.1 Basophils % 1.3 D Nucleated RBC % 0 Sodium 139 Potassium 3.9 Chloride 104 Carbon Dioxide 29 Anion Gap 7 L BUN 8.6 Creatinine 0.6 Est GFR (CKD-EPI)AfAm 120.61 Est GFR (CKD-EPI)NonAf 104.06 POC Glucometer 99 Random Glucose 120 H Calcium 8.7 Phosphorus 3.5 Magnesium 2.0 Total Bilirubin 0.6 AST 20 ALT 28 Alkaline Phosphatase 133 H Total Protein 6.9 Albumin 2.9 L Current Medications Generic Name Dose Route Start Last Admin Trade Name Zhouq PRN Reason Stop Dose Admin Acetaminophen 600 mg 05/09/20 16:13 05/10/20 13:10 Tylenol Oral Solution - PO 600 mg Q6H PRN Administration FEVER Al Hydroxide/Mg Hydroxide 30 ml 05/05/20 17:43 Mylanta Oral Suspension - PO PRN PRN INDIGESTION Baclofen 10 mg 05/05/20 22:00 05/10/20 13:10 Lioresal - PO 10 mg TID [facility] Administration Calcium Carbonate/Cholecalciferol 1 tab 05/05/20 22:00 05/10/20 09:40 Os-Hitesh 500+D - PO 1 tab BID [facility] Administration Chlorhexidine Gluconate 15 ml 05/05/20 22:00 05/10/20 09:40 Peridex - MM 15 ml BID [facility] Administration Enoxaparin Sodium 40 mg 05/08/20 10:00 05/10/20 09:38 Lovenox - SQ 40 mg DAILY [facility] Administration Famotidine 20 mg 05/05/20 22:00 05/10/20 09:39 Pepcid PO 20 mg BID [facility] Administration Piperacillin Sod/Tazobactam 50 mls @ 100 mls/hr 05/08/20 10:00 05/10/20 09:41 Sod 3.375 gm/ Dextrose IVPB 100 mls/hr Q8H-IV [facility] Administration Protocol Levetiracetam 500 mg 05/04/20 22:00 05/10/20 09:38 Keppra Oral Solution - PO 500 mg BID [facility] Administration Loratadine 10 mg 05/06/20 10:00 05/10/20 09:38 Claritin - PO 10 mg DAILY [facility] Administration Senna 8.8 mg 04/30/20 22:00 05/09/20 21:13 Senna Oral Solution - PO 5 ml HS [facility] Administration Home Medications Medication Instructions Recorded Diazepam Rectal Gel [Diastat 10 mg RC PRN PRN 07/31/19 *Rectal Gel*] Diazepam [Valium] 15 mg PO BID 07/31/19 Baclofen 10 mg PO TID 04/30/20 Calcium Carbonate/Vitamin D3 1 each PO BID 04/30/20 [Oystercal-D 500 mg-400 Unit Tb] Chlorhexidine Gluconate [Peridex -] 15 ml MM BID 04/30/20 Docusate Sodium [Colace] 100 mg PO BID 04/30/20 Loratadine [Claritin] 10 mg PO DAILY 04/30/20 Mag Hydrox/Al Hydrox/Simeth 30 ml PO PRN PRN 04/30/20 [Mylanta Oral Suspension -] Omeprazole 20 mg PO DAILY 04/30/20 Ranitidine Oral Solution [Zantac] 150 mg PO BID 04/30/20 levETIRAcetam [Keppra -] 500 mg PO BID 04/30/20 ASSESSMENT AND PLAN: 54 year old female [place] resident with severe developmental delay secondary to Cerebral Palsy, Seizure disorder, presented with hypoxia and hypotension after oral bowel prep for colonoscopy for chronic constipation. 1. Acute Respiratory Failure and Sepsis secondary to Aspiration Pneumonia + UTI Tmax overnight 100.2 Repeat CXR - progressive atelectasis/infiltrate L base. Urine Cx - Proteus Completed initial Abx course then transitioned to Doxy for cellulitis - but placed on IV Zosyn subsequently due to further fevers due to UTI Will transition to oral antibiotic if remains afebrile overnight. On Dysphagia pureed diet - repeat MBS recommended by Speech therapy shows no aspiration. 2. L Hand cellulitis with blisters sec to IV infiltration - improving Continue IV Zosyn - ID following. 3. Seizure Disorder - Contiue Keppra. 4. Cerebral Palsy - continue Baclofen, Valium 5. GERD - Continue PPI/H2 antoni DVT Px - Lovenox SQ
[2020-05-10] MEDS: SENNOSIDES 8.8 MG/5 ML BULK BOTTLE PO SCH (21:25)
[2020-05-11] MEDS ORDERED: DEXTROSE 5%-WATER - 50 ML IVPB ONE ×2 (01:50→11:19)
[2020-05-11] MEDS ORDERED: PIPERACILLIN/TAZOBACTAM 3.375 GM VIAL IVPB ONE ×2 (01:50→11:19)
[2020-05-11] MEDS: PIPERACILLIN/TAZOB 3.375 GM 3.375 GM in DEXTROSE 5%-WATER - 50 ML IVPB SCH ×2 (02:24→11:22)
[2020-05-11] MEDS: BACLOFEN 10 MG TABLET (FP) PO SCH ×2 (05:54→14:42)
[2020-05-11 09:39] LABS: BASO % 0.8 % (0-2.0); EOS % 1.7 % (0-4.5); HEMATOCRIT 35.9 % (32.4-45.2); LYMPH % 15.8 % (8-40); MCH 30.4 pg (25.7-33.7); MCHC 33.4 g/dl (32.0-36.0); MEAN PLT VOLUME 7.2 fl (7.5-11.1); MONO % 7.2 % (3.8-10.2); NEUT % 74.5 % (42.8-82.8); PLATELET COUNT 526 K/MM3 (134-434); RBC 3.95 M/mm3 (3.60-5.2); RDW 14.3 % (11.6-15.6); WHITE BLOOD COUNT 8.1 K/mm3 (4.0-10.0)
[2020-05-11 10:27] LABS: ALBUMIN 2.8 g/dl (3.4-5.0); BILIRUBIN,TOTAL 0.6 mg/dL (0.2-1); BLOOD UREA NITROGEN 9.4 mg/dL (7-18); CREATININE 0.5 mg/dL (0.55-1.3); MAGNESIUM 2.3 mg/dL (1.8-2.4); PHOSPHOROUS 3.3 mg/dL (2.5-4.9); TOT PROT 6.6 g/dl (6.4-8.2)
[2020-05-11] MEDS: LORATADINE 10 MG TABLET PO SCH (11:26)
[2020-05-11] MEDS: CALCIUM 500MG/VIT-D 200 UNITS COMBO TABLET (FP) PO SCH (11:26)
[2020-05-11] MEDS: levETIRAcetam 500 MG/5 ML ORAL SOLUTION (UNIT-DOSE CUPS) PO SCH (11:26)
[2020-05-11] MEDS: CHLORHEXIDINE GLUCONATE 0.12% 15ML CUP MM SCH (11:27)
[2020-05-11] MEDS: ENOXAPARIN NA (PORCINE) 40 MG/0.4 ML DISP.SYRIN SQ SCH (11:33)
[2020-05-11] MEDS: FAMOTIDINE 40 MG/5 ML ORAL SUSPENSION PO SCH (11:50)
--- NOTE | 2020-05-11 14:25 | PN ---
Teaching Attending Note Name of Resident: Melody Starks ATTENDING PHYSICIAN STATEMENT I saw and evaluated the patient. I reviewed the resident's note and discussed the case with the resident. I agree with the resident's findings and plan as documented. SUBJECTIVE: Non-verbal, unable to participate in medical interview. OBJECTIVE: Appears comfortable. Afebrile - fever resolved, Hemodynamically stable. SpO2 97% RA Last Vital Signs Temp Pulse Resp BP Pulse Ox 99.0 F 95 H 20 127/74 97 05/11/20 14:00 05/11/20 14:00 05/11/20 14:00 05/11/20 14:00 05/11/20 14:00 Heart - S1, S2, RRR lungs - decreased air entry globally Abdomen - non-tender. Bowel Sounds normal. Extremities - Contractures UEs and LEs. Mild erythema and de-roofed blisters dorsum of L hand, mild edema, no surrounding cellulitis. Laboratory Results - last 24 hr 05/10/20 05/10/20 05/11/20 16:49 21:43 05:59 WBC RBC Hgb Hct MCV MCH MCHC RDW Plt Count MPV Absolute Neuts (auto) Neutrophils % Lymphocytes % Monocytes % Eosinophils % Basophils % Nucleated RBC % Sodium Potassium Chloride Carbon Dioxide Anion Gap BUN Creatinine Est GFR (CKD-EPI)AfAm Est GFR (CKD-EPI)NonAf POC Glucometer 82 101 88 Random Glucose Calcium Phosphorus Magnesium Total Bilirubin AST ALT Alkaline Phosphatase Total Protein Albumin 05/11/20 05/11/20 05/11/20 09:00 09:00 11:24 WBC 8.1 RBC 3.95 Hgb 12.0 Hct 35.9 MCV 91.0 MCH 30.4 MCHC 33.4 RDW 14.3 Plt Count 526 H MPV 7.2 L Absolute Neuts (auto) 6.0 Neutrophils % 74.5 Lymphocytes % 15.8 Monocytes % 7.2 Eosinophils % 1.7 Basophils % 0.8 Nucleated RBC % 0 Sodium 140 Potassium 4.0 Chloride 105 Carbon Dioxide 29 Anion Gap 6 L BUN 9.4 Creatinine 0.5 L Est GFR (CKD-EPI)AfAm 128.07 Est GFR (CKD-EPI)NonAf 110.50 POC Glucometer 89 Random Glucose 98 Calcium 9.0 Phosphorus 3.3 Magnesium 2.3 Total Bilirubin 0.6 AST 20 ALT 24 Alkaline Phosphatase 126 H Total Protein 6.6 Albumin 2.8 L Current Medications Generic Name Dose Route Start Last Admin Trade Name Kashif PRN Reason Stop Dose Admin Acetaminophen 600 mg 05/09/20 16:13 05/10/20 13:10 Tylenol Oral Solution - PO 600 mg Q6H PRN Administration FEVER Al Hydroxide/Mg Hydroxide 30 ml 05/05/20 17:43 Mylanta Oral Suspension - PO PRN PRN INDIGESTION Baclofen 10 mg 05/05/20 22:00 05/11/20 05:54 Lioresal - PO 10 mg TID DARWIN Administration Calcium Carbonate/Cholecalciferol 1 tab 05/05/20 22:00 05/11/20 11:26 Os-Hitesh 500+D - PO 1 tab BID DARWIN Administration Chlorhexidine Gluconate 15 ml 05/05/20 22:00 05/11/20 11:27 Peridex - MM 15 ml BID DARWIN Administration Enoxaparin Sodium 40 mg 05/08/20 10:00 05/11/20 11:33 Lovenox - SQ 40 mg DAILY DARIWN Administration Famotidine 20 mg 05/05/20 22:00 05/11/20 11:50 Pepcid PO 20 mg BID DARWIN Administration Piperacillin Sod/Tazobactam 50 mls @ 100 mls/hr 05/08/20 10:00 05/11/20 11:22 Sod 3.375 gm/ Dextrose IVPB 100 mls/hr Q8H-IV DARWIN Administration Protocol Levetiracetam 500 mg 05/04/20 22:00 05/11/20 11:26 Keppra Oral Solution - PO 500 mg BID DARWIN Administration Loratadine 10 mg 05/06/20 10:00 05/11/20 11:26 Claritin - PO 10 mg DAILY DARWIN Administration Senna 8.8 mg 04/30/20 22:00 05/10/20 21:25 Senna Oral Solution - PO 5 ml HS DARWIN Administration Home Medications Medication Instructions Recorded Diazepam Rectal Gel [Diastat 10 mg RC PRN PRN 07/31/19 *Rectal Gel*] Diazepam [Valium] 15 mg PO BID 07/31/19 Baclofen 10 mg PO TID 04/30/20 Calcium Carbonate/Vitamin D3 1 each PO BID 04/30/20 [Oystercal-D 500 mg-400 Unit Tb] Chlorhexidine Gluconate [Peridex -] 15 ml MM BID 04/30/20 Docusate Sodium [Colace] 100 mg PO BID 04/30/20 Loratadine [Claritin] 10 mg PO DAILY 04/30/20 Mag Hydrox/Al Hydrox/Simeth 30 ml PO PRN PRN 04/30/20 [Mylanta Oral Suspension -] Omeprazole 20 mg PO DAILY 04/30/20 Ranitidine Oral Solution [Zantac] 150 mg PO BID 04/30/20 levETIRAcetam [Keppra -] 500 mg PO BID 04/30/20 Cefpodoxime Proxetil [Vantin -] 200 mg PO BID #8 tablet 05/11/20 ASSESSMENT AND PLAN: 54 year old female [place] resident with severe developmental delay secondary to Cerebral Palsy, Seizure disorder, presented with hypoxia and hypotension after oral bowel prep for colonoscopy for chronic constipation. 1. Acute Respiratory Failure and Sepsis secondary to Aspiration Pneumonia + UTI Afebrile Repeat CXR - progressive atelectasis/infiltrate L base. Urine Cx - Proteus Completed initial Abx course then transitioned to Doxy for cellulitis - but placed on IV Zosyn subsequently due to further fevers due to UTI afbebrle for 48 hours - can transition to Cefuroxime for an additional 4 days. On Dysphagia pureed diet - repeat MBS recommended by Speech therapy shows no aspiration. 2. L Hand cellulitis with blisters sec to IV infiltration - improving Improved on IV Zosyn - transition to Cephalosporin on discharge. 3. Seizure Disorder - Contiue Keppra. 4. Cerebral Palsy - continue Baclofen, Valium 5. GERD - Continue PPI/H2 antoni DVT Px - Lovenox SQ
[2020-05-11 15:30] VITALS: BP 127/74; PULSE 95; TEMP 99
--- NOTE | 2020-05-11 15:49 | DS ---
Physical Exam: SUBJECTIVE: Patient seen and examined at bedside, no acute events overnight. Tmax 98.3. Saturating at 97% on RA. OBJECTIVE: Vital Signs Period Temp Pulse Resp BP Sys/Ascencio Pulse Ox Last 24 Hr 97.4 F-99.0 F 78-105 19-20 103-139/60-74 94-100 PHYSICAL EXAM GENERAL: The patient is awake, in no acute distress. LUNGS: Breath sounds equal, clear to auscultation bilaterally, no wheezes, no crackles, no accessory muscle use. HEART: Regular rate and rhythm, S1, S2 without murmur, rub or gallop. ABDOMEN: Soft, nontender, nondistended, normoactive bowel sounds, no guarding, no rebound, no hepatosplenomegaly, no masses. EXTREMITIES: 2+ pulses, warm, well-perfused, mild edema of R. hand. R. Hand multiple Blisters, healing, resolved LABS Laboratory Results - last 24 hr 05/10/20 05/10/20 05/11/20 16:49 21:43 05:59 WBC RBC Hgb Hct MCV MCH MCHC RDW Plt Count MPV Absolute Neuts (auto) Neutrophils % Lymphocytes % Monocytes % Eosinophils % Basophils % Nucleated RBC % Sodium Potassium Chloride Carbon Dioxide Anion Gap BUN Creatinine Est GFR (CKD-EPI)AfAm Est GFR (CKD-EPI)NonAf POC Glucometer 82 101 88 Random Glucose Calcium Phosphorus Magnesium Total Bilirubin AST ALT Alkaline Phosphatase Total Protein Albumin 05/11/20 05/11/20 05/11/20 09:00 09:00 11:24 WBC 8.1 RBC 3.95 Hgb 12.0 Hct 35.9 MCV 91.0 MCH 30.4 MCHC 33.4 RDW 14.3 Plt Count 526 H MPV 7.2 L Absolute Neuts (auto) 6.0 Neutrophils % 74.5 Lymphocytes % 15.8 Monocytes % 7.2 Eosinophils % 1.7 Basophils % 0.8 Nucleated RBC % 0 Sodium 140 Potassium 4.0 Chloride 105 Carbon Dioxide 29 Anion Gap 6 L BUN 9.4 Creatinine 0.5 L Est GFR (CKD-EPI)AfAm 128.07 Est GFR (CKD-EPI)NonAf 110.50 POC Glucometer 89 Random Glucose 98 Calcium 9.0 Phosphorus 3.3 Magnesium 2.3 Total Bilirubin 0.6 AST 20 ALT 24 Alkaline Phosphatase 126 H Total Protein 6.6 Albumin 2.8 L HOSPITAL COURSE: Date of Admission:04/29/20 54 year old female [place] resident with severe developmental delay secondary to Cerebral Palsy, Seizure disorder, presented with hypoxia and hypotension after oral bowel prep for colonoscopy for chronic constipation, admitted for Acute Respiratory Failure and Sepsis secondary to Aspiration Pneumonia. Patient also developed a L Hand cellulitis with blisters sec to IV infiltration. She completed initial Abx course then transitioned to Doxy for cellulitis, but placed on IV Zosyn subsequently due to further fevers 2/2 to UTI. Patient was found to have an UTI on Ua with Urine Cx positive for Proteus. CXR revealed progressive atelectasis/infiltrate L base. Patient remained on Dysphagia pureed diet , during her hospital course. MBS was recommended by Speech therapy for evaluation of Aspiration. MBS revealed no aspiration. Patient is clinically stable for discharge, vitals are stable, afebrile, Patient is discharged to [facility] with Cefuroxime 500mg 8 tabs [address] referral to Dr[address] Foster (GI). Date of Discharge: 05/11/20 Minutes to complete discharge: 36 Discharge Summary Problems reviewed: Yes Reason For Visit: TRANSAMINASEMIA,HYPOXIA Condition: Good - Instructions Diet, Activity, Other Instructions: YOUR VISIT: You were admitted to the hospital for low oxygen. While you were in the hospital, we evaluated you with lab work, blood work, and imaging including a CT scan of your chest, abdomen, and pelvis, and an ultrasound of your abdomen. We did not see any significant findings on imagining of your lungs but we suspected that liquids you had drank were introduced into your lungs. You were unable to drink clear liquids so we had consulted our speech and swallow expert to evaluate what you are able to ingest. We had found on abdominal CT that you had constipation and we consulted our peer counselor (Dr. Foster) to evaluate you. You were treated with fluids, antibiotics, and constipation medication. During your hospital course we also noted that your liver enzymes were elevated. While you were here, we monitored you closely and your abnormal labwork, constipation, and low oxygen levels have resolved. You were medically stable and you were cleared to be discharged. You will need to follow up with your primary care physician to review your blood work. Your labwork was also found to have positive antibodies for HEPATITIS A and B, meaning you may have had these in the past or had a vaccine. Please follow up with your primary care physician for further workup of your hepatitis serology labwork. MEDICATIONS: Please START taking Vantin 200mg twice a day for 4 Days to complete treatment of your pneumonia. Continue to take all other home medications as prescribed FOLLOW UPS: Please follow up with your peer counselor for a possible colonoscopy. Please visit your primary care provider Dr. Michele within 2 weeks to follow up with your labwork and hospital visit. ADDITIONAL INSTRUCTIONS: You are being discharged to your Nursing care facility. Please return to the Emergency department if you are experiencing worsening or concerning symptoms. FACILITY INSTRUCTIONS: Speech and swallow evaluation recommends a pureed dysphagia diet with honey thick liquids. Referrals: Fabian Foster DO [Staff Physician] - 2 Weeks James Michele Jr [Non Staff, Medical] - 2 Weeks Disposition: [facility] FACILITY - Home Medications Comprehensive Discharge Medication List: Ambulatory Orders Diazepam Rectal Gel [Diastat *Rectal Gel*] 10 mg RC PRN PRN 07/31/19 Diazepam [Valium] 15 mg PO BID 07/31/19 Baclofen 10 mg PO TID 04/30/20 Calcium Carbonate/Vitamin D3 [Oystercal-D 500 mg-400 Unit Tb] 1 each PO BID 04/30/20 Chlorhexidine Gluconate [Peridex -] 15 ml MM BID 04/30/20 Docusate Sodium [Colace] 100 mg PO BID 04/30/20 Loratadine [Claritin] 10 mg PO DAILY 04/30/20 Mag Hydrox/Al Hydrox/Simeth [Mylanta Oral Suspension -] 30 ml PO PRN PRN 04/30/20 Omeprazole 20 mg PO DAILY 04/30/20 Ranitidine Oral Solution [Zantac] 150 mg PO BID 04/30/20 levETIRAcetam [Keppra -] 500 mg PO BID 04/30/20 Cefuroxime Axetil [Cefuroxime] 500 mg PO BID #8 tablet 05/11/20 This patient is new to me today: Yes Date on this admission: 05/12/20 Emergency Visit: Yes ED Registration Date: 04/29/20 Care time: The patient presented to the Emergency Department on the above date and was hospitalized for further evaluation of their emergent condition. Critical Care patient: No - Discharge Referral Referred to [facility] Med P.C.: No ATTENDING PHYSICIAN STATEMENT I saw and evaluated the patient. I reviewed the resident's note and discussed the case with the resident. I agree with the resident's findings and plan as documented. SUBJECTIVE: OBJECTIVE: ASSESSMENT AND PLAN:
== END 2020-05-11 16:34 | disposition home or self-care (01) | DRG 720 ==
LOC: JER 13:16 → JERBED 20:53 → J6WEST-2 04-30 20:44 → J5S 05-01 15:42
PROVIDERS: ADMIT Internal Medicine
DX: A41.9 Sepsis, unspecified organism (principal); J69.0 Pneumonitis due to inhalation of food and vomit; J96.00 Acute respiratory failure, unspecified whether with hypoxia or hypercapnia; F73 Profound intellectual disabilities; M41.9 Scoliosis, unspecified; D69.6 Thrombocytopenia, unspecified; L03.114 Cellulitis of left upper limb; G80.0 Spastic quadriplegic cerebral palsy; G40.909 Epilepsy, unspecified, not intractable, without status epilepticus; K59.09 Other constipation; E86.1 Hypovolemia; K21.9 Gastro-esophageal reflux disease without esophagitis; R74.0 Nonspecific elevation of levels of transaminase and lactic acid dehydrogenase [LDH]; N39.0 Urinary tract infection, site not specified; B96.4 Proteus (mirabilis) (morganii) as the cause of diseases classified elsewhere
CPT/HCPCS: 36415; 71045-TC-FY; 71260-TC; 74018-TC-FY; 74177-TC; 74230-TC-FY; 76705-TC; 80048; 80053; 81003; 82550; 82962; 83605; 83735; 84100; 84484; 85025; 85027; 85610; 85730; 86704; 86706; 86707; 86708; 86709; 87040; 87070; 87086; 87186; 87205; 87340; 87902; 92611-GN; 93005; 93010; 99285-25; J0475; Q9967; U0003

== ENCOUNTER 2020-07-12 08:00 | Inpatient (IN) | payer OTHER ==
[2020-07-12 09:08] LABS: BASO % 0.3 % (0-2.0); EOS % 1.9 % (0-4.5); HEMATOCRIT 40.6 % (32.4-45.2); HEMOGLOBIN 13.2 GM/dL (10.7-15.3); MCH 28.7 pg (25.7-33.7); MCHC 32.5 g/dl (32.0-36.0); MEAN CELL VOLUME 88.1 fl (80-96); MEAN PLT VOLUME 8.9 fl (7.5-11.1); MONO % 8.3 % (3.8-10.2); NEUT % 64.5 % (42.8-82.8); PLATELET COUNT 126 K/MM3 (134-434); RDW 14.7 % (11.6-15.6); WHITE BLOOD COUNT 5.3 K/mm3 (4.0-10.0)
[2020-07-12 09:16] LABS: INR 0.94 (0.83-1.09); PROTHROMBIN TIME (PATIENT) 11.6 SEC (9.7-13.0)
[2020-07-12 09:41] LABS: POTASSIUM 3.9 mmol/L (3.5-5.1)
[2020-07-12 09:44] LABS: ALBUMIN 3.3 g/dl (3.4-5.0); BLOOD UREA NITROGEN 9.4 mg/dL (7-18); CALCIUM 9.4 mg/dL (8.5-10.1)
[2020-07-12 09:48] LABS: CREATININE 0.5 mg/dL (0.55-1.3)
[2020-07-12 09:49] LABS: BILIRUBIN,TOTAL 0.2 mg/dL (0.2-1); TOT PROT 6.9 g/dl (6.4-8.2)
[2020-07-12] MEDS ORDERED: DEXTROSE 50%-WATER - 25 GM/50 ML VIAL IVPUSH ONE (09:55)
[2020-07-12] MEDS ORDERED: DEXTROSE 50%-WATER - 25 GM/50 ML VIAL ONE (10:09)
[2020-07-12 16:17] LABS: BASO % 0.2 % (0-2.0); EOS % 1.6 % (0-4.5); HEMATOCRIT 38.1 % (32.4-45.2); HEMOGLOBIN 12.4 GM/dL (10.7-15.3); LYMPH % 29.2 % (8-40); MCH 28.8 pg (25.7-33.7); MCHC 32.6 g/dl (32.0-36.0); MEAN CELL VOLUME 88.1 fl (80-96); MEAN PLT VOLUME 8.8 fl (7.5-11.1); MONO % 10.4 % (3.8-10.2); NEUT % 58.6 % (42.8-82.8); PLATELET COUNT 118 K/MM3 (134-434); RBC 4.33 M/mm3 (3.60-5.2); RDW 14.7 % (11.6-15.6); WHITE BLOOD COUNT 3.9 K/mm3 (4.0-10.0)
[2020-07-12] MEDS ORDERED: diazePAM RECTAL GEL 10 MG KIT (PRE-CALIBRATED) RC PRN (18:54)
[2020-07-12] MEDS: diazePAM 5 MG TABLET PO SCH (23:00)
[2020-07-12] MEDS: levETIRAcetam 500 MG/5 ML INJECTION VIAL IVPB SCH (23:00)
[2020-07-12] MEDS: BACLOFEN 10 MG TABLET (FP) PO SCH (23:00)
[2020-07-12] MEDS: PANTOPRAZOLE SODIUM 40 MG VIAL IVPUSH SCH (23:01)
[2020-07-13 00:11] LABS: HEMATOCRIT 37.3 % (32.4-45.2); HEMOGLOBIN 12.3 GM/dL (10.7-15.3); MCH 29.1 pg (25.7-33.7); MCHC 33.1 g/dl (32.0-36.0); MEAN CELL VOLUME 88.1 fl (80-96); MEAN PLT VOLUME 9.1 fl (7.5-11.1); PLATELET COUNT 123 K/MM3 (134-434); RBC 4.23 M/mm3 (3.60-5.2); RDW 15.1 % (11.6-15.6); WHITE BLOOD COUNT 3.9 K/mm3 (4.0-10.0)
[2020-07-13] MEDS: BACLOFEN 10 MG TABLET (FP) PO SCH ×3 (05:34→21:36)
[2020-07-13 08:29] LABS: HEMATOCRIT 35.4 % (32.4-45.2); HEMOGLOBIN 11.6 GM/dL (10.7-15.3); MCH 28.7 pg (25.7-33.7); MCHC 32.8 g/dl (32.0-36.0); MEAN CELL VOLUME 87.7 fl (80-96); RBC 4.03 M/mm3 (3.60-5.2); RDW 14.9 % (11.6-15.6); WHITE BLOOD COUNT 3.3 K/mm3 (4.0-10.0)
[2020-07-13] MEDS: diazePAM 5 MG TABLET PO SCH ×2 (09:32→21:36)
[2020-07-13] MEDS: LORATADINE 10 MG TABLET PO SCH (09:32)
[2020-07-13] MEDS: PANTOPRAZOLE SODIUM 40 MG VIAL IVPUSH SCH ×2 (09:57→21:35)
[2020-07-13] MEDS: levETIRAcetam 500 MG/5 ML INJECTION VIAL IVPB SCH ×2 (09:58→21:35)
[2020-07-13 10:58] LABS: POTASSIUM 4.2 mmol/L (3.5-5.1)
[2020-07-13 11:02] LABS: ALBUMIN 3.2 g/dl (3.4-5.0); BLOOD UREA NITROGEN 12.9 mg/dL (7-18)
[2020-07-13 11:04] LABS: CREATININE 0.5 mg/dL (0.55-1.3)
[2020-07-13 11:06] LABS: TOT PROT 6.6 g/dl (6.4-8.2)
[2020-07-13 11:09] LABS: BILIRUBIN,TOTAL 0.4 mg/dL (0.2-1)
[2020-07-13 11:25] LABS: PLATELET COUNT 128 K/MM3 (134-434)
[2020-07-14] MEDS: BACLOFEN 10 MG TABLET (FP) PO SCH ×3 (05:58→21:56)
[2020-07-14] MEDS ORDERED: ACETAMINOPHEN 1000 MG/100 ML VIAL (NON FORMULARY) IVPB PRN (06:58)
[2020-07-14] MEDS: LORATADINE 10 MG TABLET PO SCH (10:40)
[2020-07-14] MEDS: diazePAM 5 MG TABLET PO SCH ×2 (10:40→21:56)
[2020-07-14] MEDS: levETIRAcetam 500 MG/5 ML INJECTION VIAL IVPB SCH ×2 (10:40→21:56)
[2020-07-14] MEDS: PANTOPRAZOLE SODIUM 40 MG VIAL IVPUSH SCH ×2 (10:41→21:56)
[2020-07-14] MEDS ORDERED: VANCOMYCIN 1 GRAM (PRE-DOCKED) 1,000 MG/250 ML BAG IVPB ONE (11:33)
[2020-07-14] MEDS ORDERED: PIPERACILLIN/TAZOB 3.375 GM 3.375 GM in DEXTROSE 5%-WATER - 50 ML IVPB SCH ×2 (11:45→13:15)
[2020-07-14 12:20] LABS: BASO % 0.3 % (0-2.0); HEMATOCRIT 30.9 % (32.4-45.2); HEMOGLOBIN 10.1 GM/dL (10.7-15.3); LYMPH % 10.9 % (8-40); MCH 28.6 pg (25.7-33.7); MCHC 32.6 g/dl (32.0-36.0); MEAN CELL VOLUME 87.6 fl (80-96); MEAN PLT VOLUME 8.9 fl (7.5-11.1); MONO % 4.3 % (3.8-10.2); NEUT % 84.5 % (42.8-82.8); PLATELET COUNT 138 K/MM3 (134-434); RBC 3.53 M/mm3 (3.60-5.2); RDW 15.3 % (11.6-15.6); WHITE BLOOD COUNT 7.9 K/mm3 (4.0-10.0)
[2020-07-14 12:43] LABS: POTASSIUM 4.4 mmol/L (3.5-5.1)
[2020-07-14 12:45] LABS: CALCIUM 8.4 mg/dL (8.5-10.1)
[2020-07-14 12:46] LABS: ALBUMIN 2.8 g/dl (3.4-5.0); BLOOD UREA NITROGEN 21.7 mg/dL (7-18)
[2020-07-14 12:49] LABS: CREATININE 0.7 mg/dL (0.55-1.3)
[2020-07-14 12:50] LABS: BILIRUBIN,TOTAL 0.5 mg/dL (0.2-1); TOT PROT 5.9 g/dl (6.4-8.2)
[2020-07-14 15:31] VITALS: BMI 19.3
[2020-07-14] MEDS: ALBUTEROL SO4 2.5/IPRATROPIUM 0.5 INH SOL 3 ML VIAL.NEB. NEB SCH ×2 (16:16→19:54)
[2020-07-14] MEDS ORDERED: PIPERACILLIN/TAZOBACTAM 3.375 GM VIAL IVPB ONE (17:11)
[2020-07-14] MEDS ORDERED: DEXTROSE 5%-WATER - 50 ML IVPB ONE (17:12)
[2020-07-14] MEDS: PIPERACILLIN/TAZOB 3.375 GM 3.375 GM in DEXTROSE 5%-WATER - 50 ML IVPB SCH (17:41)
[2020-07-14] MEDS: LACTATED RINGERS SOLUTION 1,000 ML IV SCH (19:35)
[2020-07-15] MEDS ORDERED: PIPERACILLIN/TAZOBACTAM 3.375 GM VIAL IVPB ONE ×3 (01:28→17:41)
[2020-07-15] MEDS ORDERED: DEXTROSE 5%-WATER - 50 ML IVPB ONE ×3 (01:28→17:41)
[2020-07-15] MEDS: PIPERACILLIN/TAZOB 3.375 GM 3.375 GM in DEXTROSE 5%-WATER - 50 ML IVPB SCH ×3 (02:35→17:46)
[2020-07-15] MEDS: LACTATED RINGERS SOLUTION 1,000 ML IV SCH ×2 (05:18→19:45)
[2020-07-15] MEDS: BACLOFEN 10 MG TABLET (FP) PO SCH ×3 (05:56→21:24)
[2020-07-15] MEDS: ALBUTEROL SO4 2.5/IPRATROPIUM 0.5 INH SOL 3 ML VIAL.NEB. NEB SCH ×4 (07:45→21:11)
[2020-07-15] MEDS: diazePAM 5 MG TABLET PO SCH ×2 (10:00→21:24)
[2020-07-15] MEDS: PANTOPRAZOLE SODIUM 40 MG VIAL IVPUSH SCH ×2 (10:46→21:27)
[2020-07-15] MEDS: levETIRAcetam 500 MG/5 ML INJECTION VIAL IVPB SCH ×2 (10:46→21:27)
[2020-07-15] MEDS: LORATADINE 10 MG TABLET PO SCH (10:47)
[2020-07-15 16:49] LABS: BASO % 0.2 % (0-2.0); EOS % 0.4 % (0-4.5); HEMOGLOBIN 8.8 GM/dL (10.7-15.3); LYMPH % 13.8 % (8-40); MCH 28.7 pg (25.7-33.7); MCHC 32.7 g/dl (32.0-36.0); MEAN CELL VOLUME 87.9 fl (80-96); MEAN PLT VOLUME 8.1 fl (7.5-11.1); MONO % 5.9 % (3.8-10.2); NEUT % 79.7 % (42.8-82.8); PLATELET COUNT 109 K/MM3 (134-434); RBC 3.07 M/mm3 (3.60-5.2); RDW 15.1 % (11.6-15.6); WHITE BLOOD COUNT 8.2 K/mm3 (4.0-10.0)
[2020-07-15 17:09] LABS: POTASSIUM 3.2 mmol/L (3.5-5.1)
[2020-07-15 17:12] LABS: ALBUMIN 2.4 g/dl (3.4-5.0); CALCIUM 8.2 mg/dL (8.5-10.1)
[2020-07-15 17:13] LABS: BLOOD UREA NITROGEN 16.2 mg/dL (7-18)
[2020-07-15 17:16] LABS: CREATININE 0.4 mg/dL (0.55-1.3)
[2020-07-15 17:17] LABS: BILIRUBIN,TOTAL 0.6 mg/dL (0.2-1); TOT PROT 5.2 g/dl (6.4-8.2)
[2020-07-16] MEDS ORDERED: PIPERACILLIN/TAZOBACTAM 3.375 GM VIAL IVPB ONE ×3 (00:49→16:26)
[2020-07-16] MEDS ORDERED: DEXTROSE 5%-WATER - 50 ML IVPB ONE ×3 (00:49→16:26)
[2020-07-16] MEDS: PIPERACILLIN/TAZOB 3.375 GM 3.375 GM in DEXTROSE 5%-WATER - 50 ML IVPB SCH ×3 (01:02→17:05)
[2020-07-16 03:49] LABS: HEMATOCRIT 24.5 % (32.4-45.2); MCH 28.8 pg (25.7-33.7); MCHC 32.5 g/dl (32.0-36.0); MEAN CELL VOLUME 88.6 fl (80-96); PLATELET COUNT 103 K/MM3 (134-434); RBC 2.77 M/mm3 (3.60-5.2); RDW 15.2 % (11.6-15.6); WHITE BLOOD COUNT 7.3 K/mm3 (4.0-10.0)
[2020-07-16] MEDS: BACLOFEN 10 MG TABLET (FP) PO SCH ×3 (05:02→21:00)
[2020-07-16] MEDS: ALBUTEROL SO4 2.5/IPRATROPIUM 0.5 INH SOL 3 ML VIAL.NEB. NEB SCH ×4 (07:35→20:20)
[2020-07-16] MEDS ORDERED: LACTATED RINGERS SOLUTION 1,000 ML IV SCH (09:21)
[2020-07-16] MEDS: diazePAM 5 MG TABLET PO SCH ×2 (09:54→21:05)
[2020-07-16] MEDS: PANTOPRAZOLE SODIUM 40 MG VIAL IVPUSH SCH ×2 (09:55→21:05)
[2020-07-16] MEDS: levETIRAcetam 500 MG/5 ML INJECTION VIAL IVPB SCH ×2 (09:55→21:00)
[2020-07-16] MEDS: LORATADINE 10 MG TABLET PO SCH (09:55)
[2020-07-16 11:05] LABS: POTASSIUM 3.3 mmol/L (3.5-5.1)
[2020-07-16 11:07] LABS: ALBUMIN 2.6 g/dl (3.4-5.0); BLOOD UREA NITROGEN 16.9 mg/dL (7-18); CALCIUM 8.6 mg/dL (8.5-10.1); MAGNESIUM 1.9 mg/dL (1.8-2.4)
[2020-07-16 11:10] LABS: CREATININE 0.3 mg/dL (0.55-1.3)
[2020-07-16 11:12] LABS: BILIRUBIN,TOTAL 0.5 mg/dL (0.2-1); TOT PROT 5.6 g/dl (6.4-8.2)
[2020-07-16] MEDS ORDERED: FUROSEMIDE 40 MG/4 ML INJECTABLE VIAL IVPUSH ONE (11:15)
[2020-07-16 15:42] LABS: BASO % 0.1 % (0-2.0); EOS % 0.3 % (0-4.5); HEMATOCRIT 27.7 % (32.4-45.2); HEMOGLOBIN 8.9 GM/dL (10.7-15.3); LYMPH % 6.6 % (8-40); MCH 28.5 pg (25.7-33.7); MCHC 32.2 g/dl (32.0-36.0); MEAN CELL VOLUME 88.4 fl (80-96); MEAN PLT VOLUME 8.3 fl (7.5-11.1); MONO % 4.9 % (3.8-10.2); NEUT % 88.1 % (42.8-82.8); PLATELET COUNT 130 K/MM3 (134-434); RBC 3.14 M/mm3 (3.60-5.2); RDW 15.4 % (11.6-15.6); WHITE BLOOD COUNT 9.4 K/mm3 (4.0-10.0)
[2020-07-16] MEDS ORDERED: POTASSIUM CHLORIDE ORAL LIQUID 20 MEQ/15 ML PO ONE (17:39)
[2020-07-17] MEDS ORDERED: PIPERACILLIN/TAZOBACTAM 3.375 GM VIAL IVPB ONE ×3 (00:55→17:21)
[2020-07-17] MEDS ORDERED: DEXTROSE 5%-WATER - 50 ML IVPB ONE ×3 (00:56→17:21)
[2020-07-17] MEDS: PIPERACILLIN/TAZOB 3.375 GM 3.375 GM in DEXTROSE 5%-WATER - 50 ML IVPB SCH ×3 (01:00→17:35)
[2020-07-17] MEDS: BACLOFEN 10 MG TABLET (FP) PO SCH ×3 (05:50→21:53)
[2020-07-17 07:53] LABS: BASO % 0.2 % (0-2.0); EOS % 2.1 % (0-4.5); HEMATOCRIT 26.6 % (32.4-45.2); HEMOGLOBIN 8.6 GM/dL (10.7-15.3); LYMPH % 10.8 % (8-40); MCH 28.8 pg (25.7-33.7); MCHC 32.2 g/dl (32.0-36.0); MEAN CELL VOLUME 89.3 fl (80-96); MEAN PLT VOLUME 8.7 fl (7.5-11.1); MONO % 7.4 % (3.8-10.2); NEUT % 79.5 % (42.8-82.8); PLATELET COUNT 158 K/MM3 (134-434); RBC 2.98 M/mm3 (3.60-5.2); WHITE BLOOD COUNT 7.7 K/mm3 (4.0-10.0)
[2020-07-17] MEDS: ALBUTEROL SO4 2.5/IPRATROPIUM 0.5 INH SOL 3 ML VIAL.NEB. NEB SCH ×4 (08:01→20:08)
[2020-07-17 09:12] LABS: POTASSIUM 3.7 mmol/L (3.5-5.1)
[2020-07-17 09:16] LABS: ALBUMIN 2.4 g/dl (3.4-5.0)
[2020-07-17 09:19] LABS: BLOOD UREA NITROGEN 12.2 mg/dL (7-18); CREATININE 0.3 mg/dL (0.55-1.3)
[2020-07-17 09:20] LABS: BILIRUBIN,TOTAL 0.6 mg/dL (0.2-1); TOT PROT 5.8 g/dl (6.4-8.2)
[2020-07-17] MEDS: levETIRAcetam 500 MG/5 ML INJECTION VIAL IVPB SCH ×2 (09:29→21:42)
[2020-07-17] MEDS: PANTOPRAZOLE SODIUM 40 MG VIAL IVPUSH SCH ×2 (09:29→21:42)
[2020-07-17] MEDS: diazePAM 5 MG TABLET PO SCH ×2 (09:29→21:45)
[2020-07-17] MEDS: LORATADINE 10 MG TABLET PO SCH (09:29)
[2020-07-18] MEDS ORDERED: PIPERACILLIN/TAZOBACTAM 3.375 GM VIAL IVPB ONE ×3 (00:57→16:23)
[2020-07-18] MEDS ORDERED: DEXTROSE 5%-WATER - 50 ML IVPB ONE ×3 (00:57→16:23)
[2020-07-18] MEDS: PIPERACILLIN/TAZOB 3.375 GM 3.375 GM in DEXTROSE 5%-WATER - 50 ML IVPB SCH ×3 (01:04→17:20)
[2020-07-18] MEDS: BACLOFEN 10 MG TABLET (FP) PO SCH ×3 (06:43→21:31)
[2020-07-18 07:25] LABS: BASO % 0.2 % (0-2.0); EOS % 1.1 % (0-4.5); HEMATOCRIT 26.1 % (32.4-45.2); HEMOGLOBIN 8.3 GM/dL (10.7-15.3); LYMPH % 10.6 % (8-40); MCH 28.5 pg (25.7-33.7); MCHC 31.8 g/dl (32.0-36.0); MEAN CELL VOLUME 89.6 fl (80-96); MONO % 8.1 % (3.8-10.2); PLATELET COUNT 223 K/MM3 (134-434); RBC 2.91 M/mm3 (3.60-5.2); RDW 15.8 % (11.6-15.6); WHITE BLOOD COUNT 6.6 K/mm3 (4.0-10.0)
[2020-07-18 07:33] LABS: POTASSIUM 3.9 mmol/L (3.5-5.1)
[2020-07-18 08:16] LABS: BLOOD UREA NITROGEN 9.8 mg/dL (7-18)
[2020-07-18 08:17] LABS: ALBUMIN 2.4 g/dl (3.4-5.0); CALCIUM 9.2 mg/dL (8.5-10.1)
[2020-07-18 08:19] LABS: CREATININE 0.3 mg/dL (0.55-1.3)
[2020-07-18 08:20] LABS: BILIRUBIN,TOTAL 0.6 mg/dL (0.2-1); TOT PROT 5.9 g/dl (6.4-8.2)
[2020-07-18 08:21] LABS: MAGNESIUM 2.1 mg/dL (1.8-2.4)
[2020-07-18] MEDS: ALBUTEROL SO4 2.5/IPRATROPIUM 0.5 INH SOL 3 ML VIAL.NEB. NEB SCH ×4 (09:55→20:03)
[2020-07-18] MEDS: diazePAM 5 MG TABLET PO SCH ×2 (10:23→21:31)
[2020-07-18] MEDS: levETIRAcetam 500 MG/5 ML INJECTION VIAL IVPB SCH ×2 (10:23→21:31)
[2020-07-18] MEDS: PANTOPRAZOLE SODIUM 40 MG VIAL IVPUSH SCH ×2 (10:23→21:31)
[2020-07-18] MEDS: LORATADINE 10 MG TABLET PO SCH (10:23)
[2020-07-18] MEDS ORDERED: ACETAMINOPHEN 1000 MG/100 ML VIAL (NON FORMULARY) IVPB PRN ×2 (16:15→16:54)
[2020-07-19] MEDS ORDERED: PIPERACILLIN/TAZOBACTAM 3.375 GM VIAL IVPB ONE ×3 (00:42→18:21)
[2020-07-19] MEDS ORDERED: DEXTROSE 5%-WATER - 50 ML IVPB ONE ×3 (00:43→18:21)
[2020-07-19] MEDS: PIPERACILLIN/TAZOB 3.375 GM 3.375 GM in DEXTROSE 5%-WATER - 50 ML IVPB SCH ×3 (01:13→18:33)
[2020-07-19] MEDS: BACLOFEN 10 MG TABLET (FP) PO SCH ×3 (05:32→21:44)
[2020-07-19] MEDS: ALBUTEROL SO4 2.5/IPRATROPIUM 0.5 INH SOL 3 ML VIAL.NEB. NEB SCH ×2 (07:30→11:29)
[2020-07-19 08:07] LABS: BASO % 0.4 % (0-2.0); EOS % 0.9 % (0-4.5); HEMOGLOBIN 8.6 GM/dL (10.7-15.3); LYMPH % 12.7 % (8-40); MCH 28.6 pg (25.7-33.7); MCHC 31.7 g/dl (32.0-36.0); MEAN CELL VOLUME 90.1 fl (80-96); MEAN PLT VOLUME 7.7 fl (7.5-11.1); MONO % 8.7 % (3.8-10.2); NEUT % 77.3 % (42.8-82.8); PLATELET COUNT 294 K/MM3 (134-434); RDW 16.1 % (11.6-15.6); WHITE BLOOD COUNT 8.5 K/mm3 (4.0-10.0)
[2020-07-19 08:23] LABS: POTASSIUM 3.9 mmol/L (3.5-5.1)
[2020-07-19 08:25] LABS: CALCIUM 8.9 mg/dL (8.5-10.1)
[2020-07-19 08:26] LABS: ALBUMIN 2.5 g/dl (3.4-5.0); BLOOD UREA NITROGEN 9.7 mg/dL (7-18); MAGNESIUM 2.1 mg/dL (1.8-2.4)
[2020-07-19 08:29] LABS: CREATININE 0.3 mg/dL (0.55-1.3)
[2020-07-19 08:31] LABS: BILIRUBIN,TOTAL 0.4 mg/dL (0.2-1); TOT PROT 6.1 g/dl (6.4-8.2)
[2020-07-19] MEDS: PANTOPRAZOLE SODIUM 40 MG VIAL IVPUSH SCH ×2 (09:30→21:43)
[2020-07-19] MEDS: levETIRAcetam 500 MG/5 ML INJECTION VIAL IVPB SCH ×2 (09:33→21:44)
[2020-07-19] MEDS: diazePAM 5 MG TABLET PO SCH ×2 (09:33→21:44)
[2020-07-19] MEDS: LORATADINE 10 MG TABLET PO SCH (09:34)
[2020-07-20] MEDS ORDERED: DEXTROSE 5%-WATER - 50 ML IVPB ONE ×3 (02:25→17:44)
[2020-07-20] MEDS ORDERED: PIPERACILLIN/TAZOBACTAM 3.375 GM VIAL IVPB ONE ×3 (02:25→17:44)
[2020-07-20] MEDS: PIPERACILLIN/TAZOB 3.375 GM 3.375 GM in DEXTROSE 5%-WATER - 50 ML IVPB SCH ×3 (02:29→17:49)
[2020-07-20] MEDS: BACLOFEN 10 MG TABLET (FP) PO SCH ×3 (06:41→21:44)
[2020-07-20 09:12] LABS: BASO % 0.3 % (0-2.0); EOS % 0.4 % (0-4.5); HEMATOCRIT 26.9 % (32.4-45.2); HEMOGLOBIN 8.9 GM/dL (10.7-15.3); LYMPH % 12.5 % (8-40); MCH 29.8 pg (25.7-33.7); MCHC 32.9 g/dl (32.0-36.0); MEAN CELL VOLUME 90.4 fl (80-96); MEAN PLT VOLUME 7.7 fl (7.5-11.1); MONO % 10.1 % (3.8-10.2); NEUT % 76.7 % (42.8-82.8); PLATELET COUNT 363 K/MM3 (134-434); RBC 2.97 M/mm3 (3.60-5.2); RDW 15.4 % (11.6-15.6); WHITE BLOOD COUNT 7.8 K/mm3 (4.0-10.0)
[2020-07-20 09:50] LABS: POTASSIUM 3.8 mmol/L (3.5-5.1)
[2020-07-20 10:02] LABS: ALBUMIN 2.6 g/dl (3.4-5.0)
[2020-07-20 10:03] LABS: BLOOD UREA NITROGEN 11.1 mg/dL (7-18)
[2020-07-20 10:05] LABS: CALCIUM 9.3 mg/dL (8.5-10.1)
[2020-07-20 10:07] LABS: MAGNESIUM 2.1 mg/dL (1.8-2.4)
[2020-07-20 10:08] LABS: BILIRUBIN,TOTAL 0.5 mg/dL (0.2-1); TOT PROT 6.4 g/dl (6.4-8.2)
[2020-07-20 10:09] LABS: CREATININE 0.4 mg/dL (0.55-1.3)
[2020-07-20] MEDS: levETIRAcetam 500 MG/5 ML INJECTION VIAL IVPB SCH ×2 (10:09→21:43)
[2020-07-20] MEDS: PANTOPRAZOLE SODIUM 40 MG VIAL IVPUSH SCH ×2 (10:09→21:42)
[2020-07-20] MEDS: diazePAM 5 MG TABLET PO SCH ×2 (10:10→21:41)
[2020-07-20] MEDS: LORATADINE 10 MG TABLET PO SCH (10:10)
[2020-07-20 10:15] LABS: PLATELET ESTIMATE NORMAL
[2020-07-20] MEDS ORDERED: POTASSIUM CHLORIDE TABS 20 MEQ TABLET.ER (FP) PO ONE (13:24)
[2020-07-20] MEDS: DEXTROSE 5%-WATER - 1,000 ML IV SCH (13:59)
[2020-07-21] MEDS ORDERED: DEXTROSE 5%-WATER - 50 ML IVPB ONE ×3 (01:02→17:47)
[2020-07-21] MEDS ORDERED: PIPERACILLIN/TAZOBACTAM 3.375 GM VIAL IVPB ONE ×3 (01:02→17:47)
[2020-07-21] MEDS: PIPERACILLIN/TAZOB 3.375 GM 3.375 GM in DEXTROSE 5%-WATER - 50 ML IVPB SCH ×3 (01:12→17:55)
[2020-07-21] MEDS: BACLOFEN 10 MG TABLET (FP) PO SCH ×3 (05:25→21:10)
[2020-07-21 09:42] LABS: BASO % 0.5 % (0-2.0); EOS % 1.4 % (0-4.5); HEMATOCRIT 24.8 % (32.4-45.2); HEMOGLOBIN 8.2 GM/dL (10.7-15.3); LYMPH % 10.9 % (8-40); MCH 29.5 pg (25.7-33.7); MCHC 32.9 g/dl (32.0-36.0); MEAN CELL VOLUME 89.5 fl (80-96); MEAN PLT VOLUME 7.8 fl (7.5-11.1); MONO % 8.5 % (3.8-10.2); NEUT % 78.7 % (42.8-82.8); PLATELET COUNT 452 K/MM3 (134-434); RBC 2.78 M/mm3 (3.60-5.2); WHITE BLOOD COUNT 8.5 K/mm3 (4.0-10.0)
[2020-07-21 09:44] LABS: POTASSIUM 3.9 mmol/L (3.5-5.1)
[2020-07-21 09:46] LABS: ALBUMIN 2.5 g/dl (3.4-5.0)
[2020-07-21 09:47] LABS: BLOOD UREA NITROGEN 12.6 mg/dL (7-18); CALCIUM 9.2 mg/dL (8.5-10.1)
[2020-07-21 09:53] LABS: CREATININE 0.4 mg/dL (0.55-1.3)
[2020-07-21 09:55] LABS: BILIRUBIN,TOTAL 0.3 mg/dL (0.2-1); TOT PROT 6.4 g/dl (6.4-8.2)
[2020-07-21] MEDS: diazePAM 5 MG TABLET PO SCH ×2 (10:12→21:09)
[2020-07-21] MEDS: PANTOPRAZOLE SODIUM 40 MG VIAL IVPUSH SCH ×2 (10:12→21:09)
[2020-07-21] MEDS: levETIRAcetam 500 MG/5 ML INJECTION VIAL IVPB SCH ×2 (10:12→21:09)
[2020-07-21] MEDS: LORATADINE 10 MG TABLET PO SCH (10:12)
[2020-07-21] MEDS: DEXTROSE 5%-WATER - 1,000 ML IV SCH (15:04)
[2020-07-21] MEDS ORDERED: ACETAMINOPHEN 1000 MG/100 ML VIAL (NON FORMULARY) IVPB ONE (19:58)
[2020-07-21] MEDS: LACTULOSE 20 GM/30 ML UDC (FOR ORAL USE ONLY) PO SCH (21:10)
[2020-07-22] MEDS ORDERED: PIPERACILLIN/TAZOBACTAM 3.375 GM VIAL IVPB ONE ×3 (01:11→17:32)
[2020-07-22] MEDS ORDERED: DEXTROSE 5%-WATER - 50 ML IVPB ONE ×3 (01:12→17:32)
[2020-07-22] MEDS: PIPERACILLIN/TAZOB 3.375 GM 3.375 GM in DEXTROSE 5%-WATER - 50 ML IVPB SCH ×3 (01:26→18:13)
[2020-07-22] MEDS: BACLOFEN 10 MG TABLET (FP) PO SCH ×3 (05:18→21:22)
[2020-07-22 07:32] LABS: BASO % 0.6 % (0-2.0); EOS % 3.4 % (0-4.5); HEMOGLOBIN 8.2 GM/dL (10.7-15.3); LYMPH % 13.6 % (8-40); MCH 29.4 pg (25.7-33.7); MEAN CELL VOLUME 89.1 fl (80-96); MEAN PLT VOLUME 7.2 fl (7.5-11.1); MONO % 9.4 % (3.8-10.2); PLATELET COUNT 511 K/MM3 (134-434); WHITE BLOOD COUNT 7.3 K/mm3 (4.0-10.0)
[2020-07-22 07:54] LABS: POTASSIUM 3.5 mmol/L (3.5-5.1)
[2020-07-22 08:07] LABS: CALCIUM 8.5 mg/dL (8.5-10.1)
[2020-07-22 08:08] LABS: ALBUMIN 2.4 g/dl (3.4-5.0); BLOOD UREA NITROGEN 12.5 mg/dL (7-18); MAGNESIUM 1.9 mg/dL (1.8-2.4)
[2020-07-22 08:09] LABS: CREATININE 0.4 mg/dL (0.55-1.3)
[2020-07-22 08:10] LABS: BILIRUBIN,TOTAL 0.3 mg/dL (0.2-1)
[2020-07-22] MEDS ORDERED: POTASSIUM CHLORIDE TABS 20 MEQ TABLET.ER (FP) PO ONE (08:30)
[2020-07-22] MEDS: diazePAM 5 MG TABLET PO SCH ×2 (09:38→21:22)
[2020-07-22] MEDS: LACTULOSE 20 GM/30 ML UDC (FOR ORAL USE ONLY) PO SCH ×2 (09:40→21:22)
[2020-07-22] MEDS: PANTOPRAZOLE SODIUM 40 MG VIAL IVPUSH SCH ×2 (09:41→21:21)
[2020-07-22] MEDS: levETIRAcetam 500 MG/5 ML INJECTION VIAL IVPB SCH ×2 (09:41→21:22)
[2020-07-22] MEDS ORDERED: POTASSIUM CHLORIDE ORAL LIQUID 20 MEQ/15 ML PO ONE (10:00)
[2020-07-22] MEDS ORDERED: PT OWN MED DRAWER 7, Y5N ONE (11:02)
[2020-07-22] MEDS: LORATADINE 10 MG TABLET PO SCH (11:17)
[2020-07-23] MEDS ORDERED: PIPERACILLIN/TAZOBACTAM 3.375 GM VIAL IVPB ONE ×2 (00:46→09:26)
[2020-07-23] MEDS ORDERED: DEXTROSE 5%-WATER - 50 ML IVPB ONE ×2 (00:46→09:26)
[2020-07-23] MEDS: PIPERACILLIN/TAZOB 3.375 GM 3.375 GM in DEXTROSE 5%-WATER - 50 ML IVPB SCH ×2 (01:39→09:32)
[2020-07-23] MEDS: BACLOFEN 10 MG TABLET (FP) PO SCH ×3 (05:12→21:06)
[2020-07-23 08:44] LABS: POTASSIUM 4.5 mmol/L (3.5-5.1)
[2020-07-23 09:01] LABS: CALCIUM 8.9 mg/dL (8.5-10.1)
[2020-07-23 09:02] LABS: ALBUMIN 2.5 g/dl (3.4-5.0); BLOOD UREA NITROGEN 10.4 mg/dL (7-18); MAGNESIUM 1.9 mg/dL (1.8-2.4)
[2020-07-23 09:05] LABS: CREATININE 0.3 mg/dL (0.55-1.3)
[2020-07-23 09:06] LABS: TOT PROT 6.5 g/dl (6.4-8.2)
[2020-07-23] MEDS: LACTULOSE 20 GM/30 ML UDC (FOR ORAL USE ONLY) PO SCH ×2 (09:31→21:05)
[2020-07-23] MEDS: diazePAM 5 MG TABLET PO SCH ×2 (09:31→21:06)
[2020-07-23] MEDS: LORATADINE 10 MG TABLET PO SCH (09:31)
[2020-07-23] MEDS: levETIRAcetam 500 MG/5 ML ORAL SOLUTION (UNIT-DOSE CUPS) PO SCH ×2 (09:32→21:05)
[2020-07-23] MEDS: PANTOPRAZOLE SOD 40 MG SUSPENSION PACKET PO SCH ×2 (09:32→21:04)
[2020-07-23] MEDS ORDERED: PT OWN MED DRAWER 7, Y5N ONE (20:56)
[2020-07-24] MEDS: BACLOFEN 10 MG TABLET (FP) PO SCH ×2 (05:25→13:48)
[2020-07-24 08:37] LABS: BASO % 0.6 % (0-2.0); EOS % 1.6 % (0-4.5); HEMATOCRIT 28.3 % (32.4-45.2); HEMOGLOBIN 9.2 GM/dL (10.7-15.3); LYMPH % 13.8 % (8-40); MCH 29.3 pg (25.7-33.7); MCHC 32.6 g/dl (32.0-36.0); MEAN CELL VOLUME 89.9 fl (80-96); MEAN PLT VOLUME 7.5 fl (7.5-11.1); MONO % 8.2 % (3.8-10.2); NEUT % 75.8 % (42.8-82.8); PLATELET COUNT 622 K/MM3 (134-434); RBC 3.15 M/mm3 (3.60-5.2); RDW 15.3 % (11.6-15.6); WHITE BLOOD COUNT 7.5 K/mm3 (4.0-10.0)
[2020-07-24] MEDS ORDERED: PT OWN MED DRAWER 7, Y5N ONE (09:06)
[2020-07-24 09:11] LABS: POTASSIUM 4.2 mmol/L (3.5-5.1)
[2020-07-24 09:13] LABS: CALCIUM 8.6 mg/dL (8.5-10.1)
[2020-07-24 09:14] LABS: ALBUMIN 2.9 g/dl (3.4-5.0); BLOOD UREA NITROGEN 7.5 mg/dL (7-18); MAGNESIUM 2.1 mg/dL (1.8-2.4)
[2020-07-24 09:17] LABS: CREATININE 0.5 mg/dL (0.55-1.3)
[2020-07-24 09:18] LABS: BILIRUBIN,TOTAL 0.8 mg/dL (0.2-1); TOT PROT 5.7 g/dl (6.4-8.2)
[2020-07-24] MEDS: levETIRAcetam 500 MG/5 ML ORAL SOLUTION (UNIT-DOSE CUPS) PO SCH (09:40)
[2020-07-24] MEDS: diazePAM 5 MG TABLET PO SCH (09:40)
[2020-07-24] MEDS: LACTULOSE 20 GM/30 ML UDC (FOR ORAL USE ONLY) PO SCH (09:40)
[2020-07-24] MEDS: PANTOPRAZOLE SOD 40 MG SUSPENSION PACKET PO SCH (09:41)
[2020-07-24] MEDS: LORATADINE 10 MG TABLET PO SCH (09:41)
[2020-07-24 09:47] LABS: INR 1.21 (0.83-1.09); PROTHROMBIN TIME (PATIENT) 14.8 SEC (9.7-13.0)
[2020-07-24] MEDS ORDERED: PANTOPRAZOLE SOD 40 MG SUSPENSION PACKET NR SCH (15:42)
[2020-07-24] MEDS ORDERED: PEG 3350/NA SULF BICARB CL/KCL 4000 ML SOLN.RECON PO ONE (16:00)
[2020-07-24] MEDS: LACTULOSE 20 GM/30 ML UDC (FOR ORAL USE ONLY) NGT SCH (21:55)
[2020-07-24] MEDS: BACLOFEN 10 MG TABLET (FP) NGT SCH (21:55)
[2020-07-24] MEDS: diazePAM 5 MG TABLET NGT SCH (21:56)
[2020-07-24] MEDS: FAMOTIDINE 20 MG TABLET NGT SCH (21:56)
[2020-07-24] MEDS: levETIRAcetam 500 MG/5 ML ORAL SOLUTION (UNIT-DOSE CUPS) NGT SCH (21:56)
[2020-07-25] MEDS: BACLOFEN 10 MG TABLET (FP) NGT SCH ×3 (06:33→21:30)
[2020-07-25] MEDS: levETIRAcetam 500 MG/5 ML ORAL SOLUTION (UNIT-DOSE CUPS) NGT SCH ×2 (09:57→21:30)
[2020-07-25] MEDS: LACTULOSE 20 GM/30 ML UDC (FOR ORAL USE ONLY) NGT SCH ×2 (09:57→21:30)
[2020-07-25] MEDS: LORATADINE 10 MG TABLET NGT SCH (09:57)
[2020-07-25] MEDS: FAMOTIDINE 20 MG TABLET NGT SCH ×2 (09:57→21:30)
[2020-07-25] MEDS: diazePAM 5 MG TABLET NGT SCH ×2 (09:57→21:30)
[2020-07-25] MEDS ORDERED: PEG 3350/NA SULF BICARB CL/KCL 4000 ML SOLN.RECON NGT ONE (10:24)
[2020-07-25] MEDS ORDERED: AMINO ACIDS 4.25%/D5W 1,000 ML IV SCH (12:00)
[2020-07-25] MEDS ORDERED: AMPICILLIN NA/SULBACTAM NA 1.5 GM in SODIUM CHLORIDE 100 ML IVPB SCH (12:15)
[2020-07-25 13:39] LABS: BASO % 0.4 % (0-2.0); EOS % 0.9 % (0-4.5); HEMATOCRIT 28.6 % (32.4-45.2); HEMOGLOBIN 9.3 GM/dL (10.7-15.3); LYMPH % 15.3 % (8-40); MCH 29.4 pg (25.7-33.7); MCHC 32.7 g/dl (32.0-36.0); MEAN PLT VOLUME 7.2 fl (7.5-11.1); NEUT % 74.4 % (42.8-82.8); PLATELET COUNT 618 K/MM3 (134-434); RBC 3.17 M/mm3 (3.60-5.2); WHITE BLOOD COUNT 7.9 K/mm3 (4.0-10.0)
[2020-07-25 13:43] LABS: INR 1.23 (0.83-1.09); PROTHROMBIN TIME (PATIENT) 14.8 SEC (9.7-13.0)
[2020-07-25 13:56] LABS: POTASSIUM 3.8 mmol/L (3.5-5.1)
[2020-07-25 13:58] LABS: CALCIUM 8.7 mg/dL (8.5-10.1)
[2020-07-25 13:59] LABS: ALBUMIN 2.3 g/dl (3.4-5.0); BLOOD UREA NITROGEN 6.4 mg/dL (7-18)
[2020-07-25 14:02] LABS: CREATININE 0.3 mg/dL (0.55-1.3)
[2020-07-25 14:03] LABS: BILIRUBIN,TOTAL 0.3 mg/dL (0.2-1)
[2020-07-25 14:04] LABS: TOT PROT 6.2 g/dl (6.4-8.2)
[2020-07-25] MEDS ORDERED: SODIUM CHLORIDE 100 ML IVPB ONE (14:13)
[2020-07-25] MEDS ORDERED: AMPICILLIN NA/SULBACTAM NA 1.5 GM VIAL ONE (14:13)
[2020-07-25] MEDS: AMPICILLIN NA/SULBACTAM NA 1.5 GM in SODIUM CHLORIDE 100 ML IVPB SCH (17:09)
[2020-07-26] MEDS ORDERED: SODIUM CHLORIDE 100 ML IVPB ONE ×3 (00:51→17:43)
[2020-07-26] MEDS ORDERED: AMPICILLIN NA/SULBACTAM NA 1.5 GM VIAL ONE ×3 (00:51→17:43)
[2020-07-26] MEDS: AMPICILLIN NA/SULBACTAM NA 1.5 GM in SODIUM CHLORIDE 100 ML IVPB SCH ×3 (01:09→17:50)
[2020-07-26] MEDS: BACLOFEN 10 MG TABLET (FP) NGT SCH ×2 (06:30→14:00)
[2020-07-26] MEDS: diazePAM 5 MG TABLET NGT SCH (09:48)
[2020-07-26] MEDS: levETIRAcetam 500 MG/5 ML ORAL SOLUTION (UNIT-DOSE CUPS) NGT SCH (09:48)
[2020-07-26] MEDS: LORATADINE 10 MG TABLET NGT SCH (10:16)
[2020-07-26] MEDS: FAMOTIDINE 20 MG TABLET NGT SCH (10:16)
[2020-07-26] MEDS: LACTULOSE 20 GM/30 ML UDC (FOR ORAL USE ONLY) NGT SCH (10:16)
[2020-07-26] MEDS: diazePAM 5 MG TABLET PO SCH (22:32)
[2020-07-26] MEDS: BACLOFEN 10 MG TABLET (FP) PO SCH (22:32)
[2020-07-26] MEDS: levETIRAcetam 500 MG/5 ML ORAL SOLUTION (UNIT-DOSE CUPS) PO SCH (22:33)
[2020-07-26] MEDS: LACTULOSE 20 GM/30 ML UDC (FOR ORAL USE ONLY) PO SCH (22:33)
[2020-07-26] MEDS: FAMOTIDINE 20 MG TABLET PO SCH (22:33)
[2020-07-27] MEDS ORDERED: SODIUM CHLORIDE 0 ML IVPB ONE (01:45)
[2020-07-27] MEDS ORDERED: AMPICILLIN NA/SULBACTAM NA 1.5 GM VIAL ONE ×4 (01:45→17:34)
[2020-07-27] MEDS: AMPICILLIN NA/SULBACTAM NA 1.5 GM in SODIUM CHLORIDE 100 ML IVPB SCH ×3 (01:49→17:48)
[2020-07-27] MEDS ORDERED: SODIUM CHLORIDE 100 ML IVPB ONE ×3 (01:51→17:34)
[2020-07-27] MEDS: BACLOFEN 10 MG TABLET (FP) PO SCH ×3 (06:01→21:50)
[2020-07-27 09:13] LABS: BASO % 0.7 % (0-2.0); EOS % 2.6 % (0-4.5); HEMATOCRIT 23.1 % (32.4-45.2); HEMOGLOBIN 7.6 GM/dL (10.7-15.3); LYMPH % 13.7 % (8-40); MCH 28.9 pg (25.7-33.7); MCHC 32.8 g/dl (32.0-36.0); MEAN PLT VOLUME 7.4 fl (7.5-11.1); MONO % 8.9 % (3.8-10.2); NEUT % 74.1 % (42.8-82.8); PLATELET COUNT 533 K/MM3 (134-434); RBC 2.62 M/mm3 (3.60-5.2); RDW 15.1 % (11.6-15.6)
[2020-07-27 09:52] LABS: POTASSIUM 3.1 mmol/L (3.5-5.1)
[2020-07-27] MEDS ORDERED: PT OWN MED DRAWER 7, Y5N ONE (10:07)
[2020-07-27 10:08] LABS: ALBUMIN 1.9 g/dl (3.4-5.0); BILIRUBIN,TOTAL 0.2 mg/dL (0.2-1); BLOOD UREA NITROGEN 5.4 mg/dL (7-18); CALCIUM 7.8 mg/dL (8.5-10.1); MAGNESIUM 1.7 mg/dL (1.8-2.4)
[2020-07-27 10:10] LABS: TOT PROT 5.2 g/dl (6.4-8.2)
[2020-07-27 10:11] LABS: CREATININE 0.2 mg/dL (0.55-1.3)
[2020-07-27] MEDS: diazePAM 5 MG TABLET PO SCH ×2 (10:24→21:50)
[2020-07-27] MEDS: levETIRAcetam 500 MG/5 ML ORAL SOLUTION (UNIT-DOSE CUPS) PO SCH ×2 (10:24→21:50)
[2020-07-27] MEDS: LORATADINE 10 MG TABLET PO SCH (10:25)
[2020-07-27] MEDS: FAMOTIDINE 20 MG TABLET PO SCH ×2 (10:25→21:50)
[2020-07-27] MEDS: LACTULOSE 20 GM/30 ML UDC (FOR ORAL USE ONLY) PO SCH ×2 (10:30→21:50)
[2020-07-27] MEDS ORDERED: MAGNESIUM OXIDE 400 MG TABLET (FP) PO ONE (10:40)
[2020-07-27] MEDS: KCL 10 MEQ IVPB 10 MEQ/100 ML INFUS.BAG IVPB SCH ×2 (11:30→12:27)
[2020-07-27] MEDS: MULTIVIT-MINERALS ORAL LIQUID PO SCH (11:30)
[2020-07-28] MEDS ORDERED: SODIUM CHLORIDE 100 ML IVPB ONE ×3 (02:41→17:24)
[2020-07-28] MEDS ORDERED: AMPICILLIN NA/SULBACTAM NA 1.5 GM VIAL ONE ×3 (02:41→17:23)
[2020-07-28] MEDS: AMPICILLIN NA/SULBACTAM NA 1.5 GM in SODIUM CHLORIDE 100 ML IVPB SCH ×3 (02:43→18:17)
[2020-07-28] MEDS: BACLOFEN 10 MG TABLET (FP) PO SCH ×3 (06:10→21:30)
[2020-07-28] MEDS ORDERED: PT OWN MED DRAWER 7, Y5N ONE ×2 (09:38→21:30)
[2020-07-28] MEDS: FAMOTIDINE 20 MG TABLET PO SCH ×2 (10:10→21:30)
[2020-07-28] MEDS: diazePAM 5 MG TABLET PO SCH ×2 (10:10→21:30)
[2020-07-28] MEDS: LORATADINE 10 MG TABLET PO SCH (10:10)
[2020-07-28] MEDS: levETIRAcetam 500 MG/5 ML ORAL SOLUTION (UNIT-DOSE CUPS) PO SCH ×2 (10:10→21:30)
[2020-07-28] MEDS: LACTULOSE 20 GM/30 ML UDC (FOR ORAL USE ONLY) PO SCH ×2 (10:11→21:30)
[2020-07-28] MEDS: MULTIVIT-MINERALS ORAL LIQUID PO SCH (10:11)
[2020-07-28 19:29] LABS: BASO % 0.6 % (0-2.0); EOS % 1.4 % (0-4.5); HEMATOCRIT 32.4 % (32.4-45.2); HEMOGLOBIN 10.5 GM/dL (10.7-15.3); LYMPH % 19.3 % (8-40); MCH 29.5 pg (25.7-33.7); MCHC 32.3 g/dl (32.0-36.0); MEAN CELL VOLUME 91.1 fl (80-96); MEAN PLT VOLUME 9.2 fl (7.5-11.1); MONO % 6.6 % (3.8-10.2); NEUT % 72.1 % (42.8-82.8); PLATELET COUNT 643 K/MM3 (134-434); RBC 3.55 M/mm3 (3.60-5.2); RDW 15.5 % (11.6-15.6); WHITE BLOOD COUNT 12.9 K/mm3 (4.0-10.0)
[2020-07-28 19:42] LABS: INR 1.14 (0.83-1.09)
[2020-07-28 19:48] LABS: POTASSIUM 3.7 mmol/L (3.5-5.1)
[2020-07-28 19:51] LABS: ALBUMIN 2.7 g/dl (3.4-5.0); BLOOD UREA NITROGEN 4.2 mg/dL (7-18); CALCIUM 9.3 mg/dL (8.5-10.1)
[2020-07-28 19:52] LABS: MAGNESIUM 1.8 mg/dL (1.8-2.4)
[2020-07-28 19:55] LABS: CREATININE 0.3 mg/dL (0.55-1.3)
[2020-07-28 19:56] LABS: BILIRUBIN,TOTAL 0.4 mg/dL (0.2-1)
[2020-07-28] MEDS ORDERED: PIPERACILLIN/TAZOBACTAM 3.375 GM VIAL IVPB ONE (21:30)
[2020-07-28] MEDS ORDERED: DEXTROSE 5%-WATER - 50 ML IVPB ONE (21:30)
[2020-07-28] MEDS: PIPERACILLIN/TAZOB 3.375 GM 3.375 GM in DEXTROSE 5%-WATER - 50 ML IVPB SCH (21:30)
[2020-07-28] MEDS ORDERED: SENNOSIDES 8.8 MG/5 ML BULK BOTTLE PO SCH (22:00)
[2020-07-29] MEDS ORDERED: PIPERACILLIN/TAZOBACTAM 3.375 GM VIAL IVPB ONE ×3 (01:19→17:45)
[2020-07-29] MEDS ORDERED: DEXTROSE 5%-WATER - 50 ML IVPB ONE ×3 (01:20→17:46)
[2020-07-29] MEDS: PIPERACILLIN/TAZOB 3.375 GM 3.375 GM in DEXTROSE 5%-WATER - 50 ML IVPB SCH ×3 (01:33→17:58)
[2020-07-29] MEDS: BACLOFEN 10 MG TABLET (FP) PO SCH ×2 (05:48→13:29)
[2020-07-29] MEDS ORDERED: PT OWN MED DRAWER 7, Y5N ONE ×2 (09:33→21:31)
[2020-07-29] MEDS: MULTIVIT-MINERALS ORAL LIQUID PO SCH (09:36)
[2020-07-29] MEDS: levETIRAcetam 500 MG/5 ML ORAL SOLUTION (UNIT-DOSE CUPS) PO SCH (09:36)
[2020-07-29] MEDS: LACTULOSE 20 GM/30 ML UDC (FOR ORAL USE ONLY) PO SCH (09:36)
[2020-07-29] MEDS: diazePAM 5 MG TABLET PO SCH (09:36)
[2020-07-29] MEDS: FAMOTIDINE 20 MG TABLET PO SCH (09:37)
[2020-07-29] MEDS: LORATADINE 10 MG TABLET PO SCH (09:37)
[2020-07-29 11:05] LABS: BASO % 0.6 % (0-2.0); HEMATOCRIT 27.8 % (32.4-45.2); HEMOGLOBIN 9.1 GM/dL (10.7-15.3); LYMPH % 11.1 % (8-40); MCH 29.3 pg (25.7-33.7); MCHC 32.9 g/dl (32.0-36.0); MEAN CELL VOLUME 88.9 fl (80-96); MEAN PLT VOLUME 7.6 fl (7.5-11.1); MONO % 11.1 % (3.8-10.2); NEUT % 76.2 % (42.8-82.8); PLATELET COUNT 675 K/MM3 (134-434); RBC 3.12 M/mm3 (3.60-5.2); RDW 15.8 % (11.6-15.6); WHITE BLOOD COUNT 6.8 K/mm3 (4.0-10.0)
[2020-07-29 11:26] LABS: POTASSIUM 3.3 mmol/L (3.5-5.1)
[2020-07-29 11:28] LABS: ALBUMIN 2.2 g/dl (3.4-5.0); BLOOD UREA NITROGEN 3.1 mg/dL (7-18); CALCIUM 8.4 mg/dL (8.5-10.1); MAGNESIUM 1.8 mg/dL (1.8-2.4)
[2020-07-29 11:32] LABS: CREATININE 0.3 mg/dL (0.55-1.3)
[2020-07-29 11:33] LABS: BILIRUBIN,TOTAL 0.3 mg/dL (0.2-1); TOT PROT 5.9 g/dl (6.4-8.2)
[2020-07-29] MEDS: KCL 10 MEQ IVPB 10 MEQ/100 ML INFUS.BAG IVPB SCH ×2 (12:19→13:28)
[2020-07-29] MEDS: LACTULOSE 20 GM/30 ML UDC (FOR ORAL USE ONLY) NGT SCH (21:32)
[2020-07-29] MEDS: levETIRAcetam 500 MG/5 ML ORAL SOLUTION (UNIT-DOSE CUPS) NGT SCH (21:32)
[2020-07-29] MEDS: SENNOSIDES 8.8 MG/5 ML BULK BOTTLE NGT SCH (21:32)
[2020-07-29] MEDS: diazePAM 5 MG TABLET NGT SCH (21:32)
[2020-07-29] MEDS: FAMOTIDINE 20 MG TABLET NGT SCH (21:32)
[2020-07-29] MEDS: BACLOFEN 10 MG TABLET (FP) NGT SCH (21:33)
[2020-07-30] MEDS ORDERED: PIPERACILLIN/TAZOBACTAM 3.375 GM VIAL IVPB ONE ×3 (00:14→17:05)
[2020-07-30] MEDS ORDERED: DEXTROSE 5%-WATER - 50 ML IVPB ONE ×3 (00:14→17:05)
[2020-07-30] MEDS: PIPERACILLIN/TAZOB 3.375 GM 3.375 GM in DEXTROSE 5%-WATER - 50 ML IVPB SCH ×3 (01:10→17:31)
[2020-07-30] MEDS: BACLOFEN 10 MG TABLET (FP) NGT SCH ×3 (05:12→21:38)
[2020-07-30] MEDS: FAMOTIDINE 20 MG TABLET NGT SCH ×2 (10:43→21:38)
[2020-07-30] MEDS: LORATADINE 10 MG TABLET NGT SCH (10:44)
[2020-07-30] MEDS: diazePAM 5 MG TABLET NGT SCH ×2 (10:44→21:38)
[2020-07-30] MEDS: levETIRAcetam 500 MG/5 ML ORAL SOLUTION (UNIT-DOSE CUPS) NGT SCH ×2 (10:44→21:37)
[2020-07-30 11:07] LABS: BASO % 0.9 % (0-2.0); EOS % 1.9 % (0-4.5); HEMATOCRIT 27.8 % (32.4-45.2); HEMOGLOBIN 9.2 GM/dL (10.7-15.3); LYMPH % 11.8 % (8-40); MCH 29.2 pg (25.7-33.7); MEAN CELL VOLUME 88.6 fl (80-96); MEAN PLT VOLUME 7.8 fl (7.5-11.1); MONO % 9.8 % (3.8-10.2); NEUT % 75.6 % (42.8-82.8); PLATELET COUNT 664 K/MM3 (134-434); RBC 3.14 M/mm3 (3.60-5.2); RDW 15.2 % (11.6-15.6); WHITE BLOOD COUNT 6.1 K/mm3 (4.0-10.0)
[2020-07-30 11:14] LABS: INR 1.29 (0.83-1.09); PROTHROMBIN TIME (PATIENT) 15.7 SEC (9.7-13.0)
[2020-07-30 11:29] LABS: POTASSIUM 3.3 mmol/L (3.5-5.1)
[2020-07-30 11:31] LABS: CALCIUM 8.3 mg/dL (8.5-10.1)
[2020-07-30 11:32] LABS: ALBUMIN 2.2 g/dl (3.4-5.0)
[2020-07-30 11:33] LABS: MAGNESIUM 1.7 mg/dL (1.8-2.4)
[2020-07-30 11:34] LABS: CREATININE 0.3 mg/dL (0.55-1.3)
[2020-07-30 11:36] LABS: BILIRUBIN,TOTAL 0.4 mg/dL (0.2-1); TOT PROT 6.1 g/dl (6.4-8.2)
[2020-07-30 11:39] LABS: BLOOD UREA NITROGEN 2.6 mg/dL (7-18)
[2020-07-30] MEDS: KCL 10 MEQ IVPB 10 MEQ/100 ML INFUS.BAG IVPB SCH ×3 (12:47→15:53)
[2020-07-30] MEDS ORDERED: MAGNESIUM SULF 50% (8.12 MEQ/2 ML-1 GM VIAL) IVPB ONE (12:53)
[2020-07-30] MEDS: MULTIVIT-MINERALS ORAL LIQUID PO SCH (15:54)
[2020-07-30] MEDS: LACTULOSE 20 GM/30 ML UDC (FOR ORAL USE ONLY) NGT SCH ×2 (15:54→21:36)
[2020-07-30] MEDS: AMINO ACIDS 4.25%/D5W 1,000 ML IV SCH (17:31)
[2020-07-30] MEDS: SENNOSIDES 8.8 MG/5 ML BULK BOTTLE NGT SCH ×2 (21:41→22:30)
[2020-07-30] MEDS ORDERED: ACETAMINOPHEN 1000 MG/100 ML VIAL (NON FORMULARY) IVPB ONE (22:05)
[2020-07-30] MEDS ORDERED: SODIUM CHLORIDE 250 ML IV STA (23:35)
[2020-07-31] MEDS: SODIUM CHLORIDE 1,000 ML IV SCH (01:02)
[2020-07-31] MEDS ORDERED: PIPERACILLIN/TAZOBACTAM 3.375 GM VIAL IVPB ONE ×2 (01:08→09:03)
[2020-07-31] MEDS ORDERED: DEXTROSE 5%-WATER - 50 ML IVPB ONE ×2 (01:09→09:03)
[2020-07-31] MEDS: PIPERACILLIN/TAZOB 3.375 GM 3.375 GM in DEXTROSE 5%-WATER - 50 ML IVPB SCH ×2 (01:43→10:08)
[2020-07-31 02:19] LABS: HEMATOCRIT 24.9 % (32.4-45.2); HEMOGLOBIN 8.1 GM/dL (10.7-15.3); MCH 29.1 pg (25.7-33.7); MCHC 32.6 g/dl (32.0-36.0); MEAN CELL VOLUME 89.2 fl (80-96); MEAN PLT VOLUME 7.4 fl (7.5-11.1); PLATELET COUNT 578 K/MM3 (134-434); RBC 2.79 M/mm3 (3.60-5.2); RDW 15.4 % (11.6-15.6); WHITE BLOOD COUNT 6.4 K/mm3 (4.0-10.0)
[2020-07-31] MEDS: BACLOFEN 10 MG TABLET (FP) NGT SCH ×3 (06:16→21:26)
[2020-07-31] MEDS ORDERED: PT OWN MED DRAWER 7, Y5N ONE ×2 (09:05→21:06)
[2020-07-31] MEDS: levETIRAcetam 500 MG/5 ML ORAL SOLUTION (UNIT-DOSE CUPS) NGT SCH ×2 (10:10→21:27)
[2020-07-31] MEDS: FAMOTIDINE 20 MG TABLET NGT SCH ×2 (10:10→21:26)
[2020-07-31] MEDS: LORATADINE 10 MG TABLET NGT SCH (10:10)
[2020-07-31] MEDS: MULTIVIT-MINERALS ORAL LIQUID PO SCH (10:10)
[2020-07-31] MEDS: diazePAM 5 MG TABLET NGT SCH ×2 (10:10→21:26)
[2020-07-31] MEDS: LACTULOSE 20 GM/30 ML UDC (FOR ORAL USE ONLY) NGT SCH ×2 (10:12→21:27)
[2020-07-31 10:23] LABS: BASO % 1.3 % (0-2.0); EOS % 2.3 % (0-4.5); HEMATOCRIT 26.8 % (32.4-45.2); HEMOGLOBIN 8.7 GM/dL (10.7-15.3); LYMPH % 13.3 % (8-40); MCH 28.7 pg (25.7-33.7); MCHC 32.3 g/dl (32.0-36.0); MEAN CELL VOLUME 88.9 fl (80-96); MEAN PLT VOLUME 7.6 fl (7.5-11.1); MONO % 10.8 % (3.8-10.2); NEUT % 72.3 % (42.8-82.8); PLATELET COUNT 638 K/MM3 (134-434); RBC 3.02 M/mm3 (3.60-5.2); RDW 15.5 % (11.6-15.6); WHITE BLOOD COUNT 5.6 K/mm3 (4.0-10.0)
[2020-07-31 10:42] LABS: POTASSIUM 3.6 mmol/L (3.5-5.1)
[2020-07-31 10:44] LABS: CALCIUM 8.2 mg/dL (8.5-10.1)
[2020-07-31 10:46] LABS: ALBUMIN 2.1 g/dl (3.4-5.0)
[2020-07-31 10:47] LABS: BLOOD UREA NITROGEN 4.3 mg/dL (7-18)
[2020-07-31 10:49] LABS: CREATININE 0.2 mg/dL (0.55-1.3)
[2020-07-31 10:50] LABS: TOT PROT 5.5 g/dl (6.4-8.2)
[2020-07-31 10:54] LABS: BILIRUBIN,TOTAL 0.3 mg/dL (0.2-1)
[2020-07-31] MEDS ORDERED: POTASSIUM CHLORIDE ORAL LIQUID 20 MEQ/15 ML PO ONE (13:32)
[2020-07-31] MEDS: AMINO ACIDS 4.25%/D5W 1,000 ML IV SCH (15:00)
[2020-07-31] MEDS: SENNOSIDES 8.8 MG/5 ML BULK BOTTLE NGT SCH (21:27)
[2020-08-01] MEDS: SODIUM CHLORIDE 1,000 ML IV SCH (01:30)
[2020-08-01] MEDS: BACLOFEN 10 MG TABLET (FP) NGT SCH ×3 (05:56→21:28)
[2020-08-01] MEDS ORDERED: PT OWN MED DRAWER 7, Y5N ONE ×2 (09:47→21:22)
[2020-08-01] MEDS: levETIRAcetam 500 MG/5 ML ORAL SOLUTION (UNIT-DOSE CUPS) NGT SCH ×2 (09:57→21:27)
[2020-08-01] MEDS: diazePAM 5 MG TABLET NGT SCH ×2 (09:57→21:27)
[2020-08-01] MEDS: LORATADINE 10 MG TABLET NGT SCH (09:57)
[2020-08-01] MEDS: FAMOTIDINE 20 MG TABLET NGT SCH (09:57)
[2020-08-01] MEDS: LACTULOSE 20 GM/30 ML UDC (FOR ORAL USE ONLY) NGT SCH ×2 (09:57→21:27)
[2020-08-01] MEDS: MULTIVIT-MINERALS ORAL LIQUID PO SCH (09:57)
[2020-08-01 15:26] LABS: BASO % 0.7 % (0-2.0); EOS % 3.8 % (0-4.5); HEMATOCRIT 27.9 % (32.4-45.2); HEMOGLOBIN 8.9 GM/dL (10.7-15.3); LYMPH % 28.4 % (8-40); MCH 27.9 pg (25.7-33.7); MCHC 31.9 g/dl (32.0-36.0); MEAN CELL VOLUME 87.6 fl (80-96); MEAN PLT VOLUME 6.8 fl (7.5-11.1); MONO % 12.8 % (3.8-10.2); NEUT % 54.3 % (42.8-82.8); PLATELET COUNT 648 K/MM3 (134-434); RBC 3.19 M/mm3 (3.60-5.2); RDW 15.8 % (11.6-15.6); WHITE BLOOD COUNT 4.8 K/mm3 (4.0-10.0)
[2020-08-01 15:42] LABS: POTASSIUM 3.7 mmol/L (3.5-5.1)
[2020-08-01 15:44] LABS: CALCIUM 8.6 mg/dL (8.5-10.1)
[2020-08-01 15:45] LABS: ALBUMIN 2.1 g/dl (3.4-5.0)
[2020-08-01 15:47] LABS: CREATININE 0.2 mg/dL (0.55-1.3)
[2020-08-01 15:50] LABS: BILIRUBIN,TOTAL 0.2 mg/dL (0.2-1); TOT PROT 5.7 g/dl (6.4-8.2)
[2020-08-01 16:06] LABS: BLOOD UREA NITROGEN 2.8 mg/dL (7-18)
[2020-08-01] MEDS: AMOX TR/POTASSIUM CLAVULANATE 250 MG/5 ML BOTTLE GT SCH (16:41)
[2020-08-01] MEDS ORDERED: AMOX TR/POTASSIUM CLAVULANATE 250 MG/5 ML BOTTLE PO SCH (17:30)
[2020-08-01] MEDS: SENNOSIDES 8.8 MG/5 ML BULK BOTTLE NGT SCH (21:28)
[2020-08-01] MEDS: FAMOTIDINE 40 MG/5 ML ORAL SUSPENSION NGT SCH (21:56)
[2020-08-02] MEDS: BACLOFEN 10 MG TABLET (FP) NGT SCH (06:29)
[2020-08-02] MEDS ORDERED: PT OWN MED DRAWER 7, Y5N ONE (09:01)
[2020-08-02] MEDS: MULTIVIT-MINERALS ORAL LIQUID PO SCH (09:05)
[2020-08-02] MEDS: AMOX TR/POTASSIUM CLAVULANATE 250 MG/5 ML BOTTLE GT SCH (09:05)
[2020-08-02] MEDS: LACTULOSE 20 GM/30 ML UDC (FOR ORAL USE ONLY) NGT SCH (09:05)
[2020-08-02] MEDS: LORATADINE 10 MG TABLET NGT SCH (09:06)
[2020-08-02] MEDS: FAMOTIDINE 40 MG/5 ML ORAL SUSPENSION NGT SCH (09:06)
[2020-08-02] MEDS: diazePAM 5 MG TABLET NGT SCH (09:06)
[2020-08-02] MEDS: levETIRAcetam 500 MG/5 ML ORAL SOLUTION (UNIT-DOSE CUPS) NGT SCH (09:06)
[2020-08-02 13:40] VITALS: BP 112/73; PULSE 114; TEMP 97.8
== END 2020-08-02 14:14 | disposition home or self-care (01) | DRG 222 ==
LOC: JER 08:00 → JERBED 16:58 → J6S 20:48
PROVIDERS: ADMIT Internal Medicine; ATTEND Nurse Practitioner Acute Care
PROC: 0DH673Z Insertion of Infusion Device into Stomach, Via Natural or Artificial Opening (ICD-10-PCS; 2020-07-24)
PROC: 0DBP8ZX Excision of Rectum, Via Natural or Artificial Opening Endoscopic, Diagnostic (ICD-10-PCS; principal; 2020-07-26 12:30)
PROC: 0DH63UZ Insertion of Feeding Device into Stomach, Percutaneous Approach (ICD-10-PCS; 2020-07-30)
PROC: 3E0G76Z Introduction of Nutritional Substance into Upper GI, Via Natural or Artificial Opening (ICD-10-PCS; 2020-07-30)
DX: K62.5 Hemorrhage of anus and rectum (principal); J96.01 Acute respiratory failure with hypoxia; J69.0 Pneumonitis due to inhalation of food and vomit; D69.6 Thrombocytopenia, unspecified; D62 Acute posthemorrhagic anemia; R53.2 Functional quadriplegia; E87.0 Hyperosmolality and hypernatremia; F73 Profound intellectual disabilities; R13.10 Dysphagia, unspecified; E87.70 Fluid overload, unspecified; E83.42 Hypomagnesemia; M41.9 Scoliosis, unspecified; G40.909 Epilepsy, unspecified, not intractable, without status epilepticus; G80.9 Cerebral palsy, unspecified; E16.2 Hypoglycemia, unspecified; K59.09 Other constipation; E87.6 Hypokalemia; D64.9 Anemia, unspecified; Z20.828 Contact with and (suspected) exposure to other viral communicable diseases; R33.9 Retention of urine, unspecified; K64.8 Other hemorrhoids; K62.1 Rectal polyp; K63.89 Other specified diseases of intestine
CPT/HCPCS: 36415; 49440; 71045-TC-FY; 71250-TC; 74018-TC-FY; 74177-TC; 80053; 82272; 82308; 82962; 83605; 83735; 85025; 85027; 85610; 85730; 86850; 86900; 86901; 87040; 87086; 88305-TC; 93005; 93010; 94640; 94761; 99285-25; C9803; J0131; J0475; Q9967; U0003

== ENCOUNTER 2021-01-07 11:33 | Inpatient (IN) | payer OTHER ==
[2021-01-07 13:27] LABS: BASO % 0.2 % (0-2.0); EOS % 1.4 % (0-4.5); HEMATOCRIT 41.5 % (32.4-45.2); HEMOGLOBIN 13.7 GM/dL (10.7-15.3); LYMPH % 17.3 % (8-40); MCH 28.7 pg (25.7-33.7); MCHC 33.1 g/dl (32.0-36.0); MEAN CELL VOLUME 86.7 fl (80-96); MEAN PLT VOLUME 9.1 fl (7.5-11.1); MONO % 5.5 % (3.8-10.2); NEUT % 75.6 % (42.8-82.8); PLATELET COUNT 164 K/MM3 (134-434); RBC 4.79 M/mm3 (3.60-5.2); RDW 18.4 % (11.6-15.6); WHITE BLOOD COUNT 4.4 K/mm3 (4.0-10.0)
[2021-01-07 13:33] LABS: INR 0.97 (0.83-1.09); PROTHROMBIN TIME (PATIENT) 11.8 SEC (9.7-13.0)
[2021-01-07 13:35] LABS: ACTIVATED PTT 52.2 SECONDS (25.2-36.5)
[2021-01-07 14:15] LABS: EPI CELLS 8 /uL (0-25.1); HYALINE CASTS 3 /uL (0-3.1); PH,URINE 8.5 (5.0-8.0); URINE APPEARANCE TURBID; URINE BACTERIA 32 /uL (0-1359); URINE BILIRUBIN NEGATIVE (NEGATIVE); URINE COLOR YELLOW; URINE GLUCOSE (UA) NEGATIVE (NEGATIVE); URINE KETONE NEGATIVE (NEGATIVE); URINE LEUK ESTERASE TRACE (NEGATIVE); URINE NITRITE NEGATIVE (NEGATIVE); URINE PROTEIN NEGATIVE (NEGATIVE); URINE UROBILINOGEN 0.2 mg/dL (0.2-1.0); URINE WBC 7 /uL (0-25.8)
[2021-01-07 14:20] LABS: ALBUMIN 3.4 g/dl (3.4-5.0); BLOOD UREA NITROGEN 9.1 mg/dL (7-18); CALCIUM 10.1 mg/dL (8.5-10.1)
[2021-01-07 14:23] LABS: CREATININE 0.6 mg/dL (0.55-1.3)
[2021-01-07 14:25] LABS: BILIRUBIN,TOTAL 0.2 mg/dL (0.2-1); TOT PROT 7.5 g/dl (6.4-8.2)
[2021-01-07 14:54] LABS: URINE CRYSTALS PRESENT /hpf
[2021-01-07] MEDS ORDERED: PIPERACILLIN/TAZOB 3.375 GM 3.375 GM in DEXTROSE 5%-WATER - 50 ML IVPB ONE (16:40)
[2021-01-07] MEDS ORDERED: SODIUM CHLORIDE 0.9% 500 ML INFUS.BAG IV ONE (16:40)
[2021-01-07] MEDS ORDERED: VANCOMYCIN 1 GM in D5W (PRE-DOCKED) 1,000 MG/250 ML IVPB ONE (16:40)
[2021-01-07] MEDS ORDERED: PIPERACILLIN/TAZOB 3.375 GM 3.375 GM/50 ML BAG IVPB ONE (17:08)
[2021-01-07] MEDS ORDERED: VANCOMYCIN 1 GRAM (PRE-DOCKED) 1,000 MG/250 ML BAG IVPB ONE (17:52)
[2021-01-07] MEDS ORDERED: SODIUM CHLORIDE 1,000 ML IV SCH (21:00)
[2021-01-07] MEDS: levETIRAcetam 500 MG/5 ML ORAL SOLUTION (UNIT-DOSE CUPS) GT SCH (22:36)
[2021-01-07] MEDS: diazePAM 5 MG TABLET GT SCH (22:37)
[2021-01-07 23:34] VITALS: BMI 20.9
[2021-01-08 09:33] LABS: HEMATOCRIT 38.8 % (32.4-45.2); HEMOGLOBIN 13.1 GM/dL (10.7-15.3); MCH 29.3 pg (25.7-33.7); MCHC 33.6 g/dl (32.0-36.0); MEAN CELL VOLUME 87.3 fl (80-96); MEAN PLT VOLUME 9.5 fl (7.5-11.1); PLATELET COUNT 165 K/MM3 (134-434); RBC 4.45 M/mm3 (3.60-5.2); RDW 18.8 % (11.6-15.6); WHITE BLOOD COUNT 7.1 K/mm3 (4.0-10.0)
[2021-01-08 09:54] LABS: CALCIUM 8.9 mg/dL (8.5-10.1)
[2021-01-08 09:55] LABS: ALBUMIN 3.1 g/dl (3.4-5.0); BLOOD UREA NITROGEN 10.9 mg/dL (7-18); MAGNESIUM 2.3 mg/dL (1.8-2.4)
[2021-01-08 09:57] LABS: BILIRUBIN,TOTAL 0.3 mg/dL (0.2-1); CREATININE 0.6 mg/dL (0.55-1.3); PHOSPHOROUS 3.7 mg/dL (2.5-4.9)
[2021-01-08 09:58] LABS: TOT PROT 6.8 g/dl (6.4-8.2)
[2021-01-08] MEDS ORDERED: DEXTROSE 5%-NORMAL SALINE 1,000 ML IV SCH (10:30)
[2021-01-08] MEDS: levETIRAcetam 500 MG/5 ML ORAL SOLUTION (UNIT-DOSE CUPS) GT SCH ×2 (10:36→21:25)
[2021-01-08] MEDS: ENOXAPARIN NA (PORCINE) 40 MG/0.4 ML DISP.SYRIN SQ SCH (10:37)
[2021-01-08] MEDS: diazePAM 5 MG TABLET GT SCH ×2 (10:37→21:24)
[2021-01-08] MEDS: PANTOPRAZOLE SODIUM 40 MG VIAL IVPUSH SCH (10:44)
[2021-01-08] MEDS: SENNOSIDES 8.8 MG/5 ML BULK BOTTLE GT SCH (21:25)
[2021-01-08] MEDS: CHLORHEXIDINE GLUCONATE 0.12% 15ML CUP MM SCH (21:25)
[2021-01-09 08:38] LABS: BASO % 1.3 % (0-2.0); EOS % 0.8 % (0-4.5); HEMOGLOBIN 11.4 GM/dL (10.7-15.3); LYMPH % 30.2 % (8-40); MCHC 32.7 g/dl (32.0-36.0); MEAN CELL VOLUME 88.9 fl (80-96); MEAN PLT VOLUME 9.1 fl (7.5-11.1); MONO % 10.5 % (3.8-10.2); NEUT % 57.2 % (42.8-82.8); PLATELET COUNT 158 K/MM3 (134-434); RBC 3.93 M/mm3 (3.60-5.2); WHITE BLOOD COUNT 4.2 K/mm3 (4.0-10.0)
[2021-01-09 09:17] LABS: ALBUMIN 2.8 g/dl (3.4-5.0); CALCIUM 8.5 mg/dL (8.5-10.1)
[2021-01-09 09:18] LABS: BLOOD UREA NITROGEN 15.7 mg/dL (7-18); MAGNESIUM 2.2 mg/dL (1.8-2.4)
[2021-01-09 09:20] LABS: CREATININE 0.6 mg/dL (0.55-1.3)
[2021-01-09 09:21] LABS: PHOSPHOROUS 2.4 mg/dL (2.5-4.9)
[2021-01-09 09:23] LABS: BILIRUBIN,TOTAL 0.4 mg/dL (0.2-1); TOT PROT 6.1 g/dl (6.4-8.2)
[2021-01-09] MEDS ORDERED: PT OWN MED DRAWER 7, Y5N ONE (09:50)
[2021-01-09] MEDS: ENOXAPARIN NA (PORCINE) 40 MG/0.4 ML DISP.SYRIN SQ SCH (09:54)
[2021-01-09] MEDS: levETIRAcetam 500 MG/5 ML ORAL SOLUTION (UNIT-DOSE CUPS) GT SCH ×2 (09:54→21:25)
[2021-01-09] MEDS: diazePAM 5 MG TABLET GT SCH ×2 (09:55→21:25)
[2021-01-09] MEDS: PANTOPRAZOLE SODIUM 40 MG VIAL IVPUSH SCH (09:55)
[2021-01-09] MEDS: CHLORHEXIDINE GLUCONATE 0.12% 15ML CUP MM SCH ×2 (09:56→21:26)
[2021-01-09 16:10] LABS: HEP B CORE AB, TOT Positive (Negative)
[2021-01-09] MEDS: SENNOSIDES 8.8 MG/5 ML BULK BOTTLE GT SCH (21:26)
[2021-01-10 08:13] LABS: BASO % 0.4 % (0-2.0); EOS % 1.3 % (0-4.5); HEMATOCRIT 33.8 % (32.4-45.2); HEMOGLOBIN 11.2 GM/dL (10.7-15.3); LYMPH % 32.7 % (8-40); MCH 29.1 pg (25.7-33.7); MEAN CELL VOLUME 88.1 fl (80-96); MEAN PLT VOLUME 8.7 fl (7.5-11.1); MONO % 11.2 % (3.8-10.2); NEUT % 54.4 % (42.8-82.8); PLATELET COUNT 145 K/MM3 (134-434); RBC 3.84 M/mm3 (3.60-5.2); WHITE BLOOD COUNT 4.5 K/mm3 (4.0-10.0)
[2021-01-10 08:31] LABS: ALBUMIN 2.8 g/dl (3.4-5.0); BLOOD UREA NITROGEN 18.7 mg/dL (7-18); CALCIUM 8.5 mg/dL (8.5-10.1); MAGNESIUM 2.1 mg/dL (1.8-2.4)
[2021-01-10 08:34] LABS: CREATININE 0.5 mg/dL (0.55-1.3); PHOSPHOROUS 2.1 mg/dL (2.5-4.9)
[2021-01-10 08:36] LABS: BILIRUBIN,TOTAL 0.3 mg/dL (0.2-1); TOT PROT 6.2 g/dl (6.4-8.2)
[2021-01-10] MEDS ORDERED: PT OWN MED DRAWER 7, Y5N ONE ×3 (10:09→20:57)
[2021-01-10] MEDS: levETIRAcetam 500 MG/5 ML ORAL SOLUTION (UNIT-DOSE CUPS) GT SCH ×2 (10:36→22:48)
[2021-01-10] MEDS: PANTOPRAZOLE SODIUM 40 MG VIAL IVPUSH SCH (10:36)
[2021-01-10] MEDS: ENOXAPARIN NA (PORCINE) 40 MG/0.4 ML DISP.SYRIN SQ SCH (10:36)
[2021-01-10] MEDS: CHLORHEXIDINE GLUCONATE 0.12% 15ML CUP MM SCH ×2 (10:38→22:48)
[2021-01-10] MEDS: diazePAM 5 MG TABLET GT SCH ×2 (11:36→22:49)
[2021-01-10] MEDS: SENNOSIDES 8.8 MG/5 ML BULK BOTTLE GT SCH (22:48)
[2021-01-11] MEDS: levETIRAcetam 500 MG/5 ML ORAL SOLUTION (UNIT-DOSE CUPS) GT SCH ×3 (00:38→21:06)
[2021-01-11] MEDS: CHLORHEXIDINE GLUCONATE 0.12% 15ML CUP MM SCH ×3 (00:39→21:06)
[2021-01-11] MEDS: SENNOSIDES 8.8 MG/5 ML BULK BOTTLE GT SCH ×2 (00:40→21:06)
[2021-01-11] MEDS: diazePAM 5 MG TABLET GT SCH ×3 (00:40→21:06)
[2021-01-11] MEDS ORDERED: diazePAM CARPU-JECT 10 MG/2 ML DISP.SYRIN IVPUSH ONE (01:53)
[2021-01-11 07:39] LABS: BASO % 0.3 % (0-2.0); EOS % 1.3 % (0-4.5); HEMATOCRIT 33.8 % (32.4-45.2); HEMOGLOBIN 11.4 GM/dL (10.7-15.3); LYMPH % 16.5 % (8-40); MCH 29.4 pg (25.7-33.7); MCHC 33.6 g/dl (32.0-36.0); MEAN CELL VOLUME 87.5 fl (80-96); MEAN PLT VOLUME 8.2 fl (7.5-11.1); MONO % 8.6 % (3.8-10.2); NEUT % 73.3 % (42.8-82.8); PLATELET COUNT 152 K/MM3 (134-434); RBC 3.86 M/mm3 (3.60-5.2); RDW 18.7 % (11.6-15.6); WHITE BLOOD COUNT 6.4 K/mm3 (4.0-10.0)
[2021-01-11 08:04] LABS: ALBUMIN 2.6 g/dl (3.4-5.0); BLOOD UREA NITROGEN 17.6 mg/dL (7-18); MAGNESIUM 1.8 mg/dL (1.8-2.4)
[2021-01-11 08:07] LABS: CREATININE 0.5 mg/dL (0.55-1.3)
[2021-01-11 08:09] LABS: BILIRUBIN,TOTAL 0.4 mg/dL (0.2-1); PHOSPHOROUS 1.3 mg/dL (2.5-4.9); TOT PROT 6.1 g/dl (6.4-8.2)
[2021-01-11] MEDS ORDERED: PT OWN MED DRAWER 7, Y5N ONE ×2 (09:45→20:14)
[2021-01-11] MEDS: PANTOPRAZOLE SODIUM 40 MG VIAL IVPUSH SCH (09:53)
[2021-01-11] MEDS: ENOXAPARIN NA (PORCINE) 40 MG/0.4 ML DISP.SYRIN SQ SCH (09:53)
[2021-01-11] MEDS ORDERED: PANTOPRAZOLE SODIUM 40 MG VIAL IVPUSH SCH (10:00)
[2021-01-11] MEDS ORDERED: AMPICILLIN NA/SULBACTAM NA 1.5 GM in SODIUM CHLORIDE 100 ML IVPB SCH ×2 (12:15→12:16)
[2021-01-11] MEDS ORDERED: POTASSIUM PHOSPHATE 30 MM in DEXTROSE 5%-WATER - 500 ML IVPB ONE (13:00)
[2021-01-11] MEDS ORDERED: SODIUM CHLORIDE 100 ML IVPB ONE ×2 (13:27→20:15)
[2021-01-11] MEDS ORDERED: AMPICILLIN NA/SULBACTAM NA 1.5 GM VIAL ONE ×2 (13:27→20:14)
[2021-01-11] MEDS: AMPICILLIN NA/SULBACTAM NA 1.5 GM in SODIUM CHLORIDE 100 ML IVPB SCH ×2 (13:32→20:43)
[2021-01-12] MEDS ORDERED: AMPICILLIN NA/SULBACTAM NA 1.5 GM VIAL ONE ×4 (01:31→19:53)
[2021-01-12] MEDS ORDERED: SODIUM CHLORIDE 100 ML IVPB ONE ×4 (01:32→19:53)
[2021-01-12] MEDS: AMPICILLIN NA/SULBACTAM NA 1.5 GM in SODIUM CHLORIDE 100 ML IVPB SCH ×4 (02:14→20:00)
[2021-01-12 08:00] LABS: BASO % 0.2 % (0-2.0); HEMATOCRIT 34.3 % (32.4-45.2); HEMOGLOBIN 11.7 GM/dL (10.7-15.3); LYMPH % 14.9 % (8-40); MCH 29.5 pg (25.7-33.7); MCHC 34.1 g/dl (32.0-36.0); MEAN CELL VOLUME 86.6 fl (80-96); MEAN PLT VOLUME 8.3 fl (7.5-11.1); MONO % 7.8 % (3.8-10.2); NEUT % 75.1 % (42.8-82.8); PLATELET COUNT 150 K/MM3 (134-434); RBC 3.96 M/mm3 (3.60-5.2); RDW 18.2 % (11.6-15.6); WHITE BLOOD COUNT 6.7 K/mm3 (4.0-10.0)
[2021-01-12 08:34] LABS: CALCIUM 8.1 mg/dL (8.5-10.1)
[2021-01-12 08:35] LABS: ALBUMIN 2.6 g/dl (3.4-5.0); BLOOD UREA NITROGEN 13.6 mg/dL (7-18); MAGNESIUM 1.9 mg/dL (1.8-2.4)
[2021-01-12 08:38] LABS: CREATININE 0.4 mg/dL (0.55-1.3); PHOSPHOROUS 1.8 mg/dL (2.5-4.9)
[2021-01-12 08:39] LABS: BILIRUBIN,TOTAL 0.3 mg/dL (0.2-1); TOT PROT 6.4 g/dl (6.4-8.2)
[2021-01-12] MEDS: levETIRAcetam 500 MG/5 ML ORAL SOLUTION (UNIT-DOSE CUPS) GT SCH ×2 (09:07→21:06)
[2021-01-12] MEDS: ENOXAPARIN NA (PORCINE) 40 MG/0.4 ML DISP.SYRIN SQ SCH (09:07)
[2021-01-12] MEDS: diazePAM 5 MG TABLET GT SCH ×2 (09:07→21:06)
[2021-01-12] MEDS: CHLORHEXIDINE GLUCONATE 0.12% 15ML CUP MM SCH ×2 (09:13→21:06)
[2021-01-12] MEDS: PANTOPRAZOLE SODIUM 40 MG VIAL IVPUSH SCH (10:09)
[2021-01-12] MEDS: BACLOFEN 10 MG TABLET (FP) GT SCH ×2 (13:04→21:06)
[2021-01-12] MEDS ORDERED: NAPH,MB-DB/K PH,MBDB POWDER PACKET PEG ONE (14:33)
[2021-01-12] MEDS ORDERED: PT OWN MED DRAWER 7, Y5N ONE (19:52)
[2021-01-12] MEDS: SENNOSIDES 8.8 MG/5 ML BULK BOTTLE GT SCH (21:06)
[2021-01-12] MEDS: FAMOTIDINE 40 MG/5 ML ORAL SUSPENSION PEG SCH (21:06)
[2021-01-12] MEDS ORDERED: ACETAMINOPHEN 325 MG TABLET (FP) PO PRN (21:53)
[2021-01-13] MEDS ORDERED: SODIUM CHLORIDE 100 ML IVPB ONE ×4 (01:13→21:13)
[2021-01-13] MEDS ORDERED: AMPICILLIN NA/SULBACTAM NA 1.5 GM VIAL ONE ×4 (01:13→21:13)
[2021-01-13] MEDS: AMPICILLIN NA/SULBACTAM NA 1.5 GM in SODIUM CHLORIDE 100 ML IVPB SCH ×4 (02:03→21:55)
[2021-01-13] MEDS: BACLOFEN 10 MG TABLET (FP) GT SCH ×3 (05:08→21:56)
[2021-01-13 08:28] LABS: HEMATOCRIT 32.6 % (32.4-45.2); HEMOGLOBIN 11.1 GM/dL (10.7-15.3); MCH 29.6 pg (25.7-33.7); MCHC 34.1 g/dl (32.0-36.0); MEAN CELL VOLUME 86.6 fl (80-96); MEAN PLT VOLUME 8.4 fl (7.5-11.1); PLATELET COUNT 160 K/MM3 (134-434); RBC 3.76 M/mm3 (3.60-5.2); RDW 18.6 % (11.6-15.6)
[2021-01-13] MEDS: AMINO ACIDS/PROTEIN HYDROLYS 30 ML LIQUID.PKT PEG SCH (08:42)
[2021-01-13 08:52] LABS: CALCIUM 7.9 mg/dL (8.5-10.1)
[2021-01-13 08:53] LABS: BLOOD UREA NITROGEN 13.4 mg/dL (7-18); MAGNESIUM 2.2 mg/dL (1.8-2.4)
[2021-01-13 08:56] LABS: CREATININE 0.4 mg/dL (0.55-1.3); PHOSPHOROUS 2.2 mg/dL (2.5-4.9)
[2021-01-13 09:00] LABS: WHITE BLOOD COUNT 7.1 K/mm3 (4.0-10.0)
[2021-01-13] MEDS: FAMOTIDINE 40 MG/5 ML ORAL SUSPENSION PEG SCH ×2 (09:44→21:58)
[2021-01-13] MEDS: diazePAM 5 MG TABLET GT SCH ×2 (09:44→21:59)
[2021-01-13] MEDS: levETIRAcetam 500 MG/5 ML ORAL SOLUTION (UNIT-DOSE CUPS) GT SCH ×2 (09:44→21:56)
[2021-01-13] MEDS: ENOXAPARIN NA (PORCINE) 40 MG/0.4 ML DISP.SYRIN SQ SCH (09:44)
[2021-01-13] MEDS: CHLORHEXIDINE GLUCONATE 0.12% 15ML CUP MM SCH ×2 (09:45→21:58)
[2021-01-13] MEDS ORDERED: PT OWN MED DRAWER 7, Y5N ONE (21:12)
[2021-01-13] MEDS: SENNOSIDES 8.8 MG/5 ML BULK BOTTLE GT SCH (21:58)
[2021-01-14] MEDS ORDERED: AMPICILLIN NA/SULBACTAM NA 1.5 GM VIAL ONE ×2 (01:55→08:46)
[2021-01-14] MEDS ORDERED: SODIUM CHLORIDE 100 ML IVPB ONE ×2 (01:56→08:46)
[2021-01-14] MEDS: AMPICILLIN NA/SULBACTAM NA 1.5 GM in SODIUM CHLORIDE 100 ML IVPB SCH ×2 (03:06→09:00)
[2021-01-14] MEDS: BACLOFEN 10 MG TABLET (FP) GT SCH ×3 (06:15→21:25)
[2021-01-14] MEDS ORDERED: PT OWN MED DRAWER 7, Y5N ONE ×2 (08:46→20:26)
[2021-01-14] MEDS: diazePAM 5 MG TABLET GT SCH ×2 (09:00→21:25)
[2021-01-14] MEDS: ENOXAPARIN NA (PORCINE) 40 MG/0.4 ML DISP.SYRIN SQ SCH (09:00)
[2021-01-14] MEDS: FAMOTIDINE 40 MG/5 ML ORAL SUSPENSION PEG SCH ×2 (09:01→21:26)
[2021-01-14] MEDS: AMINO ACIDS/PROTEIN HYDROLYS 30 ML LIQUID.PKT PEG SCH (09:01)
[2021-01-14] MEDS: levETIRAcetam 500 MG/5 ML ORAL SOLUTION (UNIT-DOSE CUPS) GT SCH ×2 (09:01→21:26)
[2021-01-14] MEDS: CHLORHEXIDINE GLUCONATE 0.12% 15ML CUP MM SCH ×2 (09:02→21:26)
[2021-01-14 12:03] LABS: HEMATOCRIT 30.3 % (32.4-45.2); HEMOGLOBIN 10.1 GM/dL (10.7-15.3); MCH 29.7 pg (25.7-33.7); MCHC 33.4 g/dl (32.0-36.0); MEAN CELL VOLUME 89.1 fl (80-96); MEAN PLT VOLUME 9.3 fl (7.5-11.1); PLATELET COUNT 179 K/MM3 (134-434); RDW 18.4 % (11.6-15.6)
[2021-01-14 12:29] LABS: ALBUMIN 2.4 g/dl (3.4-5.0); CALCIUM 7.9 mg/dL (8.5-10.1)
[2021-01-14 12:32] LABS: CREATININE 0.3 mg/dL (0.55-1.3)
[2021-01-14 12:33] LABS: BILIRUBIN,TOTAL 0.4 mg/dL (0.2-1)
[2021-01-14 12:34] LABS: TOT PROT 6.3 g/dl (6.4-8.2)
[2021-01-14] MEDS ORDERED: VANCOMYCIN 1 GRAM (PRE-DOCKED) 1,000 MG/250 ML BAG IVPB ONE (15:30)
[2021-01-14] MEDS ORDERED: PIPERACILLIN/TAZOBACTAM 2.25 GM VIAL IVPB ONE ×2 (15:48→17:08)
[2021-01-14] MEDS ORDERED: DEXTROSE 5%-WATER - 50 ML IVPB ONE ×2 (15:48→17:08)
[2021-01-14] MEDS: PIPERACILLIN/TAZOB 2.25 GM 2.25 GM in DEXTROSE 5%-WATER - 50 ML IVPB SCH ×2 (16:02→17:20)
[2021-01-14] MEDS: SENNOSIDES 8.8 MG/5 ML BULK BOTTLE GT SCH (21:25)
[2021-01-15] MEDS ORDERED: PIPERACILLIN/TAZOBACTAM 2.25 GM VIAL IVPB ONE ×3 (00:46→17:25)
[2021-01-15] MEDS ORDERED: DEXTROSE 5%-WATER - 50 ML IVPB ONE ×3 (00:47→17:25)
[2021-01-15] MEDS: PIPERACILLIN/TAZOB 2.25 GM 2.25 GM in DEXTROSE 5%-WATER - 50 ML IVPB SCH ×3 (01:22→17:29)
[2021-01-15] MEDS: BACLOFEN 10 MG TABLET (FP) GT SCH ×3 (05:21→21:47)
[2021-01-15 08:18] LABS: HEMATOCRIT 31.3 % (32.4-45.2); HEMOGLOBIN 10.5 GM/dL (10.7-15.3); MCH 29.2 pg (25.7-33.7); MCHC 33.4 g/dl (32.0-36.0); MEAN CELL VOLUME 87.4 fl (80-96); MEAN PLT VOLUME 8.4 fl (7.5-11.1); PLATELET COUNT 245 K/MM3 (134-434); RBC 3.58 M/mm3 (3.60-5.2); RDW 18.3 % (11.6-15.6); WHITE BLOOD COUNT 5.7 K/mm3 (4.0-10.0)
[2021-01-15] MEDS: AMINO ACIDS/PROTEIN HYDROLYS 30 ML LIQUID.PKT PEG SCH (09:00)
[2021-01-15 09:20] LABS: BLOOD UREA NITROGEN 18.4 mg/dL (7-18)
[2021-01-15 09:21] LABS: ALBUMIN 2.5 g/dl (3.4-5.0); CALCIUM 8.1 mg/dL (8.5-10.1)
[2021-01-15 09:24] LABS: CREATININE 0.5 mg/dL (0.55-1.3)
[2021-01-15 09:25] LABS: BILIRUBIN,TOTAL 0.2 mg/dL (0.2-1); TOT PROT 6.1 g/dl (6.4-8.2)
[2021-01-15] MEDS: diazePAM 5 MG TABLET GT SCH ×2 (09:45→21:47)
[2021-01-15] MEDS: ENOXAPARIN NA (PORCINE) 40 MG/0.4 ML DISP.SYRIN SQ SCH (09:46)
[2021-01-15] MEDS: FAMOTIDINE 40 MG/5 ML ORAL SUSPENSION PEG SCH ×2 (09:46→21:46)
[2021-01-15] MEDS: levETIRAcetam 500 MG/5 ML ORAL SOLUTION (UNIT-DOSE CUPS) GT SCH ×2 (09:46→21:46)
[2021-01-15] MEDS: CHLORHEXIDINE GLUCONATE 0.12% 15ML CUP MM SCH ×2 (09:47→21:46)
[2021-01-15] MEDS: SENNOSIDES 8.8 MG/5 ML BULK BOTTLE GT SCH (21:46)
[2021-01-16] MEDS ORDERED: PIPERACILLIN/TAZOBACTAM 2.25 GM VIAL IVPB ONE ×3 (00:48→17:58)
[2021-01-16] MEDS ORDERED: DEXTROSE 5%-WATER - 50 ML IVPB ONE ×3 (00:48→17:58)
[2021-01-16] MEDS: PIPERACILLIN/TAZOB 2.25 GM 2.25 GM in DEXTROSE 5%-WATER - 50 ML IVPB SCH ×3 (01:33→18:14)
[2021-01-16] MEDS: BACLOFEN 10 MG TABLET (FP) GT SCH ×2 (05:13→16:10)
[2021-01-16 07:39] LABS: HEMATOCRIT 29.8 % (32.4-45.2); MCH 29.4 pg (25.7-33.7); MCHC 33.7 g/dl (32.0-36.0); MEAN CELL VOLUME 87.3 fl (80-96); MEAN PLT VOLUME 8.1 fl (7.5-11.1); PLATELET COUNT 319 K/MM3 (134-434); RBC 3.41 M/mm3 (3.60-5.2); RDW 18.2 % (11.6-15.6); WHITE BLOOD COUNT 5.7 K/mm3 (4.0-10.0)
[2021-01-16 08:06] LABS: ALBUMIN 2.3 g/dl (3.4-5.0); BLOOD UREA NITROGEN 22.2 mg/dL (7-18)
[2021-01-16 08:09] LABS: CREATININE 0.4 mg/dL (0.55-1.3)
[2021-01-16 08:11] LABS: BILIRUBIN,TOTAL 0.2 mg/dL (0.2-1); TOT PROT 5.8 g/dl (6.4-8.2)
[2021-01-16] MEDS: AMINO ACIDS/PROTEIN HYDROLYS 30 ML LIQUID.PKT PEG SCH (08:36)
[2021-01-16] MEDS ORDERED: PT OWN MED DRAWER 7, Y5N ONE (09:00)
[2021-01-16] MEDS: levETIRAcetam 500 MG/5 ML ORAL SOLUTION (UNIT-DOSE CUPS) GT SCH (09:23)
[2021-01-16] MEDS: FAMOTIDINE 40 MG/5 ML ORAL SUSPENSION PEG SCH (09:23)
[2021-01-16] MEDS: CHLORHEXIDINE GLUCONATE 0.12% 15ML CUP MM SCH (09:24)
[2021-01-16] MEDS: diazePAM 5 MG TABLET GT SCH (09:24)
[2021-01-17] MEDS ORDERED: PT OWN MED DRAWER 7, Y5N ONE ×2 (00:04→10:24)
[2021-01-17] MEDS: levETIRAcetam 500 MG/5 ML ORAL SOLUTION (UNIT-DOSE CUPS) GT SCH ×2 (00:06→10:33)
[2021-01-17] MEDS: BACLOFEN 10 MG TABLET (FP) GT SCH ×3 (00:06→14:44)
[2021-01-17] MEDS: FAMOTIDINE 40 MG/5 ML ORAL SUSPENSION PEG SCH ×2 (00:06→10:34)
[2021-01-17] MEDS: diazePAM 5 MG TABLET GT SCH ×2 (00:06→10:33)
[2021-01-17] MEDS: SENNOSIDES 8.8 MG/5 ML BULK BOTTLE GT SCH (00:07)
[2021-01-17] MEDS: CHLORHEXIDINE GLUCONATE 0.12% 15ML CUP MM SCH ×2 (00:07→10:34)
[2021-01-17] MEDS: PIPERACILLIN/TAZOB 2.25 GM 2.25 GM in DEXTROSE 5%-WATER - 50 ML IVPB SCH ×2 (03:52→10:33)
[2021-01-17 08:30] LABS: HEMATOCRIT 32.3 % (32.4-45.2); MCH 29.5 pg (25.7-33.7); MCHC 34.1 g/dl (32.0-36.0); MEAN CELL VOLUME 86.6 fl (80-96); MEAN PLT VOLUME 7.6 fl (7.5-11.1); PLATELET COUNT 416 K/MM3 (134-434); RBC 3.73 M/mm3 (3.60-5.2); RDW 18.1 % (11.6-15.6); WHITE BLOOD COUNT 6.6 K/mm3 (4.0-10.0)
[2021-01-17 08:52] LABS: ALBUMIN 2.5 g/dl (3.4-5.0); BLOOD UREA NITROGEN 19.4 mg/dL (7-18); CALCIUM 8.7 mg/dL (8.5-10.1)
[2021-01-17 08:56] LABS: CREATININE 0.4 mg/dL (0.55-1.3)
[2021-01-17] MEDS: AMINO ACIDS/PROTEIN HYDROLYS 30 ML LIQUID.PKT PEG SCH (08:56)
[2021-01-17 08:57] LABS: BILIRUBIN,TOTAL 0.2 mg/dL (0.2-1); TOT PROT 6.4 g/dl (6.4-8.2)
[2021-01-17] MEDS ORDERED: PIPERACILLIN/TAZOBACTAM 2.25 GM VIAL IVPB ONE (10:24)
[2021-01-17] MEDS ORDERED: DEXTROSE 5%-WATER - 50 ML IVPB ONE (10:25)
[2021-01-17] MEDS ORDERED: SODIUM CHLORIDE 250 ML IV STA (11:16)
[2021-01-17 16:02] VITALS: BP 94/55; PULSE 81; TEMP 98.8
== END 2021-01-17 17:30 | disposition home or self-care (01) | DRG 137 ==
LOC: JER 11:33 → JERBED 16:19 → J8W 22:02
PROVIDERS: ADMIT Internal Medicine; ATTEND Internal Medicine
DX: J69.0 Pneumonitis due to inhalation of food and vomit (principal); G40.909 Epilepsy, unspecified, not intractable, without status epilepticus; F73 Profound intellectual disabilities; K59.09 Other constipation; G80.0 Spastic quadriplegic cerebral palsy; R62.50 Unspecified lack of expected normal physiological development in childhood; J98.11 Atelectasis; J96.01 Acute respiratory failure with hypoxia; E83.39 Other disorders of phosphorus metabolism; R11.2 Nausea with vomiting, unspecified; R50.9 Fever, unspecified; K56.609 Unspecified intestinal obstruction, unspecified as to partial versus complete obstruction; R74.01 Elevation of levels of liver transaminase levels; Z93.1 Gastrostomy status
CPT/HCPCS: 36415; 71045-TC-FY; 74177-TC; 76705-TC; 80048; 80053; 81003; 83690; 83735; 84100; 84443; 85025; 85027; 85610; 85730; 86704; 86706; 86707; 86708; 86709; 87040; 87070; 87086; 87186; 87205; 87340; 87804; 87899; 87902; 93005; 93010; 99285-25; C9803; J0475; Q9967; U0003; U0005

== ENCOUNTER 2021-03-25 13:11 | Inpatient (IN) | payer OTHER ==
[2021-03-25] MEDS ORDERED: ONDANSETRON 4 MG/2 ML VIAL IVPUSH ONE (14:09)
[2021-03-25] MEDS ORDERED: ONDANSETRON 4 MG/2 ML VIAL ONE (14:17)
[2021-03-25] MEDS ORDERED: SODIUM CHLORIDE 0.9% 500 ML INFUS.BAG IV ONE (14:19)
[2021-03-25 15:14] LABS: BASO % 0.3 % (0-2.0); HEMATOCRIT 47.2 % (32.4-45.2); HEMOGLOBIN 15.9 GM/dL (10.7-15.3); LYMPH % 15.7 % (8-40); MCH 30.2 pg (25.7-33.7); MCHC 33.7 g/dl (32.0-36.0); MEAN CELL VOLUME 89.8 fl (80-96); MONO % 5.2 % (3.8-10.2); NEUT % 77.8 % (42.8-82.8); PLATELET COUNT 223 10^3/uL (134-434); RBC 5.25 M/mm3 (3.60-5.2); RDW 15.4 % (11.6-15.6)
[2021-03-25 15:21] LABS: INR 0.92 (0.83-1.09); PROTHROMBIN TIME (PATIENT) 11.3 SEC (9.7-13.0)
[2021-03-25 15:24] LABS: ACTIVATED PTT 63.3 SECONDS (25.2-36.5)
[2021-03-25 15:34] LABS: ALBUMIN 3.9 g/dl (3.4-5.0); CALCIUM 10.3 mg/dL (8.5-10.1)
[2021-03-25 15:35] LABS: BLOOD UREA NITROGEN 14.1 mg/dL (7-18)
[2021-03-25 15:38] LABS: CREATININE 0.6 mg/dL (0.55-1.3)
[2021-03-25 15:39] LABS: BILIRUBIN,TOTAL 0.2 mg/dL (0.2-1); TOT PROT 8.4 g/dl (6.4-8.2)
[2021-03-25] MEDS ORDERED: METOCLOPRAMIDE HCL INJECTION 10 MG/2 ML VIAL IVPUSH ONE (18:56)
[2021-03-25] MEDS ORDERED: METOCLOPRAMIDE HCL INJECTION 10 MG/2 ML VIAL ONE (19:26)
[2021-03-25 22:42] LABS: EPI CELLS 2 /uL (0-25.1); HYALINE CASTS 2 /uL (0-3.1); PH,URINE >= 9.0 (5.0-8.0); URINE APPEARANCE CLOUDY; URINE BACTERIA 5587 /uL (0-1359); URINE BILIRUBIN NEGATIVE (NEGATIVE); URINE COLOR YELLOW; URINE GLUCOSE (UA) NEGATIVE (NEGATIVE); URINE KETONE NEGATIVE (NEGATIVE); URINE LEUK ESTERASE 3+ (NEGATIVE); URINE NITRITE NEGATIVE (NEGATIVE); URINE PROTEIN TRACE (NEGATIVE); URINE RBC 9 /uL (0-23.9); URINE WBC 532 /uL (0-25.8)
[2021-03-25] MEDS ORDERED: CEFTRIAXONE 1,000 MG in DEXTROSE 5%-WATER - 50 ML IVPB ONE (22:48)
[2021-03-25] MEDS ORDERED: CEFTRIAXONE 1 GM/50 ML BAG ONE (23:05)
[2021-03-26] MEDS ORDERED: SODIUM CHLORIDE 500 ML IV STA (03:25)
[2021-03-26] MEDS ORDERED: levETIRAcetam 500 MG/5 ML INJECTION VIAL IVPB ONE (03:29)
[2021-03-26] MEDS: METOCLOPRAMIDE HCL INJECTION 10 MG/2 ML VIAL IVPUSH SCH ×4 (04:41→22:48)
[2021-03-26] MEDS: SODIUM CHLORIDE 1,000 ML IV SCH (04:41)
[2021-03-26 05:22] LABS: BASO % 0.5 % (0-2.0); EOS % 0.1 % (0-4.5); HEMATOCRIT 43.4 % (32.4-45.2); HEMOGLOBIN 14.4 GM/dL (10.7-15.3); LYMPH % 4.1 % (8-40); MCH 29.7 pg (25.7-33.7); MCHC 33.1 g/dl (32.0-36.0); MEAN CELL VOLUME 89.7 fl (80-96); MEAN PLT VOLUME 8.6 fl (7.5-11.1); MONO % 2.9 % (3.8-10.2); NEUT % 92.4 % (42.8-82.8); PLATELET COUNT 212 10^3/uL (134-434); RBC 4.84 M/mm3 (3.60-5.2); RDW 15.7 % (11.6-15.6); WHITE BLOOD COUNT 11.7 K/mm3 (4.0-10.0)
[2021-03-26 05:47] LABS: ALBUMIN 3.4 g/dl (3.4-5.0); BLOOD UREA NITROGEN 15.4 mg/dL (7-18); MAGNESIUM 2.1 mg/dL (1.8-2.4)
[2021-03-26 05:51] LABS: CREATININE 0.6 mg/dL (0.55-1.3); PHOSPHOROUS 3.5 mg/dL (2.5-4.9)
[2021-03-26 05:52] LABS: BILIRUBIN,TOTAL 0.4 mg/dL (0.2-1); TOT PROT 7.4 g/dl (6.4-8.2)
[2021-03-26] MEDS: ONDANSETRON 4 MG/2 ML VIAL IVPUSH SCH ×5 (06:14→18:20)
[2021-03-26] MEDS: SCOPOLAMINE HYDROBROMIDE 1 PATCH PATCH.TD72 TD SCH (06:14)
[2021-03-26] MEDS ORDERED: ONDANSETRON 4 MG/2 ML VIAL ONE ×2 (06:15→09:09)
[2021-03-26 07:04] LABS: ANISOCYTOSIS 1+; MACROCYTOSIS 0; PLATELET ESTIMATE NORMAL
[2021-03-26] MEDS ORDERED: levETIRAcetam 500 MG TABLET (FP) PO ONE (09:09)
[2021-03-26] MEDS ORDERED: METOCLOPRAMIDE HCL INJECTION 10 MG/2 ML VIAL ONE (09:09)
[2021-03-26] MEDS ORDERED: ENOXAPARIN NA (PORCINE) 40 MG/0.4 ML DISP.SYRIN SQ ONE (09:10)
[2021-03-26] MEDS ORDERED: CEFTRIAXONE 1 GM/50 ML BAG ONE (09:10)
[2021-03-26] MEDS ORDERED: FAMOTIDINE 20 MG/50 ML IVPB 20 MG/50 ML MG IVPB ONE (09:10)
[2021-03-26] MEDS: ENOXAPARIN NA (PORCINE) 40 MG/0.4 ML DISP.SYRIN SQ SCH (09:34)
[2021-03-26] MEDS ORDERED: CEFTRIAXONE 1,000 MG in DEXTROSE 5%-WATER - 50 ML IVPB SCH (10:00)
[2021-03-26] MEDS: FAMOTIDINE 20 MG/50 ML IVPB 20 MG/50 ML MG IVPB SCH ×2 (10:27→23:05)
[2021-03-26] MEDS: levETIRAcetam 500 MG/5 ML ORAL SOLUTION (UNIT-DOSE CUPS) GT SCH (11:30)
[2021-03-26 15:43] VITALS: BMI 20.1
[2021-03-26] MEDS ORDERED: LACTULOSE 20 GM/30 ML UDC (FOR ORAL USE ONLY) PO PRN (17:37)
[2021-03-26] MEDS ORDERED: BISACODYL 10 MG SUPP.RECT PR ONE (18:14)
[2021-03-26] MEDS: LACTULOSE 20 GM/30 ML UDC (FOR ORAL USE ONLY) GT SCH (23:00)
[2021-03-26] MEDS: diazePAM 5 MG TABLET GT SCH (23:00)
[2021-03-26] MEDS: SENNOSIDES 8.8 MG/5 ML BULK BOTTLE GT SCH (23:00)
[2021-03-26] MEDS: BACLOFEN 10 MG TABLET (FP) GT SCH (23:00)
[2021-03-27] MEDS: levETIRAcetam 500 MG/5 ML ORAL SOLUTION (UNIT-DOSE CUPS) GT SCH ×4 (00:26→22:18)
[2021-03-27] MEDS: ONDANSETRON 4 MG/2 ML VIAL IVPUSH SCH ×4 (02:02→17:35)
[2021-03-27] MEDS: METOCLOPRAMIDE HCL INJECTION 10 MG/2 ML VIAL IVPUSH SCH ×2 (04:46→11:04)
[2021-03-27] MEDS: SODIUM CHLORIDE 1,000 ML IV SCH (04:51)
[2021-03-27] MEDS: BACLOFEN 10 MG TABLET (FP) GT SCH ×3 (06:02→22:19)
[2021-03-27] MEDS: LACTULOSE 20 GM/30 ML UDC (FOR ORAL USE ONLY) GT SCH ×3 (06:02→22:19)
[2021-03-27] MEDS ORDERED: ACETAMINOPHEN 1000 MG/100 ML VIAL (NON FORMULARY) IVPB ONE (06:11)
[2021-03-27 08:11] LABS: HEMATOCRIT 34.4 % (32.4-45.2); HEMOGLOBIN 11.3 GM/dL (10.7-15.3); MCH 30.1 pg (25.7-33.7); MCHC 32.8 g/dl (32.0-36.0); MEAN CELL VOLUME 91.8 fl (80-96); MEAN PLT VOLUME 9.8 fl (7.5-11.1); PLATELET COUNT 156 10^3/uL (134-434); RBC 3.74 M/mm3 (3.60-5.2); RDW 15.6 % (11.6-15.6); WHITE BLOOD COUNT 5.9 K/mm3 (4.0-10.0)
[2021-03-27 08:27] LABS: ALBUMIN 2.8 g/dl (3.4-5.0); BLOOD UREA NITROGEN 16.8 mg/dL (7-18); CALCIUM 8.2 mg/dL (8.5-10.1)
[2021-03-27 08:30] LABS: CREATININE 0.5 mg/dL (0.55-1.3)
[2021-03-27 08:32] LABS: BILIRUBIN,TOTAL 0.3 mg/dL (0.2-1); TOT PROT 6.2 g/dl (6.4-8.2)
[2021-03-27] MEDS ORDERED: cefTRIAXone SODIUM 1 GM VIAL ONE (10:51)
[2021-03-27] MEDS ORDERED: PT OWN MED DRAWER 7, Y5N ONE ×2 (10:51→13:55)
[2021-03-27] MEDS ORDERED: DEXTROSE 5%-WATER - 50 ML IVPB ONE (10:51)
[2021-03-27] MEDS: CEFTRIAXONE 1 GM in DEXTROSE 5%-WATER - 50 ML IVPB SCH (10:58)
[2021-03-27] MEDS: ENOXAPARIN NA (PORCINE) 40 MG/0.4 ML DISP.SYRIN SQ SCH (11:00)
[2021-03-27] MEDS: LORATADINE 10 MG TABLET GT SCH (11:01)
[2021-03-27] MEDS: diazePAM 5 MG TABLET GT SCH ×2 (11:02→22:19)
[2021-03-27] MEDS ORDERED: METOCLOPRAMIDE HCL INJECTION 10 MG/2 ML VIAL IVPUSH PRN (12:37)
[2021-03-27] MEDS: FAMOTIDINE 20 MG/50 ML IVPB 20 MG/50 ML MG IVPB SCH ×2 (12:54→22:19)
[2021-03-27] MEDS: NAPH,MB-DB/K PH,MBDB POWDER PACKET PEG SCH ×2 (14:14→22:19)
[2021-03-27] MEDS ORDERED: ONDANSETRON 4 MG/2 ML VIAL IVPUSH PRN (17:42)
[2021-03-27] MEDS: SENNOSIDES 8.8 MG/5 ML BULK BOTTLE GT SCH (22:18)
[2021-03-28] MEDS: LACTULOSE 20 GM/30 ML UDC (FOR ORAL USE ONLY) GT SCH ×3 (06:18→22:52)
[2021-03-28] MEDS: BACLOFEN 10 MG TABLET (FP) GT SCH ×3 (06:18→22:52)
[2021-03-28] MEDS: NAPH,MB-DB/K PH,MBDB POWDER PACKET PEG SCH ×2 (06:18→15:11)
[2021-03-28 09:13] LABS: HEMATOCRIT 33.4 % (32.4-45.2); HEMOGLOBIN 11.1 GM/dL (10.7-15.3); MCH 30.4 pg (25.7-33.7); MCHC 33.3 g/dl (32.0-36.0); MEAN CELL VOLUME 91.2 fl (80-96); MEAN PLT VOLUME 8.5 fl (7.5-11.1); PLATELET COUNT 173 10^3/uL (134-434); RBC 3.67 M/mm3 (3.60-5.2); RDW 15.6 % (11.6-15.6); WHITE BLOOD COUNT 6.7 K/mm3 (4.0-10.0)
[2021-03-28 09:36] LABS: ALBUMIN 2.9 g/dl (3.4-5.0); CALCIUM 8.4 mg/dL (8.5-10.1)
[2021-03-28 09:37] LABS: BLOOD UREA NITROGEN 16.5 mg/dL (7-18)
[2021-03-28 09:40] LABS: CREATININE 0.5 mg/dL (0.55-1.3); PHOSPHOROUS 2.7 mg/dL (2.5-4.9)
[2021-03-28 09:41] LABS: BILIRUBIN,TOTAL 0.2 mg/dL (0.2-1); TOT PROT 6.4 g/dl (6.4-8.2)
[2021-03-28] MEDS ORDERED: cefTRIAXone SODIUM 1 GM VIAL ONE (10:56)
[2021-03-28] MEDS ORDERED: DEXTROSE 5%-WATER - 50 ML IVPB ONE (10:56)
[2021-03-28] MEDS ORDERED: PT OWN MED DRAWER 7, Y5N ONE ×2 (10:56→22:41)
[2021-03-28] MEDS: CEFTRIAXONE 1 GM in DEXTROSE 5%-WATER - 50 ML IVPB SCH (11:09)
[2021-03-28] MEDS: diazePAM 5 MG TABLET GT SCH ×2 (11:11→22:52)
[2021-03-28] MEDS: LORATADINE 10 MG TABLET GT SCH (11:11)
[2021-03-28] MEDS: FAMOTIDINE 20 MG/50 ML IVPB 20 MG/50 ML MG IVPB SCH (11:13)
[2021-03-28] MEDS: ENOXAPARIN NA (PORCINE) 40 MG/0.4 ML DISP.SYRIN SQ SCH (11:14)
[2021-03-28] MEDS: levETIRAcetam 500 MG/5 ML ORAL SOLUTION (UNIT-DOSE CUPS) GT SCH ×2 (11:14→22:53)
[2021-03-28] MEDS ORDERED: SODIUM CHLORIDE 0.45% 1,000 ML IV SCH (11:45)
[2021-03-28] MEDS: AMINO ACIDS 4.25%/D5W 1,000 ML IV SCH (12:55)
[2021-03-28] MEDS ORDERED: FAT EMULSIONS 20% 250 ML PREMIX INFUS.BAG IV SCH (22:00)
[2021-03-28] MEDS: SENNOSIDES 8.8 MG/5 ML BULK BOTTLE GT SCH (22:53)
[2021-03-28] MEDS ORDERED: ACETAMINOPHEN 1000 MG/100 ML VIAL (NON FORMULARY) IVPB ONE (23:45)
[2021-03-29] MEDS: FAMOTIDINE 20 MG/50 ML IVPB 20 MG/50 ML MG IVPB SCH ×3 (00:52→22:16)
[2021-03-29] MEDS: FAT EMULSION/OLIVE/SOY/PHOSPHO 250 ML IV SCH ×2 (03:29→23:02)
[2021-03-29] MEDS: SCOPOLAMINE HYDROBROMIDE 1 PATCH PATCH.TD72 TD SCH (04:25)
[2021-03-29] MEDS: LACTULOSE 20 GM/30 ML UDC (FOR ORAL USE ONLY) GT SCH ×3 (05:03→22:16)
[2021-03-29] MEDS: BACLOFEN 10 MG TABLET (FP) GT SCH ×3 (05:03→22:18)
[2021-03-29 08:30] LABS: HEMATOCRIT 33.2 % (32.4-45.2); HEMOGLOBIN 11.1 GM/dL (10.7-15.3); MCH 30.2 pg (25.7-33.7); MCHC 33.4 g/dl (32.0-36.0); MEAN CELL VOLUME 90.3 fl (80-96); MEAN PLT VOLUME 8.5 fl (7.5-11.1); PLATELET COUNT 160 10^3/uL (134-434); RBC 3.67 M/mm3 (3.60-5.2); WHITE BLOOD COUNT 6.4 K/mm3 (4.0-10.0)
[2021-03-29 08:52] LABS: ALBUMIN 2.6 g/dl (3.4-5.0); CALCIUM 7.8 mg/dL (8.5-10.1)
[2021-03-29 08:53] LABS: BLOOD UREA NITROGEN 15.9 mg/dL (7-18); MAGNESIUM 1.7 mg/dL (1.8-2.4)
[2021-03-29 08:56] LABS: CREATININE 0.4 mg/dL (0.55-1.3); PHOSPHOROUS 1.8 mg/dL (2.5-4.9)
[2021-03-29 08:57] LABS: BILIRUBIN,TOTAL 0.5 mg/dL (0.2-1); TOT PROT 5.7 g/dl (6.4-8.2)
[2021-03-29] MEDS ORDERED: PT OWN MED DRAWER 7, Y5N ONE (09:02)
[2021-03-29] MEDS ORDERED: DEXTROSE 5%-WATER - 50 ML IVPB ONE (09:03)
[2021-03-29] MEDS ORDERED: cefTRIAXone SODIUM 1 GM VIAL ONE (09:03)
[2021-03-29] MEDS ORDERED: KCL 10 MEQ IVPB 10 MEQ/100 ML INFUS.BAG IVPB SCH (09:15)
[2021-03-29] MEDS ORDERED: MAGNESIUM OXIDE 400 MG TABLET (FP) GT ONE (10:00)
[2021-03-29] MEDS ORDERED: POTASSIUM CHLORIDE ORAL LIQUID 20 MEQ/15 ML GT ONE (10:00)
[2021-03-29] MEDS ORDERED: POTASSIUM PHOSPHATE 30 MM in DEXTROSE 5%-WATER - 500 ML IVPB ONE (10:00)
[2021-03-29] MEDS: ENOXAPARIN NA (PORCINE) 40 MG/0.4 ML DISP.SYRIN SQ SCH (10:38)
[2021-03-29] MEDS: levETIRAcetam 500 MG/5 ML ORAL SOLUTION (UNIT-DOSE CUPS) GT SCH ×2 (10:38→22:17)
[2021-03-29] MEDS: CEFTRIAXONE 1 GM in DEXTROSE 5%-WATER - 50 ML IVPB SCH (10:38)
[2021-03-29] MEDS: diazePAM 5 MG TABLET GT SCH ×2 (10:39→22:18)
[2021-03-29] MEDS: LORATADINE 10 MG TABLET GT SCH (10:39)
[2021-03-29] MEDS: AMINO ACIDS 4.25%/D5W 1,000 ML IV SCH (19:00)
[2021-03-29] MEDS ORDERED: BISACODYL 10 MG SUPP.RECT PR PRN (21:33)
[2021-03-29] MEDS ORDERED: MAGNESIUM CITRATE 300 ML BOTTLE PEG ONE (21:34)
[2021-03-29] MEDS: SENNOSIDES 8.8 MG/5 ML BULK BOTTLE GT SCH (22:17)
[2021-03-30] MEDS: BACLOFEN 10 MG TABLET (FP) GT SCH ×3 (06:28→22:22)
[2021-03-30] MEDS: LACTULOSE 20 GM/30 ML UDC (FOR ORAL USE ONLY) GT SCH ×3 (06:28→22:21)
[2021-03-30 07:18] LABS: HEMATOCRIT 37.2 % (32.4-45.2); HEMOGLOBIN 12.3 GM/dL (10.7-15.3); MCH 30.1 pg (25.7-33.7); MCHC 33.1 g/dl (32.0-36.0); MEAN CELL VOLUME 90.9 fl (80-96); MEAN PLT VOLUME 9.2 fl (7.5-11.1); PLATELET COUNT 158 10^3/uL (134-434); RBC 4.09 M/mm3 (3.60-5.2); RDW 15.3 % (11.6-15.6)
[2021-03-30 07:33] LABS: CALCIUM 8.2 mg/dL (8.5-10.1)
[2021-03-30 07:34] LABS: ALBUMIN 2.7 g/dl (3.4-5.0); BLOOD UREA NITROGEN 7.2 mg/dL (7-18); MAGNESIUM 1.9 mg/dL (1.8-2.4)
[2021-03-30 07:37] LABS: CREATININE 0.4 mg/dL (0.55-1.3); PHOSPHOROUS 2.1 mg/dL (2.5-4.9)
[2021-03-30 07:38] LABS: BILIRUBIN,TOTAL 0.2 mg/dL (0.2-1); TOT PROT 6.1 g/dl (6.4-8.2)
[2021-03-30 08:25] LABS: WHITE BLOOD COUNT 8.9 K/mm3 (4.0-10.0)
[2021-03-30] MEDS ORDERED: cefTRIAXone SODIUM 1 GM VIAL ONE (08:55)
[2021-03-30] MEDS ORDERED: DEXTROSE 5%-WATER - 50 ML IVPB ONE (08:56)
[2021-03-30] MEDS: CEFTRIAXONE 1 GM in DEXTROSE 5%-WATER - 50 ML IVPB SCH (09:03)
[2021-03-30] MEDS: ENOXAPARIN NA (PORCINE) 40 MG/0.4 ML DISP.SYRIN SQ SCH (09:04)
[2021-03-30] MEDS: levETIRAcetam 500 MG/5 ML ORAL SOLUTION (UNIT-DOSE CUPS) GT SCH ×2 (09:04→22:22)
[2021-03-30] MEDS: FAMOTIDINE 20 MG/50 ML IVPB 20 MG/50 ML MG IVPB SCH ×2 (09:04→22:22)
[2021-03-30] MEDS: LORATADINE 10 MG TABLET GT SCH (09:05)
[2021-03-30] MEDS: diazePAM 5 MG TABLET GT SCH ×2 (09:05→22:23)
[2021-03-30] MEDS: AMINO ACIDS 4.25%/D5W 1,000 ML IV SCH ×2 (14:31→20:47)
[2021-03-30] MEDS ORDERED: ACETAMINOPHEN 325 MG TABLET (FP) PO ONE (21:21)
[2021-03-30] MEDS ORDERED: NAPH,MB-DB/K PH,MBDB POWDER PACKET PO ONE (21:28)
[2021-03-30] MEDS: SENNOSIDES 8.8 MG/5 ML BULK BOTTLE GT SCH (22:22)
[2021-03-30] MEDS: FAT EMULSION/OLIVE/SOY/PHOSPHO 250 ML IV SCH (23:16)
[2021-03-31] MEDS ORDERED: NAPH,MB-DB/K PH,MBDB POWDER PACKET PO ONE (02:00)
[2021-03-31] MEDS ORDERED: ACETAMINOPHEN 650 MG/20.3 ML ORAL SOLUTION (CUPS) PO PRN (03:00)
[2021-03-31] MEDS: LACTULOSE 20 GM/30 ML UDC (FOR ORAL USE ONLY) GT SCH ×3 (05:59→22:27)
[2021-03-31] MEDS: BACLOFEN 10 MG TABLET (FP) GT SCH ×3 (06:00→22:25)
[2021-03-31 08:24] LABS: PH,URINE 8.5 (5.0-8.0); URINE APPEARANCE CLEAR; URINE BILIRUBIN NEGATIVE (NEGATIVE); URINE COLOR YELLOW; URINE GLUCOSE (UA) NEGATIVE (NEGATIVE); URINE KETONE NEGATIVE (NEGATIVE); URINE LEUK ESTERASE NEGATIVE (NEGATIVE); URINE NITRITE NEGATIVE (NEGATIVE); URINE PROTEIN NEGATIVE (NEGATIVE); URINE UROBILINOGEN 0.2 mg/dL (0.2-1.0)
[2021-03-31] MEDS ORDERED: DEXTROSE 5%-WATER - 50 ML IVPB ONE (09:17)
[2021-03-31] MEDS ORDERED: cefTRIAXone SODIUM 1 GM VIAL ONE (09:17)
[2021-03-31] MEDS: ENOXAPARIN NA (PORCINE) 40 MG/0.4 ML DISP.SYRIN SQ SCH (09:32)
[2021-03-31] MEDS: CEFTRIAXONE 1 GM in DEXTROSE 5%-WATER - 50 ML IVPB SCH (09:32)
[2021-03-31] MEDS: diazePAM 5 MG TABLET GT SCH ×2 (09:33→22:25)
[2021-03-31] MEDS: levETIRAcetam 500 MG/5 ML ORAL SOLUTION (UNIT-DOSE CUPS) GT SCH ×2 (09:33→22:28)
[2021-03-31] MEDS: LORATADINE 10 MG TABLET GT SCH (09:33)
[2021-03-31] MEDS: FAMOTIDINE 20 MG/50 ML IVPB 20 MG/50 ML MG IVPB SCH ×2 (10:20→22:27)
[2021-03-31 11:43] LABS: BASO % 0.7 % (0-2.0); EOS % 2.1 % (0-4.5); HEMATOCRIT 38.6 % (32.4-45.2); HEMOGLOBIN 12.9 GM/dL (10.7-15.3); LYMPH % 16.7 % (8-40); MCH 30.1 pg (25.7-33.7); MCHC 33.4 g/dl (32.0-36.0); MEAN PLT VOLUME 8.7 fl (7.5-11.1); NEUT % 73.5 % (42.8-82.8); PLATELET COUNT 220 10^3/uL (134-434); RBC 4.29 M/mm3 (3.60-5.2); RDW 15.1 % (11.6-15.6); WHITE BLOOD COUNT 5.7 K/mm3 (4.0-10.0)
[2021-03-31 12:11] LABS: ALBUMIN 2.9 g/dl (3.4-5.0); CALCIUM 8.5 mg/dL (8.5-10.1)
[2021-03-31 12:13] LABS: MAGNESIUM 2.2 mg/dL (1.8-2.4)
[2021-03-31 12:16] LABS: CREATININE 0.5 mg/dL (0.55-1.3)
[2021-03-31 12:17] LABS: BILIRUBIN,TOTAL 0.2 mg/dL (0.2-1); TOT PROT 6.6 g/dl (6.4-8.2)
[2021-03-31] MEDS ORDERED: POTASSIUM CHLORIDE ORAL LIQUID 20 MEQ/15 ML GT ONE (13:44)
[2021-03-31] MEDS: AMINO ACIDS 4.25%/D5W 1,000 ML IV SCH (14:47)
[2021-03-31] MEDS: SENNOSIDES 8.8 MG/5 ML BULK BOTTLE GT SCH (22:28)
[2021-04-01] MEDS: SCOPOLAMINE HYDROBROMIDE 1 PATCH PATCH.TD72 TD SCH (02:58)
[2021-04-01] MEDS: LACTULOSE 20 GM/30 ML UDC (FOR ORAL USE ONLY) GT SCH ×2 (05:25→14:00)
[2021-04-01] MEDS: BACLOFEN 10 MG TABLET (FP) GT SCH ×2 (05:25→14:00)
[2021-04-01 07:02] VITALS: BP 132/70; PULSE 107; TEMP 98.3
[2021-04-01] MEDS ORDERED: cefTRIAXone SODIUM 1 GM VIAL ONE (08:57)
[2021-04-01] MEDS ORDERED: DEXTROSE 5%-WATER - 50 ML IVPB ONE (08:57)
[2021-04-01] MEDS: FAMOTIDINE 20 MG/50 ML IVPB 20 MG/50 ML MG IVPB SCH (09:11)
[2021-04-01] MEDS: ENOXAPARIN NA (PORCINE) 40 MG/0.4 ML DISP.SYRIN SQ SCH (09:12)
[2021-04-01] MEDS: LORATADINE 10 MG TABLET GT SCH (09:12)
[2021-04-01] MEDS: diazePAM 5 MG TABLET GT SCH (09:12)
[2021-04-01] MEDS: levETIRAcetam 500 MG/5 ML ORAL SOLUTION (UNIT-DOSE CUPS) GT SCH (09:12)
[2021-04-01] MEDS: CEFTRIAXONE 1 GM in DEXTROSE 5%-WATER - 50 ML IVPB SCH (09:12)
[2021-04-01 10:31] LABS: HEMATOCRIT 36.8 % (32.4-45.2); HEMOGLOBIN 12.4 GM/dL (10.7-15.3); MCH 30.6 pg (25.7-33.7); MCHC 33.7 g/dl (32.0-36.0); MEAN CELL VOLUME 90.8 fl (80-96); PLATELET COUNT 254 10^3/uL (134-434); RBC 4.05 M/mm3 (3.60-5.2); RDW 14.9 % (11.6-15.6); WHITE BLOOD COUNT 6.9 K/mm3 (4.0-10.0)
[2021-04-01 10:53] LABS: CALCIUM 8.4 mg/dL (8.5-10.1)
[2021-04-01 10:55] LABS: BLOOD UREA NITROGEN 10.1 mg/dL (7-18); MAGNESIUM 2.2 mg/dL (1.8-2.4)
[2021-04-01 10:58] LABS: CREATININE 0.4 mg/dL (0.55-1.3); PHOSPHOROUS 2.9 mg/dL (2.5-4.9)
== END 2021-04-01 17:17 | DRG 254 ==
LOC: JER 13:11 → JERBED 03-26 04:28 → J7W 03-26 12:57
PROVIDERS: ADMIT Hospitalist; ATTEND Student in an Organized Health Care Education/Training Program
DX: K59.00 Constipation, unspecified (principal); N39.0 Urinary tract infection, site not specified; R11.2 Nausea with vomiting, unspecified; B96.1 Klebsiella pneumoniae [K. pneumoniae] as the cause of diseases classified elsewhere; R33.9 Retention of urine, unspecified; K56.7 Ileus, unspecified; Z93.1 Gastrostomy status; E83.39 Other disorders of phosphorus metabolism; R53.2 Functional quadriplegia; Q67.5 Congenital deformity of spine; F72 Severe intellectual disabilities; E86.0 Dehydration; E87.0 Hyperosmolality and hypernatremia; E83.42 Hypomagnesemia
CPT/HCPCS: 36415; 71045-TC-FY; 74177-TC; 80048; 80053; 81003; 83605; 83690; 83735; 84100; 84436; 84443; 85025; 85027; 85610; 85730; 86769; 86850; 86900; 86901; 87040; 87086; 87186; 87804; 93005; 93010; 93971; 99285-25; C9803; J0131; J0475; Q9967; U0003; U0005

== ENCOUNTER 2021-07-16 18:28 | Emergency (ER) | payer OTHER ==
[2021-07-16 19:04] VITALS: TEMP 96.3; BMI 20.5
[2021-07-16] MEDS ORDERED: LACTATED RINGERS SOLUTION 1000 ML INFUS.BAG IV ONE (20:09)
[2021-07-16] MEDS ORDERED: ONDANSETRON 4 MG/2 ML VIAL IVPUSH ONE (20:09)
[2021-07-16] MEDS ORDERED: FAMOTIDINE 20 MG/50 ML IVPB 20 MG/50 ML MG IVPB ONE ×2 (20:09→20:46)
[2021-07-16] MEDS ORDERED: ONDANSETRON 4 MG/2 ML VIAL ONE (20:45)
[2021-07-16 21:26] LABS: BASO % 0.2 % (0-2.0); EOS % 1.5 % (0-4.5); HEMATOCRIT 45.1 % (32.4-45.2); HEMOGLOBIN 15.7 GM/dL (10.7-15.3); MCH 30.3 pg (25.7-33.7); MCHC 34.8 g/dl (32.0-36.0); MEAN PLT VOLUME 8.5 fl (7.5-11.1); MONO % 6.3 % (3.8-10.2); PLATELET COUNT 223 10^3/uL (134-434); RBC 5.18 M/mm3 (3.60-5.2); RDW 14.1 % (11.6-15.6); WHITE BLOOD COUNT 8.5 K/mm3 (4.0-10.0)
[2021-07-16 21:33] LABS: PROTHROMBIN TIME (PATIENT) 11.7 SEC (9.7-13.0)
[2021-07-16 21:35] LABS: ACTIVATED PTT 50.4 SECONDS (25.2-36.5)
[2021-07-16 21:45] LABS: CHLORIDE 92 mmol/L (98-107); SODIUM 134 mmol/L (136-145)
[2021-07-16 21:47] LABS: CALCIUM 10.2 mg/dL (8.5-10.1)
[2021-07-16 21:48] LABS: ALBUMIN 3.6 g/dl (3.4-5.0); ANION GAP 10 MMOL/L (8-16); BLOOD UREA NITROGEN 8.4 mg/dL (7-18); CO2 32 mmol/L (21-32); GLUCOSE,RANDOM 80 mg/dL (74-106); LIPASE 86 U/L (73-393)
[2021-07-16 21:50] LABS: SGPT/ALT 65 U/L (13-61)
[2021-07-16 21:51] LABS: CREATININE 0.4 mg/dL (0.55-1.3); SGOT/AST 40 U/L (15-37)
[2021-07-16 21:52] LABS: BILIRUBIN,TOTAL 0.4 mg/dL (0.2-1); TOT PROT 8.1 g/dl (6.4-8.2)
[2021-07-16 21:53] LABS: ALK PHOS 187 U/L (45-117)
[2021-07-16 21:56] LABS: EPI CELLS 27 /uL (0-25.1); HYALINE CASTS 1 /uL (0-3.1); URINE APPEARANCE CLEAR; URINE BACTERIA 299 /uL (0-1359); URINE BILIRUBIN NEGATIVE (NEGATIVE); URINE COLOR YELLOW; URINE GLUCOSE (UA) NEGATIVE (NEGATIVE); URINE KETONE NEGATIVE (NEGATIVE); URINE LEUK ESTERASE 1+ (NEGATIVE); URINE NITRITE NEGATIVE (NEGATIVE); URINE PROTEIN NEGATIVE (NEGATIVE); URINE RBC 20 /uL (0-23.9); URINE UROBILINOGEN 0.2 mg/dL (0.2-1.0); URINE WBC 23 /uL (0-25.8)
[2021-07-17 00:45] VITALS: PULSE 102
[2021-07-17] MEDS ORDERED: MAG HYDROX/AL HYDROX/SIMETH 30 ML UNIT-DOSE CUP PEG ONE (02:13)
[2021-07-17] MEDS ORDERED: LACTULOSE 20 GM/30 ML UDC (FOR ORAL USE ONLY) PEG ONE (02:13)
[2021-07-17] MEDS ORDERED: LACTULOSE 20 GM/30 ML UDC (FOR ORAL USE ONLY) ONE (02:16)
[2021-07-17] MEDS ORDERED: MAG HYDROX/AL HYDROX/SIMETH 30 ML UNIT-DOSE CUP ONE (02:16)
[2021-07-17] MEDS ORDERED: POLYETHYLENE GLYCOL (HEALTHYLAX) 3350 17 GM PACKET ONE (02:19)
[2021-07-17] MEDS ORDERED: CEFTRIAXONE 1 GM in DEXTROSE 5%-WATER - 50 ML IVPB ONE (02:29)
[2021-07-17] MEDS: POLYETHYLENE GLYCOL 3350 119 GM BTL PO ONE ×2 (02:41→02:42)
[2021-07-17] MEDS ORDERED: morphine CARPU-JECT 2 MG/1 ML DISP.SYRIN IVPUSH ONE (03:02)
[2021-07-17] MEDS ORDERED: morphine SULFATE 4 MG/ML VIAL ONE (03:06)
[2021-07-17] MEDS ORDERED: CEFTRIAXONE 1 GM/50 ML BAG ONE (03:06)
[2021-07-17 03:22] VITALS: BP 108/87
== END 2021-07-17 05:08 | disposition home or self-care (01) ==
LOC: JER 18:28
PROC: 3E033NZ Introduction of Analgesics, Hypnotics, Sedatives into Peripheral Vein, Percutaneous Approach (ICD-10-PCS; principal; 2021-07-16)
PROC: 3E033GC Introduction of Other Therapeutic Substance into Peripheral Vein, Percutaneous Approach (ICD-10-PCS; 2021-07-16)
DX: K52.9 Noninfective gastroenteritis and colitis, unspecified (principal); K59.04 Chronic idiopathic constipation
CPT/HCPCS: 36415; 71045-TC-FY; 74177-TC; 80053; 81003; 82550; 83690; 84484; 85025; 85610; 85730; 86850; 86900; 86901; 87086; 87186; 93005; 93010; 99285-25; C9803; Q9967; U0003; U0005

== ENCOUNTER 2021-07-20 05:21 | Observation (INO) | payer OTHER ==
[2021-07-20 05:52] VITALS: BMI 31.2
[2021-07-20] MEDS ORDERED: ONDANSETRON 4 MG/2 ML VIAL IVPUSH ONE (06:27)
[2021-07-20] MEDS ORDERED: FAMOTIDINE 20 MG/50 ML IVPB 20 MG/50 ML MG IVPB ONE (06:27)
[2021-07-20] MEDS ORDERED: PANTOPRAZOLE SODIUM 40 MG VIAL IVPUSH ONE (06:28)
[2021-07-20] MEDS ORDERED: PANTOPRAZOLE SODIUM 40 MG VIAL ONE ×2 (06:29→12:21)
[2021-07-20] MEDS ORDERED: ONDANSETRON 4 MG/2 ML VIAL ONE (06:29)
[2021-07-20 06:50] LABS: INR 1.01 (0.83-1.09); PROTHROMBIN TIME (PATIENT) 11.3 SEC (9.7-13.0)
[2021-07-20 06:53] LABS: ACTIVATED PTT 43.1 SECONDS (25.2-36.5)
[2021-07-20 06:56] LABS: HEMOGLOBIN 15.9 GM/dL (10.7-15.3); MCH 30.5 pg (25.7-33.7); MCHC 34.5 g/dl (32.0-36.0); MEAN CELL VOLUME 88.5 fl (80-96); MEAN PLT VOLUME 8.9 fl (7.5-11.1); PLATELET COUNT 201 10^3/uL (134-434); RDW 14.3 % (11.6-15.6); WHITE BLOOD COUNT 7.8 K/mm3 (4.0-10.0)
[2021-07-20 07:09] LABS: CHLORIDE 98 mmol/L (98-107); SODIUM 135 mmol/L (136-145)
[2021-07-20 07:11] LABS: CALCIUM 9.2 mg/dL (8.5-10.1)
[2021-07-20 07:12] LABS: ALBUMIN 3.5 g/dl (3.4-5.0); ANION GAP 10 MMOL/L (8-16); BLOOD UREA NITROGEN 10.3 mg/dL (7-18); CO2 27 mmol/L (21-32); GLUCOSE,RANDOM 61 mg/dL (74-106)
[2021-07-20 07:15] LABS: CREATININE 0.3 mg/dL (0.55-1.3); SGOT/AST 39 U/L (15-37); SGPT/ALT 47 U/L (13-61)
[2021-07-20 07:16] LABS: BILIRUBIN,TOTAL 0.6 mg/dL (0.2-1)
[2021-07-20 07:17] LABS: TOT PROT 7.6 g/dl (6.4-8.2)
[2021-07-20 07:18] LABS: ALK PHOS 164 U/L (45-117)
[2021-07-20] MEDS ORDERED: DEXTROSE 50%-WATER - 25 GM/50 ML VIAL IVPUSH ONE (07:40)
[2021-07-20] MEDS ORDERED: DEXTROSE 50%-WATER 25 GM/50 ML DISP.SYRIN ONE (07:51)
[2021-07-20] MEDS ORDERED: SODIUM CHLORIDE 0.9% 500 ML INFUS.BAG IV ONE (07:59)
[2021-07-20 09:17] LABS: ANISOCYTOSIS 0; MACROCYTOSIS 0; PLATELET ESTIMATE NORMAL
[2021-07-20] MEDS ORDERED: ALBUTEROL SO4 0.083% IH SOL 2.5 MG/3 ML VIAL.NEB. NEB PRN (12:02)
[2021-07-20] MEDS ORDERED: PANTOPRAZOLE SODIUM 80 MG in SODIUM CHLORIDE 100 ML IVPB SCH (12:06)
[2021-07-20] MEDS ORDERED: PATIENT'S OWN MEDICATION (NON-FORMULARY) (Lactose-Reduced Food/Fiber [Jevity 1 Cal Liquid] GT SCH (12:15)
[2021-07-20] MEDS ORDERED: diazePAM RECTAL GEL 7.5 MG KIT (PRE-CALIBRATED) RC PRN (12:15)
[2021-07-20] MEDS: D5-1/2NS+20 MEQ KCL - 20 MEQ/1,000 ML INFUS.BAG IV SCH (12:50)
[2021-07-20] MEDS: BACLOFEN 10 MG TABLET (FP) GT SCH ×2 (14:10→22:21)
[2021-07-20] MEDS ORDERED: PEG 3350/NA SULF BICARB CL/KCL 4000 ML SOLN.RECON PEG ONE (15:00)
[2021-07-20] MEDS ORDERED: CHLORHEXIDINE GLUCONATE 0.12% 15ML CUP PO SCH ×2 (21:00)
[2021-07-20] MEDS ORDERED: SENNOSIDES 8.6MG TABLET (FP) PO ONE (21:04)
[2021-07-20] MEDS ORDERED: BACLOFEN 10 MG TABLET (FP) ONE (21:04)
[2021-07-20] MEDS ORDERED: diazePAM 5 MG TABLET ONE (21:04)
[2021-07-20] MEDS: CALCIUM CARBONATE SUSPENSION - 1250 MG/5 ML ML GT SCH (22:20)
[2021-07-20] MEDS: SENNOSIDES 8.8 MG/5 ML BULK BOTTLE PEG SCH (22:21)
[2021-07-20] MEDS: diazePAM 5 MG TABLET GT SCH (22:21)
[2021-07-20] MEDS: PANTOPRAZOLE SODIUM 40 MG VIAL IVPUSH SCH (22:21)
[2021-07-20] MEDS: levETIRAcetam 500 MG/5 ML ORAL SOLUTION (UNIT-DOSE CUPS) GT SCH (22:21)
[2021-07-21] MEDS: CHOLECALCIFEROL (VIT D SOLUTION) 400 UNIT/1 ML DROPS GT SCH ×2 (00:50→19:28)
[2021-07-21] MEDS ORDERED: BACLOFEN 10 MG TABLET (FP) ONE (06:07)
[2021-07-21] MEDS: BACLOFEN 10 MG TABLET (FP) GT SCH ×2 (06:24→19:28)
[2021-07-21 06:56] LABS: BASO % 0.3 % (0-2.0); EOS % 1.4 % (0-4.5); HEMATOCRIT 35.9 % (32.4-45.2); HEMOGLOBIN 12.5 GM/dL (10.7-15.3); LYMPH % 22.7 % (8-40); MCH 30.7 pg (25.7-33.7); MCHC 34.9 g/dl (32.0-36.0); MEAN CELL VOLUME 87.9 fl (80-96); MEAN PLT VOLUME 8.4 fl (7.5-11.1); MONO % 7.3 % (3.8-10.2); NEUT % 68.3 % (42.8-82.8); PLATELET COUNT 191 10^3/uL (134-434); RBC 4.08 M/mm3 (3.60-5.2); RDW 13.9 % (11.6-15.6); WHITE BLOOD COUNT 5.2 K/mm3 (4.0-10.0)
[2021-07-21 07:21] LABS: ALBUMIN 2.9 g/dl (3.4-5.0); BLOOD UREA NITROGEN 3.6 mg/dL (7-18); CALCIUM 8.5 mg/dL (8.5-10.1)
[2021-07-21 07:24] LABS: CREATININE 0.3 mg/dL (0.55-1.3)
[2021-07-21 07:26] LABS: BILIRUBIN,TOTAL 0.4 mg/dL (0.2-1); TOT PROT 6.1 g/dl (6.4-8.2)
[2021-07-21] MEDS ORDERED: PSYLLIUM HUSK 0.4 GM PO SCH (10:00)
[2021-07-21] MEDS: POLYETHYLENE GLYCOL (HEALTHYLAX) 3350 17 GM PACKET GT SCH (19:27)
[2021-07-21] MEDS: diazePAM 5 MG TABLET GT SCH (19:27)
[2021-07-21] MEDS: CALCIUM CARBONATE SUSPENSION - 1250 MG/5 ML ML GT SCH (19:27)
[2021-07-21] MEDS: levETIRAcetam 500 MG/5 ML ORAL SOLUTION (UNIT-DOSE CUPS) GT SCH (19:27)
[2021-07-21] MEDS: ZINC OXIDE 20% TOPICAL OINTMENT 30 GM TUBE TP SCH (19:28)
[2021-07-22] MEDS: D5-1/2NS+20 MEQ KCL - 20 MEQ/1,000 ML INFUS.BAG IV SCH (00:41)
[2021-07-22] MEDS: levETIRAcetam 500 MG/5 ML ORAL SOLUTION (UNIT-DOSE CUPS) GT SCH (01:04)
[2021-07-22] MEDS: levETIRAcetam 500 MG/5 ML INJECTION VIAL IVPB SCH ×2 (01:16→09:31)
[2021-07-22] MEDS: POLYETHYLENE GLYCOL (HEALTHYLAX) 3350 17 GM PACKET GT SCH ×2 (05:00→09:30)
[2021-07-22] MEDS: CALCIUM CARBONATE SUSPENSION - 1250 MG/5 ML ML GT SCH ×2 (05:00→10:00)
[2021-07-22] MEDS: diazePAM 5 MG TABLET GT SCH ×2 (05:01→10:36)
[2021-07-22] MEDS: BACLOFEN 10 MG TABLET (FP) GT SCH ×2 (05:01→05:37)
[2021-07-22] MEDS: CHOLECALCIFEROL (VIT D SOLUTION) 400 UNIT/1 ML DROPS GT SCH ×2 (05:01→10:00)
[2021-07-22] MEDS: SENNOSIDES 8.8 MG/5 ML BULK BOTTLE PEG SCH (05:01)
[2021-07-22] MEDS: PANTOPRAZOLE SODIUM 40 MG VIAL IVPUSH SCH (05:02)
[2021-07-22 09:30] VITALS: BP 116/58; PULSE 105; TEMP 97.8
[2021-07-22] MEDS: ZINC OXIDE 20% TOPICAL OINTMENT 30 GM TUBE TP SCH (10:00)
== END 2021-07-22 12:29 ==
LOC: JER 05:21 → INTOOBSV 10:07 → JERBED 10:07 → UNDOADMOB 10:07 → JERBED 07-21 09:23 → J4S 07-21 23:45
PROVIDERS: ADMIT Internal Medicine; ATTEND Nurse Practitioner Acute Care
PROC: 3E033GC Introduction of Other Therapeutic Substance into Peripheral Vein, Percutaneous Approach (ICD-10-PCS; principal; 2021-07-21)
DX: K30 Functional dyspepsia (principal); K56.41 Fecal impaction; K21.9 Gastro-esophageal reflux disease without esophagitis; R53.2 Functional quadriplegia; R56.9 Unspecified convulsions; K92.0 Hematemesis; G80.9 Cerebral palsy, unspecified; F79 Unspecified intellectual disabilities; Q43.8 Other specified congenital malformations of intestine; M41.9 Scoliosis, unspecified; Z86.010 Personal history of colon polyps; E66.8 Other obesity; Z68.31 Body mass index [BMI] 31.0-31.9, adult; Z43.1 Encounter for attention to gastrostomy; Z29.9 Encounter for prophylactic measures, unspecified
CPT/HCPCS: 36415; 71045-TC-FY; 80053; 82272; 82550; 82728; 82962; 83540; 83550; 84443; 84484; 85025; 85045; 85610; 85730; 86850; 86900; 86901; 93005; 93010; 96365; 96375; 99285-25; C9803; G0378; J0475; U0003; U0005

== ENCOUNTER 2021-12-28 21:52 | Inpatient (IN) | payer OTHER ==
[2021-12-28 22:27] VITALS: BMI 21.2
[2021-12-28 23:14] LABS: BASO % 0.4 % (0-2.0); EOS % 3.8 % (0-4.5); HEMOGLOBIN 14.5 GM/dL (10.7-15.3); LYMPH % 26.2 % (8-40); MCH 30.5 pg (25.7-33.7); MCHC 33.8 g/dl (32.0-36.0); MEAN CELL VOLUME 90.1 fl (80-96); MEAN PLT VOLUME 9.5 fl (7.5-11.1); MONO % 9.5 % (3.8-10.2); NEUT % 60.1 % (42.8-82.8); PLATELET COUNT 166 10^3/uL (134-434); RBC 4.77 M/mm3 (3.60-5.2); RDW 14.2 % (11.6-15.6); WHITE BLOOD COUNT 3.4 K/mm3 (4.0-10.0)
[2021-12-28 23:17] LABS: VENOUS BASE EXCESS 6.5 mmol/L (-2-2); VENOUS O2 SATURATION 71.4 % (70-80); VENOUS PCO2 67.9 mmHg (38-52); VENOUS PH 7.332 (7.310-7.410)
[2021-12-28 23:21] LABS: INR 0.95 (0.83-1.09); PROTHROMBIN TIME (PATIENT) 10.9 SEC (9.7-13.0)
[2021-12-28 23:24] LABS: ACTIVATED PTT 56.6 SECONDS (25.2-36.5)
[2021-12-28 23:34] LABS: BLOOD UREA NITROGEN 16.5 mg/dL (7-18); CALCIUM 9.9 mg/dL (8.5-10.1)
[2021-12-28 23:35] LABS: ALBUMIN 3.5 g/dl (3.4-5.0)
[2021-12-28 23:38] LABS: CREATININE 0.5 mg/dL (0.55-1.3)
[2021-12-28 23:39] LABS: BILIRUBIN,TOTAL 0.3 mg/dL (0.2-1); TOT PROT 8.1 g/dl (6.4-8.2)
[2021-12-29] MEDS ORDERED: SODIUM CHLORIDE IV ONE (00:15)
[2021-12-29] MEDS ORDERED: VANCOMYCIN 1 GM in D5W (PRE-DOCKED) 1,000 MG/250 ML IVPB ONE (02:48)
[2021-12-29] MEDS ORDERED: PIPERACILLIN/TAZOB 3.375 GM 3.375 GM in DEXTROSE 5%-WATER - 50 ML IVPB ONE (02:49)
[2021-12-29] MEDS ORDERED: VANCOMYCIN 1 GRAM (PRE-DOCKED) 1,000 MG/250 ML BAG IVPB ONE (02:55)
[2021-12-29] MEDS ORDERED: PIPERACILLIN/TAZOB 3.375 GM 3.375 GM/50 ML BAG IVPB ONE ×2 (02:55→10:49)
[2021-12-29] MEDS ORDERED: SODIUM CHLORIDE 0.9% 500 ML INFUS.BAG IV ONE (03:40)
[2021-12-29] MEDS ORDERED: DEXTROSE 50%-WATER 25 GM/50 ML DISP.SYRIN ONE ×2 (05:16→07:41)
[2021-12-29] MEDS ORDERED: DEXTROSE 50%-WATER - 25 GM/50 ML VIAL IVPUSH ONE ×2 (05:17→07:40)
[2021-12-29] MEDS ORDERED: ALBUTEROL SO4 0.083% IH SOL 2.5 MG/3 ML VIAL.NEB. NEB PRN (05:23)
[2021-12-29] MEDS ORDERED: GLYCERIN 1 RECTAL SUPPOSITORY, ADULT PR ONE (05:29)
[2021-12-29] MEDS ORDERED: diazePAM RECTAL GEL 10 MG KIT (PRE-CALIBRATED) RC SCH (05:30)
[2021-12-29] MEDS ORDERED: BACLOFEN 10 MG TABLET (FP) ONE ×2 (06:34→13:36)
[2021-12-29] MEDS: BACLOFEN 10 MG TABLET (FP) GT SCH ×3 (06:43→22:09)
[2021-12-29 07:04] LABS: EPI CELLS 4 /uL (0-25.1); HYALINE CASTS 4 /uL (0-3.1); URINE APPEARANCE CLOUDY; URINE BACTERIA 196 /uL (0-1359); URINE BILIRUBIN NEGATIVE (NEGATIVE); URINE COLOR ORANGE; URINE GLUCOSE (UA) NEGATIVE (NEGATIVE); URINE KETONE NEGATIVE (NEGATIVE); URINE LEUK ESTERASE 3+ (NEGATIVE); URINE NITRITE NEGATIVE (NEGATIVE); URINE PROTEIN 3+ (NEGATIVE); URINE RBC 7026 /uL (0-23.9); URINE UROBILINOGEN 0.2 mg/dL (0.2-1.0); URINE WBC 1596 /uL (0-25.8)
[2021-12-29] MEDS ORDERED: ZINC OXIDE 20% TOPICAL OINTMENT 30 GM TUBE TP SCH (10:00)
[2021-12-29] MEDS ORDERED: diazePAM 5 MG TABLET ONE (10:44)
[2021-12-29] MEDS ORDERED: POLYETHYLENE GLYCOL (HEALTHYLAX) 3350 17 GM PACKET ONE (10:44)
[2021-12-29] MEDS ORDERED: ENOXAPARIN NA (PORCINE) 40 MG/0.4 ML DISP.SYRIN SQ ONE (10:45)
[2021-12-29] MEDS ORDERED: levETIRAcetam 500 MG TABLET (FP) PO ONE (10:45)
[2021-12-29] MEDS ORDERED: LORATADINE 10 MG TABLET ONE (10:45)
[2021-12-29] MEDS: CALCIUM 500MG/VIT-D 200 UNITS COMBO TABLET (FP) GT SCH ×2 (11:04→22:09)
[2021-12-29] MEDS: POLYETHYLENE GLYCOL (HEALTHYLAX) 3350 17 GM PACKET PO SCH ×2 (11:04→22:08)
[2021-12-29] MEDS: LORATADINE 10 MG TABLET GT SCH (11:04)
[2021-12-29] MEDS: ENOXAPARIN NA (PORCINE) 40 MG/0.4 ML DISP.SYRIN SQ SCH (11:04)
[2021-12-29] MEDS: levETIRAcetam 500 MG TABLET (FP) PO SCH ×2 (11:05→22:09)
[2021-12-29] MEDS: CHOLECALCIFEROL (VIT D SOLUTION) 400 UNIT/1 ML DROPS GT SCH ×2 (11:05→22:57)
[2021-12-29] MEDS: PIPERACILLIN/TAZOB 3.375 GM 3.375 GM in DEXTROSE 5%-WATER - 50 ML IVPB SCH ×2 (11:05→17:47)
[2021-12-29] MEDS: diazePAM 5 MG TABLET GT SCH ×2 (11:05→22:09)
[2021-12-29 12:16] LABS: BASO % 0.1 % (0-2.0); EOS % 0.6 % (0-4.5); HEMATOCRIT 39.6 % (32.4-45.2); HEMOGLOBIN 13.5 GM/dL (10.7-15.3); LYMPH % 6.2 % (8-40); MCH 30.7 pg (25.7-33.7); MEAN CELL VOLUME 90.2 fl (80-96); MEAN PLT VOLUME 8.9 fl (7.5-11.1); MONO % 6.3 % (3.8-10.2); NEUT % 86.8 % (42.8-82.8); PLATELET COUNT 147 10^3/uL (134-434); RBC 4.38 M/mm3 (3.60-5.2); WHITE BLOOD COUNT 5.7 K/mm3 (4.0-10.0)
[2021-12-29 12:33] LABS: BLOOD UREA NITROGEN 9.8 mg/dL (7-18); MAGNESIUM 1.9 mg/dL (1.8-2.4)
[2021-12-29 12:36] LABS: CREATININE 0.6 mg/dL (0.55-1.3); PHOSPHOROUS 2.2 mg/dL (2.5-4.9)
[2021-12-29 12:38] LABS: BILIRUBIN,TOTAL 0.3 mg/dL (0.2-1); TOT PROT 6.5 g/dl (6.4-8.2)
[2021-12-29 12:40] LABS: ALBUMIN 2.8 g/dl (3.4-5.0); CALCIUM 8.4 mg/dL (8.5-10.1)
[2021-12-29] MEDS ORDERED: DEXTROSE 5%-WATER - 50 ML IVPB ONE (17:22)
[2021-12-29] MEDS ORDERED: PIPERACILLIN/TAZOBACTAM 3.375 GM VIAL IVPB ONE (17:22)
[2021-12-29] MEDS: SENNOSIDES 8.8 MG/5 ML BULK BOTTLE PEG SCH (22:56)
[2021-12-30] MEDS ORDERED: DEXTROSE 5%-WATER - 50 ML IVPB ONE ×3 (02:29→16:48)
[2021-12-30] MEDS ORDERED: PIPERACILLIN/TAZOBACTAM 3.375 GM VIAL IVPB ONE ×2 (02:29→09:48)
[2021-12-30] MEDS: PIPERACILLIN/TAZOB 3.375 GM 3.375 GM in DEXTROSE 5%-WATER - 50 ML IVPB SCH (03:00)
[2021-12-30] MEDS ORDERED: VANCOMYCIN 1 GM/200 ML PREMIX BAG IVPB SCH (04:00)
[2021-12-30] MEDS: BACLOFEN 10 MG TABLET (FP) GT SCH ×3 (06:17→23:29)
[2021-12-30 09:01] LABS: BASO % 0.3 % (0-2.0); EOS % 2.8 % (0-4.5); HEMATOCRIT 38.6 % (32.4-45.2); HEMOGLOBIN 12.9 GM/dL (10.7-15.3); LYMPH % 14.9 % (8-40); MCH 30.2 pg (25.7-33.7); MCHC 33.5 g/dl (32.0-36.0); MEAN CELL VOLUME 90.1 fl (80-96); MEAN PLT VOLUME 9.1 fl (7.5-11.1); MONO % 5.2 % (3.8-10.2); NEUT % 76.8 % (42.8-82.8); PLATELET COUNT 161 10^3/uL (134-434); RBC 4.28 M/mm3 (3.60-5.2); RDW 14.3 % (11.6-15.6); WHITE BLOOD COUNT 3.4 K/mm3 (4.0-10.0)
[2021-12-30 09:13] LABS: CALCIUM 8.8 mg/dL (8.5-10.1)
[2021-12-30 09:14] LABS: BLOOD UREA NITROGEN 8.7 mg/dL (7-18)
[2021-12-30 09:15] LABS: MAGNESIUM 2.1 mg/dL (1.8-2.4)
[2021-12-30 09:17] LABS: CREATININE 0.5 mg/dL (0.55-1.3)
[2021-12-30] MEDS: levETIRAcetam 500 MG TABLET (FP) PO SCH ×2 (09:55→23:29)
[2021-12-30] MEDS: CALCIUM 500MG/VIT-D 200 UNITS COMBO TABLET (FP) GT SCH ×2 (09:55→23:29)
[2021-12-30] MEDS: POLYETHYLENE GLYCOL (HEALTHYLAX) 3350 17 GM PACKET PO SCH ×2 (09:56→23:28)
[2021-12-30] MEDS: ENOXAPARIN NA (PORCINE) 40 MG/0.4 ML DISP.SYRIN SQ SCH (09:56)
[2021-12-30] MEDS: diazePAM 5 MG TABLET GT SCH ×2 (09:56→23:29)
[2021-12-30] MEDS: LORATADINE 10 MG TABLET GT SCH (09:56)
[2021-12-30] MEDS ORDERED: PIPERACILLIN/TAZOB 3.375 GM 3.375 GM in DEXTROSE 5%-WATER - 50 ML IVPB SCH (10:00)
[2021-12-30] MEDS: CHOLECALCIFEROL (VIT D SOLUTION) 400 UNIT/1 ML DROPS GT SCH ×2 (11:26→23:32)
[2021-12-30] MEDS: ZINC OXIDE 20% TOPICAL OINTMENT 30 GM TUBE TP SCH (13:32)
[2021-12-30] MEDS ORDERED: cefTRIAXone SODIUM 1 GM VIAL ONE (16:48)
[2021-12-30] MEDS: CEFTRIAXONE 1 GM in DEXTROSE 5%-WATER - 50 ML IVPB SCH (17:39)
[2021-12-30] MEDS: SENNOSIDES 8.8 MG/5 ML BULK BOTTLE PEG SCH (23:30)
[2021-12-31] MEDS ORDERED: VANCOMYCIN 1 GM/200 ML PREMIX BAG IVPB SCH (04:00)
[2021-12-31] MEDS: BACLOFEN 10 MG TABLET (FP) GT SCH ×3 (07:06→22:20)
[2021-12-31] MEDS ORDERED: DEXTROSE 5%-WATER - 50 ML IVPB ONE (10:15)
[2021-12-31] MEDS ORDERED: cefTRIAXone SODIUM 1 GM VIAL ONE (10:15)
[2021-12-31] MEDS: MULTIVIT-MINERALS ORAL LIQUID PEG SCH (10:35)
[2021-12-31] MEDS: POLYETHYLENE GLYCOL (HEALTHYLAX) 3350 17 GM PACKET PO SCH ×2 (10:35→22:19)
[2021-12-31] MEDS: ENOXAPARIN NA (PORCINE) 40 MG/0.4 ML DISP.SYRIN SQ SCH (10:35)
[2021-12-31] MEDS: LORATADINE 10 MG TABLET GT SCH (10:36)
[2021-12-31] MEDS: diazePAM 5 MG TABLET GT SCH ×2 (10:36→22:20)
[2021-12-31] MEDS: levETIRAcetam 500 MG TABLET (FP) PO SCH ×2 (10:36→22:19)
[2021-12-31] MEDS: CALCIUM 500MG/VIT-D 200 UNITS COMBO TABLET (FP) GT SCH ×2 (10:36→22:20)
[2021-12-31] MEDS: CHOLECALCIFEROL (VIT D SOLUTION) 400 UNIT/1 ML DROPS GT SCH ×2 (10:36→22:19)
[2021-12-31] MEDS: ZINC OXIDE 20% TOPICAL OINTMENT 30 GM TUBE TP SCH (10:37)
[2021-12-31] MEDS: CEFTRIAXONE 1 GM in DEXTROSE 5%-WATER - 50 ML IVPB SCH (10:37)
[2021-12-31 11:03] LABS: BASO % 0.3 % (0-2.0); HEMATOCRIT 37.3 % (32.4-45.2); HEMOGLOBIN 12.8 GM/dL (10.7-15.3); MCH 30.6 pg (25.7-33.7); MCHC 34.2 g/dl (32.0-36.0); MEAN CELL VOLUME 89.6 fl (80-96); MEAN PLT VOLUME 9.1 fl (7.5-11.1); MONO % 10.2 % (3.8-10.2); NEUT % 74.5 % (42.8-82.8); PLATELET COUNT 146 10^3/uL (134-434); RBC 4.17 M/mm3 (3.60-5.2); RDW 14.1 % (11.6-15.6); WHITE BLOOD COUNT 5.5 K/mm3 (4.0-10.0)
[2021-12-31 11:25] LABS: CALCIUM 8.5 mg/dL (8.5-10.1); MAGNESIUM 2.1 mg/dL (1.8-2.4)
[2021-12-31 11:26] LABS: BLOOD UREA NITROGEN 10.6 mg/dL (7-18)
[2021-12-31 11:29] LABS: CREATININE 0.5 mg/dL (0.55-1.3)
[2021-12-31] MEDS: SENNOSIDES 8.8 MG/5 ML BULK BOTTLE PEG SCH (22:19)
[2022-01-01] MEDS: BACLOFEN 10 MG TABLET (FP) GT SCH ×2 (05:36→13:32)
[2022-01-01 08:17] LABS: BASO % 0.4 % (0-2.0); EOS % 4.5 % (0-4.5); HEMATOCRIT 36.9 % (32.4-45.2); HEMOGLOBIN 12.6 GM/dL (10.7-15.3); LYMPH % 24.6 % (8-40); MCH 30.6 pg (25.7-33.7); MEAN PLT VOLUME 8.7 fl (7.5-11.1); MONO % 10.8 % (3.8-10.2); NEUT % 59.7 % (42.8-82.8); PLATELET COUNT 150 10^3/uL (134-434); RDW 14.4 % (11.6-15.6); WHITE BLOOD COUNT 5.1 K/mm3 (4.0-10.0)
[2022-01-01 08:31] LABS: CALCIUM 8.9 mg/dL (8.5-10.1)
[2022-01-01 08:32] LABS: BLOOD UREA NITROGEN 10.1 mg/dL (7-18); MAGNESIUM 2.1 mg/dL (1.8-2.4)
[2022-01-01 08:35] LABS: CREATININE 0.5 mg/dL (0.55-1.3)
[2022-01-01 08:36] LABS: PHOSPHOROUS 3.8 mg/dL (2.5-4.9)
[2022-01-01] MEDS ORDERED: cefTRIAXone SODIUM 1 GM VIAL ONE (09:46)
[2022-01-01] MEDS ORDERED: DEXTROSE 5%-WATER - 50 ML IVPB ONE (09:46)
[2022-01-01] MEDS: POLYETHYLENE GLYCOL (HEALTHYLAX) 3350 17 GM PACKET PO SCH (10:35)
[2022-01-01] MEDS: CEFTRIAXONE 1 GM in DEXTROSE 5%-WATER - 50 ML IVPB SCH (10:35)
[2022-01-01] MEDS: MULTIVIT-MINERALS ORAL LIQUID PEG SCH (10:35)
[2022-01-01] MEDS: LORATADINE 10 MG TABLET GT SCH (10:36)
[2022-01-01] MEDS: ENOXAPARIN NA (PORCINE) 40 MG/0.4 ML DISP.SYRIN SQ SCH (10:36)
[2022-01-01] MEDS: CHOLECALCIFEROL (VIT D SOLUTION) 400 UNIT/1 ML DROPS GT SCH (10:36)
[2022-01-01] MEDS: levETIRAcetam 500 MG TABLET (FP) PO SCH (10:37)
[2022-01-01] MEDS: diazePAM 5 MG TABLET GT SCH (10:37)
[2022-01-01] MEDS: CALCIUM 500MG/VIT-D 200 UNITS COMBO TABLET (FP) GT SCH (10:37)
[2022-01-01] MEDS: ZINC OXIDE 20% TOPICAL OINTMENT 30 GM TUBE TP SCH (10:37)
[2022-01-01 14:22] VITALS: BP 101/62; PULSE 84; TEMP 97.8
== END 2022-01-01 14:19 | disposition home or self-care (01) | DRG 720 ==
LOC: JER 21:52 → JERBED 12-29 00:45 → J7W 12-29 15:50
PROVIDERS: ADMIT Hospitalist; ATTEND Internal Medicine
PROC: 3E0G76Z Introduction of Nutritional Substance into Upper GI, Via Natural or Artificial Opening (ICD-10-PCS; principal; 2021-12-29)
DX: A41.9 Sepsis, unspecified organism (principal); R53.2 Functional quadriplegia; G93.1 Anoxic brain damage, not elsewhere classified; F73 Profound intellectual disabilities; M41.9 Scoliosis, unspecified; R68.0 Hypothermia, not associated with low environmental temperature; K21.9 Gastro-esophageal reflux disease without esophagitis; K59.00 Constipation, unspecified; G40.909 Epilepsy, unspecified, not intractable, without status epilepticus; E27.40 Unspecified adrenocortical insufficiency; G93.49 Other encephalopathy; D72.829 Elevated white blood cell count, unspecified; N39.0 Urinary tract infection, site not specified; E16.2 Hypoglycemia, unspecified; Z74.01 Bed confinement status
CPT/HCPCS: 36415; 70450-TC; 71045-TC-FY; 74177-TC; 80048; 80053; 81003; 82533; 82553; 82803; 82962; 83605; 83735; 83880; 84100; 84143; 84439; 84443; 84484; 85025; 85610; 85730; 86850; 86900; 86901; 87040; 87086; 93005; 93010; 99285-25; C9803-CS; J0475; U0003; U0005

== ENCOUNTER 2022-03-05 10:07 | Inpatient (IN) | payer OTHER ==
[2022-03-05] MEDS ORDERED: LACTATED RINGERS SOLUTION 1000 ML INFUS.BAG IV ONE (10:50)
[2022-03-05 12:19] LABS: INR 1.06 (0.83-1.09); PROTHROMBIN TIME (PATIENT) 12.2 SEC (9.7-13.0)
[2022-03-05 12:22] LABS: ACTIVATED PTT 51.6 SECONDS (25.2-36.5)
[2022-03-05 12:26] LABS: ALBUMIN 3.3 g/dl (3.4-5.0); CALCIUM 10.2 mg/dL (8.5-10.1)
[2022-03-05 12:28] LABS: BLOOD UREA NITROGEN 15.8 mg/dL (7-18)
[2022-03-05 12:30] LABS: CREATININE 0.7 mg/dL (0.55-1.3)
[2022-03-05 12:32] LABS: BILIRUBIN,TOTAL 0.6 mg/dL (0.2-1); TOT PROT 7.8 g/dl (6.4-8.2)
[2022-03-05 12:35] LABS: VENOUS BASE EXCESS 7.2 mmol/L (-2-2); VENOUS O2 SATURATION 87.8 % (70-80); VENOUS PH 7.366 (7.310-7.410)
[2022-03-05] MEDS ORDERED: PIPERACILLIN/TAZOB 4.5 GM 4.5 GM in DEXTROSE 5%-WATER 100 ML IVPB ONE (13:11)
[2022-03-05] MEDS ORDERED: VANCOMYCIN HCL 1,000 MG in DEXTROSE 5%-WATER - 500 ML IVPB ONE (13:11)
[2022-03-05] MEDS ORDERED: PIPERACILLIN/TAZOB 4.5 GM 4.5 GM/100 ML BAG IVPB ONE (13:19)
[2022-03-05] MEDS ORDERED: VANCOMYCIN 1 GRAM (PRE-DOCKED) 1,000 MG/250 ML BAG IVPB ONE (13:19)
[2022-03-05 13:58] LABS: PH,URINE 7.5 (5.0-8.0); URINE APPEARANCE CLOUDY; URINE BILIRUBIN NEGATIVE (NEGATIVE); URINE COLOR YELLOW; URINE GLUCOSE (UA) NEGATIVE (NEGATIVE); URINE KETONE NEGATIVE (NEGATIVE); URINE LEUK ESTERASE NEGATIVE (NEGATIVE); URINE NITRITE NEGATIVE (NEGATIVE); URINE PROTEIN NEGATIVE (NEGATIVE); URINE UROBILINOGEN 0.2 mg/dL (0.2-1.0)
[2022-03-05 14:29] LABS: BASO % 0.2 % (0-2.0); EOS % 0.6 % (0-4.5); HEMATOCRIT 39.4 % (32.4-45.2); HEMOGLOBIN 13.6 GM/dL (10.7-15.3); LYMPH % 15.1 % (8-40); MCH 30.3 pg (25.7-33.7); MCHC 34.4 g/dl (32.0-36.0); MEAN CELL VOLUME 88.3 fl (80-96); MONO % 5.6 % (3.8-10.2); NEUT % 78.5 % (42.8-82.8); PLATELET COUNT 138 10^3/uL (134-434); RBC 4.47 M/mm3 (3.60-5.2); WHITE BLOOD COUNT 7.2 K/mm3 (4.0-10.0)
[2022-03-05 15:28] LABS: ALBUMIN 3.4 g/dl (3.4-5.0)
[2022-03-05 15:29] LABS: BLOOD UREA NITROGEN 16.7 mg/dL (7-18)
[2022-03-05 15:32] LABS: CREATININE 0.7 mg/dL (0.55-1.3)
[2022-03-05 15:33] LABS: BILIRUBIN,TOTAL 0.4 mg/dL (0.2-1); TOT PROT 7.4 g/dl (6.4-8.2)
[2022-03-05] MEDS ORDERED: SODIUM CHLORIDE 1,000 ML IV SCH (18:00)
[2022-03-05] MEDS ORDERED: ALBUTEROL SO4 0.083% IH SOL 2.5 MG/3 ML VIAL.NEB. NEB PRN (18:04)
[2022-03-05] MEDS ORDERED: diazePAM RECTAL GEL 7.5 MG KIT (PRE-CALIBRATED) RC PRN (18:15)
[2022-03-05] MEDS ORDERED: DEXTROSE 50%-WATER 25 GM/50 ML DISP.SYRIN ONE (19:46)
[2022-03-05] MEDS ORDERED: DEXTROSE 50%-WATER - 25 GM/50 ML VIAL IVPUSH ONE (19:47)
[2022-03-05] MEDS ORDERED: DEXTROSE 5%-WATER 1000 ML INFUS.BAG IV ONE (19:47)
[2022-03-05] MEDS ORDERED: diazePAM 5 MG TABLET ONE (22:41)
[2022-03-05] MEDS ORDERED: POLYETHYLENE GLYCOL (HEALTHYLAX) 3350 17 GM PACKET ONE (22:52)
[2022-03-05] MEDS: levETIRAcetam 500 MG/5 ML ORAL SOLUTION (UNIT-DOSE CUPS) PEG SCH (22:54)
[2022-03-05] MEDS: SENNOSIDES 8.8 MG/5 ML BULK BOTTLE PEG SCH (22:54)
[2022-03-05] MEDS: POLYETHYLENE GLYCOL (HEALTHYLAX) 3350 17 GM PACKET PEG SCH (22:54)
[2022-03-05] MEDS: diazePAM 5 MG TABLET PEG SCH (22:55)
[2022-03-05] MEDS ORDERED: PIPERACILLIN/TAZOB 3.375 GM 3.375 GM/50 ML BAG IVPB ONE (23:59)
[2022-03-06 08:08] LABS: CALCIUM 8.9 mg/dL (8.5-10.1)
[2022-03-06 08:09] LABS: ALBUMIN 3.2 g/dl (3.4-5.0); BLOOD UREA NITROGEN 15.4 mg/dL (7-18); MAGNESIUM 1.7 mg/dL (1.8-2.4)
[2022-03-06 08:12] LABS: CREATININE 0.6 mg/dL (0.55-1.3)
[2022-03-06 08:14] LABS: BILIRUBIN,TOTAL 0.8 mg/dL (0.2-1); TOT PROT 7.1 g/dl (6.4-8.2)
[2022-03-06] MEDS ORDERED: POLYETHYLENE GLYCOL (HEALTHYLAX) 3350 17 GM PACKET ONE ×2 (09:21→21:26)
[2022-03-06] MEDS ORDERED: PIPERACILLIN/TAZOB 3.375 GM 3.375 GM/50 ML BAG IVPB ONE ×2 (09:22→17:29)
[2022-03-06] MEDS ORDERED: diazePAM 5 MG TABLET ONE ×2 (09:22→21:27)
[2022-03-06] MEDS ORDERED: ENOXAPARIN NA (PORCINE) 30 MG/0.3 ML DISP.SYRIN SQ ONE (09:22)
[2022-03-06] MEDS: POLYETHYLENE GLYCOL (HEALTHYLAX) 3350 17 GM PACKET PEG SCH ×2 (09:50→22:42)
[2022-03-06] MEDS: ENOXAPARIN NA (PORCINE) 30 MG/0.3 ML DISP.SYRIN SQ SCH (09:50)
[2022-03-06] MEDS: levETIRAcetam 500 MG/5 ML ORAL SOLUTION (UNIT-DOSE CUPS) PEG SCH ×2 (09:50→22:42)
[2022-03-06] MEDS: diazePAM 5 MG TABLET PEG SCH ×2 (09:51→22:43)
[2022-03-06] MEDS: PIPERACILLIN/TAZOB 3.375 GM 3.375 GM in DEXTROSE 5%-WATER - 50 ML IVPB SCH ×3 (09:51→21:42)
[2022-03-06] MEDS ORDERED: MAGNESIUM 2GM/50ML STERILE WATER IVPB IVPB ONE (13:30)
[2022-03-06] MEDS ORDERED: MAGNESIUM SULFATE IN WATER 2 GM/50 ML IVPB IVPB ONE (13:52)
[2022-03-06] MEDS: D5-NS + 20 MEQ KCL - 20 MEQ/1,000 ML INFUS.BAG IV SCH (14:03)
[2022-03-06 15:33] LABS: BASO % 0.2 % (0-2.0); EOS % 0.6 % (0-4.5); HEMATOCRIT 39.2 % (32.4-45.2); HEMOGLOBIN 13.5 GM/dL (10.7-15.3); LYMPH % 9.2 % (8-40); MCH 30.3 pg (25.7-33.7); MCHC 34.4 g/dl (32.0-36.0); MEAN CELL VOLUME 88.1 fl (80-96); MEAN PLT VOLUME 8.4 fl (7.5-11.1); MONO % 5.9 % (3.8-10.2); NEUT % 84.1 % (42.8-82.8); PLATELET COUNT 149 10^3/uL (134-434); RBC 4.45 M/mm3 (3.60-5.2); RDW 13.7 % (11.6-15.6)
[2022-03-06 15:52] LABS: CHLORIDE 95 mmol/L (98-107); SODIUM 137 mmol/L (136-145)
[2022-03-06 15:53] LABS: CALCIUM 9.2 mg/dL (8.5-10.1)
[2022-03-06 15:55] LABS: CO2 35 mmol/L (21-32); GLUCOSE,RANDOM 101 mg/dL (74-106)
[2022-03-06 15:57] LABS: CREATININE 0.6 mg/dL (0.55-1.3)
[2022-03-06] MEDS ORDERED: VANCOMYCIN 1 GM/200 ML PREMIX BAG IVPB SCH (16:00)
[2022-03-06 16:42] LABS: ANION GAP 7 MMOL/L (8-16)
[2022-03-06] MEDS ORDERED: VANCOMYCIN 1 GRAM (PRE-DOCKED) 1,000 MG/250 ML BAG IVPB ONE (17:28)
[2022-03-06] MEDS ORDERED: BACLOFEN 10 MG TABLET (FP) ONE (21:27)
[2022-03-06] MEDS ORDERED: PIPERACILLIN/TAZOB 3.375 GM 3.375 GM in DEXTROSE 5%-WATER - 50 ML IVPB SCH (22:00)
[2022-03-06] MEDS: BACLOFEN 10 MG TABLET (FP) GT SCH (22:42)
[2022-03-06] MEDS: CALCIUM 500MG/VIT-D 200 UNITS COMBO TABLET (FP) GT SCH (22:42)
[2022-03-06] MEDS: SENNOSIDES 8.8 MG/5 ML BULK BOTTLE PEG SCH (22:42)
[2022-03-07] MEDS ORDERED: PIPERACILLIN/TAZOB 3.375 GM 3.375 GM/50 ML BAG IVPB ONE ×3 (03:50→17:55)
[2022-03-07] MEDS: PIPERACILLIN/TAZOB 3.375 GM 3.375 GM in DEXTROSE 5%-WATER - 50 ML IVPB SCH ×3 (03:58→18:04)
[2022-03-07] MEDS: BACLOFEN 10 MG TABLET (FP) GT SCH ×3 (07:00→23:05)
[2022-03-07] MEDS ORDERED: BACLOFEN 10 MG TABLET (FP) ONE ×3 (07:01→22:24)
[2022-03-07 07:39] LABS: BASO % 0.2 % (0-2.0); EOS % 1.5 % (0-4.5); HEMATOCRIT 36.9 % (32.4-45.2); HEMOGLOBIN 12.8 GM/dL (10.7-15.3); LYMPH % 11.9 % (8-40); MCH 30.4 pg (25.7-33.7); MCHC 34.6 g/dl (32.0-36.0); MEAN CELL VOLUME 87.8 fl (80-96); MEAN PLT VOLUME 9.2 fl (7.5-11.1); MONO % 6.7 % (3.8-10.2); NEUT % 79.7 % (42.8-82.8); PLATELET COUNT 146 10^3/uL (134-434); RBC 4.21 M/mm3 (3.60-5.2); RDW 14.1 % (11.6-15.6); WHITE BLOOD COUNT 4.1 K/mm3 (4.0-10.0)
[2022-03-07 07:53] LABS: BLOOD UREA NITROGEN 7.3 mg/dL (7-18); CALCIUM 9.5 mg/dL (8.5-10.1)
[2022-03-07 07:54] LABS: ALBUMIN 3.2 g/dl (3.4-5.0)
[2022-03-07 07:57] LABS: CREATININE 0.6 mg/dL (0.55-1.3)
[2022-03-07 07:58] LABS: TOT PROT 7.1 g/dl (6.4-8.2)
[2022-03-07 07:59] LABS: BILIRUBIN,TOTAL 0.4 mg/dL (0.2-1)
[2022-03-07] MEDS ORDERED: POLYETHYLENE GLYCOL (HEALTHYLAX) 3350 17 GM PACKET ONE ×2 (09:47→22:23)
[2022-03-07] MEDS ORDERED: ENOXAPARIN NA (PORCINE) 30 MG/0.3 ML DISP.SYRIN SQ ONE (09:48)
[2022-03-07] MEDS ORDERED: LORATADINE 10 MG TABLET ONE (09:48)
[2022-03-07] MEDS ORDERED: diazePAM 5 MG TABLET ONE ×2 (09:48→22:24)
[2022-03-07] MEDS: LORATADINE 10 MG TABLET GT SCH (10:04)
[2022-03-07] MEDS: POLYETHYLENE GLYCOL (HEALTHYLAX) 3350 17 GM PACKET PEG SCH ×2 (10:04→23:05)
[2022-03-07] MEDS: levETIRAcetam 500 MG/5 ML ORAL SOLUTION (UNIT-DOSE CUPS) PEG SCH ×2 (10:05→23:05)
[2022-03-07] MEDS: ZINC OXIDE 20% TOPICAL OINTMENT 30 GM TUBE TP SCH (10:05)
[2022-03-07] MEDS: CALCIUM 500MG/VIT-D 200 UNITS COMBO TABLET (FP) GT SCH ×2 (10:05→23:05)
[2022-03-07] MEDS: diazePAM 5 MG TABLET PEG SCH ×2 (10:05→23:05)
[2022-03-07] MEDS: ENOXAPARIN NA (PORCINE) 30 MG/0.3 ML DISP.SYRIN SQ SCH (10:05)
[2022-03-07] MEDS: D5-NS + 20 MEQ KCL - 20 MEQ/1,000 ML INFUS.BAG IV SCH (13:02)
[2022-03-07] MEDS ORDERED: POTASSIUM CHLORIDE ORAL LIQUID 20 MEQ/15 ML PO ONE (13:05)
[2022-03-07] MEDS ORDERED: POTASSIUM CHLORIDE ORAL LIQUID 20 MEQ/15 ML ONE (13:05)
[2022-03-07] MEDS ORDERED: POTASSIUM CHLORIDE ORAL LIQUID 20 MEQ/15 ML PEG ONE (13:05)
[2022-03-07] MEDS ORDERED: VANCOMYCIN 1 GM/200 ML PREMIX BAG IVPB SCH (16:00)
[2022-03-07] MEDS: SENNOSIDES 8.8 MG/5 ML BULK BOTTLE PEG SCH (23:05)
[2022-03-08] MEDS ORDERED: PIPERACILLIN/TAZOBACTAM 3.375 GM VIAL IVPB ONE ×3 (03:01→17:08)
[2022-03-08] MEDS ORDERED: DEXTROSE 5%-WATER - 50 ML IVPB ONE ×2 (03:01→17:08)
[2022-03-08] MEDS: PIPERACILLIN/TAZOB 3.375 GM 3.375 GM in DEXTROSE 5%-WATER - 50 ML IVPB SCH ×3 (03:02→17:19)
[2022-03-08] MEDS: D5-NS + 20 MEQ KCL - 20 MEQ/1,000 ML INFUS.BAG IV SCH ×3 (04:18→17:26)
[2022-03-08] MEDS: BACLOFEN 10 MG TABLET (FP) GT SCH ×3 (05:35→22:27)
[2022-03-08] MEDS: ZINC OXIDE 20% TOPICAL OINTMENT 30 GM TUBE TP SCH (10:02)
[2022-03-08] MEDS: LORATADINE 10 MG TABLET GT SCH (10:38)
[2022-03-08] MEDS: ENOXAPARIN NA (PORCINE) 30 MG/0.3 ML DISP.SYRIN SQ SCH (10:38)
[2022-03-08] MEDS: POLYETHYLENE GLYCOL (HEALTHYLAX) 3350 17 GM PACKET PEG SCH ×2 (10:38→22:27)
[2022-03-08] MEDS: levETIRAcetam 500 MG/5 ML ORAL SOLUTION (UNIT-DOSE CUPS) PEG SCH ×2 (10:39→22:40)
[2022-03-08] MEDS: CALCIUM 500MG/VIT-D 200 UNITS COMBO TABLET (FP) GT SCH ×2 (10:39→22:27)
[2022-03-08] MEDS: diazePAM 5 MG TABLET PEG SCH ×2 (10:39→22:27)
[2022-03-08 11:27] LABS: BASO % 0.4 % (0-2.0); EOS % 1.7 % (0-4.5); HEMATOCRIT 36.7 % (32.4-45.2); HEMOGLOBIN 12.2 GM/dL (10.7-15.3); LYMPH % 21.5 % (8-40); MCH 29.9 pg (25.7-33.7); MCHC 33.2 g/dl (32.0-36.0); MEAN CELL VOLUME 90.2 fl (80-96); MEAN PLT VOLUME 8.9 fl (7.5-11.1); MONO % 8.9 % (3.8-10.2); NEUT % 67.5 % (42.8-82.8); PLATELET COUNT 146 10^3/uL (134-434); RBC 4.07 M/mm3 (3.60-5.2); RDW 14.6 % (11.6-15.6)
[2022-03-08 11:46] LABS: CALCIUM 8.9 mg/dL (8.5-10.1)
[2022-03-08 11:47] LABS: BLOOD UREA NITROGEN 6.9 mg/dL (7-18)
[2022-03-08 11:51] LABS: CREATININE 0.6 mg/dL (0.55-1.3)
[2022-03-08] MEDS: SENNOSIDES 8.8 MG/5 ML BULK BOTTLE PEG SCH (22:40)
[2022-03-09] MEDS ORDERED: PIPERACILLIN/TAZOBACTAM 3.375 GM VIAL IVPB ONE ×2 (02:52→10:50)
[2022-03-09] MEDS ORDERED: DEXTROSE 5%-WATER - 50 ML IVPB ONE ×2 (02:52→10:50)
[2022-03-09] MEDS: PIPERACILLIN/TAZOB 3.375 GM 3.375 GM in DEXTROSE 5%-WATER - 50 ML IVPB SCH ×2 (02:55→10:55)
[2022-03-09] MEDS: BACLOFEN 10 MG TABLET (FP) GT SCH ×3 (05:45→21:39)
[2022-03-09] MEDS: diazePAM 5 MG TABLET PEG SCH ×2 (10:56→21:39)
[2022-03-09] MEDS: LORATADINE 10 MG TABLET GT SCH (10:56)
[2022-03-09] MEDS: levETIRAcetam 500 MG/5 ML ORAL SOLUTION (UNIT-DOSE CUPS) PEG SCH ×2 (10:56→21:39)
[2022-03-09] MEDS: CALCIUM 500MG/VIT-D 200 UNITS COMBO TABLET (FP) GT SCH ×2 (10:56→21:39)
[2022-03-09] MEDS: POLYETHYLENE GLYCOL (HEALTHYLAX) 3350 17 GM PACKET PEG SCH ×2 (10:56→21:39)
[2022-03-09] MEDS: ZINC OXIDE 20% TOPICAL OINTMENT 30 GM TUBE TP SCH (10:57)
[2022-03-09] MEDS: ENOXAPARIN NA (PORCINE) 30 MG/0.3 ML DISP.SYRIN SQ SCH (10:57)
[2022-03-09 12:04] LABS: BASO % 0.8 % (0-2.0); EOS % 3.9 % (0-4.5); HEMATOCRIT 31.2 % (32.4-45.2); HEMOGLOBIN 10.6 GM/dL (10.7-15.3); LYMPH % 42.2 % (8-40); MCH 30.6 pg (25.7-33.7); MCHC 33.9 g/dl (32.0-36.0); MEAN CELL VOLUME 90.3 fl (80-96); MEAN PLT VOLUME 9.3 fl (7.5-11.1); MONO % 11.4 % (3.8-10.2); NEUT % 41.7 % (42.8-82.8); PLATELET COUNT 127 10^3/uL (134-434); RBC 3.45 M/mm3 (3.60-5.2); RDW 14.8 % (11.6-15.6); WHITE BLOOD COUNT 2.9 K/mm3 (4.0-10.0)
[2022-03-09] MEDS: VANCOMYCIN 250 MG/5 ML ORAL SOLUTION GT SCH ×2 (12:10→17:05)
[2022-03-09 12:28] LABS: CALCIUM 8.8 mg/dL (8.5-10.1)
[2022-03-09 12:29] LABS: BLOOD UREA NITROGEN 4.9 mg/dL (7-18)
[2022-03-09 12:32] LABS: CREATININE 0.4 mg/dL (0.55-1.3); PHOSPHOROUS 2.3 mg/dL (2.5-4.9)
[2022-03-09 12:33] LABS: BILIRUBIN,TOTAL 0.3 mg/dL (0.2-1); TOT PROT 5.9 g/dl (6.4-8.2)
[2022-03-09 12:34] LABS: ALBUMIN 2.5 g/dl (3.4-5.0)
[2022-03-09] MEDS: D5-NS + 20 MEQ KCL - 20 MEQ/1,000 ML INFUS.BAG IV SCH (17:35)
[2022-03-09] MEDS: SENNOSIDES 8.8 MG/5 ML BULK BOTTLE PEG SCH (21:40)
[2022-03-10] MEDS: VANCOMYCIN 250 MG/5 ML ORAL SOLUTION GT SCH ×4 (00:29→17:37)
[2022-03-10] MEDS: D5-NS + 20 MEQ KCL - 20 MEQ/1,000 ML INFUS.BAG IV SCH ×2 (06:38→13:44)
[2022-03-10] MEDS: BACLOFEN 10 MG TABLET (FP) GT SCH ×3 (06:38→22:07)
[2022-03-10] MEDS: levETIRAcetam 500 MG/5 ML ORAL SOLUTION (UNIT-DOSE CUPS) PEG SCH ×2 (10:22→22:06)
[2022-03-10] MEDS: LORATADINE 10 MG TABLET GT SCH (10:22)
[2022-03-10] MEDS: CALCIUM 500MG/VIT-D 200 UNITS COMBO TABLET (FP) GT SCH ×2 (10:22→22:06)
[2022-03-10] MEDS: diazePAM 5 MG TABLET PEG SCH ×2 (10:22→22:06)
[2022-03-10] MEDS: POLYETHYLENE GLYCOL (HEALTHYLAX) 3350 17 GM PACKET PEG SCH ×2 (10:22→22:06)
[2022-03-10] MEDS: ZINC OXIDE 20% TOPICAL OINTMENT 30 GM TUBE TP SCH (10:22)
[2022-03-10] MEDS: ENOXAPARIN NA (PORCINE) 30 MG/0.3 ML DISP.SYRIN SQ SCH (10:22)
[2022-03-10 10:41] LABS: BASO % 0.4 % (0-2.0); EOS % 3.1 % (0-4.5); HEMATOCRIT 33.1 % (32.4-45.2); HEMOGLOBIN 11.5 GM/dL (10.7-15.3); LYMPH % 32.1 % (8-40); MCH 30.9 pg (25.7-33.7); MCHC 34.8 g/dl (32.0-36.0); MEAN CELL VOLUME 88.9 fl (80-96); MEAN PLT VOLUME 8.7 fl (7.5-11.1); MONO % 8.4 % (3.8-10.2); PLATELET COUNT 141 10^3/uL (134-434); RBC 3.73 M/mm3 (3.60-5.2); RDW 14.7 % (11.6-15.6); WHITE BLOOD COUNT 3.9 K/mm3 (4.0-10.0)
[2022-03-10 11:07] LABS: CALCIUM 8.8 mg/dL (8.5-10.1)
[2022-03-10 11:11] LABS: CREATININE 0.3 mg/dL (0.55-1.3)
[2022-03-10] MEDS: SENNOSIDES 8.8 MG/5 ML BULK BOTTLE PEG SCH (22:06)
[2022-03-11] MEDS: VANCOMYCIN 250 MG/5 ML ORAL SOLUTION GT SCH ×4 (00:05→17:01)
[2022-03-11] MEDS: BACLOFEN 10 MG TABLET (FP) GT SCH ×3 (06:15→22:07)
[2022-03-11 08:45] LABS: BASO % 0.2 % (0-2.0); EOS % 2.4 % (0-4.5); HEMATOCRIT 34.2 % (32.4-45.2); HEMOGLOBIN 11.8 GM/dL (10.7-15.3); LYMPH % 26.7 % (8-40); MCH 30.5 pg (25.7-33.7); MCHC 34.5 g/dl (32.0-36.0); MEAN CELL VOLUME 88.3 fl (80-96); MEAN PLT VOLUME 8.7 fl (7.5-11.1); MONO % 4.9 % (3.8-10.2); NEUT % 65.8 % (42.8-82.8); PLATELET COUNT 183 10^3/uL (134-434); RBC 3.88 M/mm3 (3.60-5.2); RDW 14.5 % (11.6-15.6); WHITE BLOOD COUNT 4.3 K/mm3 (4.0-10.0)
[2022-03-11 09:14] LABS: ALBUMIN 2.6 g/dl (3.4-5.0); BLOOD UREA NITROGEN 7.1 mg/dL (7-18); CALCIUM 8.9 mg/dL (8.5-10.1); MAGNESIUM 1.8 mg/dL (1.8-2.4)
[2022-03-11 09:17] LABS: CREATININE 0.4 mg/dL (0.55-1.3); PHOSPHOROUS 3.4 mg/dL (2.5-4.9)
[2022-03-11 09:18] LABS: BILIRUBIN,TOTAL 0.2 mg/dL (0.2-1); TOT PROT 6.2 g/dl (6.4-8.2)
[2022-03-11] MEDS: ENOXAPARIN NA (PORCINE) 30 MG/0.3 ML DISP.SYRIN SQ SCH (09:34)
[2022-03-11] MEDS: diazePAM 5 MG TABLET PEG SCH ×2 (09:35→22:07)
[2022-03-11] MEDS: LORATADINE 10 MG TABLET GT SCH (09:35)
[2022-03-11] MEDS: levETIRAcetam 500 MG/5 ML ORAL SOLUTION (UNIT-DOSE CUPS) PEG SCH ×2 (09:35→22:07)
[2022-03-11] MEDS: ZINC OXIDE 20% TOPICAL OINTMENT 30 GM TUBE TP SCH (09:35)
[2022-03-11] MEDS: POLYETHYLENE GLYCOL (HEALTHYLAX) 3350 17 GM PACKET PEG SCH (09:35)
[2022-03-11] MEDS: CALCIUM 500MG/VIT-D 200 UNITS COMBO TABLET (FP) GT SCH ×2 (09:35→22:07)
[2022-03-11 12:38] VITALS: BMI 22.6
[2022-03-11] MEDS: D5-NS + 20 MEQ KCL - 20 MEQ/1,000 ML INFUS.BAG IV SCH (12:52)
[2022-03-11] MEDS ORDERED: diazePAM 5 MG TABLET GT SCH (23:19)
[2022-03-11] MEDS ORDERED: SENNOSIDES 8.8 MG/5 ML BULK BOTTLE GT SCH (23:19)
[2022-03-11] MEDS ORDERED: levETIRAcetam 500 MG/5 ML ORAL SOLUTION (UNIT-DOSE CUPS) GT SCH (23:20)
[2022-03-11] MEDS ORDERED: POLYETHYLENE GLYCOL (HEALTHYLAX) 3350 17 GM PACKET GT SCH (23:20)
[2022-03-12] MEDS: VANCOMYCIN 250 MG/5 ML ORAL SOLUTION GT SCH ×3 (02:17→13:11)
[2022-03-12] MEDS: BACLOFEN 10 MG TABLET (FP) GT SCH ×2 (05:19→13:11)
[2022-03-12] MEDS: D5-NS + 20 MEQ KCL - 20 MEQ/1,000 ML INFUS.BAG IV SCH ×2 (05:34→13:12)
[2022-03-12 09:52] LABS: BASO % 0.4 % (0-2.0); EOS % 2.6 % (0-4.5); HEMOGLOBIN 11.9 GM/dL (10.7-15.3); LYMPH % 15.6 % (8-40); MCH 30.6 pg (25.7-33.7); MCHC 34.1 g/dl (32.0-36.0); MEAN CELL VOLUME 89.7 fl (80-96); MEAN PLT VOLUME 9.1 fl (7.5-11.1); MONO % 7.7 % (3.8-10.2); NEUT % 73.7 % (42.8-82.8); PLATELET COUNT 189 10^3/uL (134-434); RDW 14.7 % (11.6-15.6); WHITE BLOOD COUNT 4.8 K/mm3 (4.0-10.0)
[2022-03-12] MEDS ORDERED: MULTIVIT-MINERALS ORAL LIQUID GT SCH (10:00)
[2022-03-12] MEDS ORDERED: ASCORBIC ACID 500 MG/5 ML UNIT DOSE CUP GT SCH (10:00)
[2022-03-12 10:11] LABS: CALCIUM 8.4 mg/dL (8.5-10.1)
[2022-03-12 10:12] LABS: BLOOD UREA NITROGEN 9.2 mg/dL (7-18)
[2022-03-12 10:15] LABS: CREATININE 0.4 mg/dL (0.55-1.3)
[2022-03-12] MEDS: CALCIUM 500MG/VIT-D 200 UNITS COMBO TABLET (FP) GT SCH (10:58)
[2022-03-12] MEDS: LORATADINE 10 MG TABLET GT SCH (10:59)
[2022-03-12] MEDS: ENOXAPARIN NA (PORCINE) 30 MG/0.3 ML DISP.SYRIN SQ SCH (10:59)
[2022-03-12] MEDS: ZINC OXIDE 20% TOPICAL OINTMENT 30 GM TUBE TP SCH (11:10)
[2022-03-12 16:26] VITALS: BP 100/66; PULSE 96; TEMP 98.9
== END 2022-03-12 17:25 | disposition home or self-care (01) | DRG 247 ==
LOC: JER 10:07 → JERBED 16:41 → J6S 03-08 01:53
PROVIDERS: ADMIT Internal Medicine; ATTEND Internal Medicine
DX: K56.41 Fecal impaction (principal); F72 Severe intellectual disabilities; T68.XXXA Hypothermia, initial encounter; A04.72 Enterocolitis due to Clostridium difficile, not specified as recurrent; E83.42 Hypomagnesemia; G40.909 Epilepsy, unspecified, not intractable, without status epilepticus; G80.9 Cerebral palsy, unspecified; K52.9 Noninfective gastroenteritis and colitis, unspecified; R11.2 Nausea with vomiting, unspecified; R74.01 Elevation of levels of liver transaminase levels; D69.6 Thrombocytopenia, unspecified; E87.6 Hypokalemia; K21.9 Gastro-esophageal reflux disease without esophagitis; D72.819 Decreased white blood cell count, unspecified; Z74.01 Bed confinement status
CPT/HCPCS: 0241U-QW; 36415; 71045-TC-FY; 74018-TC-FY; 74176-TC; 74177-TC; 80048; 80053; 81003; 82550; 82553; 82803; 82962; 83605; 83735; 84100; 84443; 84484; 85025; 85610; 85730; 86850; 86900; 86901; 87040; 87045; 87046; 87086; 87177; 87186; 87209; 87324; 87449; 93005; 93010; 99285-25; C9803-CS; J0475; Q9967; U0003; U0005

== ENCOUNTER 2022-04-15 11:15 | Emergency (ER) | payer OTHER ==
[2022-04-15 11:51] VITALS: RESP 20; BMI 27.3
[2022-04-15] MEDS ORDERED: SODIUM CHLORIDE IV ONE (12:04)
[2022-04-15 13:41] LABS: BASO % 0.6 % (0-2.0); EOS % 0.5 % (0-4.5); HEMATOCRIT 42.3 % (32.4-45.2); HEMOGLOBIN 14.4 GM/dL (10.7-15.3); LYMPH % 16.2 % (8-40); MCH 30.5 pg (25.7-33.7); MEAN CELL VOLUME 89.8 fl (80-96); MEAN PLT VOLUME 9.5 fl (7.5-11.1); MONO % 7.7 % (3.8-10.2); PLATELET COUNT 174 10^3/uL (134-434); RBC 4.71 M/mm3 (3.60-5.2); RDW 15.3 % (11.6-15.6); WHITE BLOOD COUNT 6.5 K/mm3 (4.0-10.0)
[2022-04-15 13:45] LABS: INR 1.05 (0.83-1.09); PROTHROMBIN TIME (PATIENT) 12.1 SEC (9.7-13.0)
[2022-04-15 13:48] LABS: ACTIVATED PTT 47.2 SECONDS (25.2-36.5)
[2022-04-15 14:03] LABS: CALCIUM 9.4 mg/dL (8.5-10.1)
[2022-04-15 14:04] LABS: ALBUMIN 3.4 g/dl (3.4-5.0); BLOOD UREA NITROGEN 13.9 mg/dL (7-18)
[2022-04-15 14:07] LABS: CREATININE 0.4 mg/dL (0.55-1.3)
[2022-04-15 14:09] LABS: BILIRUBIN,TOTAL 0.3 mg/dL (0.2-1); TOT PROT 7.6 g/dl (6.4-8.2)
[2022-04-15 14:50] LABS: PH,URINE 7.5 (5.0-8.0); URINE APPEARANCE CLEAR; URINE BILIRUBIN NEGATIVE (NEGATIVE); URINE COLOR YELLOW; URINE GLUCOSE (UA) NEGATIVE (NEGATIVE); URINE KETONE NEGATIVE (NEGATIVE); URINE LEUK ESTERASE 1+ (NEGATIVE); URINE NITRITE NEGATIVE (NEGATIVE); URINE PROTEIN NEGATIVE (NEGATIVE); URINE UROBILINOGEN 0.2 mg/dL (0.2-1.0)
[2022-04-15 14:54] LABS: URINE RBC 6 /uL (0-23.9)
[2022-04-15 14:55] LABS: EPI CELLS 19 /uL (0-25.1); HYALINE CASTS 0.37 /uL (0-3.1); URINE BACTERIA 21 /uL (0-1359); URINE WBC 9 /uL (0-25.8)
[2022-04-15 15:36] VITALS: BP 118/72; PULSE 69; TEMP 97.5
== END 2022-04-15 17:52 | disposition home or self-care (01) ==
LOC: JER 11:15
PROC: 3E0337Z Introduction of Electrolytic and Water Balance Substance into Peripheral Vein, Percutaneous Approach (ICD-10-PCS; principal; 2022-04-15)
DX: R50.9 Fever, unspecified (principal)
CPT/HCPCS: 0241U-QW; 36415; 71045-TC-FY; 80053; 81003; 83605; 84484; 85025; 85610; 85730; 86850; 86900; 86901; 87040; 87086; 93005; 93010; 99285-25

== ENCOUNTER 2022-07-15 15:11 | Inpatient (IN) | payer OTHER ==
[2022-07-15 16:01] VITALS: BMI 27.0
[2022-07-15 16:43] LABS: BASO % 0.5 % (0-2.0); EOS % 1.8 % (0-4.5); HEMATOCRIT 38.9 % (32.4-45.2); HEMOGLOBIN 13.3 GM/dL (10.7-15.3); LYMPH % 12.5 % (8-40); MCH 30.4 pg (25.7-33.7); MCHC 34.2 g/dl (32.0-36.0); MEAN CELL VOLUME 88.7 fl (80-96); MEAN PLT VOLUME 9.7 fl (7.5-11.1); MONO % 6.4 % (3.8-10.2); NEUT % 78.8 % (42.8-82.8); PLATELET COUNT 100 10^3/uL (134-434); RBC 4.39 M/mm3 (3.60-5.2); RDW 14.4 % (11.6-15.6); WHITE BLOOD COUNT 5.7 K/mm3 (4.0-10.0)
[2022-07-15 17:11] LABS: ALBUMIN 3.2 g/dl (3.4-5.0); CALCIUM 12.9 mg/dL (8.5-10.1)
[2022-07-15 17:12] LABS: BLOOD UREA NITROGEN 42.4 mg/dL (7-18)
[2022-07-15 17:14] LABS: CREATININE 1.5 mg/dL (0.55-1.3)
[2022-07-15 17:16] LABS: BILIRUBIN,TOTAL 0.2 mg/dL (0.2-1); TOT PROT 7.4 g/dl (6.4-8.2)
[2022-07-15] MEDS ORDERED: VANCOMYCIN 1 GM in D5W (PRE-DOCKED) 1,000 MG/250 ML IVPB ONE (17:40)
[2022-07-15] MEDS ORDERED: SODIUM CHLORIDE 0.9% 500 ML INFUS.BAG IV ONE (18:44)
[2022-07-15] MEDS ORDERED: VANCOMYCIN/WATER FOR INJ (PEG) 1,000 MG/200 ML BAG IVPB ONE (20:53)
[2022-07-15] MEDS ORDERED: PIPERACILLIN/TAZOB 4.5 GM 4.5 GM/100 ML BAG IVPB ONE (20:53)
[2022-07-15] MEDS: PIPERACILLIN/TAZOB 4.5 GM 4.5 GM in DEXTROSE 5%-WATER 100 ML IVPB SCH (21:21)
[2022-07-15] MEDS: SODIUM CHLORIDE 1,000 ML IV SCH (21:48)
[2022-07-16] MEDS: HEPARIN NA (PORCINE) 5,000 UNITS/ML 1ML VIAL SQ SCH ×4 (00:10→21:28)
[2022-07-16] MEDS ORDERED: HEPARIN NA (PORCINE) 5,000 UNITS/ML 1ML VIAL ONE (00:10)
[2022-07-16] MEDS ORDERED: PIPERACILLIN/TAZOB 4.5 GM 4.5 GM/100 ML BAG IVPB ONE (00:11)
[2022-07-16] MEDS: PIPERACILLIN/TAZOB 4.5 GM 4.5 GM in DEXTROSE 5%-WATER 100 ML IVPB SCH ×2 (03:06→09:48)
[2022-07-16] MEDS: SODIUM CHLORIDE 1,000 ML IV SCH ×2 (03:07→21:44)
[2022-07-16 09:05] LABS: EPI CELLS 10 /uL (0-25.1); HYALINE CASTS 6 /uL (0-3.1); URINE APPEARANCE TURBID; URINE BACTERIA 464 /uL (0-1359); URINE BILIRUBIN NEGATIVE (NEGATIVE); URINE COLOR YELLOW; URINE GLUCOSE (UA) NEGATIVE (NEGATIVE); URINE KETONE NEGATIVE (NEGATIVE); URINE LEUK ESTERASE 3+ (NEGATIVE); URINE NITRITE NEGATIVE (NEGATIVE); URINE PROTEIN 1+ (NEGATIVE); URINE RBC 62 /uL (0-23.9); URINE UROBILINOGEN 0.2 mg/dL (0.2-1.0); URINE WBC 184 /uL (0-25.8)
[2022-07-16] MEDS: levETIRAcetam 500 MG TABLET (FP) PO SCH ×2 (09:47→21:28)
[2022-07-16] MEDS: POLYETHYLENE GLYCOL (HEALTHYLAX) 3350 17 GM PACKET PO SCH ×2 (09:47→21:28)
[2022-07-16] MEDS: diazePAM 5 MG TABLET GT SCH ×2 (09:47→21:28)
[2022-07-16 09:54] LABS: URINE CRYSTALS NEGATIVE /hpf
[2022-07-16] MEDS ORDERED: ENOXAPARIN NA (PORCINE) 40 MG/0.4 ML DISP.SYRIN SQ SCH (10:00)
[2022-07-16] MEDS ORDERED: POLYETHYLENE GLYCOL 3350 255 GM BTL PO SCH (10:00)
[2022-07-16 10:23] LABS: HEMATOCRIT 36.4 % (32.4-45.2); HEMOGLOBIN 12.1 GM/dL (10.7-15.3); MCH 29.6 pg (25.7-33.7); MCHC 33.1 g/dl (32.0-36.0); MEAN CELL VOLUME 89.3 fl (80-96); MEAN PLT VOLUME 10.2 fl (7.5-11.1); PLATELET COUNT 70 10^3/uL (134-434); RBC 4.07 M/mm3 (3.60-5.2); RDW 14.4 % (11.6-15.6); WHITE BLOOD COUNT 6.9 K/mm3 (4.0-10.0)
[2022-07-16 10:41] LABS: ALBUMIN 2.7 g/dl (3.4-5.0); BLOOD UREA NITROGEN 37.4 mg/dL (7-18); MAGNESIUM 3.3 mg/dL (1.8-2.4)
[2022-07-16 10:43] LABS: CREATININE 1.6 mg/dL (0.55-1.3)
[2022-07-16 10:44] LABS: BILIRUBIN,TOTAL 0.3 mg/dL (0.2-1); PHOSPHOROUS 5.4 mg/dL (2.5-4.9); TOT PROT 6.4 g/dl (6.4-8.2)
[2022-07-16 10:55] LABS: CALCIUM 10.3 mg/dL (8.5-10.1)
[2022-07-16 10:57] LABS: ANISOCYTOSIS 0; HELMET CELLS 0; HOWELL-JOLLY BODIES 0; MACROCYTOSIS 0; OVALOCYTE 0; ROULEAU 0; SICKELED CELLS 0; TARGET CELLS 0; TEAR DROP CELLS 0; TOXIC GRANULATION 0
[2022-07-16] MEDS: BACLOFEN 10 MG TABLET (FP) GT SCH ×2 (13:49→21:28)
[2022-07-16] MEDS: CEFTRIAXONE 1 GM in DEXTROSE 5%-WATER - 50 ML IVPB SCH (13:49)
[2022-07-17] MEDS: BACLOFEN 10 MG TABLET (FP) GT SCH ×3 (06:25→22:37)
[2022-07-17] MEDS: HEPARIN NA (PORCINE) 5,000 UNITS/ML 1ML VIAL SQ SCH ×3 (06:25→22:37)
[2022-07-17 09:50] LABS: BASO % 0.2 % (0-2.0); EOS % 1.9 % (0-4.5); HEMATOCRIT 32.1 % (32.4-45.2); HEMOGLOBIN 10.8 GM/dL (10.7-15.3); LYMPH % 9.9 % (8-40); MCH 30.1 pg (25.7-33.7); MCHC 33.5 g/dl (32.0-36.0); MEAN CELL VOLUME 89.9 fl (80-96); MEAN PLT VOLUME 9.3 fl (7.5-11.1); MONO % 6.9 % (3.8-10.2); NEUT % 81.1 % (42.8-82.8); PLATELET COUNT 89 10^3/uL (134-434); RBC 3.57 M/mm3 (3.60-5.2); RDW 14.4 % (11.6-15.6); WHITE BLOOD COUNT 6.1 K/mm3 (4.0-10.0)
[2022-07-17] MEDS: diazePAM 5 MG TABLET GT SCH ×2 (10:26→22:36)
[2022-07-17] MEDS: levETIRAcetam 500 MG TABLET (FP) PO SCH ×2 (10:26→22:37)
[2022-07-17] MEDS: POLYETHYLENE GLYCOL (HEALTHYLAX) 3350 17 GM PACKET PO SCH ×2 (10:26→23:07)
[2022-07-17] MEDS: CEFTRIAXONE 1 GM in DEXTROSE 5%-WATER - 50 ML IVPB SCH (10:27)
[2022-07-17 11:10] LABS: ALBUMIN 2.3 g/dl (3.4-5.0); BILIRUBIN,TOTAL 0.2 mg/dL (0.2-1); BLOOD UREA NITROGEN 38.5 mg/dL (7-18); CALCIUM 9.4 mg/dL (8.5-10.1); CREATININE 1.6 mg/dL (0.55-1.3); MAGNESIUM 2.6 mg/dL (1.8-2.4); TOT PROT 5.7 g/dl (6.4-8.2)
[2022-07-18] MEDS: BACLOFEN 10 MG TABLET (FP) GT SCH ×3 (06:31→22:54)
[2022-07-18] MEDS: HEPARIN NA (PORCINE) 5,000 UNITS/ML 1ML VIAL SQ SCH ×3 (06:31→22:53)
[2022-07-18] MEDS: PIPERACILLIN/TAZOB 4.5 GM 4.5 GM in DEXTROSE 5%-WATER 100 ML IVPB SCH ×2 (09:26→09:27)
[2022-07-18] MEDS: POLYETHYLENE GLYCOL (HEALTHYLAX) 3350 17 GM PACKET PO SCH ×2 (09:30→22:53)
[2022-07-18] MEDS: CEFTRIAXONE 1 GM in DEXTROSE 5%-WATER - 50 ML IVPB SCH (09:30)
[2022-07-18] MEDS: diazePAM 5 MG TABLET GT SCH ×2 (09:30→22:53)
[2022-07-18] MEDS: levETIRAcetam 500 MG TABLET (FP) PO SCH ×2 (09:31→22:53)
[2022-07-18 09:42] LABS: EOS % 1.9 % (0-4.5); HEMATOCRIT 29.3 % (32.4-45.2); HEMOGLOBIN 9.8 GM/dL (10.7-15.3); LYMPH % 13.7 % (8-40); MCH 30.3 pg (25.7-33.7); MCHC 33.5 g/dl (32.0-36.0); MEAN CELL VOLUME 90.6 fl (80-96); MEAN PLT VOLUME 9.4 fl (7.5-11.1); MONO % 5.6 % (3.8-10.2); NEUT % 77.8 % (42.8-82.8); PLATELET COUNT 96 10^3/uL (134-434); RBC 3.24 M/mm3 (3.60-5.2); RDW 14.4 % (11.6-15.6); WHITE BLOOD COUNT 6.4 K/mm3 (4.0-10.0)
[2022-07-18 10:10] LABS: CALCIUM 8.5 mg/dL (8.5-10.1)
[2022-07-18 10:11] LABS: ALBUMIN 2.2 g/dl (3.4-5.0); BLOOD UREA NITROGEN 27.1 mg/dL (7-18); MAGNESIUM 2.3 mg/dL (1.8-2.4)
[2022-07-18 10:15] LABS: BILIRUBIN,TOTAL 0.2 mg/dL (0.2-1)
[2022-07-18 10:17] LABS: TOT PROT 5.7 g/dl (6.4-8.2)
[2022-07-18] MEDS: SCOPOLAMINE HYDROBROMIDE 1 PATCH PATCH.TD72 TD SCH (13:31)
[2022-07-18] MEDS ORDERED: POTASSIUM CHLORIDE ORAL LIQUID 20 MEQ/15 ML PO SCH (13:45)
[2022-07-18] MEDS: POTASSIUM CHLORIDE ORAL LIQUID 20 MEQ/15 ML GT SCH ×2 (14:09→22:53)
[2022-07-18] MEDS ORDERED: ACETAMINOPHEN 650 MG/20.3 ML ORAL SOLUTION (CUPS) GT ONE (23:04)
[2022-07-19] MEDS ORDERED: SODIUM CHLORIDE 500 ML IV STA (02:58)
[2022-07-19] MEDS: HEPARIN NA (PORCINE) 5,000 UNITS/ML 1ML VIAL SQ SCH ×3 (07:06→22:37)
[2022-07-19] MEDS: BACLOFEN 10 MG TABLET (FP) GT SCH ×3 (07:06→22:37)
[2022-07-19 09:36] LABS: BASO % 0.8 % (0-2.0); EOS % 1.9 % (0-4.5); HEMATOCRIT 27.3 % (32.4-45.2); HEMOGLOBIN 9.2 GM/dL (10.7-15.3); LYMPH % 22.3 % (8-40); MCH 30.6 pg (25.7-33.7); MCHC 33.6 g/dl (32.0-36.0); MEAN CELL VOLUME 91.2 fl (80-96); MEAN PLT VOLUME 9.4 fl (7.5-11.1); MONO % 7.6 % (3.8-10.2); NEUT % 67.4 % (42.8-82.8); PLATELET COUNT 95 10^3/uL (134-434); RBC 2.99 M/mm3 (3.60-5.2); RDW 15.1 % (11.6-15.6); WHITE BLOOD COUNT 6.1 K/mm3 (4.0-10.0)
[2022-07-19 09:56] LABS: CALCIUM 8.4 mg/dL (8.5-10.1)
[2022-07-19 09:57] LABS: BLOOD UREA NITROGEN 26.6 mg/dL (7-18); MAGNESIUM 2.2 mg/dL (1.8-2.4)
[2022-07-19 10:00] LABS: CREATININE 0.9 mg/dL (0.55-1.3)
[2022-07-19 10:01] LABS: ALBUMIN 2.2 g/dl (3.4-5.0); BILIRUBIN,TOTAL 0.1 mg/dL (0.2-1); TOT PROT 5.6 g/dl (6.4-8.2)
[2022-07-19] MEDS: levETIRAcetam 500 MG TABLET (FP) PO SCH ×2 (10:29→22:37)
[2022-07-19] MEDS: CEFTRIAXONE 1 GM in DEXTROSE 5%-WATER - 50 ML IVPB SCH (10:29)
[2022-07-19] MEDS: diazePAM 5 MG TABLET GT SCH ×2 (10:29→22:37)
[2022-07-19] MEDS: POLYETHYLENE GLYCOL (HEALTHYLAX) 3350 17 GM PACKET PO SCH ×2 (10:30→22:37)
[2022-07-19] MEDS ORDERED: DEXTROSE 5%-WATER - 1,000 ML IV SCH (13:00)
[2022-07-20] MEDS: BACLOFEN 10 MG TABLET (FP) GT SCH ×3 (06:48→23:01)
[2022-07-20] MEDS: HEPARIN NA (PORCINE) 5,000 UNITS/ML 1ML VIAL SQ SCH ×3 (06:48→22:59)
[2022-07-20] MEDS: AMINO ACIDS/PROTEIN HYDROLYS 30 ML LIQUID.PKT GT SCH (10:00)
[2022-07-20] MEDS: diazePAM 5 MG TABLET GT SCH ×2 (10:00→23:01)
[2022-07-20] MEDS: CEFTRIAXONE 1 GM in DEXTROSE 5%-WATER - 50 ML IVPB SCH (10:00)
[2022-07-20] MEDS: POLYETHYLENE GLYCOL (HEALTHYLAX) 3350 17 GM PACKET PO SCH ×2 (10:00→22:59)
[2022-07-20] MEDS: levETIRAcetam 500 MG TABLET (FP) PO SCH ×2 (10:00→23:01)
[2022-07-20 11:18] LABS: BASO % 0.6 % (0-2.0); EOS % 2.6 % (0-4.5); HEMATOCRIT 27.1 % (32.4-45.2); HEMOGLOBIN 9.2 GM/dL (10.7-15.3); LYMPH % 30.7 % (8-40); MCH 30.7 pg (25.7-33.7); MCHC 33.8 g/dl (32.0-36.0); MEAN CELL VOLUME 90.8 fl (80-96); MEAN PLT VOLUME 9.1 fl (7.5-11.1); MONO % 6.8 % (3.8-10.2); NEUT % 59.3 % (42.8-82.8); PLATELET COUNT 110 10^3/uL (134-434); RBC 2.99 M/mm3 (3.60-5.2); RDW 14.6 % (11.6-15.6); WHITE BLOOD COUNT 5.7 K/mm3 (4.0-10.0)
[2022-07-20 11:43] LABS: CALCIUM 8.7 mg/dL (8.5-10.1)
[2022-07-20 11:44] LABS: ALBUMIN 2.3 g/dl (3.4-5.0); BLOOD UREA NITROGEN 18.7 mg/dL (7-18); MAGNESIUM 1.9 mg/dL (1.8-2.4)
[2022-07-20 11:47] LABS: CREATININE 0.7 mg/dL (0.55-1.3)
[2022-07-20 11:48] LABS: BILIRUBIN,TOTAL 0.2 mg/dL (0.2-1); TOT PROT 5.8 g/dl (6.4-8.2)
[2022-07-20] MEDS ORDERED: AMOX TR/POTASSIUM CLAVULANATE 250 MG/5 ML BOTTLE GT SCH ×2 (17:30→17:44)
[2022-07-20] MEDS: AMOX TR/POTASSIUM CLAVULANATE 250 MG/5 ML BOTTLE GT SCH (18:15)
[2022-07-21] MEDS: HEPARIN NA (PORCINE) 5,000 UNITS/ML 1ML VIAL SQ SCH ×3 (05:44→22:50)
[2022-07-21] MEDS: BACLOFEN 10 MG TABLET (FP) GT SCH ×3 (05:46→22:51)
[2022-07-21] MEDS ORDERED: AMOX TR/POTASSIUM CLAVULANATE 125 MG/5 ML BOTTLE 75ML NR SCH (08:00)
[2022-07-21 09:50] LABS: BASO % 0.7 % (0-2.0); EOS % 2.4 % (0-4.5); HEMATOCRIT 29.2 % (32.4-45.2); HEMOGLOBIN 9.9 GM/dL (10.7-15.3); LYMPH % 24.8 % (8-40); MCH 30.2 pg (25.7-33.7); MCHC 33.8 g/dl (32.0-36.0); MEAN CELL VOLUME 89.4 fl (80-96); MEAN PLT VOLUME 9.9 fl (7.5-11.1); MONO % 5.8 % (3.8-10.2); NEUT % 66.3 % (42.8-82.8); PLATELET COUNT 146 10^3/uL (134-434); RBC 3.27 M/mm3 (3.60-5.2); RDW 14.5 % (11.6-15.6); WHITE BLOOD COUNT 5.7 K/mm3 (4.0-10.0)
[2022-07-21 10:28] LABS: ALBUMIN 2.4 g/dl (3.4-5.0); BLOOD UREA NITROGEN 19.5 mg/dL (7-18); CALCIUM 8.3 mg/dL (8.5-10.1); MAGNESIUM 1.9 mg/dL (1.8-2.4)
[2022-07-21 10:31] LABS: CREATININE 0.6 mg/dL (0.55-1.3)
[2022-07-21 10:32] LABS: BILIRUBIN,TOTAL 0.2 mg/dL (0.2-1)
[2022-07-21] MEDS: diazePAM 5 MG TABLET GT SCH ×2 (10:32→22:50)
[2022-07-21] MEDS: AMOX TR/POTASSIUM CLAVULANATE 250 MG/5 ML BOTTLE GT SCH ×2 (10:32→18:02)
[2022-07-21] MEDS: levETIRAcetam 500 MG TABLET (FP) PO SCH ×2 (10:32→22:50)
[2022-07-21] MEDS: POLYETHYLENE GLYCOL (HEALTHYLAX) 3350 17 GM PACKET PO SCH ×2 (10:33→22:50)
[2022-07-21] MEDS: AMINO ACIDS/PROTEIN HYDROLYS 30 ML LIQUID.PKT GT SCH (10:33)
[2022-07-21] MEDS: SCOPOLAMINE HYDROBROMIDE 1 PATCH PATCH.TD72 TD SCH (17:58)
[2022-07-22] MEDS ORDERED: ACETAMINOPHEN 650 MG/20.3 ML ORAL SOLUTION (CUPS) GT ONE (05:47)
[2022-07-22] MEDS: BACLOFEN 10 MG TABLET (FP) GT SCH ×3 (06:14→22:03)
[2022-07-22] MEDS: HEPARIN NA (PORCINE) 5,000 UNITS/ML 1ML VIAL SQ SCH ×3 (06:17→22:02)
[2022-07-22 10:09] LABS: BASO % 0.7 % (0-2.0); EOS % 2.2 % (0-4.5); HEMATOCRIT 30.7 % (32.4-45.2); HEMOGLOBIN 10.3 GM/dL (10.7-15.3); LYMPH % 35.8 % (8-40); MCH 30.2 pg (25.7-33.7); MCHC 33.5 g/dl (32.0-36.0); MEAN CELL VOLUME 90.1 fl (80-96); NEUT % 54.3 % (42.8-82.8); PLATELET COUNT 222 10^3/uL (134-434); RBC 3.41 M/mm3 (3.60-5.2); RDW 14.5 % (11.6-15.6); WHITE BLOOD COUNT 6.2 K/mm3 (4.0-10.0)
[2022-07-22] MEDS: AMINO ACIDS/PROTEIN HYDROLYS 30 ML LIQUID.PKT GT SCH (10:15)
[2022-07-22] MEDS: POLYETHYLENE GLYCOL (HEALTHYLAX) 3350 17 GM PACKET PO SCH ×2 (10:15→11:19)
[2022-07-22] MEDS: levETIRAcetam 500 MG TABLET (FP) PO SCH ×2 (10:15→22:03)
[2022-07-22] MEDS: diazePAM 5 MG TABLET GT SCH ×2 (10:15→22:03)
[2022-07-22] MEDS: AMOX TR/POTASSIUM CLAVULANATE 250 MG/5 ML BOTTLE GT SCH ×2 (10:16→17:39)
[2022-07-22 10:33] LABS: ALBUMIN 2.5 g/dl (3.4-5.0); BLOOD UREA NITROGEN 21.1 mg/dL (7-18)
[2022-07-22 10:34] LABS: CALCIUM 8.9 mg/dL (8.5-10.1)
[2022-07-22 10:35] LABS: MAGNESIUM 2.2 mg/dL (1.8-2.4)
[2022-07-22 10:36] LABS: CREATININE 0.8 mg/dL (0.55-1.3)
[2022-07-22 10:38] LABS: BILIRUBIN,TOTAL 0.3 mg/dL (0.2-1); TOT PROT 6.2 g/dl (6.4-8.2)
[2022-07-22] MEDS ORDERED: FUROSEMIDE 40 MG/4 ML INJECTABLE VIAL IVPUSH ONE (12:47)
[2022-07-22 15:23] LABS: URINE APPEARANCE CLEAR; URINE BILIRUBIN NEGATIVE (NEGATIVE); URINE COLOR YELLOW; URINE GLUCOSE (UA) NEGATIVE (NEGATIVE); URINE KETONE NEGATIVE (NEGATIVE); URINE LEUK ESTERASE NEGATIVE (NEGATIVE); URINE NITRITE NEGATIVE (NEGATIVE); URINE PROTEIN NEGATIVE (NEGATIVE); URINE UROBILINOGEN 0.2 mg/dL (0.2-1.0)
[2022-07-23] MEDS: HEPARIN NA (PORCINE) 5,000 UNITS/ML 1ML VIAL SQ SCH ×3 (06:13→22:04)
[2022-07-23] MEDS: BACLOFEN 10 MG TABLET (FP) GT SCH ×3 (06:13→22:04)
[2022-07-23 09:15] LABS: BASO % 0.9 % (0-2.0); EOS % 1.4 % (0-4.5); HEMATOCRIT 28.7 % (32.4-45.2); HEMOGLOBIN 9.7 GM/dL (10.7-15.3); LYMPH % 24.8 % (8-40); MCH 30.3 pg (25.7-33.7); MEAN CELL VOLUME 89.3 fl (80-96); MEAN PLT VOLUME 8.6 fl (7.5-11.1); MONO % 7.2 % (3.8-10.2); NEUT % 65.7 % (42.8-82.8); PLATELET COUNT 290 10^3/uL (134-434); RBC 3.21 M/mm3 (3.60-5.2); RDW 14.5 % (11.6-15.6); WHITE BLOOD COUNT 7.8 K/mm3 (4.0-10.0)
[2022-07-23 09:25] LABS: ALBUMIN 2.5 g/dl (3.4-5.0); BLOOD UREA NITROGEN 20.7 mg/dL (7-18); CALCIUM 8.3 mg/dL (8.5-10.1); MAGNESIUM 2.3 mg/dL (1.8-2.4)
[2022-07-23 09:29] LABS: CREATININE 0.6 mg/dL (0.55-1.3)
[2022-07-23 09:30] LABS: BILIRUBIN,TOTAL 0.2 mg/dL (0.2-1)
[2022-07-23 09:32] LABS: TOT PROT 6.1 g/dl (6.4-8.2)
[2022-07-23] MEDS: levETIRAcetam 500 MG TABLET (FP) PO SCH ×2 (10:34→22:04)
[2022-07-23] MEDS: diazePAM 5 MG TABLET GT SCH ×2 (10:34→22:04)
[2022-07-23] MEDS: AMINO ACIDS/PROTEIN HYDROLYS 30 ML LIQUID.PKT GT SCH (10:35)
[2022-07-23] MEDS: AMOX TR/POTASSIUM CLAVULANATE 250 MG/5 ML BOTTLE GT SCH ×2 (10:35→17:47)
[2022-07-23] MEDS ORDERED: FUROSEMIDE 40 MG/4 ML INJECTABLE VIAL IVPUSH ONE (14:15)
[2022-07-24] MEDS: HEPARIN NA (PORCINE) 5,000 UNITS/ML 1ML VIAL SQ SCH ×3 (06:38→22:47)
[2022-07-24] MEDS: BACLOFEN 10 MG TABLET (FP) GT SCH ×3 (06:38→22:46)
[2022-07-24] MEDS: diazePAM 5 MG TABLET GT SCH ×2 (09:12→22:45)
[2022-07-24] MEDS: levETIRAcetam 500 MG TABLET (FP) PO SCH ×2 (09:12→22:46)
[2022-07-24] MEDS: AMINO ACIDS/PROTEIN HYDROLYS 30 ML LIQUID.PKT GT SCH (09:13)
[2022-07-24] MEDS: AMOX TR/POTASSIUM CLAVULANATE 250 MG/5 ML BOTTLE GT SCH ×2 (09:13→16:37)
[2022-07-24 09:58] LABS: BASO % 1.1 % (0-2.0); EOS % 2.3 % (0-4.5); HEMATOCRIT 29.1 % (32.4-45.2); HEMOGLOBIN 10.2 GM/dL (10.7-15.3); LYMPH % 26.2 % (8-40); MCH 31.5 pg (25.7-33.7); MCHC 35.1 g/dl (32.0-36.0); MEAN CELL VOLUME 89.7 fl (80-96); MEAN PLT VOLUME 8.5 fl (7.5-11.1); MONO % 10.6 % (3.8-10.2); NEUT % 59.8 % (42.8-82.8); PLATELET COUNT 347 10^3/uL (134-434); RBC 3.25 M/mm3 (3.60-5.2); RDW 14.2 % (11.6-15.6); WHITE BLOOD COUNT 5.8 K/mm3 (4.0-10.0)
[2022-07-24 10:33] LABS: ALBUMIN 2.7 g/dl (3.4-5.0); CALCIUM 8.8 mg/dL (8.5-10.1)
[2022-07-24 10:35] LABS: BLOOD UREA NITROGEN 26.6 mg/dL (7-18); MAGNESIUM 2.4 mg/dL (1.8-2.4)
[2022-07-24 10:37] LABS: CREATININE 0.7 mg/dL (0.55-1.3)
[2022-07-24 10:39] LABS: BILIRUBIN,TOTAL 0.1 mg/dL (0.2-1); TOT PROT 6.4 g/dl (6.4-8.2)
[2022-07-24] MEDS: SCOPOLAMINE HYDROBROMIDE 1 PATCH PATCH.TD72 TD SCH (12:45)
[2022-07-25] MEDS: HEPARIN NA (PORCINE) 5,000 UNITS/ML 1ML VIAL SQ SCH ×3 (06:50→21:48)
[2022-07-25] MEDS: BACLOFEN 10 MG TABLET (FP) GT SCH ×3 (06:53→21:48)
[2022-07-25 08:58] LABS: BASO % 0.8 % (0-2.0); EOS % 1.9 % (0-4.5); HEMOGLOBIN 10.2 GM/dL (10.7-15.3); LYMPH % 23.1 % (8-40); MCH 30.5 pg (25.7-33.7); MCHC 33.9 g/dl (32.0-36.0); MEAN PLT VOLUME 8.8 fl (7.5-11.1); MONO % 7.8 % (3.8-10.2); NEUT % 66.4 % (42.8-82.8); PLATELET COUNT 446 10^3/uL (134-434); RBC 3.33 M/mm3 (3.60-5.2); RDW 14.5 % (11.6-15.6); WHITE BLOOD COUNT 7.4 K/mm3 (4.0-10.0)
[2022-07-25 09:56] LABS: CALCIUM 8.7 mg/dL (8.5-10.1)
[2022-07-25 09:57] LABS: ALBUMIN 2.8 g/dl (3.4-5.0); BLOOD UREA NITROGEN 24.2 mg/dL (7-18)
[2022-07-25 10:00] LABS: CREATININE 0.6 mg/dL (0.55-1.3)
[2022-07-25 10:01] LABS: TOT PROT 6.6 g/dl (6.4-8.2)
[2022-07-25 10:02] LABS: BILIRUBIN,TOTAL 0.2 mg/dL (0.2-1)
[2022-07-25 10:03] LABS: MAGNESIUM 2.4 mg/dL (1.8-2.4)
[2022-07-25 10:28] VITALS: RESP 18
[2022-07-25] MEDS: levETIRAcetam 500 MG TABLET (FP) PO SCH ×2 (10:34→21:48)
[2022-07-25] MEDS: diazePAM 5 MG TABLET GT SCH ×2 (10:34→21:48)
[2022-07-25] MEDS: AMINO ACIDS/PROTEIN HYDROLYS 30 ML LIQUID.PKT GT SCH (10:35)
[2022-07-25] MEDS: AMOX TR/POTASSIUM CLAVULANATE 250 MG/5 ML BOTTLE GT SCH ×2 (10:35→19:00)
[2022-07-26] MEDS: HEPARIN NA (PORCINE) 5,000 UNITS/ML 1ML VIAL SQ SCH (06:41)
[2022-07-26] MEDS: BACLOFEN 10 MG TABLET (FP) GT SCH (06:42)
[2022-07-26 06:50] VITALS: TEMP 99.9
[2022-07-26 09:26] VITALS: BP 108/59; PULSE 83
[2022-07-26] MEDS: AMOX TR/POTASSIUM CLAVULANATE 250 MG/5 ML BOTTLE GT SCH (10:17)
[2022-07-26] MEDS: levETIRAcetam 500 MG TABLET (FP) PO SCH (10:18)
[2022-07-26] MEDS: diazePAM 5 MG TABLET GT SCH (10:18)
[2022-07-26] MEDS: AMINO ACIDS/PROTEIN HYDROLYS 30 ML LIQUID.PKT GT SCH (10:18)
== END 2022-07-26 13:05 | disposition home or self-care (01) | DRG 720 ==
LOC: JER 15:11 → JERBED 20:12 → J8W 07-16 00:34
PROVIDERS: ADMIT Internal Medicine; ATTEND Nurse Practitioner Family
DX: A41.9 Sepsis, unspecified organism (principal); G40.909 Epilepsy, unspecified, not intractable, without status epilepticus; G80.0 Spastic quadriplegic cerebral palsy; M41.9 Scoliosis, unspecified; H50.10 Unspecified exotropia; K59.09 Other constipation; Z93.1 Gastrostomy status; E83.52 Hypercalcemia; N17.9 Acute kidney failure, unspecified; E86.0 Dehydration; F73 Profound intellectual disabilities; R79.89 Other specified abnormal findings of blood chemistry; D69.6 Thrombocytopenia, unspecified; J18.9 Pneumonia, unspecified organism; R53.2 Functional quadriplegia; R62.50 Unspecified lack of expected normal physiological development in childhood; K21.9 Gastro-esophageal reflux disease without esophagitis; Z74.01 Bed confinement status; E87.0 Hyperosmolality and hypernatremia; R68.0 Hypothermia, not associated with low environmental temperature; J98.11 Atelectasis; R09.02 Hypoxemia
CPT/HCPCS: 0241U-QW; 36415; 71045-TC-FY; 71250-TC; 74018-TC-FY; 76700-TC; 80053; 80177; 81003; 82272; 82962; 83540; 83550; 83735; 84100; 85025; 87040; 87086; 93005; 93010; 94761; 99285-25; C9803-CS; J0475; J1644; U0003; U0005

== ENCOUNTER 2022-12-09 09:26 | Inpatient (IN) | payer OTHER ==
[2022-12-09 09:36] VITALS: BMI 27.3
[2022-12-09] MEDS ORDERED: ONDANSETRON 4 MG/2 ML VIAL IVPUSH ONE (09:55)
[2022-12-09] MEDS ORDERED: SODIUM CHLORIDE 0.9% 500 ML INFUS.BAG IV ONE (09:55)
[2022-12-09] MEDS ORDERED: ONDANSETRON 4 MG/2 ML VIAL ONE (10:12)
[2022-12-09 11:35] LABS: BASO % 0.4 % (0-2.0); EOS % 2.4 % (0-4.5); HEMATOCRIT 42.1 % (32.4-45.2); HEMOGLOBIN 14.3 GM/dL (10.7-15.3); LYMPH % 16.9 % (8-40); MCH 30.3 pg (25.7-33.7); MEAN CELL VOLUME 89.2 fl (80-96); MEAN PLT VOLUME 9.4 fl (7.5-11.1); MONO % 6.6 % (3.8-10.2); NEUT % 73.7 % (42.8-82.8); PLATELET COUNT 210 10^3/uL (134-434); RBC 4.72 M/mm3 (3.60-5.2); RDW 13.7 % (11.6-15.6); WHITE BLOOD COUNT 6.1 K/mm3 (4.0-10.0)
[2022-12-09 12:06] LABS: ALBUMIN 3.2 g/dl (3.4-5.0); BLOOD UREA NITROGEN 22.8 mg/dL (7-18); CALCIUM 10.5 mg/dL (8.5-10.1)
[2022-12-09 12:09] LABS: CREATININE 0.6 mg/dL (0.55-1.3)
[2022-12-09 12:10] LABS: BILIRUBIN,TOTAL 0.2 mg/dL (0.2-1)
[2022-12-09 12:11] LABS: TOT PROT 7.5 g/dl (6.4-8.2)
[2022-12-09 13:45] LABS: PH,URINE 7.5 (5.0-8.0); URINE APPEARANCE CLEAR; URINE BILIRUBIN NEGATIVE (NEGATIVE); URINE COLOR YELLOW; URINE GLUCOSE (UA) NEGATIVE (NEGATIVE); URINE KETONE NEGATIVE (NEGATIVE); URINE LEUK ESTERASE NEGATIVE (NEGATIVE); URINE NITRITE NEGATIVE (NEGATIVE); URINE PROTEIN NEGATIVE (NEGATIVE); URINE UROBILINOGEN 0.2 mg/dL (0.2-1.0)
[2022-12-09] MEDS ORDERED: ONDANSETRON 4 MG/2 ML VIAL IVPUSH PRN (16:03)
[2022-12-09] MEDS: DEXTROSE 5%-NORMAL SALINE 1,000 ML IV SCH (16:12)
[2022-12-10] MEDS: POLYETHYLENE GLYCOL (HEALTHYLAX) 3350 17 GM PACKET GT SCH ×3 (00:14→21:56)
[2022-12-10] MEDS ORDERED: levETIRAcetam 500 MG/5 ML INJECTION VIAL IVPB ONE (00:17)
[2022-12-10] MEDS: levETIRAcetam 500 MG/5 ML INJECTION VIAL IVPB SCH ×3 (00:40→21:54)
[2022-12-10] MEDS: DEXTROSE 5%-NORMAL SALINE 1,000 ML IV SCH (01:18)
[2022-12-10 08:51] LABS: INR 1.03 (0.83-1.09); PROTHROMBIN TIME (PATIENT) 11.9 SEC (9.7-13.0)
[2022-12-10 08:52] LABS: BASO % 0.2 % (0-2.0); HEMOGLOBIN 13.4 GM/dL (10.7-15.3); MCH 30.5 pg (25.7-33.7); MCHC 34.4 g/dl (32.0-36.0); MEAN CELL VOLUME 88.4 fl (80-96); MEAN PLT VOLUME 9.8 fl (7.5-11.1); MONO % 6.9 % (3.8-10.2); NEUT % 82.9 % (42.8-82.8); PLATELET COUNT 216 10^3/uL (134-434); RBC 4.41 M/mm3 (3.60-5.2); RDW 13.2 % (11.6-15.6); WHITE BLOOD COUNT 7.2 K/mm3 (4.0-10.0)
[2022-12-10 08:54] LABS: ACTIVATED PTT 30.9 SECONDS (25.2-36.5)
[2022-12-10 09:27] LABS: ALBUMIN 3.1 g/dl (3.4-5.0); BLOOD UREA NITROGEN 18.9 mg/dL (7-18); MAGNESIUM 2.1 mg/dL (1.8-2.4)
[2022-12-10 09:29] LABS: CREATININE 0.7 mg/dL (0.55-1.3)
[2022-12-10 09:30] LABS: PHOSPHOROUS 2.1 mg/dL (2.5-4.9)
[2022-12-10 09:31] LABS: BILIRUBIN,TOTAL 0.2 mg/dL (0.2-1); TOT PROT 6.9 g/dl (6.4-8.2)
[2022-12-10] MEDS ORDERED: DEXTROSE 5%-0.45% SALINE 1,000 ML IV SCH ×2 (11:45→12:00)
[2022-12-10] MEDS ORDERED: PIPERACILLIN/TAZOB 3.375 GM 3.375 GM in DEXTROSE 5%-WATER - 50 ML IVPB SCH ×2 (12:45→13:00)
[2022-12-10] MEDS ORDERED: POTASSIUM PHOSPHATE 30 MM in DEXTROSE 5%-WATER - 500 ML IVPB ONE (13:00)
[2022-12-10] MEDS ORDERED: DEXTROSE 5%-WATER - 1,000 ML IV SCH (16:30)
[2022-12-10] MEDS: SENNOSIDES 8.8 MG/5 ML SYRUP GT SCH (21:55)
[2022-12-11 07:27] LABS: BASO % 0.4 % (0-2.0); EOS % 0.4 % (0-4.5); HEMATOCRIT 36.4 % (32.4-45.2); HEMOGLOBIN 12.8 GM/dL (10.7-15.3); LYMPH % 13.4 % (8-40); MCHC 35.1 g/dl (32.0-36.0); MEAN CELL VOLUME 88.3 fl (80-96); MEAN PLT VOLUME 9.1 fl (7.5-11.1); MONO % 5.3 % (3.8-10.2); NEUT % 80.5 % (42.8-82.8); PLATELET COUNT 201 10^3/uL (134-434); RBC 4.13 M/mm3 (3.60-5.2); RDW 13.4 % (11.6-15.6); WHITE BLOOD COUNT 6.7 K/mm3 (4.0-10.0)
[2022-12-11 07:46] LABS: ALBUMIN 2.8 g/dl (3.4-5.0); CALCIUM 8.3 mg/dL (8.5-10.1)
[2022-12-11 07:49] LABS: CREATININE 0.6 mg/dL (0.55-1.3)
[2022-12-11 07:50] LABS: BILIRUBIN,TOTAL 0.3 mg/dL (0.2-1); PHOSPHOROUS 2.5 mg/dL (2.5-4.9)
[2022-12-11 07:51] LABS: TOT PROT 6.4 g/dl (6.4-8.2)
[2022-12-11] MEDS: POLYETHYLENE GLYCOL (HEALTHYLAX) 3350 17 GM PACKET GT SCH ×2 (09:02→22:10)
[2022-12-11] MEDS: levETIRAcetam 500 MG/5 ML INJECTION VIAL IVPB SCH ×2 (09:04→22:10)
[2022-12-11] MEDS ORDERED: DEXTROSE 5%-0.45% SALINE 1,000 ML IV SCH (12:00)
[2022-12-11] MEDS: SENNOSIDES 8.8 MG/5 ML SYRUP GT SCH (22:10)
[2022-12-12 09:37] LABS: BASO % 0.8 % (0-2.0); EOS % 0.7 % (0-4.5); HEMATOCRIT 38.2 % (32.4-45.2); LYMPH % 19.5 % (8-40); MCH 30.4 pg (25.7-33.7); MCHC 34.1 g/dl (32.0-36.0); MEAN CELL VOLUME 89.1 fl (80-96); MEAN PLT VOLUME 9.3 fl (7.5-11.1); MONO % 7.2 % (3.8-10.2); NEUT % 71.8 % (42.8-82.8); PLATELET COUNT 196 10^3/uL (134-434); RBC 4.29 M/mm3 (3.60-5.2); RDW 13.8 % (11.6-15.6)
[2022-12-12 09:58] LABS: CALCIUM 8.7 mg/dL (8.5-10.1)
[2022-12-12 09:59] LABS: ALBUMIN 2.8 g/dl (3.4-5.0); BLOOD UREA NITROGEN 15.4 mg/dL (7-18); MAGNESIUM 2.1 mg/dL (1.8-2.4)
[2022-12-12 10:02] LABS: BILIRUBIN,TOTAL 0.4 mg/dL (0.2-1); PHOSPHOROUS 1.9 mg/dL (2.5-4.9)
[2022-12-12 10:03] LABS: TOT PROT 6.4 g/dl (6.4-8.2)
[2022-12-12 10:04] LABS: CREATININE 0.6 mg/dL (0.55-1.3)
[2022-12-12] MEDS: POLYETHYLENE GLYCOL (HEALTHYLAX) 3350 17 GM PACKET GT SCH ×2 (11:29→21:42)
[2022-12-12] MEDS: levETIRAcetam 500 MG/5 ML INJECTION VIAL IVPB SCH ×2 (11:32→23:06)
[2022-12-12] MEDS ORDERED: ACETAMINOPHEN 1000 MG/100 ML BAG IVPB ONE (21:15)
[2022-12-12] MEDS: SENNOSIDES 8.8 MG/5 ML SYRUP GT SCH (21:42)
[2022-12-13] MEDS: POLYETHYLENE GLYCOL (HEALTHYLAX) 3350 17 GM PACKET GT SCH ×2 (09:31→22:23)
[2022-12-13] MEDS: levETIRAcetam 500 MG/5 ML INJECTION VIAL IVPB SCH (09:38)
[2022-12-13 09:43] LABS: EPI CELLS 16 /uL (0-25.1); HYALINE CASTS 1 /uL (0-3.1); PH,URINE 5.5 (5.0-8.0); URINE APPEARANCE CLEAR; URINE BACTERIA 13 /uL (0-1359); URINE BILIRUBIN NEGATIVE (NEGATIVE); URINE COLOR YELLOW; URINE GLUCOSE (UA) NEGATIVE (NEGATIVE); URINE KETONE TRACE (NEGATIVE); URINE LEUK ESTERASE TRACE (NEGATIVE); URINE NITRITE NEGATIVE (NEGATIVE); URINE PROTEIN 1+ (NEGATIVE); URINE RBC 1332 /uL (0-23.9); URINE UROBILINOGEN 0.2 mg/dL (0.2-1.0); URINE WBC 94 /uL (0-25.8)
[2022-12-13] MEDS: levETIRAcetam 500 MG TABLET (FP) PO SCH ×2 (10:28→22:24)
[2022-12-13] MEDS ORDERED: ACETAMINOPHEN 500 MG TABLET (FP) PO ONE (19:01)
[2022-12-13] MEDS: SENNOSIDES 8.8 MG/5 ML SYRUP GT SCH (22:24)
[2022-12-14] MEDS: levETIRAcetam 500 MG TABLET (FP) PO SCH (09:56)
[2022-12-14] MEDS: POLYETHYLENE GLYCOL (HEALTHYLAX) 3350 17 GM PACKET GT SCH ×3 (09:56→22:46)
[2022-12-14] MEDS ORDERED: VANCOMYCIN 1 GM in D5W (PRE-DOCKED) 1,000 MG/250 ML IVPB ONE (10:41)
[2022-12-14] MEDS ORDERED: PIPERACILLIN/TAZOB 3.375 GM 3.375 GM in DEXTROSE 5%-WATER - 50 ML IVPB SCH (10:45)
[2022-12-14] MEDS ORDERED: ACETAMINOPHEN 1000 MG/100 ML BAG IVPB PRN (10:53)
[2022-12-14] MEDS: PIPERACILLIN/TAZOB 3.375 GM 3.375 GM in DEXTROSE 5%-WATER - 50 ML IVPB SCH ×2 (12:19→17:38)
[2022-12-14] MEDS: levETIRAcetam 500 MG/5 ML INJECTION VIAL IVPB SCH ×2 (12:19→22:32)
[2022-12-14 21:24] LABS: CALCIUM 8.6 mg/dL (8.5-10.1)
[2022-12-14 21:25] LABS: BLOOD UREA NITROGEN 15.1 mg/dL (7-18)
[2022-12-14 21:28] LABS: CREATININE 0.6 mg/dL (0.55-1.3)
[2022-12-14 22:06] LABS: MAGNESIUM 2.2 mg/dL (1.8-2.4)
[2022-12-14 22:10] LABS: PHOSPHOROUS 2.3 mg/dL (2.5-4.9)
[2022-12-14] MEDS: SENNOSIDES 8.8 MG/5 ML SYRUP GT SCH (22:31)
[2022-12-15] MEDS: PIPERACILLIN/TAZOB 3.375 GM 3.375 GM in DEXTROSE 5%-WATER - 50 ML IVPB SCH (01:54)
[2022-12-15] MEDS: AMINO ACIDS/PROTEIN HYDROLYS 30 ML LIQUID.PKT PO SCH ×2 (08:31→12:51)
[2022-12-15 08:33] LABS: BASO % 0.2 % (0-2.0); EOS % 1.9 % (0-4.5); HEMATOCRIT 35.3 % (32.4-45.2); HEMOGLOBIN 12.3 GM/dL (10.7-15.3); LYMPH % 12.3 % (8-40); MCH 30.7 pg (25.7-33.7); MCHC 34.7 g/dl (32.0-36.0); MEAN CELL VOLUME 88.5 fl (80-96); MEAN PLT VOLUME 8.7 fl (7.5-11.1); NEUT % 78.6 % (42.8-82.8); PLATELET COUNT 190 10^3/uL (134-434); RBC 3.99 M/mm3 (3.60-5.2)
[2022-12-15 09:04] LABS: ALBUMIN 2.7 g/dl (3.4-5.0); PHOSPHOROUS 2.3 mg/dL (2.5-4.9)
[2022-12-15 09:05] LABS: BLOOD UREA NITROGEN 16.4 mg/dL (7-18); CREATININE 0.6 mg/dL (0.55-1.3)
[2022-12-15 09:06] LABS: BILIRUBIN,TOTAL 0.3 mg/dL (0.2-1); TOT PROT 6.5 g/dl (6.4-8.2)
[2022-12-15 09:07] LABS: CALCIUM 8.4 mg/dL (8.5-10.1)
[2022-12-15 09:08] LABS: MAGNESIUM 2.3 mg/dL (1.8-2.4)
[2022-12-15] MEDS ORDERED: VANCOMYCIN/WATER FOR INJ (PEG) 1,000 MG/200 ML BAG IVPB SCH (10:00)
[2022-12-15] MEDS ORDERED: VANCOMYCIN 1 GM in D5W (PRE-DOCKED) 1,000 MG/250 ML IVPB SCH (10:00)
[2022-12-15] MEDS ORDERED: VANCOMYCIN 1 GM/200 ML PREMIX BAG (RESTRICTED TO ID ONLY) IVPB SCH (10:00)
[2022-12-15] MEDS ORDERED: SODIUM PHOSPHATE - 30 MM in SODIUM CHLORIDE 250 ML IVPB ONE (11:30)
[2022-12-15] MEDS: MULTIVITAMINS (DAILY MVI) TABLET (FP) PO SCH (12:51)
[2022-12-15] MEDS: levETIRAcetam 500 MG/5 ML INJECTION VIAL IVPB SCH (12:53)
[2022-12-15] MEDS: POLYETHYLENE GLYCOL (HEALTHYLAX) 3350 17 GM PACKET GT SCH ×2 (12:57→22:27)
[2022-12-15] MEDS: SENNOSIDES 8.8 MG/5 ML SYRUP GT SCH (22:27)
[2022-12-15] MEDS: levETIRAcetam 500 MG/5 ML ORAL SOLUTION (UNIT-DOSE CUPS) PO SCH (22:28)
[2022-12-16 09:17] LABS: ALBUMIN 2.8 g/dl (3.4-5.0); BLOOD UREA NITROGEN 24.2 mg/dL (7-18); CALCIUM 8.5 mg/dL (8.5-10.1); MAGNESIUM 2.3 mg/dL (1.8-2.4)
[2022-12-16 09:21] LABS: CREATININE 0.5 mg/dL (0.55-1.3)
[2022-12-16 09:22] LABS: BILIRUBIN,TOTAL 0.3 mg/dL (0.2-1); TOT PROT 6.8 g/dl (6.4-8.2)
[2022-12-16] MEDS: AMINO ACIDS/PROTEIN HYDROLYS 30 ML LIQUID.PKT PO SCH (09:36)
[2022-12-16] MEDS: levETIRAcetam 500 MG/5 ML ORAL SOLUTION (UNIT-DOSE CUPS) PO SCH ×2 (09:36→21:55)
[2022-12-16] MEDS: POLYETHYLENE GLYCOL (HEALTHYLAX) 3350 17 GM PACKET GT SCH ×2 (09:36→21:55)
[2022-12-16] MEDS: MULTIVITAMINS (DAILY MVI) TABLET (FP) PO SCH (09:38)
[2022-12-16] MEDS: SODIUM CHLORIDE 0.45% 1,000 ML IV SCH (17:29)
[2022-12-16] MEDS: SENNOSIDES 8.8 MG/5 ML SYRUP GT SCH (22:12)
[2022-12-17 09:50] LABS: ALBUMIN 2.4 g/dl (3.4-5.0); BLOOD UREA NITROGEN 29.5 mg/dL (7-18); CALCIUM 8.2 mg/dL (8.5-10.1)
[2022-12-17 09:51] LABS: MAGNESIUM 2.1 mg/dL (1.8-2.4)
[2022-12-17 09:53] LABS: CREATININE 0.4 mg/dL (0.55-1.3); PHOSPHOROUS 2.1 mg/dL (2.5-4.9)
[2022-12-17 09:55] LABS: BILIRUBIN,TOTAL 0.2 mg/dL (0.2-1); TOT PROT 6.1 g/dl (6.4-8.2)
[2022-12-17] MEDS: MULTIVITAMINS (DAILY MVI) TABLET (FP) PO SCH (10:45)
[2022-12-17] MEDS: levETIRAcetam 500 MG/5 ML ORAL SOLUTION (UNIT-DOSE CUPS) PO SCH ×2 (10:45→23:28)
[2022-12-17] MEDS: POLYETHYLENE GLYCOL (HEALTHYLAX) 3350 17 GM PACKET GT SCH ×2 (10:46→23:28)
[2022-12-17] MEDS: AMINO ACIDS/PROTEIN HYDROLYS 30 ML LIQUID.PKT PO SCH (10:46)
[2022-12-17] MEDS: SODIUM CHLORIDE 0.45% 1,000 ML IV SCH ×2 (12:32→16:33)
[2022-12-17 13:10] LABS: BASO % 0.5 % (0-2.0); HEMATOCRIT 34.6 % (32.4-45.2); HEMOGLOBIN 11.6 GM/dL (10.7-15.3); LYMPH % 30.4 % (8-40); MCH 30.1 pg (25.7-33.7); MCHC 33.6 g/dl (32.0-36.0); MEAN CELL VOLUME 89.7 fl (80-96); MEAN PLT VOLUME 8.6 fl (7.5-11.1); MONO % 8.2 % (3.8-10.2); NEUT % 58.9 % (42.8-82.8); PLATELET COUNT 295 10^3/uL (134-434); RBC 3.86 M/mm3 (3.60-5.2); RDW 13.8 % (11.6-15.6); WHITE BLOOD COUNT 4.8 K/mm3 (4.0-10.0)
[2022-12-17] MEDS: SENNOSIDES 8.8 MG/5 ML SYRUP GT SCH (23:28)
[2022-12-18 09:43] LABS: BASO % 0.6 % (0-2.0); EOS % 2.6 % (0-4.5); LYMPH % 26.7 % (8-40); MCH 30.5 pg (25.7-33.7); MCHC 34.3 g/dl (32.0-36.0); MEAN CELL VOLUME 88.9 fl (80-96); MEAN PLT VOLUME 8.5 fl (7.5-11.1); MONO % 6.2 % (3.8-10.2); NEUT % 63.9 % (42.8-82.8); PLATELET COUNT 325 10^3/uL (134-434); RDW 13.6 % (11.6-15.6); WHITE BLOOD COUNT 5.4 K/mm3 (4.0-10.0)
[2022-12-18 10:13] LABS: BLOOD UREA NITROGEN 24.6 mg/dL (7-18); CALCIUM 8.6 mg/dL (8.5-10.1)
[2022-12-18 10:14] LABS: ALBUMIN 2.7 g/dl (3.4-5.0)
[2022-12-18 10:17] LABS: CREATININE 0.4 mg/dL (0.55-1.3)
[2022-12-18 10:18] LABS: BILIRUBIN,TOTAL 1.2 mg/dL (0.2-1); TOT PROT 6.4 g/dl (6.4-8.2)
[2022-12-18] MEDS: POLYETHYLENE GLYCOL (HEALTHYLAX) 3350 17 GM PACKET GT SCH ×2 (11:50→21:05)
[2022-12-18] MEDS: AMINO ACIDS/PROTEIN HYDROLYS 30 ML LIQUID.PKT PO SCH (11:50)
[2022-12-18] MEDS: MULTIVITAMINS (DAILY MVI) TABLET (FP) PO SCH (11:50)
[2022-12-18] MEDS: levETIRAcetam 500 MG/5 ML ORAL SOLUTION (UNIT-DOSE CUPS) PO SCH ×2 (11:50→21:06)
[2022-12-18] MEDS: SODIUM CHLORIDE 0.45% 1,000 ML IV SCH (14:21)
[2022-12-18] MEDS: SENNOSIDES 8.8 MG/5 ML SYRUP GT SCH (21:05)
[2022-12-19] MEDS: SODIUM CHLORIDE 0.45% 1,000 ML IV SCH ×2 (06:54→10:41)
[2022-12-19] MEDS: AMINO ACIDS/PROTEIN HYDROLYS 30 ML LIQUID.PKT PO SCH (09:46)
[2022-12-19] MEDS: POLYETHYLENE GLYCOL (HEALTHYLAX) 3350 17 GM PACKET GT SCH ×2 (10:39→21:22)
[2022-12-19] MEDS: MULTIVITAMINS (DAILY MVI) TABLET (FP) PO SCH (10:40)
[2022-12-19] MEDS: levETIRAcetam 500 MG/5 ML ORAL SOLUTION (UNIT-DOSE CUPS) PO SCH ×2 (10:40→21:22)
[2022-12-19 11:34] LABS: BASO % 0.9 % (0-2.0); EOS % 2.7 % (0-4.5); HEMATOCRIT 35.7 % (32.4-45.2); HEMOGLOBIN 12.3 GM/dL (10.7-15.3); LYMPH % 26.6 % (8-40); MCH 30.5 pg (25.7-33.7); MCHC 34.5 g/dl (32.0-36.0); MEAN CELL VOLUME 88.3 fl (80-96); MEAN PLT VOLUME 8.2 fl (7.5-11.1); MONO % 6.9 % (3.8-10.2); NEUT % 62.9 % (42.8-82.8); PLATELET COUNT 376 10^3/uL (134-434); RBC 4.04 M/mm3 (3.60-5.2); WHITE BLOOD COUNT 4.7 K/mm3 (4.0-10.0)
[2022-12-19 11:56] LABS: CALCIUM 8.8 mg/dL (8.5-10.1)
[2022-12-19 11:57] LABS: ALBUMIN 2.9 g/dl (3.4-5.0); MAGNESIUM 2.1 mg/dL (1.8-2.4)
[2022-12-19 12:00] LABS: CREATININE 0.5 mg/dL (0.55-1.3); PHOSPHOROUS 2.4 mg/dL (2.5-4.9)
[2022-12-19 12:01] LABS: TOT PROT 6.9 g/dl (6.4-8.2)
[2022-12-19 12:02] LABS: BILIRUBIN,TOTAL 0.2 mg/dL (0.2-1)
[2022-12-19] MEDS: SENNOSIDES 8.8 MG/5 ML SYRUP GT SCH (21:23)
[2022-12-20] MEDS: AMINO ACIDS/PROTEIN HYDROLYS 30 ML LIQUID.PKT PO SCH (08:01)
[2022-12-20 08:46] LABS: CALCIUM 9.2 mg/dL (8.5-10.1)
[2022-12-20 08:50] LABS: CREATININE 0.4 mg/dL (0.55-1.3)
[2022-12-20] MEDS: POLYETHYLENE GLYCOL (HEALTHYLAX) 3350 17 GM PACKET GT SCH ×2 (09:38→21:35)
[2022-12-20] MEDS: levETIRAcetam 500 MG/5 ML ORAL SOLUTION (UNIT-DOSE CUPS) PO SCH ×2 (09:38→21:35)
[2022-12-20] MEDS: MULTIVITAMINS (DAILY MVI) TABLET (FP) PO SCH (09:38)
[2022-12-20] MEDS: ACETAMINOPHEN 650 MG/20.3 ML ORAL SOLUTION (CUPS) GT PRN (15:57)
[2022-12-20] MEDS: SENNOSIDES 8.8 MG/5 ML SYRUP GT SCH (21:44)
[2022-12-21 04:30] VITALS: RESP 18
[2022-12-21 10:50] LABS: BASO % 0.7 % (0-2.0); EOS % 1.3 % (0-4.5); HEMATOCRIT 36.3 % (32.4-45.2); HEMOGLOBIN 12.2 GM/dL (10.7-15.3); MCH 29.7 pg (25.7-33.7); MCHC 33.5 g/dl (32.0-36.0); MEAN CELL VOLUME 88.6 fl (80-96); MEAN PLT VOLUME 8.9 fl (7.5-11.1); MONO % 7.3 % (3.8-10.2); NEUT % 68.7 % (42.8-82.8); PLATELET COUNT 504 10^3/uL (134-434); RDW 13.7 % (11.6-15.6); WHITE BLOOD COUNT 8.2 K/mm3 (4.0-10.0)
[2022-12-21] MEDS: MULTIVITAMINS (DAILY MVI) TABLET (FP) PO SCH (10:52)
[2022-12-21] MEDS: levETIRAcetam 500 MG/5 ML ORAL SOLUTION (UNIT-DOSE CUPS) PO SCH ×2 (10:52→21:47)
[2022-12-21] MEDS: AMINO ACIDS/PROTEIN HYDROLYS 30 ML LIQUID.PKT PO SCH (10:52)
[2022-12-21] MEDS: POLYETHYLENE GLYCOL (HEALTHYLAX) 3350 17 GM PACKET GT SCH ×2 (10:52→21:47)
[2022-12-21] MEDS: SENNOSIDES 8.8 MG/5 ML SYRUP GT SCH (21:46)
[2022-12-22] MEDS: ACETAMINOPHEN 650 MG/20.3 ML ORAL SOLUTION (CUPS) GT PRN (00:35)
[2022-12-22] MEDS: AMINO ACIDS/PROTEIN HYDROLYS 30 ML LIQUID.PKT PO SCH (08:25)
[2022-12-22] MEDS: levETIRAcetam 500 MG/5 ML ORAL SOLUTION (UNIT-DOSE CUPS) PO SCH (09:31)
[2022-12-22] MEDS: MULTIVITAMINS (DAILY MVI) TABLET (FP) PO SCH (09:31)
[2022-12-22] MEDS: POLYETHYLENE GLYCOL (HEALTHYLAX) 3350 17 GM PACKET GT SCH (09:31)
[2022-12-22 09:55] VITALS: BP 110/71; PULSE 104; TEMP 99.2
== END 2022-12-22 14:10 | DRG 247 ==
LOC: JER 09:26 → JERBED 17:07 → J7W 12-10 01:01 → J5S 12-16 12:26
PROVIDERS: ADMIT Internal Medicine
PROC: 0D20XUZ Change Feeding Device in Upper Intestinal Tract, External Approach (ICD-10-PCS; principal; 2022-12-15)
DX: K56.7 Ileus, unspecified (principal); U07.1 COVID-19; E87.0 Hyperosmolality and hypernatremia; M62.82 Rhabdomyolysis; R56.9 Unspecified convulsions; R78.81 Bacteremia; G80.9 Cerebral palsy, unspecified; K52.9 Noninfective gastroenteritis and colitis, unspecified; K59.00 Constipation, unspecified; K56.609 Unspecified intestinal obstruction, unspecified as to partial versus complete obstruction; K94.23 Gastrostomy malfunction; R11.10 Vomiting, unspecified; Y83.9 Surgical procedure, unspecified as the cause of abnormal reaction of the patient, or of later complication, without mention of misadventure at the time of the procedure; F73 Profound intellectual disabilities; E87.6 Hypokalemia; R74.01 Elevation of levels of liver transaminase levels; K21.9 Gastro-esophageal reflux disease without esophagitis
CPT/HCPCS: 0241U-QW; 36415; 49450; 70450-TC; 71045-TC-FY; 74176-TC; 74190-TC-FY; 76705-TC; 80048; 80053; 80177; 81003; 82550; 82553; 82962; 82977; 83605; 83690; 83735; 84100; 84443; 84484; 85025; 85610; 85730; 87040; 87086; 93005; 93010; 99285-25; C9803-CS; U0003; U0005

== ENCOUNTER 2023-02-05 06:41 | Inpatient (IN) | payer OTHER ==
[2023-02-05] MEDS ORDERED: LIDOCAINE VISCOUS 2% ORAL/TOP 15 ML UNIT-DOSE CUP ONE (07:02)
[2023-02-05] MEDS ORDERED: ONDANSETRON 4 MG/2 ML VIAL IVPUSH ONE (08:01)
[2023-02-05] MEDS ORDERED: ONDANSETRON 4 MG/2 ML VIAL ONE (08:18)
[2023-02-05] MEDS ORDERED: SODIUM CHLORIDE 0.9% 500 ML INFUS.BAG IV ONE ×3 (08:49→11:02)
[2023-02-05 09:04] LABS: VENOUS BASE EXCESS 9.2 mmol/L (-2-2); VENOUS O2 SATURATION 49.9 % (70-80); VENOUS PH 7.346 (7.310-7.410)
[2023-02-05 09:05] LABS: BASO % 0.3 % (0-2.0); EOS % 1.2 % (0-4.5); HEMATOCRIT 44.2 % (32.4-45.2); HEMOGLOBIN 15.4 GM/dL (10.7-15.3); MCHC 34.9 g/dl (32.0-36.0); MEAN CELL VOLUME 88.9 fl (80-96); MONO % 4.6 % (3.8-10.2); NEUT % 78.9 % (42.8-82.8); PLATELET COUNT 219 10^3/uL (134-434); RBC 4.98 M/mm3 (3.60-5.2); RDW 14.8 % (11.6-15.6); WHITE BLOOD COUNT 6.3 K/mm3 (4.0-10.0)
[2023-02-05 09:12] LABS: INR 1.05 (0.83-1.09); PROTHROMBIN TIME (PATIENT) 12.2 SEC (9.7-13.0)
[2023-02-05 09:15] LABS: ACTIVATED PTT 51.9 SECONDS (25.2-36.5)
[2023-02-05 10:44] LABS: VENOUS PCO2 71.9 mmHg (38-52)
[2023-02-05] MEDS ORDERED: NOREPINEPHRINE BITARTRATE/D5W 8 MG/250 ML BAG IVPB SCH (11:15)
[2023-02-05] MEDS ORDERED: VANCOMYCIN 1 GM in D5W (PRE-DOCKED) 1,000 MG/250 ML (RESTRICTED TO ID ONLY IVPB ONE (11:18)
[2023-02-05] MEDS ORDERED: PIPERACILLIN/TAZOB 4.5 GM 4.5 GM in DEXTROSE 5%-WATER 100 ML IVPB ONE (11:19)
[2023-02-05 11:26] LABS: PH,URINE 8.5 (5.0-8.0); URINE APPEARANCE CLEAR; URINE BILIRUBIN NEGATIVE (NEGATIVE); URINE COLOR YELLOW; URINE GLUCOSE (UA) NEGATIVE (NEGATIVE); URINE KETONE NEGATIVE (NEGATIVE); URINE LEUK ESTERASE NEGATIVE (NEGATIVE); URINE NITRITE NEGATIVE (NEGATIVE); URINE PROTEIN NEGATIVE (NEGATIVE); URINE UROBILINOGEN 0.2 mg/dL (0.2-1.0)
[2023-02-05 11:27] LABS: CALCIUM 10.1 mg/dL (8.5-10.1)
[2023-02-05 11:28] LABS: ALBUMIN 3.8 g/dl (3.4-5.0); BLOOD UREA NITROGEN 16.7 mg/dL (7-18)
[2023-02-05] MEDS ORDERED: PIPERACILLIN/TAZOB 4.5 GM 4.5 GM/100 ML BAG IVPB ONE (11:28)
[2023-02-05] MEDS ORDERED: VANCOMYCIN/WATER FOR INJ (PEG) 1,000 MG/200 ML BAG IVPB ONE ×2 (11:28→11:29)
[2023-02-05 11:31] LABS: CREATININE 0.7 mg/dL (0.55-1.3)
[2023-02-05 11:33] LABS: BILIRUBIN,TOTAL 0.4 mg/dL (0.2-1); TOT PROT 8.6 g/dl (6.4-8.2)
[2023-02-05] MEDS ORDERED: ONDANSETRON 4 MG/2 ML VIAL IVPUSH PRN (14:28)
[2023-02-05] MEDS ORDERED: SODIUM CHLORIDE 1,000 ML IV SCH (14:30)
[2023-02-05 16:57] LABS: ARTERIAL BLD GAS O2 SATURATION 93.5 % (95-98); ARTERIAL BLOOD GAS BASE EXCESS 2.2 mmol/L (-2-2); ARTERIAL BLOOD GAS PO2 70.9 mmHg (80-100)
[2023-02-05 17:03] LABS: ALLENS TEST POSITIVE
[2023-02-05 20:07] LABS: EOS % 0.1 % (0-4.5); HEMATOCRIT 38.5 % (32.4-45.2); HEMOGLOBIN 12.8 GM/dL (10.7-15.3); LYMPH % 2.3 % (8-40); MCH 29.7 pg (25.7-33.7); MCHC 33.3 g/dl (32.0-36.0); MEAN CELL VOLUME 89.4 fl (80-96); MEAN PLT VOLUME 9.3 fl (7.5-11.1); MONO % 5.1 % (3.8-10.2); NEUT % 92.5 % (42.8-82.8); PLATELET COUNT 209 10^3/uL (134-434); RDW 15.4 % (11.6-15.6)
[2023-02-05] MEDS ORDERED: CHLORHEXIDINE GLUCONATE 4% CLEANSER FOR DECOLONIZATION TP SCH (22:00)
[2023-02-05] MEDS: POLYETHYLENE GLYCOL (HEALTHYLAX) 3350 17 GM PACKET PEG SCH (22:53)
[2023-02-05] MEDS: levETIRAcetam 500 MG/5 ML INJECTION VIAL IVPB SCH (22:53)
[2023-02-05] MEDS: MUPIROCIN 2% TOPICAL OINTMENT FOR DECOLONIZATION NS SCH (22:54)
[2023-02-06] MEDS: POLYETHYLENE GLYCOL (HEALTHYLAX) 3350 17 GM PACKET PEG SCH ×3 (05:56→21:58)
[2023-02-06 07:55] LABS: BASO % 0.3 % (0-2.0); EOS % 0.2 % (0-4.5); HEMOGLOBIN 11.6 GM/dL (10.7-15.3); LYMPH % 11.7 % (8-40); MCH 30.7 pg (25.7-33.7); MCHC 34.2 g/dl (32.0-36.0); MEAN CELL VOLUME 89.7 fl (80-96); MONO % 8.2 % (3.8-10.2); NEUT % 79.6 % (42.8-82.8); PLATELET COUNT 163 10^3/uL (134-434); RBC 3.79 M/mm3 (3.60-5.2); RDW 14.5 % (11.6-15.6); WHITE BLOOD COUNT 8.2 K/mm3 (4.0-10.0)
[2023-02-06 08:13] LABS: POTASSIUM 3.5 mmol/L (3.5-5.1)
[2023-02-06 08:16] LABS: BLOOD UREA NITROGEN 13.1 mg/dL (7-18)
[2023-02-06 08:19] LABS: CREATININE 0.4 mg/dL (0.55-1.3); INR 1.16 (0.83-1.09); PROTHROMBIN TIME (PATIENT) 13.4 SEC (9.7-13.0)
[2023-02-06 08:23] LABS: BILIRUBIN,TOTAL 0.3 mg/dL (0.2-1); CALCIUM 8.3 mg/dL (8.5-10.1); TOT PROT 6.2 g/dl (6.4-8.2)
[2023-02-06] MEDS: MUPIROCIN 2% TOPICAL OINTMENT FOR DECOLONIZATION NS SCH ×2 (09:48→21:59)
[2023-02-06] MEDS: levETIRAcetam 500 MG/5 ML INJECTION VIAL IVPB SCH ×2 (09:48→21:58)
[2023-02-06] MEDS ORDERED: PANTOPRAZOLE SODIUM 40 MG VIAL IVPUSH SCH (10:00)
[2023-02-06] MEDS ORDERED: PIPERACILLIN/TAZOB 3.375 GM 3.375 GM in DEXTROSE 5%-WATER - 50 ML IVPB SCH (10:00)
[2023-02-06] MEDS ORDERED: AMINO ACIDS 4.25%/D5W 1,000 ML IV SCH (10:15)
[2023-02-06] MEDS ORDERED: HEPARIN NA (PORCINE) 5,000 UNITS/ML 1ML VIAL SQ SCH (10:45)
[2023-02-06] MEDS ORDERED: VANCOMYCIN/WATER FOR INJ (PEG) 750 MG/150 ML BAG IVPB SCH ×3 (12:00→12:45)
[2023-02-06] MEDS ORDERED: ONDANSETRON 4 MG/2 ML VIAL IVPUSH PRN (12:14)
[2023-02-06] MEDS: PIPERACILLIN/TAZOB 3.375 GM 3.375 GM in DEXTROSE 5%-WATER - 50 ML IVPB SCH (17:49)
[2023-02-06] MEDS: HEPARIN NA (PORCINE) 5,000 UNITS/ML 1ML VIAL SQ SCH (21:58)
[2023-02-06] MEDS: CHLORHEXIDINE GLUCONATE 4% CLEANSER FOR DECOLONIZATION TP SCH (21:59)
[2023-02-06] MEDS ORDERED: FAT EMULSION/OLIVE/SOY/PHOSPHO 250 ML IV SCH (22:00)
[2023-02-06] MEDS ORDERED: FAT EMULSION/OLIVE/SOY (CLINOLIPID) 250 ML EMULSION IV SCH (22:00)
[2023-02-06] MEDS: FAT EMULSION/OLIVE/SOY/PHOSPHO 250 ML IV SCH (22:04)
[2023-02-07] MEDS: PIPERACILLIN/TAZOB 3.375 GM 3.375 GM in DEXTROSE 5%-WATER - 50 ML IVPB SCH (02:36)
[2023-02-07] MEDS: POLYETHYLENE GLYCOL (HEALTHYLAX) 3350 17 GM PACKET PEG SCH ×3 (07:11→21:21)
[2023-02-07 07:40] LABS: HEMATOCRIT 33.4 % (32.4-45.2); HEMOGLOBIN 11.5 GM/dL (10.7-15.3); MCH 30.6 pg (25.7-33.7); MCHC 34.5 g/dl (32.0-36.0); MEAN CELL VOLUME 88.8 fl (80-96); MEAN PLT VOLUME 9.9 fl (7.5-11.1); PLATELET COUNT 153 10^3/uL (134-434); RBC 3.76 M/mm3 (3.60-5.2); RDW 14.9 % (11.6-15.6); WHITE BLOOD COUNT 5.8 K/mm3 (4.0-10.0)
[2023-02-07 07:58] LABS: CHLORIDE 109 mmol/L (98-107); POTASSIUM 3.3 mmol/L (3.5-5.1); SODIUM 141 mmol/L (136-145)
[2023-02-07 07:59] LABS: ANION GAP 6 MMOL/L (8-16); CO2 26 mmol/L (21-32)
[2023-02-07 08:00] LABS: GLUCOSE,RANDOM 85 mg/dL (74-106); MAGNESIUM 1.6 mg/dL (1.8-2.4)
[2023-02-07 08:03] LABS: CREATININE 0.4 mg/dL (0.55-1.3)
[2023-02-07 08:17] LABS: PHOSPHOROUS 0.9 mg/dL (2.5-4.9)
[2023-02-07] MEDS: HEPARIN NA (PORCINE) 5,000 UNITS/ML 1ML VIAL SQ SCH ×2 (09:10→21:21)
[2023-02-07] MEDS: levETIRAcetam 500 MG/5 ML INJECTION VIAL IVPB SCH ×2 (09:10→21:21)
[2023-02-07] MEDS: AMINO ACIDS 4.25%/D5W 1,000 ML IV SCH (09:19)
[2023-02-07] MEDS: MULTIVITAMINS (DAILY MVI) TABLET (FP) PO SCH (09:20)
[2023-02-07] MEDS: PANTOPRAZOLE SODIUM 40 MG VIAL IVPUSH SCH (09:21)
[2023-02-07] MEDS: ASCORBIC ACID 500 MG TABLET (FP) PO SCH (09:21)
[2023-02-07] MEDS ORDERED: VANCOMYCIN/WATER FOR INJ (PEG) 750 MG/150 ML BAG IVPB SCH (12:00)
[2023-02-07] MEDS: MUPIROCIN 2% TOPICAL OINTMENT FOR DECOLONIZATION NS SCH ×2 (15:17→22:26)
[2023-02-07] MEDS ORDERED: DEXTROSE 50%-WATER 25 GM/50 ML DISP.SYRIN IVPUSH PRN (20:51)
[2023-02-07] MEDS: FAT EMULSION/OLIVE/SOY/PHOSPHO 250 ML IV SCH (21:20)
[2023-02-07] MEDS: CHLORHEXIDINE GLUCONATE 4% CLEANSER FOR DECOLONIZATION TP SCH (21:21)
[2023-02-08] MEDS: NAPH,MB-DB/K PH,MBDB POWDER PACKET PO SCH ×2 (01:56→09:07)
[2023-02-08] MEDS: POLYETHYLENE GLYCOL (HEALTHYLAX) 3350 17 GM PACKET PEG SCH ×3 (05:15→22:54)
[2023-02-08 07:26] LABS: HEMATOCRIT 39.8 % (32.4-45.2); HEMOGLOBIN 13.2 GM/dL (10.7-15.3); MCH 29.7 pg (25.7-33.7); MCHC 33.3 g/dl (32.0-36.0); MEAN CELL VOLUME 89.3 fl (80-96); MEAN PLT VOLUME 10.3 fl (7.5-11.1); PLATELET COUNT 129 10^3/uL (134-434); RBC 4.46 M/mm3 (3.60-5.2); RDW 14.8 % (11.6-15.6)
[2023-02-08 07:34] LABS: WHITE BLOOD COUNT 13.8 K/mm3 (4.0-10.0)
[2023-02-08 08:12] LABS: ALBUMIN 3.2 g/dl (3.4-5.0); BILIRUBIN,TOTAL 0.6 mg/dL (0.2-1); CALCIUM 8.7 mg/dL (8.5-10.1); CREATININE 0.4 mg/dL (0.55-1.3); POTASSIUM 3.2 mmol/L (3.5-5.1); TOT PROT 7.2 g/dl (6.4-8.2)
[2023-02-08 08:37] LABS: ANISOCYTOSIS 0; HELMET CELLS 0; HOWELL-JOLLY BODIES 0; MACROCYTOSIS 0; OVALOCYTE 0; ROULEAU 0; SICKELED CELLS 0; TARGET CELLS 0; TEAR DROP CELLS 0; TOXIC GRANULATION 0
[2023-02-08] MEDS: PANTOPRAZOLE SODIUM 40 MG VIAL IVPUSH SCH (09:05)
[2023-02-08] MEDS: HEPARIN NA (PORCINE) 5,000 UNITS/ML 1ML VIAL SQ SCH ×2 (09:05→22:54)
[2023-02-08] MEDS: levETIRAcetam 500 MG/5 ML INJECTION VIAL IVPB SCH ×2 (09:06→22:54)
[2023-02-08] MEDS: ASCORBIC ACID 500 MG TABLET (FP) PO SCH (09:07)
[2023-02-08] MEDS: MULTIVITAMINS (DAILY MVI) TABLET (FP) PO SCH (09:07)
[2023-02-08] MEDS ORDERED: POTASSIUM CHLORIDE ORAL LIQUID 20 MEQ/15 ML GT ONE (11:12)
[2023-02-08] MEDS ORDERED: ACETAMINOPHEN 325 MG TABLET (FP) PO PRN (11:12)
[2023-02-08] MEDS ORDERED: VANCOMYCIN 1 GM/200 ML PREMIX BAG (RESTRICTED TO ID ONLY) IVPB ONE (11:24)
[2023-02-08] MEDS: ACETAMINOPHEN 650 MG/20.3 ML ORAL SOLUTION (CUPS) GT PRN ×2 (11:59→23:46)
[2023-02-08] MEDS: PIPERACILLIN/TAZOB 2.25 GM 2.25 GM in DEXTROSE 5%-WATER - 50 ML IVPB SCH ×2 (12:00→17:56)
[2023-02-08] MEDS: MULTIVIT-MINERALS ORAL LIQUID GT SCH (12:01)
[2023-02-08] MEDS: AMINO ACIDS 4.25%/D5W 1,000 ML IV SCH ×2 (19:08→22:55)
[2023-02-08] MEDS: FAT EMULSION/OLIVE/SOY/PHOSPHO 250 ML IV SCH (22:54)
[2023-02-08] MEDS: NAPH,MB-DB/K PH,MBDB POWDER PACKET GT SCH (22:54)
[2023-02-09] MEDS: PIPERACILLIN/TAZOB 2.25 GM 2.25 GM in DEXTROSE 5%-WATER - 50 ML IVPB SCH ×2 (01:30→10:27)
[2023-02-09] MEDS: POLYETHYLENE GLYCOL (HEALTHYLAX) 3350 17 GM PACKET PEG SCH ×3 (06:20→21:45)
[2023-02-09 08:02] LABS: CALCIUM 8.5 mg/dL (8.5-10.1)
[2023-02-09 08:03] LABS: BLOOD UREA NITROGEN 13.2 mg/dL (7-18)
[2023-02-09 08:05] LABS: CREATININE 0.4 mg/dL (0.55-1.3)
[2023-02-09 08:07] LABS: BILIRUBIN,TOTAL 0.5 mg/dL (0.2-1); TOT PROT 6.1 g/dl (6.4-8.2)
[2023-02-09] MEDS ORDERED: POTASSIUM CHLORIDE ORAL LIQUID 20 MEQ/15 ML PEG ONE (08:12)
[2023-02-09 08:25] LABS: BASO % 0.6 % (0-2.0); EOS % 0.6 % (0-4.5); HEMATOCRIT 33.1 % (32.4-45.2); HEMOGLOBIN 11.5 GM/dL (10.7-15.3); LYMPH % 22.8 % (8-40); MCH 30.6 pg (25.7-33.7); MCHC 34.8 g/dl (32.0-36.0); MEAN CELL VOLUME 88.1 fl (80-96); MEAN PLT VOLUME 10.2 fl (7.5-11.1); MONO % 12.6 % (3.8-10.2); NEUT % 63.4 % (42.8-82.8); PLATELET COUNT 141 10^3/uL (134-434); RBC 3.75 M/mm3 (3.60-5.2); WHITE BLOOD COUNT 7.9 K/mm3 (4.0-10.0)
[2023-02-09 09:28] LABS: MAGNESIUM 1.5 mg/dL (1.8-2.4)
[2023-02-09 09:31] LABS: PHOSPHOROUS 1.2 mg/dL (2.5-4.9)
[2023-02-09] MEDS ORDERED: MAGNESIUM 2GM/50ML STERILE WATER IVPB IVPB ONE (09:44)
[2023-02-09] MEDS: MULTIVIT-MINERALS ORAL LIQUID GT SCH (10:29)
[2023-02-09] MEDS: PANTOPRAZOLE SODIUM 40 MG VIAL IVPUSH SCH (10:30)
[2023-02-09] MEDS: HEPARIN NA (PORCINE) 5,000 UNITS/ML 1ML VIAL SQ SCH ×2 (10:31→21:45)
[2023-02-09] MEDS: NAPH,MB-DB/K PH,MBDB POWDER PACKET GT SCH ×2 (10:33→21:45)
[2023-02-09] MEDS: ASCORBIC ACID 500 MG TABLET (FP) GT SCH (10:33)
[2023-02-09] MEDS: AMINO ACIDS 4.25%/D5W 1,000 ML IV SCH (10:44)
[2023-02-09] MEDS ORDERED: POTASSIUM PHOSPHATE 15 MM in SODIUM CHLORIDE 250 ML IVPB ONE (11:00)
[2023-02-09] MEDS: levETIRAcetam 500 MG/5 ML INJECTION VIAL IVPB SCH ×2 (11:40→21:46)
[2023-02-09] MEDS: KCL 10 MEQ IVPB 10 MEQ/100 ML INFUS.BAG IVPB SCH (12:50)
[2023-02-09 15:56] VITALS: BMI 23.5
[2023-02-09] MEDS: ACETAMINOPHEN 650 MG/20.3 ML ORAL SOLUTION (CUPS) GT PRN (19:00)
[2023-02-09] MEDS: FAT EMULSION/OLIVE/SOY/PHOSPHO 250 ML IV SCH (21:45)
[2023-02-10] MEDS: POLYETHYLENE GLYCOL (HEALTHYLAX) 3350 17 GM PACKET PEG SCH ×3 (05:46→21:32)
[2023-02-10] MEDS: ACETAMINOPHEN 650 MG/20.3 ML ORAL SOLUTION (CUPS) GT PRN ×3 (05:46→21:41)
[2023-02-10 07:15] LABS: BASO % 0.3 % (0-2.0); EOS % 0.3 % (0-4.5); HEMOGLOBIN 13.7 GM/dL (10.7-15.3); MCH 30.9 pg (25.7-33.7); MEAN CELL VOLUME 88.3 fl (80-96); MEAN PLT VOLUME 9.4 fl (7.5-11.1); MONO % 7.5 % (3.8-10.2); NEUT % 80.9 % (42.8-82.8); PLATELET COUNT 181 10^3/uL (134-434); RBC 4.42 M/mm3 (3.60-5.2); WHITE BLOOD COUNT 9.5 K/mm3 (4.0-10.0)
[2023-02-10 07:58] LABS: ALBUMIN 3.1 g/dl (3.4-5.0); BILIRUBIN,TOTAL 0.3 mg/dL (0.2-1); BLOOD UREA NITROGEN 13.9 mg/dL (7-18); CALCIUM 8.5 mg/dL (8.5-10.1); CREATININE 0.7 mg/dL (0.55-1.3); PHOSPHOROUS 1.6 mg/dL (2.5-4.9); POTASSIUM 3.6 mmol/L (3.5-5.1); TOT PROT 6.9 g/dl (6.4-8.2)
[2023-02-10] MEDS ORDERED: POTASSIUM PHOSPHATE 15 MM in SODIUM CHLORIDE 250 ML IVPB ONE (10:00)
[2023-02-10] MEDS: MULTIVIT-MINERALS ORAL LIQUID GT SCH (10:14)
[2023-02-10] MEDS: PANTOPRAZOLE SODIUM 40 MG VIAL IVPUSH SCH (10:14)
[2023-02-10] MEDS: levETIRAcetam 500 MG/5 ML INJECTION VIAL IVPB SCH ×2 (10:14→21:32)
[2023-02-10] MEDS: HEPARIN NA (PORCINE) 5,000 UNITS/ML 1ML VIAL SQ SCH ×2 (10:14→21:32)
[2023-02-10] MEDS: NAPH,MB-DB/K PH,MBDB POWDER PACKET GT SCH ×2 (10:15→21:32)
[2023-02-10] MEDS: ASCORBIC ACID 500 MG TABLET (FP) GT SCH (10:17)
[2023-02-10] MEDS: ARTIFICIAL TEARS (POLYVINYL ALCOHOL) OPTH DROPS OU SCH ×2 (13:30→21:33)
[2023-02-10] MEDS: PIPERACILLIN/TAZOB 2.25 GM 2.25 GM in DEXTROSE 5%-WATER - 50 ML IVPB SCH ×2 (15:58→15:59)
[2023-02-10 17:40] LABS: EPI CELLS >36 /uL (0-25.1); HYALINE CASTS 2 /uL (0-3.1); URINE APPEARANCE CLEAR; URINE BACTERIA 5 /uL (0-1359); URINE BILIRUBIN NEGATIVE (NEGATIVE); URINE COLOR YELLOW; URINE GLUCOSE (UA) NEGATIVE (NEGATIVE); URINE KETONE NEGATIVE (NEGATIVE); URINE LEUK ESTERASE 1+ (NEGATIVE); URINE NITRITE NEGATIVE (NEGATIVE); URINE PROTEIN 1+ (NEGATIVE); URINE RBC 28 /uL (0-23.9); URINE UROBILINOGEN 0.2 mg/dL (0.2-1.0); URINE WBC 98 /uL (0-25.8)
[2023-02-10 17:55] LABS: YEAST PRESENT (NEGATIVE)
[2023-02-11] MEDS ORDERED: KETOCONAZOLE 2 % SHAMPOO 120 ML BOTTLE TP PRN (00:01)
[2023-02-11] MEDS: BACLOFEN 10 MG TABLET (FP) GT SCH ×3 (06:27→21:07)
[2023-02-11] MEDS: POLYETHYLENE GLYCOL (HEALTHYLAX) 3350 17 GM PACKET PEG SCH ×3 (06:27→21:06)
[2023-02-11] MEDS: AMINO ACIDS/PROTEIN HYDROLYS 30 ML LIQUID.PKT GT SCH (08:34)
[2023-02-11] MEDS: ARTIFICIAL TEARS (POLYVINYL ALCOHOL) OPTH DROPS OU SCH ×2 (09:52→21:09)
[2023-02-11] MEDS: NAPH,MB-DB/K PH,MBDB POWDER PACKET GT SCH ×2 (09:53→21:07)
[2023-02-11] MEDS: PANTOPRAZOLE SODIUM 40 MG VIAL IVPUSH SCH (09:53)
[2023-02-11] MEDS: MULTIVIT-MINERALS ORAL LIQUID GT SCH ×2 (09:53→09:54)
[2023-02-11] MEDS: HEPARIN NA (PORCINE) 5,000 UNITS/ML 1ML VIAL SQ SCH ×2 (09:53→21:06)
[2023-02-11] MEDS: levETIRAcetam 500 MG/5 ML INJECTION VIAL IVPB SCH ×2 (09:53→21:07)
[2023-02-11] MEDS: diazePAM 5 MG TABLET GT SCH ×2 (09:54→21:07)
[2023-02-11] MEDS: ASCORBIC ACID 500 MG TABLET (FP) GT SCH (09:55)
[2023-02-11 11:20] LABS: BASO % 0.8 % (0-2.0); EOS % 2.7 % (0-4.5); HEMATOCRIT 33.8 % (32.4-45.2); HEMOGLOBIN 11.5 GM/dL (10.7-15.3); LYMPH % 26.4 % (8-40); MCH 30.5 pg (25.7-33.7); MCHC 34.1 g/dl (32.0-36.0); MEAN CELL VOLUME 89.3 fl (80-96); MEAN PLT VOLUME 10.2 fl (7.5-11.1); MONO % 9.7 % (3.8-10.2); NEUT % 60.4 % (42.8-82.8); PLATELET COUNT 173 10^3/uL (134-434); RBC 3.79 M/mm3 (3.60-5.2); RDW 15.4 % (11.6-15.6); WHITE BLOOD COUNT 6.9 K/mm3 (4.0-10.0)
[2023-02-11 11:41] LABS: POTASSIUM 3.7 mmol/L (3.5-5.1)
[2023-02-11 11:43] LABS: CALCIUM 8.4 mg/dL (8.5-10.1)
[2023-02-11 11:44] LABS: ALBUMIN 2.7 g/dl (3.4-5.0); BLOOD UREA NITROGEN 15.8 mg/dL (7-18); MAGNESIUM 2.2 mg/dL (1.8-2.4)
[2023-02-11 11:47] LABS: CREATININE 0.4 mg/dL (0.55-1.3); PHOSPHOROUS 2.6 mg/dL (2.5-4.9)
[2023-02-11 11:48] LABS: BILIRUBIN,TOTAL 0.4 mg/dL (0.2-1); TOT PROT 5.8 g/dl (6.4-8.2)
[2023-02-11] MEDS: ACETAMINOPHEN 650 MG/20.3 ML ORAL SOLUTION (CUPS) GT PRN (21:08)
[2023-02-12] MEDS: BACLOFEN 10 MG TABLET (FP) GT SCH ×3 (06:53→22:13)
[2023-02-12] MEDS: POLYETHYLENE GLYCOL (HEALTHYLAX) 3350 17 GM PACKET PEG SCH ×3 (06:53→22:13)
[2023-02-12 07:25] LABS: BASO % 0.4 % (0-2.0); EOS % 4.2 % (0-4.5); HEMOGLOBIN 11.7 GM/dL (10.7-15.3); LYMPH % 25.7 % (8-40); MCH 30.6 pg (25.7-33.7); MCHC 34.4 g/dl (32.0-36.0); MEAN CELL VOLUME 88.8 fl (80-96); MEAN PLT VOLUME 9.2 fl (7.5-11.1); MONO % 8.7 % (3.8-10.2); PLATELET COUNT 205 10^3/uL (134-434); RBC 3.83 M/mm3 (3.60-5.2); RDW 15.4 % (11.6-15.6); WHITE BLOOD COUNT 6.8 K/mm3 (4.0-10.0)
[2023-02-12 07:43] LABS: POTASSIUM 4.1 mmol/L (3.5-5.1)
[2023-02-12 07:47] LABS: BLOOD UREA NITROGEN 15.9 mg/dL (7-18); CALCIUM 8.7 mg/dL (8.5-10.1); CREATININE 0.4 mg/dL (0.55-1.3); PHOSPHOROUS 2.8 mg/dL (2.5-4.9)
[2023-02-12] MEDS: NAPH,MB-DB/K PH,MBDB POWDER PACKET GT SCH ×2 (10:54→22:13)
[2023-02-12] MEDS: ASCORBIC ACID 500 MG TABLET (FP) GT SCH (10:54)
[2023-02-12] MEDS: MULTIVIT-MINERALS ORAL LIQUID GT SCH ×2 (10:54→11:38)
[2023-02-12] MEDS: diazePAM 5 MG TABLET GT SCH ×2 (10:54→22:13)
[2023-02-12] MEDS: AMINO ACIDS/PROTEIN HYDROLYS 30 ML LIQUID.PKT GT SCH (10:55)
[2023-02-12] MEDS: HEPARIN NA (PORCINE) 5,000 UNITS/ML 1ML VIAL SQ SCH ×2 (10:56→22:13)
[2023-02-12] MEDS: PANTOPRAZOLE SODIUM 40 MG VIAL IVPUSH SCH (10:56)
[2023-02-12] MEDS: levETIRAcetam 500 MG/5 ML INJECTION VIAL IVPB SCH ×2 (10:56→22:13)
[2023-02-12] MEDS: ARTIFICIAL TEARS (POLYVINYL ALCOHOL) OPTH DROPS OU SCH ×2 (11:15→22:13)
[2023-02-12] MEDS: ACETAMINOPHEN 650 MG/20.3 ML ORAL SOLUTION (CUPS) GT PRN (11:16)
[2023-02-12] MEDS ORDERED: INSULIN (NOVOLOG) ASPART 100 UNITS/ML 10ML VIAL ONE (12:43)
[2023-02-13] MEDS: BACLOFEN 10 MG TABLET (FP) GT SCH ×3 (06:15→22:03)
[2023-02-13] MEDS: POLYETHYLENE GLYCOL (HEALTHYLAX) 3350 17 GM PACKET PEG SCH ×3 (06:15→22:03)
[2023-02-13] MEDS: levETIRAcetam 500 MG/5 ML INJECTION VIAL IVPB SCH ×2 (09:06→22:03)
[2023-02-13] MEDS: PANTOPRAZOLE SODIUM 40 MG VIAL IVPUSH SCH (09:06)
[2023-02-13] MEDS: AMINO ACIDS/PROTEIN HYDROLYS 30 ML LIQUID.PKT GT SCH (09:06)
[2023-02-13] MEDS: diazePAM 5 MG TABLET GT SCH ×2 (09:07→22:04)
[2023-02-13] MEDS: MULTIVIT-MINERALS ORAL LIQUID GT SCH (09:07)
[2023-02-13] MEDS: HEPARIN NA (PORCINE) 5,000 UNITS/ML 1ML VIAL SQ SCH (09:07)
[2023-02-13] MEDS: ARTIFICIAL TEARS (POLYVINYL ALCOHOL) OPTH DROPS OU SCH ×2 (09:08→22:05)
[2023-02-13] MEDS: ASCORBIC ACID 500 MG TABLET (FP) GT SCH (09:08)
[2023-02-13] MEDS: NAPH,MB-DB/K PH,MBDB POWDER PACKET GT SCH ×2 (09:08→22:03)
[2023-02-14] MEDS: BACLOFEN 10 MG TABLET (FP) GT SCH ×3 (07:01→22:50)
[2023-02-14] MEDS: POLYETHYLENE GLYCOL (HEALTHYLAX) 3350 17 GM PACKET PEG SCH ×3 (07:01→22:50)
[2023-02-14] MEDS: AMINO ACIDS/PROTEIN HYDROLYS 30 ML LIQUID.PKT GT SCH (08:35)
[2023-02-14] MEDS: ARTIFICIAL TEARS (POLYVINYL ALCOHOL) OPTH DROPS OU SCH ×2 (09:09→22:51)
[2023-02-14] MEDS: levETIRAcetam 500 MG/5 ML INJECTION VIAL IVPB SCH ×2 (09:10→22:50)
[2023-02-14] MEDS: ASCORBIC ACID 500 MG TABLET (FP) GT SCH (09:10)
[2023-02-14] MEDS: MULTIVIT-MINERALS ORAL LIQUID GT SCH (09:10)
[2023-02-14] MEDS: PANTOPRAZOLE SODIUM 40 MG VIAL IVPUSH SCH (09:10)
[2023-02-14] MEDS: NAPH,MB-DB/K PH,MBDB POWDER PACKET GT SCH ×2 (09:10→22:50)
[2023-02-14] MEDS: diazePAM 5 MG TABLET GT SCH ×2 (09:10→22:50)
[2023-02-14 10:05] LABS: BASO % 0.7 % (0-2.0); EOS % 4.4 % (0-4.5); HEMATOCRIT 32.2 % (32.4-45.2); HEMOGLOBIN 11.2 GM/dL (10.7-15.3); LYMPH % 23.6 % (8-40); MCH 31.5 pg (25.7-33.7); MCHC 34.9 g/dl (32.0-36.0); MEAN CELL VOLUME 90.1 fl (80-96); MEAN PLT VOLUME 9.1 fl (7.5-11.1); MONO % 7.7 % (3.8-10.2); NEUT % 63.6 % (42.8-82.8); PLATELET COUNT 283 10^3/uL (134-434); RBC 3.57 M/mm3 (3.60-5.2); RDW 15.2 % (11.6-15.6); WHITE BLOOD COUNT 4.6 K/mm3 (4.0-10.0)
[2023-02-14 10:42] LABS: POTASSIUM 4.5 mmol/L (3.5-5.1)
[2023-02-14 10:45] LABS: ALBUMIN 2.8 g/dl (3.4-5.0); CALCIUM 8.8 mg/dL (8.5-10.1)
[2023-02-14 10:46] LABS: BLOOD UREA NITROGEN 16.7 mg/dL (7-18)
[2023-02-14 10:49] LABS: CREATININE 0.4 mg/dL (0.55-1.3)
[2023-02-14 10:50] LABS: TOT PROT 6.3 g/dl (6.4-8.2)
[2023-02-14 10:51] LABS: BILIRUBIN,TOTAL 0.2 mg/dL (0.2-1)
[2023-02-14 22:33] VITALS: RESP 18
[2023-02-15] MEDS: BACLOFEN 10 MG TABLET (FP) GT SCH ×2 (06:57→13:59)
[2023-02-15] MEDS: POLYETHYLENE GLYCOL (HEALTHYLAX) 3350 17 GM PACKET PEG SCH ×2 (06:57→13:59)
[2023-02-15 09:08] LABS: BASO % 0.4 % (0-2.0); EOS % 4.4 % (0-4.5); HEMATOCRIT 34.5 % (32.4-45.2); HEMOGLOBIN 11.7 GM/dL (10.7-15.3); INR 0.97 (0.83-1.09); LYMPH % 25.6 % (8-40); MCH 30.4 pg (25.7-33.7); MCHC 33.8 g/dl (32.0-36.0); MEAN CELL VOLUME 89.8 fl (80-96); MEAN PLT VOLUME 8.4 fl (7.5-11.1); MONO % 9.8 % (3.8-10.2); NEUT % 59.8 % (42.8-82.8); PLATELET COUNT 316 10^3/uL (134-434); PROTHROMBIN TIME (PATIENT) 11.2 SEC (9.7-13.0); RBC 3.84 M/mm3 (3.60-5.2); RDW 15.4 % (11.6-15.6); WHITE BLOOD COUNT 4.5 K/mm3 (4.0-10.0)
[2023-02-15 09:16] LABS: POTASSIUM 4.3 mmol/L (3.5-5.1)
[2023-02-15 09:18] LABS: ALBUMIN 2.8 g/dl (3.4-5.0); CALCIUM 9.1 mg/dL (8.5-10.1)
[2023-02-15 09:19] LABS: BLOOD UREA NITROGEN 18.1 mg/dL (7-18)
[2023-02-15 09:21] LABS: CREATININE 0.5 mg/dL (0.55-1.3); PHOSPHOROUS 3.8 mg/dL (2.5-4.9)
[2023-02-15 09:23] LABS: BILIRUBIN,TOTAL 0.2 mg/dL (0.2-1); TOT PROT 6.4 g/dl (6.4-8.2)
[2023-02-15] MEDS: AMINO ACIDS/PROTEIN HYDROLYS 30 ML LIQUID.PKT GT SCH (10:00)
[2023-02-15] MEDS: ARTIFICIAL TEARS (POLYVINYL ALCOHOL) OPTH DROPS OU SCH (10:00)
[2023-02-15] MEDS: levETIRAcetam 500 MG/5 ML INJECTION VIAL IVPB SCH (10:01)
[2023-02-15] MEDS: MULTIVIT-MINERALS ORAL LIQUID GT SCH (10:01)
[2023-02-15] MEDS: ASCORBIC ACID 500 MG TABLET (FP) GT SCH (10:04)
[2023-02-15] MEDS: diazePAM 5 MG TABLET GT SCH (10:04)
[2023-02-15] MEDS: PANTOPRAZOLE SODIUM 40 MG VIAL IVPUSH SCH (10:04)
[2023-02-15] MEDS: NAPH,MB-DB/K PH,MBDB POWDER PACKET GT SCH (10:04)
[2023-02-15 16:05] VITALS: BP 119/45; PULSE 107; TEMP 98.9
== END 2023-02-15 16:40 | DRG 247 ==
LOC: JER 06:41 → JERBED 11:41 → JICU 14:55 → J7W 02-06 11:58
PROVIDERS: ADMIT Internal Medicine Pulmonary Disease; ATTEND Nurse Practitioner Acute Care
PROC: 05HM33Z Insertion of Infusion Device into Right Internal Jugular Vein, Percutaneous Approach (ICD-10-PCS; principal; 2023-02-05)
PROC: B543ZZA Ultrasonography of Right Jugular Veins, Guidance (ICD-10-PCS; 2023-02-05)
DX: K56.7 Ileus, unspecified (principal); F73 Profound intellectual disabilities; G80.9 Cerebral palsy, unspecified; G80.0 Spastic quadriplegic cerebral palsy; G40.909 Epilepsy, unspecified, not intractable, without status epilepticus; M41.9 Scoliosis, unspecified; K76.0 Fatty (change of) liver, not elsewhere classified; E87.6 Hypokalemia; K21.9 Gastro-esophageal reflux disease without esophagitis; K59.09 Other constipation; R74.01 Elevation of levels of liver transaminase levels; R78.81 Bacteremia; K92.0 Hematemesis; R94.5 Abnormal results of liver function studies; H50.10 Unspecified exotropia; R50.9 Fever, unspecified; E83.39 Other disorders of phosphorus metabolism; R00.0 Tachycardia, unspecified; H10.89 Other conjunctivitis; I95.9 Hypotension, unspecified; Z93.1 Gastrostomy status; Z74.01 Bed confinement status
CPT/HCPCS: 0241U-QW; 36415; 36600; 71045-TC-FY; 74018-TC-FY; 74177-TC; 80048; 80053; 81003; 82150; 82272; 82550; 82553; 82803; 82962; 83516; 83605; 83690; 83735; 84100; 84439; 84443; 84484; 85025; 85027; 85610; 85730; 86038; 86140; 86803; 86850; 86900; 86901; 87040; 87086; 87635; 93005; 93010; 99285-25; J0475; J1644; Q9967

== ENCOUNTER 2023-05-18 13:56 | Observation (INO) | payer OTHER ==
[2023-05-18] MEDS ORDERED: levETIRAcetam 500 MG/5 ML INJECTION VIAL IVPB ONE ×2 (17:00→17:19)
[2023-05-18 17:45] LABS: VENOUS BASE EXCESS 7.1 mmol/L (-2-2); VENOUS O2 SATURATION 72.2 % (70-80); VENOUS PCO2 54.6 mmHg (38-52); VENOUS PH 7.406 (7.310-7.410)
[2023-05-18 17:46] LABS: BASO % 0.3 % (0-2.0); EOS % 0.2 % (0-4.5); HEMATOCRIT 44.9 % (32.4-45.2); HEMOGLOBIN 14.7 GM/dL (10.7-15.3); LYMPH % 12.9 % (8-40); MCH 29.2 pg (25.7-33.7); MCHC 32.8 g/dl (32.0-36.0); MEAN CELL VOLUME 89.1 fl (80-96); MEAN PLT VOLUME 10.5 fl (7.5-11.1); MONO % 9.4 % (3.8-10.2); NEUT % 77.2 % (42.8-82.8); PLATELET COUNT 185 10^3/uL (134-434); RBC 5.04 M/mm3 (3.60-5.2); RDW 13.9 % (11.6-15.6); WHITE BLOOD COUNT 9.8 K/mm3 (4.0-10.0)
[2023-05-18 17:53] LABS: INR 1.03 (0.83-1.09); PROTHROMBIN TIME (PATIENT) 11.9 SEC (9.7-13.0)
[2023-05-18 17:56] LABS: ACTIVATED PTT 46.1 SECONDS (25.2-36.5)
[2023-05-18 18:06] LABS: POTASSIUM 3.7 mmol/L (3.5-5.1)
[2023-05-18 18:08] LABS: CALCIUM 10.1 mg/dL (8.5-10.1)
[2023-05-18 18:09] LABS: ALBUMIN 3.6 g/dl (3.4-5.0); BLOOD UREA NITROGEN 13.5 mg/dL (7-18)
[2023-05-18 18:12] LABS: CREATININE 0.6 mg/dL (0.55-1.3)
[2023-05-18 18:14] LABS: BILIRUBIN,TOTAL 0.3 mg/dL (0.2-1); TOT PROT 7.8 g/dl (6.4-8.2)
[2023-05-19] MEDS ORDERED: levETIRAcetam 500 MG/5 ML INJECTION VIAL IVPB ONE (00:23)
[2023-05-19] MEDS ORDERED: ACETAMINOPHEN 325 MG TABLET (FP) PO PRN (00:23)
[2023-05-19] MEDS ORDERED: DIPHENHYDRAMINE HCL GT PRN (00:23)
[2023-05-19] MEDS ORDERED: BISACODYL 10 MG SUPP.RECT RC PRN (00:23)
[2023-05-19] MEDS ORDERED: KETOCONAZOLE 2 % SHAMPOO 120 ML BOTTLE TP SCH (00:23)
[2023-05-19] MEDS: levETIRAcetam 500 MG/5 ML INJECTION VIAL IVPB SCH ×2 (00:31→09:23)
[2023-05-19] MEDS ORDERED: diazePAM 5 MG TABLET ONE (05:55)
[2023-05-19] MEDS ORDERED: BACLOFEN 10 MG TABLET (FP) ONE ×2 (05:55→14:19)
[2023-05-19] MEDS ORDERED: POLYETHYLENE GLYCOL (HEALTHYLAX) 3350 17 GM PACKET PEG SCH (06:00)
[2023-05-19] MEDS: BACITRACIN ZINC 15 GM TUBE TOPICAL OINTMENT TP SCH ×4 (06:04→22:28)
[2023-05-19] MEDS: diazePAM 5 MG TABLET GT SCH ×2 (06:04→17:34)
[2023-05-19] MEDS: BACLOFEN 10 MG TABLET (FP) GT SCH ×3 (06:05→22:05)
[2023-05-19 07:39] LABS: BASO % 0.9 % (0-2.0); HEMATOCRIT 38.8 % (32.4-45.2); HEMOGLOBIN 13.3 GM/dL (10.7-15.3); LYMPH % 28.3 % (8-40); MCH 30.7 pg (25.7-33.7); MCHC 34.3 g/dl (32.0-36.0); MEAN CELL VOLUME 89.5 fl (80-96); MEAN PLT VOLUME 10.4 fl (7.5-11.1); MONO % 8.9 % (3.8-10.2); NEUT % 59.9 % (42.8-82.8); PLATELET COUNT 153 10^3/uL (134-434); RBC 4.34 M/mm3 (3.60-5.2); RDW 14.3 % (11.6-15.6); WHITE BLOOD COUNT 5.1 K/mm3 (4.0-10.0)
[2023-05-19] MEDS ORDERED: SODIUM CHLORIDE 500 ML IV STA (07:45)
[2023-05-19 07:55] LABS: CALCIUM 8.7 mg/dL (8.5-10.1)
[2023-05-19 07:56] LABS: BLOOD UREA NITROGEN 11.8 mg/dL (7-18)
[2023-05-19 07:59] LABS: CREATININE 0.5 mg/dL (0.55-1.3)
[2023-05-19] MEDS ORDERED: AMINO ACIDS/PROTEIN HYDROLYS 30 ML LIQUID.PKT GT SCH (08:00)
[2023-05-19 08:28] LABS: PH,URINE 7.5 (5.0-8.0); URINE APPEARANCE TURBID; URINE BILIRUBIN NEGATIVE (NEGATIVE); URINE COLOR YELLOW; URINE GLUCOSE (UA) NEGATIVE (NEGATIVE); URINE KETONE NEGATIVE (NEGATIVE); URINE LEUK ESTERASE NEGATIVE (NEGATIVE); URINE NITRITE NEGATIVE (NEGATIVE); URINE PROTEIN NEGATIVE (NEGATIVE); URINE UROBILINOGEN 0.2 mg/dL (0.2-1.0)
[2023-05-19] MEDS: ENOXAPARIN NA (PORCINE) 40 MG/0.4 ML DISP.SYRIN SQ SCH (09:23)
[2023-05-19] MEDS ORDERED: ASCORBIC ACID 500 MG TABLET (FP) GT SCH (10:00)
[2023-05-19] MEDS ORDERED: ERYTHROMYCIN 0.5% OPHTHALMIC OINTMENT 3.5 GM TUBE OU SCH (10:00)
[2023-05-19] MEDS ORDERED: [UNRECOGNIZED DRUG - OTHER] GT SCH (10:00)
[2023-05-19] MEDS ORDERED: MULTIVIT-MINERALS ORAL LIQUID GT SCH (10:00)
[2023-05-19] MEDS ORDERED: [UNRECOGNIZED DRUG - OTHER] PO SCH (10:00)
[2023-05-19] MEDS ORDERED: VITAMIN D3 GT SCH (10:00)
[2023-05-19] MEDS ORDERED: CALCIUM CARBONATE GT SCH (10:00)
[2023-05-19] MEDS ORDERED: CHOLECALCIFEROL (VIT D3) 400 UNIT (10 MCG) TABLET PO SCH (10:00)
[2023-05-19] MEDS ORDERED: PATIENT'S OWN MEDICATION (NON-FORMULARY) (Cetirizine Hcl [Cetirizine Hcl] 10 MG Tablet) PEG SCH (10:00)
[2023-05-19] MEDS: LACTATED RINGERS SOLUTION 1,000 ML/1,000 ML INFUS.BAG IV SCH ×2 (11:50→18:35)
[2023-05-19] MEDS: KETOCONAZOLE 2 % SHAMPOO 120 ML BOTTLE TP SCH (12:48)
[2023-05-19] MEDS: ARTIFICIAL TEARS (POLYVINYL ALCOHOL) OPTH DROPS OU SCH ×2 (12:48→22:20)
[2023-05-19] MEDS: ERYTHROMYCIN 0.5% OPHTHALMIC OINTMENT 3.5 GM TUBE OU SCH ×4 (12:48→22:19)
[2023-05-19] MEDS: PIPERACILLIN/TAZOB 3.375 GM 3.375 GM in DEXTROSE 5%-WATER - 50 ML IVPB SCH ×2 (16:27→17:36)
[2023-05-19] MEDS ORDERED: PATIENT'S OWN MEDICATION (NON-FORMULARY) (Sennosides [Senna] 8.6 MG Capsule) PEG SCH (22:00)
[2023-05-19] MEDS ORDERED: levETIRAcetam 500 MG/5 ML ORAL SOLUTION (UNIT-DOSE CUPS) PO SCH (22:00)
[2023-05-19] MEDS: PSYLLIUM 5.85 GM PACKET GT SCH (22:19)
[2023-05-20] MEDS: PIPERACILLIN/TAZOB 3.375 GM 3.375 GM in DEXTROSE 5%-WATER - 50 ML IVPB SCH ×2 (01:45→09:43)
[2023-05-20] MEDS: diazePAM 5 MG TABLET GT SCH ×2 (05:21→16:48)
[2023-05-20] MEDS: BACLOFEN 10 MG TABLET (FP) GT SCH ×3 (05:21→22:29)
[2023-05-20] MEDS: BACITRACIN ZINC 15 GM TUBE TOPICAL OINTMENT TP SCH ×3 (05:22→22:29)
[2023-05-20] MEDS ORDERED: ACETAMINOPHEN 650 MG/20.3 ML ORAL SOLUTION (CUPS) GT PRN (07:39)
[2023-05-20] MEDS: AMINO ACIDS/PROTEIN HYDROLYS 30 ML LIQUID.PKT GT SCH (09:40)
[2023-05-20] MEDS: levETIRAcetam 500 MG/5 ML ORAL SOLUTION (UNIT-DOSE CUPS) GT SCH ×2 (09:40→22:28)
[2023-05-20] MEDS: LACTOBACILLUS ACIDOPHILUS 1 TABLET GT SCH (09:40)
[2023-05-20] MEDS: ASCORBIC ACID 500 MG TABLET (FP) GT SCH (09:40)
[2023-05-20] MEDS: MULTIVIT-MINERALS ORAL LIQUID GT SCH (09:40)
[2023-05-20] MEDS: ERYTHROMYCIN 0.5% OPHTHALMIC OINTMENT 3.5 GM TUBE OU SCH ×4 (09:41→22:29)
[2023-05-20] MEDS: ARTIFICIAL TEARS (POLYVINYL ALCOHOL) OPTH DROPS OU SCH ×2 (09:42→22:29)
[2023-05-20] MEDS: ENOXAPARIN NA (PORCINE) 40 MG/0.4 ML DISP.SYRIN SQ SCH (09:50)
[2023-05-20 11:33] VITALS: BMI 25.2
[2023-05-20] MEDS: POLYETHYLENE GLYCOL (HEALTHYLAX) 3350 17 GM PACKET GT SCH ×2 (13:07→22:29)
[2023-05-20] MEDS ORDERED: SENNOSIDES 8.6MG TABLET (FP) PO SCH (22:00)
[2023-05-20] MEDS: PSYLLIUM 5.85 GM PACKET GT SCH (22:32)
[2023-05-21] MEDS: BACLOFEN 10 MG TABLET (FP) GT SCH (05:38)
[2023-05-21] MEDS: diazePAM 5 MG TABLET GT SCH (05:38)
[2023-05-21] MEDS: POLYETHYLENE GLYCOL (HEALTHYLAX) 3350 17 GM PACKET GT SCH (05:39)
[2023-05-21] MEDS: BACITRACIN ZINC 15 GM TUBE TOPICAL OINTMENT TP SCH (05:39)
[2023-05-21] MEDS: AMINO ACIDS/PROTEIN HYDROLYS 30 ML LIQUID.PKT GT SCH (09:13)
[2023-05-21] MEDS: ENOXAPARIN NA (PORCINE) 40 MG/0.4 ML DISP.SYRIN SQ SCH (09:24)
[2023-05-21] MEDS: levETIRAcetam 500 MG/5 ML ORAL SOLUTION (UNIT-DOSE CUPS) GT SCH (09:24)
[2023-05-21] MEDS: ASCORBIC ACID 500 MG TABLET (FP) GT SCH (09:25)
[2023-05-21] MEDS: LACTOBACILLUS ACIDOPHILUS 1 TABLET GT SCH (09:25)
[2023-05-21] MEDS: ARTIFICIAL TEARS (POLYVINYL ALCOHOL) OPTH DROPS OU SCH (09:25)
[2023-05-21] MEDS: MULTIVIT-MINERALS ORAL LIQUID GT SCH (09:26)
[2023-05-21] MEDS: ERYTHROMYCIN 0.5% OPHTHALMIC OINTMENT 3.5 GM TUBE OU SCH (09:27)
[2023-05-21] MEDS: KETOCONAZOLE 2 % SHAMPOO 120 ML BOTTLE TP SCH (09:53)
[2023-05-21 11:14] VITALS: BP 123/65; PULSE 72; RESP 19; TEMP 97.6
== END 2023-05-21 11:28 | disposition home or self-care (01) ==
LOC: JER 13:56 → JERBED 21:04 → J5S 05-19 15:40
PROVIDERS: ADMIT Internal Medicine; ATTEND Internal Medicine
PROC: 3E023GC Introduction of Other Therapeutic Substance into Muscle, Percutaneous Approach (ICD-10-PCS; principal; 2023-05-18)
PROC: 3E0337Z Introduction of Electrolytic and Water Balance Substance into Peripheral Vein, Percutaneous Approach (ICD-10-PCS; 2023-05-18)
PROC: 3E033GC Introduction of Other Therapeutic Substance into Peripheral Vein, Percutaneous Approach (ICD-10-PCS; 2023-05-18)
PROC: 3E033NZ Introduction of Analgesics, Hypnotics, Sedatives into Peripheral Vein, Percutaneous Approach (ICD-10-PCS; 2023-05-18)
PROC: 3E03329 Introduction of Other Anti-infective into Peripheral Vein, Percutaneous Approach (ICD-10-PCS; 2023-05-18)
DX: G40.909 Epilepsy, unspecified, not intractable, without status epilepticus (principal); F73 Profound intellectual disabilities; G80.9 Cerebral palsy, unspecified; M41.9 Scoliosis, unspecified; G93.49 Other encephalopathy; K59.09 Other constipation; H50.10 Unspecified exotropia; Z93.1 Gastrostomy status; K52.89 Other specified noninfective gastroenteritis and colitis; H10.9 Unspecified conjunctivitis; Z29.8 Encounter for other specified prophylactic measures
CPT/HCPCS: 0241U-QW; 36415; 70450-TC; 71045-TC-FY; 80048; 80053; 80177; 81003; 82550; 82553; 82803; 82962; 83605; 84484; 85025; 85610; 85730; 86850; 86900; 86901; 87040; 87086; 87633; 93005; 93010; 96361; 96365; 96372; 96375; 96376; 99285-25; G0378; J0475

== ENCOUNTER 2024-04-30 09:05 | Inpatient (IN) | payer OTHER ==
[2024-04-30] MEDS ORDERED: ALBUTEROL SO4 2.5/IPRATROPIUM 0.5 INH SOL 3 ML VIAL.NEB. NEB ONE (10:08)
[2024-04-30 10:42] LABS: BASO % 0.4 % (0-2.0); EOS % 1.1 % (0-4.5); HEMATOCRIT 40.3 % (32.4-45.2); HEMOGLOBIN 13.7 GM/dL (10.7-15.3); LYMPH % 24.2 % (8-40); MCH 30.6 pg (25.7-33.7); MEAN PLT VOLUME 9.5 fl (7.5-11.1); MONO % 7.4 % (3.8-10.2); NEUT % 66.9 % (42.8-82.8); PLATELET COUNT 141 10^3/uL (134-434); RBC 4.48 M/mm3 (3.60-5.2); RDW 15.3 % (11.6-15.6); WHITE BLOOD COUNT 3.9 K/mm3 (4.0-10.0)
[2024-04-30 10:50] LABS: INR 0.98 (0.83-1.09); PROTHROMBIN TIME (PATIENT) 11.1 SEC (9.7-13.0)
[2024-04-30 10:53] LABS: ACTIVATED PTT 36.6 SECONDS (25.2-36.5)
[2024-04-30] MEDS: ALBUTEROL SO4 2.5/IPRATROPIUM 0.5 INH SOL 3 ML VIAL.NEB. NEB ONE (11:05)
[2024-04-30] MEDS: SODIUM CHLORIDE 0.9% 500 ML INFUS.BAG IV ONE ×2 (11:05→12:21)
[2024-04-30 11:09] LABS: POTASSIUM 4.3 mmol/L (3.5-5.1)
[2024-04-30 11:09] LABS: VENOUS BASE EXCESS 2.5 mmol/L (-2-2); VENOUS O2 SATURATION 97.7 % (70-80); VENOUS PCO2 52.9 mmHg (38-52); VENOUS PH 7.359 (7.310-7.410)
[2024-04-30 11:11] LABS: ALBUMIN 3.2 g/dl (3.4-5.0); BLOOD UREA NITROGEN 24.4 mg/dL (7-18); CALCIUM 9.9 mg/dL (8.5-10.1)
[2024-04-30 11:11] LABS: PH,URINE 6.5 (5.0-8.0); URINE APPEARANCE CLEAR; URINE BILIRUBIN NEGATIVE (NEGATIVE); URINE COLOR YELLOW; URINE GLUCOSE (UA) NEGATIVE (NEGATIVE); URINE KETONE NEGATIVE (NEGATIVE); URINE LEUK ESTERASE NEGATIVE (NEGATIVE); URINE NITRITE NEGATIVE (NEGATIVE); URINE PROTEIN NEGATIVE (NEGATIVE); URINE UROBILINOGEN 0.2 mg/dL (0.2-1.0)
[2024-04-30 11:15] LABS: CREATININE 0.6 mg/dL (0.55-1.3)
[2024-04-30 11:16] LABS: BILIRUBIN,TOTAL 0.3 mg/dL (0.2-1); TOT PROT 6.8 g/dl (6.4-8.2)
[2024-04-30 11:16] LABS: EPI CELLS 3 /uL (0-25.1); HYALINE CASTS 0 /uL (0-3.1); URINE BACTERIA 6 /uL (0-1359); URINE RBC 37 /uL (0-23.9); URINE WBC 6 /uL (0-25.8)
[2024-04-30] MEDS ORDERED: PIPERACILLIN/TAZOB 4.5 GM 4.5 GM/100 ML BAG IVPB ONE ×2 (12:38→17:13)
[2024-04-30] MEDS ORDERED: VANCOMYCIN 1 GRAM (PRE-DOCKED) 1,000 MG/250 ML BAG IVPB ONE (12:38)
[2024-04-30] MEDS ORDERED: AZITHROMYCIN IVPB 500 MG/250 ML BAG IVPB ONE (12:38)
[2024-04-30] MEDS: PIPERACILLIN/TAZOB 4.5 GM 4.5 GM in DEXTROSE 5%-WATER 100 ML IVPB ONE (12:54)
[2024-04-30] MEDS: AZITHROMYCIN IVPB 500 MG in DEXTROSE 5%-WATER - 250 ML IVPB ONE (13:29)
[2024-04-30] MEDS: SODIUM CHLORIDE 1,000 ML IV STA (13:29)
[2024-04-30] MEDS: VANCOMYCIN 1,000 MG in DEXTROSE 5%-WATER - 250 ML IVPB ONE (14:23)
[2024-04-30] MEDS: LACTATED RINGERS SOLUTION 1,000 ML/1,000 ML INFUS.BAG IV SCH (16:11)
[2024-04-30] MEDS ORDERED: PIPERACILLIN/TAZOB 4.5 GM 4.5 GM in DEXTROSE 5%-WATER 100 ML IVPB SCH (18:00)
[2024-04-30] MEDS: PIPERACILLIN/TAZOB 4.5 GM 4.5 GM in DEXTROSE 5%-WATER 100 ML IVPB SCH (18:08)
[2024-04-30] MEDS ORDERED: BACLOFEN 10 MG TABLET (FP) ONE (22:07)
[2024-04-30] MEDS ORDERED: HEPARIN NA (PORCINE) 5,000 UNITS/ML 1ML VIAL ONE (22:07)
[2024-04-30] MEDS: BACLOFEN 10 MG TABLET (FP) GT SCH (23:00)
[2024-04-30] MEDS: HEPARIN NA (PORCINE) 5,000 UNITS/ML 1ML VIAL SQ SCH (23:00)
[2024-04-30] MEDS: SENNOSIDES 8.8 MG/5 ML SYRUP PEG SCH (23:00)
[2024-04-30] MEDS: levETIRAcetam 500 MG/5 ML ORAL SOLUTION (UNIT-DOSE CUPS) GT SCH (23:00)
[2024-05-01] MEDS ORDERED: PIPERACILLIN/TAZOB 4.5 GM 4.5 GM/100 ML BAG IVPB ONE ×2 (02:13→11:25)
[2024-05-01] MEDS ORDERED: BACLOFEN 10 MG TABLET (FP) ONE ×2 (06:10→15:38)
[2024-05-01 07:28] LABS: POTASSIUM 4.1 mmol/L (3.5-5.1)
[2024-05-01 07:31] LABS: BLOOD UREA NITROGEN 12.1 mg/dL (7-18)
[2024-05-01 07:34] LABS: CREATININE 0.5 mg/dL (0.55-1.3)
[2024-05-01 07:39] LABS: N-TERMINAL BNP 279.2 pg/ml (5-125)
[2024-05-01 07:42] LABS: BASO % 0.2 % (0-2.0); EOS % 3.2 % (0-4.5); HEMATOCRIT 33.8 % (32.4-45.2); HEMOGLOBIN 11.2 GM/dL (10.7-15.3); LYMPH % 20.4 % (8-40); MCH 30.7 pg (25.7-33.7); MEAN CELL VOLUME 92.9 fl (80-96); MEAN PLT VOLUME 9.4 fl (7.5-11.1); MONO % 5.4 % (3.8-10.2); NEUT % 70.8 % (42.8-82.8); PLATELET COUNT 47 10^3/uL (134-434); RBC 3.64 M/mm3 (3.60-5.2); RDW 15.7 % (11.6-15.6); WHITE BLOOD COUNT 3.4 K/mm3 (4.0-10.0)
[2024-05-01 07:52] LABS: CALCIUM 8.2 mg/dL (8.5-10.1)
[2024-05-01] MEDS ORDERED: HEPARIN NA (PORCINE) 5,000 UNITS/ML 1ML VIAL ONE (11:24)
[2024-05-01] MEDS ORDERED: LORATADINE 10 MG TABLET ONE (11:24)
[2024-05-01] MEDS: LORATADINE 10 MG TABLET PEG SCH (11:55)
[2024-05-01] MEDS: LACTOBACILLUS ACIDOPHILUS 1 TABLET PO SCH (11:55)
[2024-05-01] MEDS ORDERED: PIPERACILLIN/TAZOB 3.375 GM 3.375 GM/50 ML BAG IVPB ONE (18:56)
[2024-05-01] MEDS: PIPERACILLIN/TAZOB 3.375 GM 3.375 GM in DEXTROSE 5%-WATER - 50 ML IVPB SCH (19:01)
[2024-05-02] MEDS: SODIUM CHLORIDE 250 ML IV STA (02:25)
[2024-05-02 08:55] LABS: HEMATOCRIT 35.7 % (32.4-45.2); HEMOGLOBIN 12.1 GM/dL (10.7-15.3); MCH 30.9 pg (25.7-33.7); MEAN CELL VOLUME 90.8 fl (80-96); MEAN PLT VOLUME 8.8 fl (7.5-11.1); PLATELET COUNT 106 10^3/uL (134-434); RBC 3.93 M/mm3 (3.60-5.2); RDW 15.7 % (11.6-15.6); WHITE BLOOD COUNT 3.8 K/mm3 (4.0-10.0)
[2024-05-02 09:15] LABS: POTASSIUM 3.9 mmol/L (3.5-5.1)
[2024-05-02 09:16] LABS: CALCIUM 8.4 mg/dL (8.5-10.1)
[2024-05-02 09:17] LABS: MAGNESIUM 2.1 mg/dL (1.8-2.4)
[2024-05-02 09:19] LABS: CREATININE 0.4 mg/dL (0.55-1.3); PHOSPHOROUS 2.2 mg/dL (2.5-4.9)
[2024-05-02] MEDS: NAPH,MB-DB/K PH,MBDB POWDER PACKET PO ONE (10:07)
[2024-05-02 13:26] VITALS: BMI 25.0
[2024-05-03] MEDS ORDERED: diazePAM RECTAL GEL 10 MG KIT (PRE-CALIBRATED) RC PRN (07:41)
[2024-05-03 09:23] LABS: HEMATOCRIT 36.8 % (32.4-45.2); HEMOGLOBIN 12.5 GM/dL (10.7-15.3); MCH 30.6 pg (25.7-33.7); MCHC 33.8 g/dl (32.0-36.0); MEAN CELL VOLUME 90.5 fl (80-96); MEAN PLT VOLUME 9.1 fl (7.5-11.1); PLATELET COUNT 115 10^3/uL (134-434); RBC 4.07 M/mm3 (3.60-5.2); RDW 15.6 % (11.6-15.6); WHITE BLOOD COUNT 3.2 K/mm3 (4.0-10.0)
[2024-05-03 09:48] LABS: BLOOD UREA NITROGEN 13.6 mg/dL (7-18); CALCIUM 8.6 mg/dL (8.5-10.1); MAGNESIUM 2.3 mg/dL (1.8-2.4)
[2024-05-03 09:51] LABS: PHOSPHOROUS 2.8 mg/dL (2.5-4.9)
[2024-05-03 09:52] LABS: CREATININE 0.5 mg/dL (0.55-1.3)
[2024-05-03] MEDS: NAPH,MB-DB/K PH,MBDB POWDER PACKET GT SCH (11:05)
[2024-05-03] MEDS: diazePAM 5 MG TABLET GT SCH (11:06)
[2024-05-03] MEDS: ENOXAPARIN NA (PORCINE) 30 MG/0.3 ML DISP.SYRIN SQ SCH (11:07)
[2024-05-04 08:14] LABS: POTASSIUM 4.2 mmol/L (3.5-5.1)
[2024-05-04 08:16] LABS: CALCIUM 9.2 mg/dL (8.5-10.1)
[2024-05-04 08:17] LABS: BLOOD UREA NITROGEN 13.2 mg/dL (7-18); MAGNESIUM 2.1 mg/dL (1.8-2.4)
[2024-05-04 08:20] LABS: CREATININE 0.7 mg/dL (0.55-1.3); PHOSPHOROUS 2.8 mg/dL (2.5-4.9)
[2024-05-04 08:49] LABS: HEMATOCRIT 41.5 % (32.4-45.2); HEMOGLOBIN 14.1 GM/dL (10.7-15.3); MCH 30.7 pg (25.7-33.7); MCHC 33.9 g/dl (32.0-36.0); MEAN CELL VOLUME 90.7 fl (80-96); MEAN PLT VOLUME 9.3 fl (7.5-11.1); PLATELET COUNT 133 10^3/uL (134-434); RBC 4.58 M/mm3 (3.60-5.2); RDW 15.8 % (11.6-15.6); WHITE BLOOD COUNT 4.3 K/mm3 (4.0-10.0)
[2024-05-04] MEDS: levETIRAcetam 500 MG/5 ML INJECTION VIAL IVPB SCH (23:04)
[2024-05-05 01:35] VITALS: RESP 20
[2024-05-05 08:18] LABS: HEMATOCRIT 40.5 % (32.4-45.2); HEMOGLOBIN 13.5 GM/dL (10.7-15.3); MCH 30.3 pg (25.7-33.7); MCHC 33.3 g/dl (32.0-36.0); MEAN CELL VOLUME 90.9 fl (80-96); PLATELET COUNT 150 10^3/uL (134-434); RBC 4.46 M/mm3 (3.60-5.2); RDW 15.5 % (11.6-15.6); WHITE BLOOD COUNT 4.4 K/mm3 (4.0-10.0)
[2024-05-05 08:39] LABS: CALCIUM 8.8 mg/dL (8.5-10.1)
[2024-05-05 08:40] LABS: BLOOD UREA NITROGEN 13.3 mg/dL (7-18); MAGNESIUM 2.1 mg/dL (1.8-2.4)
[2024-05-05 08:42] LABS: CREATININE 0.6 mg/dL (0.55-1.3)
[2024-05-05 08:43] LABS: PHOSPHOROUS 2.7 mg/dL (2.5-4.9)
[2024-05-05 08:44] LABS: BILIRUBIN,TOTAL 0.4 mg/dL (0.2-1); TOT PROT 6.5 g/dl (6.4-8.2)
[2024-05-05] MEDS ORDERED: TUBE FEED DECLOGGING SOLUTION 12,000 UNITS GT ONE (12:30)
[2024-05-05 15:27] VITALS: BP 102/74; PULSE 76; TEMP 98.4
== END 2024-05-05 15:33 | DRG 137 ==
LOC: JER 09:05 → JERBED 05-01 05:40 → J4W 05-01 21:00
PROVIDERS: ADMIT Internal Medicine; ATTEND Internal Medicine
DX: J69.0 Pneumonitis due to inhalation of food and vomit (principal); G40.909 Epilepsy, unspecified, not intractable, without status epilepticus; D69.6 Thrombocytopenia, unspecified; F72 Severe intellectual disabilities; Q67.5 Congenital deformity of spine; K59.00 Constipation, unspecified; K21.9 Gastro-esophageal reflux disease without esophagitis; R53.2 Functional quadriplegia; F79 Unspecified intellectual disabilities; I95.9 Hypotension, unspecified; G80.9 Cerebral palsy, unspecified; R00.0 Tachycardia, unspecified; Z93.1 Gastrostomy status
CPT/HCPCS: 0241U-QW; 36415; 71045-TC-FY; 80048; 80053; 81003; 82803; 83605; 83735; 83880; 84100; 84484; 85025; 85027; 85610; 85730; 86850; 86900; 86901; 87040; 87086; 87635; 93005; 93010; 99285-25; J0475; J1644

== ENCOUNTER 2024-06-11 21:12 | Inpatient (IN) | payer OTHER ==
[2024-06-11 22:48] LABS: VENOUS BASE EXCESS 14.1 mmol/L (-2-2); VENOUS O2 SATURATION 93.4 % (70-80); VENOUS PCO2 60.8 mmHg (38-52); VENOUS PH 7.45 (7.310-7.410)
[2024-06-11 23:06] LABS: BASO % 0.1 % (0-2.0); EOS % 0.6 % (0-4.5); HEMATOCRIT 41.8 % (32.4-45.2); HEMOGLOBIN 14.2 GM/dL (10.7-15.3); LYMPH % 7.6 % (8-40); MCH 30.6 pg (25.7-33.7); MCHC 34.1 g/dl (32.0-36.0); MEAN CELL VOLUME 89.8 fl (80-96); MEAN PLT VOLUME 9.6 fl (7.5-11.1); MONO % 7.3 % (3.8-10.2); NEUT % 84.4 % (42.8-82.8); PLATELET COUNT 102 10^3/uL (134-434); RBC 4.65 M/mm3 (3.60-5.2); RDW 15.3 % (11.6-15.6); WHITE BLOOD COUNT 8.2 K/mm3 (4.0-10.0)
[2024-06-11 23:33] LABS: ALBUMIN 3.4 g/dl (3.4-5.0); BILIRUBIN,TOTAL 0.4 mg/dL (0.2-1); BLOOD UREA NITROGEN 23.9 mg/dL (7-18); CREATININE 0.6 mg/dL (0.55-1.3); POTASSIUM 3.6 mmol/L (3.5-5.1); TOT PROT 7.4 g/dl (6.4-8.2)
[2024-06-12] MEDS: LACTATED RINGERS SOLUTION 1000 ML INFUS.BAG IV ONE (00:33)
[2024-06-12] MEDS ORDERED: AMPICILLIN NA/SULBACTAM NA 3 GM/100 ML BAG IVPB ONE (01:48)
[2024-06-12] MEDS: AMPICILLIN NA/SULBACTAM NA 3 GM in SODIUM CHLORIDE 100 ML IVPB ONE (01:50)
[2024-06-12] MEDS ORDERED: ALBUTEROL SO4 2.5/IPRATROPIUM 0.5 INH SOL 3 ML VIAL.NEB. NEB PRN (03:11)
[2024-06-12] MEDS: LACTATED RINGERS SOLUTION 1,000 ML/1,000 ML INFUS.BAG IV SCH (03:48)
[2024-06-12] MEDS ORDERED: PIPERACILLIN/TAZOB 3.375 GM 3.375 GM/50 ML BAG IVPB ONE ×3 (03:55→19:09)
[2024-06-12] MEDS: PIPERACILLIN/TAZOB 3.375 GM 3.375 GM in DEXTROSE 5%-WATER - 50 ML IVPB SCH (04:02)
[2024-06-12] MEDS ORDERED: BACLOFEN 10 MG TABLET (FP) ONE ×2 (06:21→14:04)
[2024-06-12] MEDS: BACLOFEN 10 MG TABLET (FP) GT SCH (06:24)
[2024-06-12] MEDS ORDERED: SENNOSIDES 8.6MG TABLET (FP) PO PRN (07:30)
[2024-06-12] MEDS ORDERED: MAG HYDROX/AL HYDROX/SIMETH 30 ML UNIT-DOSE CUP GT PRN (07:30)
[2024-06-12 08:56] LABS: BASO % 0.3 % (0-2.0); EOS % 0.8 % (0-4.5); HEMOGLOBIN 13.5 GM/dL (10.7-15.3); LYMPH % 16.9 % (8-40); MCH 29.9 pg (25.7-33.7); MCHC 32.9 g/dl (32.0-36.0); MEAN CELL VOLUME 90.9 fl (80-96); MONO % 5.5 % (3.8-10.2); NEUT % 76.5 % (42.8-82.8); PLATELET COUNT 106 10^3/uL (134-434); RBC 4.51 M/mm3 (3.60-5.2); WHITE BLOOD COUNT 5.6 K/mm3 (4.0-10.0)
[2024-06-12 09:08] LABS: POTASSIUM 3.3 mmol/L (3.5-5.1)
[2024-06-12 09:11] LABS: ALBUMIN 3.2 g/dl (3.4-5.0); BLOOD UREA NITROGEN 22.8 mg/dL (7-18)
[2024-06-12 09:14] LABS: CREATININE 0.6 mg/dL (0.55-1.3); PHOSPHOROUS 3.4 mg/dL (2.5-4.9)
[2024-06-12 09:16] LABS: BILIRUBIN,TOTAL 0.5 mg/dL (0.2-1); TOT PROT 7.1 g/dl (6.4-8.2)
[2024-06-12] MEDS: MINERAL OIL ENEMA 133 ML ENEMA RC ONE ×3 (09:20→12:23)
[2024-06-12] MEDS ORDERED: POLYETHYLENE GLYCOL (HEALTHYLAX) 3350 17 GM PACKET ONE (09:28)
[2024-06-12] MEDS ORDERED: diazePAM 5 MG TABLET ONE (09:29)
[2024-06-12] MEDS ORDERED: SCOPOLAMINE HYDROBROMIDE 1 PATCH PATCH.TD72 ONE (09:29)
[2024-06-12] MEDS ORDERED: MAGNESIUM CITRATE 300 ML BOTTLE ONE (09:29)
[2024-06-12] MEDS ORDERED: BISACODYL 10 MG SUPP.RECT RC PRN (10:00)
[2024-06-12] MEDS ORDERED: PATIENT'S OWN MEDICATION (NON-FORMULARY) (Lactose-Reduced Food/Fiber [Jevity 1.5 Cal Liqui GT SCH (10:00)
[2024-06-12] MEDS ORDERED: POLYETHYLENE GLYCOL (HEALTHYLAX) 3350 17 GM PACKET GT SCH (10:00)
[2024-06-12] MEDS: POLYETHYLENE GLYCOL (HEALTHYLAX) 3350 17 GM PACKET GT ONE (12:21)
[2024-06-12] MEDS: AMINO ACIDS/PROTEIN HYDROLYS 30 ML LIQUID.PKT GT SCH (12:21)
[2024-06-12] MEDS: LORATADINE 10 MG TABLET GT SCH (12:21)
[2024-06-12] MEDS: MAGNESIUM CITRATE 300 ML BOTTLE GT ONE (12:21)
[2024-06-12] MEDS: SCOPOLAMINE HYDROBROMIDE 1 PATCH PATCH.TD72 TD SCH (12:22)
[2024-06-12] MEDS: diazePAM 5 MG TABLET GT SCH (12:22)
[2024-06-12] MEDS: levETIRAcetam 500 MG/5 ML ORAL SOLUTION (UNIT-DOSE CUPS) GT SCH (12:22)
[2024-06-12] MEDS: GLYCERIN 1 RECTAL SUPPOSITORY, ADULT PR ONE (14:01)
[2024-06-12] MEDS: POLYETHYLENE GLYCOL (HEALTHYLAX) 3350 17 GM PACKET GT SCH (14:02)
[2024-06-12] MEDS ORDERED: POTASSIUM CHLORIDE ORAL LIQUID 20 MEQ/15 ML ONE (19:09)
[2024-06-12] MEDS: POTASSIUM CHLORIDE ORAL LIQUID 20 MEQ/15 ML GT ONE (19:19)
[2024-06-13] MEDS ORDERED: PIPERACILLIN/TAZOB 3.375 GM 3.375 GM in DEXTROSE 5%-WATER - 50 ML IVPB SCH (02:00)
[2024-06-13] MEDS: PIPERACILLIN/TAZOB 3.375 GM 3.375 GM in DEXTROSE 5%-WATER - 50 ML IVPB SCH (03:21)
[2024-06-13 08:46] LABS: HEMATOCRIT 38.5 % (32.4-45.2); MCH 30.8 pg (25.7-33.7); MCHC 33.7 g/dl (32.0-36.0); MEAN CELL VOLUME 91.4 fl (80-96); MEAN PLT VOLUME 9.8 fl (7.5-11.1); PLATELET COUNT 83 10^3/uL (134-434); RBC 4.22 M/mm3 (3.60-5.2); RDW 15.6 % (11.6-15.6); WHITE BLOOD COUNT 2.9 K/mm3 (4.0-10.0)
[2024-06-13 08:56] LABS: POTASSIUM 3.3 mmol/L (3.5-5.1)
[2024-06-13 09:00] LABS: ALBUMIN 2.9 g/dl (3.4-5.0); BLOOD UREA NITROGEN 25.9 mg/dL (7-18); CALCIUM 9.2 mg/dL (8.5-10.1)
[2024-06-13 09:03] LABS: CREATININE 0.7 mg/dL (0.55-1.3)
[2024-06-13 09:05] LABS: BILIRUBIN,TOTAL 0.7 mg/dL (0.2-1); TOT PROT 6.5 g/dl (6.4-8.2)
[2024-06-13] MEDS ORDERED: SENNOSIDES 8.8 MG/5 ML SYRUP GT PRN (10:25)
[2024-06-13] MEDS ORDERED: SENNOSIDES 8.8 MG/5 ML SYRUP PO PRN (10:25)
[2024-06-13] MEDS: POTASSIUM CHLORIDE ORAL LIQUID 20 MEQ/15 ML PO ONE (11:23)
[2024-06-13] MEDS ORDERED: diazePAM RECTAL GEL 10 MG KIT (PRE-CALIBRATED) RC PRN (12:17)
[2024-06-13] MEDS: ACETAMINOPHEN 650 MG/20.3 ML ORAL SOLUTION (CUPS) GT PRN (16:50)
[2024-06-14 08:15] LABS: BASO % 0.1 % (0-2.0); EOS % 0.6 % (0-4.5); HEMATOCRIT 35.3 % (32.4-45.2); HEMOGLOBIN 11.6 GM/dL (10.7-15.3); LYMPH % 8.8 % (8-40); MCH 30.2 pg (25.7-33.7); MCHC 32.8 g/dl (32.0-36.0); MEAN PLT VOLUME 9.5 fl (7.5-11.1); MONO % 5.5 % (3.8-10.2); PLATELET COUNT 91 10^3/uL (134-434); RBC 3.84 M/mm3 (3.60-5.2); RDW 14.9 % (11.6-15.6); WHITE BLOOD COUNT 7.2 K/mm3 (4.0-10.0)
[2024-06-14] MEDS: NAPHAZOLINE/PHENIRAMINE OPHTHALMIC 15 ML BOTTLE OD SCH (09:51)
[2024-06-14] MEDS: POTASSIUM CHLORIDE ORAL LIQUID 20 MEQ/15 ML PEG ONE (15:59)
[2024-06-14] MEDS: KCL 10 MEQ IVPB 10 MEQ/100 ML INFUS.BAG IVPB SCH (16:00)
[2024-06-14 19:45] LABS: ALBUMIN 2.7 g/dl (3.4-5.0); ALK PHOS 112 U/L (45-117); ANION GAP 3 mmol/L (4-13); BILIRUBIN,TOTAL 0.5 mg/dL (0.2-1); BLOOD UREA NITROGEN 22.9 mg/dL (7-18); CALCIUM 8.6 mg/dL (8.5-10.1); CHLORIDE 108 mmol/L (98-107); CO2 27 mmol/L (21-32); CREATININE 0.7 mg/dL (0.55-1.3); GLUCOSE,RANDOM 103 mg/dL (74-106); POTASSIUM 6.2 mmol/L (3.5-5.1); SGOT/AST 41 U/L (15-37); SGPT/ALT 49 U/L (13-61); SODIUM 138 mmol/L (136-145); TOT PROT 6.6 g/dl (6.4-8.2)
[2024-06-14 22:42] LABS: POTASSIUM 4.4 mmol/L (3.5-5.1)
[2024-06-14 22:43] LABS: CALCIUM 8.8 mg/dL (8.5-10.1)
[2024-06-14 22:44] LABS: BLOOD UREA NITROGEN 21.7 mg/dL (7-18)
[2024-06-14 22:47] LABS: CREATININE 0.7 mg/dL (0.55-1.3)
[2024-06-15 06:58] LABS: HEMATOCRIT 34.6 % (32.4-45.2); HEMOGLOBIN 11.3 GM/dL (10.7-15.3); MCH 30.5 pg (25.7-33.7); MCHC 32.6 g/dl (32.0-36.0); MEAN CELL VOLUME 93.5 fl (80-96); WHITE BLOOD COUNT 6.3 K/mm3 (4.0-10.0)
[2024-06-15 07:05] LABS: POTASSIUM 4.2 mmol/L (3.5-5.1)
[2024-06-15 07:09] LABS: ALBUMIN 2.6 g/dl (3.4-5.0); BLOOD UREA NITROGEN 20.3 mg/dL (7-18); CALCIUM 8.5 mg/dL (8.5-10.1)
[2024-06-15 07:13] LABS: CREATININE 0.6 mg/dL (0.55-1.3)
[2024-06-15 07:14] LABS: BILIRUBIN,TOTAL 0.4 mg/dL (0.2-1); TOT PROT 5.7 g/dl (6.4-8.2)
[2024-06-15 23:55] VITALS: BMI 13.7
[2024-06-16 06:58] LABS: BASO % 0.6 % (0-2.0); EOS % 9.8 % (0-4.5); HEMOGLOBIN 12.3 GM/dL (10.7-15.3); LYMPH % 26.8 % (8-40); MCHC 32.4 g/dl (32.0-36.0); MEAN CELL VOLUME 92.7 fl (80-96); MEAN PLT VOLUME 8.7 fl (7.5-11.1); MONO % 7.7 % (3.8-10.2); NEUT % 55.1 % (42.8-82.8); PLATELET COUNT 128 10^3/uL (134-434); RDW 14.8 % (11.6-15.6); WHITE BLOOD COUNT 5.2 K/mm3 (4.0-10.0)
[2024-06-16 07:21] LABS: POTASSIUM 4.1 mmol/L (3.5-5.1)
[2024-06-16 07:25] LABS: BLOOD UREA NITROGEN 18.2 mg/dL (7-18)
[2024-06-16 07:27] LABS: MAGNESIUM 1.9 mg/dL (1.8-2.4)
[2024-06-16 07:29] LABS: CREATININE 0.6 mg/dL (0.55-1.3); PHOSPHOROUS 3.2 mg/dL (2.5-4.9)
[2024-06-16 11:18] VITALS: TEMP 98.6
[2024-06-16 14:34] VITALS: BP 94/67; PULSE 100; RESP 20
== END 2024-06-16 15:27 | DRG 137 ==
LOC: JER 21:12 → JERBED 06-12 01:47 → OBSVTOIN 06-12 02:26 → J4W 06-12 21:01
PROVIDERS: ADMIT Internal Medicine; ATTEND Internal Medicine
DX: J69.0 Pneumonitis due to inhalation of food and vomit (principal); R53.2 Functional quadriplegia; F73 Profound intellectual disabilities; M41.9 Scoliosis, unspecified; G80.9 Cerebral palsy, unspecified; G40.909 Epilepsy, unspecified, not intractable, without status epilepticus; K59.00 Constipation, unspecified; R09.02 Hypoxemia; E87.6 Hypokalemia
CPT/HCPCS: 0241U-QW; 36415; 70450-TC; 71250-TC; 74176-TC; 80048; 80053; 82248; 82803; 82962; 83605; 83690; 83735; 84100; 84484; 85025; 85027; 85651; 87635; 93005; 93010; 99285-25; G0378; J0475

== ENCOUNTER 2024-12-09 10:55 | Emergency (ER) | payer OTHER ==
[2024-12-09 11:35] VITALS: BP 135/79; PULSE 107; RESP 22; TEMP 98.4; BMI 19.8
[2024-12-09 11:57] LABS: ABSOLUTE IMMATURE GRANULOCYTES 0.03 x10^3/uL (0.0-0.031); BASOPHILS # 0.02 x10^3/uL (0.01-0.08); HEMATOCRIT 42.7 % (34.1-44.9); HEMOGLOBIN 14.1 g/dL (11.2-15.7); MEAN CELL VOLUME 89.7 fl (79.4-94.8); MEAN PLT VOLUME 10.4 fl (9.4-12.3); MONOCYTE # 0.64 x10^3/uL (0.24-0.86); MONOCYTE % 7.9 % (4.7-12.5); PLATELET COUNT 218 x10^3/uL (182-369); RDW 13.3 % (12.3-16.6)
[2024-12-09 12:20] LABS: POTASSIUM 3.7 mmol/L (3.5-5.1)
[2024-12-09 12:22] LABS: CALCIUM 9.8 mg/dL (8.5-10.1)
[2024-12-09 12:23] LABS: ALBUMIN 3.4 g/dl (3.4-5.0); BLOOD UREA NITROGEN 17.4 mg/dL (7-18)
[2024-12-09 12:26] LABS: CREATININE 0.7 mg/dL (0.55-1.3)
[2024-12-09 12:27] LABS: BILIRUBIN,TOTAL 0.3 mg/dL (0.2-1); TOT PROT 7.2 g/dl (6.4-8.2)
[2024-12-09 13:12] LABS: HIV INTERPRETATION NEGATIVE (NEGATIVE)
[2024-12-09 13:13] LABS: HCV DIAGNOSTIC IN-HOUSE W/RFLX NON-REACTIVE (NONREACTIVE)
== END 2024-12-09 15:06 ==
LOC: JER 10:55
DX: G40.909 Epilepsy, unspecified, not intractable, without status epilepticus (principal)
CPT/HCPCS: 36415; 80053; 80177; 82962; 85025; 86803; 87389; 93005; 93010; 99284-25